=== PATIENT | female | born 1970 | race Native Hawaiian/Other Pacific Islander ===

== ENCOUNTER 2017-05-27 09:51 | Inpatient (IN) | payer OTHER ==
[2017-05-27 10:00] VITALS: BMI 31.2
--- NOTE | 2017-05-27 10:55 | C.PDOC ---
History Of Present Illness 46 y/o female presents to ED sent by [employer] for urgent dialysis secondary to onset Uremia. Patient saw m1 armor crewman yesterday who instructed for patient to come to ED for dialysis. Patient denies sob, chest pain, confusion or any other complaints at this time. PMD: Dr. Carrera Time Seen by Provider: 05/27/17 10:06 Chief Complaint (Nursing): Female Genitourinary History Per: Patient History/Exam Limitations: no limitations Onset/Duration Of Symptoms: Days Current Symptoms Are (Timing): Still Present Past Medical History Reviewed: Historical Data, Nursing Documentation, Vital Signs Vital Signs: Last Vital Signs Temp 97.6 F 05/29/17 12:07 Pulse 88 05/29/17 12:07 Resp 20 05/29/17 12:07 BP 134/74 05/29/17 12:07 Pulse Ox 96 05/29/17 12:07 - Medical History PMH: HTN Surgical History: No Surg Hx Family History: States: No Known Family Hx - Social History Hx Alcohol Use: No Hx Substance Use: No - Immunization History Hx Tetanus Toxoid Vaccination: No Hx Influenza Vaccination: No Hx Pneumococcal Vaccination: No Review Of Systems Except As Marked, All Systems Reviewed And Found Negative. Constitutional: Negative for: Fever, Chills Cardiovascular: Negative for: Chest Pain Respiratory: Negative for: Shortness of Breath Gastrointestinal: Negative for: Nausea, Vomiting Skin: Negative for: Rash Physical Exam - Physical Exam Appears: Non-toxic, No Acute Distress Skin: Warm, Dry, No Rash Head: Atraumatic, Normacephalic Oral Mucosa: Moist Neck: Normal ROM, Supple Cardiovascular: Rhythm Regular Respiratory: Normal Breath Sounds, No Rales, No Rhonchi, No Wheezing Gastrointestinal/Abdominal: Soft, No Tenderness, No Guarding, No Rebound Extremity: Normal ROM, Capillary Refill (<2 seconds) Neurological/Psych: Oriented x3 ED Course And Treatment - Laboratory Results Result Diagrams: 05/29/17 08:06 05/29/17 08:06 O2 Sat by Pulse Oximetry: 100 (RA) Pulse Ox Interpretation: Normal Medical Decision Making Medical Decision Making: Plan: Blood work Progress: 11am- patient seen at ED by Dr. ricardo and Dr. Liriano Disposition - Disposition Disposition: HOSPITALIZED Disposition Time: 11:24 Condition: STABLE - Clinical Impression Clinical Impression: Renal failure - Scribe Statement The provider has reviewed the documentation as recorded by the Muna Wan All medical record entries made by the Muna were at my direction and personally dictated by me. I have reviewed the chart and agree that the record accurately reflects my personal performance of the history, physical exam, medical decision making, and the department course for this patient. I have also personally directed, reviewed, and agree with the discharge instructions and disposition.
[2017-05-27 10:59] LABS: BASO % 0.3 % (0.0-2.0); EOS # 1.2 K/uL (0.0-0.7); EOS % 13.6 % (0.0-4.0); HEMOGLOBIN 8.8 g/dL (11.0-16.0); LYMPH # 1.3 K/uL (1.0-4.3); LYMPH % 14.5 % (20.0-40.0); MEAN CELL VOLUME 93.3 fL (81.0-99.0); MEAN CORPUSCULAR HEMOGLOBIN 31.6 pg (27.0-31.0); MEAN CORPUSCULAR HGB CONC 33.8 g/dL (33.0-37.0); MEAN PLATELET VOLUME 9.5 fL (7.2-11.7); MONO # 0.5 K/uL (0.0-0.8); NEUT # 5.8 K/uL (1.8-7.0); NEUT % 65.6 % (50.0-75.0); NRBC % 0.1 % (0.0-2.0); RBC 2.77 Mil/uL (3.80-5.20); RED CELL DISTRIBUTION WIDTH 15.6 % (11.5-14.5); WHITE BLOOD COUNT 8.9 K/uL (4.8-10.8)
[2017-05-27] MEDS ORDERED: ceFAZolin IV 1 gm in Dextrose 1 GM/50 ML BAG IVPB ONE (11:42)
[2017-05-27] MEDS ORDERED: Lidocaine 1% Inj (20ml) ONE (11:42)
[2017-05-27] MEDS ORDERED: HEPARIN-NS 5,000 UNITS/500 ML 5,000 UNIT/500 ML BAG IV ONE (11:42)
[2017-05-27] MEDS ORDERED: Sodium Chloride 0.9% 500 ML IV ONE (11:45)
[2017-05-27 11:46] LABS: ALB/GLOB RATIO 0.9 (1.0-2.1); ALBUMIN 3.5 g/dL (3.5-5.0); CALCIUM 4.7 mg/dl (8.6-10.4)
[2017-05-27] MEDS ORDERED: Midazolam 2 MG/2 ML VIAL ONE (12:01)
[2017-05-27] MEDS ORDERED: Propofol 10 mg/ml Inj (20 ML) ONE (12:06)
[2017-05-27] MEDS ORDERED: Bacitracin Ointment 30 GM TUBE ONE (12:17)
--- NOTE | 2017-05-27 12:50 | PCM.SURG1 ---
Surgeon's Initial Post Op Note - Surgeon's Notes Surgeon: Jennifer Combine Operator: PGY4 Type of Anesthesia: General Endo, Local Pre-Operative Diagnosis: ESRD Operative Findings: see op note Post-Operative Diagnosis: ESRD Operation Performed: R IJ [email or web address] Specimen/Specimens Removed: n/a Estimated Blood Loss: EBL {In ML}: 20 Blood Products Given: N/A Drains Used: No Drains Post-Op Condition: Good Date of Surgery/Procedure: 05/27/17 Time of Surgery/Procedure: 11:50
[2017-05-27] MEDS ORDERED: Oxycodone/Acetaminophen 5/325 mg Tab PO PRN (12:51)
--- NOTE | 2017-05-27 13:53 | RAD ---
Chest x-ray single frontal view History: PermCath placement. Comparison: None available. Findings: Right central venous catheter tip extending into the right atrium. Mild venous congestion. Patchy increased markings at the left lung base. Tortuous ectatic aorta. Cardiomegaly. Degenerative changes in the spine. Impression: Right central venous catheter tip extending into the right atrium. Mild venous congestion. Patchy increased markings at the left lung base. Tortuous ectatic aorta. Cardiomegaly.
--- NOTE | 2017-05-27 14:22 | RAD ---
PROCEDURE: Intraoperative Fluoroscopy. HISTORY: RENAL FAILURE FINDINGS: Fluoroscopic assistance was provided for right-sided PermCath placement. Please refer to the operative report from
[2017-05-27 16:40] LABS: HEPATITIS B SURFACE AG NEGATIVE (NEGATIVE)
[2017-05-27 16:45] LABS: FERRITIN 28.8 ng/mL; HEPATITIS B CORE AB Negative (NEGATIVE)
[2017-05-27 16:57] LABS: HEPATITIS C ANTIBODY Negative (NEGATIVE)
--- NOTE | 2017-05-27 17:03 | CP.PCM.HP ---
History of Present Illness - History of Present Illness History of Present Illness: CC: for Dialysis HPI: 46 year old female. h/o HTN, Renal Disease, Non-compliant c/o skin rash " all over". Blood test suggestive for renal failure. dialysis and Advised to F /u Dr. Granados. Advised admission for dialysis and renal catheter insertion. Present on Admission - Present on Admission Any Indicators Present on Admission: Yes History of DVT/PE: No History of Uncontrolled Diabetes: No Urinary Catheter: No Decubitus Ulcer Present: No Review of Systems - Review of Systems All systems: reviewed and no additional remarkable complaints except (skin rash , fatigue) Past Patient History - Infectious Disease Hx of Infectious Diseases: None - Tetanus Immunizations Tetanus Immunization: Unknown - Past Medical History & Family History Past Medical History?: Yes - Past Social History Smoking Status: Never Smoked Chewing Tobacco Use: No Cigar Use: No Alcohol: None Home Situation {Lives}: With Family - CARDIAC Hx Hypertension: Yes - PSYCHIATRIC Hx Substance Use: No - SURGICAL HISTORY Hx Surgeries: No - ANESTHESIA Hx Anesthesia: No Meds Allergies/Adverse Reactions: Allergies Allergy/AdvReac Type Severity Reaction Status Date / Time EGG Allergy ITCHING Verified 05/28/17 15:42 Physical Exam - Constitutional Appears: No Acute Distress - Head Exam Head Exam: NORMAL INSPECTION - Eye Exam Eye Exam: Normal appearance - ENT Exam ENT Exam: Normal Exam - Neck Exam Neck exam: Positive for: Normal Inspection - Respiratory Exam Respiratory Exam: NORMAL BREATHING PATTERN - Cardiovascular Exam Cardiovascular Exam: REGULAR RHYTHM - GI/Abdominal Exam GI & Abdominal Exam: Soft - Rectal Exam Rectal Exam: Deferred - Extremities Exam Extremities exam: Negative for: pedal edema - Back Exam Back exam: NORMAL INSPECTION - Neurological Exam Neurological exam: Alert - Psychiatric Exam Psychiatric exam: Anxious - Skin Skin Exam: Dry, Rash Results - Vital Signs Recent Vital Signs: Last Vital Signs Temp 97.4 F L 05/27/17 15:25 Pulse 79 05/27/17 16:08 Resp 18 05/27/17 16:08 BP 148/82 05/27/17 16:25 Pulse Ox 100 05/27/17 15:25 - Labs Result Diagrams: 05/29/17 08:06 05/29/17 08:06 Labs: Laboratory Results - last 24 hr 05/27/17 05/27/17 05/27/17 10:49 11:02 11:25 WBC 8.9 RBC 2.77 L Hgb 8.8 L Hct 25.9 L MCV 93.3 MCH 31.6 H MCHC 33.8 RDW 15.6 H Plt Count 289 MPV 9.5 Neut % (Auto) 65.6 Lymph % (Auto) 14.5 L [place] % (Auto) 6.0 Eos % (Auto) 13.6 H Baso % (Auto) 0.3 Neut # 5.8 Lymph # 1.3 [place] # 0.5 Eos # 1.2 H Baso # 0.0 Sodium 137 Potassium 4.0 Chloride 109 H Carbon Dioxide 12 L Anion Gap 20 BUN 84 H Creatinine 12.4 H* Est GFR ( Amer) 4 Est GFR (Non-Af Amer) 3 Random Glucose 92 Calcium 4.7 L* % Saturation Ferritin Total Bilirubin 0.4 AST 43 H ALT 36 Alkaline Phosphatase 84 Total Protein 7.4 Albumin 3.5 Globulin 3.9 Albumin/Globulin Ratio 0.9 L Urine HCG, Qual Negative Hep Bs Antigen Hep Bs Antibody Hep B Core IgM Ab Hepatitis C Antibody 05/27/17 05/27/17 05/27/17 15:42 15:42 15:42 WBC RBC Hgb Hct MCV MCH MCHC RDW Plt Count MPV Neut % (Auto) Lymph % (Auto) [place] % (Auto) Eos % (Auto) Baso % (Auto) Neut # Lymph # [place] # Eos # Baso # Sodium Potassium Chloride Carbon Dioxide Anion Gap BUN Creatinine Est GFR ( Amer) Est GFR (Non-Af Amer) Random Glucose Calcium % Saturation 15 L Ferritin 28.8 Total Bilirubin AST ALT Alkaline Phosphatase Total Protein Albumin Globulin Albumin/Globulin Ratio Urine HCG, Qual Hep Bs Antigen Negative Hep Bs Antibody Positive Hep B Core IgM Ab Negative Hepatitis C Antibody Negative Assessment & Plan (1) Renal failure Status: Acute (2) Anemia Status: Chronic (3) HTN (hypertension) Status: Chronic - Assessment and Plan (Free Text) Assessment: A/P: Continue medications. Appreciate Renal notes - Date & Time Date: 05/27/17 Time: 17:07
[2017-05-27] MEDS: Sodium Chloride 0.9% 1,000 ML IV SCH (20:06)
--- NOTE | 2017-05-27 23:25 | OP ---
PROCEDURE DATE: 05/27/2017 PREOPERATIVE DIAGNOSIS: Renal failure. POSTOPERATIVE DIAGNOSIS: Renal failure. PROCEDURE CARRIED OUT: Placement of Perm-A-Cath, right jugular vein, with C-arm fluoroscopy, ultrasound-guided puncture, and micropuncture technique. SURGEON: Dr. Rodriguez. ROUTING EQUIPMENT TENDER: Dr. Friedman. ANESTHESIOLOGIST: Dr. Swenson. INDICATIONS: A 46-year-old [place] woman with shortness of breath and other problems associated with her renal failure who was admitted through the emergency room and seen on an emergency basis. OPERATIVE FINDINGS: Catheter was inserted uneventfully via the jugular vein. DESCRIPTION OF PROCEDURE: Patient was given local anesthesia. Using ultrasound guidance and micropuncture technique, the right jugular vein was punctured. Under fluoroscopic control, guidewire was advanced centrally. A sheath dilator was passed over this and the catheter was positioned with the tip in the superior vena cava and right atrial junction and brought out on the right chest wall via the right internal jugular vein. Subsequent to the placement of the catheter, it was secured to the skin with nylon sutures and compressive dressing applied. Blood loss of the procedure was 10 to 20 mL. The operation carried out is Perm-A-Cath on right jugular vein with C-arm fluoroscopy, ultrasound-guided puncture, and micropuncture technique. Ultrasound images of the neck showed the vein was 15 mm in diameter with normal compressibility and no evidence of intraluminal thrombosis. Jesse Rodriguez Jr., MD cc: Dr. Celeste.
--- NOTE | 2017-05-28 08:37 | CP.PCM.PN ---
Subjective - Date & Time of Evaluation Date of Evaluation: 05/28/17 Time of Evaluation: 08:24 - Subjective Subjective: Pt no complain. No CP, no SOB, no cough, no palpitation. no n/v, o diarrhea, Justt sore on R chest c/o procedure. Objective - Vital Signs/Intake and Output Vital Signs (last 24 hours): Temp Pulse Resp BP Pulse Ox 98.2 F 90 18 129/75 99 05/27/17 23:35 05/28/17 00:00 05/27/17 23:35 05/27/17 23:35 05/27/17 23:35 Intake and Output: 05/28/17 05/28/17 06:59 18:59 Intake Total 520 Balance 520 - Medications Medications: Current Medications Sodium Chloride (Sodium Chloride 0.9%) 1,000 mls @ 50 mls/hr IV .Q20H [facility] Last Admin: 05/27/17 20:06 Dose: 50 mls/hr Oxycodone/Acetaminophen (Percocet 5/325 Mg Tab) 1 tab PO Q6H PRN PRN Reason: Pain, moderate (4-7) Stop: 05/30/17 12:52 Pneumococcal Polyvalent Vaccine (Pneumovax 23 Vaccine) 0.5 ml IM .ONCE ONE Stop: 05/29/17 10:01 - Labs Labs: 05/27/17 10:49 05/27/17 11:25 - Constitutional Appears: No Acute Distress - Eye Exam Eye Exam: Normal appearance - ENT Exam ENT Exam: Mucous Membranes Moist - Respiratory Exam Respiratory Exam: Decreased Breath Sounds. absent: Rales, Rhonchi, Wheezes - Cardiovascular Exam Cardiovascular Exam: REGULAR RHYTHM, +S1, +S2. absent: Gallop, JVD, Murmur - GI/Abdominal Exam GI & Abdominal Exam: absent: Tenderness, Mass - Extremities Exam Extremities Exam: Full ROM, Normal Capillary Refill. absent: Calf Tenderness, Joint Swelling Assessment and Plan - Assessment and Plan (Free Text) Assessment: End stage renal disease For dialysis Supportive care
[2017-05-28] MEDS ORDERED: DiphenhydrAMINE 50 mg/ml Inj IVP STA (10:13)
[2017-05-28] MEDS: Sodium Chloride 0.9% 1,000 ML IV SCH ×2 (10:39→18:54)
--- NOTE | 2017-05-28 12:29 | CP.PCM.PN ---
Subjective - Date & Time of Evaluation Date of Evaluation: 05/28/17 Time of Evaluation: 07:05 - Subjective Subjective: Vascular Surgery Note for Dr. Rodriguez Patient seen and examined at bedside. No acute event overnight. She is s/p permacath insertion POD#1. Pain is controlled. Patient has no complaints. Objective - Vital Signs/Intake and Output Vital Signs (last 24 hours): Temp Pulse Resp BP Pulse Ox 98.5 F 65 20 116/59 L 96 05/28/17 08:37 05/28/17 08:37 05/28/17 08:37 05/28/17 08:37 05/28/17 08:37 Intake and Output: 05/28/17 05/28/17 06:59 18:59 Intake Total 520 Balance 520 - Medications Medications: Current Medications Sodium Chloride (Sodium Chloride 0.9%) 1,000 mls @ 50 mls/hr IV .Q20H [facility] Last Admin: 05/28/17 10:39 Dose: Not Given Oxycodone/Acetaminophen (Percocet 5/325 Mg Tab) 1 tab PO Q6H PRN PRN Reason: Pain, moderate (4-7) Stop: 05/30/17 12:52 Pneumococcal Polyvalent Vaccine (Pneumovax 23 Vaccine) 0.5 ml IM .ONCE ONE Stop: 05/29/17 10:01 - Labs Labs: 05/27/17 10:49 05/27/17 11:25 - Constitutional Appears: No Acute Distress - Head Exam Head Exam: ATRAUMATIC, NORMOCEPHALIC - Eye Exam Eye Exam: Normal appearance - ENT Exam ENT Exam: Mucous Membranes Moist - Neck Exam Additional comments: r sided permacath - Respiratory Exam Respiratory Exam: NORMAL BREATHING PATTERN - Cardiovascular Exam Cardiovascular Exam: REGULAR RHYTHM - GI/Abdominal Exam GI & Abdominal Exam: Soft. absent: Tenderness - Extremities Exam Extremities Exam: Normal Capillary Refill - Neurological Exam Neurological Exam: Alert, Awake, Oriented x3 - Psychiatric Exam Psychiatric exam: Anxious, Normal Mood - Skin Skin Exam: Dry, Intact, Normal Color, Warm Assessment and Plan - Assessment and Plan (Free Text) Plan: 46 F with ESRD requiring HD, s/p permacath insertion POD#1 -Plan for AVF creation Wednesday -Arm restriction -f/u vein mapping -NPO past MN Wednesday evening -Discussed with Dr. Jennifer Clifford PGY1
--- NOTE | 2017-05-28 14:50 | CP.PCM.CON ---
History of Present Illness - History of Present Illness History of Present Illness: 46 y/o FF admitted with progressive weakness, nausea, ELENA and pruritis associated with creatinine 12. Told of CKD 5- admitted for initiation of dialysis. Will transition to CAPD HD started 05/28- tolerated well. Presumptive dx IgA nephropathy- no bx done PMH: HTN DM 2 CKD 5 MICROSCOPIC HEMATURIA/ PROTEINURIA PSH- NONE Review of Systems - Constitutional Constitutional: Fatigue, Malaise, Weakness - EENT Eyes: absent: As Per HPI, Blind Spots, Blurred Vision, Change in Vision, Decreased Night Vision, Diplopia, Discharge, Dry Eye, Exophthalmos, Floaters, Irritation, Itchy Eyes, Loss of Peripheral Vision, Pain, Photophobia, Requires Corrective Lenses, Sees Flashes, Spots in Vision, Tunnel Vision, Other Visual Disturbances, Loss of Vision, Other Ears: absent: As Per HPI, Decreased Hearing, Ear Discharge, Ear Pain, Tinnitus, Abnormal Hearing, Disequilibrium, Dizziness, Other Nose/Mouth/Throat: absent: As Per HPI, Epistaxis, Nasal Congestion, Nasal Discharge, Nasal Obstruction, Nasal Trauma, Nose Pain, Post Nasal Drip, Sinus Pain, Sinus Pressure, Bleeding Gums, Change in Voice, Dental Pain, Dry Mouth, Dysphagia, Halitosis, Hoarsness, Lip Swelling, Mouth Lesions, Mouth Pain, Odynophagia, Sore Throat, Throat Swelling, Tongue Swelling, Facial Pain, Neck Pain, Neck Mass, Other - Cardiovascular Cardiovascular: Dyspnea on Exertion, Leg Edema - Respiratory Respiratory: Cough - Gastrointestinal Gastrointestinal: Dysphagia, Nausea - Genitourinary Genitourinary: As Per HPI - Musculoskeletal Musculoskeletal: Muscle Cramps, Muscle Weakness - Integumentary Integumentary: As Per HPI - Neurological Neurological: Weakness Past Patient History - Infectious Disease Hx of Infectious Diseases: None - Tetanus Immunizations Tetanus Immunization: Unknown - Past Medical History & Family History Past Medical History?: Yes Past Family History: Reviewed and not pertinent - Past Social History Smoking Status: Never Smoked Chewing Tobacco Use: No Cigar Use: No Alcohol: None Drugs: Denies Home Situation {Lives}: With Family - CARDIAC Hx Hypertension: Yes - PULMONARY Hx Respiratory Disorders: No - NEUROLOGICAL Hx Neurological Disorder: No - HEENT Hx HEENT Problems: No - RENAL Hx Chronic Kidney Disease: No - ENDOCRINE/METABOLIC Hx Endocrine Disorders: No - HEMATOLOGICAL/ONCOLOGICAL Hx Blood Transfusions: No - INTEGUMENTARY Hx Dermatological Problems: No - MUSCULOSKELETAL/RHEUMATOLOGICAL Hx Falls: No - GASTROINTESTINAL Hx Gastrointestinal Disorders: No - GENITOURINARY/GYNECOLOGICAL Hx Genitourinary Disorders: No - PSYCHIATRIC Hx Substance Use: No - SURGICAL HISTORY Hx Surgeries: No - ANESTHESIA Hx Anesthesia: No Hx Anesthesia Reactions: No Hx Malignant Hyperthermia: No Has any member of the family had a problem w/ anesthesia?: No Meds Allergies/Adverse Reactions: Allergies Allergy/AdvReac Type Severity Reaction Status Date / Time No Known Allergies Allergy Verified 05/27/17 09:59 - Medications Medications: Current Medications Sodium Chloride (Sodium Chloride 0.9%) 1,000 mls @ 50 mls/hr IV .Q20H [facility] Last Admin: 05/28/17 10:39 Dose: Not Given Oxycodone/Acetaminophen (Percocet 5/325 Mg Tab) 1 tab PO Q6H PRN PRN Reason: Pain, moderate (4-7) Stop: 05/30/17 12:52 Pneumococcal Polyvalent Vaccine (Pneumovax 23 Vaccine) 0.5 ml IM .ONCE ONE Stop: 05/29/17 10:01 Physical Exam - Constitutional Appears: No Acute Distress, Chronically Ill - Head Exam Head Exam: ATRAUMATIC, NORMAL INSPECTION - Eye Exam Eye Exam: EOMI, Normal appearance - Neck Exam Neck exam: Positive for: Normal Inspection. Negative for: Tenderness - Respiratory Exam Respiratory Exam: Clear to Auscultation Bilateral, NORMAL BREATHING PATTERN - Cardiovascular Exam Cardiovascular Exam: REGULAR RHYTHM, +S1 - GI/Abdominal Exam GI & Abdominal Exam: Soft. absent: Tenderness - Extremities Exam Extremities exam: Positive for: normal inspection, pedal edema - Neurological Exam Neurological exam: Alert, CN II-XII Intact - Skin Skin Exam: Dry, Warm Results - Vital Signs Recent Vital Signs: Last Vital Signs Temp 98.5 F 05/28/17 08:37 Pulse 65 05/28/17 08:37 Resp 20 05/28/17 08:37 BP 116/59 L 05/28/17 08:37 Pulse Ox 96 05/28/17 08:37 - Labs Result Diagrams: 05/27/17 10:49 05/27/17 11:25 Labs: Laboratory Results - last 24 hr 05/27/17 05/27/17 05/27/17 15:42 15:42 15:42 % Saturation 15 L Ferritin 28.8 Hep Bs Antigen Negative Hep Bs Antibody Positive Hep B Core IgM Ab Negative Hepatitis C Antibody Negative Assessment & Plan (1) IgA nephropathy Status: Acute (2) Hypertensive chronic kidney disease with stage 5 chronic kidney disease or end stage renal disease Status: Acute (3) Type 2 diabetes mellitus with diabetic nephropathy Status: Acute (4) Hypocalcemia Status: Acute - Assessment and Plan (Free Text) Plan: Dialysis in AM then MWF PD cath placement IV Fe
[2017-05-28] MEDS ORDERED: Ferric Sodium Gluconat Complex 62.5 mg/5 ml Vial IVPB SCH (15:00)
[2017-05-28] MEDS: Ferric Sodium Gluconat Complex 125 MG in Sodium Chloride 0.9% 100 ML IVPB SCH (20:38)
[2017-05-29] MEDS: Sodium Chloride 0.9% 1,000 ML IV SCH (05:24)
[2017-05-29 08:23] LABS: HEMOGLOBIN 7.8 g/dL (11.0-16.0); MEAN CELL VOLUME 94.1 fL (81.0-99.0); MEAN PLATELET VOLUME 8.7 fL (7.2-11.7); RBC 2.53 Mil/uL (3.80-5.20); RED CELL DISTRIBUTION WIDTH 15.3 % (11.5-14.5); WHITE BLOOD COUNT 6.1 K/uL (4.8-10.8)
[2017-05-29 08:48] LABS: ALB/GLOB RATIO 0.9 (1.0-2.1); ALBUMIN 3.2 g/dL (3.5-5.0); CALCIUM 5.3 mg/dl (8.6-10.4)
--- NOTE | 2017-05-29 09:47 | CP.PCM.PN ---
Subjective - Date & Time of Evaluation Date of Evaluation: 05/29/17 Time of Evaluation: 09:45 - Subjective Subjective: Surgery Pt s&e. Pt had HD yesterday and today. Denies F/C/N/V/D/CP/SOB Objective - Vital Signs/Intake and Output Vital Signs (last 24 hours): Temp Pulse Resp BP Pulse Ox 98.7 F 91 H 17 149/86 98 05/29/17 09:05 05/29/17 09:05 05/29/17 09:05 05/29/17 09:35 05/29/17 09:05 Intake and Output: 05/29/17 05/29/17 06:59 18:59 Intake Total 400 Balance 400 - Medications Medications: Current Medications Calcium Acetate (Phoslo) 1,334 mg PO TID [facility] Last Admin: 05/28/17 18:55 Dose: 1,334 mg Sodium Chloride (Sodium Chloride 0.9%) 1,000 mls @ 50 mls/hr IV .Q20H [facility] Last Admin: 05/29/17 05:24 Dose: Not Given Ferric Sodium Gluconate Complex 125 mg/ Sodium Chloride 110 mls @ 110 mls/hr IVPB DAILY [facility] Stop: 06/05/17 15:01 Last Admin: 05/28/17 20:38 Dose: 110 mls/hr Oxycodone/Acetaminophen (Percocet 5/325 Mg Tab) 1 tab PO Q6H PRN PRN Reason: Pain, moderate (4-7) Stop: 05/30/17 12:52 Pneumococcal Polyvalent Vaccine (Pneumovax 23 Vaccine) 0.5 ml IM .ONCE ONE Stop: 05/29/17 10:01 - Labs Labs: 05/29/17 08:06 05/29/17 08:06 - Constitutional Appears: No Acute Distress - Head Exam Head Exam: ATRAUMATIC, NORMAL INSPECTION, NORMOCEPHALIC - Eye Exam Eye Exam: EOMI, Normal appearance, PERRL Pupil Exam: NORMAL ACCOMODATION, PERRL - ENT Exam ENT Exam: Mucous Membranes Moist, Normal Exam - Neck Exam Neck Exam: Full ROM, Normal Inspection. absent: Lymphadenopathy - Respiratory Exam Respiratory Exam: Clear to Ausculation Bilateral, NORMAL BREATHING PATTERN - Cardiovascular Exam Cardiovascular Exam: REGULAR RHYTHM, +S1, +S2. absent: Murmur - GI/Abdominal Exam GI & Abdominal Exam: Soft, Normal Bowel Sounds. absent: Distended, Tenderness - Rectal Exam Rectal Exam: NORMAL INSPECTION - Exam Exam: NORMAL INSPECTION External exam: NORMAL EXTERNAL EXAM - Extremities Exam Extremities Exam: Full ROM, Normal Capillary Refill, Normal Inspection. absent : Joint Swelling, Pedal Edema - Back Exam Back Exam: NORMAL INSPECTION - Neurological Exam Neurological Exam: Alert, Awake, CN II-XII Intact, Normal Gait, Oriented x3 - Psychiatric Exam Psychiatric exam: Normal Affect, Normal Mood - Skin Skin Exam: Dry, Intact, Normal Color, Warm Assessment and Plan - Assessment and Plan (Free Text) Assessment: 46 F with ESRD requiring HD, s/p permacath insertion POD#2 -Plan for PD catheter on Mon -NPO past MN Wednesday evening -Discussed with Dr. Rodriguez
[2017-05-29] MEDS ORDERED: Pneumococcal 23-Valent Vaccine IM ONE (10:00)
[2017-05-29] MEDS ORDERED: Epoetin Alfa 10,000 unit/ml Dialysis IV ONE (10:01)
--- NOTE | 2017-05-29 10:03 | CP.PCM.PN ---
Subjective - Date & Time of Evaluation Date of Evaluation: 05/29/17 Time of Evaluation: 10:15 - Subjective Subjective: presently on dialysis afebrile hct around 23 k low awake alert comfortable ROS no headache no chest vpain sob palpitations no abdomenal pain nausea vomting diarrhea no dysuria Objective - Vital Signs/Intake and Output Vital Signs (last 24 hours): Temp Pulse Resp BP Pulse Ox 98.7 F 91 H 17 149/86 98 05/29/17 09:05 05/29/17 09:05 05/29/17 09:05 05/29/17 09:35 05/29/17 09:05 Intake and Output: 05/29/17 05/29/17 06:59 18:59 Intake Total 400 Balance 400 - Medications Medications: Current Medications Calcium Acetate (Phoslo) 1,334 mg PO TID [facility] Last Admin: 05/28/17 18:55 Dose: 1,334 mg Sodium Chloride (Sodium Chloride 0.9%) 1,000 mls @ 50 mls/hr IV .Q20H [facility] Last Admin: 05/29/17 05:24 Dose: Not Given Ferric Sodium Gluconate Complex 125 mg/ Sodium Chloride 110 mls @ 110 mls/hr IVPB DAILY [facility] Stop: 06/05/17 15:01 Last Admin: 05/28/17 20:38 Dose: 110 mls/hr Oxycodone/Acetaminophen (Percocet 5/325 Mg Tab) 1 tab PO Q6H PRN PRN Reason: Pain, moderate (4-7) Stop: 05/30/17 12:52 Pneumococcal Polyvalent Vaccine (Pneumovax 23 Vaccine) 0.5 ml IM .ONCE ONE Stop: 05/29/17 10:01 - Labs Labs: 05/29/17 08:06 05/29/17 08:06 - Constitutional Appears: Well, No Acute Distress - Eye Exam Eye Exam: Normal appearance - ENT Exam ENT Exam: Mucous Membranes Moist - Respiratory Exam Respiratory Exam: Clear to Ausculation Bilateral - Cardiovascular Exam Cardiovascular Exam: REGULAR RHYTHM - GI/Abdominal Exam GI & Abdominal Exam: Soft. absent: Distended, Tenderness - Extremities Exam Extremities Exam: absent: Calf Tenderness - Neurological Exam Neurological Exam: Alert, Awake - Skin Skin Exam: Dry Assessment and Plan (1) IgA nephropathy Status: Acute (2) Type 2 diabetes mellitus with diabetic nephropathy Status: Acute (3) HTN (hypertension) Status: Chronic - Assessment and Plan (Free Text) Plan: epogen ordered iron ordered try to remove 1 kg tenckoff catheter insertion 05/31
[2017-05-29] MEDS: Ferric Sodium Gluconat Complex 125 MG in Sodium Chloride 0.9% 100 ML IVPB SCH (11:29)
[2017-05-30] MEDS: Sodium Chloride 0.9% 1,000 ML IV SCH ×2 (00:22→01:57)
--- NOTE | 2017-05-30 08:41 | CP.PCM.PN ---
Subjective - Date & Time of Evaluation Date of Evaluation: 05/30/17 Time of Evaluation: 08:39 - Subjective Subjective: Surgery Pt s&e. NAEON. Denies F/C/N/V/D/Cp/SOB/dizzienss. Objective - Vital Signs/Intake and Output Vital Signs (last 24 hours): Temp Pulse Resp BP Pulse Ox 97.7 F 81 18 122/72 100 05/30/17 08:25 05/30/17 08:25 05/30/17 08:25 05/30/17 08:25 05/30/17 08:25 Intake and Output: 05/30/17 05/30/17 06:59 18:59 Intake Total 1040 Balance 1040 - Medications Medications: Current Medications Calcium Acetate (Phoslo) 1,334 mg PO TID [facility] Last Admin: 05/29/17 18:37 Dose: 1,334 mg Epoetin Milton (Procrit) 10,000 unit IV MWF [facility] Sodium Chloride (Sodium Chloride 0.9%) 1,000 mls @ 50 mls/hr IV .Q20H [facility] Last Admin: 05/30/17 01:57 Dose: Not Given Ferric Sodium Gluconate Complex 125 mg/ Sodium Chloride 110 mls @ 110 mls/hr IVPB DAILY [facility] Stop: 06/05/17 15:01 Last Admin: 05/29/17 11:29 Dose: 110 mls/hr Oxycodone/Acetaminophen (Percocet 5/325 Mg Tab) 1 tab PO Q6H PRN PRN Reason: Pain, moderate (4-7) Stop: 05/30/17 12:52 - Labs Labs: 05/29/17 08:06 05/29/17 08:06 - Constitutional Appears: No Acute Distress - Head Exam Head Exam: ATRAUMATIC, NORMAL INSPECTION, NORMOCEPHALIC - Eye Exam Eye Exam: EOMI, Normal appearance, PERRL Pupil Exam: NORMAL ACCOMODATION, PERRL - ENT Exam ENT Exam: Mucous Membranes Moist, Normal Exam - Neck Exam Neck Exam: Full ROM, Normal Inspection. absent: Lymphadenopathy - Respiratory Exam Respiratory Exam: Clear to Ausculation Bilateral, NORMAL BREATHING PATTERN - Cardiovascular Exam Cardiovascular Exam: REGULAR RHYTHM, +S1, +S2. absent: Murmur - GI/Abdominal Exam GI & Abdominal Exam: Soft, Normal Bowel Sounds. absent: Tenderness - Extremities Exam Extremities Exam: Full ROM, Normal Capillary Refill, Normal Inspection. absent : Joint Swelling, Pedal Edema - Back Exam Back Exam: NORMAL INSPECTION - Neurological Exam Neurological Exam: Alert, Awake, CN II-XII Intact, Normal Gait, Oriented x3 - Psychiatric Exam Psychiatric exam: Normal Affect, Normal Mood - Skin Skin Exam: Dry, Intact, Normal Color, Warm Additional comments: Permacath in place. Assessment and Plan - Assessment and Plan (Free Text) Assessment: 46 F with ESRD requiring HD, s/p permacath insertion POD#3 -Plan for PD catheter on Mon -NPO past MN Wednesday evening -Discussed with Dr. Rodriguez
[2017-05-30] MEDS: Ferric Sodium Gluconat Complex 125 MG in Sodium Chloride 0.9% 100 ML IVPB SCH (10:18)
--- NOTE | 2017-05-30 12:18 | CP.PCM.PN ---
Subjective - Date & Time of Evaluation Date of Evaluation: 05/30/17 Time of Evaluation: 12:16 - Subjective Subjective: S: feels better. No fever. Objective - Vital Signs/Intake and Output Vital Signs (last 24 hours): Temp Pulse Resp BP Pulse Ox 97.7 F 81 18 122/72 100 05/30/17 08:25 05/30/17 08:25 05/30/17 08:25 05/30/17 08:25 05/30/17 08:25 Intake and Output: 05/30/17 05/30/17 06:59 18:59 Intake Total 1040 Balance 1040 - Medications Medications: Current Medications Calcium Acetate (Phoslo) 1,334 mg PO TID [facility] Last Admin: 05/30/17 10:21 Dose: 1,334 mg Epoetin Milton (Procrit) 10,000 unit IV MWF [facility] Sodium Chloride (Sodium Chloride 0.9%) 1,000 mls @ 50 mls/hr IV .Q20H [facility] Last Admin: 05/30/17 01:57 Dose: Not Given Ferric Sodium Gluconate Complex 125 mg/ Sodium Chloride 110 mls @ 110 mls/hr IVPB DAILY [facility] Stop: 06/05/17 15:01 Last Admin: 05/30/17 10:18 Dose: 110 mls/hr Oxycodone/Acetaminophen (Percocet 5/325 Mg Tab) 1 tab PO Q6H PRN PRN Reason: Pain, moderate (4-7) Stop: 05/30/17 12:52 - Labs Labs: 05/29/17 08:06 05/29/17 08:06 - Constitutional Appears: No Acute Distress - Head Exam Head Exam: NORMAL INSPECTION - Eye Exam Eye Exam: Normal appearance Pupil Exam: NORMAL ACCOMODATION - ENT Exam ENT Exam: Normal Exam - Neck Exam Neck Exam: Normal Inspection - Respiratory Exam Respiratory Exam: NORMAL BREATHING PATTERN - Cardiovascular Exam Cardiovascular Exam: REGULAR RHYTHM - GI/Abdominal Exam GI & Abdominal Exam: Soft - Rectal Exam Rectal Exam: Deferred - Extremities Exam Extremities Exam: Normal Inspection Assessment and Plan (1) Renal failure Status: Acute (2) Anemia Status: Chronic (3) HTN (hypertension) Status: Chronic - Assessment and Plan (Free Text) Assessment: A?P: for Dialysis catherter insertion. Continue medications. Eager to go home
[2017-05-31 07:44] LABS: HEMOGLOBIN 8.4 g/dL (11.0-16.0); MEAN CELL VOLUME 95.1 fL (81.0-99.0); MEAN CORPUSCULAR HEMOGLOBIN 31.6 pg (27.0-31.0); MEAN CORPUSCULAR HGB CONC 33.3 g/dL (33.0-37.0); MEAN PLATELET VOLUME 9.2 fL (7.2-11.7); RBC 2.67 Mil/uL (3.80-5.20); RED CELL DISTRIBUTION WIDTH 15.2 % (11.5-14.5); WHITE BLOOD COUNT 7.8 K/uL (4.8-10.8)
[2017-05-31 07:54] LABS: INR 1.1
[2017-05-31 08:37] LABS: ALB/GLOB RATIO 0.9 (1.0-2.1); ALBUMIN 3.4 g/dL (3.5-5.0); CALCIUM 7.3 mg/dl (8.6-10.4)
--- NOTE | 2017-05-31 09:11 | CP.PCM.PN ---
Subjective - Date & Time of Evaluation Date of Evaluation: 05/31/17 Time of Evaluation: 08:45 - Subjective Subjective: Pt no compalin; For insertion of peritoneal catheter. No CP, no SOB, no cough, no abd pain, no n/v, no dizziness Objective - Vital Signs/Intake and Output Vital Signs (last 24 hours): Temp Pulse Resp BP Pulse Ox 99 F 97 H 20 129/78 95 05/31/17 04:38 05/31/17 07:06 05/31/17 04:38 05/31/17 04:38 05/30/17 23:30 Intake and Output: 05/31/17 05/31/17 06:59 18:59 Intake Total 400 Balance 400 - Medications Medications: Current Medications Calcium Acetate (Phoslo) 1,334 mg PO TID [facility] Last Admin: 05/30/17 17:36 Dose: 1,334 mg Epoetin Milton (Procrit) 10,000 unit IV MWF [facility] Ferric Sodium Gluconate Complex 125 mg/ Sodium Chloride 110 mls @ 110 mls/hr IVPB DAILY [facility] Stop: 06/05/17 15:01 Last Admin: 05/30/17 10:18 Dose: 110 mls/hr - Labs Labs: 05/31/17 07:23 05/31/17 07:23 PT 12.0 SECONDS (9.7-12.2) 05/31/17 07:23 INR 1.1 05/31/17 07:23 APTT 30 SECONDS (21-34) 05/31/17 07:23 - Constitutional Appears: No Acute Distress - Eye Exam Eye Exam: Normal appearance - ENT Exam ENT Exam: Mucous Membranes Moist - Neck Exam Neck Exam: Full ROM. absent: Lymphadenopathy, Normal Inspection - Respiratory Exam Respiratory Exam: Clear to Ausculation Bilateral. absent: Decreased Breath Sounds, Rales, Rhonchi, Wheezes - Cardiovascular Exam Cardiovascular Exam: REGULAR RHYTHM, +S1, +S2. absent: Gallop, JVD, Murmur - GI/Abdominal Exam GI & Abdominal Exam: Soft. absent: Tenderness, Mass - Extremities Exam Extremities Exam: Full ROM, Normal Capillary Refill. absent: Calf Tenderness, Joint Swelling, Pedal Edema Assessment and Plan - Assessment and Plan (Free Text) Assessment: ESRD; HTN Cont meds/ supportive care For CAPD
[2017-05-31] MEDS: Ferric Sodium Gluconat Complex 125 MG in Sodium Chloride 0.9% 100 ML IVPB SCH ×2 (09:28→15:20)
[2017-05-31] MEDS ORDERED: Sodium Chloride 0.9% 1,000 ML IV ONE (10:10)
[2017-05-31] MEDS ORDERED: Propofol 10 mg/ml Inj (20 ML) ONE (10:16)
[2017-05-31] MEDS ORDERED: Succinylcholine Chloride 20 mg/ml Syr (5 ml) IV ONE (10:18)
[2017-05-31] MEDS ORDERED: Rocuronium 10 mg/ml (5 ml) ONE (10:19)
[2017-05-31] MEDS ORDERED: ceFAZolin IV 1 gm in Dextrose 1 GM/50 ML BAG IVPB ONE (10:20)
[2017-05-31] MEDS ORDERED: Lidocaine Hydrochloride 5 ML INJ ONE (10:21)
--- NOTE | 2017-05-31 12:37 | CP.PCM.PN ---
Subjective - Date & Time of Evaluation Date of Evaluation: 05/31/17 Time of Evaluation: 12:34 - Subjective Subjective: Seen post op PD cath inserion Sedated; cannot offer complaints BP stable; no known complications PD cath taped down in place Objective - Vital Signs/Intake and Output Vital Signs (last 24 hours): Temp Pulse Resp BP Pulse Ox 98.1 F 83 26 H 138/81 100 05/31/17 11:29 05/31/17 12:00 05/31/17 12:00 05/31/17 12:00 05/31/17 12:00 Intake and Output: 05/31/17 05/31/17 06:59 18:59 Intake Total 400 Balance 400 - Medications Medications: Current Medications Calcium Acetate (Phoslo) 1,334 mg PO TID [facility] Last Admin: 05/31/17 09:28 Dose: Not Given Epoetin Milton (Procrit) 10,000 unit IV MWF [facility] Hydromorphone HCl (Dilaudid) 1 mg IVP Q4H PRN PRN Reason: Pain, severe (8-10) Ferric Sodium Gluconate Complex 125 mg/ Sodium Chloride 110 mls @ 110 mls/hr IVPB DAILY [facility] Stop: 06/05/17 15:01 Last Admin: 05/31/17 09:28 Dose: Not Given Sodium Chloride (Sodium Chloride 0.9%) 1,000 mls @ 75 mls/hr IV .[id number] [facility] Morphine Sulfate (Morphine) 1 mg IVP Q10M PRN PRN Reason: Pain, moderate (4-7) Stop: 05/31/17 13:30 Ondansetron HCl (Zofran Inj) 4 mg IVP ONCE PRN PRN Reason: Nausea/Vomiting Stop: 05/31/17 13:31 Oxycodone/Acetaminophen (Percocet 5/325 Mg Tab) 2 tab PO Q4H PRN PRN Reason: Pain, moderate (4-7) Stop: 06/03/17 11:31 - Labs Labs: 05/31/17 07:23 05/31/17 07:23 PT 12.0 SECONDS (9.7-12.2) 05/31/17 07:23 INR 1.1 05/31/17 07:23 APTT 30 SECONDS (21-34) 05/31/17 07:23 - Constitutional Appears: No Acute Distress, Chronically Ill - Head Exam Head Exam: ATRAUMATIC, NORMAL INSPECTION - Eye Exam Eye Exam: EOMI, Normal appearance - Neck Exam Neck Exam: Normal Inspection. absent: Tenderness - Respiratory Exam Respiratory Exam: Clear to Ausculation Bilateral, NORMAL BREATHING PATTERN - Cardiovascular Exam Cardiovascular Exam: REGULAR RHYTHM, +S1 - GI/Abdominal Exam GI & Abdominal Exam: Soft. absent: Tenderness - Extremities Exam Extremities Exam: Normal Inspection. absent: Tenderness - Neurological Exam Neurological Exam: Altered, CN II-XII Intact - Skin Skin Exam: Dry, Warm Assessment and Plan (1) IgA nephropathy Status: Acute (2) Hypertensive chronic kidney disease with stage 5 chronic kidney disease or end stage renal disease Status: Acute (3) Type 2 diabetes mellitus with diabetic nephropathy Status: Acute (4) Hypocalcemia Status: Acute - Assessment and Plan (Free Text) Plan: stable post-op Will manage PD cath as outpt Needs dialysis today Maintain on ESAs, IV Fe Monitor BP Follow up adal
[2017-05-31] MEDS: Sodium Chloride 0.9% 1,000 ML IV SCH (13:11)
[2017-05-31] MEDS: Oxycodone/Acetaminophen 5/325 mg Tab PO PRN ×2 (13:14→18:47)
[2017-05-31] MEDS: Epoetin Alfa 10,000 unit/ml Dialysis IV SCH (15:16)
--- NOTE | 2017-05-31 15:26 | PCM.SURG1 ---
Surgeon's Initial Post Op Note - Surgeon's Notes Surgeon: Dr. Rodriguez [employer] Plumber: Lorena Osuna PGY2 Type of Anesthesia: General Endo Pre-Operative Diagnosis: Renal failure Operative Findings: NA Post-Operative Diagnosis: Same Operation Performed: Laparoscopic Peritoneal dialysis catheter insertion Specimen/Specimens Removed: None Estimated Blood Loss: EBL {In ML}: 20 Blood Products Given: N/A Post-Op Condition: Good Date of Surgery/Procedure: 05/31/17 Time of Surgery/Procedure: 15:26
--- NOTE | 2017-05-31 20:19 | OP ---
PROCEDURE DATE: 05/31/2017 PREOPERATIVE DIAGNOSIS: Renal failure. POSTOPERATIVE DIAGNOSIS: Renal failure. PROCEDURE CARRIED OUT: Laparoscopic placement of Tenckhoff peritoneal dialysis catheter. SURGEON: Jesse Rodriguez Jr., MD. AUTOPSY ASSISTANT: Dr. Lorena Osuna. ANESTHESIA ADMINISTERED BY: Petra Swenson MD. INDICATIONS: The patient is a young [place] woman with renal failure, who requests peritoneal dialysis. OPERATIVE FINDINGS: 1. There were no evidence of intraabdominal adhesions. 2. There was excellent return of the dialysate fluid that was placed in during the procedure. DESCRIPTION OF PROCEDURE: The patient was given general anesthesia and intravenous antibiotics. A Veress needle was inserted in the right upper quadrant and pneumoperitoneum was created. We then inserted a 5 mm trocar in the right upper quadrant, checked the abdomen, did not see any adhesions or any other problems of note. We then deployed from a puncture with an 8 mm trocar along the left rectus sheath and tunneled it through the rectus sheath down into the pelvis. Catheter was then positioned appropriately in the pelvis. We checked for flow. The cuffs were secured and the catheter was placed in the proper position. We then checked the flow and it was satisfactory. We then closed the wounds with 5 nylon sutures and terminated the procedure. Blood loss for procedure was less than 20 mL. Operation carried out, laparoscopic placement of Tenckhoff peritoneal dialysis catheter. Jesse Rodriguez Jr., MD cc: Dr. Moraes
--- NOTE | 2017-05-31 23:40 | CARD ---
APPROVED REPORT EKG Measurement Heart [id number] <Conclusion> Suspect arm lead reversal, interpretation assumes no reversal Unusual P axis, possible ectopic atrial rhythm Right superior axis deviation Cannot rule out Anterior infarct, age undetermined Abnormal ECG
[2017-06-01] MEDS: Sodium Chloride 0.9% 1,000 ML IV SCH ×2 (00:50→06:50)
--- NOTE | 2017-06-01 09:31 | CP.PCM.PN ---
Subjective - Date & Time of Evaluation Date of Evaluation: 06/01/17 Time of Evaluation: 09:15 - Subjective Subjective: Pt no complain exc pain on inf sertion site but relieved w/ meds No CP, no SOB, no cough, no diarrhea, no palpitation, no edema Objective - Vital Signs/Intake and Output Vital Signs (last 24 hours): Temp Pulse Resp BP Pulse Ox 98.1 F 94 H 20 137/81 96 06/01/17 08:00 06/01/17 08:00 06/01/17 08:00 06/01/17 08:00 06/01/17 08:00 Intake and Output: 06/01/17 06/01/17 06:59 18:59 Intake Total 700 Balance 700 - Medications Medications: Current Medications Calcium Acetate (Phoslo) 1,334 mg PO TID [facility] Last Admin: 05/31/17 18:22 Dose: 1,334 mg Epoetin Milton (Procrit) 10,000 unit IV MWF [facility] Last Admin: 05/31/17 15:16 Dose: 10,000 unit Hydromorphone HCl (Dilaudid) 1 mg IVP Q4H PRN PRN Reason: Pain, severe (8-10) Ferric Sodium Gluconate Complex 125 mg/ Sodium Chloride 110 mls @ 110 mls/hr IVPB DAILY [facility] Stop: 06/05/17 15:01 Last Admin: 05/31/17 15:20 Dose: 110 mls/hr Sodium Chloride (Sodium Chloride 0.9%) 1,000 mls @ 75 mls/hr IV .[id number] [facility] Last Admin: 06/01/17 06:50 Dose: 75 mls/hr Oxycodone/Acetaminophen (Percocet 5/325 Mg Tab) 2 tab PO Q4H PRN PRN Reason: Pain, moderate (4-7) Stop: 06/03/17 11:31 Last Admin: 05/31/17 18:47 Dose: 2 tab - Labs Labs: 05/31/17 07:23 05/31/17 07:23 PT 12.0 SECONDS (9.7-12.2) 05/31/17 07:23 INR 1.1 05/31/17 07:23 APTT 30 SECONDS (21-34) 05/31/17 07:23 - Constitutional Appears: No Acute Distress - Eye Exam Eye Exam: Normal appearance - ENT Exam ENT Exam: Mucous Membranes Moist - Neck Exam Neck Exam: Full ROM. absent: Lymphadenopathy, Normal Inspection - Respiratory Exam Respiratory Exam: Clear to Ausculation Bilateral. absent: Rales, Rhonchi, Wheezes - Cardiovascular Exam Cardiovascular Exam: +S1, +S2, Murmur. absent: Gallop, REGULAR RHYTHM - GI/Abdominal Exam GI & Abdominal Exam: Soft. absent: Tenderness, Mass - Extremities Exam Extremities Exam: Calf Tenderness. absent: Joint Swelling, Pedal Edema Assessment and Plan - Assessment and Plan (Free Text) Assessment: ESRD; s/p PD cath placement Cont care.
[2017-06-01] MEDS: Ferric Sodium Gluconat Complex 125 MG in Sodium Chloride 0.9% 100 ML IVPB SCH (10:36)
--- NOTE | 2017-06-01 11:25 | CP.PCM.PN ---
Subjective - Date & Time of Evaluation Date of Evaluation: 06/01/17 Time of Evaluation: 11:24 - Subjective Subjective: seen and examined s/p PD cth placement s/p hd yesterday s/o "sore" abdomen. denies any nasuea vomiting fevers chills. bowel movement yesterday has outpt hd spot Objective - Vital Signs/Intake and Output Vital Signs (last 24 hours): Temp Pulse Resp BP Pulse Ox 98.1 F 94 H 20 137/81 96 06/01/17 08:00 06/01/17 08:00 06/01/17 08:00 06/01/17 08:00 06/01/17 08:00 Intake and Output: 06/01/17 06/01/17 06:59 18:59 Intake Total 700 Balance 700 - Medications Medications: Current Medications Calcium Acetate (Phoslo) 1,334 mg PO TID [facility] Last Admin: 06/01/17 10:37 Dose: 1,334 mg Epoetin Milton (Procrit) 10,000 unit IV MWF [facility] Last Admin: 05/31/17 15:16 Dose: 10,000 unit Hydromorphone HCl (Dilaudid) 1 mg IVP Q4H PRN PRN Reason: Pain, severe (8-10) Ferric Sodium Gluconate Complex 125 mg/ Sodium Chloride 110 mls @ 110 mls/hr IVPB DAILY [facility] Stop: 06/05/17 15:01 Last Admin: 06/01/17 10:36 Dose: 110 mls/hr Oxycodone/Acetaminophen (Percocet 5/325 Mg Tab) 2 tab PO Q4H PRN PRN Reason: Pain, moderate (4-7) Stop: 06/03/17 11:31 Last Admin: 05/31/17 18:47 Dose: 2 tab - Labs Labs: 05/31/17 07:23 05/31/17 07:23 PT 12.0 SECONDS (9.7-12.2) 05/31/17 07:23 INR 1.1 05/31/17 07:23 APTT 30 SECONDS (21-34) 05/31/17 07:23 - Constitutional Appears: Non-toxic, No Acute Distress - Head Exam Head Exam: NORMAL INSPECTION - Eye Exam Eye Exam: Normal appearance Pupil Exam: PERRL - ENT Exam ENT Exam: Mucous Membranes Moist, Normal Exam - Neck Exam Neck Exam: Normal Inspection - Respiratory Exam Respiratory Exam: Clear to Ausculation Bilateral, NORMAL BREATHING PATTERN - Cardiovascular Exam Cardiovascular Exam: REGULAR RHYTHM, RRR - GI/Abdominal Exam GI & Abdominal Exam: Distended, Soft, Normal Bowel Sounds - Extremities Exam Extremities Exam: Normal Inspection (rt chest permcath) Assessment and Plan (1) ESRD (end stage renal disease) on dialysis Status: Acute (2) Type 2 diabetes mellitus with diabetic nephropathy Status: Acute (3) Anemia Status: Chronic (4) HTN (hypertension) Status: Chronic - Assessment and Plan (Free Text) Assessment: maintain hd mwf pd cath care per outpt PD nurse at [facility] stable for dc from renl standpoint
--- NOTE | 2017-06-01 12:31 | CP.PCM.PN ---
Subjective - Date & Time of Evaluation Date of Evaluation: 06/01/17 Time of Evaluation: 12:28 - Subjective Subjective: Surgery PT s&e. Pt undwerwent PD catheter placement yesterday and tolerated it well. Dnies F/C?N/V/D/CP/SOB. Tolerating diet. + amb. Objective - Vital Signs/Intake and Output Vital Signs (last 24 hours): Temp Pulse Resp BP Pulse Ox 98.1 F 94 H 20 137/81 96 06/01/17 08:00 06/01/17 08:00 06/01/17 08:00 06/01/17 08:00 06/01/17 08:00 Intake and Output: 06/01/17 06/01/17 06:59 18:59 Intake Total 700 Balance 700 - Medications Medications: Current Medications Calcium Acetate (Phoslo) 1,334 mg PO TID [facility] Last Admin: 06/01/17 10:37 Dose: 1,334 mg Epoetin Milton (Procrit) 10,000 unit IV MWF [facility] Last Admin: 05/31/17 15:16 Dose: 10,000 unit Hydromorphone HCl (Dilaudid) 1 mg IVP Q4H PRN PRN Reason: Pain, severe (8-10) Ferric Sodium Gluconate Complex 125 mg/ Sodium Chloride 110 mls @ 110 mls/hr IVPB DAILY [facility] Stop: 06/05/17 15:01 Last Admin: 06/01/17 10:36 Dose: 110 mls/hr Oxycodone/Acetaminophen (Percocet 5/325 Mg Tab) 2 tab PO Q4H PRN PRN Reason: Pain, moderate (4-7) Stop: 06/03/17 11:31 Last Admin: 05/31/17 18:47 Dose: 2 tab - Labs Labs: 05/31/17 07:23 05/31/17 07:23 PT 12.0 SECONDS (9.7-12.2) 05/31/17 07:23 INR 1.1 05/31/17 07:23 APTT 30 SECONDS (21-34) 05/31/17 07:23 - Constitutional Appears: No Acute Distress - Head Exam Head Exam: ATRAUMATIC, NORMAL INSPECTION, NORMOCEPHALIC - Eye Exam Eye Exam: EOMI, Normal appearance, PERRL Pupil Exam: NORMAL ACCOMODATION, PERRL - ENT Exam ENT Exam: Mucous Membranes Moist, Normal Exam - Neck Exam Neck Exam: Full ROM, Normal Inspection. absent: Lymphadenopathy - Respiratory Exam Respiratory Exam: Clear to Ausculation Bilateral, NORMAL BREATHING PATTERN - Cardiovascular Exam Cardiovascular Exam: REGULAR RHYTHM, +S1, +S2. absent: Murmur - GI/Abdominal Exam GI & Abdominal Exam: Soft, Normal Bowel Sounds. absent: Distended, Firm, Guarding, Rigid, Tenderness Additional comments: catheter dressing C/D/I. - Rectal Exam Rectal Exam: NORMAL INSPECTION - Extremities Exam Extremities Exam: Full ROM, Normal Capillary Refill, Normal Inspection. absent : Joint Swelling, Pedal Edema - Back Exam Back Exam: NORMAL INSPECTION - Neurological Exam Neurological Exam: Alert, Awake, CN II-XII Intact, Normal Gait, Oriented x3 - Psychiatric Exam Psychiatric exam: Normal Affect, Normal Mood - Skin Skin Exam: Dry, Intact, Normal Color, Warm Assessment and Plan - Assessment and Plan (Free Text) Assessment: POD 1 s/p Peritoneal dialysis catheter placement -Ok to use permacath for HD -Ok to use PD catheter in 1 month -Ok to DC for surgical standpoint -F/u w Nephro f/u at Dr. Hall's office in 1 -[address] Hall
--- NOTE | 2017-06-02 08:48 | CP.PCM.PN ---
Subjective - Date & Time of Evaluation Date of Evaluation: 06/02/17 Time of Evaluation: 08:31 - Subjective Subjective: Pt no complain exc pain on site. No CP, no SOB, no edema, no cough, no diarrhea, no n/v Objective - Vital Signs/Intake and Output Vital Signs (last 24 hours): Temp Pulse Resp BP Pulse Ox 98.8 F 84 18 138/83 96 06/02/17 00:25 06/02/17 00:25 06/02/17 00:25 06/02/17 00:25 06/02/17 00:25 Intake and Output: 06/02/17 06/02/17 06:59 18:59 Intake Total 100 Balance 100 - Medications Medications: Current Medications Calcium Acetate (Phoslo) 1,334 mg PO TID [facility] Last Admin: 06/01/17 17:31 Dose: 1,334 mg Epoetin Milton (Procrit) 10,000 unit IV MWF [facility] Last Admin: 05/31/17 15:16 Dose: 10,000 unit Hydromorphone HCl (Dilaudid) 1 mg IVP Q4H PRN PRN Reason: Pain, severe (8-10) Ferric Sodium Gluconate Complex 125 mg/ Sodium Chloride 110 mls @ 110 mls/hr IVPB DAILY [facility] Stop: 06/05/17 15:01 Last Admin: 06/01/17 10:36 Dose: 110 mls/hr Oxycodone/Acetaminophen (Percocet 5/325 Mg Tab) 2 tab PO Q4H PRN PRN Reason: Pain, moderate (4-7) Stop: 06/03/17 11:31 Last Admin: 05/31/17 18:47 Dose: 2 tab - Labs Labs: 05/31/17 07:23 05/31/17 07:23 PT 12.0 SECONDS (9.7-12.2) 05/31/17 07:23 INR 1.1 05/31/17 07:23 APTT 30 SECONDS (21-34) 05/31/17 07:23 - Constitutional Appears: No Acute Distress - ENT Exam ENT Exam: Mucous Membranes Moist - Neck Exam Neck Exam: Full ROM. absent: Lymphadenopathy, Thyromegaly - Respiratory Exam Respiratory Exam: Clear to Ausculation Bilateral. absent: Rales, Rhonchi, Wheezes - Cardiovascular Exam Cardiovascular Exam: +S1, +S2, Murmur. absent: Gallop, REGULAR RHYTHM, JVD - GI/Abdominal Exam GI & Abdominal Exam: Soft. absent: Tenderness, Mass - Extremities Exam Extremities Exam: Full ROM, Normal Capillary Refill. absent: Joint Swelling, Pedal Edema Assessment and Plan - Assessment and Plan (Free Text) Assessment: ESRD; s/p PD cath For discharge Cont meds
[2017-06-02 09:38] VITALS: RESP 18
[2017-06-02] MEDS: Epoetin Alfa 10,000 unit/ml Dialysis IV SCH (11:08)
[2017-06-02] MEDS: Ferric Sodium Gluconat Complex 125 MG in Sodium Chloride 0.9% 100 ML IVPB SCH (11:25)
[2017-06-02 12:44] VITALS: BP 131/86; PULSE 89; TEMP 98.3; O2SAT 100
--- NOTE | 2017-06-02 14:42 | CP.PCM.PN ---
Subjective - Date & Time of Evaluation Date of Evaluation: 06/02/17 Time of Evaluation: 14:39 - Subjective Subjective: s/p dialysis now- tolerated well s/p PD cath insertion Doing well now Objective - Vital Signs/Intake and Output Vital Signs (last 24 hours): Temp Pulse Resp BP Pulse Ox 98.3 F 89 18 131/86 100 06/02/17 12:05 06/02/17 12:05 06/02/17 12:05 06/02/17 12:05 06/02/17 12:05 Intake and Output: 06/02/17 06/02/17 06:59 18:59 Intake Total 100 Balance 100 - Labs Labs: 05/31/17 07:23 05/31/17 07:23 PT 12.0 SECONDS (9.7-12.2) 05/31/17 07:23 INR 1.1 05/31/17 07:23 APTT 30 SECONDS (21-34) 05/31/17 07:23 - Constitutional Appears: No Acute Distress, Chronically Ill - Head Exam Head Exam: ATRAUMATIC, NORMAL INSPECTION - Eye Exam Eye Exam: EOMI, Normal appearance - Neck Exam Neck Exam: Normal Inspection. absent: Tenderness - Respiratory Exam Respiratory Exam: Clear to Ausculation Bilateral, NORMAL BREATHING PATTERN - Cardiovascular Exam Cardiovascular Exam: REGULAR RHYTHM, +S1 - GI/Abdominal Exam GI & Abdominal Exam: Soft, Tenderness - Extremities Exam Extremities Exam: Normal Inspection. absent: Tenderness - Neurological Exam Neurological Exam: Alert, CN II-XII Intact - Skin Skin Exam: Dry, Warm Assessment and Plan (1) IgA nephropathy Status: Acute (2) Hypertensive chronic kidney disease with stage 5 chronic kidney disease or end stage renal disease Status: Acute (3) Type 2 diabetes mellitus with diabetic nephropathy Status: Acute (4) Hypocalcemia Status: Acute - Assessment and Plan (Free Text) Plan: Discharge today Will follow up PD as outpt; will be on hemodialysis initially
== END 2017-06-02 14:35 | disposition home or self-care (01) | DRG 673 ==
LOC: C.ER 09:51 → C.9E 11:23 → C.6T 14:53
PROVIDERS: ADMIT Internal Medicine; ATTEND Internal Medicine
PROC: 02HV33Z Insertion of Infusion Device into Superior Vena Cava, Percutaneous Approach (ICD-10-PCS; principal; 2017-05-27 12:45)
PROC: 5A1D70Z Performance of Urinary Filtration, Intermittent, Less than 6 Hours Per Day (ICD-10-PCS; 2017-05-28)
PROC: 0WHG43Z Insertion of Infusion Device into Peritoneal Cavity, Percutaneous Endoscopic Approach (ICD-10-PCS; 2017-05-31)
DX: I12.0 Hypertensive chronic kidney disease with stage 5 chronic kidney disease or end stage renal disease (principal); N18.6 End stage renal disease; E11.22 Type 2 diabetes mellitus with diabetic chronic kidney disease; Z99.2 Dependence on renal dialysis; D64.9 Anemia, unspecified; E83.51 Hypocalcemia

== ENCOUNTER 2017-07-27 05:38 | Emergency (ER) | payer OTHER ==
[2017-07-27 05:38] VITALS: BMI 31.2
--- NOTE | 2017-07-27 06:12 | C.PDOC ---
Addendum entered and electronically signed by Annelise Dykes PA-C 07/27/17 07 :56: Addendum Addendum: 07/27/17 07:54 Patient received as sign out pending urine results and Flu test. The results showed negative flu and urine had WBCs and LE. On re-eval, patient fever is reduced to 100F and she is feeling well in no distress, abdomen remains soft. will treat for UTI with Cipro. Discussed results with patient and she feels comfortable going home. Rx given. Patient given instructions to follow up with Dr Carrera. Original Note: History Of Present Illness 46 year old female with PMHx of ESRD on daily peritoneal dialysis presents to the ED c/o chills this morning she measured her temperature at home which was 100.5. Patient is concerned PD catheter might be infected, patient did not take any antipyretics MOUNTER CLARINETS. Patient denies cough, SOB, abdominal pain, UTI symptoms, recent travel or sick contact. Time Seen by Provider: 07/27/17 05:52 Chief Complaint (Nursing): Fever History Per: Patient History/Exam Limitations: no limitations Onset/Duration Of Symptoms: Hrs Current Symptoms Are (Timing): Gone Location Of Pain: None Sick Contacts (Context): None Associated Symptoms: Fever Recent travel outside of the [place]: No Additional History Per: Patient Past Medical History Reviewed: Historical Data, Nursing Documentation, Vital Signs Vital Signs: Last Vital Signs Temp 101.5 F H 07/27/17 07:03 Pulse 98 H 07/27/17 06:56 Resp 18 07/27/17 06:56 BP 123/78 07/27/17 06:56 Pulse Ox 99 07/27/17 07:03 - Medical History PMH: HTN, End Stage Renal Disease Denies: Chronic Kidney Disease Surgical History: No Surg Hx - [facility] Procedures (05/27/17) INSERT OF INFUSION DEV INTO PERITON CAV, PERC ENDO APPROACH (05/27/17) INSERTION OF INFUSION DEV INTO SUP VENA CAVA, PERC APPROACH (05/27/17) Family History: States: Unknown Family Hx - Social History Hx Alcohol Use: No Hx Substance Use: No - Immunization History Hx Tetanus Toxoid Vaccination: No Hx Influenza Vaccination: No Hx Pneumococcal Vaccination: No Review Of Systems Constitutional: Positive for: Fever, Chills Cardiovascular: Negative for: Chest Pain, Palpitations Respiratory: Negative for: Cough, Shortness of Breath Gastrointestinal: Negative for: Nausea, Vomiting, Abdominal Pain Skin: Negative for: Rash Neurological: Negative for: Weakness, Numbness Physical Exam - Physical Exam Appears: Non-toxic, No Acute Distress Skin: Normal Color, Warm, Dry Head: Atraumatic, Normacephalic Eye(s): bilateral: Normal Inspection Nose: No Discharge Oral Mucosa: Moist Neck: Normal ROM, Supple Chest: Symmetrical Cardiovascular: Rhythm Regular, No Murmur Respiratory: Normal Breath Sounds, No Rales, No Rhonchi, No Wheezing Gastrointestinal/Abdominal: Soft, No Tenderness, No Guarding, No Rebound, Other (PD catheter in place, no erythema, induration or tenderness to the area) Extremity: Normal ROM, No Tenderness, No Swelling Neurological/Psych: Oriented x3 Gait: Steady ED Course And Treatment - Laboratory Results Result Diagrams: 07/27/17 06:23 07/27/17 06:23 O2 Sat by Pulse Oximetry: 99 (On RA) Pulse Ox Interpretation: Normal Progress Note: Plan: - Labs. - UA. Pt s/o to LEONCIO Dykes pending UA and flu swab. 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 - Scribe Statement The provider has reviewed the documentation as recorded by the Scribe Rashawn Cowan All medical record entries made by the Scribe were at my direction and personally dictated by me. I have reviewed the chart and agree that the record accurately reflects my personal performance of the history, physical exam, medical decision making, and the department course for this patient. I have also personally directed, reviewed, and agree with the discharge instructions and disposition. Physician Patient Turnover Patient Signed Over To: Annelise Dykes Handoff Comments: pending UA and flu swab
[2017-07-27 06:27] LABS: BASO % 0.1 % (0.0-2.0); EOS # 0.2 K/uL (0.0-0.7); HEMOGLOBIN 10.4 g/dL (11.0-16.0); LYMPH % 9.7 % (20.0-40.0); MEAN CELL VOLUME 97.1 fL (81.0-99.0); MEAN CORPUSCULAR HEMOGLOBIN 32.6 pg (27.0-31.0); MEAN CORPUSCULAR HGB CONC 33.5 g/dL (33.0-37.0); MEAN PLATELET VOLUME 7.6 fL (7.2-11.7); MONO # 0.7 K/uL (0.0-0.8); MONO % 6.9 % (0.0-10.0); NEUT # 8.6 K/uL (1.8-7.0); NEUT % 81.3 % (50.0-75.0); PLATELET COUNT 274 K/uL (130-400); RED CELL DISTRIBUTION WIDTH 14.3 % (11.5-14.5); WHITE BLOOD COUNT 10.6 K/uL (4.8-10.8)
[2017-07-27 06:38] LABS: CALCIUM 9.1 mg/dl (8.6-10.4)
[2017-07-27 07:00] VITALS: RESP 18
[2017-07-27 07:18] LABS: URINE COLOR YELLOW (YELLOW)
[2017-07-27 07:19] LABS: URINE BILIRUBIN NEGATIVE (NEGATIVE); URINE BLOOD NEGATIVE (NEGATIVE); URINE CLARITY HAZY (Clear); URINE GLUCOSE (UA) 2+ mg/dL (Normal)
[2017-07-27 07:20] LABS: URINE PROTEIN 2+ mg/dL (NEGATIVE); URINE UROBILINOGEN NORMAL mg/dL (0.2-1.0)
[2017-07-27 07:21] LABS: URINE BACTERIA RARE (<OCC)
[2017-07-27 07:22] LABS: SQUAMOUS EPITHIAL 2 /hpf (0-5); URINE LEUKOCYTE ESTERASE 2+ Leu/uL (Negative)
[2017-07-27 07:34] LABS: EOSINOPHIL 2 % (0-4); LYMPHOCYTE 9 % (20-40); MONOCYTE 6 % (0-10); NEUTROPHIL 83 % (50-75); PLATELET ESTIMATE NORMAL (NORMAL); TOTAL CELLS COUNTED 100
[2017-07-27 07:35] LABS: OVALOCYTES SLIGHT
[2017-07-27 07:56] VITALS: BP 115/75; PULSE 100; TEMP 100.3; O2SAT 96
== END 2017-07-27 08:06 | disposition home or self-care (01) ==
LOC: C.ER 05:38
DX: R50.9 Fever, unspecified (principal); I12.0 Hypertensive chronic kidney disease with stage 5 chronic kidney disease or end stage renal disease; N18.6 End stage renal disease; Z99.2 Dependence on renal dialysis

== ENCOUNTER 2018-04-04 15:36 | Inpatient (IN) | payer OTHER ==
[2018-04-04 15:37] VITALS: BMI 31.2
--- NOTE | 2018-04-04 18:44 | C.PDOC ---
History Of Present Illness 47 years old female sent to ED by Dr. Granados for an Ultrasound for evaluation of PD catheter. Patient reports 2000cc's in today but only 400 out. Patient also reports low drainage for the past 2-3 days but worsened today. Patient reports mild distention as well. Denies fever, chills, nausea, vomiting, diarrhea, pain, or any other complaints. PMD: * Florentino Matt. Coil Winding Supervisor: * Cheikh Arredondo Time Seen by Provider: 04/04/18 17:38 Chief Complaint (Nursing): Medical Clearance History Per: Patient History/Exam Limitations: no limitations Onset/Duration Of Symptoms: Hrs Current Symptoms Are (Timing): Still Present Recent travel outside of the [place]: No Past Medical History Reviewed: Historical Data, Nursing Documentation, Vital Signs Vital Signs: Last Vital Signs Temp 98.7 F 04/04/18 16:22 Pulse 107 H 04/04/18 16:22 Resp 18 04/04/18 16:22 BP 149/94 H 04/04/18 16:22 Pulse Ox 99 04/04/18 16:22 - Medical History PMH: HTN, End Stage Renal Disease Denies: Chronic Kidney Disease - [facility] Procedures (05/27/17) INSERT OF INFUSION DEV INTO PERITON CAV, PERC ENDO APPROACH (05/27/17) INSERTION OF INFUSION DEV INTO SUP VENA CAVA, PERC APPROACH (05/27/17) Family History: States: Unknown Family Hx - Social History Hx Alcohol Use: No Hx Substance Use: No - Immunization History Hx Tetanus Toxoid Vaccination: No Hx Influenza Vaccination: Yes Hx Pneumococcal Vaccination: No Review Of Systems Constitutional: Negative for: Fever, Chills Gastrointestinal: Positive for: Other (Abdominal distention ). Negative for: Nausea, Vomiting, Abdominal Pain, Diarrhea Skin: Negative for: Rash Neurological: Negative for: Weakness, Numbness Physical Exam - Physical Exam Appears: Non-toxic, No Acute Distress Skin: Normal Color, Warm, Dry, No Rash Head: Atraumatic, Normacephalic Eye(s): bilateral: Normal Inspection, PERRL, EOMI Oral Mucosa: Moist Neck: Normal ROM, Supple Chest: Symmetrical, No Tenderness Cardiovascular: Rhythm Regular, No Murmur Respiratory: Normal Breath Sounds, No Decreased Breath Sounds, No Rales, No Rhonchi, No Wheezing Gastrointestinal/Abdominal: Bowel Sounds (Decreased), Soft, No Tenderness, Distention, No Guarding, No Rebound Extremity: Normal ROM Extremity: Bilateral: Atraumatic, Normal Color And Temperature, Normal ROM Pulses: Left Radial: Normal, Right Radial: Normal Neurological/Psych: Oriented x3, Normal Speech Gait: Steady ED Course And Treatment - Laboratory Results Result Diagrams: 04/04/18 23:32 04/04/18 23:32 O2 Sat by Pulse Oximetry: 99 (RA) Pulse Ox Interpretation: Normal - CT Scan/US US abdomen Other Rad Studies (CT/US): Read By Radiologist, Radiology Report Reviewed CT/US Interpretation: Clinical statement: dialysis malfunction. Findings: The liver demonstrates increased echotexture and echogenicity, with no mass lesions. The gallbladder is contracted but otherwise unremarkable. The common bile duct measures 6 mm and is within normal limits. The pancreas demonstrates normal cont our and appearance. The spleen is unremarkable. The right kidney measures 7.1 cm in length and the left kidney measures 7.0 cm in length. There are several simple left renal cysts measuring up to 1.7 cm in diameter. There is no evidence of hydronephrosis or nephrolithiasis. The visualized portions of the aorta and inferior vena cava are within normal limits. There is a small amount of abdominal ascites. Small bilateral pleural effusions are noted. Impression: 1. Fatty infiltration of the liver. 2. No evidence of hydronephrosis or nephrolithiasis. Simple left renal cysts. 3. Small amount of abdominal ascites. 4. Small bilateral pleural effusions. . Electronically signed on Apr 04, 2018 10:30:39 PM EST by: Johnny Brody M.D., Certified by ABR. CT abd/pelvis Other Rad Studies (CT/US): Read By Radiologist, Radiology Report Reviewed CT/US Interpretation: CT SCAN OF THE ABDOMEN AND PELVIS WITHOUT ORAL OR IV CONTRAST. CLINICAL INDICATION: Ascites. Problems with the peritoneal dialysis catheter. TECHNIQUE: Axial and reformatted sagittal and coronal images of the abdomen pelvis obtained without IV contrast administration. COMPARISON: None. FINDINGS: Mild bilateral pleural effusions. Passive atelectatic airspace di sease of the lower lobes. Mild cardiomegaly. Peritoneal dialysis catheter is noted. Moderate amount of peritoneal free fluid is seen. Mild diffuse peritoneal thickening and fat stranding. This can be secondary/reactive to the presence of peritoneal fluid. No loculated fluid collection is noted. Normal unenhanced liver. Normal gallbladder and extrahepatic biliary system. Normal unenhanced spleen. Normal pancreas. . Normal bilateral adrenal glands. Moderate chronic atrophy of the right kidney. There is no right renal mass. There are no right renal calculi. There is no right hydronephrosis. Normal visualized right ureter. Moderate chronic atrophy of the left kidney. There is no left renal mass. There are no left renal calculi. There is no left hydronephrosis. Normal visualized left ureter. Normal visualized stomach. Normal small intestine. Uncomplicated diverticulosis of the colon. The appendix is visualized and appears normal. Normal abdominal aorta. Normal inferior vena cava. Normal retroperitoneum. . Normal urinary bladder. There is no pelvic mass lesion or lymphadenopathy. Normal abdominal wall. Moderate diffuse spondylosis. IMPRESSION: Mild bilateral pleural effusions. Passive atelectatic airspace disease of the lower lobes. Mild cardiomegaly. Peritoneal dialysis catheter is noted. Moderate amount of peritoneal free fluid is seen. Mild diffuse peritoneal thickening and fat stranding. This can be secondary/reactive to the presence of peritoneal fluid. No loculated fluid collection is noted. . Electronically signed on Apr 05, 2018 1:03:46 AM EST by: Theresa Madsen M.D., Certified by ABR, MSK, Neuroradiology. Medical Decision Making Medical Decision Making: Plan: * Labs * CT abd/pelvis * US abdomen 23:00 - discussed patient with Dr. Carrera who will admit the patient under his service. Disposition Counseled Patient/Family Regarding: Studies Performed, Diagnosis - Disposition Disposition: HOSPITALIZED Disposition Time: 23:00 Condition: STABLE - POA Present On Arrival: None - Clinical Impression Clinical Impression: Renal failure, Peritoneal dialysis catheter dysfunction - Scribe Statement The provider has reviewed the documentation as recorded by the Geenaibkory Tan All medical record entries made by the Geenaibkory were at my direction and personally dictated by me. I have reviewed the chart and agree that the record accurately reflects my personal performance of the history, physical exam, medical decision making, and the department course for this patient. I have also personally directed, reviewed, and agree with the discharge instructions and disposition.
[2018-04-04 23:35] LABS: BASO % 0.4 % (0.0-2.0); EOS # 0.4 K/uL (0.0-0.7); EOS % 9.1 % (0.0-4.0); HEMOGLOBIN 8.6 g/dL (11.0-16.0); LYMPH # 0.5 K/uL (1.0-4.3); LYMPH % 11.9 % (20.0-40.0); MEAN CORPUSCULAR HEMOGLOBIN 31.3 pg (27.0-31.0); MEAN CORPUSCULAR HGB CONC 32.9 g/dL (33.0-37.0); MEAN PLATELET VOLUME 7.6 fL (7.2-11.7); MONO # 0.4 K/uL (0.0-0.8); MONO % 9.5 % (0.0-10.0); NEUT # 2.7 K/uL (1.8-7.0); NEUT % 69.1 % (50.0-75.0); RBC 2.74 Mil/uL (3.80-5.20); RED CELL DISTRIBUTION WIDTH 14.5 % (11.5-14.5)
[2018-04-04 23:39] LABS: MEAN CELL VOLUME 95.1 fL (81.0-99.0); WHITE BLOOD COUNT 3.9 K/uL (4.8-10.8)
[2018-04-04 23:47] LABS: ALB/GLOB RATIO 0.8 (1.0-2.1); ALBUMIN 2.5 g/dL (3.5-5.0); CALCIUM 7.4 mg/dl (8.6-10.4)
--- NOTE | 2018-04-05 08:56 | CP.PCM.HP ---
History of Present Illness - History of Present Illness History of Present Illness: CC: Dialysis Cath 47 y/o with HTN & ESRD. Patient had recent change of peritoneal cath. Yesterday she place 2000 ml a but only got 400 ml. She was sent to ER c/o Nephrology service. Present on Admission - Present on Admission Any Indicators Present on Admission: Yes History of DVT/PE: No History of Uncontrolled Diabetes: No Urinary Catheter: No Decubitus Ulcer Present: No Review of Systems - Constitutional Constitutional: Fatigue, Malaise. absent: Fever, Headache, Night Sweats - EENT Eyes: absent: Change in Vision, Diplopia, Irritation, Loss of Peripheral Vision, Pain Nose/Mouth/Throat: absent: Epistaxis, Nasal Congestion, Bleeding Gums, Change in Voice, Dysphagia - Cardiovascular Cardiovascular: absent: Chest Pain, Diaphoresis, Edema, Irregular Heart Rhythm, Leg Edema, Orthopnea, Rapid Heart Rate, Slow Heart Rate - Respiratory Respiratory: absent: Cough, Dyspnea on Exertion, Pain on Inspiration, Chest Congestion, Excessive Mucous Production - Gastrointestinal Gastrointestinal: Bloating. absent: Abdominal Pain, Cramping, Diarrhea, Dyspepsia - Genitourinary Genitourinary: absent: Change in Urinary Stream - Musculoskeletal Musculoskeletal: absent: Abnormal Gait, Atrophy, Back Pain, Loss of Height, Muscle Weakness, Numbness - Integumentary Integumentary: absent: Bleeding Lesions, Dry Skin, Erythema, Pruritus, Rash, Skin Ulcer - Neurological Neurological: absent: Abnormal Gait, Burning Sensations, Disequilibrium, Dizziness, Focal Weakness, Lack of Coordination Past Patient History - Infectious Disease Hx of Infectious Diseases: None - Tetanus Immunizations Tetanus Immunization: Unknown - Past Medical History & Family History Past Medical History?: Yes - Past Social History Smoking Status: Never Smoked - CARDIAC Hx Hypertension: Yes - PULMONARY Hx Respiratory Disorders: No - NEUROLOGICAL Hx Neurological Disorder: No - HEENT Hx HEENT Problems: No - RENAL Hx Chronic Kidney Disease: No - ENDOCRINE/METABOLIC Hx Endocrine Disorders: No - HEMATOLOGICAL/ONCOLOGICAL Hx Blood Transfusions: No - INTEGUMENTARY Hx Dermatological Problems: No - MUSCULOSKELETAL/RHEUMATOLOGICAL Hx Falls: No - GASTROINTESTINAL Hx Gastrointestinal Disorders: No - GENITOURINARY/GYNECOLOGICAL Hx Genitourinary Disorders: No - PSYCHIATRIC Hx Substance Use: No - SURGICAL HISTORY Hx Surgeries: No - ANESTHESIA Hx Anesthesia: No Meds Allergies/Adverse Reactions: Allergies Allergy/AdvReac Type Severity Reaction Status Date / Time No Known Allergies Allergy Verified 04/04/18 18:33 Physical Exam - Constitutional Appears: Well - Eye Exam Eye Exam: Normal appearance - ENT Exam ENT Exam: Mucous Membranes Moist - Neck Exam Neck exam: Positive for: Full Rom. Negative for: Lymphadenopathy, Normal Inspection - Respiratory Exam Respiratory Exam: Clear to Auscultation Bilateral. absent: Rales, Rhonchi, Wheezes - Cardiovascular Exam Cardiovascular Exam: REGULAR RHYTHM, +S1, +S2. absent: Gallop, JVD, Systolic Murmur - GI/Abdominal Exam GI & Abdominal Exam: Soft. absent: Guarding, Rebound ((+) no redness on peritoneal catheter site), Tenderness - Extremities Exam Extremities exam: Positive for: full ROM, normal capillary refill. Negative for: calf tenderness, joint swelling Results - Vital Signs Recent Vital Signs: Last Vital Signs Temp 99.9 F H 04/05/18 07:22 Pulse 86 04/05/18 07:22 Resp 18 04/05/18 07:22 BP 144/79 04/05/18 07:22 Pulse Ox 93 L 04/05/18 07:22 - Labs Result Diagrams: 04/04/18 23:32 04/04/18 23:32 Labs: Laboratory Results - last 24 hr 04/04/18 04/04/18 23:32 23:32 WBC 3.9 L D RBC 2.74 L Hgb 8.6 L Hct 26.0 L MCV 95.1 D MCH 31.3 H MCHC 32.9 L RDW 14.5 Plt Count 249 MPV 7.6 Neut % (Auto) 69.1 Lymph % (Auto) 11.9 L [place] % (Auto) 9.5 Eos % (Auto) 9.1 H Baso % (Auto) 0.4 Neut # (Auto) 2.7 Lymph # (Auto) 0.5 L [place] # (Auto) 0.4 Eos # (Auto) 0.4 Baso # (Auto) 0.0 Sodium 135 Potassium 4.5 Chloride 102 Carbon Dioxide 21 L Anion Gap 18 BUN 70 H Creatinine 11.6 H* D Est GFR ( Amer) 4 Est GFR (Non-Af Amer) 3 Random Glucose 86 Calcium 7.4 L Total Bilirubin 0.4 AST 17 ALT 17 Alkaline Phosphatase 51 Total Protein 5.6 L Albumin 2.5 L D Globulin 3.1 Albumin/Globulin Ratio 0.8 L Lipase 266 Assessment & Plan - Assessment and Plan (Free Text) Assessment: Dysfunction PD catheter; ESRD HTN; Fever Surgical re-eval for reinsertion Cont supportive care For culture of peritoneal fluid
--- NOTE | 2018-04-05 09:57 | CP.PCM.CON ---
History of Present Illness - History of Present Illness History of Present Illness: 47 yo lady w/ hx of htn esrd on pd presents for poor drainage from pd catheter during regular pd at home x 1 week. denies any fevers chills abd pain, n/v at home. c/o loose stool this am clear pd fluid per pt, yellowish in color. 2L instilled, only 400 cc came out. hasnt noticed any fibrin strands in fluid also c/o leg swelling and bloating around stomach PMHx: htn esrd anemia PSx: PD cath placement 05/27 family hx: non contributary soc hx: no toxic habits ROS : 10 point ros was obtained and pertinent positives and negatives are as per hpi. rest neg all: nkda Past Patient History - Infectious Disease Hx of Infectious Diseases: None - Tetanus Immunizations Tetanus Immunization: Unknown - Past Medical History & Family History Past Medical History?: Yes - Past Social History Smoking Status: Never Smoked - CARDIAC Hx Hypertension: Yes - PULMONARY Hx Respiratory Disorders: No - NEUROLOGICAL Hx Neurological Disorder: No - HEENT Hx HEENT Problems: No - RENAL Hx Chronic Kidney Disease: No - ENDOCRINE/METABOLIC Hx Endocrine Disorders: No - HEMATOLOGICAL/ONCOLOGICAL Hx Blood Transfusions: No - INTEGUMENTARY Hx Dermatological Problems: No - MUSCULOSKELETAL/RHEUMATOLOGICAL Hx Falls: No - GASTROINTESTINAL Hx Gastrointestinal Disorders: No - GENITOURINARY/GYNECOLOGICAL Hx Genitourinary Disorders: No - PSYCHIATRIC Hx Substance Use: No - SURGICAL HISTORY Hx Surgeries: No - ANESTHESIA Hx Anesthesia: No Meds Allergies/Adverse Reactions: Allergies Allergy/AdvReac Type Severity Reaction Status Date / Time No Known Allergies Allergy Verified 04/04/18 18:33 - Medications Medications: Current Medications Amlodipine Besylate (Norvasc) 5 mg PO DAILY CHARITY Physical Exam - Constitutional Appears: Non-toxic, No Acute Distress - Head Exam Head Exam: NORMAL INSPECTION, NORMOCEPHALIC - Eye Exam Eye Exam: Normal appearance, PERRL - ENT Exam ENT Exam: Mucous Membranes Moist, Normal Exam - Neck Exam Neck exam: Positive for: Full Rom, Normal Inspection - Respiratory Exam Respiratory Exam: Clear to Auscultation Bilateral, NORMAL BREATHING PATTERN - Cardiovascular Exam Cardiovascular Exam: REGULAR RHYTHM, RRR - GI/Abdominal Exam GI & Abdominal Exam: Distended, Soft - Extremities Exam Extremities exam: Positive for: full ROM, normal inspection - Neurological Exam Neurological exam: Alert, Oriented x3 - Psychiatric Exam Psychiatric exam: Normal Affect, Normal Mood - Skin Skin Exam: Dry, Intact, Normal Color, Warm Results - Vital Signs Recent Vital Signs: Last Vital Signs Temp 99.9 F H 04/05/18 07:22 Pulse 86 04/05/18 07:22 Resp 18 04/05/18 07:22 BP 144/79 04/05/18 07:22 Pulse Ox 93 L 04/05/18 07:22 - Labs Result Diagrams: 04/04/18 23:32 04/04/18 23:32 Labs: Laboratory Results - last 24 hr 04/04/18 04/04/18 23:32 23:32 WBC 3.9 L D RBC 2.74 L Hgb 8.6 L Hct 26.0 L MCV 95.1 D MCH 31.3 H MCHC 32.9 L RDW 14.5 Plt Count 249 MPV 7.6 Neut % (Auto) 69.1 Lymph % (Auto) 11.9 L [place] % (Auto) 9.5 Eos % (Auto) 9.1 H Baso % (Auto) 0.4 Neut # (Auto) 2.7 Lymph # (Auto) 0.5 L [place] # (Auto) 0.4 Eos # (Auto) 0.4 Baso # (Auto) 0.0 Sodium 135 Potassium 4.5 Chloride 102 Carbon Dioxide 21 L Anion Gap 18 BUN 70 H Creatinine 11.6 H* D Est GFR ( Amer) 4 Est GFR (Non-Af Amer) 3 Random Glucose 86 Calcium 7.4 L Total Bilirubin 0.4 AST 17 ALT 17 Alkaline Phosphatase 51 Total Protein 5.6 L Albumin 2.5 L D Globulin 3.1 Albumin/Globulin Ratio 0.8 L Lipase 266 Assessment & Plan (1) Peritoneal dialysis catheter dysfunction Status: Acute (2) ESRD (end stage renal disease) on dialysis Status: Acute (3) Fever Status: Acute (4) Hypertensive chronic kidney disease with stage 5 chronic kidney disease or end stage renal disease Status: Acute - Assessment and Plan (Free Text) Assessment: pd fluid cultures and cell count to be sent blood cultures urine cultures resume pd inpatient f/u ct scan abd : may need pd cath replaced, surgical team made aware permcath and HD interim jamaal ordered, check iron stores
[2018-04-05] MEDS ORDERED: EPOETIN ALFA 10,000 UNIT/ML ML SC ONE (10:01)
--- NOTE | 2018-04-05 10:45 | CT ---
Date of service: 04/05/2018 PROCEDURE: CT Abdomen and Pelvis without intravenous contrast HISTORY: ascites, problem w/PD catheter COMPARISON: Comparison is made with the previous ultrasound of the abdomen dated 04/04/2018 TECHNIQUE: Axial and reformatted coronal and sagittal CT images of the abdomen and pelvis were obtained without IV or oral contrast administration.. Contrast dose: 0 Radiation dose: Total exam DLP = 398.81 mGy-cm. This CT exam was performed using one or more of the following dose reduction techniques: Automated exposure control, adjustment of the mA and/or kV according to patient size, and/or use of iterative reconstruction technique. FINDINGS: LOWER THORAX: There are small bilateral pleural effusions associated with bilateral lower lobe partial atelectasis. The heart is enlarged. No evidence of significant pericardial effusion. LIVER: Heterogeneous attenuation of the liver is noted. Mild irregularity noted at the right liver lobe border. No evidence of discrete mass lesion in this noncontrast study. GALLBLADDER AND BILE DUCTS: No CT evidence of acute cholecystitis or biliary obstruction. PANCREAS: Unremarkable. No gross lesion or ductal dilatation. SPLEEN: Unremarkable. ADRENALS: Unremarkable. No mass. KIDNEYS AND URETERS: The kidneys are small in size suggestive of chronic kidney disease. There are small bilateral low-attenuation cystic lesions in both kidneys. No evidence of hydronephrosis. VASCULATURE: Diffuse vascular calcification noted in the abdomen and pelvis. No evidence of aortic aneurysm. There are foci of calcification noted in the abdominal aorta and iliac arteries. BOWEL: Unremarkable. No obstruction. No gross mural thickening. No CT evidence of the obstructive mass lesion or significant bowel wall thickening. APPENDIX: No CT evidence of appendicitis P PERITONEUM: There is a small to moderate amount of ascites in the abdomen and pelvis. Diffuse soft tissue edema and mesenteric stranding noted in the abdomen and pelvis. There is peritoneal dialysis catheter extending from the left mid abdomen to the pelvis. LYMPH NODES: Mildly enlarged periaortic and mesenteric lymph nodes are noted. BLADDER: Unremarkable. REPRODUCTIVE: The uterus is slightly prominent in size heterogeneous contains punctate calcification. BONES: No acute fracture. OTHER FINDINGS: None. IMPRESSION: Small to moderate amount of ascites associated with diffuse soft tissues edema and mesenteric stranding. Small size kidneys suggestive of chronic kidney disease. Peritoneal dialysis catheter is noted extending to the pelvis. Small bilateral pleural effusions associated with partial atelectasis of the lower lobes. Preliminary report was submitted by [facility] Radiology contains concordant findings.
--- NOTE | 2018-04-05 11:10 | US ---
HISTORY: peritoneal dialysis malfunctioning COMPARISON: CT abdomen and pelvis without contrast performed 04/05/18 TECHNIQUE: Sonographic evaluation of the abdomen. FINDINGS: LIVER: Measures 15.8 cm in sagittal dimension. Echogenic liver may be seen in setting of hepatic parenchymal disease or fatty infiltration. No focal hepatic mass identified. The main portal vein appears patent with normal directional flow. No intrahepatic bile duct dilatation. Abdominal ascites. GALLBLADDER: Contracted gallbladder. No appreciable gallstones given severe limitation. Gallbladder pericholecystic edema/wall thickening measures approximately 5 mm. Negative sonographic Malone's sign as assessed by the research manufacturing operator. COMMON BILE DUCT: Measures 6 mm. PANCREAS: Not well visualized. RIGHT KIDNEY: Measures 7.1 x 2.9 x 3.0 cm. No obstructing calculus or hydronephrosis identified. LEFT KIDNEY: Measures 7.0 x 3.2 x 3.3cm. 1.8 x 1.6 x 1.7 cm and 0.7 x 0.8 x 0.9 cm upper pole cysts. SPLEEN: Measures approximately 9.6 cm. 5 x 5 mm splenic calcification. AORTA: Limited views appear unremarkable. IVC: Limited views appear unremarkable. OTHER FINDINGS: Incidental note is made of small bilateral pleural effusions. IMPRESSION: Echogenic liver may be seen in setting of hepatic parenchymal disease or fatty infiltration. Perihepatic ascites. Left renal cysts. Contracted gallbladder state precludes adequate evaluation. The gallbladder appears thickened. Negative sonographic Malone's sign. Incidental note is made of small bilateral pleural effusions. Preliminary impression was provided by [facility].
--- NOTE | 2018-04-05 12:25 | CP.PCM.CON ---
History of Present Illness - History of Present Illness History of Present Illness: surgery progress note for Dr. Rodriguez Pt is a 47F with PMH of HTN and ESRD on daily peritoneal dialysis catheter. She has had the peritoneal dialysis catheter since May and has been functioning since she started using it in July. Patient came to the ER because the peritoneal dialysis catheter has not been draining appropriately. She is able to flush the catheter but it only drains a portion of the fluid she injects. this has been going on for about a week. Patient denies any nausea, vomiting, abdominal pain, fevers, chills, bleeding, edema, or any other symptoms. PMH: HTN, ESRD PSH: PD catheter, permacath ALL: NKDA Social: denies smoking, ETOH, and no substances Review of Systems - Review of Systems All systems: reviewed and no additional remarkable complaints except (as per HPI) Past Patient History - Infectious Disease Hx of Infectious Diseases: None - Tetanus Immunizations Tetanus Immunization: Unknown - Past Medical History & Family History Past Medical History?: Yes Past Family History: Reviewed and not pertinent - Past Social History Smoking Status: Never Smoked Alcohol: None Drugs: Denies Home Situation {Lives}: With Family - CARDIAC Hx Hypertension: Yes - PULMONARY Hx Respiratory Disorders: No - NEUROLOGICAL Hx Neurological Disorder: No - HEENT Hx HEENT Problems: No - RENAL Hx Chronic Kidney Disease: No - ENDOCRINE/METABOLIC Hx Endocrine Disorders: No - HEMATOLOGICAL/ONCOLOGICAL Hx Blood Transfusions: No - INTEGUMENTARY Hx Dermatological Problems: No - MUSCULOSKELETAL/RHEUMATOLOGICAL Hx Falls: No - GASTROINTESTINAL Hx Gastrointestinal Disorders: No - GENITOURINARY/GYNECOLOGICAL Hx Genitourinary Disorders: No - PSYCHIATRIC Hx Substance Use: No - SURGICAL HISTORY Hx Surgeries: No - ANESTHESIA Hx Anesthesia: No Meds Allergies/Adverse Reactions: Allergies Allergy/AdvReac Type Severity Reaction Status Date / Time No Known Allergies Allergy Verified 04/04/18 18:33 - Medications Medications: Current Medications Amlodipine Besylate (Norvasc) 5 mg PO DAILY [facility] Last Admin: 04/05/18 10:12 Dose: 5 mg Heparin Sodium (Porcine) (Heparin) 5,000 units SC Q12 [facility] Loperamide HCl (Imodium) 2 mg PO PRN PRN PRN Reason: Diarrhea Physical Exam - Constitutional Appears: Well, Non-toxic, No Acute Distress - Head Exam Head Exam: ATRAUMATIC, NORMOCEPHALIC - Eye Exam Eye Exam: Normal appearance. absent: Conjunctival injection, Scleral icterus - ENT Exam ENT Exam: Mucous Membranes Moist, Normal Oropharynx - Respiratory Exam Respiratory Exam: NORMAL BREATHING PATTERN. absent: Accessory Muscle Use, Respiratory Distress - Cardiovascular Exam Cardiovascular Exam: RRR - GI/Abdominal Exam GI & Abdominal Exam: Distended, Soft. absent: Tenderness - Extremities Exam Extremities exam: Positive for: pedal pulses present. Negative for: calf tenderness, pedal edema - Neurological Exam Neurological exam: Alert, Oriented x3 - Psychiatric Exam Psychiatric exam: Normal Affect, Normal Mood - Skin Skin Exam: Dry, Normal Color, Warm Results - Vital Signs Recent Vital Signs: Last Vital Signs Temp 99.9 F H 04/05/18 07:22 Pulse 86 04/05/18 07:22 Resp 18 04/05/18 07:22 BP 144/79 04/05/18 07:22 Pulse Ox 93 L 04/05/18 07:22 - Labs Result Diagrams: 04/04/18 23:32 04/04/18 23:32 Labs: Laboratory Results - last 24 hr 04/04/18 04/04/18 23:32 23:32 WBC 3.9 L D RBC 2.74 L Hgb 8.6 L Hct 26.0 L MCV 95.1 D MCH 31.3 H MCHC 32.9 L RDW 14.5 Plt Count 249 MPV 7.6 Neut % (Auto) 69.1 Lymph % (Auto) 11.9 L Gilchrist % (Auto) 9.5 Eos % (Auto) 9.1 H Baso % (Auto) 0.4 Neut # (Auto) 2.7 Lymph # (Auto) 0.5 L Gilchrist # (Auto) 0.4 Eos # (Auto) 0.4 Baso # (Auto) 0.0 Sodium 135 Potassium 4.5 Chloride 102 Carbon Dioxide 21 L Anion Gap 18 BUN 70 H Creatinine 11.6 H* D Est GFR ( Amer) 4 Est GFR (Non-Af Amer) 3 Random Glucose 86 Calcium 7.4 L Total Bilirubin 0.4 AST 17 ALT 17 Alkaline Phosphatase 51 Total Protein 5.6 L Albumin 2.5 L D Globulin 3.1 Albumin/Globulin Ratio 0.8 L Lipase 266 - Imaging and Cardiology CT scan - abdomen Status: Image reviewed by me, Report reviewed by me Assessment & Plan - Assessment and Plan (Free Text) Assessment: 47F with ESRD on peritoneal dialysis catheter Plan: Plan for OR tomorrow for permacath and possible replacement of the peritoneal dialysis catheter NPO after midnight PRN pain and nausea medication Medical management per primary Discussed with Dr. Jennifer Ramirez, PGY2
--- NOTE | 2018-04-05 13:04 | RAD ---
HISTORY: pre-op evaluation for permacath COMPARISON: Chest x-ray performed 05/27/17 TECHNIQUE: Chest, one view. FINDINGS: Interval removal of right IJ approach central venous catheter. LUNGS: Bibasilar atelectasis/infiltrates. Please note that chest x-ray has limited sensitivity for the detection of pulmonary masses. PLEURA: Small bilateral pleural effusions. No definite pneumothorax . CARDIOVASCULAR: Cardiomegaly. Atherosclerotic calcifications of the aorta. OSSEOUS STRUCTURES: Degenerative changes. VISUALIZED UPPER ABDOMEN: Unremarkable. OTHER FINDINGS: None. IMPRESSION: Small bilateral pleural effusions and associated consolidations/infiltrates. Cardiomegaly. Dense atherosclerotic calcifications of the aorta.
[2018-04-05 13:34] LABS: INR 1.2
[2018-04-06 07:42] LABS: ALB/GLOB RATIO 0.9 (1.0-2.1); ALBUMIN 2.6 g/dL (3.5-5.0); CALCIUM 7.7 mg/dl (8.6-10.4)
[2018-04-06 07:43] LABS: BASO % 0.6 % (0.0-2.0); EOS # 0.2 K/uL (0.0-0.7); EOS % 6.7 % (0.0-4.0); HEMOGLOBIN 7.8 g/dL (11.0-16.0); LYMPH # 0.6 K/uL (1.0-4.3); LYMPH % 18.3 % (20.0-40.0); MEAN CELL VOLUME 96.9 fL (81.0-99.0); MEAN CORPUSCULAR HEMOGLOBIN 31.6 pg (27.0-31.0); MEAN CORPUSCULAR HGB CONC 32.6 g/dL (33.0-37.0); MEAN PLATELET VOLUME 7.8 fL (7.2-11.7); MONO # 0.4 K/uL (0.0-0.8); MONO % 11.4 % (0.0-10.0); NEUT # 2.2 K/uL (1.8-7.0); NRBC % 0.1 % (0.0-2.0); RBC 2.47 Mil/uL (3.80-5.20); RED CELL DISTRIBUTION WIDTH 14.7 % (11.5-14.5)
[2018-04-06 07:49] LABS: WHITE BLOOD COUNT 3.5 K/uL (4.8-10.8)
--- NOTE | 2018-04-06 09:06 | CP.PCM.PN ---
Subjective - Date & Time of Evaluation Date of Evaluation: 04/05/18 Time of Evaluation: 08:40 - Subjective Subjective: Pt o complain; no CP, no SOB, no abd pain. Feels a little feverish Objective - Vital Signs/Intake and Output Vital Signs (last 24 hours): Temp Pulse Resp BP Pulse Ox 98.7 F 82 20 143/79 96 04/06/18 07:48 04/06/18 07:48 04/06/18 07:48 04/06/18 07:48 04/06/18 07:48 - Medications Medications: Current Medications Amlodipine Besylate (Norvasc) 5 mg PO DAILY [facility] Last Admin: 04/05/18 10:12 Dose: 5 mg Heparin Sodium (Porcine) (Heparin) 5,000 units SC Q12 [facility] Last Admin: 04/05/18 22:12 Dose: 5,000 units Loperamide HCl (Imodium) 2 mg PO PRN PRN PRN Reason: Diarrhea - Labs Labs: 04/06/18 07:08 04/06/18 07:20 PT 13.0 SECONDS (9.7-12.2) H 04/05/18 12:30 INR 1.2 04/05/18 12:30 APTT 29 SECONDS (21-34) 04/05/18 12:30 - Constitutional Appears: Well, No Acute Distress - Eye Exam Eye Exam: Normal appearance - ENT Exam ENT Exam: Mucous Membranes Moist - Neck Exam Neck Exam: Full ROM. absent: Lymphadenopathy, Normal Inspection, Tenderness - Respiratory Exam Respiratory Exam: Decreased Breath Sounds. absent: Rales, Rhonchi, Wheezes - Cardiovascular Exam Cardiovascular Exam: REGULAR RHYTHM, +S1, +S2. absent: Gallop, JVD - GI/Abdominal Exam GI & Abdominal Exam: Soft. absent: Guarding, Tenderness, Rebound - Extremities Exam Extremities Exam: Full ROM, Normal Capillary Refill. absent: Calf Tenderness, Joint Swelling Assessment and Plan - Assessment and Plan (Free Text) Assessment: Non Functioning PD cath; ESRD, HTN non sp Diarrhea for cath repalcement today Cont supportive care
[2018-04-06] MEDS ORDERED: ceFAZolin IV 1 gm in Dextrose 1 GM/50 ML BAG IVPB ONE (11:05)
[2018-04-06] MEDS ORDERED: HEPARIN-NS 5,000 UNITS/500 ML 5,000 UNIT/500 ML BAG IV ONE (11:05)
[2018-04-06] MEDS ORDERED: Midazolam 2 MG/2 ML VIAL ONE (11:11)
[2018-04-06] MEDS ORDERED: Propofol 10 mg/ml Inj (20 ML) ONE (11:11)
[2018-04-06] MEDS ORDERED: Phenylephrine 10 mg/ml Inj ONE (11:41)
[2018-04-06] MEDS ORDERED: Succinylcholine Chloride 20 mg/ml Syr (5 ml) IV ONE (11:41)
[2018-04-06] MEDS ORDERED: Lidocaine/Epinephrine 1% 1:100000 10 ML IJ ONE (11:59)
[2018-04-06] MEDS ORDERED: HYDROmorphone 0.5 mg/0.5 ml ISec IVP PRN (12:48)
[2018-04-06] MEDS ORDERED: Oxycodone/Acetaminophen 5/325 mg Tab PO PRN (12:49)
--- NOTE | 2018-04-06 12:52 | PCM.SURG1 ---
Surgeon's Initial Post Op Note - Surgeon's Notes Surgeon: Dr. Rodriguez Dairy Worker: Dr. Hall Type of Anesthesia: General Endo Pre-Operative Diagnosis: ESRD, Failed Permacath Operative Findings: See operative dictation Post-Operative Diagnosis: Same Operation Performed: Right IJ permacath placement, Removal of peritoneal dialysis catheter, Exploratory laparoscopy Specimen/Specimens Removed: Peritoneal dialysis catheter Estimated Blood Loss: EBL {In ML}: 20 Drains Used: No Drains Post-Op Condition: Good Date of Surgery/Procedure: 04/06/18 Time of Surgery/Procedure: 12:53
--- NOTE | 2018-04-06 14:16 | CP.PCM.PN ---
Subjective - Date & Time of Evaluation Date of Evaluation: 04/06/18 Time of Evaluation: 14:13 - Subjective Subjective: Seen in recovery Events noted s/p tenckoff removal due to adhesions- PD failure New permcath placed Awake , weak post surgery Objective - Vital Signs/Intake and Output Vital Signs (last 24 hours): Temp Pulse Resp BP Pulse Ox 98.1 F 85 20 11/63 L 100 04/06/18 12:46 04/06/18 13:45 04/06/18 13:45 04/06/18 13:45 04/06/18 13:45 Intake and Output: 04/06/18 04/06/18 06:59 18:59 Intake Total 450 Balance 450 - Medications Medications: Current Medications Amlodipine Besylate (Norvasc) 5 mg PO DAILY [facility] Last Admin: 04/06/18 09:59 Dose: 5 mg Heparin Sodium (Porcine) (Heparin) 5,000 units SC Q12 [facility] Last Admin: 04/06/18 09:58 Dose: Not Given Hydromorphone HCl (Dilaudid) 0.5 mg IVP Q10M PRN PRN Reason: Pain, moderate (4-7) Stop: 04/06/18 14:48 Last Admin: 04/06/18 13:40 Dose: 0.5 mg Loperamide HCl (Imodium) 2 mg PO PRN PRN PRN Reason: Diarrhea Ondansetron HCl (Zofran Inj) 4 mg IVP ONCE PRN PRN Reason: Nausea/Vomiting Stop: 04/06/18 14:48 Oxycodone/Acetaminophen (Percocet 5/325 Mg Tab) 1 tab PO Q6H PRN PRN Reason: Pain, moderate (4-7) Stop: 04/09/18 12:50 - Labs Labs: 04/06/18 07:08 04/06/18 07:20 PT 13.0 SECONDS (9.7-12.2) H 04/05/18 12:30 INR 1.2 04/05/18 12:30 APTT 29 SECONDS (21-34) 04/05/18 12:30 - Constitutional Appears: No Acute Distress, Chronically Ill - Head Exam Head Exam: ATRAUMATIC, NORMAL INSPECTION - Eye Exam Eye Exam: EOMI, Normal appearance - Neck Exam Neck Exam: Normal Inspection. absent: Tenderness - Respiratory Exam Respiratory Exam: Clear to Ausculation Bilateral, NORMAL BREATHING PATTERN - Cardiovascular Exam Cardiovascular Exam: REGULAR RHYTHM, +S1 - GI/Abdominal Exam GI & Abdominal Exam: Soft. absent: Tenderness - Extremities Exam Extremities Exam: Normal Inspection. absent: Tenderness - Neurological Exam Neurological Exam: Awake, CN II-XII Intact - Skin Skin Exam: Dry, Warm Assessment and Plan (1) Peritoneal dialysis catheter dysfunction Status: Acute (2) ESRD (end stage renal disease) on dialysis Status: Acute (3) IgA nephropathy Status: Acute (4) Type 2 diabetes mellitus with diabetic nephropathy Status: Acute - Assessment and Plan (Free Text) Plan: Dialysis now and MWF EPO Surgical follow up
--- NOTE | 2018-04-06 14:38 | RAD ---
Date of service: 04/06/2018 HISTORY: PermCath placement. COMPARISON: April 05, 2018. FINDINGS: LUNGS: Stable bilateral lower lobe infiltrates. PLEURA: Stable small bilateral pleural effusions. CARDIOVASCULAR: No atherosclerotic calcification present Venous access catheter in satisfactory position. Catheter inserted via right IJ approach. OSSEOUS STRUCTURES: No significant abnormalities. VISUALIZED UPPER ABDOMEN: Normal. OTHER FINDINGS: None. IMPRESSION: Satisfactory position of recently placed PermCath. No pneumothorax identified. Stable basilar infiltrates/atelectasis and associated small pleural effusions.
[2018-04-06] MEDS ORDERED: Epoetin Alfa 10,000 unit/ml Dialysis IV SCH (19:30)
[2018-04-06 20:17] LABS: HEPATITIS B SURFACE AG Negative (NEGATIVE)
[2018-04-06 20:22] LABS: HEPATITIS B CORE AB NEGATIVE (NEGATIVE)
--- NOTE | 2018-04-06 23:36 | CARD ---
APPROVED REPORT Date of service: 04/05/2018 EKG Measurement Heart [id number] <Conclusion> Normal sinus rhythm Low voltage QRS Cannot rule out Anterior infarct, age undetermined Abnormal ECG
--- NOTE | 2018-04-06 23:48 | OP ---
PROCEDURE DATE: 04/06/2018 PREOPERATIVE DIAGNOSES: Renal failure, malfunctioning peritoneal dialysis catheter. PROCEDURE CARRIED OUT: 1. Placement of right jugular Perm-A-Cath. 2. Laparoscopy, lysis of adhesions, removal of old peritoneal dialysis catheter. SURGEON: Jesse Rodriguez Jr., MD CLIENT RELATIONSHIP MANAGER: Mook Hall DO ANESTHESIA: General anesthesia. ANESTHESIA ADMINISTERED BY: Jose Antonio Marie MD INDICATIONS: The patient is a young woman with renal failure, presently on peritoneal dialysis less than a year. OPERATIVE FINDINGS: Initially, we placed a catheter via the jugular vein uneventfully. This was secured into position with good flow and return. After we prepped, draped and finished this part of the procedure, we then went and insufflated air through the existing peritoneal dialysis catheter. This resulted in creation of pneumoperitoneum. We then inserted a 5 trocar in the left upper quadrant. We then saw dense intraabdominal adhesions. We attempted to lyse these adhesions, but these were firmly adherent to the anterior abdominal wall. We were able to successfully remove the old catheter which came out relatively uneventfully in two pieces and was completely removed, but any attempt trying to place a new catheter in the location there simply was not any space in the peritoneal cavity for placement of this at this time. We abandoned the procedural attempts of this, but we had done fairly extensive lysis of adhesions on the right side. DESCRIPTION OF PROCEDURE: The patient was given general anesthesia and intravenous antibiotics. Using ultrasound guidance, the right jugular vein was cannulated. Under fluoroscopic control, the guidewire was advanced centrally. This was exchanged subsequently for an 0.035 wire and a catheter originating on the right chest wall going through the jugular vein and terminating in the superior vena cava was placed. Ultrasound image of the neck showed that the vein was approximately 16 mm in diameter with normal compressibility and no intraluminal thrombosis. We then prepped and draped this area. We then went down to the umbilicus. We insufflated the air to the existing peritoneal dialysis catheter. After this had been done, we then punctured, looked, could not find a suitable area to place a new catheter and eventually we were able to remove the old catheter in two segments. After this had been done, we then closed the wound. Blood loss during the procedure was less than 30 mL. Operation carried out was, 1. Perm-A-Cath to right jugular vein under C-arm fluoroscopy using ultrasound-guided puncture. 2. Removal of old Tenckhoff catheter, laparoscopy and lysis of adhesions. No new catheter was placed. Jesse Rodriguez Jr., MD cc: Cheikh Granados MD; . ASHVIN
[2018-04-07 07:50] LABS: HEMOGLOBIN 8.5 g/dL (11.0-16.0); MEAN CORPUSCULAR HEMOGLOBIN 31.4 pg (27.0-31.0); MEAN CORPUSCULAR HGB CONC 33.2 g/dL (33.0-37.0); MEAN PLATELET VOLUME 7.7 fL (7.2-11.7); RBC 2.71 Mil/uL (3.80-5.20); RED CELL DISTRIBUTION WIDTH 14.2 % (11.5-14.5); WHITE BLOOD COUNT 5.2 K/uL (4.8-10.8)
[2018-04-07 07:57] LABS: MEAN CELL VOLUME 94.6 fL (81.0-99.0)
--- NOTE | 2018-04-07 09:56 | CP.PCM.PN ---
Subjective - Date & Time of Evaluation Date of Evaluation: 04/07/18 Time of Evaluation: 09:50 - Subjective Subjective: Vascular Surgery Progress Notes for Dr. Rodriguez This 47F was seen and examined this Am at bedside. Pt was dialyzed yesterday s/p permacath insertion. She complains of abdominal pain. However denies nausea and vomiting. Denies any chest pain or SOB. Objective - Vital Signs/Intake and Output Vital Signs (last 24 hours): Temp Pulse Resp BP Pulse Ox 99.1 F 110 H 20 121/76 96 04/07/18 08:41 04/07/18 08:41 04/07/18 08:41 04/07/18 08:41 04/07/18 08:41 Intake and Output: 04/07/18 04/07/18 06:59 18:59 Intake Total 100 Balance 100 - Medications Medications: Current Medications Amlodipine Besylate (Norvasc) 5 mg PO DAILY [facility] Last Admin: 04/06/18 09:59 Dose: 5 mg Epoetin Milton (Procrit) 10,000 unit IV MWF [facility] Last Admin: 04/06/18 21:24 Dose: 10,000 unit Heparin Sodium (Porcine) (Heparin) 5,000 units SC Q12 [facility] Last Admin: 04/06/18 22:03 Dose: Not Given Loperamide HCl (Imodium) 2 mg PO PRN PRN PRN Reason: Diarrhea Oxycodone/Acetaminophen (Percocet 5/325 Mg Tab) 1 tab PO Q6H PRN PRN Reason: Pain, moderate (4-7) Stop: 04/09/18 12:50 Last Admin: 04/07/18 05:31 Dose: 1 tab - Labs Labs: 04/07/18 07:42 04/06/18 07:20 PT 13.0 SECONDS (9.7-12.2) H 04/05/18 12:30 INR 1.2 04/05/18 12:30 APTT 29 SECONDS (21-34) 04/05/18 12:30 - Constitutional Appears: Non-toxic, No Acute Distress - Head Exam Head Exam: ATRAUMATIC, NORMOCEPHALIC - ENT Exam Additional comments: Permactah site without hematoma or bleeding - Respiratory Exam Respiratory Exam: NORMAL BREATHING PATTERN - Cardiovascular Exam Cardiovascular Exam: +S1, +S2 - GI/Abdominal Exam GI & Abdominal Exam: Soft. absent: Guarding, Rigid, Tenderness - Neurological Exam Neurological Exam: Alert, Awake - Psychiatric Exam Psychiatric exam: Normal Affect, Normal Mood - Skin Skin Exam: Dry, Intact Assessment and Plan - Assessment and Plan (Free Text) Assessment: 47F POD#1 s/p permacath placement, PD catheter removal, exploratory laparoscopy with lysis of adhesions. F/u vein mapping will plan for av fistula left arm precautions further recs per Dr. Jennifer Hall PGY3
--- NOTE | 2018-04-07 10:51 | CP.PCM.PN ---
Subjective - Date & Time of Evaluation Date of Evaluation: 04/07/18 Time of Evaluation: 10:49 - Subjective Subjective: Feels better now PD cath removed BP controlled For vein mapping today Will need permcath tneh HD today EPO started Objective - Vital Signs/Intake and Output Vital Signs (last 24 hours): Temp Pulse Resp BP Pulse Ox 99.1 F 110 H 20 121/76 96 04/07/18 08:41 04/07/18 08:41 04/07/18 08:41 04/07/18 08:41 04/07/18 08:41 Intake and Output: 04/07/18 04/07/18 06:59 18:59 Intake Total 100 Balance 100 - Medications Medications: Current Medications Amlodipine Besylate (Norvasc) 5 mg PO DAILY [facility] Last Admin: 04/07/18 10:36 Dose: 5 mg Epoetin Milton (Procrit) 10,000 unit IV MWF [facility] Last Admin: 04/06/18 21:24 Dose: 10,000 unit Heparin Sodium (Porcine) (Heparin) 5,000 units SC Q12 [facility] Last Admin: 04/07/18 10:36 Dose: 5,000 units Loperamide HCl (Imodium) 2 mg PO PRN PRN PRN Reason: Diarrhea Oxycodone/Acetaminophen (Percocet 5/325 Mg Tab) 1 tab PO Q6H PRN PRN Reason: Pain, moderate (4-7) Stop: 04/09/18 12:50 Last Admin: 04/07/18 05:31 Dose: 1 tab - Labs Labs: 04/07/18 07:42 04/06/18 07:20 PT 13.0 SECONDS (9.7-12.2) H 04/05/18 12:30 INR 1.2 04/05/18 12:30 APTT 29 SECONDS (21-34) 04/05/18 12:30 - Constitutional Appears: No Acute Distress, Chronically Ill - Head Exam Head Exam: ATRAUMATIC, NORMAL INSPECTION - Eye Exam Eye Exam: EOMI, Normal appearance - Neck Exam Neck Exam: Normal Inspection. absent: Tenderness - Respiratory Exam Respiratory Exam: Clear to Ausculation Bilateral, NORMAL BREATHING PATTERN - Cardiovascular Exam Cardiovascular Exam: REGULAR RHYTHM, +S1 - GI/Abdominal Exam GI & Abdominal Exam: Soft. absent: Tenderness - Extremities Exam Extremities Exam: Normal Inspection, Tenderness - Neurological Exam Neurological Exam: Awake, CN II-XII Intact - Skin Skin Exam: Dry, Warm Assessment and Plan (1) Peritoneal dialysis catheter dysfunction Status: Acute (2) ESRD (end stage renal disease) on dialysis Status: Acute (3) IgA nephropathy Status: Acute (4) Type 2 diabetes mellitus with diabetic nephropathy Status: Acute - Assessment and Plan (Free Text) Plan: permcath HD today EPO Eventual AV access
--- NOTE | 2018-04-07 10:54 | RAD ---
Date of service: 04/06/2018 PROCEDURE: Intraoperative Fluoroscopy. HISTORY: RENAL FAILURE FINDINGS: Fluoroscopic assistance was provided for right-sided PermCath placement.. Please refer to the operative report from MAKEDA Cummings.
[2018-04-07] MEDS: Epoetin Alfa 10,000 unit/ml Dialysis IV SCH (15:39)
--- NOTE | 2018-04-07 19:07 | CP.PCM.PN ---
Subjective - Date & Time of Evaluation Date of Evaluation: 04/07/18 Time of Evaluation: 19:04 - Subjective Subjective: S: feels better. s/p dialysis. Peritoneal catheter removed. Central line inserted Objective - Vital Signs/Intake and Output Vital Signs (last 24 hours): Temp Pulse Resp BP Pulse Ox 100.7 F H 106 H 18 136/82 95 04/07/18 18:16 04/07/18 18:00 04/07/18 17:05 04/07/18 17:05 04/07/18 17:05 - Medications Medications: Current Medications Acetaminophen (Tylenol 325mg Tab) 650 mg PO Q6 PRN PRN Reason: Fever >100.4 F Last Admin: 04/07/18 18:16 Dose: 650 mg Amlodipine Besylate (Norvasc) 5 mg PO DAILY [facility] Last Admin: 04/07/18 10:36 Dose: 5 mg Epoetin Milton (Procrit) 10,000 unit IV TTS [facility] Last Admin: 04/07/18 15:39 Dose: 10,000 unit Heparin Sodium (Porcine) (Heparin) 5,000 units SC Q12 [facility] Last Admin: 04/07/18 10:36 Dose: 5,000 units Loperamide HCl (Imodium) 2 mg PO PRN PRN PRN Reason: Diarrhea Oxycodone/Acetaminophen (Percocet 5/325 Mg Tab) 1 tab PO Q6H PRN PRN Reason: Pain, moderate (4-7) Stop: 04/09/18 12:50 Last Admin: 04/07/18 05:31 Dose: 1 tab - Labs Labs: 04/07/18 07:42 04/06/18 07:20 PT 13.0 SECONDS (9.7-12.2) H 04/05/18 12:30 INR 1.2 04/05/18 12:30 APTT 29 SECONDS (21-34) 04/05/18 12:30 - Constitutional Appears: No Acute Distress - Head Exam Head Exam: NORMAL INSPECTION - ENT Exam ENT Exam: Normal Exam - Neck Exam Neck Exam: Normal Inspection - Respiratory Exam Respiratory Exam: NORMAL BREATHING PATTERN - Cardiovascular Exam Cardiovascular Exam: REGULAR RHYTHM - GI/Abdominal Exam GI & Abdominal Exam: Soft - Rectal Exam Rectal Exam: Deferred - Back Exam Back Exam: NORMAL INSPECTION - Neurological Exam Neurological Exam: Alert Assessment and Plan (1) Renal failure Status: Chronic (2) HTN (hypertension) Status: Chronic (3) Diabetes Status: Chronic - Assessment and Plan (Free Text) Assessment: A/p: Foe AV shunt insertion. Continue medications
[2018-04-08 07:56] LABS: HEMOGLOBIN 8.1 g/dL (11.0-16.0); MEAN CELL VOLUME 95.9 fL (81.0-99.0); MEAN CORPUSCULAR HEMOGLOBIN 31.9 pg (27.0-31.0); MEAN CORPUSCULAR HGB CONC 33.2 g/dL (33.0-37.0); MEAN PLATELET VOLUME 7.8 fL (7.2-11.7); RBC 2.54 Mil/uL (3.80-5.20); RED CELL DISTRIBUTION WIDTH 14.2 % (11.5-14.5); WHITE BLOOD COUNT 3.1 K/uL (4.8-10.8)
--- NOTE | 2018-04-08 08:12 | CP.PCM.PN ---
Subjective - Date & Time of Evaluation Date of Evaluation: 04/08/18 Time of Evaluation: 07:50 - Subjective Subjective: Patient no CP, no SOB, no cough, no palpitation; NO more diarrhea, no n/v Objective - Vital Signs/Intake and Output Vital Signs (last 24 hours): Temp Pulse Resp BP Pulse Ox 99 F 96 H 20 120/74 97 04/07/18 23:35 04/07/18 23:35 04/07/18 23:35 04/07/18 23:35 04/07/18 23:35 - Medications Medications: Current Medications Acetaminophen (Tylenol 325mg Tab) 650 mg PO Q6 PRN PRN Reason: Fever >100.4 F Last Admin: 04/07/18 18:16 Dose: 650 mg Amlodipine Besylate (Norvasc) 5 mg PO DAILY [facility] Last Admin: 04/07/18 10:36 Dose: 5 mg Epoetin Milton (Procrit) 10,000 unit IV TTS [facility] Last Admin: 04/07/18 15:39 Dose: 10,000 unit Heparin Sodium (Porcine) (Heparin) 5,000 units SC Q12 [facility] Last Admin: 04/07/18 22:28 Dose: 5,000 units Loperamide HCl (Imodium) 2 mg PO PRN PRN PRN Reason: Diarrhea Oxycodone/Acetaminophen (Percocet 5/325 Mg Tab) 1 tab PO Q6H PRN PRN Reason: Pain, moderate (4-7) Stop: 04/09/18 12:50 Last Admin: 04/07/18 05:31 Dose: 1 tab - Labs Labs: 04/08/18 07:45 04/06/18 07:20 PT 13.0 SECONDS (9.7-12.2) H 04/05/18 12:30 INR 1.2 04/05/18 12:30 APTT 29 SECONDS (21-34) 04/05/18 12:30 - Constitutional Appears: No Acute Distress - Eye Exam Eye Exam: Normal appearance - ENT Exam ENT Exam: Mucous Membranes Moist - Neck Exam Neck Exam: Full ROM. absent: Tenderness, Thyromegaly - Respiratory Exam Respiratory Exam: Clear to Ausculation Bilateral. absent: Rales, Rhonchi, Wheezes - Cardiovascular Exam Cardiovascular Exam: +S1, +S2, Murmur. absent: Gallop, REGULAR RHYTHM, JVD - GI/Abdominal Exam GI & Abdominal Exam: Soft. absent: Tenderness, Mass - Extremities Exam Extremities Exam: Full ROM. absent: Calf Tenderness, Joint Swelling, Pedal Edema Assessment and Plan - Assessment and Plan (Free Text) Assessment: HTN, ESRD; Non Functioning Cath For vein mapping Cont meds/ supportive care
[2018-04-08 08:29] LABS: CALCIUM 7.8 mg/dl (8.6-10.4)
[2018-04-08] MEDS ORDERED: guaiFENesin DM 200 mg-20 mg/10 ml UD PO PRN (08:31)
[2018-04-08] MEDS ORDERED: Epoetin Alfa 10,000 unit/ml Dialysis IV SCH (09:00)
--- NOTE | 2018-04-08 12:45 | VASCLAB ---
Date of service: 04/07/2018 PROCEDURE: Upper Extremity Venous Duplex Exam HISTORY: Renal failure, vein mapping, pre-op av fistula. PRIORS: None. TECHNIQUE: Bilateral upper extremity, internal jugular, subclavian, axillary, brachial, ulnar, radial, basilic and upper cephalic veins were evaluated. Flow was assessed with color Doppler, compressibility, assessment of phasic flow and augmentation response. Report prepared by Vignesh Castaneda, BS, RVT FINDINGS: RIGHT: 1. Internal Jugular Vein: Compressibility - Fully compressible: Thrombus - None : Flow - Phasic 2. Subclavian Vein:Compressibility - Fully compressible: Thrombus - None : Flow - Phasic 3. Axillary Vein: Compressibility - Fully compressible: Thrombus - None 4. Brachial Vein: Compressibility - Fully compressible: Thrombus - None 5. Ulnar Vein:Compressibility - Fully compressible: Thrombus - None 6. Radial Vein:Compressibility - Fully compressible: Thrombus - None 7. Cephalic Vein: Compressibility - Fully compressible: thrombus - None 7.1. Upper Arm: Proximal Diameter: 0.46cm. Mid Diameter: 0.44cm. Distal Diameter: 0.49cm. Antecubital Fossa Diameter: 0.65cm 7.2. Forearm: Proximal Diameter: 0.35cm. Mid Diameter:0.34cm. Distal Diameter: 0.36cm 8. Basilic Vein:Compressibility - Fully compressible: thrombus - None 8.1. Upper Arm:Proximal Diameter: 0.46cm. Mid Diameter: 0.34cm. Distal Diameter: 0.31cm. Antecubital Fossa Diameter: 0.43cm 8.2. Forearm: Proximal Diameter: 0.32cm. Mid Diameter:0.29cm. Distal Diameter: 0.25cm. LEFT: 1. Internal Jugular Vein: Compressibility - Fully compressible: Thrombus - None : Flow - Phasic 2. Subclavian Vein:Compressibility - Fully compressible: Thrombus - None : Flow - Phasic 3. Axillary Vein: Compressibility - Fully compressible: Thrombus - None 4. Brachial Vein: Compressibility - Fully compressible: Thrombus - None 5. Ulnar Vein:Compressibility - Fully compressible: Thrombus - None 6. Radial Vein:Compressibility - Fully compressible: Thrombus - None 7. Cephalic Vein: Compressibility - Fully compressible: thrombus - None 7.1. Upper Arm: Proximal Diameter: 0.43cm. Mid Diameter: 0.43cm. Distal Diameter: 0.47cm. Antecubital Fossa Diameter: 0.72cm 7.2. Forearm: Proximal Diameter: 0.42cm. Mid Diameter:0.36cm. Distal Diameter: 0.33cm 8. Basilic Vein:Compressibility - Fully compressible: thrombus - None 8.1. Upper Arm:Proximal Diameter: 0.42cm. Mid Diameter: 0.33cm. Distal Diameter: 0.29cm. Antecubital Fossa Diameter: 0.36cm 8.2. Forearm: Proximal Diameter: 0.20cm. Mid Diameter:0.24cm. Distal Diameter: 0.22cm. OTHER FINDINGS: Right: None. Left: None. IMPRESSION: Right: Diameter measurements of the right cephalic vein is measured between 0.34 cm and 0.65 cm and basilic vein is measured between 0.25 cm and 0.46 cm. Left: Diameter measurements of the left cephalic vein is measured between 0.33 cm and 0.72 cm and basilic vein is measured between 0.20cm and 0.42cm.
[2018-04-08] MEDS ORDERED: HEPARIN-NS 5,000 UNITS/500 ML 5,000 UNIT/500 ML BAG IV ONE (12:52)
[2018-04-08] MEDS ORDERED: ceFAZolin IV 1 gm in Dextrose 1 GM/50 ML BAG IVPB ONE (12:52)
[2018-04-08] MEDS ORDERED: Dextrose 50% SYRINGE Inj (50 ml) IV ONE (13:15)
[2018-04-08] MEDS ORDERED: Propofol 10 mg/ml Inj (20 ML) ONE (13:18)
[2018-04-08] MEDS ORDERED: Dextrose 50% VIAL Inj (50 ml) IV ONE (13:19)
--- NOTE | 2018-04-08 15:00 | CP.PCM.PN ---
Subjective - Date & Time of Evaluation Date of Evaluation: 04/08/18 Time of Evaluation: 14:58 - Subjective Subjective: For AV access surgery now Stable dialysis 04/07 HTN controlled Still weak, no other new complaint Objective - Vital Signs/Intake and Output Vital Signs (last 24 hours): Temp Pulse Resp BP Pulse Ox 98.7 F 99 H 20 122/80 96 04/08/18 08:00 04/08/18 12:00 04/08/18 08:00 04/08/18 08:00 04/08/18 08:00 Intake and Output: 04/08/18 04/08/18 06:59 18:59 Intake Total 50 Balance 50 - Medications Medications: Current Medications Acetaminophen (Tylenol 325mg Tab) 650 mg PO Q6 PRN PRN Reason: Fever >100.4 F Last Admin: 04/07/18 18:16 Dose: 650 mg Amlodipine Besylate (Norvasc) 5 mg PO DAILY [facility] Last Admin: 04/08/18 11:00 Dose: Not Given Epoetin Milton (Procrit) 10,000 unit IV TTS [facility] Last Admin: 04/07/18 15:39 Dose: 10,000 unit Loperamide HCl (Imodium) 2 mg PO PRN PRN PRN Reason: Diarrhea Oxycodone/Acetaminophen (Percocet 5/325 Mg Tab) 1 tab PO Q6H PRN PRN Reason: Pain, moderate (4-7) Stop: 04/09/18 12:50 Last Admin: 04/07/18 05:31 Dose: 1 tab - Labs Labs: 04/08/18 07:45 04/08/18 07:45 PT 13.0 SECONDS (9.7-12.2) H 04/05/18 12:30 INR 1.2 04/05/18 12:30 APTT 29 SECONDS (21-34) 04/05/18 12:30 - Constitutional Appears: No Acute Distress, Chronically Ill - Head Exam Head Exam: NORMAL INSPECTION, NORMOCEPHALIC - Eye Exam Eye Exam: EOMI, Normal appearance - Neck Exam Neck Exam: Normal Inspection. absent: Tenderness - Respiratory Exam Respiratory Exam: Clear to Ausculation Bilateral, NORMAL BREATHING PATTERN - Cardiovascular Exam Cardiovascular Exam: REGULAR RHYTHM, +S1 - GI/Abdominal Exam GI & Abdominal Exam: Soft. absent: Tenderness - Extremities Exam Extremities Exam: Normal Inspection. absent: Tenderness - Neurological Exam Neurological Exam: Awake, CN II-XII Intact - Skin Skin Exam: Dry, Warm Assessment and Plan (1) Peritoneal dialysis catheter dysfunction Status: Acute (2) ESRD (end stage renal disease) on dialysis Status: Acute (3) IgA nephropathy Status: Acute (4) Type 2 diabetes mellitus with diabetic nephropathy Status: Acute - Assessment and Plan (Free Text) Plan: AV fistula placement Dialysis TTS On EPO Monitor BP
--- NOTE | 2018-04-08 16:35 | PCM.SURG1 ---
Surgeon's Initial Post Op Note - Surgeon's Notes Surgeon: Dr. Rodriguez Gang Miner: Dr. Recinos PGY-4 Type of Anesthesia: General LMA Pre-Operative Diagnosis: Renal failure requiring dialysis Operative Findings: Radial and Ulnar pulse checked with doppler Post-Operative Diagnosis: Renal failure requiring dialysis Operation Performed: Left brachiocephalic fistula Specimen/Specimens Removed: none Estimated Blood Loss: EBL {In ML}: 20 Blood Products Given: N/A Drains Used: No Drains Post-Op Condition: Fair Date of Surgery/Procedure: 04/08/18 Time of Surgery/Procedure: 16:35
[2018-04-08] MEDS ORDERED: HYDROmorphone 0.5 mg/0.5 ml ISec IVP PRN (16:43)
[2018-04-09 06:14] LABS: BASO # 0.1 K/uL (0.0-0.2); BASO % 0.9 % (0.0-2.0); EOS % 0.5 % (0.0-4.0); HEMOGLOBIN 8.6 g/dL (11.0-16.0); LYMPH # 0.5 K/uL (1.0-4.3); LYMPH % 7.5 % (20.0-40.0); MEAN CELL VOLUME 96.5 fL (81.0-99.0); MEAN CORPUSCULAR HEMOGLOBIN 31.9 pg (27.0-31.0); MEAN CORPUSCULAR HGB CONC 33.1 g/dL (33.0-37.0); MEAN PLATELET VOLUME 7.6 fL (7.2-11.7); MONO # 0.5 K/uL (0.0-0.8); MONO % 6.5 % (0.0-10.0); NEUT # 5.9 K/uL (1.8-7.0); NEUT % 84.6 % (50.0-75.0); PLATELET COUNT 264 K/uL (130-400); RBC 2.69 Mil/uL (3.80-5.20); RED CELL DISTRIBUTION WIDTH 13.9 % (11.5-14.5); WHITE BLOOD COUNT 6.9 K/uL (4.8-10.8)
[2018-04-09 06:35] LABS: ALB/GLOB RATIO 0.8 (1.0-2.1); ALBUMIN 2.7 g/dL (3.5-5.0); CALCIUM 7.8 mg/dl (8.6-10.4)
--- NOTE | 2018-04-09 07:24 | OP ---
PROCEDURE DATE: 04/08/2018 PREOPERATIVE DIAGNOSIS: Renal failure. POSTOPERATIVE DIAGNOSIS: Renal failure. PROCEDURE CARRIED OUT: Brachiocephalic fistula, left elbow. SURGEON: Jesse Rodriguez Jr., MD COIN BOX COLLECTOR: Malika Recinos DO ANESTHESIOLOGIST: Mr. Ellison. INDICATIONS: The patient is a middle-aged woman with renal insufficiency, previously on peritoneal dialysis, came with malfunctioning of the catheter. Dense intraabdominal adhesions prevented placement of the PD catheter. We then placed a Perma-Cath, now requiring permanent access. OPERATIVE FINDINGS: The patient has a small arm, small veins; however, fistula was created between the brachial artery at the elbow and the cephalic vein. At the end of the procedure, there was diminution of the pulse at the wrist, but very good Doppler signals in both vessels. There was excellent flow to the fistula. DESCRIPTION OF PROCEDURE: The patient was given general anesthesia and intravenous antibiotics. The veins were mapped on the arm, dissected, and carefully identified. Although, there was a fairly good cephalic vein at the wrist, it was not of suitable caliber with the adjacent artery to consider a fistula. Because of this, we went to the elbow. We were unable to carry out a [id number] fistula with bidirectional flow because of the distance between the two vessels. Nonetheless, we then mobilized the vein and created a spatulated end of vein to side of artery anastomosis to the brachial artery above the bifurcation. At the completion of the procedure, there was good flow to the wrist, but a diminution of the pulse. The anastomosis was carried out using loupe magnification and heparin anticoagulation. Blood loss was 20 mL. Jesse Rodriguez Jr., MDDD: 04/08/2018 15:56:53
--- NOTE | 2018-04-09 08:20 | CP.PCM.PN ---
Subjective - Date & Time of Evaluation Date of Evaluation: 04/09/18 Time of Evaluation: 08:05 - Subjective Subjective: Pt has fever up to 102 kast night. Pt also has lower abdominal pain just below where cath was removed. No diarrhea, no CP, no cough, no SOB, no n/v Objective - Vital Signs/Intake and Output Vital Signs (last 24 hours): Temp Pulse Resp BP Pulse Ox 99.7 F H 111 H 20 121/74 96 04/09/18 08:12 04/09/18 08:12 04/09/18 08:12 04/09/18 08:12 04/09/18 08:12 Intake and Output: 04/09/18 04/09/18 06:59 18:59 Intake Total 350 Balance 350 - Medications Medications: Current Medications Acetaminophen (Tylenol 325mg Tab) 650 mg PO Q6 PRN PRN Reason: Fever >100.4 F Last Admin: 04/09/18 05:53 Dose: 650 mg Amlodipine Besylate (Norvasc) 5 mg PO DAILY [facility] Last Admin: 04/08/18 11:00 Dose: Not Given Epoetin Milton (Procrit) 10,000 unit IV TTS [facility] Last Admin: 04/07/18 15:39 Dose: 10,000 unit Hydromorphone HCl (Dilaudid) 0.5 mg IVP Q15M PRN PRN Reason: Pain, severe (8-10) Loperamide HCl (Imodium) 2 mg PO PRN PRN PRN Reason: Diarrhea Oxycodone/Acetaminophen (Percocet 5/325 Mg Tab) 1 tab PO Q6H PRN PRN Reason: Pain, moderate (4-7) Stop: 04/09/18 12:50 Last Admin: 04/07/18 05:31 Dose: 1 tab - Labs Labs: 04/09/18 06:11 04/09/18 06:11 PT 13.0 SECONDS (9.7-12.2) H 04/05/18 12:30 INR 1.2 04/05/18 12:30 APTT 29 SECONDS (21-34) 04/05/18 12:30 - Constitutional Appears: No Acute Distress - Eye Exam Eye Exam: Normal appearance - ENT Exam ENT Exam: Mucous Membranes Moist - Neck Exam Neck Exam: Full ROM - Respiratory Exam Respiratory Exam: Decreased Breath Sounds. absent: Rales, Rhonchi, Wheezes - Cardiovascular Exam Cardiovascular Exam: REGULAR RHYTHM, +S1, +S2, Murmur. absent: Gallop, JVD - GI/Abdominal Exam GI & Abdominal Exam: Soft, Tenderness ((+) lower abdomen with mild rebound). absent: Mass - Extremities Exam Extremities Exam: Full ROM, Normal Capillary Refill. absent: Calf Tenderness, Pedal Edema Assessment and Plan - Assessment and Plan (Free Text) Assessment: Fever/ Abd pain ESRD s/p AV shunt placement and reinsertion & removal of PD cath Will get CT of abdomen w/ contrast Vanco + Rocephin Cont supportive
[2018-04-09 09:08] LABS: BANDS 3 % (0-2); LYMPHOCYTE 5 % (20-40); MONOCYTE 5 % (0-10); NEUTROPHIL 87 % (50-75); PLATELET ESTIMATE NORMAL (NORMAL); TOTAL CELLS COUNTED 100
[2018-04-09 09:09] LABS: ANISOCYTOSIS SLIGHT
[2018-04-09 09:10] LABS: TOXIC GRANULATION PRESENT
[2018-04-09 09:11] LABS: HYPOCHROMIC SLIGHT; POLYCHROMIC SLIGHT
--- NOTE | 2018-04-09 09:11 | CP.PCM.PN ---
Subjective - Date & Time of Evaluation Date of Evaluation: 04/09/18 Time of Evaluation: 09:10 - Subjective Subjective: temp up to 102 lst PM bp stable bllod cultures obtained and vanco given up in bed awake alert comfortable ate entire breakfast ROS no chills fever no cough or chest pain abd pain over wound no n/v/d no dysuria no headache Objective - Vital Signs/Intake and Output Vital Signs (last 24 hours): Temp Pulse Resp BP Pulse Ox 99.7 F H 111 H 20 121/74 96 04/09/18 08:12 04/09/18 08:12 04/09/18 08:12 04/09/18 08:12 04/09/18 08:12 Intake and Output: 04/09/18 04/09/18 06:59 18:59 Intake Total 350 Balance 350 - Medications Medications: Current Medications Acetaminophen (Tylenol 325mg Tab) 650 mg PO Q6 PRN PRN Reason: Fever >100.4 F Last Admin: 04/09/18 05:53 Dose: 650 mg Amlodipine Besylate (Norvasc) 5 mg PO DAILY [facility] Last Admin: 04/08/18 11:00 Dose: Not Given Epoetin Milton (Procrit) 10,000 unit IV TTS [facility] Last Admin: 04/07/18 15:39 Dose: 10,000 unit Hydromorphone HCl (Dilaudid) 0.5 mg IVP Q15M PRN PRN Reason: Pain, severe (8-10) Loperamide HCl (Imodium) 2 mg PO PRN PRN PRN Reason: Diarrhea Oxycodone/Acetaminophen (Percocet 5/325 Mg Tab) 1 tab PO Q6H PRN PRN Reason: Pain, moderate (4-7) Stop: 04/09/18 12:50 Last Admin: 04/07/18 05:31 Dose: 1 tab - Labs Labs: 04/09/18 06:11 04/09/18 06:11 PT 13.0 SECONDS (9.7-12.2) H 04/05/18 12:30 INR 1.2 04/05/18 12:30 APTT 29 SECONDS (21-34) 04/05/18 12:30 - Constitutional Appears: Well, No Acute Distress - Eye Exam Eye Exam: absent: Conjunctival injection - ENT Exam ENT Exam: Mucous Membranes Moist - Respiratory Exam Respiratory Exam: NORMAL BREATHING PATTERN Additional comments: dimineshed sounds left base - Cardiovascular Exam Cardiovascular Exam: REGULAR RHYTHM. absent: JVD - GI/Abdominal Exam GI & Abdominal Exam: Soft, Hypoactive Bowel Sounds. absent: Distended Additional comments: tender over wound left side - Extremities Exam Extremities Exam: absent: Calf Tenderness Additional comments: banage left forearm,bruit heard good left radial pulse,good hand strength - Back Exam Back Exam: absent: CVA tenderness (L), CVA tenderness (R) - Psychiatric Exam Psychiatric exam: Normal Mood - Skin Skin Exam: Dry Assessment and Plan (1) Diabetes Status: Chronic (2) HTN (hypertension) Status: Chronic (3) ESRD (end stage renal disease) on dialysis Status: Acute - Assessment and Plan (Free Text) Plan: ct abd today dialyss to follow await blood cultures
[2018-04-09] MEDS ORDERED: Iohexol 240 (50 ml) PO ONE (09:30)
[2018-04-09] MEDS ORDERED: Cefepime IV 1 gm in Dextrose 1 GM/50 ML BAG IVPB SCH (10:30)
--- NOTE | 2018-04-09 11:40 | CP.PCM.PN ---
Subjective - Date & Time of Evaluation Date of Evaluation: 04/09/18 Time of Evaluation: 09:15 - Subjective Subjective: Vascular surgery Pt seen and examined. Febrile overnight. C/O pain in suprapubic area. Will go for CT abd pelvis. No N/V, diarrhea, or cough. Objective - Vital Signs/Intake and Output Vital Signs (last 24 hours): Temp Pulse Resp BP Pulse Ox 99.5 F 100 H 20 121/76 100 04/09/18 11:21 04/09/18 11:21 04/09/18 11:21 04/09/18 11:21 04/09/18 11:21 Intake and Output: 04/09/18 04/09/18 06:59 18:59 Intake Total 350 Balance 350 - Medications Medications: Current Medications Acetaminophen (Tylenol 325mg Tab) 650 mg PO Q6 PRN PRN Reason: Fever >100.4 F Last Admin: 04/09/18 05:53 Dose: 650 mg Amlodipine Besylate (Norvasc) 5 mg PO DAILY [facility] Last Admin: 04/08/18 11:00 Dose: Not Given Epoetin M[place]on (Procrit) 10,000 unit IV TTS [facility] Last Admin: 04/07/18 15:39 Dose: 10,000 unit Hydromorphone HCl (Dilaudid) 0.5 mg IVP Q15M PRN PRN Reason: Pain, severe (8-10) Cefepime HCl (Maxipime Iv 1 Gm Premix) 1 gm in 50 mls @ 100 mls/hr IVPB Q24H [facility]; Protocol Loperamide HCl (Imodium) 2 mg PO PRN PRN PRN Reason: Diarrhea Oxycodone/Acetaminophen (Percocet 5/325 Mg Tab) 1 tab PO Q6H PRN PRN Reason: Pain, moderate (4-7) Stop: 04/09/18 12:50 Last Admin: 04/07/18 05:31 Dose: 1 tab - Labs Labs: 04/09/18 06:11 04/09/18 06:11 PT 13.0 SECONDS (9.7-12.2) H 04/05/18 12:30 INR 1.2 04/05/18 12:30 APTT 29 SECONDS (21-34) 04/05/18 12:30 - Constitutional Appears: Non-toxic, No Acute Distress - Head Exam Head Exam: ATRAUMATIC, NORMOCEPHALIC - Eye Exam Eye Exam: EOMI - Respiratory Exam Respiratory Exam: NORMAL BREATHING PATTERN. absent: Respiratory Distress - Cardiovascular Exam Cardiovascular Exam: RRR, +S1, +S2 - GI/Abdominal Exam GI & Abdominal Exam: Guarding, Soft, Tenderness (in suprapubic region). absent: Distended, Firm, Rigid, Rebound Additional comments: dressings D/I - Extremities Exam Extremities Exam: absent: Calf Tenderness, Joint Swelling - Neurological Exam Neurological Exam: Alert, Awake, Oriented x3 - Skin Skin Exam: Dry, Warm Assessment and Plan - Assessment and Plan (Free Text) Assessment: 47F POD#2 s/p permacath placement, PD catheter removal, exploratory laparoscopy with lysis of adhesions. POD #1 S/P Left brachiocephalic fistula Plan: Examined and discussed with Dr. Rodriguez Follow up CT and culture results Continue Abx per ID Follow abdominal exam PGY4
--- NOTE | 2018-04-09 13:24 | CT ---
CT abdomen and pelvis HISTORY: Fever. Abdominal pain. Comparison: 04/05/2018 Technique: Multiple contiguous axial images were performed through the abdomen and pelvis with the use of intravenous contrast. Subsequently, sagittal and coronal reformatted images were obtained. This CT exam was performed using one or more of the following dose reduction techniques: Automated exposure control, adjustment of the mA and/or kV according to patient size, and/or use of iterative reconstruction technique. Findings: Worsening now moderate bilateral pleural effusions. Bibasilar consolidative changes at the lung bases. Scattered atelectasis and consolidation within the visualized lung reed. No pericardial effusion. Liver is preserved. Mild gallbladder wall thickening and edema, possibly reactive. Few splenic hypodensities with a heterogeneous attenuation of the spleen. Adrenal glands are preserved. Pancreas is preserved. Distended stomach with food substance. Thickening of the distal portion of the stomach as well as the proximal duodenum which may represent a gastroduodenitis. Clinical correlation. Thickening of small bowel loops seen within the upper and mid abdomen suggestive for an enteritis. Atrophic right kidney with multiple low-attenuation foci seen throughout the right kidney with associated perinephric fat stranding. Atrophic left kidney with multiple low-attenuation foci seen throughout the left kidney for example in the upper pole measuring 1.6 centimeters demonstrating a Hounsfield unit attenuation of 26, indeterminate. T Thick-walled urinary bladder. Heterogeneous uterus and bilateral adnexa. Enhancing loculated fluid collection seen within posterior pelvis/pelvic cul-de-sac best seen on series 3, image 140 measuring 5.8 x 3.5 centimeters. This may represent loculated ascites however developing phlegmon and/or abscess collection cannot be excluded. Clinical correlation. Fecal retention in the colon. Scattered areas of thickening throughout the colon including the sigmoid colon, transverse colon, and portions of the ascending colon which may be related to acute infectious and or inflammatory changes. Appendix is visualized measuring up to 7 millimeters in width, upper limits of normal. Reticulation, edema, and fluid seen throughout the abdomen and pelvis. Atherosclerotic calcification and plaque within the visualized aorta and iliac vessels. Reticulation and edema seen within the anterior midline abdominal subcutaneous soft tissues. Degenerative changes in the spine and hips. Posterior disc osteophyte complex at the L5-S1 level. Anterior osteophytosis at the L3-4 level. Impression: 1. Enhancing loculated fluid collection seen within posterior pelvis/pelvic cul-de-sac best seen on series 3, image 140 measuring 5.8 x 3.5 centimeters. This may represent loculated ascites however developing phlegmon and/or abscess collection cannot be excluded. Clinical correlation. 2. Scattered areas of thickening throughout the colon including the sigmoid colon, transverse colon, and portions of the ascending colon which may be related to acute infectious and or inflammatory changes. 3. Thickening of the distal portion of the stomach as well as the proximal duodenum which may represent a gastroduodenitis. Clinical correlation. 4. Thickening of small bowel loops seen within the upper and mid abdomen suggestive for an enteritis. 5. Worsening now moderate bilateral pleural effusions. Bibasilar consolidative changes at the lung bases. Scattered atelectasis and consolidation within the visualized lung reed. 6. Mild gallbladder wall thickening and edema, possibly reactive. 7. Atrophic right kidney with multiple low-attenuation foci seen throughout the right kidney with associated perinephric fat stranding. Atrophic left kidney with multiple low-attenuation foci seen throughout the left kidney for example in the upper pole measuring 1.6 centimeters demonstrating a Hounsfield unit attenuation of 26, indeterminate. 8. Thick-walled urinary bladder. 9. Reticulation, edema, and fluid seen throughout the abdomen and pelvis. Reticulation and edema seen within the anterior midline abdominal subcutaneous soft tissues.
--- NOTE | 2018-04-09 15:31 | CP.PCM.CON ---
History of Present Illness - History of Present Illness History of Present Illness: reason for consultation: bilateral pleural effusion 47-year-old female with history of hypertension, end-stage renal disease was on peritoneal dialysis and now hemodialysis was admitted for poor drainage from peritoneal dialysis catheter. CAT scan of the chest consistent with small bilateral pleural effusion. Patient denies shortness of breath, , denies cough.. Patient has been spiking fevers and on antibiotics Review of Systems - Review of Systems All systems: reviewed and no additional remarkable complaints except Past Patient History - Infectious Disease Hx of Infectious Diseases: None - Tetanus Immunizations Tetanus Immunization: Unknown - Past Medical History & Family History Past Medical History?: Yes - Past Social History Smoking Status: Never Smoked Alcohol: None Drugs: Denies Home Situation {Lives}: With Family - CARDIAC Hx Cardiac Disorders: Yes Hx Hypertension: Yes - PULMONARY Hx Respiratory Disorders: No - NEUROLOGICAL Hx Neurological Disorder: No - HEENT Hx HEENT Problems: No - RENAL Hx Chronic Kidney Disease: No - ENDOCRINE/METABOLIC Hx Endocrine Disorders: No - HEMATOLOGICAL/ONCOLOGICAL Hx Blood Disorders: No Hx Blood Transfusions: No - INTEGUMENTARY Hx Dermatological Problems: No - MUSCULOSKELETAL/RHEUMATOLOGICAL Hx Falls: No - GASTROINTESTINAL Hx Gastrointestinal Disorders: No - GENITOURINARY/GYNECOLOGICAL Hx Genitourinary Disorders: No - PSYCHIATRIC Hx Psychophysiologic Disorder: No Hx Substance Use: No - SURGICAL HISTORY Hx Surgeries: No - ANESTHESIA Hx Anesthesia: No Meds Allergies/Adverse Reactions: Allergies Allergy/AdvReac Type Severity Reaction Status Date / Time No Known Allergies Allergy Verified 04/04/18 18:33 - Medications Medications: Current Medications Acetaminophen (Tylenol 325mg Tab) 650 mg PO Q6 PRN PRN Reason: Fever >100.4 F Last Admin: 04/09/18 05:53 Dose: 650 mg Amlodipine Besylate (Norvasc) 5 mg PO DAILY [facility] Last Admin: 04/09/18 12:29 Dose: Not Given Epoetin Milton (Procrit) 10,000 unit IV TTS [facility] Last Admin: 04/07/18 15:39 Dose: 10,000 unit Hydromorphone HCl (Dilaudid) 0.5 mg IVP Q15M PRN PRN Reason: Pain, severe (8-10) Cefepime HCl (Maxipime Iv 1 Gm Premix) 1 gm in 50 mls @ 100 mls/hr IVPB Q24H [facility]; Protocol Loperamide HCl (Imodium) 2 mg PO PRN PRN PRN Reason: Diarrhea Results - Vital Signs Recent Vital Signs: Last Vital Signs Temp 98.2 F 04/09/18 12:30 Pulse 97 H 04/09/18 12:30 Resp 18 04/09/18 12:30 BP 126/76 04/09/18 13:30 Pulse Ox 96 04/09/18 12:30 - Labs Result Diagrams: 04/09/18 06:11 04/09/18 06:11 Labs: Laboratory Results - last 24 hr 04/08/18 04/09/18 04/09/18 17:45 06:11 06:11 WBC 6.9 D RBC 2.69 L Hgb 8.6 L Hct 26.0 L MCV 96.5 MCH 31.9 H MCHC 33.1 RDW 13.9 Plt Count 264 MPV 7.6 Neut % (Auto) 84.6 H Lymph % (Auto) 7.5 L [place] % (Auto) 6.5 Eos % (Auto) 0.5 Baso % (Auto) 0.9 Neut # (Auto) 5.9 Lymph # (Auto) 0.5 L [place] # (Auto) 0.5 Eos # (Auto) 0.0 Baso # (Auto) 0.1 Neutrophils % (Manual) 87 H Band Neutrophils % 3 H Lymphocytes % (Manual) 5 L Monocytes % (Manual) 5 Toxic Granulation Present Platelet Estimate Normal Polychromasia Slight Hypochromasia (manual) Slight Anisocytosis (manual) Slight Macrocytosis (manual) Slight Sodium 135 Potassium 5.2 Chloride 101 Carbon Dioxide 26 Anion Gap 13 BUN 26 H Creatinine 7.5 H* D Est GFR ( Amer) 7 Est GFR (Non-Af Amer) 6 POC Glucose (mg/dL) 76 Random Glucose 104 Lactic Acid Calcium 7.8 L Total Bilirubin 0.4 AST 19 ALT 13 Alkaline Phosphatase 77 Total Protein 6.1 L Albumin 2.7 L Globulin 3.4 Albumin/Globulin Ratio 0.8 L 04/09/18 04/09/18 04/09/18 06:43 07:41 12:02 WBC RBC Hgb Hct MCV MCH MCHC RDW Plt Count MPV Neut % (Auto) Lymph % (Auto) [place] % (Auto) Eos % (Auto) Baso % (Auto) Neut # (Auto) Lymph # (Auto) M[place] # (Auto) Eos # (Auto) Baso # (Auto) Neutrophils % (Manual) Band Neutrophils % Lymphocytes % (Manual) Monocytes % (Manual) Toxic Granulation Platelet Estimate Polychromasia Hypochromasia (manual) Anisocytosis (manual) Macrocytosis (manual) Sodium Potassium Chloride Carbon Dioxide Anion Gap BUN Creatinine Est GFR ( Amer) Est GFR (Non-Af Amer) POC Glucose (mg/dL) 101 141 H Random Glucose Lactic Acid 0.8 Calcium Total Bilirubin AST ALT Alkaline Phosphatase Total Protein Albumin Globulin Albumin/Globulin Ratio Assessment & Plan (1) Pleural effusion Status: Acute Comment: secondary to renal failure//peritoneal dialysis. Patient asymptomatic. Continue antibiotics. Followup culture and sensitivity. Followup chest x-ray
[2018-04-09] MEDS: Epoetin Alfa 10,000 unit/ml Dialysis IV SCH (16:08)
[2018-04-09] MEDS: Cefepime IV 1 gm in Dextrose 1 GM/50 ML BAG IVPB SCH (16:47)
[2018-04-10 08:42] LABS: BASO % 0.4 % (0.0-2.0); EOS # 0.2 K/uL (0.0-0.7); EOS % 3.7 % (0.0-4.0); HEMOGLOBIN 7.2 g/dL (11.0-16.0); LYMPH # 0.6 K/uL (1.0-4.3); LYMPH % 11.4 % (20.0-40.0); MEAN CELL VOLUME 96.9 fL (81.0-99.0); MEAN CORPUSCULAR HEMOGLOBIN 31.6 pg (27.0-31.0); MEAN CORPUSCULAR HGB CONC 32.7 g/dL (33.0-37.0); MEAN PLATELET VOLUME 7.7 fL (7.2-11.7); MONO # 0.5 K/uL (0.0-0.8); MONO % 9.9 % (0.0-10.0); NEUT # 3.6 K/uL (1.8-7.0); NEUT % 74.6 % (50.0-75.0); NRBC % 0.1 % (0.0-2.0); RBC 2.28 Mil/uL (3.80-5.20); RED CELL DISTRIBUTION WIDTH 14.2 % (11.5-14.5); WHITE BLOOD COUNT 4.9 K/uL (4.8-10.8)
--- NOTE | 2018-04-10 08:47 | CP.PCM.PN ---
Subjective - Date & Time of Evaluation Date of Evaluation: 04/10/18 Time of Evaluation: 07:30 - Subjective Subjective: Vascular Surgery Pt seen and examined. Afebrile overnight. No further pain in suprapubic area. No N/V, SOB, diarrhea, or cough. Objective - Vital Signs/Intake and Output Vital Signs (last 24 hours): Temp Pulse Resp BP Pulse Ox 98.5 F 90 18 120/72 98 04/10/18 07:33 04/10/18 07:33 04/10/18 07:33 04/10/18 07:33 04/10/18 07:33 Intake and Output: 04/10/18 04/10/18 06:59 18:59 Intake Total 300 Balance 300 - Medications Medications: Current Medications Acetaminophen (Tylenol 325mg Tab) 650 mg PO Q6 PRN PRN Reason: Fever >100.4 F Last Admin: 04/09/18 05:53 Dose: 650 mg Amlodipine Besylate (Norvasc) 5 mg PO DAILY [facility] Last Admin: 04/09/18 12:29 Dose: Not Given Epoetin Milton (Procrit) 10,000 unit IV TTS [facility] Last Admin: 04/09/18 16:08 Dose: 10,000 unit Hydromorphone HCl (Dilaudid) 0.5 mg IVP Q15M PRN PRN Reason: Pain, severe (8-10) Cefepime HCl (Maxipime Iv 1 Gm Premix) 1 gm in 50 mls @ 100 mls/hr IVPB Q24H [facility]; Protocol Last Admin: 04/09/18 16:47 Dose: 100 mls/hr Loperamide HCl (Imodium) 2 mg PO PRN PRN PRN Reason: Diarrhea - Labs Labs: 04/09/18 06:11 04/09/18 06:11 PT 13.0 SECONDS (9.7-12.2) H 04/05/18 12:30 INR 1.2 04/05/18 12:30 APTT 29 SECONDS (21-34) 04/05/18 12:30 - Constitutional Appears: Non-toxic, No Acute Distress - Head Exam Head Exam: ATRAUMATIC, NORMOCEPHALIC - Eye Exam Eye Exam: EOMI. absent: Scleral icterus - Respiratory Exam Respiratory Exam: NORMAL BREATHING PATTERN. absent: Respiratory Distress - Cardiovascular Exam Cardiovascular Exam: RRR, +S1, +S2 - GI/Abdominal Exam GI & Abdominal Exam: Soft. absent: Distended, Firm, Guarding, Rigid, Tenderness, Rebound Additional comments: dressings D/I - Neurological Exam Neurological Exam: Alert, Awake, Oriented x3 - Skin Skin Exam: Dry, Warm Assessment and Plan - Assessment and Plan (Free Text) Assessment: 47F POD#3 s/p permacath placement, PD catheter removal, exploratory laparoscopy with lysis of adhesions. POD #2 S/P Left brachiocephalic fistula Plan: CT shows Worsening bilateral pleural effusions and fluid in the pelvis (expected after having PD cath removed) Abd exam improved Monitor for fevers Encourage ambulation, incentive spirometry Continue Abx per Jarrod Friedman PGY4
[2018-04-10 09:02] LABS: CALCIUM 7.7 mg/dl (8.6-10.4)
[2018-04-10] MEDS: Cefepime IV 1 gm in Dextrose 1 GM/50 ML BAG IVPB SCH (15:32)
--- NOTE | 2018-04-10 16:59 | CP.PCM.PN ---
Subjective - Date & Time of Evaluation Date of Evaluation: 04/10/18 Time of Evaluation: 16:57 - Subjective Subjective: S: Feels richard. No fever. No SOB Objective - Vital Signs/Intake and Output Vital Signs (last 24 hours): Temp Pulse Resp BP Pulse Ox 98.7 F 100 H 18 123/72 96 04/10/18 16:36 04/10/18 16:00 04/10/18 16:00 04/10/18 16:00 04/10/18 16:00 Intake and Output: 04/10/18 04/10/18 06:59 18:59 Intake Total 300 Balance 300 - Medications Medications: Current Medications Acetaminophen (Tylenol 325mg Tab) 650 mg PO Q6 PRN PRN Reason: Fever >100.4 F Last Admin: 04/09/18 05:53 Dose: 650 mg Amlodipine Besylate (Norvasc) 5 mg PO DAILY [facility] Last Admin: 04/10/18 10:10 Dose: 5 mg Epoetin Milton (Procrit) 10,000 unit IV TTS [facility] Last Admin: 04/09/18 16:08 Dose: 10,000 unit Hydromorphone HCl (Dilaudid) 0.5 mg IVP Q15M PRN PRN Reason: Pain, severe (8-10) Cefepime HCl (Maxipime Iv 1 Gm Premix) 1 gm in 50 mls @ 100 mls/hr IVPB Q24H [facility]; Protocol Last Admin: 04/10/18 15:32 Dose: 100 mls/hr Loperamide HCl (Imodium) 2 mg PO PRN PRN PRN Reason: Diarrhea - Labs Labs: 04/10/18 08:31 04/10/18 08:31 PT 13.0 SECONDS (9.7-12.2) H 04/05/18 12:30 INR 1.2 04/05/18 12:30 APTT 29 SECONDS (21-34) 04/05/18 12:30 - Constitutional Appears: Non-toxic - Head Exam Head Exam: NORMAL INSPECTION - ENT Exam ENT Exam: Normal Exam - Respiratory Exam Respiratory Exam: NORMAL BREATHING PATTERN - Cardiovascular Exam Cardiovascular Exam: REGULAR RHYTHM - GI/Abdominal Exam GI & Abdominal Exam: Soft - Rectal Exam Rectal Exam: Deferred - Neurological Exam Neurological Exam: Alert Assessment and Plan (1) Renal failure Status: Chronic (2) HTN (hypertension) Status: Chronic (3) Diabetes Status: Chronic (4) Pleural effusion Status: Acute - Assessment and Plan (Free Text) Assessment: A/p: Continue medications. For placement
--- NOTE | 2018-04-10 18:01 | CP.PCM.CON ---
History of Present Illness - History of Present Illness History of Present Illness: seen on rounds cultures pending iv rx ordered 47F with PMH of HTN and ESRD on daily peritoneal dialysis came to the ER because the peritoneal dialysis catheter has not been draining appropriately. Catheter was removed and AV fistula placed then started spiking fevers Sa\tarted on IV antibiotics for this PMH: HTN, ESRD PSH: PD catheter, permacath ALL: NKDA Social: denies smoking, ETOH, and no substances Review of Systems - Review of Systems All systems: reviewed and no additional remarkable complaints except - Constitutional Constitutional: As Per HPI, Anorexia. absent: Fever - EENT Eyes: absent: As Per HPI, Blind Spots, Blurred Vision, Change in Vision, Decreased Night Vision, Diplopia, Discharge, Dry Eye, Exophthalmos, Floaters, Irritation, Itchy Eyes, Loss of Peripheral Vision, Pain, Photophobia, Requires Corrective Lenses, Sees Flashes, Spots in Vision, Tunnel Vision, Other Visual Disturbances, Loss of Vision, Other Ears: absent: As Per HPI, Decreased Hearing, Ear Discharge, Ear Pain, Tinnitus, Abnormal Hearing, Disequilibrium, Dizziness, Other Nose/Mouth/Throat: absent: As Per HPI, Epistaxis, Nasal Congestion, Nasal Discharge, Nasal Obstruction, Nasal Trauma, Nose Pain, Post Nasal Drip, Sinus Pain, Sinus Pressure, Bleeding Gums, Change in Voice, Dental Pain, Dry Mouth, Dysphagia, Halitosis, Hoarsness, Lip Swelling, Mouth Lesions, Mouth Pain, Odynophagia, Sore Throat, Throat Swelling, Tongue Swelling, Facial Pain, Neck Pain, Neck Mass, Other - Breasts Breasts: absent: As Per HPI, Change in Shape, Mass, Pain, Nipple Discharge, Nipple Inversion, Skin Changes, Swelling, Other - Cardiovascular Cardiovascular: absent: As Per HPI, Acrocyanosis, Chest Pain, Chest Pain at Rest, Chest Pain with Activity, Claudication, Diaphoresis, Dyspnea, Dyspnea on Exertion, Edema, Irregular Heart Rhythm, Pain Radiating to Arm/Neck/Jaw, Leg Abilio ma, Leg Ulcers, Lightheadedness, Orthopnea, Palpitations, Paroxysmal Nocturnal Dyspnea, Pedal Edema, Radiating Pain, Rapid Heart Rate, Slow Heart Rate, Syncope, Other - Respiratory Respiratory: absent: As Per HPI, Cough, Dyspnea, Hemoptysis, Dyspnea on Exertion , Wheezing, Snoring, Stridor, Pain on Inspiration, Chest Congestion, Excessive Mucous Production, Change in Mucous Color, Pain with Coughing, Other - Gastrointestinal Gastrointestinal: absent: As Per HPI - Genitourinary Genitourinary: As Per HPI - Reproductive: Female Reproductive:Female: absent: As Per HPI, Amenorrhea, Amenorrhea/ Control, Currently Menstual, Cycle <21 Days, Cycle >35 Days, Cycle Variable, Menses 1-7 Days, Menses >/= 8 Days, Menses Variable, Cycle > 4 Weeks Between, No Menses for 6 Months, Heavy Menses, Light Menses, Normal Menses, Spotting Between Cycles, S/P Hysterectomy, Menopausal, Post Menopausal, Premenarche, Abnormal Vaginal Bleeding, Dysmenorrhea, Dyspareunia, Genital Lesions, Genital Pruritis, Pelvic Pain, Prolapse Symptoms, Sexual Dysfunction, Vaginal Discharge, Vaginal Dryness, Vaginal Odor, Vaginal Pruritis, Other - Menstruation Menstruation: absent: As Per HPI, Amenorrhea, Amenorrhea/ Control, Currently Menstual, Cycle <21 Days, Cycle >35 Days, Cycle Variable, Menses 1-7 Days, Menses >/= 8 Days, Menses Variable, Cycle > 4 Weeks Between, No Menses for 6 Months, Heavy Menses, Light Menses, Normal Menses, Spotting Between Cycles, S/P Hysterectomy, Menopausal, Post Menopausal, Premenarche, Abnormal Vaginal Bleeding, Dysmenorrhea, Other - Musculoskeletal Musculoskeletal: absent: As Per HPI, Abnormal Gait, Arthralgias, Atrophy, Back Pain, Deformity, Joint Swelling, Limited Range of Motion, Loss of Height, Muscle Cramps, Muscle Weakness, Myalgias, Neck Pain, Numbness, Radiating Pain into Limb, Stiffness, Tingling, Other - Integumentary Integumentary: absent: As Per HPI, Acne, Alopecia, Bleeding Lesions, Change in Hair, Change in Nails, Change in Pigmentation, Changing Lesions, Dry Skin, Erythema, Furuncle, Hirsutism, Lesions, New Lesions, Non-Healing Lesions, Photosensitivity, Pruritus, Rash, Skin Pain, Skin Ulcer, Sores, Striae, Swelling, Unusual Bruising, Wounds, Jaundice, Other - Neurological Neurological: absent: As Per HPI, Abnormal Gait, Abnormal Hearing, Abnormal Movements, Abnormal Speech, Behavioral Changes, Burning Sensations, Confusion, Convulsions, Disequilibrium, Dizziness, Numbness, Focal Weakness, Frequent Falls, Headaches, Lack of Coordination, Loss of Vision, Memory Loss, Paresthesias, Radicular Pain, Restless Legs, Sensory Deficit, Syncope, Tingling, Tremor, Vertigo, Weakness, Other Visual Disturbances, Other - Psychiatric Psychiatric: absent: As Per HPI, Abnormal Sleep Pattern, Anhedonia, Anxiety, Auditory Hallucinations, Behavioral Changes, Change in Appetite, Change in Libido, Confusion, Depression, Difficulty Concentrating, Hallucinations, Homicidal Ideation, Hopelessness, Irritability, Memory Loss, Mood Swings, Panic Attacks, Paranoia, Suicidal Ideation, Visual Hallucinations, Tactile Hallucinations, Other - Endocrine Endocrine: As Per HPI Past Patient History - Infectious Disease Hx of Infectious Diseases: None - Tetanus Immunizations Tetanus Immunization: Unknown - Past Medical History & Family History Past Medical History?: Yes - Past Social History Smoking Status: Never Smoked Alcohol: None Drugs: Denies Home Situation {Lives}: With Family - CARDIAC Hx Cardiac Disorders: Yes Hx Hypertension: Yes - PULMONARY Hx Respiratory Disorders: No - NEUROLOGICAL Hx Neurological Disorder: No - HEENT Hx HEENT Problems: No - RENAL Hx Chronic Kidney Disease: No - ENDOCRINE/METABOLIC Hx Endocrine Disorders: No - HEMATOLOGICAL/ONCOLOGICAL Hx Blood Disorders: No Hx Blood Transfusions: No - INTEGUMENTARY Hx Dermatological Problems: No - MUSCULOSKELETAL/RHEUMATOLOGICAL Hx Falls: No - GASTROINTESTINAL Hx Gastrointestinal Disorders: No - GENITOURINARY/GYNECOLOGICAL Hx Genitourinary Disorders: No - PSYCHIATRIC Hx Psychophysiologic Disorder: No Hx Substance Use: No - SURGICAL HISTORY Hx Surgeries: No - ANESTHESIA Hx Anesthesia: No Meds Allergies/Adverse Reactions: Allergies Allergy/AdvReac Type Severity Reaction Status Date / Time No Known Allergies Allergy Verified 04/04/18 18:33 - Medications Medications: Current Medications Acetaminophen (Tylenol 325mg Tab) 650 mg PO Q6 PRN PRN Reason: Fever >100.4 F Last Admin: 04/09/18 05:53 Dose: 650 mg Amlodipine Besylate (Norvasc) 5 mg PO DAILY [facility] Last Admin: 04/10/18 10:10 Dose: 5 mg Epoetin Milton (Procrit) 10,000 unit IV TTS [facility] Last Admin: 04/09/18 16:08 Dose: 10,000 unit Hydromorphone HCl (Dilaudid) 0.5 mg IVP Q15M PRN PRN Reason: Pain, severe (8-10) Cefepime HCl (Maxipime Iv 1 Gm Premix) 1 gm in 50 mls @ 100 mls/hr IVPB Q24H [facility]; Protocol Last Admin: 04/10/18 15:32 Dose: 100 mls/hr Loperamide HCl (Imodium) 2 mg PO PRN PRN PRN Reason: Diarrhea Physical Exam - Constitutional Appears: Non-toxic, No Acute Distress, Chronically Ill - Head Exam Head Exam: NORMOCEPHALIC - Eye Exam Eye Exam: absent: Scleral icterus Pupil Exam: NORMAL ACCOMODATION - ENT Exam ENT Exam: Mucous Membranes Dry, Normal External Ear Exam, Normal Oropharynx - Neck Exam Neck exam: Negative for: Lymphadenopathy - Respiratory Exam Respiratory Exam: Decreased Breath Sounds, Prolonged Expiratory Phase, Rhonchi - Cardiovascular Exam Cardiovascular Exam: REGULAR RHYTHM, +S1, +S2 - GI/Abdominal Exam GI & Abdominal Exam: Diminished Bowel Sounds, Distended, Guarding, Soft, Tenderness. absent: Rebound, Rigid - Rectal Exam Rectal Exam: Deferred - Exam Exam: NORMAL INSPECTION - Extremities Exam Extremities exam: Negative for: calf tenderness, pedal edema - Back Exam Back exam: absent: CVA tenderness (L), CVA tenderness (R) - Neurological Exam Neurological exam: Alert, CN II-XII Intact, Oriented x3, Reflexes Normal - Psychiatric Exam Psychiatric exam: Depressed - Skin Skin Exam: Dry, Intact Results - Vital Signs Recent Vital Signs: Last Vital Signs Temp 98.7 F 04/10/18 16:36 Pulse 100 H 04/10/18 16:00 Resp 18 04/10/18 16:00 BP 123/72 04/10/18 16:00 Pulse Ox 96 04/10/18 16:00 - Labs Result Diagrams: 04/10/18 08:31 04/10/18 08:31 Labs: Laboratory Results - last 24 hr 04/09/18 04/09/18 04/10/18 16:45 21:17 08:31 WBC 4.9 RBC 2.28 L Hgb 7.2 L Hct 22.0 L MCV 96.9 MCH 31.6 H MCHC 32.7 L RDW 14.2 Plt Count 214 MPV 7.7 Neut % (Auto) 74.6 Lymph % (Auto) 11.4 L [place] % (Auto) 9.9 Eos % (Auto) 3.7 Baso % (Auto) 0.4 Neut # (Auto) 3.6 Lymph # (Auto) 0.6 L [place] # (Auto) 0.5 Eos # (Auto) 0.2 Baso # (Auto) 0.0 Sodium Potassium Chloride Carbon Dioxide Anion Gap BUN Creatinine Est GFR ( Amer) Est GFR (Non-Af Amer) POC Glucose (mg/dL) 120 H 107 Random Glucose Calcium 04/10/18 08:31 WBC RBC Hgb Hct MCV MCH MCHC RDW Plt Count MPV Neut % (Auto) Lymph % (Auto) [place] % (Auto) Eos % (Auto) Baso % (Auto) Neut # (Auto) Lymph # (Auto) [place] # (Auto) Eos # (Auto) Baso # (Auto) Sodium 134 Potassium 4.9 Chloride 100 Carbon Dioxide 31 H Anion Gap 9 L BUN 18 H Creatinine 5.4 H Est GFR ( Amer) 10 Est GFR (Non-Af Amer) 8 POC Glucose (mg/dL) Random Glucose 86 Calcium 7.7 L Assessment & Plan (1) Peritoneal dialysis catheter dysfunction Status: Acute (2) Pleural effusion Status: Acute (3) Diabetes Status: Chronic (4) HTN (hypertension) Status: Chronic (5) Renal failure Status: Chronic (6) ESRD (end stage renal disease) on dialysis Status: Acute (7) Fever Status: Acute - Assessment and Plan (Free Text) Plan: fever post op s/p PD catheter removal r/o early pneumonia r/o sepsis await cultures of blood cont IV antibiotics
--- NOTE | 2018-04-11 07:04 | CP.PCM.PN ---
Subjective - Date & Time of Evaluation Date of Evaluation: 04/11/18 Time of Evaluation: 07:00 - Subjective Subjective: Surgery Progress note. Dr. Rodriguez Pt seen and examined at bedside. No acute events overnight. No N/V/D. no furter abdominal pain. No new complaints. Denies CP/SOB. Wants to be discharged home. Objective - Vital Signs/Intake and Output Vital Signs (last 24 hours): Temp Pulse Resp BP Pulse Ox 99.0 F 100 H 20 133/81 98 04/11/18 02:36 04/10/18 23:00 04/10/18 23:00 04/10/18 23:00 04/10/18 23:00 - Medications Medications: Current Medications Acetaminophen (Tylenol 325mg Tab) 650 mg PO Q6 PRN PRN Reason: Fever >100.4 F Last Admin: 04/09/18 05:53 Dose: 650 mg Amlodipine Besylate (Norvasc) 5 mg PO DAILY [facility] Last Admin: 04/10/18 10:10 Dose: 5 mg Epoetin Milton (Procrit) 10,000 unit IV TTS [facility] Last Admin: 04/09/18 16:08 Dose: 10,000 unit Hydromorphone HCl (Dilaudid) 0.5 mg IVP Q15M PRN PRN Reason: Pain, severe (8-10) Cefepime HCl (Maxipime Iv 1 Gm Premix) 1 gm in 50 mls @ 100 mls/hr IVPB Q24H [facility]; Protocol Last Admin: 04/10/18 15:32 Dose: 100 mls/hr Loperamide HCl (Imodium) 2 mg PO PRN PRN PRN Reason: Diarrhea - Labs Labs: 04/10/18 08:31 04/10/18 08:31 PT 13.0 SECONDS (9.7-12.2) H 04/05/18 12:30 INR 1.2 04/05/18 12:30 APTT 29 SECONDS (21-34) 04/05/18 12:30 - Constitutional Appears: Well, Non-toxic, No Acute Distress - Head Exam Head Exam: ATRAUMATIC, NORMAL INSPECTION, NORMOCEPHALIC - Eye Exam Eye Exam: EOMI - Respiratory Exam Respiratory Exam: NORMAL BREATHING PATTERN. absent: Accessory Muscle Use, Respiratory Distress - Cardiovascular Exam Cardiovascular Exam: absent: JVD - GI/Abdominal Exam GI & Abdominal Exam: Soft. absent: Distended, Guarding, Rigid, Rebound - Extremities Exam Extremities Exam: Normal Inspection. absent: Calf Tenderness - Neurological Exam Neurological Exam: Alert, Awake, Oriented x3 - Psychiatric Exam Psychiatric exam: Normal Affect, Normal Mood Assessment and Plan - Assessment and Plan (Free Text) Assessment: 47yo F s/p permacath placement, PD catheter removal, exploratory laparoscopy with lysis of adhesions POD 3. Left brachiocephalic fistula POD 2. Plan: - Abd exam benign - No further acute surgical intervention warranted at this time - Encourage ambulation and incentive spirometry - continue Abx as per ID team Further recs as per Dr. Jennifer Coats PGY2 Surgery
--- NOTE | 2018-04-11 08:43 | CP.PCM.PN ---
Subjective - Date & Time of Evaluation Date of Evaluation: 04/11/18 Time of Evaluation: 08:15 - Subjective Subjective: Pt feels well, no more fever/ abd pain; good appetite No CP, no SOB, no edema, no cough Objective - Vital Signs/Intake and Output Vital Signs (last 24 hours): Temp Pulse Resp BP Pulse Ox 98.5 F 93 H 20 115/73 99 04/11/18 08:00 04/11/18 08:00 04/11/18 08:00 04/11/18 08:00 04/11/18 08:00 - Medications Medications: Current Medications Acetaminophen (Tylenol 325mg Tab) 650 mg PO Q6 PRN PRN Reason: Fever >100.4 F Last Admin: 04/09/18 05:53 Dose: 650 mg Amlodipine Besylate (Norvasc) 5 mg PO DAILY [facility] Last Admin: 04/10/18 10:10 Dose: 5 mg Epoetin Milton (Procrit) 10,000 unit IV TTS [facility] Last Admin: 04/09/18 16:08 Dose: 10,000 unit Hydromorphone HCl (Dilaudid) 0.5 mg IVP Q15M PRN PRN Reason: Pain, severe (8-10) Cefepime HCl (Maxipime Iv 1 Gm Premix) 1 gm in 50 mls @ 100 mls/hr IVPB Q24H [facility]; Protocol Last Admin: 04/10/18 15:32 Dose: 100 mls/hr Loperamide HCl (Imodium) 2 mg PO PRN PRN PRN Reason: Diarrhea - Labs Labs: 04/10/18 08:31 04/10/18 08:31 PT 13.0 SECONDS (9.7-12.2) H 04/05/18 12:30 INR 1.2 04/05/18 12:30 APTT 29 SECONDS (21-34) 04/05/18 12:30 - Constitutional Appears: No Acute Distress - Eye Exam Eye Exam: Normal appearance - ENT Exam ENT Exam: Mucous Membranes Moist, Normal Oropharynx - Neck Exam Neck Exam: Full ROM. absent: Lymphadenopathy - Respiratory Exam Respiratory Exam: Clear to Ausculation Bilateral. absent: Rales, Rhonchi, Wheezes - Cardiovascular Exam Cardiovascular Exam: REGULAR RHYTHM, +S1, +S2. absent: Gallop, JVD - GI/Abdominal Exam GI & Abdominal Exam: Soft. absent: Tenderness, Mass - Extremities Exam Extremities Exam: Full ROM, Normal Capillary Refill. absent: Calf Tenderness, Joint Swelling, Pedal Edema Assessment and Plan - Assessment and Plan (Free Text) Assessment: HTN, ESRD w/ pleural effusion Cont meds/ awit HD placement
--- NOTE | 2018-04-11 12:03 | CP.PCM.PN ---
Subjective - Date & Time of Evaluation Date of Evaluation: 04/11/18 Time of Evaluation: 09:00 - Subjective Subjective: afeb on IV antibiotics Objective - Vital Signs/Intake and Output Vital Signs (last 24 hours): Temp Pulse Resp BP Pulse Ox 98.5 F 93 H 20 115/73 99 04/11/18 08:00 04/11/18 08:00 04/11/18 08:00 04/11/18 08:00 04/11/18 08:00 - Medications Medications: Current Medications Acetaminophen (Tylenol 325mg Tab) 650 mg PO Q6 PRN PRN Reason: Fever >100.4 F Last Admin: 04/09/18 05:53 Dose: 650 mg Amlodipine Besylate (Norvasc) 5 mg PO DAILY [facility] Last Admin: 04/11/18 09:48 Dose: 5 mg Epoetin Milton (Procrit) 10,000 unit IV TTS [facility] Last Admin: 04/09/18 16:08 Dose: 10,000 unit Hydromorphone HCl (Dilaudid) 0.5 mg IVP Q15M PRN PRN Reason: Pain, severe (8-10) Cefepime HCl (Maxipime Iv 1 Gm Premix) 1 gm in 50 mls @ 100 mls/hr IVPB Q24H [facility]; Protocol Last Admin: 04/10/18 15:32 Dose: 100 mls/hr Loperamide HCl (Imodium) 2 mg PO PRN PRN PRN Reason: Diarrhea - Labs Labs: 04/10/18 08:31 04/10/18 08:31 PT 13.0 SECONDS (9.7-12.2) H 04/05/18 12:30 INR 1.2 04/05/18 12:30 APTT 29 SECONDS (21-34) 04/05/18 12:30 - Constitutional Appears: Non-toxic, Chronically Ill - Head Exam Head Exam: NORMOCEPHALIC - Eye Exam Eye Exam: absent: Scleral icterus - ENT Exam ENT Exam: Mucous Membranes Dry - Neck Exam Neck Exam: absent: Lymphadenopathy - Respiratory Exam Respiratory Exam: Decreased Breath Sounds - Cardiovascular Exam Cardiovascular Exam: REGULAR RHYTHM, +S1, +S2 - GI/Abdominal Exam GI & Abdominal Exam: Distended - Rectal Exam Rectal Exam: Deferred Assessment and Plan (1) Peritoneal dialysis catheter dysfunction Status: Acute (2) Pleural effusion Status: Acute (3) Diabetes Status: Chronic (4) HTN (hypertension) Status: Chronic (5) Renal failure Status: Chronic (6) ESRD (end stage renal disease) on dialysis Status: Acute (7) Fever Status: Acute
--- NOTE | 2018-04-11 12:20 | CP.PCM.PN ---
Subjective - Date & Time of Evaluation Date of Evaluation: 04/11/18 Time of Evaluation: 12:18 - Subjective Subjective: Feels better s/p AV fistula placement- has good bruit Hg decreased to 7.2, can arrange for blood transfusion next HD Outpt HD spot arranged - TTS Possible discharge post HD - if ok with others Objective - Vital Signs/Intake and Output Vital Signs (last 24 hours): Temp Pulse Resp BP Pulse Ox 98.5 F 93 H 20 115/73 99 04/11/18 08:00 04/11/18 08:00 04/11/18 08:00 04/11/18 08:00 04/11/18 08:00 - Medications Medications: Current Medications Acetaminophen (Tylenol 325mg Tab) 650 mg PO Q6 PRN PRN Reason: Fever >100.4 F Last Admin: 04/09/18 05:53 Dose: 650 mg Amlodipine Besylate (Norvasc) 5 mg PO DAILY [facility] Last Admin: 04/11/18 09:48 Dose: 5 mg Epoetin Milton (Procrit) 10,000 unit IV TTS [facility] Last Admin: 04/09/18 16:08 Dose: 10,000 unit Hydromorphone HCl (Dilaudid) 0.5 mg IVP Q15M PRN PRN Reason: Pain, severe (8-10) Cefepime HCl (Maxipime Iv 1 Gm Premix) 1 gm in 50 mls @ 100 mls/hr IVPB Q24H [facility]; Protocol Last Admin: 04/10/18 15:32 Dose: 100 mls/hr Loperamide HCl (Imodium) 2 mg PO PRN PRN PRN Reason: Diarrhea - Labs Labs: 04/10/18 08:31 04/10/18 08:31 PT 13.0 SECONDS (9.7-12.2) H 04/05/18 12:30 INR 1.2 04/05/18 12:30 APTT 29 SECONDS (21-34) 04/05/18 12:30 - Constitutional Appears: No Acute Distress, Chronically Ill - Head Exam Head Exam: ATRAUMATIC, NORMAL INSPECTION - Eye Exam Eye Exam: EOMI, Normal appearance - Neck Exam Neck Exam: Normal Inspection. absent: Tenderness - Respiratory Exam Respiratory Exam: Clear to Ausculation Bilateral, NORMAL BREATHING PATTERN - Cardiovascular Exam Cardiovascular Exam: REGULAR RHYTHM, +S1 - GI/Abdominal Exam GI & Abdominal Exam: Soft. absent: Tenderness - Extremities Exam Extremities Exam: Normal Inspection. absent: Tenderness - Neurological Exam Neurological Exam: Awake, CN II-XII Intact - Skin Skin Exam: Dry, Warm Assessment and Plan (1) Peritoneal dialysis catheter dysfunction Status: Acute (2) ESRD (end stage renal disease) on dialysis Status: Acute (3) IgA nephropathy Status: Acute (4) Type 2 diabetes mellitus with diabetic nephropathy Status: Acute - Assessment and Plan (Free Text) Plan: Dialysis TTS Transfuse at HD 12/ ferrlecit IV X 1 continue EPO Outpt HD arranged
[2018-04-11] MEDS: Cefepime IV 1 gm in Dextrose 1 GM/50 ML BAG IVPB SCH (17:34)
--- NOTE | 2018-04-11 18:01 | CP.PCM.PN ---
Subjective - Date & Time of Evaluation Date of Evaluation: 04/11/18 Time of Evaluation: 12:00 - Subjective Subjective: Patient seen and examined at bedside, lying down comfortably. Afebrile and in no acute distress. Denies SOB, cough, chest pain. No more fever/abd pain. Negative HIV 1&2 serology. Culture negative after 48 hours on 04/09. Follow up chest x-ray. Objective - Vital Signs/Intake and Output Vital Signs (last 24 hours): Temp Pulse Resp BP Pulse Ox 99.5 F 97 H 20 128/76 96 04/11/18 15:00 04/11/18 16:09 04/11/18 15:00 04/11/18 15:00 04/11/18 15:00 - Medications Medications: Current Medications Acetaminophen (Tylenol 325mg Tab) 650 mg PO Q6 PRN PRN Reason: Fever >100.4 F Last Admin: 04/09/18 05:53 Dose: 650 mg Amlodipine Besylate (Norvasc) 5 mg PO DAILY [facility] Last Admin: 04/11/18 09:48 Dose: 5 mg Epoetin Milton (Procrit) 10,000 unit IV TTS [facility] Last Admin: 04/09/18 16:08 Dose: 10,000 unit Hydromorphone HCl (Dilaudid) 0.5 mg IVP Q15M PRN PRN Reason: Pain, severe (8-10) Cefepime HCl (Maxipime Iv 1 Gm Premix) 1 gm in 50 mls @ 100 mls/hr IVPB Q24H [facility]; Protocol Last Admin: 04/11/18 17:34 Dose: 100 mls/hr Ferric Sodium Gluconate Complex 125 mg/ Sodium Chloride 110 mls @ 110 mls/hr IVPB DAILY [facility] Stop: 04/20/18 10:01 Loperamide HCl (Imodium) 2 mg PO PRN PRN PRN Reason: Diarrhea - Labs Labs: 04/10/18 08:31 04/10/18 08:31 PT 13.0 SECONDS (9.7-12.2) H 04/05/18 12:30 INR 1.2 04/05/18 12:30 APTT 29 SECONDS (21-34) 04/05/18 12:30 Assessment and Plan (1) Pleural effusion Status: Acute
--- NOTE | 2018-04-12 08:43 | CP.PCM.PN ---
Subjective - Date & Time of Evaluation Date of Evaluation: 04/12/18 Time of Evaluation: 08:25 - Subjective Subjective: Pt no complain; no motre fever nor abd pain No CP, no SOB, no edema, no cough Objective - Vital Signs/Intake and Output Vital Signs (last 24 hours): Temp Pulse Resp BP Pulse Ox 97.6 F 90 18 123/77 100 04/12/18 07:00 04/12/18 07:00 04/12/18 07:00 04/12/18 07:00 04/12/18 07:00 - Medications Medications: Current Medications Acetaminophen (Tylenol 325mg Tab) 650 mg PO Q6 PRN PRN Reason: Fever >100.4 F Last Admin: 04/09/18 05:53 Dose: 650 mg Amlodipine Besylate (Norvasc) 5 mg PO DAILY [facility] Last Admin: 04/11/18 09:48 Dose: 5 mg Epoetin Milton (Procrit) 10,000 unit IV TTS [facility] Last Admin: 04/09/18 16:08 Dose: 10,000 unit Hydromorphone HCl (Dilaudid) 0.5 mg IVP Q15M PRN PRN Reason: Pain, severe (8-10) Cefepime HCl (Maxipime Iv 1 Gm Premix) 1 gm in 50 mls @ 100 mls/hr IVPB Q24H [facility]; Protocol Last Admin: 04/11/18 17:34 Dose: 100 mls/hr Ferric Sodium Gluconate Complex 125 mg/ Sodium Chloride 110 mls @ 110 mls/hr IVPB DAILY [facility] Stop: 04/20/18 10:01 Loperamide HCl (Imodium) 2 mg PO PRN PRN PRN Reason: Diarrhea - Labs Labs: 04/10/18 08:31 04/10/18 08:31 PT 13.0 SECONDS (9.7-12.2) H 04/05/18 12:30 INR 1.2 04/05/18 12:30 APTT 29 SECONDS (21-34) 04/05/18 12:30 - Constitutional Appears: No Acute Distress - Eye Exam Eye Exam: Normal appearance - ENT Exam ENT Exam: Mucous Membranes Moist - Neck Exam Neck Exam: Full ROM. absent: Lymphadenopathy, Normal Inspection - Respiratory Exam Respiratory Exam: Clear to Ausculation Bilateral. absent: Rales, Rhonchi, Wheezes - Cardiovascular Exam Cardiovascular Exam: REGULAR RHYTHM, +S1, +S2. absent: Gallop, Murmur - GI/Abdominal Exam GI & Abdominal Exam: Soft. absent: Rigid, Tenderness, Rebound - Extremities Exam Extremities Exam: Full ROM, Normal Capillary Refill. absent: Calf Tenderness, Joint Swelling, Pedal Edema Assessment and Plan - Assessment and Plan (Free Text) Assessment: ESRD; HTN w/ pleural effusion Fever likely abd Abscess - conrolled Cont meds/ discharge if [place] as per ID Renal note appreciated
[2018-04-12] MEDS ORDERED: Ferric Sodium Gluconat Complex 125 MG in Sodium Chloride 0.9% 100 ML IVPB SCH (10:00)
[2018-04-12] MEDS ORDERED: Ferric Sodium Gluconat Complex 62.5 mg/5 ml Vial IVPB SCH (10:00)
[2018-04-12] MEDS: Epoetin Alfa 10,000 unit/ml Dialysis IV SCH (11:31)
--- NOTE | 2018-04-12 12:10 | CP.PCM.PN ---
Subjective - Date & Time of Evaluation Date of Evaluation: 04/12/18 Time of Evaluation: 08:00 - Subjective Subjective: improving afebrile nad Objective - Vital Signs/Intake and Output Vital Signs (last 24 hours): Temp Pulse Resp BP Pulse Ox 97.6 F 86 18 135/82 97 04/12/18 11:15 04/12/18 11:15 04/12/18 11:15 04/12/18 11:45 04/12/18 09:45 Intake and Output: 04/12/18 04/12/18 06:59 18:59 Intake Total 276 Balance 276 - Medications Medications: Current Medications Acetaminophen (Tylenol 325mg Tab) 650 mg PO Q6 PRN PRN Reason: Fever >100.4 F Last Admin: 04/09/18 05:53 Dose: 650 mg Amlodipine Besylate (Norvasc) 5 mg PO DAILY [facility] Last Admin: 04/12/18 10:00 Dose: Not Given Epoetin Milton (Procrit) 10,000 unit IV TTS [facility] Last Admin: 04/12/18 11:31 Dose: 10,000 unit Cefepime HCl (Maxipime Iv 1 Gm Premix) 1 gm in 50 mls @ 100 mls/hr IVPB Q24H [facility]; Protocol Last Admin: 04/11/18 17:34 Dose: 100 mls/hr Ferric Sodium Gluconate Complex 125 mg/ Sodium Chloride 110 mls @ 110 mls/hr IVPB DAILY [facility] Stop: 04/20/18 10:01 Last Admin: 04/12/18 11:31 Dose: 110 mls/hr Loperamide HCl (Imodium) 2 mg PO PRN PRN PRN Reason: Diarrhea - Labs Labs: 04/10/18 08:31 04/10/18 08:31 PT 13.0 SECONDS (9.7-12.2) H 04/05/18 12:30 INR 1.2 04/05/18 12:30 APTT 29 SECONDS (21-34) 04/05/18 12:30 - Constitutional Appears: Non-toxic, Chronically Ill - Head Exam Head Exam: NORMOCEPHALIC - Eye Exam Eye Exam: absent: Scleral icterus - ENT Exam ENT Exam: Mucous Membranes Dry - Neck Exam Neck Exam: absent: Lymphadenopathy - Respiratory Exam Respiratory Exam: Decreased Breath Sounds - Cardiovascular Exam Cardiovascular Exam: REGULAR RHYTHM - GI/Abdominal Exam GI & Abdominal Exam: Distended, Soft - Rectal Exam Rectal Exam: Deferred Assessment and Plan (1) Peritoneal dialysis catheter dysfunction Status: Acute (2) Pleural effusion Status: Acute (3) Diabetes Status: Chronic (4) HTN (hypertension) Status: Chronic (5) Renal failure Status: Chronic (6) ESRD (end stage renal disease) on dialysis Status: Acute (7) Fever Status: Acute
--- NOTE | 2018-04-12 12:26 | CP.PCM.PN ---
Subjective - Date & Time of Evaluation Date of Evaluation: 04/12/18 Time of Evaluation: 12:24 - Subjective Subjective: stable on hd no f/c/pain/dizziness/headache/sob/cough/cp/n/v/d/rash Objective - Vital Signs/Intake and Output Vital Signs (last 24 hours): Temp Pulse Resp BP Pulse Ox 97.6 F 86 18 135/82 97 04/12/18 11:15 04/12/18 11:15 04/12/18 11:15 04/12/18 11:45 04/12/18 09:45 Intake and Output: 04/12/18 04/12/18 06:59 18:59 Intake Total 276 Balance 276 - Medications Medications: Current Medications Acetaminophen (Tylenol 325mg Tab) 650 mg PO Q6 PRN PRN Reason: Fever >100.4 F Last Admin: 04/09/18 05:53 Dose: 650 mg Amlodipine Besylate (Norvasc) 5 mg PO DAILY [facility] Last Admin: 04/12/18 10:00 Dose: Not Given Epoetin Milton (Procrit) 10,000 unit IV TTS [facility] Last Admin: 04/12/18 11:31 Dose: 10,000 unit Cefepime HCl (Maxipime Iv 1 Gm Premix) 1 gm in 50 mls @ 100 mls/hr IVPB Q24H [facility]; Protocol Last Admin: 04/11/18 17:34 Dose: 100 mls/hr Ferric Sodium Gluconate Complex 125 mg/ Sodium Chloride 110 mls @ 110 mls/hr IVPB DAILY [facility] Stop: 04/20/18 10:01 Last Admin: 04/12/18 11:31 Dose: 110 mls/hr Loperamide HCl (Imodium) 2 mg PO PRN PRN PRN Reason: Diarrhea - Labs Labs: 04/10/18 08:31 04/10/18 08:31 PT 13.0 SECONDS (9.7-12.2) H 04/05/18 12:30 INR 1.2 04/05/18 12:30 APTT 29 SECONDS (21-34) 04/05/18 12:30 - Constitutional Appears: No Acute Distress, Chronically Ill - Head Exam Head Exam: NORMAL INSPECTION, NORMOCEPHALIC - Eye Exam Eye Exam: Normal appearance, PERRL - ENT Exam ENT Exam: Mucous Membranes Moist, Normal Exam - Neck Exam Neck Exam: Full ROM, Normal Inspection - Respiratory Exam Respiratory Exam: Clear to Ausculation Bilateral, NORMAL BREATHING PATTERN - Cardiovascular Exam Cardiovascular Exam: REGULAR RHYTHM, RRR - GI/Abdominal Exam GI & Abdominal Exam: Distended, Soft - Extremities Exam Extremities Exam: Full ROM, Normal Inspection - Neurological Exam Neurological Exam: Alert, Awake, Oriented x3 - Psychiatric Exam Psychiatric exam: Normal Affect, Normal Mood - Skin Skin Exam: Normal Color, Warm Assessment and Plan (1) Peritoneal dialysis catheter dysfunction Status: Acute (2) ESRD (end stage renal disease) on dialysis Status: Acute (3) Fever Status: Acute (4) Hypertensive chronic kidney disease with stage 5 chronic kidney disease or end stage renal disease Status: Acute - Assessment and Plan (Free Text) Assessment: maintain hd tts blood transfusion w/ hd stable for dc from renal standpoint
[2018-04-12 13:02] VITALS: BP 136/85; PULSE 85; RESP 16; TEMP 97.4; O2SAT 98
[2018-04-12 13:46] LABS: BASO % 0.7 % (0.0-2.0); EOS # 0.2 K/uL (0.0-0.7); EOS % 5.3 % (0.0-4.0); HEMOGLOBIN 8.5 g/dL (11.0-16.0); LYMPH # 0.6 K/uL (1.0-4.3); LYMPH % 12.4 % (20.0-40.0); MEAN CORPUSCULAR HEMOGLOBIN 31.2 pg (27.0-31.0); MEAN CORPUSCULAR HGB CONC 33.5 g/dL (33.0-37.0); MEAN PLATELET VOLUME 8.5 fL (7.2-11.7); MONO # 0.5 K/uL (0.0-0.8); MONO % 11.1 % (0.0-10.0); NEUT # 3.3 K/uL (1.8-7.0); NEUT % 70.5 % (50.0-75.0); RBC 2.72 Mil/uL (3.80-5.20); RED CELL DISTRIBUTION WIDTH 15.9 % (11.5-14.5); WHITE BLOOD COUNT 4.6 K/uL (4.8-10.8)
[2018-04-12 13:54] LABS: MEAN CELL VOLUME 93.2 fL (81.0-99.0)
== END 2018-04-12 14:43 | disposition home or self-care (01) | DRG 907 ==
LOC: C.ER 15:36 → INTOOBSV 23:20 → UNDOADMOB 23:20 → C.9E 23:20 → OBSVTOIN 23:20 → C.9E 04-05 14:28 → C.3T 04-05 14:28 → C.5S 04-06 21:50 → C.3T 04-07 12:01 → OBSVTOIN 04-07 12:01 → C.5S 04-07 12:01
PROVIDERS: ADMIT Internal Medicine; ATTEND Internal Medicine
PROC: 0DNW4ZZ Release Peritoneum, Percutaneous Endoscopic Approach (ICD-10-PCS; principal; 2018-04-07)
PROC: 06PY33Z Removal of Infusion Device from Lower Vein, Percutaneous Approach (ICD-10-PCS; 2018-04-07)
PROC: 02HV33Z Insertion of Infusion Device into Superior Vena Cava, Percutaneous Approach (ICD-10-PCS; 2018-04-07)
PROC: 5A1D70Z Performance of Urinary Filtration, Intermittent, Less than 6 Hours Per Day (ICD-10-PCS; 2018-04-07)
PROC: 03180AD Bypass Left Brachial Artery to Upper Arm Vein with Autologous Arterial Tissue, Open Approach (ICD-10-PCS; 2018-04-08)
DX: T85.611A Breakdown (mechanical) of intraperitoneal dialysis catheter, initial encounter (principal); N18.6 End stage renal disease; I12.0 Hypertensive chronic kidney disease with stage 5 chronic kidney disease or end stage renal disease; R18.8 Other ascites; J90 Pleural effusion, not elsewhere classified; Y84.1 Kidney dialysis as the cause of abnormal reaction of the patient, or of later complication, without mention of misadventure at the time of the procedure; E11.21 Type 2 diabetes mellitus with diabetic nephropathy; E11.22 Type 2 diabetes mellitus with diabetic chronic kidney disease; Z99.2 Dependence on renal dialysis; K66.0 Peritoneal adhesions (postprocedural) (postinfection); R50.82 Postprocedural fever

== ENCOUNTER 2018-06-09 11:18 | Inpatient (IN) | payer OTHER ==
[2018-06-09 11:18] VITALS: BMI 31.2
--- NOTE | 2018-06-09 12:16 | C.PDOC ---
History Of Present Illness 47 y/o female comes in to ED for cough for the past month, with SOB for 2 days. Patient states her cough has worsened since. Patient is on dialysis, didnt go today. She reports of normal urine output and denies fever, vomiting, diarrhea, throat pain, dysuria, back pain, abdominal pain, leg swelling, or other symptoms. Time Seen by Provider: 06/09/18 11:49 Chief Complaint (Nursing): Shortness Of Breath History Per: Patient History/Exam Limitations: no limitations Onset/Duration Of Symptoms: Days Current Symptoms Are (Timing): Still Present Past Medical History Reviewed: Historical Data, Nursing Documentation, Vital Signs Vital Signs: Last Vital Signs Temp 97.6 F 06/09/18 11:24 Pulse 88 06/09/18 11:24 Resp 18 06/09/18 11:37 BP 159/87 H 06/09/18 11:24 Pulse Ox 88 L 06/09/18 11:24 - Medical History PMH: HTN, End Stage Renal Disease Denies: Chronic Kidney Disease - [facility] Procedures (04/07/18) BYPASS L BRACH ART TO UP ARM VEIN W AUTOL ART, OPEN (04/07/18) INSERT OF INFUSION DEV INTO PERITON CAV, PERC ENDO APPROACH (05/27/17) INSERTION OF INFUSION DEV INTO SUP VENA CAVA, PERC APPROACH (04/07/18) RELEASE PERITONEUM, PERCUTANEOUS ENDOSCOPIC APPROACH (04/07/18) REMOVAL OF INFUSION DEVICE FROM LOWER VEIN, PERC APPROACH (04/07/18) Family History: States: No Known Family Hx - Social History Hx Alcohol Use: No Hx Substance Use: No - Immunization History Hx Tetanus Toxoid Vaccination: No Hx Influenza Vaccination: Yes Hx Pneumococcal Vaccination: No Review Of Systems Except As Marked, All Systems Reviewed And Found Negative. Constitutional: Negative for: Fever, Chills Cardiovascular: Negative for: Chest Pain Respiratory: Positive for: Cough, Shortness of Breath Gastrointestinal: Negative for: Nausea, Vomiting, Abdominal Pain, Diarrhea Genitourinary: Negative for: Dysuria, Hematuria Skin: Negative for: Rash Physical Exam - Physical Exam Appears: Non-toxic, Chronically Ill, Other (thin) Skin: Warm, Dry Head: Atraumatic, Normacephalic Eye(s): bilateral: Normal Inspection Oral Mucosa: Moist Neck: Supple Cardiovascular: Rhythm Regular, No Murmur Respiratory: Decreased Breath Sounds, No Rales, No Rhonchi, No Wheezing Gastrointestinal/Abdominal: Soft, No Tenderness Back: Normal Inspection, No CVA Tenderness Extremity: Bilateral: Atraumatic, Normal Color And Temperature, Normal ROM Neurological/Psych: Oriented x3, Normal Speech ED Course And Treatment - Laboratory Results Result Diagrams: 06/09/18 12:33 06/09/18 12:33 O2 Sat by Pulse Oximetry: 88 (RA) Pulse Ox Interpretation: Abnormal Interpretation Of Abnormal: Patient is 93% on 3L NC Medical Decision Making Medical Decision Making: Plan: --EKG --Labs --Chest XR --Flu swab CXR is found to have large pleural effusion. Case was discussed with Dr. Carrera. Pulm consult placed with Dr. 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 - Scribe Statement The provider has reviewed the documentation as recorded by the Scribkory Arzola All medical record entries made by the Geenaibkory were at my direction and personally dictated by me. I have reviewed the chart and agree that the record accurately reflects my personal performance of the history, physical exam, medical decision making, and the department course for this patient. I have also personally directed, reviewed, and agree with the discharge instructions and disposition.
[2018-06-09 12:45] LABS: BASO % 0.5 % (0.0-2.0); EOS # 0.2 K/uL (0.0-0.7); EOS % 3.4 % (0.0-4.0); HEMOGLOBIN 9.8 g/dL (11.0-16.0); LYMPH # 1.2 K/uL (1.0-4.3); LYMPH % 21.6 % (20.0-40.0); MEAN CELL VOLUME 98.6 fL (81.0-99.0); MEAN CORPUSCULAR HEMOGLOBIN 31.9 pg (27.0-31.0); MEAN CORPUSCULAR HGB CONC 32.3 g/dL (33.0-37.0); MONO # 0.5 K/uL (0.0-0.8); MONO % 8.6 % (0.0-10.0); NEUT # 3.7 K/uL (1.8-7.0); NEUT % 65.9 % (50.0-75.0); RBC 3.07 Mil/uL (3.80-5.20); RED CELL DISTRIBUTION WIDTH 16.1 % (11.5-14.5); WHITE BLOOD COUNT 5.7 K/uL (4.8-10.8)
[2018-06-09 13:09] LABS: ALB/GLOB RATIO 0.9 (1.0-2.1); ALBUMIN 4.2 g/dL (3.5-5.0); ALT/SGPT < 6 U/L (9-52); AST/SGOT 14 U/L (14-36); B-TYPE NATRIURETIC PEPTIDE 19400 pg/mL (0-450); BLOOD UREA NITROGEN 37 mg/dL (7-17); GFR NON-AFRICAN AMERICAN 5
[2018-06-09] MEDS ORDERED: Vancomycin 1 GM 1 GM/250 ML BAG IV STA (13:22)
[2018-06-09] MEDS ORDERED: Piperacillin/Tazobact 3.375 gm 100 ML IV STA (13:22)
[2018-06-09] MEDS ORDERED: Piperacillin/Tazobact 3.375 gm 100 ML IVPB ONE (13:36)
--- NOTE | 2018-06-09 14:20 | RAD ---
Date of service: 06/09/2018 PROCEDURE: CHEST RADIOGRAPH, 1 VIEW HISTORY: SOB, cough COMPARISON: 04/06/2018 FINDINGS: LUNGS: Interval increased bilateral pleural effusions left slightly greater than 1/2 the height of the left hemithorax now. Right slightly less than left. Bibasilar compressive atelectasis inferred. Concomitant underlying infiltrates not excluded. PLEURA: No pneumothorax seen. Bilateral pleural effusions as above CARDIOVASCULAR: There is presence of aortic atherosclerotic calcification on x-ray. Inferred cardiomegaly Mild concomitant pulmonary venous congestion suspect right PermCath inserted internal jugular vein approach tip right atrium-position unchanged. OSSEOUS STRUCTURES: Thoraco lumbar spondylosis. VISUALIZED UPPER ABDOMEN: Normal. OTHER FINDINGS: None. IMPRESSION: Interval increased bilateral pleural effusions that on the left is large that on the right is moderate. Bibasilar compressive atelectasis. Right PermCath tip right atrium as before. Other findings as above.
--- NOTE | 2018-06-09 17:53 | CP.PCM.CON ---
History of Present Illness - History of Present Illness History of Present Illness: reason for consultation: shortness of breath 47-year-old female with history of hypertension and end-stage renal disease on hemodialysis presented to emergency room with cough and shortness of breath. Chest x-ray done in the emergency room showed large left pleural effusion. Patient denies fever chills, denies chest pain. Patient seen during hemodialysis and in no respiratory distress . Review of Systems - Review of Systems All systems: reviewed and no additional remarkable complaints except (cough and shortness of breath) Past Patient History - Infectious Disease Hx of Infectious Diseases: None - Tetanus Immunizations Tetanus Immunization: Unknown - Past Medical History & Family History Past Medical History?: Yes - Past Social History Smoking Status: Never Smoked - CARDIAC Hx Hypertension: Yes - PULMONARY Hx Respiratory Disorders: No - NEUROLOGICAL Hx Neurological Disorder: No - HEENT Hx HEENT Problems: No - RENAL Hx Chronic Kidney Disease: No - ENDOCRINE/METABOLIC Hx Endocrine Disorders: No - HEMATOLOGICAL/ONCOLOGICAL Hx Blood Disorders: No Hx Blood Transfusions: No - INTEGUMENTARY Hx Dermatological Problems: No - MUSCULOSKELETAL/RHEUMATOLOGICAL Hx Falls: No - GASTROINTESTINAL Hx Gastrointestinal Disorders: No - GENITOURINARY/GYNECOLOGICAL Hx Genitourinary Disorders: No - PSYCHIATRIC Hx Substance Use: No - SURGICAL HISTORY Hx Surgeries: No - ANESTHESIA Hx Anesthesia: No Meds Allergies/Adverse Reactions: Allergies Allergy/AdvReac Type Severity Reaction Status Date / Time No Known Allergies Allergy Verified 06/09/18 11:27 - Medications Medications: Current Medications Amlodipine Besylate (Norvasc) 5 mg PO DAILY [facility] Heparin Sodium (Porcine) (Heparin) 3,700 units IVP TTS [facility] Physical Exam - Head Exam Head Exam: ATRAUMATIC, NORMOCEPHALIC - ENT Exam ENT Exam: Mucous Membranes Moist - Neck Exam Neck exam: Positive for: Normal Inspection - Respiratory Exam Respiratory Exam: Decreased Breath Sounds - Cardiovascular Exam Cardiovascular Exam: REGULAR RHYTHM Results - Vital Signs Recent Vital Signs: Last Vital Signs Temp 97.6 F 06/09/18 15:18 Pulse 88 06/09/18 16:13 Resp 16 06/09/18 16:13 BP 173/90 H 06/09/18 16:13 Pulse Ox 98 06/09/18 14:21 - Labs Result Diagrams: 06/09/18 12:33 06/09/18 12:33 Labs: Laboratory Results - last 24 hr 06/09/18 06/09/18 06/09/18 12:33 12:33 12:33 WBC 5.7 RBC 3.07 L Hgb 9.8 L Hct 30.3 L MCV 98.6 D MCH 31.9 H MCHC 32.3 L RDW 16.1 H Plt Count 288 MPV 8.0 Neut % (Auto) 65.9 Lymph % (Auto) 21.6 Mccone % (Auto) 8.6 Eos % (Auto) 3.4 Baso % (Auto) 0.5 Neut # (Auto) 3.7 Lymph # (Auto) 1.2 Mccone # (Auto) 0.5 Eos # (Auto) 0.2 Baso # (Auto) 0.0 Sodium 139 Potassium 4.7 Chloride 98 Carbon Dioxide 31 H Anion Gap 15 BUN 37 H Creatinine 9.0 H* D Est GFR ( Amer) 6 Est GFR (Non-Af Amer) 5 Random Glucose 97 Calcium 12.0 H Total Bilirubin 0.7 AST 14 D ALT < 6 L D Alkaline Phosphatase 57 Troponin I 0.0140 NT-Pro-B Natriuret Pep 85706 H Total Protein 9.1 H Albumin 4.2 Globulin 4.9 H Albumin/Globulin Ratio 0.9 L Influenza Typ A,B (EIA) Negative for flu a/b Assessment & Plan (1) Pleural effusion Status: Acute Comment: large left pleural effusion. Thoracentesis and fluid analysis. Continue hemodialysis (2) ESRD (end stage renal disease) on dialysis Status: Acute
--- NOTE | 2018-06-10 08:07 | CP.PCM.HP ---
History of Present Illness - History of Present Illness History of Present Illness: CC: Short of breath 47 y/o female with HTN and ESRD. Patient admitted 1-2 moths ago for non functioning PD. Patient seen in clinic g for ? bronchitis and place on inhaler. Patient had increasing shortness of breath * & dry cough x 1 wk. She miss her HD and got more SOB. Pt went to ER and was admitted for pleural effusion. Present on Admission - Present on Admission Any Indicators Present on Admission: Yes History of DVT/PE: No History of Uncontrolled Diabetes: No Urinary Catheter: No Decubitus Ulcer Present: No Review of Systems - Review of Systems Systems not reviewed;Unavailable: Acuity of Condition - Constitutional Constitutional: absent: Daytime Sleepiness, Headache, Night Sweats, Sleep Apnea - EENT Eyes: absent: Exophthalmos, Pain, Spots in Vision Ears: absent: Ear Discharge, Disequilibrium, Dizziness Nose/Mouth/Throat: absent: Nasal Discharge, Post Nasal Drip, Change in Voice - Breasts Breasts: absent: Mass - Cardiovascular Cardiovascular: Dyspnea. absent: Chest Pain, Diaphoresis, Edema, Irregular Heart Rhythm, Leg Edema, Leg Ulcers, Orthopnea, Palpitations - Gastrointestinal Gastrointestinal: absent: Abdominal Pain, Bloating, Dysphagia, Heartburn, Loose Stools, Nausea - Musculoskeletal Musculoskeletal: absent: Abnormal Gait, Arthralgias, Atrophy, Back Pain, Muscle Weakness, Numbness - Integumentary Integumentary: absent: Changing Lesions, Skin Pain, Swelling - Neurological Neurological: absent: Abnormal Gait, Burning Sensations, Focal Weakness, Radicular Pain, Weakness Past Patient History - Infectious Disease Hx of Infectious Diseases: None - Tetanus Immunizations Tetanus Immunization: Unknown - Past Medical History & Family History Past Medical History?: Yes - Past Social History Smoking Status: Never Smoked - CARDIAC Hx Hypertension: Yes - PULMONARY Hx Respiratory Disorders: No - NEUROLOGICAL Hx Neurological Disorder: No - HEENT Hx HEENT Problems: No - RENAL Hx Chronic Kidney Disease: Yes Hx Dialysis: Yes Type of Dialysis Access: right perma cath Hx Kidney Stones: No Hx Neurogenic Bladder: No Hx Renal Failure: Yes Other/Comment: HD --[facility] [place] - ENDOCRINE/METABOLIC Hx Endocrine Disorders: No - HEMATOLOGICAL/ONCOLOGICAL Hx Blood Disorders: No Hx Blood Transfusions: Yes (Apr 2018) - INTEGUMENTARY Hx Dermatological Problems: No - MUSCULOSKELETAL/RHEUMATOLOGICAL Hx Musculoskeletal Disorders: No Hx Falls: No - GASTROINTESTINAL Hx Gastrointestinal Disorders: No - GENITOURINARY/GYNECOLOGICAL Hx Genitourinary Disorders: No - PSYCHIATRIC Hx Substance Use: No - SURGICAL HISTORY Hx Surgeries: No - ANESTHESIA Hx Anesthesia: No Hx Anesthesia Reactions: No Hx Malignant Hyperthermia: No Has any member of the family had a problem w/ anesthesia?: No Meds Allergies/Adverse Reactions: Allergies Allergy/AdvReac Type Severity Reaction Status Date / Time No Known Allergies Allergy Verified 06/09/18 11:27 Physical Exam - Constitutional Appears: Well - Eye Exam Eye Exam: Normal appearance - ENT Exam ENT Exam: Mucous Membranes Moist - Neck Exam Neck exam: Positive for: Full Rom. Negative for: Lymphadenopathy, Normal Inspection - Respiratory Exam Respiratory Exam: Decreased Breath Sounds. absent: Rales, Rhonchi, Wheezes - Cardiovascular Exam Cardiovascular Exam: +S1, +S2. absent: Gallop, REGULAR RHYTHM, JVD - GI/Abdominal Exam GI & Abdominal Exam: Soft. absent: Tenderness - Extremities Exam Extremities exam: Positive for: full ROM, normal capillary refill. Negative for: calf tenderness, joint swelling Results - Vital Signs Recent Vital Signs: Last Vital Signs Temp 98.3 F 06/09/18 23:25 Pulse 101 H 06/09/18 23:25 Resp 20 06/09/18 23:25 BP 131/88 06/09/18 23:25 Pulse Ox 99 06/09/18 23:25 - Labs Result Diagrams: 06/09/18 12:33 06/09/18 12:33 Labs: Laboratory Results - last 24 hr 06/09/18 06/09/18 06/09/18 12:33 12:33 12:33 WBC 5.7 RBC 3.07 L Hgb 9.8 L Hct 30.3 L MCV 98.6 D MCH 31.9 H MCHC 32.3 L RDW 16.1 H Plt Count 288 MPV 8.0 Neut % (Auto) 65.9 Lymph % (Auto) 21.6 [place] % (Auto) 8.6 Eos % (Auto) 3.4 Baso % (Auto) 0.5 Neut # (Auto) 3.7 Lymph # (Auto) 1.2 [place] # (Auto) 0.5 Eos # (Auto) 0.2 Baso # (Auto) 0.0 Sodium 139 Potassium 4.7 Chloride 98 Carbon Dioxide 31 H Anion Gap 15 BUN 37 H Creatinine 9.0 H* D Est GFR ( Amer) 6 Est GFR (Non-Af Amer) 5 Random Glucose 97 Calcium 12.0 H Total Bilirubin 0.7 AST 14 D ALT < 6 L D Alkaline Phosphatase 57 Troponin I 0.0140 NT-Pro-B Natriuret Pep 02421 H Total Protein 9.1 H Albumin 4.2 Globulin 4.9 H Albumin/Globulin Ratio 0.9 L Influenza Typ A,B (EIA) Negative for flu a/b Assessment & Plan - Assessment and Plan (Free Text) Assessment: Pleural effusion ? Etio HTN, ESRD Fot thoracentesis; Cont meds/ supportive care
--- NOTE | 2018-06-10 11:10 | RAD ---
Date of service: 06/10/2018 PROCEDURE: CHEST RADIOGRAPH, 1 VIEW HISTORY: post thoracentesis COMPARISON: 06/09/2018 FINDINGS: LUNGS: Clear. PLEURA: Bilateral small pleural effusion. No pneumothorax. CARDIOVASCULAR: No aortic atherosclerotic calcification present. Normal heart size. Right tunneled central venous dialysis catheter. OSSEOUS STRUCTURES: No significant abnormalities. VISUALIZED UPPER ABDOMEN: Normal. OTHER FINDINGS: None. IMPRESSION: Small bilateral pleural effusion.
[2018-06-10 11:18] LABS: INR 1.1; PROTHROMBIN TIME 12.1 SECONDS (9.7-12.2)
--- NOTE | 2018-06-10 13:58 | CP.PCM.CON ---
History of Present Illness - History of Present Illness History of Present Illness: 47 y/o female with HTN and ESRD. Patient admitted 1-2 moths ago for non functioning PD. Patient had been seen in clinic for bronchitis and place on inhaler. then patient had increasing shortness of breath & dry cough x 1 wk.; came to ED and new large right pleural effusion seen. Had immediate dialysis - 2600ml fluid removed. She missed her HD earlier that day and got more SOB. H/o nephrosclerosis. now with fevers, chills FH- no CKD PSH- PD cath and removal, AV fistula, permcath Social- no ETOH, smoking, illicits Review of Systems - Constitutional Constitutional: As Per HPI, Chills, Fatigue, Weakness - EENT Eyes: absent: As Per HPI, Blind Spots, Blurred Vision, Change in Vision, Decreased Night Vision, Diplopia, Discharge, Dry Eye, Exophthalmos, Floaters, Irritation, Itchy Eyes, Loss of Peripheral Vision, Pain, Photophobia, Requires Corrective Lenses, Sees Flashes, Spots in Vision, Tunnel Vision, Other Visual Disturbances, Loss of Vision, Other Ears: absent: As Per HPI, Decreased Hearing, Ear Discharge, Ear Pain, Tinnitus, Abnormal Hearing, Disequilibrium, Dizziness, Other Nose/Mouth/Throat: absent: As Per HPI, Epistaxis, Nasal Congestion, Nasal Discharge, Nasal Obstruction, Nasal Trauma, Nose Pain, Post Nasal Drip, Sinus Pain, Sinus Pressure, Bleeding Gums, Change in Voice, Dental Pain, Dry Mouth, Dysphagia, Halitosis, Hoarsness, Lip Swelling, Mouth Lesions, Mouth Pain, Odynophagia, Sore Throat, Throat Swelling, Tongue Swelling, Facial Pain, Neck P ain, Neck Mass, Other - Cardiovascular Cardiovascular: Dyspnea on Exertion - Respiratory Respiratory: Cough, Pain with Coughing - Gastrointestinal Gastrointestinal: absent: As Per HPI, Abdominal Pain, Belching, Bloating, Change in Bowel Habits, Change in Stool Character, Coffee Ground Emesis, Constipation, Cramping, Diarrhea, Dyspepsia, Dysphagia, Early Satiety, Excessive Flatus, Fecal Incontinence, Heartburn, Hematemesis, Hematochezia, Loose Stools, Melena, Nausea, Odynophagia, Temesmus, Vomiting, Other - Genitourinary Genitourinary: As Per HPI - Musculoskeletal Musculoskeletal: Muscle Weakness, Myalgias - Neurological Neurological: Weakness Past Patient History - Infectious Disease Hx of Infectious Diseases: None - Tetanus Immunizations Tetanus Immunization: Unknown - Past Medical History & Family History Past Medical History?: Yes Past Family History: Reviewed and not pertinent - Past Social History Smoking Status: Never Smoked Chewing Tobacco Use: No Cigar Use: No Alcohol: None Drugs: Denies Home Situation {Lives}: With Family - CARDIAC Hx Hypertension: Yes - PULMONARY Hx Respiratory Disorders: No - NEUROLOGICAL Hx Neurological Disorder: No - HEENT Hx HEENT Problems: No - RENAL Hx Chronic Kidney Disease: Yes Hx Dialysis: Yes Type of Dialysis Access: right perma cath Hx Kidney Stones: No Hx Neurogenic Bladder: No Hx Renal Failure: Yes Other/Comment: HD T--[facility] [place] - ENDOCRINE/METABOLIC Hx Endocrine Disorders: No - HEMATOLOGICAL/ONCOLOGICAL Hx Blood Disorders: No Hx Blood Transfusions: Yes (Apr 2018) - INTEGUMENTARY Hx Dermatological Problems: No - MUSCULOSKELETAL/RHEUMATOLOGICAL Hx Musculoskeletal Disorders: No Hx Falls: No - GASTROINTESTINAL Hx Gastrointestinal Disorders: No - GENITOURINARY/GYNECOLOGICAL Hx Genitourinary Disorders: No - PSYCHIATRIC Hx Substance Use: No - SURGICAL HISTORY Hx Surgeries: No - ANESTHESIA Hx Anesthesia: No Hx Anesthesia Reactions: No Hx Malignant Hyperthermia: No Has any member of the family had a problem w/ anesthesia?: No Meds Allergies/Adverse Reactions: Allergies Allergy/AdvReac Type Severity Reaction Status Date / Time No Known Allergies Allergy Verified 06/09/18 11:27 - Medications Medications: Current Medications Amlodipine Besylate (Norvasc) 5 mg PO DAILY [facility] Last Admin: 06/10/18 10:50 Dose: 5 mg Heparin Sodium (Porcine) (Heparin) 3,700 units IVP TTS [facility] Last Admin: 06/09/18 18:45 Dose: 3,700 units Physical Exam - Constitutional Appears: No Acute Distress, Chronically Ill - Head Exam Head Exam: ATRAUMATIC, NORMAL INSPECTION - Eye Exam Eye Exam: EOMI, Normal appearance - Neck Exam Neck exam: Positive for: Normal Inspection. Negative for: Tenderness - Respiratory Exam Respiratory Exam: Decreased Breath Sounds, Rhonchi, NORMAL BREATHING PATTERN - Cardiovascular Exam Cardiovascular Exam: REGULAR RHYTHM, +S1 - GI/Abdominal Exam GI & Abdominal Exam: Soft. absent: Tenderness - Extremities Exam Extremities exam: Positive for: normal inspection. Negative for: tenderness - Neurological Exam Neurological exam: Alert, CN II-XII Intact - Skin Skin Exam: Dry, Warm Results - Vital Signs Recent Vital Signs: Last Vital Signs Temp 100.1 F H 06/10/18 07:00 Pulse 122 H 06/10/18 08:11 Resp 18 06/10/18 07:00 BP 128/83 06/10/18 07:00 Pulse Ox 95 06/10/18 07:00 - Labs Result Diagrams: 06/09/18 12:33 06/09/18 12:33 Labs: Laboratory Results - last 24 hr 06/10/18 11:06 PT 12.1 INR 1.1 APTT 28 Assessment & Plan (1) Pneumonia Status: Acute (2) Pleural effusion Status: Acute (3) ESRD (end stage renal disease) on dialysis Status: Acute (4) Hypertensive chronic kidney disease with stage 5 chronic kidney disease or end stage renal disease Status: Acute - Assessment and Plan (Free Text) Plan: evaluate pleural effusion- consider tap IV ABs pulm eval dialysis TTS
--- NOTE | 2018-06-10 13:59 | CP.PCM.PN ---
Subjective - Date & Time of Evaluation Date of Evaluation: 06/10/18 Time of Evaluation: 10:20 - Subjective Subjective: Patient seen and examined Thoracentesis procedure done under aseptic conditions, local anesthesia left seventh intercostal space which was marked by sonogram 1100 cc of straw-colored fluid removed Afebrile Status post hemodialysis yesterday Denies chest pain, denies cough Objective - Vital Signs/Intake and Output Vital Signs (last 24 hours): Temp Pulse Resp BP Pulse Ox 100.1 F H 122 H 18 128/83 95 06/10/18 07:00 06/10/18 08:11 06/10/18 07:00 06/10/18 07:00 06/10/18 07:00 Intake and Output: 06/10/18 06/10/18 06:59 18:59 Intake Total 100 Balance 100 - Medications Medications: Current Medications Amlodipine Besylate (Norvasc) 5 mg PO DAILY [facility] Last Admin: 06/10/18 10:50 Dose: 5 mg Heparin Sodium (Porcine) (Heparin) 3,700 units IVP TTS [facility] Last Admin: 06/09/18 18:45 Dose: 3,700 units - Labs Labs: 06/09/18 12:33 06/09/18 12:33 PT 12.1 SECONDS (9.7-12.2) 06/10/18 11:06 INR 1.1 06/10/18 11:06 APTT 28 SECONDS (21-34) 06/10/18 11:06 - Head Exam Head Exam: ATRAUMATIC, NORMOCEPHALIC - ENT Exam ENT Exam: Mucous Membranes Moist - Neck Exam Neck Exam: Normal Inspection - Respiratory Exam Respiratory Exam: Decreased Breath Sounds - Cardiovascular Exam Cardiovascular Exam: REGULAR RHYTHM - GI/Abdominal Exam GI & Abdominal Exam: Soft Assessment and Plan (1) Pleural effusion Assessment & Plan: Bilateral pleural effusion secondary to end-stage renal disease Status post thoracentesis and 1100 cc of fluid removed from left pleural space Fluid analysis Continue hemodialysis Status: Acute (2) ESRD (end stage renal disease) on dialysis Status: Acute
[2018-06-10 15:04] LABS: BODY FLUID TYPE PLEURAL/THORACENTESI
[2018-06-10 15:36] LABS: BF GROSS APPEARANCE SL CLOUDY (CLEAR)
[2018-06-10 15:37] LABS: BODY FLUID MONO/MACROPHAGE 5 % (0-0); BODY FLUID TOTAL COUNT 100 (0-0)
--- NOTE | 2018-06-10 16:59 | US ---
Date of service: 06/10/2018 PROCEDURE: Ultrasound left mauro thorax, limited HISTORY: PL EFF. THORA DONE BY DR MARTI COMPARISON: Not available TECHNIQUE: Limited ultrasound examination of the left hemithorax was performed for identification of pleural fluid for thoracentesis. FINDINGS: There is a left pleural effusion demonstrated. The area examination was marked for indication of possible entry site for thoracentesis. IMPRESSION: Left pleural effusion demonstrated.
[2018-06-11 08:37] LABS: ALB/GLOB RATIO 0.9 (1.0-2.1); ALT/SGPT < 6 U/L (9-52); AST/SGOT 17 U/L (14-36); BLOOD UREA NITROGEN 44 mg/dL (7-17); CALCIUM 11.6 mg/dl (8.6-10.4); GFR NON-AFRICAN AMERICAN 5
[2018-06-11] MEDS ORDERED: Piperacillin/Tazobact 3.375 GM in Sodium Chloride 100 ML IVPB SCH (10:00)
[2018-06-11] MEDS ORDERED: Piperacillin/Tazobact 2.25 GM in Sodium Chloride 100 ML IVPB SCH (10:55)
--- NOTE | 2018-06-11 11:36 | CP.PCM.PN ---
Subjective - Date & Time of Evaluation Date of Evaluation: 06/11/18 Time of Evaluation: 11:34 - Subjective Subjective: on HD UF limited by drop in BP feels chills says breathing is better post thoracentesis no pain appetite fair decreased urine no rash no abdominal pain no palpitations no fever no headache +cough Objective - Vital Signs/Intake and Output Vital Signs (last 24 hours): Temp Pulse Resp BP Pulse Ox 97.3 F L 103 H 16 85/66 L 100 06/11/18 09:55 06/11/18 10:00 06/11/18 09:55 06/11/18 10:50 06/11/18 07:00 Intake and Output: 06/11/18 06/11/18 06:59 18:59 Intake Total 300 Balance 300 - Medications Medications: Current Medications Albumin Human (Albumin Human 25% (12.5 Gm/50 Ml)) 12.5 gm IV ONCE ONE Stop: 06/11/18 12:01 Amlodipine Besylate (Norvasc) 5 mg PO DAILY [facility] Heparin Sodium (Porcine) (Heparin) 3,700 units IVP TTS [facility] Last Admin: 06/11/18 10:11 Dose: 3,700 units Piperacillin Sod/Tazobactam (Sod 2.25 gm/ Sodium Chloride) 100 mls @ 200 mls/hr IVPB Q8H [facility]; Protocol - Labs Labs: 06/09/18 12:33 06/11/18 07:02 PT 12.1 SECONDS (9.7-12.2) 06/10/18 11:06 INR 1.1 06/10/18 11:06 APTT 28 SECONDS (21-34) 06/10/18 11:06 - Constitutional Appears: No Acute Distress, Chronically Ill - Head Exam Head Exam: ATRAUMATIC, NORMAL INSPECTION - Eye Exam Eye Exam: EOMI - ENT Exam ENT Exam: Mucous Membranes Moist - Neck Exam Neck Exam: Full ROM. absent: Lymphadenopathy - Respiratory Exam Respiratory Exam: NORMAL BREATHING PATTERN Additional comments: decreased breath sounds at bases - Cardiovascular Exam Cardiovascular Exam: REGULAR RHYTHM. absent: Rubs - GI/Abdominal Exam GI & Abdominal Exam: Soft. absent: Tenderness - Extremities Exam Extremities Exam: absent: Pedal Edema - Neurological Exam Neurological Exam: Alert, Oriented x3 Assessment and Plan - Assessment and Plan (Free Text) Assessment: esrd bilateral pleural effusions, f/u culture post thoracentesis\ hold bp medicines for BP <110 hypercalcemia w/u pending
[2018-06-11] MEDS ORDERED: Albumin Human 25% (12.5 gm/50 ml) IV ONE (12:00)
--- NOTE | 2018-06-11 12:48 | CP.PCM.PN ---
Subjective - Date & Time of Evaluation Date of Evaluation: 06/11/18 Time of Evaluation: 12:40 - Subjective Subjective: Patient seen and examined during hemodialysis Complaining of chills Status post thoracentesis Blood cultures drawn Objective - Vital Signs/Intake and Output Vital Signs (last 24 hours): Temp Pulse Resp BP Pulse Ox 97.3 F L 103 H 16 86/62 L 100 06/11/18 09:55 06/11/18 10:00 06/11/18 09:55 06/11/18 11:50 06/11/18 07:00 Intake and Output: 06/11/18 06/11/18 06:59 18:59 Intake Total 300 Balance 300 - Medications Medications: Current Medications Amlodipine Besylate (Norvasc) 5 mg PO DAILY [facility] Heparin Sodium (Porcine) (Heparin) 3,700 units IVP TTS [facility] Last Admin: 06/11/18 10:11 Dose: 3,700 units Piperacillin Sod/Tazobactam (Sod 2.25 gm/ Sodium Chloride) 100 mls @ 200 mls/hr IVPB Q8H [facility]; Protocol - Labs Labs: 06/09/18 12:33 06/11/18 07:02 PT 12.1 SECONDS (9.7-12.2) 06/10/18 11:06 INR 1.1 06/10/18 11:06 APTT 28 SECONDS (21-34) 06/10/18 11:06 - Head Exam Head Exam: ATRAUMATIC, NORMOCEPHALIC - ENT Exam ENT Exam: Mucous Membranes Moist - Neck Exam Neck Exam: Normal Inspection - Respiratory Exam Respiratory Exam: Decreased Breath Sounds - Cardiovascular Exam Cardiovascular Exam: REGULAR RHYTHM Assessment and Plan (1) Pleural effusion Assessment & Plan: Follow-up cultures and fluid analysis Continue antibiotics Complaining of chills during hemodialysis Status: Acute (2) ESRD (end stage renal disease) on dialysis Status: Acute
[2018-06-11] MEDS: Piperacillin/Tazobact 2.25 GM in Sodium Chloride 100 ML IVPB SCH ×2 (13:10→21:01)
--- NOTE | 2018-06-11 15:32 | CP.PCM.PN ---
Subjective - Date & Time of Evaluation Date of Evaluation: 06/11/18 Time of Evaluation: 15:30 - Subjective Subjective: S: Feels better. No fever. On IV abtibiotic Objective - Vital Signs/Intake and Output Vital Signs (last 24 hours): Temp Pulse Resp BP Pulse Ox 97.8 F 104 H 16 104/63 99 06/11/18 12:40 06/11/18 12:40 06/11/18 12:40 06/11/18 12:40 06/11/18 12:40 Intake and Output: 06/11/18 06/11/18 06:59 18:59 Intake Total 300 Balance 300 - Medications Medications: Current Medications Amlodipine Besylate (Norvasc) 5 mg PO DAILY [facility] Heparin Sodium (Porcine) (Heparin) 3,700 units IVP TTS [facility] Last Admin: 06/11/18 10:11 Dose: 3,700 units Piperacillin Sod/Tazobactam (Sod 2.25 gm/ Sodium Chloride) 100 mls @ 200 mls/hr IVPB Q8H [facility]; Protocol Last Admin: 06/11/18 13:10 Dose: 200 mls/hr - Labs Labs: 06/09/18 12:33 06/11/18 07:02 PT 12.1 SECONDS (9.7-12.2) 06/10/18 11:06 INR 1.1 06/10/18 11:06 APTT 28 SECONDS (21-34) 06/10/18 11:06 - Constitutional Appears: Chronically Ill - Head Exam Head Exam: NORMAL INSPECTION - Eye Exam Eye Exam: Normal appearance - ENT Exam ENT Exam: Normal Exam - Neck Exam Neck Exam: Normal Inspection - Respiratory Exam Respiratory Exam: Decreased Breath Sounds - Cardiovascular Exam Cardiovascular Exam: REGULAR RHYTHM - GI/Abdominal Exam GI & Abdominal Exam: Soft - Rectal Exam Rectal Exam: Deferred - Neurological Exam Neurological Exam: Alert Assessment and Plan (1) Pleural effusion Status: Acute (2) ESRD (end stage renal disease) on dialysis Status: Acute - Assessment and Plan (Free Text) Assessment: A/P: s/p thoracenesis. Contine medications, dialysis and IV antibiotic
[2018-06-12] MEDS: Piperacillin/Tazobact 2.25 GM in Sodium Chloride 100 ML IVPB SCH ×2 (04:20→13:30)
--- NOTE | 2018-06-12 15:30 | CP.PCM.PN ---
Subjective - Date & Time of Evaluation Date of Evaluation: 06/12/18 Time of Evaluation: 14:45 - Subjective Subjective: Patient seen and examined Breathing better Patient placed in respiratory isolation Denies cough, denies fever chills status post hemodialysis yesterday Follow-up fluid culture and sensitivity Objective - Vital Signs/Intake and Output Vital Signs (last 24 hours): Temp Pulse Resp BP Pulse Ox 99.0 F 96 H 20 124/79 97 06/12/18 07:00 06/12/18 08:00 06/12/18 07:00 06/12/18 07:00 06/12/18 07:00 - Medications Medications: Current Medications Acetaminophen (Tylenol 325mg Tab) 650 mg PO Q4 PRN PRN Reason: Fever >100.4 F Last Admin: 06/11/18 23:48 Dose: 650 mg Amlodipine Besylate (Norvasc) 5 mg PO DAILY [facility] Last Admin: 06/12/18 10:06 Dose: 5 mg Piperacillin Sod/Tazobactam (Sod 2.25 gm/ Sodium Chloride) 100 mls @ 200 mls/hr IVPB Q8H [facility]; Protocol Last Admin: 06/12/18 13:30 Dose: 200 mls/hr - Labs Labs: 06/09/18 12:33 06/11/18 07:02 PT 12.1 SECONDS (9.7-12.2) 06/10/18 11:06 INR 1.1 06/10/18 11:06 APTT 28 SECONDS (21-34) 06/10/18 11:06 Assessment and Plan (1) Pleural effusion Status: Acute (2) ESRD (end stage renal disease) on dialysis Status: Acute
--- NOTE | 2018-06-12 16:47 | CP.PCM.CON ---
History of Present Illness - History of Present Illness History of Present Illness: 47 y/o female with HTN and ESRD. Was admitted 1-2 moths ago for non functioning PD and started HD The patient had increasing shortness of breath & dry cough x 1 wk.; came to ED and new large right pleural effusion seen. Placed on Isolation for possible TB AFB smears pending PMH- nephrosclerosis FH- no CKD PSH- PD cath and removal, AV fistula, permcath Social- no ETOH, smoking, illicits Review of Systems - Constitutional Constitutional: As Per HPI, Chills, Fatigue, Weakness - EENT Eyes: absent: As Per HPI, Blind Spots, Blurred Vision, Change in Vision, Decreased Night Vision, Diplopia, Discharge, Dry Eye, Exophthalmos, Floaters, Irritation, Itchy Eyes, Loss of Peripheral Vision, Pain, Photophobia, Requires Corrective Lenses, Sees Flashes, Spots in Vision, Tunnel Vision, Other Visual Disturbances, Loss of Vision, Other Ears: absent: As Per HPI, Decreased Hearing, Ear Discharge, Ear Pain, Tinnitus, Abnormal Hearing, Disequilibrium, Dizziness, Other Nose/Mouth/Throat: absent: As Per HPI, Epistaxis, Nasal Congestion, Nasal Discharge, Nasal Obstruction, Nasal Trauma, Nose Pain, Post Nasal Drip, Sinus Pain, Sinus Pressure, Bleeding Gums, Change in Voice, Dental Pain, Dry Mouth, Dysphagia, Halitosis, Hoarsness, Lip Swelling, Mouth Lesions, Mouth Pain, Odynop hagia, Sore Throat, Throat Swelling, Tongue Swelling, Facial Pain, Neck Pain, Neck Mass, Other - Cardiovascular Cardiovascular: Dyspnea on Exertion - Respiratory Respiratory: Cough, Pain with Coughing - Gastrointestinal Gastrointestinal: absent: As Per HPI, Abdominal Pain, Belching, Bloating, Change in Bowel Habits, Change in Stool Character, Coffee Ground Emesis, Constipation, Cramping, Diarrhea, Dyspepsia, Dysphagia, Early Satiety, Excessive Flatus, Fecal Incontinence, Heartburn, Hematemesis, Hematochezia, Loose Stools, Melena, Nausea, Odynophagia, Temesmus, Vomiting, Other - Genitourinary Genitourinary: As Per HPI - Musculoskeletal Musculoskeletal: Muscle Weakness, Myalgias - Neurological Neurological: Weakness Past Patient History - Infectious Disease Hx of Infectious Diseases: None - Tetanus Immunizations Tetanus Immunization: Unknown - Past Medical History & Family History Past Medical History?: Yes - Past Social History Smoking Status: Never Smoked - CARDIAC Hx Hypertension: Yes - PULMONARY Hx Respiratory Disorders: No - NEUROLOGICAL Hx Neurological Disorder: No - HEENT Hx HEENT Problems: No - RENAL Hx Chronic Kidney Disease: No - ENDOCRINE/METABOLIC Hx Endocrine Disorders: No - HEMATOLOGICAL/ONCOLOGICAL Hx Blood Disorders: No Hx Blood Transfusions: No - INTEGUMENTARY Hx Dermatological Problems: No - MUSCULOSKELETAL/RHEUMATOLOGICAL Hx Falls: No - GASTROINTESTINAL Hx Gastrointestinal Disorders: No - GENITOURINARY/GYNECOLOGICAL Hx Genitourinary Disorders: No - PSYCHIATRIC Hx Substance Use: No - SURGICAL HISTORY Hx Surgeries: No - ANESTHESIA Hx Anesthesia: No Meds Allergies/Adverse Reactions: Allergies Allergy/AdvReac Type Severity Reaction Status Date / Time No Known Allergies Allergy Verified 06/09/18 11:27 - Medications Medications: Current Medications Acetaminophen (Tylenol 325mg Tab) 650 mg PO Q4 PRN PRN Reason: Fever >100.4 F Last Admin: 06/11/18 23:48 Dose: 650 mg Amlodipine Besylate (Norvasc) 5 mg PO DAILY [facility] Last Admin: 06/12/18 10:06 Dose: 5 mg Piperacillin Sod/Tazobactam (Sod 2.25 gm/ Sodium Chloride) 100 mls @ 200 mls/hr IVPB Q8H [facility]; Protocol Last Admin: 06/12/18 13:30 Dose: 200 mls/hr Physical Exam - Constitutional Appears: No Acute Distress, Chronically Ill - Head Exam Head Exam: ATRAUMATIC, NORMOCEPHALIC - Eye Exam Eye Exam: EOMI, PERRL. absent: Scleral icterus - ENT Exam ENT Exam: Mucous Membranes Dry, Normal External Ear Exam - Neck Exam Neck exam: Negative for: Lymphadenopathy, Thyromegaly - Respiratory Exam Respiratory Exam: Decreased Breath Sounds, Prolonged Expiratory Phase, Rhonchi - Cardiovascular Exam Cardiovascular Exam: REGULAR RHYTHM, +S1, +S2 - GI/Abdominal Exam GI & Abdominal Exam: Diminished Bowel Sounds, Soft. absent: Rebound, Rigid, Tenderness - Rectal Exam Rectal Exam: Deferred - Exam Exam: NORMAL INSPECTION - Extremities Exam Extremities exam: Positive for: pedal pulses present. Negative for: calf tenderness, pedal edema, tenderness - Back Exam Back exam: absent: CVA tenderness (L), CVA tenderness (R), paraspinal tenderness - Neurological Exam Neurological exam: Alert, CN II-XII Intact, Oriented x3, Reflexes Normal - Psychiatric Exam Psychiatric exam: Normal Mood - Skin Skin Exam: Dry Results - Vital Signs Recent Vital Signs: Last Vital Signs Temp 99.0 F 06/12/18 07:00 Pulse 96 H 06/12/18 08:00 Resp 20 06/12/18 07:00 BP 124/79 06/12/18 07:00 Pulse Ox 97 06/12/18 07:00 - Labs Result Diagrams: 06/09/18 12:33 06/11/18 07:02 Assessment & Plan (1) Pleural effusion Status: Acute (2) Pneumonia Status: Acute (3) ESRD (end stage renal disease) on dialysis Status: Acute (4) Fever Status: Acute (5) Hypertensive chronic kidney disease with stage 5 chronic kidney disease or end stage renal disease Status: Acute - Assessment and Plan (Free Text) Assessment: pneumonia woith pleurisy r/o occult TB IV antibiotics ordered cultures pending
[2018-06-12 21:36] LABS: TOTAL PROTEIN PLEURAL FLUID 6.7 g/dL
[2018-06-13] MEDS: Piperacillin/Tazobact 2.25 GM in Sodium Chloride 100 ML IVPB SCH ×3 (04:15→21:00)
--- NOTE | 2018-06-13 08:41 | CP.PCM.PN ---
Subjective - Date & Time of Evaluation Date of Evaluation: 06/13/18 Time of Evaluation: 08:30 - Subjective Subjective: Pt no complain; [place] dec cough, no CP, no SOB since thoracentesis. No n/v, no diarrhea, (+) fever 102 yesterday afternoon. Culture still negative Objective - Vital Signs/Intake and Output Vital Signs (last 24 hours): Temp Pulse Resp BP Pulse Ox 99.7 F H 98 H 20 129/79 95 06/13/18 04:00 06/13/18 07:05 06/13/18 04:00 06/13/18 04:00 06/13/18 04:00 - Medications Medications: Current Medications Acetaminophen (Tylenol 325mg Tab) 650 mg PO Q4 PRN PRN Reason: Fever >100.4 F Last Admin: 06/12/18 16:49 Dose: 650 mg Amlodipine Besylate (Norvasc) 5 mg PO DAILY [facility] Last Admin: 06/12/18 10:06 Dose: 5 mg Piperacillin Sod/Tazobactam (Sod 2.25 gm/ Sodium Chloride) 100 mls @ 200 mls/hr IVPB Q8H [facility]; Protocol Last Admin: 06/13/18 04:15 Dose: 200 mls/hr - Labs Labs: 06/09/18 12:33 06/11/18 07:02 PT 12.1 SECONDS (9.7-12.2) 06/10/18 11:06 INR 1.1 06/10/18 11:06 APTT 28 SECONDS (21-34) 06/10/18 11:06 - Constitutional Appears: No Acute Distress Assessment and Plan (1) Pleural effusion Status: Acute (2) ESRD (end stage renal disease) on dialysis Status: Acute
--- NOTE | 2018-06-13 08:49 | CP.PCM.PN ---
Subjective - Date & Time of Evaluation Date of Evaluation: 06/13/18 Time of Evaluation: 08:34 - Subjective Subjective: Pt no complain; Want to go home but had fever 102 at 4 PM. No more cough, no CP, no SOB, no diarrhea; good appetite Objective - Vital Signs/Intake and Output Vital Signs (last 24 hours): Temp Pulse Resp BP Pulse Ox 99.7 F H 98 H 20 129/79 95 06/13/18 04:00 06/13/18 07:05 06/13/18 04:00 06/13/18 04:00 06/13/18 04:00 - Medications Medications: Current Medications Acetaminophen (Tylenol 325mg Tab) 650 mg PO Q4 PRN PRN Reason: Fever >100.4 F Last Admin: 06/12/18 16:49 Dose: 650 mg Amlodipine Besylate (Norvasc) 5 mg PO DAILY [facility] Last Admin: 06/12/18 10:06 Dose: 5 mg Piperacillin Sod/Tazobactam (Sod 2.25 gm/ Sodium Chloride) 100 mls @ 200 mls/hr IVPB Q8H [facility]; Protocol Last Admin: 06/13/18 04:15 Dose: 200 mls/hr - Labs Labs: 06/09/18 12:33 06/11/18 07:02 PT 12.1 SECONDS (9.7-12.2) 06/10/18 11:06 INR 1.1 06/10/18 11:06 APTT 28 SECONDS (21-34) 06/10/18 11:06 - Constitutional Appears: No Acute Distress - Eye Exam Eye Exam: Normal appearance - ENT Exam ENT Exam: Mucous Membranes Moist - Neck Exam Neck Exam: Full ROM. absent: Lymphadenopathy - Respiratory Exam Respiratory Exam: Decreased Breath Sounds. absent: Rales, Rhonchi, Wheezes - Cardiovascular Exam Cardiovascular Exam: REGULAR RHYTHM, +S1, +S2. absent: Gallop, JVD - GI/Abdominal Exam GI & Abdominal Exam: Soft. absent: Guarding, Rigid, Tenderness - Extremities Exam Extremities Exam: Full ROM, Normal Capillary Refill. absent: Calf Tenderness, Joint Swelling, Pedal Edema Assessment and Plan - Assessment and Plan (Free Text) Assessment: Fever/ pleural effusion ? TB HRN, ESRD Cont meds/ recheck CBC All culture is still negative; Quantiferon - pending
[2018-06-13 11:30] LABS: BASO % 0.5 % (0.0-2.0); EOS # 0.5 K/uL (0.0-0.7); EOS % 9.1 % (0.0-4.0); HEMOGLOBIN 8.5 g/dL (11.0-16.0); LYMPH # 0.9 K/uL (1.0-4.3); LYMPH % 18.7 % (20.0-40.0); MEAN CELL VOLUME 97.8 fL (81.0-99.0); MEAN CORPUSCULAR HEMOGLOBIN 32.4 pg (27.0-31.0); MEAN CORPUSCULAR HGB CONC 33.1 g/dL (33.0-37.0); MEAN PLATELET VOLUME 8.5 fL (7.2-11.7); MONO # 0.6 K/uL (0.0-0.8); NEUT % 60.7 % (50.0-75.0); RBC 2.63 Mil/uL (3.80-5.20); RED CELL DISTRIBUTION WIDTH 15.9 % (11.5-14.5)
--- NOTE | 2018-06-13 11:52 | CP.PCM.PN ---
Subjective - Date & Time of Evaluation Date of Evaluation: 06/13/18 Time of Evaluation: 08:00 - Subjective Subjective: afebrile less cough appears ill nad await AFB smears may need pleural bx Objective - Vital Signs/Intake and Output Vital Signs (last 24 hours): Temp Pulse Resp BP Pulse Ox 98.5 F 99 H 18 144/79 100 06/13/18 08:00 06/13/18 08:00 06/13/18 08:00 06/13/18 08:00 06/13/18 08:00 - Medications Medications: Current Medications Acetaminophen (Tylenol 325mg Tab) 650 mg PO Q4 PRN PRN Reason: Fever >100.4 F Last Admin: 06/12/18 16:49 Dose: 650 mg Amlodipine Besylate (Norvasc) 5 mg PO DAILY [facility] Last Admin: 06/13/18 10:39 Dose: 5 mg Piperacillin Sod/Tazobactam (Sod 2.25 gm/ Sodium Chloride) 100 mls @ 200 mls/hr IVPB Q8H [facility]; Protocol Last Admin: 06/13/18 04:15 Dose: 200 mls/hr - Labs Labs: 06/13/18 11:20 06/11/18 07:02 PT 12.1 SECONDS (9.7-12.2) 06/10/18 11:06 INR 1.1 06/10/18 11:06 APTT 28 SECONDS (21-34) 06/10/18 11:06 - Constitutional Appears: Well - Head Exam Head Exam: ATRAUMATIC, NORMAL INSPECTION, NORMOCEPHALIC - Eye Exam Eye Exam: EOMI, Normal appearance, PERRL Pupil Exam: NORMAL ACCOMODATION, PERRL - ENT Exam ENT Exam: Mucous Membranes Moist, Normal Exam - Neck Exam Neck Exam: Full ROM, Normal Inspection. absent: Lymphadenopathy - Respiratory Exam Respiratory Exam: Clear to Ausculation Bilateral, NORMAL BREATHING PATTERN - Cardiovascular Exam Cardiovascular Exam: REGULAR RHYTHM, +S1, +S2. absent: Murmur - GI/Abdominal Exam GI & Abdominal Exam: Soft, Normal Bowel Sounds. absent: Tenderness - Rectal Exam Rectal Exam: NORMAL INSPECTION - Exam Exam: Circumcision, NORMAL INSPECTION External exam: NORMAL EXTERNAL EXAM Speculum exam: NORMAL SPECULUM EXAM Bimanual exam: NORMAL BIMANUAL EXAM - Extremities Exam Extremities Exam: Full ROM, Normal Capillary Refill, Normal Inspection. absent: Joint Swelling, Pedal Edema - Back Exam Back Exam: NORMAL INSPECTION - Neurological Exam Neurological Exam: Alert, Awake, CN II-XII Intact, Normal Gait, Oriented x3 - Psychiatric Exam Psychiatric exam: Normal Affect, Normal Mood - Skin Skin Exam: Dry, Intact, Normal Color, Warm Assessment and Plan (1) Pleural effusion Status: Acute (2) Pneumonia Status: Acute (3) ESRD (end stage renal disease) on dialysis Status: Acute (4) Fever Status: Acute (5) Hypertensive chronic kidney disease with stage 5 chronic kidney disease or end stage renal disease Status: Acute
--- NOTE | 2018-06-13 12:14 | CP.PCM.PN ---
Subjective - Date & Time of Evaluation Date of Evaluation: 06/13/18 Time of Evaluation: 12:10 - Subjective Subjective: more alert still with intermittent fevers dialysis complicated by hypotension cultures and afb smears neg so far post thoracentesis better appetite Objective - Vital Signs/Intake and Output Vital Signs (last 24 hours): Temp Pulse Resp BP Pulse Ox 98.5 F 99 H 18 144/79 100 06/13/18 08:00 06/13/18 08:00 06/13/18 08:00 06/13/18 08:00 06/13/18 08:00 - Medications Medications: Current Medications Acetaminophen (Tylenol 325mg Tab) 650 mg PO Q4 PRN PRN Reason: Fever >100.4 F Last Admin: 06/12/18 16:49 Dose: 650 mg Amlodipine Besylate (Norvasc) 5 mg PO DAILY [facility] Last Admin: 06/13/18 10:39 Dose: 5 mg Piperacillin Sod/Tazobactam (Sod 2.25 gm/ Sodium Chloride) 100 mls @ 200 mls/hr IVPB Q8H [facility]; Protocol Last Admin: 06/13/18 04:15 Dose: 200 mls/hr - Labs Labs: 06/13/18 11:20 06/11/18 07:02 PT 12.1 SECONDS (9.7-12.2) 06/10/18 11:06 INR 1.1 06/10/18 11:06 APTT 28 SECONDS (21-34) 06/10/18 11:06 - Constitutional Appears: No Acute Distress, Chronically Ill - Head Exam Head Exam: ATRAUMATIC, NORMAL INSPECTION - Eye Exam Eye Exam: EOMI, Normal appearance - Neck Exam Neck Exam: Normal Inspection. absent: Tenderness - Respiratory Exam Respiratory Exam: Decreased Breath Sounds, NORMAL BREATHING PATTERN - Cardiovascular Exam Cardiovascular Exam: REGULAR RHYTHM, +S1 - GI/Abdominal Exam GI & Abdominal Exam: Soft. absent: Tenderness - Extremities Exam Extremities Exam: Normal Inspection. absent: Tenderness - Neurological Exam Neurological Exam: Awake, CN II-XII Intact - Skin Skin Exam: Dry, Warm Assessment and Plan (1) Pneumonia Status: Acute (2) Pleural effusion Status: Acute (3) ESRD (end stage renal disease) on dialysis Status: Acute (4) Hypertensive chronic kidney disease with stage 5 chronic kidney disease or end stage renal disease Status: Acute - Assessment and Plan (Free Text) Plan: await all cultures antimicrobials as per ID dialysis in AM, decrease UF goal
--- NOTE | 2018-06-13 16:24 | CP.PCM.PN ---
Subjective - Date & Time of Evaluation Date of Evaluation: 06/13/18 Time of Evaluation: 10:55 - Subjective Subjective: Patient seen and examined Spiking fever Denies cough, denies fever chills In respiratory isolation Objective - Vital Signs/Intake and Output Vital Signs (last 24 hours): Temp Pulse Resp BP Pulse Ox 98.5 F 95 H 18 144/79 100 06/13/18 08:00 06/13/18 15:15 06/13/18 08:00 06/13/18 08:00 06/13/18 08:00 Intake and Output: 06/13/18 06/13/18 06:59 18:59 Intake Total 500 Balance 500 - Medications Medications: Current Medications Acetaminophen (Tylenol 325mg Tab) 650 mg PO Q4 PRN PRN Reason: Fever >100.4 F Last Admin: 06/12/18 16:49 Dose: 650 mg Amlodipine Besylate (Norvasc) 5 mg PO DAILY [facility] Last Admin: 06/13/18 10:39 Dose: 5 mg Piperacillin Sod/Tazobactam (Sod 2.25 gm/ Sodium Chloride) 100 mls @ 200 mls/hr IVPB Q8H [facility]; Protocol Last Admin: 06/13/18 12:22 Dose: 200 mls/hr - Labs Labs: 06/13/18 11:20 06/11/18 07:02 PT 12.1 SECONDS (9.7-12.2) 06/10/18 11:06 INR 1.1 06/10/18 11:06 APTT 28 SECONDS (21-34) 06/10/18 11:06 - Head Exam Head Exam: ATRAUMATIC, NORMOCEPHALIC - ENT Exam ENT Exam: Mucous Membranes Moist - Neck Exam Neck Exam: Normal Inspection - Respiratory Exam Respiratory Exam: Decreased Breath Sounds - Cardiovascular Exam Cardiovascular Exam: REGULAR RHYTHM - GI/Abdominal Exam GI & Abdominal Exam: Soft, Normal Bowel Sounds Assessment and Plan (1) Pleural effusion Assessment & Plan: Status post thoracentesis Pleural fluid consistent with exudate Rule out tuberculosis versus parapneumonic effusion Continue antibiotics CAT scan of chest Agree with the lung biopsy Status: Acute (2) ESRD (end stage renal disease) on dialysis Status: Acute
--- NOTE | 2018-06-13 17:51 | CT ---
Date of service: 06/13/2018 CT chest without IV contrast Indication: fever Technique: Contiguous axial images were obtained through the chest without intravenous contrast enhancement. Sagittal and coronal reconstructions were generated and reviewed. This CT exam was performed using 1 or more of the following dose reduction techniques: Automated exposure control, adjustment of the MAA and/or kV according to patient size, and/or use of iterative reconstruction technique. Radiation dose (DLP): 476.79 MGy-cm. Comparison: Chest x-ray performed 06/10/18 Findings: Right IJ approach dialysis catheter extends to the right atrium. Visualized portions of the inferior thyroid gland appear unremarkable. The unenhanced mediastinal and hilar vascular structures appear grossly unremarkable. Mild cardiomegaly. Dense coronary artery calcifications. Prevascular/mediastinal adenopathy measuring up to 1.2 cm in short axis (precarinal), nonspecific. Large bilateral pleural effusions and associated consolidations. No pneumothorax. Limited visualization of the noncontrast upper abdomen: Question gastric wall thickening. Osseous demineralization. Degenerative changes. Impression: Right IJ approach dialysis catheter extends the right atrium. Prevascular/mediastinal adenopathy measuring up to 1.2 cm in short axis (precarinal), nonspecific. Large bilateral pleural effusions and associated consolidations. Question gastric wall thickening. Correlate clinically for possibility of gastritis.
--- NOTE | 2018-06-13 20:56 | CP.PCM.CON ---
History of Present Illness - History of Present Illness History of Present Illness: Cardiothoracic surgery consult for Dr. Hurley Consulted for evaluation for lung biopsy Patient is a 47 F with PMH HTn and ESRD on dialysis who was admitted to [facility] d/t cough and SOB who is currently on droplet precautions pending TB rule out. 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 Patient is currently resting comfortably in bed saturating well on room air. She endorse a nonproductive cough for several weeks but denies any bloody sputum, night sweats, weight loss, recent travel or exposure to sick persons. She currently denies SANTO, CP< abdominal pain, f/c, n/v, and extremity pain/weakness. PMH: HTN, ESRD on dialysis PSH: denies All: nkda Social: denies smoking, ETOH and illicit drugs, no recent travel or sick contacts Review of Systems - Review of Systems All systems: reviewed and no additional remarkable complaints except (as per HPI) Past Patient History - Infectious Disease Hx of Infectious Diseases: None - Tetanus Immunizations Tetanus Immunization: Unknown - Past Medical History & Family History Past Medical History?: Yes - Past Social History Smoking Status: Never Smoked - CARDIAC Hx Hypertension: Yes - PULMONARY Hx Respiratory Disorders: No - NEUROLOGICAL Hx Neurological Disorder: No - HEENT Hx HEENT Problems: No - RENAL Hx Chronic Kidney Disease: No - ENDOCRINE/METABOLIC Hx Endocrine Disorders: No - HEMATOLOGICAL/ONCOLOGICAL Hx Blood Disorders: No Hx Blood Transfusions: No - INTEGUMENTARY Hx Dermatological Problems: No - MUSCULOSKELETAL/RHEUMATOLOGICAL Hx Falls: No - GASTROINTESTINAL Hx Gastrointestinal Disorders: No - GENITOURINARY/GYNECOLOGICAL Hx Genitourinary Disorders: No - PSYCHIATRIC Hx Substance Use: No - SURGICAL HISTORY Hx Surgeries: No - ANESTHESIA Hx Anesthesia: No Meds Allergies/Adverse Reactions: Allergies Allergy/AdvReac Type Severity Reaction Status Date / Time No Known Allergies Allergy Verified 06/09/18 11:27 - Medications Medications: Current Medications Acetaminophen (Tylenol 325mg Tab) 650 mg PO Q4 PRN PRN Reason: Fever >100.4 F Last Admin: 06/12/18 16:49 Dose: 650 mg Amlodipine Besylate (Norvasc) 5 mg PO DAILY [facility] Last Admin: 06/13/18 10:39 Dose: 5 mg Piperacillin Sod/Tazobactam (Sod 2.25 gm/ Sodium Chloride) 100 mls @ 200 mls/hr IVPB Q8H [facility]; Protocol Last Admin: 06/13/18 12:22 Dose: 200 mls/hr Physical Exam - Constitutional Appears: Well, Non-toxic, No Acute Distress - Head Exam Head Exam: ATRAUMATIC, NORMOCEPHALIC - Eye Exam Eye Exam: EOMI - ENT Exam ENT Exam: Mucous Membranes Moist - Respiratory Exam Respiratory Exam: Clear to Auscultation Bilateral, NORMAL BREATHING PATTERN. absent: Rhonchi, Wheezes, Respiratory Distress - Cardiovascular Exam Cardiovascular Exam: REGULAR RHYTHM. absent: Bradycardia, Tachycardia - GI/Abdominal Exam GI & Abdominal Exam: Soft. absent: Tenderness - Extremities Exam Extremities exam: Negative for: calf tenderness, pedal edema - Neurological Exam Neurological exam: Alert, Oriented x3 - Psychiatric Exam Psychiatric exam: Normal Affect, Normal Mood - Skin Skin Exam: Dry, Intact, Normal Color, Warm Results - Vital Signs Recent Vital Signs: Last Vital Signs Temp 98.2 F 06/13/18 16:00 Pulse 86 06/13/18 16:00 Resp 20 06/13/18 16:00 BP 109/65 06/13/18 16:00 Pulse Ox 97 06/13/18 16:00 - Labs Result Diagrams: 06/17/18 07:02 06/16/18 06:17 Labs: Laboratory Results - last 24 hr 06/10/18 06/10/18 06/13/18 15:02 17:05 11:20 WBC 5.0 RBC 2.63 L Hgb 8.5 L Hct 25.7 L MCV 97.8 MCH 32.4 H MCHC 33.1 RDW 15.9 H Plt Count 217 MPV 8.5 Neut % (Auto) 60.7 Lymph % (Auto) 18.7 L [place] % (Auto) 11.0 H Eos % (Auto) 9.1 H Baso % (Auto) 0.5 Neut # (Auto) 3.0 Lymph # (Auto) 0.9 L [place] # (Auto) 0.6 Eos # (Auto) 0.5 Baso # (Auto) 0.0 PTH Intact Whole Molec 29 Pleural Total Protein 6.7 Pleural LDH 255 Assessment & Plan - Assessment and Plan (Free Text) Assessment: 47 yr old female with persistent cough and positive Quantiferon gold test Plan: Plan: will schedule for VATS pleural biopsy continue droplet precautions and isolation antibiotic regimen as per pulmonary and primary recommendations Discussed with Dr. Vesta Beal, PGY 1 - Date & Time Date: 06/13/18 Time: 20:12
[2018-06-14] MEDS: Piperacillin/Tazobact 2.25 GM in Sodium Chloride 100 ML IVPB SCH ×3 (05:31→21:47)
[2018-06-14 06:33] LABS: BASO % 0.8 % (0.0-2.0); EOS # 0.5 K/uL (0.0-0.7); EOS % 10.6 % (0.0-4.0); HEMOGLOBIN 8.6 g/dL (11.0-16.0); LYMPH % 20.1 % (20.0-40.0); MEAN CELL VOLUME 97.2 fL (81.0-99.0); MEAN CORPUSCULAR HEMOGLOBIN 31.3 pg (27.0-31.0); MEAN CORPUSCULAR HGB CONC 32.3 g/dL (33.0-37.0); MEAN PLATELET VOLUME 8.1 fL (7.2-11.7); MONO # 0.5 K/uL (0.0-0.8); MONO % 10.2 % (0.0-10.0); NEUT % 58.3 % (50.0-75.0); RBC 2.75 Mil/uL (3.80-5.20); RED CELL DISTRIBUTION WIDTH 16.1 % (11.5-14.5); WHITE BLOOD COUNT 5.2 K/uL (4.8-10.8)
[2018-06-14 06:44] LABS: INR 1.1; PROTHROMBIN TIME 11.7 SECONDS (9.7-12.2)
[2018-06-14 06:57] LABS: ALB/GLOB RATIO 0.9 (1.0-2.1); ALBUMIN 3.7 g/dL (3.5-5.0); ALT/SGPT < 6 U/L (9-52); AST/SGOT 13 U/L (14-36); BLOOD UREA NITROGEN 54 mg/dL (7-17); CALCIUM 10.7 mg/dl (8.6-10.4); GFR NON-AFRICAN AMERICAN 4
--- NOTE | 2018-06-14 08:23 | CP.PCM.PN ---
Subjective - Date & Time of Evaluation Date of Evaluation: 06/14/18 Time of Evaluation: 08:05 - Subjective Subjective: Pt no complain; no more fever since yesterday but (+0 dry cough No CP, no SOB, no edema, no n/v, no diarrhea Objective - Vital Signs/Intake and Output Vital Signs (last 24 hours): Temp Pulse Resp BP Pulse Ox 99 F 100 H 20 119/61 97 06/13/18 23:25 06/14/18 00:00 06/13/18 23:25 06/13/18 23:25 06/13/18 23:25 Intake and Output: 06/14/18 06/14/18 06:59 18:59 Intake Total 560 Balance 560 - Medications Medications: Current Medications Acetaminophen (Tylenol 325mg Tab) 650 mg PO Q4 PRN PRN Reason: Fever >100.4 F Last Admin: 06/12/18 16:49 Dose: 650 mg Amlodipine Besylate (Norvasc) 5 mg PO DAILY [facility] Last Admin: 06/13/18 10:39 Dose: 5 mg Piperacillin Sod/Tazobactam (Sod 2.25 gm/ Sodium Chloride) 100 mls @ 200 mls/hr IVPB Q8H [facility]; Protocol Last Admin: 06/14/18 05:31 Dose: 200 mls/hr - Labs Labs: 06/14/18 06:24 06/14/18 06:24 PT 11.7 SECONDS (9.7-12.2) 06/14/18 06:24 INR 1.1 06/14/18 06:24 APTT 30 SECONDS (21-34) 06/14/18 06:24 - Constitutional Appears: No Acute Distress - Eye Exam Eye Exam: Normal appearance - ENT Exam ENT Exam: Mucous Membranes Dry - Neck Exam Neck Exam: Full ROM. absent: Lymphadenopathy, Thyromegaly - Respiratory Exam Respiratory Exam: Decreased Breath Sounds. absent: Rales, Rhonchi, Wheezes - Cardiovascular Exam Cardiovascular Exam: REGULAR RHYTHM, +S1, +S2. absent: Gallop, JVD - GI/Abdominal Exam GI & Abdominal Exam: Soft. absent: Guarding, Tenderness - Extremities Exam Extremities Exam: Full ROM, Normal Capillary Refill. absent: Calf Tenderness, Joint Swelling, Pedal Edema Assessment and Plan - Assessment and Plan (Free Text) Assessment: Pleural effusion/ fever HTN, ESRD Quantiferon (+); Cultures still negative Discuss w/ pt - agree on Bx Cont meds/ supportive care
[2018-06-14] MEDS ORDERED: Loperamide Hydrochloride 1 mg/5 ml Cup PO PRN (08:27)
--- NOTE | 2018-06-14 09:00 | CP.PCM.PN ---
Subjective - Date & Time of Evaluation Date of Evaluation: 06/14/18 Time of Evaluation: 08:59 - Subjective Subjective: seen and examined notes reviewed afebrile c/o dry cough Objective - Vital Signs/Intake and Output Vital Signs (last 24 hours): Temp Pulse Resp BP Pulse Ox 98.1 F 95 H 18 134/81 100 06/14/18 07:00 06/14/18 07:00 06/14/18 07:00 06/14/18 07:00 06/14/18 07:00 Intake and Output: 06/14/18 06/14/18 06:59 18:59 Intake Total 560 Balance 560 - Medications Medications: Current Medications Acetaminophen (Tylenol 325mg Tab) 650 mg PO Q4 PRN PRN Reason: Fever >100.4 F Last Admin: 06/12/18 16:49 Dose: 650 mg Amlodipine Besylate (Norvasc) 5 mg PO DAILY [facility] Last Admin: 06/13/18 10:39 Dose: 5 mg Piperacillin Sod/Tazobactam (Sod 2.25 gm/ Sodium Chloride) 100 mls @ 200 mls/hr IVPB Q8H [facility]; Protocol Last Admin: 06/14/18 05:31 Dose: 200 mls/hr Loperamide HCl (Imodium) 2 mg PO Q6 PRN PRN Reason: Diarrhea - Labs Labs: 06/14/18 06:24 06/14/18 06:24 PT 11.7 SECONDS (9.7-12.2) 06/14/18 06:24 INR 1.1 06/14/18 06:24 APTT 30 SECONDS (21-34) 06/14/18 06:24 - Constitutional Appears: No Acute Distress, Chronically Ill - Head Exam Head Exam: NORMAL INSPECTION, NORMOCEPHALIC - Eye Exam Eye Exam: Normal appearance, PERRL - ENT Exam ENT Exam: Mucous Membranes Moist, Normal Exam - Neck Exam Neck Exam: Full ROM, Normal Inspection - Respiratory Exam Respiratory Exam: Decreased Breath Sounds, NORMAL BREATHING PATTERN - Cardiovascular Exam Cardiovascular Exam: REGULAR RHYTHM, RRR - GI/Abdominal Exam GI & Abdominal Exam: Distended, Soft - Extremities Exam Extremities Exam: Full ROM, Normal Inspection - Neurological Exam Neurological Exam: Alert, Awake, Oriented x3 - Psychiatric Exam Psychiatric exam: Normal Affect, Normal Mood - Skin Skin Exam: Dry, Intact Assessment and Plan (1) Dyspnea Status: Acute (2) Pleural effusion Status: Acute (3) ESRD (end stage renal disease) on dialysis Status: Acute (4) Fever Status: Acute - Assessment and Plan (Free Text) Assessment: plan for VATS / pleural biopsy noted hd today, uf as tolerated jamaal
[2018-06-14] MEDS: Epoetin Alfa 10,000 unit/ml Dialysis IV SCH (11:03)
--- NOTE | 2018-06-14 11:55 | CP.PCM.PN ---
Subjective - Date & Time of Evaluation Date of Evaluation: 06/14/18 Time of Evaluation: 09:00 - Subjective Subjective: no fever afb pending Objective - Vital Signs/Intake and Output Vital Signs (last 24 hours): Temp Pulse Resp BP Pulse Ox 98.1 F 100 H 18 134/81 100 06/14/18 07:00 06/14/18 07:10 06/14/18 07:00 06/14/18 07:00 06/14/18 07:00 Intake and Output: 06/14/18 06/14/18 06:59 18:59 Intake Total 560 Balance 560 - Medications Medications: Current Medications Acetaminophen (Tylenol 325mg Tab) 650 mg PO Q4 PRN PRN Reason: Fever >100.4 F Last Admin: 06/12/18 16:49 Dose: 650 mg Amlodipine Besylate (Norvasc) 5 mg PO DAILY [facility] Last Admin: 06/13/18 10:39 Dose: 5 mg Epoetin Milton (Procrit) 10,000 unit IV TTS [facility] Stop: 06/28/18 23:59 Last Admin: 06/14/18 11:03 Dose: 10,000 unit Heparin Sodium (Porcine) (Heparin) 3,700 units IVP TTS [facility] Stop: 06/28/18 23:00 Piperacillin Sod/Tazobactam (Sod 2.25 gm/ Sodium Chloride) 100 mls @ 200 mls/hr IVPB Q8H [facility]; Protocol Last Admin: 06/14/18 05:31 Dose: 200 mls/hr Loperamide HCl (Imodium) 2 mg PO Q6 PRN PRN Reason: Diarrhea - Labs Labs: 06/14/18 06:24 06/14/18 06:24 PT 11.7 SECONDS (9.7-12.2) 06/14/18 06:24 INR 1.1 06/14/18 06:24 APTT 30 SECONDS (21-34) 06/14/18 06:24 - Constitutional Appears: Non-toxic, Cachectic, Chronically Ill - Head Exam Head Exam: NORMOCEPHALIC - Eye Exam Eye Exam: absent: Scleral icterus - ENT Exam ENT Exam: Mucous Membranes Dry - Neck Exam Neck Exam: absent: Lymphadenopathy - Respiratory Exam Respiratory Exam: Decreased Breath Sounds - Cardiovascular Exam Cardiovascular Exam: REGULAR RHYTHM - GI/Abdominal Exam GI & Abdominal Exam: Distended, Soft - Rectal Exam Rectal Exam: Deferred - Exam Exam: NORMAL INSPECTION - Extremities Exam Extremities Exam: absent: Pedal Edema - Back Exam Back Exam: absent: CVA tenderness (L), CVA tenderness (R) - Neurological Exam Neurological Exam: Alert, Awake, CN II-XII Intact Assessment and Plan (1) Pleural effusion Status: Acute (2) Pneumonia Status: Acute (3) ESRD (end stage renal disease) on dialysis Status: Acute (4) Fever Status: Acute (5) Hypertensive chronic kidney disease with stage 5 chronic kidney disease or end stage renal disease Status: Acute - Assessment and Plan (Free Text) Assessment: cont iv rx and await afb
--- NOTE | 2018-06-14 17:19 | CP.PCM.PN ---
Subjective - Date & Time of Evaluation Date of Evaluation: 06/14/18 Time of Evaluation: 11:40 - Subjective Subjective: Patient seen and examined Sitting comfortably in no distress Denies cough For pleural biopsy/VATS tomorrow Continue antibiotics Continue hemodialysis Objective - Vital Signs/Intake and Output Vital Signs (last 24 hours): Temp Pulse Resp BP Pulse Ox 98.5 F 105 H 20 129/81 92 L 06/14/18 15:15 06/14/18 15:15 06/14/18 15:15 06/14/18 15:15 06/14/18 15:15 Intake and Output: 06/14/18 06/14/18 06:59 18:59 Intake Total 560 450 Balance 560 450 - Medications Medications: Current Medications Acetaminophen (Tylenol 325mg Tab) 650 mg PO Q4 PRN PRN Reason: Fever >100.4 F Last Admin: 06/12/18 16:49 Dose: 650 mg Amlodipine Besylate (Norvasc) 5 mg PO DAILY [facility] Last Admin: 06/14/18 10:00 Dose: Not Given Epoetin Milton (Procrit) 10,000 unit IV TTS [facility] Stop: 06/28/18 23:59 Last Admin: 06/14/18 11:03 Dose: 10,000 unit Heparin Sodium (Porcine) (Heparin) 3,700 units IVP TTS [facility] Stop: 06/28/18 23:00 Piperacillin Sod/Tazobactam (Sod 2.25 gm/ Sodium Chloride) 100 mls @ 200 mls/hr IVPB Q8H [facility]; Protocol Last Admin: 06/14/18 13:22 Dose: 200 mls/hr Loperamide HCl (Imodium) 2 mg PO Q6 PRN PRN Reason: Diarrhea - Labs Labs: 06/14/18 06:24 06/14/18 06:24 PT 11.7 SECONDS (9.7-12.2) 06/14/18 06:24 INR 1.1 06/14/18 06:24 APTT 30 SECONDS (21-34) 06/14/18 06:24 - Head Exam Head Exam: ATRAUMATIC, NORMOCEPHALIC - ENT Exam ENT Exam: Mucous Membranes Moist - Neck Exam Neck Exam: Normal Inspection - Respiratory Exam Respiratory Exam: Decreased Breath Sounds - Cardiovascular Exam Cardiovascular Exam: REGULAR RHYTHM - GI/Abdominal Exam GI & Abdominal Exam: Soft, Normal Bowel Sounds Assessment and Plan (1) Pleural effusion Assessment & Plan: Status post thoracentesis in the pleural fluid consistent with exudate Possible pleural biopsy tomorrow to rule out TB Continue antibiotics Status: Acute (2) ESRD (end stage renal disease) on dialysis Status: Acute
--- NOTE | 2018-06-14 21:38 | CP.PCM.PN ---
Subjective - Date & Time of Evaluation Date of Evaluation: 06/14/18 Time of Evaluation: 07:00 - Subjective Subjective: THORACIC SURGERY PROGRESS NOTE FOR DR. WHITAKER Patient seen and examined at bedside. Reports dry cough. Aware of plan for OR tomorrow. Objective - Vital Signs/Intake and Output Vital Signs (last 24 hours): Temp Pulse Resp BP Pulse Ox 98.5 F 105 H 20 129/81 92 L 06/14/18 15:15 06/14/18 15:15 06/14/18 15:15 06/14/18 15:15 06/14/18 15:15 Intake and Output: 06/14/18 06/15/18 18:59 06:59 Intake Total 450 Balance 450 - Medications Medications: Current Medications Acetaminophen (Tylenol 325mg Tab) 650 mg PO Q4 PRN PRN Reason: Fever >100.4 F Last Admin: 06/12/18 16:49 Dose: 650 mg Amlodipine Besylate (Norvasc) 5 mg PO DAILY [facility] Last Admin: 06/14/18 10:00 Dose: Not Given Epoetin Milton (Procrit) 10,000 unit IV TTS [facility] Stop: 06/28/18 23:59 Last Admin: 06/14/18 11:03 Dose: 10,000 unit Heparin Sodium (Porcine) (Heparin) 3,700 units IVP TTS [facility] Stop: 06/28/18 23:00 Piperacillin Sod/Tazobactam (Sod 2.25 gm/ Sodium Chloride) 100 mls @ 200 mls/hr IVPB Q8H [facility]; Protocol Last Admin: 06/14/18 13:22 Dose: 200 mls/hr Loperamide HCl (Imodium) 2 mg PO Q6 PRN PRN Reason: Diarrhea - Labs Labs: 06/14/18 06:24 06/14/18 06:24 PT 11.7 SECONDS (9.7-12.2) 06/14/18 06:24 INR 1.1 06/14/18 06:24 APTT 30 SECONDS (21-34) 06/14/18 06:24 - Constitutional Appears: Non-toxic, No Acute Distress - Respiratory Exam Respiratory Exam: NORMAL BREATHING PATTERN. absent: Respiratory Distress - Cardiovascular Exam Cardiovascular Exam: +S1, +S2 - GI/Abdominal Exam GI & Abdominal Exam: Soft. absent: Tenderness Assessment and Plan - Assessment and Plan (Free Text) Assessment: 47yo F with pleural effusions, r/o TB, malignancy - Plan for OR tomorrow for VATS, biopsy - NPO past midnight - Hold Heparin in AM - Discussed Plan with Dr. Xavi Recinos PGY-4
[2018-06-15] MEDS: Piperacillin/Tazobact 2.25 GM in Sodium Chloride 100 ML IVPB SCH ×3 (05:26→21:02)
[2018-06-15 07:39] LABS: BASO % 0.7 % (0.0-2.0); EOS # 0.3 K/uL (0.0-0.7); EOS % 10.1 % (0.0-4.0); HEMOGLOBIN 8.3 g/dL (11.0-16.0); LYMPH # 0.7 K/uL (1.0-4.3); LYMPH % 21.6 % (20.0-40.0); MEAN CELL VOLUME 98.1 fL (81.0-99.0); MEAN CORPUSCULAR HEMOGLOBIN 32.3 pg (27.0-31.0); MEAN CORPUSCULAR HGB CONC 32.9 g/dL (33.0-37.0); MEAN PLATELET VOLUME 8.5 fL (7.2-11.7); MONO # 0.5 K/uL (0.0-0.8); MONO % 15.1 % (0.0-10.0); NEUT # 1.8 K/uL (1.8-7.0); NEUT % 52.5 % (50.0-75.0); NRBC % 0.1 % (0.0-2.0); RBC 2.56 Mil/uL (3.80-5.20); RED CELL DISTRIBUTION WIDTH 16.1 % (11.5-14.5); WHITE BLOOD COUNT 3.4 K/uL (4.8-10.8)
[2018-06-15 07:42] LABS: ALB/GLOB RATIO 0.9 (1.0-2.1); ALBUMIN 3.4 g/dL (3.5-5.0); CALCIUM 10.2 mg/dl (8.6-10.4)
[2018-06-15 07:43] LABS: INR 1.1; PROTHROMBIN TIME 11.8 SECONDS (9.7-12.2)
--- NOTE | 2018-06-15 08:24 | CP.PCM.PN ---
Subjective - Date & Time of Evaluation Date of Evaluation: 06/15/18 Time of Evaluation: 08:15 - Subjective Subjective: Pt dry cough. Start to get SOB, no CP, no n/v Objective - Vital Signs/Intake and Output Vital Signs (last 24 hours): Temp Pulse Resp BP Pulse Ox 97.4 F L 111 H 18 112/74 95 06/15/18 07:00 06/15/18 07:00 06/15/18 07:00 06/15/18 07:00 06/15/18 07:00 Intake and Output: 06/15/18 06/15/18 06:59 18:59 Intake Total 210 Balance 210 - Medications Medications: Current Medications Acetaminophen (Tylenol 325mg Tab) 650 mg PO Q4 PRN PRN Reason: Fever >100.4 F Last Admin: 06/15/18 00:17 Dose: 650 mg Amlodipine Besylate (Norvasc) 5 mg PO DAILY [facility] Last Admin: 06/14/18 10:00 Dose: Not Given Epoetin Milton (Procrit) 10,000 unit IV TTS [facility] Stop: 06/28/18 23:59 Last Admin: 06/14/18 11:03 Dose: 10,000 unit Heparin Sodium (Porcine) (Heparin) 3,700 units IVP TTS [facility] Stop: 06/28/18 23:00 Piperacillin Sod/Tazobactam (Sod 2.25 gm/ Sodium Chloride) 100 mls @ 200 mls/hr IVPB Q8H [facility]; Protocol Last Admin: 06/15/18 05:26 Dose: 200 mls/hr Loperamide HCl (Imodium) 2 mg PO Q6 PRN PRN Reason: Diarrhea - Labs Labs: 06/15/18 07:17 06/15/18 07:17 PT 11.8 SECONDS (9.7-12.2) 06/15/18 07:17 INR 1.1 06/15/18 07:17 APTT 33 SECONDS (21-34) 06/15/18 07:17 - Constitutional Appears: No Acute Distress - Eye Exam Eye Exam: Normal appearance - ENT Exam ENT Exam: Mucous Membranes Moist - Neck Exam Neck Exam: Full ROM. absent: Normal Inspection - Respiratory Exam Respiratory Exam: Decreased Breath Sounds. absent: Accessory Muscle Use, Rales, Rhonchi, Wheezes - Cardiovascular Exam Cardiovascular Exam: REGULAR RHYTHM, +S1, +S2. absent: Gallop, JVD - GI/Abdominal Exam GI & Abdominal Exam: Soft. absent: Guarding, Tenderness - Extremities Exam Extremities Exam: Full ROM, Normal Capillary Refill. absent: Calf Tenderness, Joint Swelling Assessment and Plan - Assessment and Plan (Free Text) Assessment: HTN, ESRD Pleural effusion s/p thoracentesis for OR today Cont supportive care
[2018-06-15] MEDS ORDERED: Bupivacaine Liposomal Inj 20 ml INJ ONE (12:57)
[2018-06-15] MEDS ORDERED: TALC PL SCH (13:00)
[2018-06-15] MEDS ORDERED: SODIUM CHLORIDE 0.9% PL SCH (13:00)
[2018-06-15] MEDS ORDERED: Midazolam 2 MG/2 ML VIAL ONE (13:05)
[2018-06-15] MEDS ORDERED: Propofol 10 mg/ml Inj (20 ML) ONE (13:05)
[2018-06-15] MEDS ORDERED: Bupivacaine HCl 0.5% PF (10 ml) Inj ONE ×2 (13:25→13:26)
[2018-06-15] MEDS ORDERED: Sodium Chloride 0.9% 20 ML IV ONE (13:25)
[2018-06-15] MEDS ORDERED: Lidocaine Hydrochloride 20 ML INJ ONE (13:26)
[2018-06-15] MEDS ORDERED: Talc 5 gm Sterile Powder PL ONE (13:26)
[2018-06-15] MEDS ORDERED: Sodium Chloride 0.9% 0 ML IV ONE (14:06)
--- NOTE | 2018-06-15 15:05 | PCM.SURG1 ---
Surgeon's Initial Post Op Note - Surgeon's Notes Surgeon: MD Vesta Model Maker Apprentice: Feng PGY3 Pre-Operative Diagnosis: Complicated left pleural effusion Operative Findings: left pleural effussions, inflammed pleura Post-Operative Diagnosis: Complicated left pleural effusion Operation Performed: Left video assisted thoracoscopy, pleural fluid drainage, pleural biopsy Specimen/Specimens Removed: left pleura, left pleural fluid Estimated Blood Loss: EBL {In ML}: 20 Date of Surgery/Procedure: 06/15/18 Time of Surgery/Procedure: 13:00
--- NOTE | 2018-06-15 15:21 | CP.PCM.PN ---
Subjective - Date & Time of Evaluation Date of Evaluation: 06/15/18 Time of Evaluation: 15:19 - Subjective Subjective: s/p VATS now Report QFT positve x 2 s/p dialysis 2/5 has been febrile Objective - Vital Signs/Intake and Output Vital Signs (last 24 hours): Temp Pulse Resp BP Pulse Ox 97.4 F L 111 H 18 112/74 95 06/15/18 07:00 06/15/18 07:00 06/15/18 07:00 06/15/18 07:00 06/15/18 07:00 Intake and Output: 06/15/18 06/15/18 06:59 18:59 Intake Total 210 304 Balance 210 304 - Medications Medications: Current Medications Acetaminophen (Tylenol 325mg Tab) 650 mg PO Q4 PRN PRN Reason: Fever >100.4 F Last Admin: 06/15/18 00:17 Dose: 650 mg Amlodipine Besylate (Norvasc) 5 mg PO DAILY [facility] Last Admin: 06/15/18 11:00 Dose: Not Given Epoetin [place] (Procrit) 10,000 unit IV TTS [facility] Stop: 06/28/18 23:59 Last Admin: 06/14/18 11:03 Dose: 10,000 unit Heparin Sodium (Porcine) (Heparin) 3,700 units IVP TTS [facility] Stop: 06/28/18 23:00 Piperacillin Sod/Tazobactam (Sod 2.25 gm/ Sodium Chloride) 100 mls @ 200 mls/hr IVPB Q8H [facility]; Protocol Last Admin: 06/15/18 12:45 Dose: 200 mls/hr Talc 2.5 gm/ Sodium Chloride 60 mls @ 0 mls/hr PL ONCE [facility] Stop: 06/16/18 13:01 Loperamide HCl (Imodium) 2 mg PO Q6 PRN PRN Reason: Diarrhea Morphine Sulfate (Morphine) 1 mg IVP Q10M PRN PRN Reason: Pain, moderate (4-7) Stop: 06/15/18 17:05 Ondansetron HCl (Zofran Inj) 4 mg IVP ONCE PRN PRN Reason: Nausea/Vomiting Stop: 06/15/18 17:06 Oxycodone/Acetaminophen (Percocet 5/325 Mg Tab) 1 tab PO Q6H PRN PRN Reason: Pain, severe (8-10) Stop: 02/09/19 15:08 - Labs Labs: 06/15/18 07:17 06/15/18 07:17 PT 11.8 SECONDS (9.7-12.2) 06/15/18 07:17 INR 1.1 06/15/18 07:17 APTT 33 SECONDS (21-34) 06/15/18 07:17 - Constitutional Appears: No Acute Distress, Chronically Ill - Head Exam Head Exam: ATRAUMATIC, NORMAL INSPECTION - Eye Exam Eye Exam: EOMI, Normal appearance - Neck Exam Neck Exam: Normal Inspection. absent: Tenderness - Respiratory Exam Respiratory Exam: Decreased Breath Sounds, NORMAL BREATHING PATTERN - Cardiovascular Exam Cardiovascular Exam: REGULAR RHYTHM, +S1 - GI/Abdominal Exam GI & Abdominal Exam: Soft. absent: Tenderness - Extremities Exam Extremities Exam: Normal Inspection. absent: Tenderness - Neurological Exam Neurological Exam: Awake, CN II-XII Intact - Skin Skin Exam: Dry, Warm Assessment and Plan (1) Pneumonia Status: Acute (2) Pleural effusion Status: Acute (3) ESRD (end stage renal disease) on dialysis Status: Acute (4) Hypertensive chronic kidney disease with stage 5 chronic kidney disease or end stage renal disease Status: Acute - Assessment and Plan (Free Text) Plan: Dialysis in AM Rx for TB as per ID
--- NOTE | 2018-06-15 16:46 | RAD ---
Date of service: 06/15/2018 HISTORY: s/p VATS/chest tube (L) COMPARISON: Portable chest 06/10/2018. FINDINGS: LUNGS: Left chest tube identified inserted in the interval terminating at the left apex. Patient's left hand obscures left base. No pleural effusion suspected. No pneumothorax bilaterally. Right pleural effusion has increased and appears moderate to severe. Underlying infiltrate is difficult to exclude at the right lung base. PLEURA: As above. CARDIOVASCULAR: No aortic atherosclerotic calcification present. Stable cardiomediastinal silhouette. Right central venous dialysis catheter unchanged in position. No pulmonary vascular congestion. OSSEOUS STRUCTURES: No significant abnormalities. VISUALIZED UPPER ABDOMEN: Normal. OTHER FINDINGS: None. IMPRESSION: Interval left chest tube deployment with no pneumothorax bilaterally. No left pleural effusion evident at this time. Increased right pleural effusion now moderate to severe volume. Underlying airspace disease not excluded. No pulmonary vascular congestion.
--- NOTE | 2018-06-15 18:07 | CP.PCM.PN ---
Subjective - Date & Time of Evaluation Date of Evaluation: 06/15/18 Time of Evaluation: 17:40 - Subjective Subjective: Patient seen and examined Sitting comfortably in no distress Status post pleural biopsy, drainage of fluid and VATS Objective - Vital Signs/Intake and Output Vital Signs (last 24 hours): Temp Pulse Resp BP Pulse Ox 97.9 F 94 H 18 140/73 96 06/15/18 16:45 06/15/18 16:45 06/15/18 17:16 06/15/18 16:45 06/15/18 16:45 Intake and Output: 06/15/18 06/15/18 06:59 18:59 Intake Total 210 404 Output Total 80 Balance 210 324 - Medications Medications: Current Medications Acetaminophen (Tylenol 325mg Tab) 650 mg PO Q4 PRN PRN Reason: Fever >100.4 F Last Admin: 06/15/18 00:17 Dose: 650 mg Amlodipine Besylate (Norvasc) 5 mg PO DAILY [facility] Last Admin: 06/15/18 11:00 Dose: Not Given Epoetin Milton (Procrit) 10,000 unit IV TTS [facility] Stop: 06/28/18 23:59 Last Admin: 06/14/18 11:03 Dose: 10,000 unit Heparin Sodium (Porcine) (Heparin) 3,700 units IVP TTS [facility] Stop: 06/28/18 23:00 Piperacillin Sod/Tazobactam (Sod 2.25 gm/ Sodium Chloride) 100 mls @ 200 mls/hr IVPB Q8H [facility]; Protocol Last Admin: 06/15/18 12:45 Dose: 200 mls/hr Talc 2.5 gm/ Sodium Chloride 60 mls @ 0 mls/hr PL ONCE [facility] Stop: 06/16/18 13:01 Loperamide HCl (Imodium) 2 mg PO Q6 PRN PRN Reason: Diarrhea Oxycodone/Acetaminophen (Percocet 5/325 Mg Tab) 1 tab PO Q6H PRN PRN Reason: Pain, severe (8-10) Stop: 06/18/18 15:08 - Labs Labs: 06/15/18 07:17 06/15/18 07:17 PT 11.8 SECONDS (9.7-12.2) 06/15/18 07:17 INR 1.1 06/15/18 07:17 APTT 33 SECONDS (21-34) 06/15/18 07:17 - Head Exam Head Exam: ATRAUMATIC, NORMOCEPHALIC - ENT Exam ENT Exam: Mucous Membranes Moist - Neck Exam Neck Exam: Normal Inspection - Respiratory Exam Respiratory Exam: Clear to Ausculation Bilateral - Cardiovascular Exam Cardiovascular Exam: REGULAR RHYTHM - GI/Abdominal Exam GI & Abdominal Exam: Soft, Normal Bowel Sounds Assessment and Plan (1) Pleural effusion Assessment & Plan: Status post pleural biopsy and drainage of fluid Follow-up pathology report and AFB Continue antibiotics Status: Acute (2) ESRD (end stage renal disease) on dialysis Status: Acute
--- NOTE | 2018-06-15 19:29 | CP.PCM.PN ---
Subjective - Date & Time of Evaluation Date of Evaluation: 06/15/18 Time of Evaluation: 07:00 - Subjective Subjective: afeb AFB pending s/p VATS Objective - Vital Signs/Intake and Output Vital Signs (last 24 hours): Temp Pulse Resp BP Pulse Ox 97.2 F L 95 H 18 133/67 97 06/15/18 17:15 06/15/18 19:20 06/15/18 17:16 06/15/18 17:15 06/15/18 17:15 Intake and Output: 06/15/18 06/16/18 18:59 06:59 Intake Total 404 Output Total 80 Balance 324 - Medications Medications: Current Medications Acetaminophen (Tylenol 325mg Tab) 650 mg PO Q4 PRN PRN Reason: Fever >100.4 F Last Admin: 06/15/18 00:17 Dose: 650 mg Amlodipine Besylate (Norvasc) 5 mg PO DAILY [facility] Last Admin: 06/15/18 11:00 Dose: Not Given Epoetin Milton (Procrit) 10,000 unit IV TTS [facility] Stop: 06/28/18 23:59 Last Admin: 06/14/18 11:03 Dose: 10,000 unit Heparin Sodium (Porcine) (Heparin) 3,700 units IVP TTS [facility] Stop: 06/28/18 23:00 Piperacillin Sod/Tazobactam (Sod 2.25 gm/ Sodium Chloride) 100 mls @ 200 mls/hr IVPB Q8H [facility]; Protocol Last Admin: 06/15/18 12:45 Dose: 200 mls/hr Talc 2.5 gm/ Sodium Chloride 60 mls @ 0 mls/hr PL ONCE [facility] Stop: 06/16/18 13:01 Loperamide HCl (Imodium) 2 mg PO Q6 PRN PRN Reason: Diarrhea Oxycodone/Acetaminophen (Percocet 5/325 Mg Tab) 1 tab PO Q6H PRN PRN Reason: Pain, severe (8-10) Stop: 06/18/18 15:08 - Labs Labs: 06/15/18 07:17 06/15/18 07:17 PT 11.8 SECONDS (9.7-12.2) 06/15/18 07:17 INR 1.1 06/15/18 07:17 APTT 33 SECONDS (21-34) 06/15/18 07:17 - Constitutional Appears: Well - Head Exam Head Exam: ATRAUMATIC, NORMAL INSPECTION, NORMOCEPHALIC - Eye Exam Eye Exam: EOMI, Normal appearance, PERRL Pupil Exam: NORMAL ACCOMODATION, PERRL - ENT Exam ENT Exam: Mucous Membranes Moist, Normal Exam - Neck Exam Neck Exam: Full ROM, Normal Inspection. absent: Lymphadenopathy - Respiratory Exam Respiratory Exam: Clear to Ausculation Bilateral, NORMAL BREATHING PATTERN - Cardiovascular Exam Cardiovascular Exam: REGULAR RHYTHM, +S1, +S2. absent: Murmur - GI/Abdominal Exam GI & Abdominal Exam: Soft, Normal Bowel Sounds. absent: Tenderness - Rectal Exam Rectal Exam: NORMAL INSPECTION - Exam Exam: Circumcision, NORMAL INSPECTION. absent: Scrotal Swelling, Testicular Tenderness, Uretheral Discharge, Testicular Vertical Lie, Bladder Distension External exam: NORMAL EXTERNAL EXAM. absent: Ecchymosis, Erythema, Lacerations, Lesions, Swelling Speculum exam: NORMAL SPECULUM EXAM. absent: Cervical Discharge, Erythema, Foreign Body, Laceration, Tissue, Vaginal Bleeding, Vaginal Discharge Bimanual exam: NORMAL BIMANUAL EXAM. absent: Adenexal Mass, Adnexal, Cervical Motion Tendernes, Uterine Enlargement, Uterine Tenderness - Extremities Exam Extremities Exam: Full ROM, Normal Capillary Refill, Normal Inspection. absent: Joint Swelling, Pedal Edema - Back Exam Back Exam: NORMAL INSPECTION - Neurological Exam Neurological Exam: Alert, Awake, CN II-XII Intact, Normal Gait, Oriented x3 - Psychiatric Exam Psychiatric exam: Normal Affect, Normal Mood - Skin Skin Exam: Dry, Intact, Normal Color, Warm Assessment and Plan (1) Pleural effusion Status: Acute (2) Pneumonia Status: Acute (3) ESRD (end stage renal disease) on dialysis Status: Acute (4) Fever Status: Acute (5) Hypertensive chronic kidney disease with stage 5 chronic kidney disease or end stage renal disease Status: Acute - Assessment and Plan (Free Text) Assessment: cont HD await pleural BX reporty consider [facility] rx on discharge
[2018-06-15] MEDS: Oxycodone/Acetaminophen 5/325 mg Tab PO PRN (23:52)
[2018-06-16] MEDS: Piperacillin/Tazobact 2.25 GM in Sodium Chloride 100 ML IVPB SCH ×2 (05:22→12:44)
[2018-06-16 06:25] LABS: BASO % 0.7 % (0.0-2.0); EOS # 0.3 K/uL (0.0-0.7); EOS % 6.8 % (0.0-4.0); LYMPH # 0.7 K/uL (1.0-4.3); LYMPH % 17.5 % (20.0-40.0); MEAN CELL VOLUME 97.9 fL (81.0-99.0); MEAN CORPUSCULAR HEMOGLOBIN 31.7 pg (27.0-31.0); MEAN CORPUSCULAR HGB CONC 32.4 g/dL (33.0-37.0); MEAN PLATELET VOLUME 7.9 fL (7.2-11.7); MONO # 0.5 K/uL (0.0-0.8); NEUT # 2.4 K/uL (1.8-7.0); RBC 2.51 Mil/uL (3.80-5.20); RED CELL DISTRIBUTION WIDTH 15.8 % (11.5-14.5); WHITE BLOOD COUNT 3.8 K/uL (4.8-10.8)
[2018-06-16 06:45] LABS: ALB/GLOB RATIO 0.9 (1.0-2.1); ALBUMIN 3.2 g/dL (3.5-5.0); CALCIUM 10.2 mg/dl (8.6-10.4)
[2018-06-16] MEDS: Epoetin Alfa 10,000 unit/ml Dialysis IV SCH (09:15)
--- NOTE | 2018-06-16 10:51 | CP.PCM.PN ---
Subjective - Date & Time of Evaluation Date of Evaluation: 06/16/18 Time of Evaluation: 10:48 - Subjective Subjective: s/p VATS, pleural bx seen at dialysis now; UF 1500ml afebrile now, BP stable afb results pending Hg low- on EPO Objective - Vital Signs/Intake and Output Vital Signs (last 24 hours): Temp Pulse Resp BP Pulse Ox 98.6 F 98 H 18 153/78 H 95 06/16/18 07:35 06/16/18 07:35 06/16/18 07:35 06/16/18 07:35 06/16/18 07:35 Intake and Output: 06/16/18 06/16/18 06:59 18:59 Intake Total 320 Output Total 70 Balance 250 - Medications Medications: Current Medications Acetaminophen (Tylenol 325mg Tab) 650 mg PO Q4 PRN PRN Reason: Fever >100.4 F Last Admin: 06/15/18 00:17 Dose: 650 mg Amlodipine Besylate (Norvasc) 5 mg PO DAILY [facility] Last Admin: 06/15/18 11:00 Dose: Not Given Epoetin [place] (Procrit) 10,000 unit IV TTS [facility] Stop: 06/28/18 23:59 Last Admin: 06/16/18 09:15 Dose: 10,000 unit Heparin Sodium (Porcine) (Heparin) 3,700 units IVP TTS [facility] Stop: 06/28/18 23:00 Piperacillin Sod/Tazobactam (Sod 2.25 gm/ Sodium Chloride) 100 mls @ 200 mls/hr IVPB Q8H [facility]; Protocol Last Admin: 06/16/18 05:22 Dose: 200 mls/hr Talc 2.5 gm/ Sodium Chloride 60 mls @ 0 mls/hr PL ONCE [facility] Stop: 06/16/18 13:01 Loperamide HCl (Imodium) 2 mg PO Q6 PRN PRN Reason: Diarrhea Oxycodone/Acetaminophen (Percocet 5/325 Mg Tab) 1 tab PO Q6H PRN PRN Reason: Pain, severe (8-10) Stop: 06/18/18 15:08 Last Admin: 06/15/18 23:52 Dose: 1 tab - Labs Labs: 06/16/18 06:17 06/16/18 06:17 PT 11.8 SECONDS (9.7-12.2) 06/15/18 07:17 INR 1.1 06/15/18 07:17 APTT 33 SECONDS (21-34) 06/15/18 07:17 - Constitutional Appears: No Acute Distress, Chronically Ill - Head Exam Head Exam: ATRAUMATIC, NORMAL INSPECTION - Eye Exam Eye Exam: EOMI, Normal appearance - Neck Exam Neck Exam: Normal Inspection. absent: Tenderness - Respiratory Exam Respiratory Exam: Decreased Breath Sounds, Respiratory Distress - Cardiovascular Exam Cardiovascular Exam: REGULAR RHYTHM, +S1 - GI/Abdominal Exam GI & Abdominal Exam: Soft. absent: Tenderness - Extremities Exam Extremities Exam: Normal Inspection. absent: Tenderness - Neurological Exam Neurological Exam: Awake, CN II-XII Intact - Skin Skin Exam: Dry, Warm Assessment and Plan (1) Pneumonia Status: Acute (2) Pleural effusion Status: Acute (3) ESRD (end stage renal disease) on dialysis Status: Acute (4) Hypertensive chronic kidney disease with stage 5 chronic kidney disease or end stage renal disease Status: Acute - Assessment and Plan (Free Text) Plan: dialysis now and TTS chest tube management await pleural bx results await afbs check iron stores transfuse prbcs if needed
--- NOTE | 2018-06-16 12:16 | CP.PCM.PN ---
Subjective - Date & Time of Evaluation Date of Evaluation: 06/16/18 Time of Evaluation: 07:30 - Subjective Subjective: CT Surgery: Dr. Lemons Pt seen and examined. No acute overnight events. s/p L VATS with lung/pleural biopsy; POD#1. States she feels well and denies any complaints at this time. States pain is well controlled. Denies fevers/chills. Objective - Vital Signs/Intake and Output Vital Signs (last 24 hours): Temp Pulse Resp BP Pulse Ox 98.6 F 110 H 24 124/82 98 06/16/18 09:10 06/16/18 09:10 06/16/18 09:05 06/16/18 11:40 06/16/18 09:10 Intake and Output: 06/16/18 06/16/18 06:59 18:59 Intake Total 320 Output Total 70 Balance 250 - Medications Medications: Current Medications Acetaminophen (Tylenol 325mg Tab) 650 mg PO Q4 PRN PRN Reason: Fever >100.4 F Last Admin: 06/15/18 00:17 Dose: 650 mg Amlodipine Besylate (Norvasc) 5 mg PO DAILY [facility] Last Admin: 06/15/18 11:00 Dose: Not Given Epoetin Milton (Procrit) 10,000 unit IV TTS [facility] Stop: 06/28/18 23:59 Last Admin: 06/16/18 09:15 Dose: 10,000 unit Heparin Sodium (Porcine) (Heparin) 3,700 units IVP TTS [facility] Stop: 06/28/18 23:00 Piperacillin Sod/Tazobactam (Sod 2.25 gm/ Sodium Chloride) 100 mls @ 200 mls/hr IVPB Q8H [facility]; Protocol Last Admin: 06/16/18 05:22 Dose: 200 mls/hr Talc 2.5 gm/ Sodium Chloride 60 mls @ 0 mls/hr PL ONCE [facility] Stop: 06/16/18 13:01 Loperamide HCl (Imodium) 2 mg PO Q6 PRN PRN Reason: Diarrhea Oxycodone/Acetaminophen (Percocet 5/325 Mg Tab) 1 tab PO Q6H PRN PRN Reason: Pain, severe (8-10) Stop: 06/18/18 15:08 Last Admin: 06/15/18 23:52 Dose: 1 tab - Labs Labs: 06/16/18 06:17 06/16/18 06:17 PT 11.8 SECONDS (9.7-12.2) 06/15/18 07:17 INR 1.1 06/15/18 07:17 APTT 33 SECONDS (21-34) 06/15/18 07:17 - Constitutional Appears: Well, No Acute Distress - Head Exam Head Exam: ATRAUMATIC, NORMOCEPHALIC - Eye Exam Eye Exam: Normal appearance - ENT Exam ENT Exam: Mucous Membranes Moist - Respiratory Exam Respiratory Exam: NORMAL BREATHING PATTERN Additional comments: L CT in place on suction; no air leak. 150cc serosang output since surgery. Dressing C/D/I - Cardiovascular Exam Cardiovascular Exam: Tachycardia - GI/Abdominal Exam GI & Abdominal Exam: Soft. absent: Tenderness - Neurological Exam Neurological Exam: Alert, Awake, Oriented x3 - Skin Skin Exam: Dry, Intact, Warm Assessment and Plan - Assessment and Plan (Free Text) Assessment: 47F s/p L VATS with lung & pleural biopsy with CT placement; POD#1 Plan: - cont chest tube on suction - monitor output - daily CXR - d/w Dr. Vesta Boogie
[2018-06-16] MEDS: Oxycodone/Acetaminophen 5/325 mg Tab PO PRN (12:43)
--- NOTE | 2018-06-16 14:24 | RAD ---
Date of service: 06/16/2018 HISTORY: f/u chest tube COMPARISON: Portable chest 06/15/2018. FINDINGS: LUNGS: Right center venous dialysis catheter unchanged in position as well as left chest tube. Right pleural effusion not significantly changed. None is seen at the left. No pneumothorax bilaterally. Underlying mid to inferior right sided pulmonary consolidation question, borderline at the left. Pulmonary vascular congestion appears to be developing to. Reticular markings are somewhat increased at the left greater than right chest supporting congestion diagnosis. PLEURA: As above. CARDIOVASCULAR: No aortic atherosclerotic calcification present. There is size obscured by opacity described above. OSSEOUS STRUCTURES: No significant abnormalities. VISUALIZED UPPER ABDOMEN: Normal. OTHER FINDINGS: None. IMPRESSION: Moderate right pleural effusion persistent without interval improvement with underlying atelectasis or infiltrate remaining at the mid to inferior right lung zone. Developing left basilar airspace disease is in question. Pulmonary vascular congestion appears to developing as well
--- NOTE | 2018-06-16 18:17 | CP.PCM.PN ---
Subjective - Date & Time of Evaluation Date of Evaluation: 06/16/18 Time of Evaluation: 18:14 - Subjective Subjective: S: Feels better. No SOB. No fever. Objective - Vital Signs/Intake and Output Vital Signs (last 24 hours): Temp Pulse Resp BP Pulse Ox 99.4 F 120 H 20 126/77 97 06/16/18 15:27 06/16/18 15:27 06/16/18 15:27 06/16/18 15:27 06/16/18 15:27 Intake and Output: 06/16/18 06/16/18 06:59 18:59 Intake Total 320 Output Total 70 Balance 250 - Medications Medications: Current Medications Acetaminophen (Tylenol 325mg Tab) 650 mg PO Q4 PRN PRN Reason: Fever >100.4 F Last Admin: 06/15/18 00:17 Dose: 650 mg Amlodipine Besylate (Norvasc) 5 mg PO DAILY [facility] Last Admin: 06/16/18 10:00 Dose: Not Given Epoetin Milton (Procrit) 10,000 unit IV TTS [facility] Stop: 06/28/18 23:59 Last Admin: 06/16/18 09:15 Dose: 10,000 unit Heparin Sodium (Porcine) (Heparin) 3,700 units IVP TTS [facility] Stop: 06/28/18 23:00 Loperamide HCl (Imodium) 2 mg PO Q6 PRN PRN Reason: Diarrhea Oxycodone/Acetaminophen (Percocet 5/325 Mg Tab) 1 tab PO Q6H PRN PRN Reason: Pain, severe (8-10) Stop: 06/18/18 15:08 Last Admin: 06/16/18 12:43 Dose: 1 tab - Labs Labs: 06/16/18 06:17 06/16/18 06:17 PT 11.8 SECONDS (9.7-12.2) 06/15/18 07:17 INR 1.1 06/15/18 07:17 APTT 33 SECONDS (21-34) 06/15/18 07:17 - Constitutional Appears: Chronically Ill - Head Exam Head Exam: NORMAL INSPECTION - Neck Exam Neck Exam: Normal Inspection - Respiratory Exam Respiratory Exam: Decreased Breath Sounds (left chest tube noted) - Cardiovascular Exam Cardiovascular Exam: Tachycardia, REGULAR RHYTHM - GI/Abdominal Exam GI & Abdominal Exam: Soft - Rectal Exam Rectal Exam: Deferred - Extremities Exam Extremities Exam: absent: Pedal Edema - Neurological Exam Neurological Exam: Alert Assessment and Plan (1) Pleural effusion Status: Acute (2) ESRD (end stage renal disease) on dialysis Status: Acute - Assessment and Plan (Free Text) Assessment: A/P: s/p pleural biopsy. Continue medications and dialysis
--- NOTE | 2018-06-16 18:23 | CP.PCM.PN ---
Subjective - Date & Time of Evaluation Date of Evaluation: 06/16/18 Time of Evaluation: 10:45 - Subjective Subjective: Patient seen and examined Status post pleural biopsy and drainage of fluid Complaining of slight cough Afebrile Seen during hemodialysis Objective - Vital Signs/Intake and Output Vital Signs (last 24 hours): Temp Pulse Resp BP Pulse Ox 99.4 F 120 H 20 126/77 97 06/16/18 15:27 06/16/18 15:27 06/16/18 15:27 06/16/18 15:27 06/16/18 15:27 Intake and Output: 06/16/18 06/16/18 06:59 18:59 Intake Total 320 Output Total 70 Balance 250 - Medications Medications: Current Medications Acetaminophen (Tylenol 325mg Tab) 650 mg PO Q4 PRN PRN Reason: Fever >100.4 F Last Admin: 06/15/18 00:17 Dose: 650 mg Amlodipine Besylate (Norvasc) 5 mg PO DAILY [facility] Last Admin: 06/16/18 10:00 Dose: Not Given Epoetin [place] (Procrit) 10,000 unit IV TTS [facility] Stop: 06/28/18 23:59 Last Admin: 06/16/18 09:15 Dose: 10,000 unit Heparin Sodium (Porcine) (Heparin) 3,700 units IVP TTS [facility] Stop: 06/28/18 23:00 Loperamide HCl (Imodium) 2 mg PO Q6 PRN PRN Reason: Diarrhea Oxycodone/Acetaminophen (Percocet 5/325 Mg Tab) 1 tab PO Q6H PRN PRN Reason: Pain, severe (8-10) Stop: 06/18/18 15:08 Last Admin: 06/16/18 12:43 Dose: 1 tab - Labs Labs: 06/16/18 06:17 06/16/18 06:17 PT 11.8 SECONDS (9.7-12.2) 06/15/18 07:17 INR 1.1 06/15/18 07:17 APTT 33 SECONDS (21-34) 06/15/18 07:17 - Head Exam Head Exam: ATRAUMATIC, NORMOCEPHALIC - ENT Exam ENT Exam: Mucous Membranes Moist - Neck Exam Neck Exam: Normal Inspection - Respiratory Exam Respiratory Exam: Decreased Breath Sounds - Cardiovascular Exam Cardiovascular Exam: REGULAR RHYTHM - GI/Abdominal Exam GI & Abdominal Exam: Normal Bowel Sounds Assessment and Plan (1) Pleural effusion Assessment & Plan: Follow-up pathology report Continue antibiotics Continue hemodialysis 2 AFB smear negative Status: Acute (2) ESRD (end stage renal disease) on dialysis Status: Acute
--- NOTE | 2018-06-16 18:58 | CP.PCM.PN ---
Subjective - Date & Time of Evaluation Date of Evaluation: 06/16/18 Time of Evaluation: 09:00 - Subjective Subjective: afeb s/p VATS/ pleural Bx path pending Objective - Vital Signs/Intake and Output Vital Signs (last 24 hours): Temp Pulse Resp BP Pulse Ox 99.4 F 120 H 20 126/77 97 06/16/18 15:27 06/16/18 15:27 06/16/18 15:27 06/16/18 15:27 06/16/18 15:27 Intake and Output: 06/16/18 06/16/18 06:59 18:59 Intake Total 320 Output Total 70 Balance 250 - Medications Medications: Current Medications Acetaminophen (Tylenol 325mg Tab) 650 mg PO Q4 PRN PRN Reason: Fever >100.4 F Last Admin: 06/15/18 00:17 Dose: 650 mg Amlodipine Besylate (Norvasc) 5 mg PO DAILY [facility] Last Admin: 06/16/18 10:00 Dose: Not Given Epoetin Milton (Procrit) 10,000 unit IV TTS [facility] Stop: 06/28/18 23:59 Last Admin: 06/16/18 09:15 Dose: 10,000 unit Heparin Sodium (Porcine) (Heparin) 3,700 units IVP TTS [facility] Stop: 06/28/18 23:00 Loperamide HCl (Imodium) 2 mg PO Q6 PRN PRN Reason: Diarrhea Oxycodone/Acetaminophen (Percocet 5/325 Mg Tab) 1 tab PO Q6H PRN PRN Reason: Pain, severe (8-10) Stop: 06/18/18 15:08 Last Admin: 06/16/18 12:43 Dose: 1 tab - Labs Labs: 06/16/18 06:17 06/16/18 06:17 PT 11.8 SECONDS (9.7-12.2) 06/15/18 07:17 INR 1.1 06/15/18 07:17 APTT 33 SECONDS (21-34) 06/15/18 07:17 - Constitutional Appears: Non-toxic, Cachectic, Chronically Ill - Head Exam Head Exam: NORMOCEPHALIC - Eye Exam Eye Exam: absent: Scleral icterus - ENT Exam ENT Exam: Mucous Membranes Dry - Neck Exam Neck Exam: absent: Lymphadenopathy - Respiratory Exam Respiratory Exam: Decreased Breath Sounds, Prolonged Expiratory Phase, Rhonchi - Cardiovascular Exam Cardiovascular Exam: REGULAR RHYTHM, +S1, +S2 - GI/Abdominal Exam GI & Abdominal Exam: Distended, Soft - Rectal Exam Rectal Exam: Deferred - Exam Exam: NORMAL INSPECTION - Extremities Exam Extremities Exam: absent: Pedal Edema - Back Exam Back Exam: absent: CVA tenderness (L), CVA tenderness (R) - Neurological Exam Neurological Exam: Alert, Awake, Oriented x3 - Psychiatric Exam Psychiatric exam: Depressed Assessment and Plan (1) Pleural effusion Status: Acute (2) Pneumonia Status: Acute (3) ESRD (end stage renal disease) on dialysis Status: Acute (4) Fever Status: Acute (5) Hypertensive chronic kidney disease with stage 5 chronic kidney disease or end stage renal disease Status: Acute - Assessment and Plan (Free Text) Assessment: cont rx as ordered await bx
[2018-06-17 07:20] LABS: HEMOGLOBIN 7.9 g/dL (11.0-16.0); MEAN CELL VOLUME 98.7 fL (81.0-99.0); MEAN CORPUSCULAR HEMOGLOBIN 32.8 pg (27.0-31.0); MEAN CORPUSCULAR HGB CONC 33.2 g/dL (33.0-37.0); MEAN PLATELET VOLUME 8.5 fL (7.2-11.7); RBC 2.41 Mil/uL (3.80-5.20); RED CELL DISTRIBUTION WIDTH 16.1 % (11.5-14.5); WHITE BLOOD COUNT 4.6 K/uL (4.8-10.8)
--- NOTE | 2018-06-17 08:22 | CP.PCM.PN ---
Subjective - Date & Time of Evaluation Date of Evaluation: 06/17/18 Time of Evaluation: 08:16 - Subjective Subjective: SURGERY NOTE FOR DR. MAO 47F seen and examined at bedside. Patient denies chest pain, denies shortness of breath, fevers overnight. Objective - Vital Signs/Intake and Output Vital Signs (last 24 hours): Temp Pulse Resp BP Pulse Ox 98.3 F 100 H 18 144/78 94 L 06/17/18 07:00 06/17/18 07:00 06/17/18 07:00 06/17/18 07:00 06/17/18 07:00 Intake and Output: 06/17/18 06/17/18 06:59 18:59 Intake Total 350 Output Total 32 Balance 318 - Medications Medications: Current Medications Acetaminophen (Tylenol 325mg Tab) 650 mg PO Q4 PRN PRN Reason: Fever >100.4 F Last Admin: 06/17/18 00:33 Dose: 650 mg Amlodipine Besylate (Norvasc) 5 mg PO DAILY [facility] Last Admin: 06/16/18 10:00 Dose: Not Given Epoetin [place] (Procrit) 10,000 unit IV TTS [facility] Stop: 06/28/18 23:59 Last Admin: 06/16/18 09:15 Dose: 10,000 unit Heparin Sodium (Porcine) (Heparin) 3,700 units IVP TTS [facility] Stop: 06/28/18 23:00 Loperamide HCl (Imodium) 2 mg PO Q6 PRN PRN Reason: Diarrhea Oxycodone/Acetaminophen (Percocet 5/325 Mg Tab) 1 tab PO Q6H PRN PRN Reason: Pain, severe (8-10) Stop: 06/18/18 15:08 Last Admin: 06/16/18 12:43 Dose: 1 tab - Labs Labs: 06/17/18 07:02 06/16/18 06:17 PT 11.8 SECONDS (9.7-12.2) 06/15/18 07:17 INR 1.1 06/15/18 07:17 APTT 33 SECONDS (21-34) 06/15/18 07:17 - Constitutional Appears: Non-toxic, No Acute Distress - Respiratory Exam Respiratory Exam: NORMAL BREATHING PATTERN Additional comments: chest tube in place left chest tube - 30cc/24hrs serosang, no air leak Dressing CDI - Cardiovascular Exam Cardiovascular Exam: REGULAR RHYTHM, +S1, +S2 - GI/Abdominal Exam GI & Abdominal Exam: Soft. absent: Distended, Firm, Guarding, Rigid, Rebound - Neurological Exam Neurological Exam: Alert, Awake Assessment and Plan - Assessment and Plan (Free Text) Assessment: 47F left VATs and pleural biopsy POD#2 Plan: - currently on waterseal - f/u pathology - F/u CT output Further recs per Dr. Dayanara Toney, PGY3
--- NOTE | 2018-06-17 08:29 | CP.PCM.PN ---
Subjective - Date & Time of Evaluation Date of Evaluation: 06/17/18 Time of Evaluation: 08:10 - Subjective Subjective: Pt feels better; [place] dec SOB,no unusual CP, no n/v, no diarrhea Also dec in dry cough, Objective - Vital Signs/Intake and Output Vital Signs (last 24 hours): Temp Pulse Resp BP Pulse Ox 98.3 F 100 H 18 144/78 94 L 06/17/18 07:00 06/17/18 07:00 06/17/18 07:00 06/17/18 07:00 06/17/18 07:00 Intake and Output: 06/17/18 06/17/18 06:59 18:59 Intake Total 350 Output Total 32 Balance 318 - Medications Medications: Current Medications Acetaminophen (Tylenol 325mg Tab) 650 mg PO Q4 PRN PRN Reason: Fever >100.4 F Last Admin: 06/17/18 00:33 Dose: 650 mg Amlodipine Besylate (Norvasc) 5 mg PO DAILY [facility] Last Admin: 06/16/18 10:00 Dose: Not Given Epoetin [place] (Procrit) 10,000 unit IV TTS [facility] Stop: 06/28/18 23:59 Last Admin: 06/16/18 09:15 Dose: 10,000 unit Heparin Sodium (Porcine) (Heparin) 3,700 units IVP TTS [facility] Stop: 06/28/18 23:00 Loperamide HCl (Imodium) 2 mg PO Q6 PRN PRN Reason: Diarrhea Oxycodone/Acetaminophen (Percocet 5/325 Mg Tab) 1 tab PO Q6H PRN PRN Reason: Pain, severe (8-10) Stop: 06/18/18 15:08 Last Admin: 06/16/18 12:43 Dose: 1 tab - Labs Labs: 06/17/18 07:02 06/16/18 06:17 PT 11.8 SECONDS (9.7-12.2) 06/15/18 07:17 INR 1.1 06/15/18 07:17 APTT 33 SECONDS (21-34) 06/15/18 07:17 - Constitutional Appears: No Acute Distress - Eye Exam Eye Exam: Normal appearance - ENT Exam ENT Exam: Mucous Membranes Moist - Neck Exam Neck Exam: Full ROM. absent: Lymphadenopathy - Respiratory Exam Respiratory Exam: Decreased Breath Sounds ((+) cj hest tube on left). absent: Rales, Rhonchi, Wheezes - Cardiovascular Exam Cardiovascular Exam: REGULAR RHYTHM, +S1, +S2, Murmur. absent: Gallop, JVD - GI/Abdominal Exam GI & Abdominal Exam: Soft. absent: Tenderness - Extremities Exam Extremities Exam: Full ROM, Normal Capillary Refill. absent: Calf Tenderness, Joint Swelling Assessment and Plan - Assessment and Plan (Free Text) Assessment: [place] large effusion s/p VAT w/ pleural Bx HTN, ESRD Cont meds/ await path supportive care
--- NOTE | 2018-06-17 09:19 | RAD ---
Date of service: 06/17/2018 HISTORY: L Chest Tube COMPARISON: 06/16/2018. FINDINGS: Right-sided dialysis catheter terminates in the right atrium. The left chest tube is stable in position terminating in the left apex. LUNGS: There is redemonstration of dense consolidation in the right lower lobe. The left lung is clear. PLEURA: Little interval change in large right pleural effusion. Residual small left pleural effusion. No pneumothorax. CARDIOVASCULAR: The heart is normal in size. No aortic atherosclerotic calcifications present. OSSEOUS STRUCTURES: Within normal limits for the patient's age. VISUALIZED UPPER ABDOMEN: Normal. OTHER FINDINGS: None. IMPRESSION: Little interval change in large right pleural effusion and residual small left pleural effusion. Stable position of left chest tube terminating in the left apex.
--- NOTE | 2018-06-17 11:00 | CP.PCM.PN ---
Subjective - Date & Time of Evaluation Date of Evaluation: 06/17/18 Time of Evaluation: 09:20 - Subjective Subjective: Patient seen and examined Denies cough, denies shortness of breath Febrile overnight Chest tube in place Status post hemodialysis yesterday Objective - Vital Signs/Intake and Output Vital Signs (last 24 hours): Temp Pulse Resp BP Pulse Ox 98.3 F 100 H 18 144/78 94 L 06/17/18 07:00 06/17/18 07:00 06/17/18 07:00 06/17/18 07:00 06/17/18 07:00 Intake and Output: 06/17/18 06/17/18 06:59 18:59 Intake Total 350 Output Total 32 Balance 318 - Medications Medications: Current Medications Acetaminophen (Tylenol 325mg Tab) 650 mg PO Q4 PRN PRN Reason: Fever >100.4 F Last Admin: 06/17/18 00:33 Dose: 650 mg Amlodipine Besylate (Norvasc) 5 mg PO DAILY [facility] Last Admin: 06/17/18 10:17 Dose: 5 mg Epoetin [place] (Procrit) 10,000 unit IV TTS [facility] Stop: 06/28/18 23:59 Last Admin: 06/16/18 09:15 Dose: 10,000 unit Heparin Sodium (Porcine) (Heparin) 3,700 units IVP TTS [facility] Stop: 06/28/18 23:00 Loperamide HCl (Imodium) 2 mg PO Q6 PRN PRN Reason: Diarrhea Oxycodone/Acetaminophen (Percocet 5/325 Mg Tab) 1 tab PO Q6H PRN PRN Reason: Pain, severe (8-10) Stop: 06/18/18 15:08 Last Admin: 06/16/18 12:43 Dose: 1 tab - Labs Labs: 06/17/18 07:02 06/16/18 06:17 PT 11.8 SECONDS (9.7-12.2) 06/15/18 07:17 INR 1.1 06/15/18 07:17 APTT 33 SECONDS (21-34) 06/15/18 07:17 - Head Exam Head Exam: ATRAUMATIC, NORMOCEPHALIC - ENT Exam ENT Exam: Mucous Membranes Moist - Neck Exam Neck Exam: Normal Inspection - Respiratory Exam Respiratory Exam: Decreased Breath Sounds - Cardiovascular Exam Cardiovascular Exam: REGULAR RHYTHM - GI/Abdominal Exam GI & Abdominal Exam: Soft Assessment and Plan (1) Pleural effusion Assessment & Plan: Chest x-ray showed enlarged right and small pleural effusion Status post pleural biopsy and drainage of fluid Culture so far negative Follow-up pleural biopsy report and third AFB Status: Acute (2) ESRD (end stage renal disease) on dialysis Status: Acute
--- NOTE | 2018-06-17 13:01 | CP.PCM.PN ---
Subjective - Date & Time of Evaluation Date of Evaluation: 06/17/18 Time of Evaluation: 12:58 - Subjective Subjective: feels better still febrile 1st afb negative POD#2 VATS, pleural bx stable dialysis 2/7 still anemic- on EPO; ferritin elevated Objective - Vital Signs/Intake and Output Vital Signs (last 24 hours): Temp Pulse Resp BP Pulse Ox 98.3 F 100 H 18 144/78 94 L 06/17/18 07:00 06/17/18 07:00 06/17/18 07:00 06/17/18 07:00 06/17/18 07:00 Intake and Output: 06/17/18 06/17/18 06:59 18:59 Intake Total 350 Output Total 32 Balance 318 - Medications Medications: Current Medications Acetaminophen (Tylenol 325mg Tab) 650 mg PO Q4 PRN PRN Reason: Fever >100.4 F Last Admin: 06/17/18 00:33 Dose: 650 mg Amlodipine Besylate (Norvasc) 5 mg PO DAILY [facility] Last Admin: 06/17/18 10:17 Dose: 5 mg Epoetin Milton (Procrit) 10,000 unit IV TTS [facility] Stop: 06/28/18 23:59 Last Admin: 06/16/18 09:15 Dose: 10,000 unit Heparin Sodium (Porcine) (Heparin) 3,700 units IVP TTS [facility] Stop: 06/28/18 23:00 Loperamide HCl (Imodium) 2 mg PO Q6 PRN PRN Reason: Diarrhea Oxycodone/Acetaminophen (Percocet 5/325 Mg Tab) 1 tab PO Q6H PRN PRN Reason: Pain, severe (8-10) Stop: 06/18/18 15:08 Last Admin: 06/16/18 12:43 Dose: 1 tab - Labs Labs: 06/17/18 07:02 06/16/18 06:17 PT 11.8 SECONDS (9.7-12.2) 06/15/18 07:17 INR 1.1 06/15/18 07:17 APTT 33 SECONDS (21-34) 06/15/18 07:17 - Constitutional Appears: No Acute Distress, Chronically Ill - Head Exam Head Exam: ATRAUMATIC, NORMAL INSPECTION - Eye Exam Eye Exam: EOMI, Normal appearance - Neck Exam Neck Exam: Normal Inspection. absent: Tenderness - Respiratory Exam Respiratory Exam: Clear to Ausculation Bilateral, NORMAL BREATHING PATTERN - Cardiovascular Exam Cardiovascular Exam: REGULAR RHYTHM, +S1 - GI/Abdominal Exam GI & Abdominal Exam: Soft. absent: Tenderness - Extremities Exam Extremities Exam: Normal Inspection. absent: Tenderness - Neurological Exam Neurological Exam: Awake, CN II-XII Intact - Skin Skin Exam: Dry, Warm Assessment and Plan (1) Pneumonia Status: Acute (2) Pleural effusion Status: Acute (3) ESRD (end stage renal disease) on dialysis Status: Acute (4) Hypertensive chronic kidney disease with stage 5 chronic kidney disease or end stage renal disease Status: Acute - Assessment and Plan (Free Text) Plan: Repeat dialysis in AM; TTS; UF goa; 1500ml await further culture results, afbs
[2018-06-17] MEDS: Oxycodone/Acetaminophen 5/325 mg Tab PO PRN (16:11)
--- NOTE | 2018-06-17 19:34 | CP.PCM.PN ---
Subjective - Date & Time of Evaluation Date of Evaluation: 06/17/18 Time of Evaluation: 09:00 - Subjective Subjective: fever on and off chest tube in place weak but NAD no resp distress at bedside Objective - Vital Signs/Intake and Output Vital Signs (last 24 hours): Temp Pulse Resp BP Pulse Ox 99.7 F H 109 H 20 135/78 97 06/17/18 15:00 06/17/18 15:00 06/17/18 15:00 06/17/18 15:00 06/17/18 15:00 Intake and Output: 06/17/18 06/18/18 18:59 06:59 Intake Total 300 Output Total 0 Balance 300 - Medications Medications: Current Medications Acetaminophen (Tylenol 325mg Tab) 650 mg PO Q4 PRN PRN Reason: Fever >100.4 F Last Admin: 06/17/18 00:33 Dose: 650 mg Amlodipine Besylate (Norvasc) 5 mg PO DAILY [facility] Last Admin: 06/17/18 10:17 Dose: 5 mg Calcium Acetate (Phoslo) 667 mg PO TIDCC [facility] Last Admin: 06/17/18 17:17 Dose: 667 mg Epoetin Milton (Procrit) 10,000 unit IV TTS [facility] Stop: 06/28/18 23:59 Last Admin: 06/16/18 09:15 Dose: 10,000 unit Heparin Sodium (Porcine) (Heparin) 3,700 units IVP TTS [facility] Stop: 06/28/18 23:00 Loperamide HCl (Imodium) 2 mg PO Q6 PRN PRN Reason: Diarrhea Oxycodone/Acetaminophen (Percocet 5/325 Mg Tab) 1 tab PO Q6H PRN PRN Reason: Pain, severe (8-10) Stop: 06/18/18 15:08 Last Admin: 06/17/18 16:11 Dose: 1 tab - Labs Labs: 06/17/18 07:02 06/16/18 06:17 PT 11.8 SECONDS (9.7-12.2) 06/15/18 07:17 INR 1.1 06/15/18 07:17 APTT 33 SECONDS (21-34) 06/15/18 07:17 - Constitutional Appears: Non-toxic, Cachectic, Chronically Ill - Head Exam Head Exam: ATRAUMATIC, NORMAL INSPECTION, NORMOCEPHALIC - Eye Exam Eye Exam: absent: Scleral icterus - ENT Exam ENT Exam: Mucous Membranes Dry - Neck Exam Neck Exam: absent: Lymphadenopathy - Respiratory Exam Respiratory Exam: Decreased Breath Sounds - Cardiovascular Exam Cardiovascular Exam: REGULAR RHYTHM - GI/Abdominal Exam GI & Abdominal Exam: Distended - Rectal Exam Rectal Exam: Deferred - Exam Exam: NORMAL INSPECTION - Extremities Exam Extremities Exam: absent: Pedal Edema - Back Exam Back Exam: absent: CVA tenderness (L), CVA tenderness (R) - Neurological Exam Neurological Exam: Alert, Awake, Oriented x3 Assessment and Plan (1) Pleural effusion Status: Acute (2) Pneumonia Status: Acute (3) ESRD (end stage renal disease) on dialysis Status: Acute (4) Fever Status: Acute (5) Hypertensive chronic kidney disease with stage 5 chronic kidney disease or end stage renal disease Status: Acute - Assessment and Plan (Free Text) Assessment: cont iv rx await pleural BX
--- NOTE | 2018-06-18 08:15 | CP.PCM.PN ---
Subjective - Date & Time of Evaluation Date of Evaluation: 06/18/18 Time of Evaluation: 08:00 - Subjective Subjective: p[t no complain; no fever, no CP exc chest tube side; no SOB, no edema (+) dry cough, good appetite, no n/v, no diarrhea Objective - Vital Signs/Intake and Output Vital Signs (last 24 hours): Temp Pulse Resp BP Pulse Ox 98.4 F 108 H 20 144/80 95 06/17/18 23:25 06/17/18 23:25 06/17/18 23:25 06/17/18 23:25 06/17/18 23:25 Intake and Output: 06/18/18 06/18/18 06:59 18:59 Intake Total 400 Output Total 3 Balance 397 - Medications Medications: Current Medications Acetaminophen (Tylenol 325mg Tab) 650 mg PO Q4 PRN PRN Reason: Fever >100.4 F Last Admin: 06/17/18 00:33 Dose: 650 mg Amlodipine Besylate (Norvasc) 5 mg PO DAILY [facility] Last Admin: 06/17/18 10:17 Dose: 5 mg Calcium Acetate (Phoslo) 667 mg PO TIDCC [facility] Last Admin: 06/18/18 08:09 Dose: 667 mg Epoetin Milton (Procrit) 10,000 unit IV TTS [facility] Stop: 06/28/18 23:59 Last Admin: 06/16/18 09:15 Dose: 10,000 unit Heparin Sodium (Porcine) (Heparin) 3,700 units IVP TTS [facility] Stop: 06/28/18 23:00 Loperamide HCl (Imodium) 2 mg PO Q6 PRN PRN Reason: Diarrhea Oxycodone/Acetaminophen (Percocet 5/325 Mg Tab) 1 tab PO Q6H PRN PRN Reason: Pain, severe (8-10) Stop: 06/18/18 15:08 Last Admin: 06/17/18 16:11 Dose: 1 tab - Labs Labs: 06/17/18 07:02 06/16/18 06:17 PT 11.8 SECONDS (9.7-12.2) 06/15/18 07:17 INR 1.1 06/15/18 07:17 APTT 33 SECONDS (21-34) 06/15/18 07:17 - Constitutional Appears: No Acute Distress - Eye Exam Eye Exam: Normal appearance - ENT Exam ENT Exam: Mucous Membranes Moist - Neck Exam Neck Exam: Full ROM. absent: Lymphadenopathy, Normal Inspection, Thyromegaly - Respiratory Exam Respiratory Exam: Decreased Breath Sounds. absent: Rales, Rhonchi, Wheezes - Cardiovascular Exam Cardiovascular Exam: REGULAR RHYTHM, +S1, +S2. absent: Gallop, JVD - GI/Abdominal Exam GI & Abdominal Exam: Soft. absent: Guarding, Tenderness - Extremities Exam Extremities Exam: Full ROM, Normal Capillary Refill. absent: Calf Tenderness, Joint Swelling, Pedal Edema Assessment and Plan - Assessment and Plan (Free Text) Assessment: [place] Pleural effusion x/p VAT w/ drainage HTN, ESRD Culture/ smear - all still negative Cont supportive care/ await Bx report
--- NOTE | 2018-06-18 10:58 | CP.PCM.PN ---
Subjective - Date & Time of Evaluation Date of Evaluation: 06/18/18 Time of Evaluation: 10:55 - Subjective Subjective: Notes reviewed Remains in isolation room Seen on dialysis bedside ID management noted Patient comfortable, cough as previous NO pain currently Appetite stable, tolerating diet 10 point ros negative other than stated above Objective - Vital Signs/Intake and Output Vital Signs (last 24 hours): Temp Pulse Resp BP Pulse Ox 98.8 F 105 H 18 136/87 95 06/18/18 09:50 06/18/18 09:50 06/18/18 09:50 06/18/18 10:42 06/18/18 09:50 Intake and Output: 06/18/18 06/18/18 06:59 18:59 Intake Total 400 Output Total 3 Balance 397 - Medications Medications: Current Medications Acetaminophen (Tylenol 325mg Tab) 650 mg PO Q4 PRN PRN Reason: Fever >100.4 F Last Admin: 06/17/18 00:33 Dose: 650 mg Amlodipine Besylate (Norvasc) 5 mg PO DAILY [facility] Last Admin: 06/17/18 10:17 Dose: 5 mg Calcium Acetate (Phoslo) 667 mg PO TIDCC [facility] Last Admin: 06/18/18 08:09 Dose: 667 mg Epoetin Milton (Procrit) 10,000 unit IV TTS [facility] Stop: 06/28/18 23:59 Last Admin: 06/16/18 09:15 Dose: 10,000 unit Heparin Sodium (Porcine) (Heparin) 3,700 units IVP TTS [facility] Stop: 06/28/18 23:00 Loperamide HCl (Imodium) 2 mg PO Q6 PRN PRN Reason: Diarrhea Oxycodone/Acetaminophen (Percocet 5/325 Mg Tab) 1 tab PO Q6H PRN PRN Reason: Pain, severe (8-10) Stop: 06/18/18 15:08 Last Admin: 06/17/18 16:11 Dose: 1 tab - Labs Labs: 06/17/18 07:02 06/16/18 06:17 PT 11.8 SECONDS (9.7-12.2) 06/15/18 07:17 INR 1.1 06/15/18 07:17 APTT 33 SECONDS (21-34) 06/15/18 07:17 - Constitutional Appears: Well, Non-toxic - Head Exam Head Exam: ATRAUMATIC, NORMAL INSPECTION - Eye Exam Eye Exam: EOMI, Normal appearance - ENT Exam ENT Exam: Mucous Membranes Moist, Normal Oropharynx - Neck Exam Neck Exam: absent: Lymphadenopathy, Thyromegaly - Respiratory Exam Respiratory Exam: Rhonchi. absent: Rales - Cardiovascular Exam Cardiovascular Exam: +S1, +S2. absent: Rubs - GI/Abdominal Exam GI & Abdominal Exam: Soft, Normal Bowel Sounds - Extremities Exam Extremities Exam: absent: Joint Swelling, Pedal Edema - Neurological Exam Neurological Exam: Alert, Awake, Oriented x3 - Skin Skin Exam: Dry, Intact Assessment and Plan (1) Pneumonia Status: Acute (2) ESRD (end stage renal disease) on dialysis Status: Acute (3) Anemia Status: Chronic (4) Diabetes Status: Chronic (5) HTN (hypertension) Status: Chronic - Assessment and Plan (Free Text) Assessment: Tolerating dialysis well, uf goal 2000ml today Labs with dialysis CECY on dialysis Abx as ordered Await evaluation for TB Continue current care
--- NOTE | 2018-06-18 12:03 | CP.PCM.PN ---
Subjective - Date & Time of Evaluation Date of Evaluation: 06/18/18 Time of Evaluation: 11:30 - Subjective Subjective: Patient seen and examined Seen during hemodialysis Denies any complaints No cough Pleural fluid negative for malignancy Consider to discontinue isolation Follow-up pleural biopsy pathology report Objective - Vital Signs/Intake and Output Vital Signs (last 24 hours): Temp Pulse Resp BP Pulse Ox 98.8 F 105 H 18 124/78 95 06/18/18 09:50 06/18/18 09:50 06/18/18 09:50 06/18/18 11:56 06/18/18 09:50 Intake and Output: 06/18/18 06/18/18 06:59 18:59 Intake Total 400 Output Total 3 Balance 397 - Medications Medications: Current Medications Acetaminophen (Tylenol 325mg Tab) 650 mg PO Q4 PRN PRN Reason: Fever >100.4 F Last Admin: 06/17/18 00:33 Dose: 650 mg Amlodipine Besylate (Norvasc) 5 mg PO DAILY [facility] Last Admin: 06/17/18 10:17 Dose: 5 mg Calcium Acetate (Phoslo) 667 mg PO TIDCC [facility] Last Admin: 06/18/18 08:09 Dose: 667 mg Epoetin [place] (Procrit) 10,000 unit IV TTS [facility] Stop: 06/28/18 23:59 Last Admin: 06/16/18 09:15 Dose: 10,000 unit Heparin Sodium (Porcine) (Heparin) 3,700 units IVP TTS [facility] Stop: 06/28/18 23:00 Loperamide HCl (Imodium) 2 mg PO Q6 PRN PRN Reason: Diarrhea Oxycodone/Acetaminophen (Percocet 5/325 Mg Tab) 1 tab PO Q6H PRN PRN Reason: Pain, severe (8-10) Stop: 06/18/18 15:08 Last Admin: 06/17/18 16:11 Dose: 1 tab - Labs Labs: 06/17/18 07:02 06/16/18 06:17 PT 11.8 SECONDS (9.7-12.2) 06/15/18 07:17 INR 1.1 06/15/18 07:17 APTT 33 SECONDS (21-34) 06/15/18 07:17 Assessment and Plan (1) Pleural effusion Status: Acute (2) ESRD (end stage renal disease) on dialysis Status: Acute
[2018-06-18] MEDS: Epoetin Alfa 10,000 unit/ml Dialysis IV SCH (12:05)
[2018-06-18 16:15] VITALS: RESP 20
[2018-06-18] MEDS ORDERED: Oxycodone/Acetaminophen 5/325 mg Tab PO PRN (20:46)
--- NOTE | 2018-06-18 20:52 | CP.PCM.PN ---
Subjective - Date & Time of Evaluation Date of Evaluation: 06/18/18 Time of Evaluation: 17:30 - Subjective Subjective: Ct surgery progress note for Dr. Lemons Patient seen and examined at bedside. tolerating room air well no complaints denies SOB and chest pain. continues to have mild nonproductive cough. CT with approximately 10 cc out in last [address] removed at bedside today, patient tolerated well, occlusive dressing in place. Objective - Vital Signs/Intake and Output Vital Signs (last 24 hours): Temp Pulse Resp BP Pulse Ox 97.7 F 121 H 20 119/71 95 06/18/18 16:14 06/18/18 16:14 06/18/18 16:14 06/18/18 16:14 06/18/18 16:14 - Medications Medications: Current Medications Acetaminophen (Tylenol 325mg Tab) 650 mg PO Q4 PRN PRN Reason: Fever >100.4 F Last Admin: 06/17/18 00:33 Dose: 650 mg Amlodipine Besylate (Norvasc) 5 mg PO DAILY [facility] Last Admin: 06/18/18 10:00 Dose: Not Given Calcium Acetate (Phoslo) 667 mg PO TIDCC [facility] Last Admin: 06/18/18 17:50 Dose: 667 mg Epoetin [place] (Procrit) 10,000 unit IV TTS [facility] Stop: 06/28/18 23:59 Last Admin: 06/18/18 12:05 Dose: 10,000 unit Heparin Sodium (Porcine) (Heparin) 3,700 units IVP TTS [facility] Stop: 06/28/18 23:00 Loperamide HCl (Imodium) 2 mg PO Q6 PRN PRN Reason: Diarrhea Oxycodone/Acetaminophen (Percocet 5/325 Mg Tab) 1 tab PO Q6 PRN PRN Reason: Pain, moderate (4-7) Stop: 06/22/18 00:01 - Labs Labs: 06/17/18 07:02 06/16/18 06:17 PT 11.8 SECONDS (9.7-12.2) 06/15/18 07:17 INR 1.1 06/15/18 07:17 APTT 33 SECONDS (21-34) 06/15/18 07:17 - Constitutional Appears: Well, Non-toxic, No Acute Distress - Head Exam Head Exam: ATRAUMATIC, NORMOCEPHALIC - Eye Exam Eye Exam: EOMI - ENT Exam ENT Exam: Mucous Membranes Moist - Respiratory Exam Respiratory Exam: NORMAL BREATHING PATTERN - Cardiovascular Exam Cardiovascular Exam: REGULAR RHYTHM Additional comments: Chest tube removed at bedside - GI/Abdominal Exam GI & Abdominal Exam: Soft. absent: Tenderness - Extremities Exam Extremities Exam: absent: Calf Tenderness, Pedal Edema - Neurological Exam Neurological Exam: Alert, Awake, Oriented x3 - Psychiatric Exam Psychiatric exam: Normal Affect, Normal Mood - Skin Skin Exam: Dry, Normal Color, Warm Additional comments: chest tube site non erythematous without induration, occlusive dressing applied after removal Assessment and Plan - Assessment and Plan (Free Text) Assessment: 47F left VATs and pleural biopsy POD#3 Plan: -will f/u post CT removal CXR - continue to f/u cultures - f/u pathology results of biopsy - nurse and patient instructed not to remove or tamper with dressing, dressing may be reinforced as needed. - discussed with Dr. Xavi Beal, PGY 1
--- NOTE | 2018-06-19 08:14 | CP.PCM.PN ---
Subjective - Date & Time of Evaluation Date of Evaluation: 06/19/18 Time of Evaluation: 08:10 - Subjective Subjective: SURGERY NOTE FOR DR. MOA 47F seen and examined at bedside. Patient denies any chest pain, denies shortness of breath. Objective - Vital Signs/Intake and Output Vital Signs (last 24 hours): Temp Pulse Resp BP Pulse Ox 98.5 F 113 H 20 141/85 99 06/19/18 04:23 06/19/18 04:23 06/19/18 04:23 06/19/18 04:23 06/19/18 04:23 Intake and Output: 06/19/18 06/19/18 06:59 18:59 Intake Total 400 Balance 400 - Medications Medications: Current Medications Acetaminophen (Tylenol 325mg Tab) 650 mg PO Q4 PRN PRN Reason: Fever >100.4 F Last Admin: 06/17/18 00:33 Dose: 650 mg Amlodipine Besylate (Norvasc) 5 mg PO DAILY [facility] Last Admin: 06/18/18 10:00 Dose: Not Given Calcium Acetate (Phoslo) 667 mg PO TIDCC [facility] Last Admin: 06/18/18 17:50 Dose: 667 mg Epoetin [place] (Procrit) 10,000 unit IV TTS [facility] Stop: 06/28/18 23:59 Last Admin: 06/18/18 12:05 Dose: 10,000 unit Heparin Sodium (Porcine) (Heparin) 3,700 units IVP TTS [facility] Stop: 06/28/18 23:00 Loperamide HCl (Imodium) 2 mg PO Q6 PRN PRN Reason: Diarrhea Oxycodone/Acetaminophen (Percocet 5/325 Mg Tab) 1 tab PO Q6 PRN PRN Reason: Pain, moderate (4-7) Stop: 06/22/18 00:01 - Labs Labs: 06/17/18 07:02 06/16/18 06:17 PT 11.8 SECONDS (9.7-12.2) 06/15/18 07:17 INR 1.1 06/15/18 07:17 APTT 33 SECONDS (21-34) 06/15/18 07:17 - Constitutional Appears: Non-toxic, No Acute Distress - Respiratory Exam Respiratory Exam: NORMAL BREATHING PATTERN - Cardiovascular Exam Cardiovascular Exam: REGULAR RHYTHM, +S1, +S2 Additional comments: left surgical dressing clean dry intact - GI/Abdominal Exam GI & Abdominal Exam: Soft. absent: Distended, Firm, Guarding, Rigid, Tenderness , Rebound - Extremities Exam Extremities Exam: absent: Pedal Edema, Tenderness - Neurological Exam Neurological Exam: Alert, Awake Assessment and Plan - Assessment and Plan (Free Text) Assessment: 47F s/p left VATs for pleural biopsy, chest tube which was removed 06/18/28 Plan: - monitor respiratory status - await OR cultures and pathology - Further recs discuss with Dr. Dayanara Toney, PGY3
--- NOTE | 2018-06-19 10:05 | CP.PCM.PN ---
Subjective - Date & Time of Evaluation Date of Evaluation: 06/19/18 Time of Evaluation: 10:05 - Subjective Subjective: Pulmonary follow up, Covering Dr Allen The Patient was seen and examined at the bedside, Medical records reviewed, and management issues were discussed and formulated with the house staff. Events reviewed Patient is comfortable in no apparent distress No chest pain, shortness of shortness of breath or cough status post thoracentesis with pleural fluid negative for malignancy Objective - Vital Signs/Intake and Output Vital Signs (last 24 hours): Temp Pulse Resp BP Pulse Ox 98.0 F 127 H 20 130/85 99 06/19/18 08:00 06/19/18 08:00 06/19/18 08:00 06/19/18 08:00 06/19/18 08:00 Intake and Output: 06/19/18 06/19/18 06:59 18:59 Intake Total 400 Balance 400 - Medications Medications: Current Medications Acetaminophen (Tylenol 325mg Tab) 650 mg PO Q4 PRN PRN Reason: Fever >100.4 F Last Admin: 06/17/18 00:33 Dose: 650 mg Amlodipine Besylate (Norvasc) 5 mg PO DAILY [facility] Last Admin: 06/18/18 10:00 Dose: Not Given Calcium Acetate (Phoslo) 667 mg PO TIDCC [facility] Last Admin: 06/18/18 17:50 Dose: 667 mg Epoetin [place] (Procrit) 10,000 unit IV TTS [facility] Stop: 06/28/18 23:59 Last Admin: 06/18/18 12:05 Dose: 10,000 unit Heparin Sodium (Porcine) (Heparin) 3,700 units IVP TTS [facility] Stop: 06/28/18 23:00 Loperamide HCl (Imodium) 2 mg PO Q6 PRN PRN Reason: Diarrhea Oxycodone/Acetaminophen (Percocet 5/325 Mg Tab) 1 tab PO Q6 PRN PRN Reason: Pain, moderate (4-7) Stop: 06/22/18 00:01 - Labs Labs: 06/17/18 07:02 06/16/18 06:17 PT 11.8 SECONDS (9.7-12.2) 06/15/18 07:17 INR 1.1 06/15/18 07:17 APTT 33 SECONDS (21-34) 06/15/18 07:17
--- NOTE | 2018-06-19 10:42 | RAD ---
Date of service: 06/18/2018 HISTORY: s/p chest tube removal COMPARISON: Portable chest 06/17/2018 8:41 a.m.. FINDINGS: LUNGS: Right central venous dialysis catheter unchanged in position. Prior left chest tube now removed. Pleura prominent right pleural effusion unchanged. Underlying airspace disease not excluded. Borderline left pleural effusion. Linear atelectasis left base again evident. No pneumothorax bilaterally. CARDIOVASCULAR: No aortic atherosclerotic calcification present. Prominent cardiac silhouette reiterated. No pulmonary vascular congestion. OSSEOUS STRUCTURES: No significant abnormalities. VISUALIZED UPPER ABDOMEN: Normal. OTHER FINDINGS: None. IMPRESSION: Left chest tube removed. Linear atelectasis again noted left base with trace of pleural effusion question. Prominent right pleural effusion unchanged. Underlying airspace disease not excluded. No pulmonary vascular congestion.
--- NOTE | 2018-06-19 15:35 | CP.PCM.PN ---
Subjective - Date & Time of Evaluation Date of Evaluation: 06/19/18 Time of Evaluation: 08:00 - Subjective Subjective: pleural bx negative AFB neg x 3 will need INH rx Objective - Vital Signs/Intake and Output Vital Signs (last 24 hours): Temp Pulse Resp BP Pulse Ox 98.0 F 127 H 20 130/85 99 06/19/18 08:00 06/19/18 08:00 06/19/18 08:00 06/19/18 08:00 06/19/18 08:00 Intake and Output: 06/19/18 06/19/18 06:59 18:59 Intake Total 400 360 Balance 400 360 - Medications Medications: Current Medications Acetaminophen (Tylenol 325mg Tab) 650 mg PO Q4 PRN PRN Reason: Fever >100.4 F Last Admin: 06/17/18 00:33 Dose: 650 mg Amlodipine Besylate (Norvasc) 5 mg PO DAILY [facility] Last Admin: 06/19/18 11:06 Dose: 5 mg Calcium Acetate (Phoslo) 667 mg PO TIDCC [facility] Last Admin: 06/19/18 13:00 Dose: 667 mg Epoetin [place] (Procrit) 10,000 unit IV TTS [facility] Stop: 06/28/18 23:59 Last Admin: 06/18/18 12:05 Dose: 10,000 unit Heparin Sodium (Porcine) (Heparin) 3,700 units IVP TTS [facility] Stop: 06/28/18 23:00 Loperamide HCl (Imodium) 2 mg PO Q6 PRN PRN Reason: Diarrhea Oxycodone/Acetaminophen (Percocet 5/325 Mg Tab) 1 tab PO Q6 PRN PRN Reason: Pain, moderate (4-7) Stop: 06/22/18 00:01 - Labs Labs: 06/17/18 07:02 06/16/18 06:17 PT 11.8 SECONDS (9.7-12.2) 06/15/18 07:17 INR 1.1 06/15/18 07:17 APTT 33 SECONDS (21-34) 06/15/18 07:17 - Constitutional Appears: Non-toxic, Chronically Ill - Head Exam Head Exam: NORMOCEPHALIC - Eye Exam Eye Exam: absent: Scleral icterus - ENT Exam ENT Exam: Mucous Membranes Dry - Neck Exam Neck Exam: absent: Lymphadenopathy - Respiratory Exam Respiratory Exam: Decreased Breath Sounds - Cardiovascular Exam Cardiovascular Exam: REGULAR RHYTHM - GI/Abdominal Exam GI & Abdominal Exam: Distended - Rectal Exam Rectal Exam: Deferred - Exam Exam: NORMAL INSPECTION - Extremities Exam Extremities Exam: absent: Pedal Edema - Back Exam Back Exam: absent: CVA tenderness (L), CVA tenderness (R) - Neurological Exam Neurological Exam: Alert, Awake, Oriented x3 - Psychiatric Exam Psychiatric exam: Depressed - Skin Skin Exam: Dry, Intact Assessment and Plan (1) Pleural effusion Status: Acute (2) Pneumonia Status: Acute (3) ESRD (end stage renal disease) on dialysis Status: Acute (4) Fever Status: Acute (5) Hypertensive chronic kidney disease with stage 5 chronic kidney disease or end stage renal disease Status: Acute
--- NOTE | 2018-06-19 15:38 | CP.PCM.PCO ---
Physician Communication Note - Physician Communication Note Physician Communication Note: consider [facility] Rx until pleural fluid AFB smears/ cultures available
--- NOTE | 2018-06-19 16:11 | CP.PCM.PN ---
Subjective - Date & Time of Evaluation Date of Evaluation: 06/19/18 Time of Evaluation: 16:09 - Subjective Subjective: S: Feels richard. No fever. Eager to go home. Cultures non-conclusive . Objective - Vital Signs/Intake and Output Vital Signs (last 24 hours): Temp Pulse Resp BP Pulse Ox 98.0 F 127 H 20 130/85 99 06/19/18 08:00 06/19/18 08:00 06/19/18 08:00 06/19/18 08:00 06/19/18 08:00 Intake and Output: 06/19/18 06/19/18 06:59 18:59 Intake Total 400 360 Balance 400 360 - Medications Medications: Current Medications Acetaminophen (Tylenol 325mg Tab) 650 mg PO Q4 PRN PRN Reason: Fever >100.4 F Last Admin: 06/17/18 00:33 Dose: 650 mg Amlodipine Besylate (Norvasc) 5 mg PO [facility]ILY [facility] Last Admin: 06/19/18 11:06 Dose: 5 mg Calcium Acetate (Phoslo) 667 mg PO [facility] Last Admin: 06/19/18 13:00 Dose: 667 mg Epoetin [place] (Procrit) 10,000 unit IV TTS [facility] Stop: 06/28/18 23:59 Last Admin: 06/18/18 12:05 Dose: 10,000 unit Heparin Sodium (Porcine) (Heparin) 3,700 units IVP [facility]TS [facility] Stop: 06/28/18 23:00 Loperamide HCl (Imodium) 2 mg PO Q6 PRN PRN Reason: Diarrhea Oxycodone/Acetaminophen (Percocet 5/325 Mg Tab) 1 tab PO Q6 PRN PRN Reason: Pain, moderate (4-7) Stop: 06/22/18 00:01 - Labs Labs: 06/17/18 07:02 06/16/18 06:17 PT 11.8 SECONDS (9.7-12.2) 06/15/18 07:17 INR 1.1 06/15/18 07:17 APTT 33 SECONDS (21-34) 06/15/18 07:17 - Constitutional Appears: Chronically Ill - Head Exam Head Exam: NORMAL INSPECTION - Eye Exam Eye Exam: Normal appearance - ENT Exam ENT Exam: Normal Exam - Neck Exam Neck Exam: Normal Inspection - Respiratory Exam Respiratory Exam: NORMAL BREATHING PATTERN - Cardiovascular Exam Cardiovascular Exam: REGULAR RHYTHM - GI/Abdominal Exam GI & Abdominal Exam: Soft - Rectal Exam Rectal Exam: Deferred - Extremities Exam Extremities Exam: absent: Pedal Edema - Neurological Exam Neurological Exam: Alert Assessment and Plan (1) Pleural effusion Status: Acute (2) ESRD (end stage renal disease) on dialysis Status: Acute - Assessment and Plan (Free Text) Assessment: A/P: Continue medications.
[2018-06-20 01:00] VITALS: PULSE 116
[2018-06-20 08:15] VITALS: BP 129/84; TEMP 98; O2SAT 98
--- NOTE | 2018-06-20 08:56 | CP.PCM.PN ---
Subjective - Date & Time of Evaluation Date of Evaluation: 06/20/18 Time of Evaluation: 08:30 - Subjective Subjective: Pt no CP, no SOB, no cough, no n/v, no diarrhea; (+) [place] dec dry cough Objective - Vital Signs/Intake and Output Vital Signs (last 24 hours): Temp Pulse Resp BP Pulse Ox 98.0 F 116 H 20 129/84 98 06/20/18 07:00 06/19/18 23:20 06/20/18 07:00 06/20/18 07:00 06/20/18 07:00 Intake and Output: 06/20/18 06/20/18 06:59 18:59 Intake Total 500 Balance 500 - Medications Medications: Current Medications Acetaminophen (Tylenol 325mg Tab) 650 mg PO Q4 PRN PRN Reason: Fever >100.4 F Last Admin: 06/17/18 00:33 Dose: 650 mg Amlodipine Besylate (Norvasc) 5 mg PO DAILY [facility] Last Admin: 06/19/18 11:06 Dose: 5 mg Calcium Acetate (Phoslo) 667 mg PO TIDCC [facility] Last Admin: 06/20/18 08:36 Dose: 667 mg Epoetin [place] (Procrit) 10,000 unit IV TTS [facility] Stop: 06/28/18 23:59 Last Admin: 06/18/18 12:05 Dose: 10,000 unit Heparin Sodium (Porcine) (Heparin) 3,700 units IVP TTS [facility] Stop: 06/28/18 23:00 Loperamide HCl (Imodium) 2 mg PO Q6 PRN PRN Reason: Diarrhea Oxycodone/Acetaminophen (Percocet 5/325 Mg Tab) 1 tab PO Q6 PRN PRN Reason: Pain, moderate (4-7) Stop: 06/22/18 00:01 - Labs Labs: 06/17/18 07:02 06/16/18 06:17 PT 11.8 SECONDS (9.7-12.2) 06/15/18 07:17 INR 1.1 06/15/18 07:17 APTT 33 SECONDS (21-34) 06/15/18 07:17 - Constitutional Appears: No Acute Distress - Eye Exam Eye Exam: Normal appearance - ENT Exam ENT Exam: Mucous Membranes Moist - Neck Exam Neck Exam: Full ROM. absent: Lymphadenopathy, Normal Inspection - Respiratory Exam Respiratory Exam: Decreased Breath Sounds. absent: Rales, Rhonchi, Wheezes - Cardiovascular Exam Cardiovascular Exam: REGULAR RHYTHM, +S1, +S2, Murmur. absent: Gallop, JVD - GI/Abdominal Exam GI & Abdominal Exam: Soft. absent: Guarding, Tenderness - Extremities Exam Extremities Exam: Full ROM, Normal Capillary Refill. absent: Calf Tenderness, Joint Swelling, Pedal Edema Assessment and Plan - Assessment and Plan (Free Text) Plan: [place]; large pleural effusion; Latent TB HTN, ESRD Will discharge; Cont home meds stress close f/up c/o Path still pending Discharge on antibx?
--- NOTE | 2018-06-20 11:43 | CP.PCM.PN ---
Subjective - Date & Time of Evaluation Date of Evaluation: 06/20/18 Time of Evaluation: 09:00 - Subjective Subjective: afebrile TB Quant + smears / cultures so far neg started on RIPE pending cultures follow up Dr Carrera Objective - Vital Signs/Intake and Output Vital Signs (last 24 hours): Temp Pulse Resp BP Pulse Ox 98.0 F 116 H 20 129/84 98 06/20/18 07:00 06/19/18 23:20 06/20/18 07:00 06/20/18 07:00 06/20/18 07:00 Intake and Output: 06/20/18 06/20/18 06:59 18:59 Intake Total 500 Balance 500 - Medications Medications: Current Medications Acetaminophen (Tylenol 325mg Tab) 650 mg PO Q4 PRN PRN Reason: Fever >100.4 F Last Admin: 06/17/18 00:33 Dose: 650 mg Amlodipine Besylate (Norvasc) 5 mg PO DAILY [facility] Last Admin: 06/19/18 11:06 Dose: 5 mg Calcium Acetate (Phoslo) 667 mg PO TIDCC [facility] Last Admin: 06/20/18 08:36 Dose: 667 mg Epoetin Milton (Procrit) 10,000 unit IV TTS [facility] Stop: 06/28/18 23:59 Last Admin: 06/18/18 12:05 Dose: 10,000 unit Heparin Sodium (Porcine) (Heparin) 3,700 units IVP TTS [facility] Stop: 06/28/18 23:00 Loperamide HCl (Imodium) 2 mg PO Q6 PRN PRN Reason: Diarrhea Oxycodone/Acetaminophen (Percocet 5/325 Mg Tab) 1 tab PO Q6 PRN PRN Reason: Pain, moderate (4-7) Stop: 06/22/18 00:01 - Labs Labs: 06/17/18 07:02 06/16/18 06:17 PT 11.8 SECONDS (9.7-12.2) 06/15/18 07:17 INR 1.1 06/15/18 07:17 APTT 33 SECONDS (21-34) 06/15/18 07:17 - Constitutional Appears: Non-toxic, Chronically Ill - Head Exam Head Exam: NORMOCEPHALIC - Eye Exam Eye Exam: absent: Scleral icterus - ENT Exam ENT Exam: Mucous Membranes Dry - Neck Exam Neck Exam: absent: Lymphadenopathy - Respiratory Exam Respiratory Exam: Decreased Breath Sounds - Cardiovascular Exam Cardiovascular Exam: REGULAR RHYTHM - GI/Abdominal Exam GI & Abdominal Exam: Distended, Soft - Rectal Exam Rectal Exam: Deferred - Exam Exam: NORMAL INSPECTION - Extremities Exam Extremities Exam: absent: Pedal Edema - Back Exam Back Exam: absent: CVA tenderness (L), CVA tenderness (R) - Neurological Exam Neurological Exam: Alert, Awake, CN II-XII Intact - Psychiatric Exam Psychiatric exam: Depressed - Skin Skin Exam: Dry Assessment and Plan (1) Pleural effusion Status: Acute (2) Pneumonia Status: Acute (3) ESRD (end stage renal disease) on dialysis Status: Acute (4) Fever Status: Acute (5) Hypertensive chronic kidney disease with stage 5 chronic kidney disease or end stage renal disease Status: Acute - Assessment and Plan (Free Text) Assessment: await final TB Cultures ok to d/c isolation follow up with Dr Carrera
--- NOTE | 2018-06-20 13:54 | CP.PCM.PN ---
Subjective - Date & Time of Evaluation Date of Evaluation: 06/20/18 Time of Evaluation: 06:45 - Subjective Subjective: Thoracic Surgery Dr. Lemons Pt seen and examined @bedside. No acute events overnight. no complaints this AM. denies F/C, CP, SOB, N/V. tolerating diet. Objective - Vital Signs/Intake and Output Vital Signs (last 24 hours): Temp Pulse Resp BP Pulse Ox 98.0 F 116 H 20 129/84 98 06/20/18 07:00 06/19/18 23:20 06/20/18 07:00 06/20/18 07:00 06/20/18 07:00 Intake and Output: 06/20/18 06/20/18 06:59 18:59 Intake Total 500 300 Balance 500 300 - Labs Labs: 06/17/18 07:02 06/16/18 06:17 PT 11.8 SECONDS (9.7-12.2) 06/15/18 07:17 INR 1.1 06/15/18 07:17 APTT 33 SECONDS (21-34) 06/15/18 07:17 - Constitutional Appears: Non-toxic, No Acute Distress - Head Exam Head Exam: NORMAL INSPECTION - Eye Exam Eye Exam: Normal appearance - ENT Exam ENT Exam: Mucous Membranes Moist - Neck Exam Neck Exam: Normal Inspection - Respiratory Exam Respiratory Exam: NORMAL BREATHING PATTERN. absent: Accessory Muscle Use, Respiratory Distress Additional comments: dressing c/d/i - Cardiovascular Exam Cardiovascular Exam: REGULAR RHYTHM. absent: Bradycardia, Tachycardia - GI/Abdominal Exam GI & Abdominal Exam: Soft. absent: Distended, Tenderness - Extremities Exam Extremities Exam: Normal Inspection - Neurological Exam Neurological Exam: Alert, Awake, Oriented x3 - Psychiatric Exam Psychiatric exam: Normal Affect, Normal Mood - Skin Skin Exam: Dry, Intact, Normal Color, Warm Assessment and Plan - Assessment and Plan (Free Text) Assessment: 47F s/p left VATs for pleural biopsy, chest tube which was removed 06/18/28 Plan: - monitor respiratory status - AFB and GMS negative; mycoplasm species pending - Cytology negative for malignancy - encourage OOB to chair/Amb/IS use Further recs per Dr. Vesta Hylton DO PGY3
--- NOTE | 2018-06-28 06:07 | OP ---
PROCEDURE DATE: 06/15/2018 LOCATION: [facility]. PREOPERATIVE DIAGNOSIS: Recurrent symptomatic complicated left pleural effusion, questionable etiology. POSTOPERATIVE DIAGNOSIS: Recurrent symptomatic complicated left pleural effusion, questionable etiology. PROCEDURES: 1. Flexible bronchoscopy. 2. Regional intercostal nerve block (multiple). 3. Left video-assisted thoracoscopic surgery. 4. Pleural biopsy. 5. Mediastinal biopsy. 6. Intrapleural pneumolysis. 7. Removal of fibrinous debris. SURGEON: Von Lemons MD FOOD PROCESSING CHEMIST: As per record. ANESTHESIA: Anesthesia. ANESTHESIOLOGIST: As per record. INDICATIONS: As above. COMPLICATIONS: None. SPECIMENS: Pleural liquid for culture and cytology, pleural and mediastinal biopsies for cultures and histopathology. ESTIMATED BLOOD LOSS: Minimal. PROCEDURE IN DETAIL: The patient was identified by the operating room staff and placed supine on the operating room table. Bilateral Venodynes were placed. Adequate IV access and monitoring lines were inserted by the anesthesiologist utilizing sterile technique. General endotracheal anesthesia was induced uneventfully. A full bronchoscopic examination was performed. There were no endobronchial lesions noted. There were minimal secretions evacuated. The position of the double-lumen endotracheal tube was confirmed to be in place with the use of the bronchoscope. The patient was then turned to the right lateral decubitus position and maintained there with a beanbag. All pressure points were appropriately padded. The position of the double-lumen endotracheal tube was once again confirmed to be in proper place with the use of a bronchoscope. With maximal hip flexion, the patient was securely positioned, prepped and draped in the usual sterile fashion. Regional intercostal nerve blocks were performed to the entire left lateral chest wall by infiltrating 0.25% Marcaine in all the intercostal spaces just medial to the vertebral takeoffs. On the single-lung ventilation, a left thoracoscopy was performed via two port sites. Upon entering the hemithorax, a significant amount of thick viscous fluid was evacuated. Specimens were sent as described above. There was a concern for potential occult mycobacterial disease. There was no obvious pleural studding; however, there was grossly inflamed pleura throughout. Random biopsies were taken and sent as a specimen described above. In a similar fashion, pathologic areas in the anterior and posterior mediastinum were also excised and were also biopsied in a similar fashion. There was no gross adenopathy noted. The parenchyma appeared grossly abnormal; however, there was no evidence of any obvious mass and/or nodule that was easily accessible. There was moderate amount of diffuse fibrinous adhesions. These were taken down with gentle blunt manipulation and cautery as deemed necessary. Once pneumolysis was completed, additional fibrinous debris was removed with instrumentation. Both of these maneuvers allowed for the lung to fully expand. There was no evidence of any formal rind on the parenchymal pleura. Two-lung ventilation resumed and good pleural apposition was noted. In fear of potential infection, a pleurodesis was avoided at this time. The hemithorax was drained with a single 28-Bel[place]ian chest tube placed through a separate inferior stab wound and guided in a posterior apical fashion. The port sites were closed in layers with absorbable suture. Additional regional intercostal nerve block was performed by infiltrating the long-acting Marcaine with Exparel. The chest tube was anchored with a heavy monofilament suture and then attached to sterile Pleur-evac tubing and placed on suction. Sterile dressings were applied. The patient was laid supine and allowed to awaken and was extubated uneventfully. She was sent back to the postanesthesia care unit with stable hemodynamics and stable respiratory status. All counts were correct x2. Von Lemons M.D.
== END 2018-06-20 12:17 | disposition home or self-care (01) | DRG 166 ==
LOC: C.ER 11:18 → C.9E 13:41 → C.6T 16:49
PROVIDERS: ADMIT Internal Medicine; ATTEND Internal Medicine
PROC: 5A1D70Z Performance of Urinary Filtration, Intermittent, Less than 6 Hours Per Day (ICD-10-PCS; principal; 2018-06-09)
PROC: 0BBP4ZX Excision of Left Pleura, Percutaneous Endoscopic Approach, Diagnostic (ICD-10-PCS; 2018-06-15)
PROC: 0BNP4ZZ Release Left Pleura, Percutaneous Endoscopic Approach (ICD-10-PCS; 2018-06-15)
PROC: 0W9B40Z Drainage of Left Pleural Cavity with Drainage Device, Percutaneous Endoscopic Approach (ICD-10-PCS; 2018-06-15)
PROC: 0WBC4ZX Excision of Mediastinum, Percutaneous Endoscopic Approach, Diagnostic (ICD-10-PCS; 2018-06-15)
PROC: 3E0T3BZ Introduction of Anesthetic Agent into Peripheral Nerves and Plexi, Percutaneous Approach (ICD-10-PCS; 2018-06-15)
DX: J90 Pleural effusion, not elsewhere classified (principal); J18.9 Pneumonia, unspecified organism; N18.6 End stage renal disease; I12.0 Hypertensive chronic kidney disease with stage 5 chronic kidney disease or end stage renal disease; E11.22 Type 2 diabetes mellitus with diabetic chronic kidney disease; J40 Bronchitis, not specified as acute or chronic; D63.1 Anemia in chronic kidney disease; Z99.2 Dependence on renal dialysis

== ENCOUNTER 2018-06-25 11:10 | Inpatient (IN) | payer OTHER ==
[2018-06-25 11:24] VITALS: BMI 23.0
[2018-06-25 12:18] LABS: BASO % 0.9 % (0.0-2.0); EOS # 0.1 K/uL (0.0-0.7); EOS % 1.6 % (0.0-4.0); HEMOGLOBIN 8.6 g/dL (11.0-16.0); LYMPH # 0.7 K/uL (1.0-4.3); MEAN CORPUSCULAR HEMOGLOBIN 31.3 pg (27.0-31.0); MEAN CORPUSCULAR HGB CONC 31.6 g/dL (33.0-37.0); MEAN PLATELET VOLUME 8.5 fL (7.2-11.7); MONO # 0.5 K/uL (0.0-0.8); MONO % 11.1 % (0.0-10.0); NEUT # 3.5 K/uL (1.8-7.0); NEUT % 72.4 % (50.0-75.0); RBC 2.73 Mil/uL (3.80-5.20); RED CELL DISTRIBUTION WIDTH 16.4 % (11.5-14.5); WHITE BLOOD COUNT 4.8 K/uL (4.8-10.8)
[2018-06-25 12:29] LABS: INR 1.1; PROTHROMBIN TIME 11.8 SECONDS (9.7-12.2)
--- NOTE | 2018-06-25 12:51 | C.PDOC ---
History Of Present Illness 47 y/o female pt with hx of ESRD, dialysis wednesday, and wednesday presents to the ER c/o worsening SOB. Pt was recently admitted for pleural effusion and was discharged from a 3-day hospital stay x6 days ago. Pt now has worsening SOB and denies chest pain. Time Seen by Provider: 06/25/18 12:00 Chief Complaint (Nursing): Shortness Of Breath Past Medical History Vital Signs: Last Vital Signs Temp 98.1 F 06/25/18 11:26 Pulse 116 H 06/25/18 11:26 Resp 48 H 06/25/18 11:26 BP 157/83 H 06/25/18 11:26 Pulse Ox 96 06/25/18 11:26 - Medical History PMH: HTN, End Stage Renal Disease Denies: Kidney Stones, Chronic Kidney Disease - [facility] Procedures (06/09/18) BYPASS L BRACH ART TO UP ARM VEIN W AUTOL ART, OPEN (04/07/18) INSERT OF INFUSION DEV INTO PERITON CAV, PERC ENDO APPROACH (05/27/17) INSERTION OF INFUSION DEV INTO SUP VENA CAVA, PERC APPROACH (04/07/18) RELEASE PERITONEUM, PERCUTANEOUS ENDOSCOPIC APPROACH (04/07/18) REMOVAL OF INFUSION DEVICE FROM LOWER VEIN, PERC APPROACH (04/07/18) Family History: States: Unknown Family Hx - Social History Hx Alcohol Use: No Hx Substance Use: No - Immunization History Hx Tetanus Toxoid Vaccination: Yes Hx Influenza Vaccination: Yes Hx Pneumococcal Vaccination: Yes Review Of Systems Except As Marked, All Systems Reviewed And Found Negative. Respiratory: Positive for: Shortness of Breath Physical Exam - Physical Exam Appears: Non-toxic, No Acute Distress Skin: Warm, Dry Head: Normacephalic Eye(s): bilateral: Normal Inspection Chest: Symmetrical, No Deformity, No Tenderness, Other (Dialysis catheter on right anterior chest wall ) Cardiovascular: Rhythm Regular, No Murmur Respiratory: Decreased Breath Sounds (b/l ), No Rales, No Rhonchi, No Stridor, No Wheezing Gastrointestinal/Abdominal: Soft, No Tenderness Extremity: Normal ROM (x4 ), Capillary Refill (<2 sec ), No Deformity, No Swelling, Other (maturing graft on left arm, AV fistula) Neurological/Psych: Oriented x3, Normal Speech ED Course And Treatment - Laboratory Results Result Diagrams: 06/26/18 08:05 06/26/18 08:05 Lab Results: PT 11.8 SECONDS (9.7-12.2) 06/25/18 12:13 INR 1.1 06/25/18 12:13 APTT 88 SECONDS (21-34) H 06/25/18 12:13 ECG: Interpreted By Me, Viewed By Me ECG Rhythm: Sinus Tachycardia Interpretation Of ECG: nml interval. nml axis. poor R wave progression. no ST or T wave abnormalities Rate From EC O2 Sat by Pulse Oximetry: 96 (RA) Pulse Ox Interpretation: Normal Medical Decision Making Medical Decision Making: Assessment: SOB and pleural effusion and ESRD Plans: -- chem labs -- blood work -- CXR -- EKG Disposition Discussed With Dr.: Aston Carrera Doctor Will See Patient In The: Hospital Counseled Patient/Family Regarding: Studies Performed, Diagnosis - Disposition Disposition: HOSPITALIZED Disposition Time: 13:13 Condition: FAIR - Clinical Impression Clinical Impression: ESRD (end stage renal disease), Pleural effusion, SOB (shortness of breath) - Scribe Statement The provider has reviewed the documentation as recorded by the Muna Salinas Do Provider Attestation: All medical record entries made by the Scribe were at my direction and personally dictated by me. I have reviewed the chart and agree that the record accurately reflects my personal performance of the history, physical exam, medical decision making, and the department course for this patient. I have also personally directed, reviewed, and agree with the discharge instructions and disposition.
[2018-06-25 12:53] LABS: ALB/GLOB RATIO 0.7 (1.0-2.1); ALBUMIN 4.2 g/dL (3.5-5.0); ALT/SGPT < 6 U/L (9-52); AST/SGOT 33 U/L (14-36); B-TYPE NATRIURETIC PEPTIDE 17300 pg/mL (0-450); BLOOD UREA NITROGEN 39 mg/dL (7-17); CALCIUM 11.4 mg/dl (8.6-10.4); GFR NON-AFRICAN AMERICAN 6
--- NOTE | 2018-06-25 17:18 | RAD ---
Date of service: 06/25/2018 PROCEDURE: CHEST RADIOGRAPH, 1 VIEW HISTORY: SOB COMPARISON: Comparison is made with 06/18/2018 FINDINGS: LUNGS: Partial collapse of the right lower lung is again noted due to right pleural effusion. Hazy opacity at the left lower lung is again noted. PLEURA: Bilateral pleural effusions larger on the right are again noted. The left pleural effusion appears slightly larger compared to the prior study. CARDIOVASCULAR: No aortic atherosclerotic calcification present. Cannot evaluate the cardiac size in this study due to right pleural effusion. OSSEOUS STRUCTURES: No significant abnormalities. VISUALIZED UPPER ABDOMEN: Normal. OTHER FINDINGS: Right-sided hemodialysis catheter is again seen in place. IMPRESSION: Possible slight increase in the size of the left pleural effusion compared to the prior study. Otherwise no significant interval changes.
[2018-06-25] MEDS: Epoetin Alfa 10,000 unit/ml Dialysis IV SCH (19:19)
--- NOTE | 2018-06-25 19:59 | PCM.RRT ---
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 - Situation Date: 06/25/18 Time [employer]PER[employer] was called: 19:45 [employer] OPERATOR [employer] Responder Arrival Time:: 19:57 [employer] Location:: 3D Dialysis [employer] Reason for Call: Tachycardia, Hypotension - IV IV Inserted during [employer]?: No - Respiratory [employer] Delivery Method: Nasal Cannula @L/min (2) - Diagnostic Test Ordered EKG: Yes - Stat Labs Ordered [employer] Stat Labs Ordered: CBC, BMP - Constitutional Appears: Non-toxic, No Acute Distress - Respiratory Exam Respiratory Exam: NORMAL BREATHING PATTERN. absent: Wheezes - Cardiovascular Exam Cardiovascular Exam: Tachycardia, +S1, +S2 - Neurological Exam Neurological Exam: Alert, Awake, CN II-XII Intact, Oriented x3 Plan - Assessment of Findings&Treatment Plan [employer] called for SBP 70s and Pulse 130s SBP came up to 108 and HR came down to 116 ordered repeat CBC CMP EKG Pt comfortable
[2018-06-25 20:52] LABS: HEMOGLOBIN 9.6 g/dL (11.0-16.0); MEAN CELL VOLUME 97.9 fL (81.0-99.0); MEAN CORPUSCULAR HEMOGLOBIN 30.5 pg (27.0-31.0); MEAN CORPUSCULAR HGB CONC 31.2 g/dL (33.0-37.0); MEAN PLATELET VOLUME 8.4 fL (7.2-11.7); RBC 3.13 Mil/uL (3.80-5.20); RED CELL DISTRIBUTION WIDTH 15.9 % (11.5-14.5); WHITE BLOOD COUNT 6.3 K/uL (4.8-10.8)
[2018-06-25 21:10] LABS: ALB/GLOB RATIO 0.7 (1.0-2.1); ALBUMIN 4.2 g/dL (3.5-5.0); CALCIUM 9.5 mg/dl (8.6-10.4)
[2018-06-25] MEDS ORDERED: Albumin Human 25% (12.5 gm/50 ml) IV ONE (21:30)
[2018-06-25 23:13] LABS: ABG ALLEN TEST POS; ARTERIAL BLOOD GAS HCO3 32.3 mmol/L (21-28); ARTERIAL BLOOD GAS HEMOGLOBIN 8.9 g/dL (11.7-17.4); ARTERIAL BLOOD GAS O2 SAT 62.2 % (95-98); ARTERIAL BLOOD GAS PCO2 68 mm/Hg (35-45); ARTERIAL BLOOD GAS PH 7.35 (7.35-7.45); ARTERIAL BLOOD GAS PO2 34 mm/Hg (80-100); ARTERIAL BLOOD GAS TCO2 39.6 mmol/L (22-28)
[2018-06-26] MEDS ORDERED: Verapamil 180 mg ER Tab PO ONE (01:36)
[2018-06-26] MEDS ORDERED: Albumin Human 25% (12.5 gm/50 ml) IV ONE (01:44)
[2018-06-26] MEDS ORDERED: Amikacin 1000 mg/4 ml Inj IVPB ONE (01:50)
--- NOTE | 2018-06-26 01:57 | CP.PCM.CON ---
History of Present Illness - History of Present Illness History of Present Illness: 47 y/o female pt with pmx of ESRD, dialysis wednesday, and wednesday presents to the ER c/o worsening SOB. Pt was recently admitted for pleural effusion and was discharged from a 3-day hospital stay x6 days ago. Pt now has worsening SOB and denies chest pain. 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 Review of Systems - Review of Systems Systems not reviewed;Unavailable: Unstable Vital Signs - Constitutional Constitutional: As Per HPI, Chills, Fever Past Patient History - Infectious Disease Hx of Infectious Diseases: None - Tetanus Immunizations Tetanus Immunization: Unknown - Past Medical History & Family History Past Medical History?: Yes - Past Social History Smoking Status: Never Smoked - CARDIAC Hx Cardiac Disorders: Yes Hx Hypertension: Yes - PULMONARY Hx Respiratory Disorders: Yes Hx Asthma: Yes - NEUROLOGICAL Hx Neurological Disorder: No - HEENT Hx HEENT Problems: No - RENAL Hx Chronic Kidney Disease: Yes Hx Dialysis: Yes Type of Dialysis Access: rt. permacath Date of Last Dialysis Treatment: 06/23/18 Hx Kidney Stones: No Other/Comment: HD [facility] - ENDOCRINE/METABOLIC Hx Endocrine Disorders: No - HEMATOLOGICAL/ONCOLOGICAL Hx Blood Disorders: Yes Hx Blood Transfusions: Yes () - INTEGUMENTARY Hx Dermatological Problems: No - MUSCULOSKELETAL/RHEUMATOLOGICAL Hx Musculoskeletal Disorders: No Hx Falls: No - GASTROINTESTINAL Hx Gastrointestinal Disorders: No - GENITOURINARY/GYNECOLOGICAL Hx Genitourinary Disorders: No - PSYCHIATRIC Hx Psychophysiologic Disorder: No Hx Substance Use: No - SURGICAL HISTORY Hx Surgeries: Yes Other/Comment: left lung drain - ANESTHESIA Hx Anesthesia: No Hx Anesthesia Reactions: No Meds Allergies/Adverse Reactions: Allergies Allergy/AdvReac Type Severity Reaction Status Date / Time No Known Allergies Allergy Verified 06/25/18 11:22 - Medications Medications: Current Medications Epoetin Milton (Procrit) 10,000 unit IV TTS [facility] Last Admin: 06/25/18 19:19 Dose: 10,000 unit Vancomycin HCl 1 gm/ Sodium (Chloride) 250 mls @ 166.7 mls/hr IVPB STAT [facility]; Protocol Stop: 06/26/18 03:19 Isoniazid (Niazid) 300 mg PO DAILY [facility]; Protocol Rifampin (Rifampin Cap) 600 mg PO DAILY [facility]; Protocol Physical Exam - Head Exam Head Exam: ATRAUMATIC, NORMAL INSPECTION - Eye Exam Eye Exam: EOMI - ENT Exam ENT Exam: Mucous Membranes Moist - Respiratory Exam Respiratory Exam: Decreased Breath Sounds, Rales, Rhonchi. absent: Chest Wall T enderness, Respiratory Distress, Stridor - Cardiovascular Exam Cardiovascular Exam: Tachycardia, +S1, +S2, Systolic Murmur - GI/Abdominal Exam GI & Abdominal Exam: Normal Bowel Sounds, Soft - Extremities Exam Extremities exam: Positive for: normal inspection - Neurological Exam Neurological exam: Oriented x3 - Skin Skin Exam: Normal Color Results - Vital Signs Recent Vital Signs: Last Vital Signs Temp 98.2 F 06/25/18 20:25 Pulse 132 H 06/25/18 20:25 Resp 20 06/25/18 20:25 BP 114/72 06/25/18 20:25 Pulse Ox 95 06/25/18 20:25 - Labs Result Diagrams: 06/25/18 20:49 06/25/18 20:49 Labs: Laboratory Results - last 24 hr 06/25/18 06/25/18 06/25/18 12:13 12:13 12:13 WBC 4.8 RBC 2.73 L Hgb 8.6 L Hct 27.1 L MCV 99.0 MCH 31.3 H MCHC 31.6 L RDW 16.4 H Plt Count 307 MPV 8.5 Neut % (Auto) 72.4 Lymph % (Auto) 14.0 L Villalba % (Auto) 11.1 H Eos % (Auto) 1.6 Baso % (Auto) 0.9 Neut # (Auto) 3.5 Lymph # (Auto) 0.7 L Villalba # (Auto) 0.5 Eos # (Auto) 0.1 Baso # (Auto) 0.0 PT 11.8 INR 1.1 APTT 88 H Puncture Site pCO2 pO2 HCO3 ABG pH ABG Total CO2 ABG O2 Saturation ABG Base Excess ABG Hemoglobin ABG Carboxyhemoglobin POC ABG HHb (Measured) ABG Methemoglobin Yang Test A-a O2 Difference Respiratory Index Hgb O2 Saturation FiO2 Crit Value Called To Crit Value Called By Crit Value Read Back Blood Gas Notified Time Sodium 136 Potassium 5.7 H Chloride 95 L Carbon Dioxide 31 H Anion Gap 17 BUN 39 H Creatinine 7.2 H Est GFR ( Amer) 7 Est GFR (Non-Af Amer) 6 Random Glucose 91 D Calcium 11.4 H Phosphorus Magnesium Total Bilirubin 1.5 H AST 33 ALT < 6 L D Alkaline Phosphatase 67 Troponin I 0.0580 NT-Pro-B Natriuret Pep 90337 H Total Protein 10.0 H Albumin 4.2 Globulin 5.8 H Albumin/Globulin Ratio 0.7 L 06/25/18 06/25/18 06/25/18 20:49 20:49 23:00 WBC 6.3 RBC 3.13 L Hgb 9.6 L Hct 30.7 L MCV 97.9 MCH 30.5 MCHC 31.2 L RDW 15.9 H Plt Count 324 MPV 8.4 Neut % (Auto) Lymph % (Auto) Villalba % (Auto) Eos % (Auto) Baso % (Auto) Neut # (Auto) Lymph # (Auto) Villalba # (Auto) Eos # (Auto) Baso # (Auto) PT INR APTT Puncture Site Rba pCO2 68 H pO2 34 L* HCO3 32.3 H ABG pH 7.35 ABG Total CO2 39.6 H ABG O2 Saturation 62.2 L ABG Base Excess 10.2 H ABG Hemoglobin 8.9 L ABG Carboxyhemoglobin 1.9 H POC ABG HHb (Measured) 36.8 H ABG Methemoglobin 0.8 Yang Test Pos A-a O2 Difference 138.0 Respiratory Index 4.1 Hgb O2 Saturation 60.5 L FiO2 36.0 Crit Value Called To Dr briones Crit Value Called By [facility] Crit Value Read Back Y Blood Gas Notified Time 2312 Sodium 139 Potassium 3.1 L Chloride 96 L Carbon Dioxide 32 H Anion Gap 15 BUN 14 Creatinine 2.7 H Est GFR ( Amer) 23 Est GFR (Non-Af Amer) 19 Random Glucose 98 Calcium 9.5 Phosphorus 3.3 Magnesium 1.9 Total Bilirubin 0.8 AST 17 ALT 7 L Alkaline Phosphatase 84 Troponin I NT-Pro-B Natriuret Pep Total Protein 9.9 H Albumin 4.2 Globulin 5.8 H Albumin/Globulin Ratio 0.7 L Assessment & Plan - Assessment and Plan (Free Text) Assessment: SVT: sinus in origin, underlying etiology, possible volume loss /fever, start oral verapamil, obtain echo r/o pericarditis -Sepsis: continue avila cultuer, start vanco + amikacin, suspect sepsis 2nd GPC bacteremia, check echo r/o IE, will not benefit from 30 ml/kg of IVF 2nd leurle effusion, continue serial lactic and abx -dyspnea: c/w chronic CO2 retention, contineu bi-pap, plan for thoracentesis in AM -NPO for thoracentesis -possibel voluem loss: albumin 25 mg now -pleural effusoiin: will benefit from thoracentesis -contine dvt/pud ppx Patient remains critical and will benefit from ICU level care cc time 36 minutes - Date & Time Date: 06/26/18 Time: 01:57
[2018-06-26 08:20] LABS: BASO % 0.7 % (0.0-2.0); EOS # 0.1 K/uL (0.0-0.7); EOS % 2.1 % (0.0-4.0); HEMOGLOBIN 10.2 g/dL (11.0-16.0); LYMPH # 0.8 K/uL (1.0-4.3); LYMPH % 12.5 % (20.0-40.0); MEAN CORPUSCULAR HEMOGLOBIN 31.7 pg (27.0-31.0); MEAN CORPUSCULAR HGB CONC 31.1 g/dL (33.0-37.0); MEAN PLATELET VOLUME 9.4 fL (7.2-11.7); MONO # 0.7 K/uL (0.0-0.8); MONO % 10.6 % (0.0-10.0); NEUT # 4.7 K/uL (1.8-7.0); NEUT % 74.1 % (50.0-75.0); NRBC % 0.1 % (0.0-2.0); RBC 3.22 Mil/uL (3.80-5.20); RED CELL DISTRIBUTION WIDTH 16.4 % (11.5-14.5); WHITE BLOOD COUNT 6.4 K/uL (4.8-10.8)
[2018-06-26 08:38] LABS: MEAN CELL VOLUME 101.9 fL (81.0-99.0)
[2018-06-26 08:55] LABS: ALB/GLOB RATIO 0.8 (1.0-2.1); ALBUMIN 4.2 g/dL (3.5-5.0); ALT/SGPT < 6 U/L (9-52); AST/SGOT 30 U/L (14-36); CALCIUM 10.4 mg/dl (8.6-10.4); GFR NON-AFRICAN AMERICAN 9
[2018-06-26 09:20] LABS: BLOOD UREA NITROGEN 27 mg/dL (7-17)
[2018-06-26] MEDS: Pantoprazole 40 mg EC Tab PO SCH (09:43)
--- NOTE | 2018-06-26 10:27 | CP.PCM.CON ---
History of Present Illness - History of Present Illness History of Present Illness: I was asked to see patient by Dr Briones. Patient was seen 06/26/18 1024 Patient is a 47 year old female with HTN, ESRD on HD pleural effusion who presents with dyspnea. The patient had a recent hospital stay for dsypnea and pleural effusion. Chest tube was placed. The patient was discharged but returns with recurrent dyspnea and effusion. She was tachycardic and by report was in SVT, but I do not see rhythm strips documenting this. Review of Systems - Constitutional Constitutional: absent: As Per HPI, Anorexia, Chills, Daytime Sleepiness, Excessive Sweating, Fatigue, Fever, Frequent Falls, Headache, Increased Appetite, Lethargy, Malaise, Night Sweats, Snoring, Sleep Apnea, Weight Gain, Weight Loss, Weakness, Other - EENT Eyes: absent: As Per HPI, Blind Spots, Blurred Vision, Change in Vision, Decreased Night Vision, Diplopia, Discharge, Dry Eye, Exophthalmos, Floaters, Irritation, Itchy Eyes, Loss of Peripheral Vision, Pain, Photophobia, Requires Corrective Lenses, Sees Flashes, Spots in Vision, Tunnel Vision, Other Visual Disturbances, Loss of Vision, Other Ears: absent: As Per HPI, Decreased Hearing, Ear Discharge, Ear Pain, Tinnitus, Abnormal Hearing, Disequilibrium, Dizziness, Other Nose/Mouth/Throat: absent: As Per HPI, Epistaxis, Nasal Congestion, Nasal Discharge, Nasal Obstruction, Nasal Trauma, Nose Pain, Post Nasal Drip, Sinus Pain, Sinus Pressure, Bleeding Gums, Change in Voice, Dental Pain, Dry Mouth, Dysphagia, Halitosis, Hoarsness, Lip Swelling, Mouth Lesions, Mouth Pain, Odynophagia, Sore Throat, Throat Swelling, Tongue Swelling, Facial Pain, Neck Pain, Neck Mass, Other - Breasts Breasts: absent: As Per HPI, Change in Shape, Mass, Pain, Nipple Discharge, Nipple Inversion, Skin Changes, Swelling, Other - Cardiovascular Cardiovascular: Dyspnea, Rapid Heart Rate - Respiratory Respiratory: Dyspnea - Gastrointestinal Gastrointestinal: absent: As Per HPI, Abdominal Pain, Belching, Bloating, Change in Bowel Habits, Change in Stool Character, Coffee Ground Emesis, Constipation, Cramping, Diarrhea, Dyspepsia, Dysphagia, Early Satiety, Excessive Flatus, Fecal Incontinence, Heartburn, Hematemesis, Hematochezia, Loose Stools, Melena, Nausea, Odynophagia, Temesmus, Vomiting, Other - Musculoskeletal Musculoskeletal: absent: As Per HPI, Abnormal Gait, Arthralgias, Atrophy, Back Pain, Deformity, Joint Swelling, Limited Range of Motion, Loss of Height, Muscle Cramps, Muscle Weakness, Myalgias, Neck Pain, Numbness, Radiating Pain into Limb , Stiffness, Tingling, Other - Integumentary Integumentary: absent: As Per HPI, Acne, Alopecia, Bleeding Lesions, Change in Hair, Change in Nails, Change in Pigmentation, Changing Lesions, Dry Skin, Erythema, Furuncle, Hirsutism, Lesions, New Lesions, Non-Healing Lesions, Photosensitivity, Pruritus, Rash, Skin Pain, Skin Ulcer, Sores, Striae, Swelling, Unusual Bruising, Wounds, Jaundice, Other - Neurological Neurological: absent: As Per HPI, Abnormal Gait, Abnormal Hearing, Abnormal Movements, Abnormal Speech, Behavioral Changes, Burning Sensations, Confusion, Convulsions, Disequilibrium, Dizziness, Numbness, Focal Weakness, Frequent Falls, Headaches, Lack of Coordination, Loss of Vision, Memory Loss, Paresthesia s, Radicular Pain, Restless Legs, Sensory Deficit, Syncope, Tingling, Tremor, Vertigo, Weakness, Other Visual Disturbances, Other - Psychiatric Psychiatric: absent: As Per HPI, Abnormal Sleep Pattern, Anhedonia, Anxiety, Auditory Hallucinations, Behavioral Changes, Change in Appetite, Change in Libido, Confusion, Depression, Difficulty Concentrating, Hallucinations, Homicidal Ideation, Hopelessness, Irritability, Memory Loss, Mood Swings, Panic Attacks, Paranoia, Suicidal Ideation, Visual Hallucinations, Tactile Hallucinations, Other - Endocrine Endocrine: absent: As Per HPI, Change in Body Appearance, Change in Libido, Cold Intolorance, Deepening of Voice, Excessive Sweating, Fatigue, Flushing, Heat Intolorance, Increase in Ring/Shoe/Hat Size, Palpitations, Polydipsia, Polyphagia, Polyuria, Other - Hematologic/Lymphatic Hematologic: absent: As Per HPI, Easy Bleeding, Easy Bruising, Lymphadenopathy, Other Past Patient History - Infectious Disease Hx of Infectious Diseases: None - Tetanus Immunizations Tetanus Immunization: Unknown - Past Medical History & Family History Past Medical History?: Yes - Past Social History Smoking Status: Never Smoked - CARDIAC Hx Cardiac Disorders: Yes Hx Hypertension: Yes - PULMONARY Hx Respiratory Disorders: Yes Hx Asthma: Yes - NEUROLOGICAL Hx Neurological Disorder: No - HEENT Hx HEENT Problems: No - RENAL Hx Chronic Kidney Disease: Yes Hx Dialysis: Yes Type of Dialysis Access: rt. permacath Date of Last Dialysis Treatment: 06/23/18 Hx Kidney Stones: No Other/Comment: HD [facility] - ENDOCRINE/METABOLIC Hx Endocrine Disorders: No - HEMATOLOGICAL/ONCOLOGICAL Hx Blood Disorders: Yes Hx Blood Transfusions: Yes () - INTEGUMENTARY Hx Dermatological Problems: No - MUSCULOSKELETAL/RHEUMATOLOGICAL Hx Musculoskeletal Disorders: No Hx Falls: No - GASTROINTESTINAL Hx Gastrointestinal Disorders: No - GENITOURINARY/GYNECOLOGICAL Hx Genitourinary Disorders: No - PSYCHIATRIC Hx Psychophysiologic Disorder: No Hx Substance Use: No - SURGICAL HISTORY Hx Surgeries: Yes Other/Comment: left lung drain - ANESTHESIA Hx Anesthesia: No Hx Anesthesia Reactions: No Meds Allergies/Adverse Reactions: Allergies Allergy/AdvReac Type Severity Reaction Status Date / Time No Known Allergies Allergy Verified 06/25/18 11:22 - Medications Medications: Current Medications Epoetin Milton (Procrit) 10,000 unit IV TTS [facility] Last Admin: 06/25/18 19:19 Dose: 10,000 unit Heparin Sodium (Porcine) (Heparin) 5,000 units SC Q12 [facility] Last Admin: 06/26/18 09:44 Dose: 5,000 units Isoniazid (Niazid) 300 mg PO 0200 [facility]; Protocol Pantoprazole Sodium (Protonix Ec Tab) 40 mg PO DAILY [facility] Last Admin: 06/26/18 09:43 Dose: 40 mg Rifampin (Rifampin Cap) 600 mg PO DAILY [facility]; Protocol Last Admin: 06/26/18 05:17 Dose: 600 mg Physical Exam - Constitutional Appears: Toxic - Head Exam Head Exam: NORMAL INSPECTION - Eye Exam Eye Exam: Normal appearance - ENT Exam ENT Exam: Mucous Membranes Moist - Neck Exam Neck exam: Positive for: Full Rom - Respiratory Exam Respiratory Exam: Decreased Breath Sounds - Cardiovascular Exam Cardiovascular Exam: Tachycardia, REGULAR RHYTHM - GI/Abdominal Exam GI & Abdominal Exam: Normal Bowel Sounds - Rectal Exam Rectal Exam: Deferred - Extremities Exam Extremities exam: Negative for: pedal edema - Back Exam Back exam: NORMAL INSPECTION - Neurological Exam Neurological exam: Alert, Oriented x3 - Psychiatric Exam Psychiatric exam: Normal Affect - Skin Skin Exam: Normal Color Results - Vital Signs Recent Vital Signs: Last Vital Signs Temp 99.1 F 06/26/18 06:00 Pulse 116 H 06/26/18 08:19 Resp 20 06/26/18 08:19 BP 138/90 06/26/18 08:19 Pulse Ox 100 06/26/18 08:19 - Labs Result Diagrams: 06/26/18 08:05 06/26/18 08:05 Labs: Laboratory Results - last 24 hr 06/25/18 06/25/18 06/25/18 12:13 12:13 12:13 WBC 4.8 RBC 2.73 L Hgb 8.6 L Hct 27.1 L MCV 99.0 MCH 31.3 H MCHC 31.6 L RDW 16.4 H Plt Count 307 MPV 8.5 Neut % (Auto) 72.4 Lymph % (Auto) 14.0 L [place] % (Auto) 11.1 H Eos % (Auto) 1.6 Baso % (Auto) 0.9 Neut # (Auto) 3.5 Lymph # (Auto) 0.7 L [place] # (Auto) 0.5 Eos # (Auto) 0.1 Baso # (Auto) 0.0 PT 11.8 INR 1.1 APTT 88 H Puncture Site pCO2 pO2 HCO3 ABG pH ABG Total CO2 ABG O2 Saturation ABG Base Excess ABG Hemoglobin ABG Carboxyhemoglobin POC ABG HHb (Measured) ABG Methemoglobin Yang Test A-a O2 Difference Respiratory Index Hgb O2 Saturation FiO2 Crit Value Called To Crit Value Called By Crit Value Read Back Blood Gas Notified Time Sodium 136 Potassium 5.7 H Chloride 95 L Carbon Dioxide 31 H Anion Gap 17 BUN 39 H Creatinine 7.2 H Est GFR ( Amer) 7 Est GFR (Non-Af Amer) 6 Random Glucose 91 D Lactic Acid Calcium 11.4 H Phosphorus Magnesium Total Bilirubin 1.5 H AST 33 ALT < 6 L D Alkaline Phosphatase 67 Troponin I 0.0580 NT-Pro-B Natriuret Pep 52424 H Total Protein 10.0 H Albumin 4.2 Globulin 5.8 H Albumin/Globulin Ratio 0.7 L 06/25/18 06/25/18 06/25/18 20:49 20:49 23:00 WBC 6.3 RBC 3.13 L Hgb 9.6 L Hct 30.7 L MCV 97.9 MCH 30.5 MCHC 31.2 L RDW 15.9 H Plt Count 324 MPV 8.4 Neut % (Auto) Lymph % (Auto) [place] % (Auto) Eos % (Auto) Baso % (Auto) Neut # (Auto) Lymph # (Auto) [place] # (Auto) Eos # (Auto) Baso # (Auto) PT INR APTT Puncture Site Rba pCO2 68 H pO2 34 L* HCO3 32.3 H ABG pH 7.35 ABG Total CO2 39.6 H ABG O2 Saturation 62.2 L ABG Base Excess 10.2 H ABG Hemoglobin 8.9 L ABG Carboxyhemoglobin 1.9 H POC ABG HHb (Measured) 36.8 H ABG Methemoglobin 0.8 Yang Test Pos A-a O2 Difference 138.0 Respiratory Index 4.1 Hgb O2 Saturation 60.5 L FiO2 36.0 Crit Value Called To Dr briones Crit Value Called By [facility] Crit Value Read Back Y Blood Gas Notified Time 2312 Sodium 139 Potassium 3.1 L Chloride 96 L Carbon Dioxide 32 H Anion Gap 15 BUN 14 Creatinine 2.7 H Est GFR ( Amer) 23 Est GFR (Non-Af Amer) 19 Random Glucose 98 Lactic Acid Calcium 9.5 Phosphorus 3.3 Magnesium 1.9 Total Bilirubin 0.8 AST 17 ALT 7 L Alkaline Phosphatase 84 Troponin I NT-Pro-B Natriuret Pep Total Protein 9.9 H Albumin 4.2 Globulin 5.8 H Albumin/Globulin Ratio 0.7 L 06/26/18 06/26/18 06/26/18 03:51 08:05 08:05 WBC 6.4 RBC 3.22 L Hgb 10.2 L Hct 32.8 L MCV 101.9 H D MCH 31.7 H MCHC 31.1 L RDW 16.4 H Plt Count 234 MPV 9.4 Neut % (Auto) 74.1 Lymph % (Auto) 12.5 L [place] % (Auto) 10.6 H Eos % (Auto) 2.1 Baso % (Auto) 0.7 Neut # (Auto) 4.7 Lymph # (Auto) 0.8 L [place] # (Auto) 0.7 Eos # (Auto) 0.1 Baso # (Auto) 0.0 PT INR APTT Puncture Site pCO2 pO2 HCO3 ABG pH ABG Total CO2 ABG O2 Saturation ABG Base Excess ABG Hemoglobin ABG Carboxyhemoglobin POC ABG HHb (Measured) ABG Methemoglobin Yang Test A-a O2 Difference Respiratory Index Hgb O2 Saturation FiO2 Crit Value Called To Crit Value Called By Crit Value Read Back Blood Gas Notified Time Sodium 138 Potassium 4.5 Chloride 98 Carbon Dioxide 28 Anion Gap 17 BUN 27 H Creatinine 5.3 H Est GFR ( Amer) 10 Est GFR (Non-Af Amer) 9 Random Glucose 86 Lactic Acid 0.9 Calcium 10.4 Phosphorus 6.0 H Magnesium 2.0 Total Bilirubin 1.3 AST 30 ALT < 6 L Alkaline Phosphatase 70 Troponin I NT-Pro-B Natriuret Pep Total Protein 9.7 H Albumin 4.2 Globulin 5.5 H Albumin/Globulin Ratio 0.8 L - EKG Data EKG Interpreted by: Myself Rate: Tachycardia Assessment & Plan (1) Tachycardia Assessment and Plan: likely due to recurrent pleural effusion. remains asymptomatic and hemodynamically stable. check echocardiogram Status: Acute (2) SOB (shortness of breath) Assessment and Plan: due to pleural effusion. check echo Status: Acute (3) HTN (hypertension) Assessment and Plan: will monitor Status: Chronic
--- NOTE | 2018-06-26 12:43 | RAD ---
Date of service: 06/26/2018 HISTORY: effusion COMPARISON: Comparison is made with the previous study dated 06/25/2018 FINDINGS: LUNGS: No evidence of significant interval changes in the lungs noted since the prior study PLEURA: Bilateral pleural effusions larger on the right. CARDIOVASCULAR: No aortic atherosclerotic calcification present. Normal cardiac size. No pulmonary vascular congestion. OSSEOUS STRUCTURES: No significant abnormalities. VISUALIZED UPPER ABDOMEN: Normal. OTHER FINDINGS: Right-sided hemodialysis catheter is seen in place. IMPRESSION: Overall no significant interval changes noted since the prior study.
--- NOTE | 2018-06-26 14:05 | CP.PCM.CON ---
History of Present Illness - History of Present Illness History of Present Illness: CARDIOTHORACIC CONSULT NOTE FOR DR. MAO 47F presents with shortness of breath which began 3 day after leaving the hospital on last admission. Patient came to hospital yesterday and states the SOB has improved. She denies chest pain, denies abdominal pain, nausea, vomiting. PMH: ESRD PSH: peritoneal dialysis catheter insertion and removal, AV fistula, left VATs pleural biopsy Past Patient History - Infectious Disease Hx of Infectious Diseases: None - Tetanus Immunizations Tetanus Immunization: Unknown - Past Medical History & Family History Past Medical History?: Yes - Past Social History Smoking Status: Never Smoked - CARDIAC Hx Cardiac Disorders: Yes Hx Hypertension: Yes - PULMONARY Hx Respiratory Disorders: Yes Hx Asthma: Yes - NEUROLOGICAL Hx Neurological Disorder: No - HEENT Hx HEENT Problems: No - RENAL Hx Chronic Kidney Disease: Yes Hx Dialysis: Yes Type of Dialysis Access: rt. permacath Date of Last Dialysis Treatment: 06/23/18 Hx Kidney Stones: No Other/Comment: [facility] - ENDOCRINE/METABOLIC Hx Endocrine Disorders: No - HEMATOLOGICAL/ONCOLOGICAL Hx Blood Disorders: Yes Hx Blood Transfusions: Yes () - INTEGUMENTARY Hx Dermatological Problems: No - MUSCULOSKELETAL/RHEUMATOLOGICAL Hx Musculoskeletal Disorders: No Hx Falls: No - GASTROINTESTINAL Hx Gastrointestinal Disorders: No - GENITOURINARY/GYNECOLOGICAL Hx Genitourinary Disorders: No - PSYCHIATRIC Hx Psychophysiologic Disorder: No Hx Substance Use: No - SURGICAL HISTORY Hx Surgeries: Yes Other/Comment: left lung drain - ANESTHESIA Hx Anesthesia: No Hx Anesthesia Reactions: No Meds Allergies/Adverse Reactions: Allergies Allergy/AdvReac Type Severity Reaction Status Date / Time No Known Allergies Allergy Verified 06/25/18 11:22 - Medications Medications: Current Medications Epoetin Milton (Procrit) 10,000 unit IV TTS [facility] Last Admin: 06/25/18 19:19 Dose: 10,000 unit Heparin Sodium (Porcine) (Heparin) 5,000 units SC Q12 [facility] Last Admin: 06/26/18 09:44 Dose: 5,000 units Isoniazid (Niazid) 300 mg PO 0200 [facility]; Protocol Pantoprazole Sodium (Protonix Ec Tab) 40 mg PO DAILY [facility] Last Admin: 06/26/18 09:43 Dose: 40 mg Rifampin (Rifampin Cap) 600 mg PO 0200 [facility]; Protocol Physical Exam - Constitutional Appears: Non-toxic, No Acute Distress - Respiratory Exam Additional comments: tachypnic Previous left chest tube site CDI - Cardiovascular Exam Cardiovascular Exam: REGULAR RHYTHM, +S1, +S2 - GI/Abdominal Exam GI & Abdominal Exam: Soft. absent: Distended, Firm, Guarding, Rebound, Rigid, Tenderness - Extremities Exam Extremities exam: Negative for: pedal edema, tenderness - Neurological Exam Neurological exam: Alert, Oriented x3 - Psychiatric Exam Psychiatric exam: Normal Affect, Normal Mood - Skin Skin Exam: Dry, Intact, Normal Color, Warm Results - Vital Signs Recent Vital Signs: Last Vital Signs Temp 98.7 F 06/26/18 12:00 Pulse 135 H 06/26/18 13:19 Resp 41 H 06/26/18 13:19 BP 129/79 06/26/18 13:19 Pulse Ox 97 06/26/18 13:19 - Labs Result Diagrams: 06/26/18 08:05 06/26/18 08:05 Labs: Laboratory Results - last 24 hr 06/25/18 06/25/18 06/25/18 20:49 20:49 23:00 WBC 6.3 RBC 3.13 L Hgb 9.6 L Hct 30.7 L MCV 97.9 MCH 30.5 MCHC 31.2 L RDW 15.9 H Plt Count 324 MPV 8.4 Neut % (Auto) Lymph % (Auto) Coffee % (Auto) Eos % (Auto) Baso % (Auto) Neut # (Auto) Lymph # (Auto) Coffee # (Auto) Eos # (Auto) Baso # (Auto) Puncture Site Rba pCO2 68 H pO2 34 L* HCO3 32.3 H ABG pH 7.35 ABG Total CO2 39.6 H ABG O2 Saturation 62.2 L ABG Base Excess 10.2 H ABG Hemoglobin 8.9 L ABG Carboxyhemoglobin 1.9 H POC ABG HHb (Measured) 36.8 H ABG Methemoglobin 0.8 Yang Test Pos A-a O2 Difference 138.0 Respiratory Index 4.1 Hgb O2 Saturation 60.5 L FiO2 36.0 Crit Value Called To Dr briones Crit Value Called By [facility] Crit Value Read Back Y Blood Gas Notified Time 2312 Sodium 139 Potassium 3.1 L Chloride 96 L Carbon Dioxide 32 H Anion Gap 15 BUN 14 Creatinine 2.7 H Est GFR ( Amer) 23 Est GFR (Non-Af Amer) 19 Random Glucose 98 Lactic Acid Calcium 9.5 Phosphorus 3.3 Magnesium 1.9 Total Bilirubin 0.8 AST 17 ALT 7 L Alkaline Phosphatase 84 Total Protein 9.9 H Albumin 4.2 Globulin 5.8 H Albumin/Globulin Ratio 0.7 L 06/26/18 06/26/18 06/26/18 03:51 08:05 08:05 WBC 6.4 RBC 3.22 L Hgb 10.2 L Hct 32.8 L MCV 101.9 H D MCH 31.7 H MCHC 31.1 L RDW 16.4 H Plt Count 234 MPV 9.4 Neut % (Auto) 74.1 Lymph % (Auto) 12.5 L [place] % (Auto) 10.6 H Eos % (Auto) 2.1 Baso % (Auto) 0.7 Neut # (Auto) 4.7 Lymph # (Auto) 0.8 L [place] # (Auto) 0.7 Eos # (Auto) 0.1 Baso # (Auto) 0.0 Puncture Site pCO2 pO2 HCO3 ABG pH ABG Total CO2 ABG O2 Saturation ABG Base Excess ABG Hemoglobin ABG Carboxyhemoglobin POC ABG HHb (Measured) ABG Methemoglobin Yang Test A-a O2 Difference Respiratory Index Hgb O2 Saturation FiO2 Crit Value Called To Crit Value Called By Crit Value Read Back Blood Gas Notified Time Sodium 138 Potassium 4.5 Chloride 98 Carbon Dioxide 28 Anion Gap 17 BUN 27 H Creatinine 5.3 H Est GFR ( Amer) 10 Est GFR (Non-Af Amer) 9 Random Glucose 86 Lactic Acid 0.9 Calcium 10.4 Phosphorus 6.0 H Magnesium 2.0 Total Bilirubin 1.3 AST 30 ALT < 6 L Alkaline Phosphatase 70 Total Protein 9.7 H Albumin 4.2 Globulin 5.5 H Albumin/Globulin Ratio 0.8 L Assessment & Plan - Assessment and Plan (Free Text) Assessment: 47F with left sided pleural effusions Plan: - CT chest with IV contrast - Dialysis tomorrow if needed - Recommend drainage by Interventional Radiologist for eval Discussed with Dr. Dayanara Toney, PGY3
[2018-06-26] MEDS ORDERED: Iodixanol 320 MG/ML 100 ML BOTTLE IV ONE (15:53)
--- NOTE | 2018-06-26 16:03 | CP.PCM.CON ---
History of Present Illness - History of Present Illness History of Present Illness: renal consult for esrd management 47 yo [place] female with ESRD, HTN, chronic GN, failed PD, presents for sob. Recent admit for bilateral pleural effusions. Pt had thoracentesis and VAT biopsy. Biopsy reportedly revealed granulomas, but negative for AFB. 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 Received HD yesterday, but treatment was terminated 30 minutes early for tachycardia and drop in BP, necessitating an [employer]. Appears to have been sinus tachycardia. Of note, pt seems to have hypercalcemia on this admit and last. Not taking calcium containing medicines. No fever. + cough No one sick at home Travel to [facility] Review of Systems - Constitutional Constitutional: Fatigue, Weakness. absent: Fever - EENT Nose/Mouth/Throat: absent: Nasal Congestion, Nasal Discharge - Cardiovascular Cardiovascular: Lightheadedness, Rapid Heart Rate - Respiratory Respiratory: Cough, Dyspnea - Musculoskeletal Musculoskeletal: absent: Abnormal Gait, Arthralgias - Neurological Neurological: absent: Abnormal Movements, Abnormal Speech - Psychiatric Psychiatric: absent: Memory Loss, Mood Swings Past Patient History - Infectious Disease Hx of Infectious Diseases: None - Tetanus Immunizations Tetanus Immunization: Unknown - Past Medical History & Family History Past Medical History?: Yes - Past Social History Smoking Status: Never Smoked - CARDIAC Hx Cardiac Disorders: Yes Hx Hypertension: Yes - PULMONARY Hx Respiratory Disorders: Yes Hx Asthma: Yes - NEUROLOGICAL Hx Neurological Disorder: No - HEENT Hx HEENT Problems: No - RENAL Hx Chronic Kidney Disease: Yes Hx Dialysis: Yes Type of Dialysis Access: rt. permacath Date of Last Dialysis Treatment: 06/23/18 Hx Kidney Stones: No Other/Comment: HD [facility] - ENDOCRINE/METABOLIC Hx Endocrine Disorders: No - HEMATOLOGICAL/ONCOLOGICAL Hx Blood Disorders: Yes Hx Blood Transfusions: Yes () - INTEGUMENTARY Hx Dermatological Problems: No - MUSCULOSKELETAL/RHEUMATOLOGICAL Hx Musculoskeletal Disorders: No Hx Falls: No - GASTROINTESTINAL Hx Gastrointestinal Disorders: No - GENITOURINARY/GYNECOLOGICAL Hx Genitourinary Disorders: No - PSYCHIATRIC Hx Psychophysiologic Disorder: No Hx Substance Use: No - SURGICAL HISTORY Hx Surgeries: Yes Other/Comment: left lung drain - ANESTHESIA Hx Anesthesia: No Hx Anesthesia Reactions: No Meds Allergies/Adverse Reactions: Allergies Allergy/AdvReac Type Severity Reaction Status Date / Time No Known Allergies Allergy Verified 06/25/18 11:22 - Medications Medications: Current Medications Epoetin [place] (Procrit) 10,000 unit IV TTS [facility] Last Admin: 06/25/18 19:19 Dose: 10,000 unit Heparin Sodium (Porcine) (Heparin) 5,000 units SC Q12 [facility] Last Admin: 06/26/18 09:44 Dose: 5,000 units Isoniazid (Niazid) 300 mg PO 0200 [facility]; Protocol Pantoprazole Sodium (Protonix Ec Tab) 40 mg PO DAILY [facility] Last Admin: 06/26/18 09:43 Dose: 40 mg Rifampin (Rifampin Cap) 600 mg PO 0200 [facility]; Protocol Sevelamer Carbonate (Renvela) 800 mg PO TIDCC [facility] Physical Exam - Constitutional Appears: Non-toxic, Chronically Ill - Head Exam Head Exam: ATRAUMATIC, NORMAL INSPECTION - Eye Exam Eye Exam: EOMI, Normal appearance - ENT Exam ENT Exam: Mucous Membranes Moist - Neck Exam Neck exam: Positive for: Full Rom. Negative for: Lymphadenopathy - Respiratory Exam Respiratory Exam: Decreased Breath Sounds. absent: Wheezes - Cardiovascular Exam Cardiovascular Exam: Tachycardia, REGULAR RHYTHM. absent: Rubs - GI/Abdominal Exam GI & Abdominal Exam: absent: Distended, Guarding - Back Exam Back exam: NORMAL INSPECTION - Neurological Exam Neurological exam: Alert - Psychiatric Exam Psychiatric exam: Normal Affect, Normal Mood Results - Vital Signs Recent Vital Signs: Last Vital Signs Temp 98.7 F 06/26/18 12:00 Pulse 122 H 06/26/18 15:19 Resp 30 H 06/26/18 15:19 BP 116/78 06/26/18 15:19 Pulse Ox 100 06/26/18 15:19 - Labs Result Diagrams: 06/26/18 08:05 06/26/18 08:05 Labs: Laboratory Results - last 24 hr 06/25/18 06/25/18 06/25/18 20:49 20:49 23:00 WBC 6.3 RBC 3.13 L Hgb 9.6 L Hct 30.7 L MCV 97.9 MCH 30.5 MCHC 31.2 L RDW 15.9 H Plt Count 324 MPV 8.4 Neut % (Auto) Lymph % (Auto) [place] % (Auto) Eos % (Auto) Baso % (Auto) Neut # (Auto) Lymph # (Auto) [place] # (Auto) Eos # (Auto) Baso # (Auto) Puncture Site Rba pCO2 68 H pO2 34 L* HCO3 32.3 H ABG pH 7.35 ABG Total CO2 39.6 H ABG O2 Saturation 62.2 L ABG Base Excess 10.2 H ABG Hemoglobin 8.9 L ABG Carboxyhemoglobin 1.9 H POC ABG HHb (Measured) 36.8 H ABG Methemoglobin 0.8 Yang Test Pos A-a O2 Difference 138.0 Respiratory Index 4.1 Hgb O2 Saturation 60.5 L FiO2 36.0 Crit Value Called To Dr briones Crit Value Called By [facility] Crit Value Read Back Y Blood Gas Notified Time 2312 Sodium 139 Potassium 3.1 L Chloride 96 L Carbon Dioxide 32 H Anion Gap 15 BUN 14 Creatinine 2.7 H Est GFR ( Amer) 23 Est GFR (Non-Af Amer) 19 Random Glucose 98 Lactic Acid Calcium 9.5 Phosphorus 3.3 Magnesium 1.9 Total Bilirubin 0.8 AST 17 ALT 7 L Alkaline Phosphatase 84 Total Protein 9.9 H Albumin 4.2 Globulin 5.8 H Albumin/Globulin Ratio 0.7 L 06/26/18 06/26/18 06/26/18 03:51 08:05 08:05 WBC 6.4 RBC 3.22 L Hgb 10.2 L Hct 32.8 L MCV 101.9 H D MCH 31.7 H MCHC 31.1 L RDW 16.4 H Plt Count 234 MPV 9.4 Neut % (Auto) 74.1 Lymph % (Auto) 12.5 L [place] % (Auto) 10.6 H Eos % (Auto) 2.1 Baso % (Auto) 0.7 Neut # (Auto) 4.7 Lymph # (Auto) 0.8 L [place] # (Auto) 0.7 Eos # (Auto) 0.1 Baso # (Auto) 0.0 Puncture Site pCO2 pO2 HCO3 ABG pH ABG Total CO2 ABG O2 Saturation ABG Base Excess ABG Hemoglobin ABG Carboxyhemoglobin POC ABG HHb (Measured) ABG Methemoglobin Yang Test A-a O2 Difference Respiratory Index Hgb O2 Saturation FiO2 Crit Value Called To Crit Value Called By Crit Value Read Back Blood Gas Notified Time Sodium 138 Potassium 4.5 Chloride 98 Carbon Dioxide 28 Anion Gap 17 BUN 27 H Creatinine 5.3 H Est GFR ( Amer) 10 Est GFR (Non-Af Amer) 9 Random Glucose 86 Lactic Acid 0.9 Calcium 10.4 Phosphorus 6.0 H Magnesium 2.0 Total Bilirubin 1.3 AST 30 ALT < 6 L Alkaline Phosphatase 70 Total Protein 9.7 H Albumin 4.2 Globulin 5.5 H Albumin/Globulin Ratio 0.8 L Assessment & Plan - Assessment and Plan (Free Text) Assessment: recurrent bilateral pleural effusions recent VAT biopsy dyspnea tachycardia HTN hypercalcemia f/u VAT biopsy for possible thoracentesis or chest tube tomorrow repeat hypercalcmia w/o HD tomorrow due to need for CT
--- NOTE | 2018-06-26 17:11 | CP.PCM.CON ---
History of Present Illness - History of Present Illness History of Present Illness: readmitted for recurrent pleural effusion was here last week with pleural effusion r/o TB has + Quanteferon gold had neg AFB smears x 3 Underwent VATS with pleural Bx which showed non-caseating granulomas, exudative pleural fluid Was placed on RIPE rx for TB and discharged home pending special stains for TB - special stains were neg for TB and Fungus would therefor cont HAART rx for 6 weeks until cultures are finalized YELITZA levels have been sent for possible sarcoid empiric IV antibiotics have been started 47 y/o female with HTN and ESRD. PMH- nephrosclerosis FH- no CKD PSH- PD cath and removal, AV fistula, permcath Social- no ETOH, smoking, illicits Review of Systems - Constitutional Constitutional: As Per HPI, Chills, Fatigue, Weakness - EENT Eyes: absent: As Per HPI, Blind Spots, Blurred Vision, Change in Vision, Decreased Night Vision, Diplopia, Discharge, Dry Eye, Exophthalmos, Floaters, Irritation, Itchy Eyes, Loss of Peripheral Vision, Pain, Photophobia, Requires Corrective Lenses, Sees Flashes, Spots in Vision, Tunnel Vision, Other Visual Disturbances, Loss of Vision, Other Ears: absent: As Per HPI, Decreased Hearing, Ear Discharge, Ear Pain, Tinnitus, Abnormal Hearing, Disequilibrium, Dizziness, Other Nose/Mouth/Throat: absent: As Per HPI, Epistaxis, Nasal Congestion, Nasal Discharge, Nasal Obstruction, Nasal Trauma, Nose Pain, Post Nasal Drip, Sinus Pain, Sinus Pressure, Bleeding Gums, Change in Voice, Dental Pain, Dry Mouth, Dysphagia, Halitosis, Hoarsness, Lip Swelling, Mouth Lesions, Mouth Pain, Odynophagia, Sore Throat, Throat Swelling, Tongue Swelling, Facial Pain, Neck Pain, Neck Mass, Other - Cardiovascular Cardiovascular: Dyspnea on Exertion - Respiratory Respiratory: Cough, Pain with Coughing - Gastrointestinal Gastrointestinal: absent: As Per HPI, Abdominal Pain, Belching, Bloating, Change in Bowel Habits, Change in Stool Character, Coffee Ground Emesis, Constipation, Cramping, Diarrhea, Dyspepsia, Dysphagia, Early Satiety, Excessive Flatus, Fecal Incontinence, Heartburn, Hematemesis, Hematochezia, Loose Stools, Melena, Nausea, Odynophagia, Temesmus, Vomiting, Other Past Patient History - Infectious Disease Hx of Infectious Diseases: None - Tetanus Immunizations Tetanus Immunization: Unknown - Past Medical History & Family History Past Medical History?: Yes - Past Social History Smoking Status: Never Smoked - CARDIAC Hx Cardiac Disorders: Yes Hx Hypertension: Yes - PULMONARY Hx Respiratory Disorders: Yes Hx Asthma: Yes - NEUROLOGICAL Hx Neurological Disorder: No - HEENT Hx HEENT Problems: No - RENAL Hx Chronic Kidney Disease: Yes Hx Dialysis: Yes Type of Dialysis Access: rt. permacath Date of Last Dialysis Treatment: 06/23/18 Hx Kidney Stones: No Other/Comment: HD [facility] - ENDOCRINE/METABOLIC Hx Endocrine Disorders: No - HEMATOLOGICAL/ONCOLOGICAL Hx Blood Disorders: Yes Hx Blood Transfusions: Yes () - INTEGUMENTARY Hx Dermatological Problems: No - MUSCULOSKELETAL/RHEUMATOLOGICAL Hx Musculoskeletal Disorders: No Hx Falls: No - GASTROINTESTINAL Hx Gastrointestinal Disorders: No - GENITOURINARY/GYNECOLOGICAL Hx Genitourinary Disorders: No - PSYCHIATRIC Hx Psychophysiologic Disorder: No Hx Substance Use: No - SURGICAL HISTORY Hx Surgeries: Yes Other/Comment: left lung drain - ANESTHESIA Hx Anesthesia: No Hx Anesthesia Reactions: No Meds Allergies/Adverse Reactions: Allergies Allergy/AdvReac Type Severity Reaction Status Date / Time No Known Allergies Allergy Verified 06/25/18 11:22 - Medications Medications: Current Medications Epoetin Milton (Procrit) 10,000 unit IV TTS [facility] Last Admin: 06/25/18 19:19 Dose: 10,000 unit Heparin Sodium (Porcine) (Heparin) 5,000 units SC Q12 [facility] Last Admin: 06/26/18 09:44 Dose: 5,000 units Isoniazid (Niazid) 300 mg PO 0200 [facility]; Protocol Pantoprazole Sodium (Protonix Ec Tab) 40 mg PO DAILY [facility] Last Admin: 06/26/18 09:43 Dose: 40 mg Rifampin (Rifampin Cap) 600 mg PO 0200 [facility]; Protocol Sevelamer Carbonate (Renvela) 800 mg PO TIDCC [facility] Last Admin: 06/26/18 16:29 Dose: 800 mg Physical Exam - Constitutional Appears: No Acute Distress, Cachectic, Chronically Ill - Head Exam Head Exam: ATRAUMATIC, NORMAL INSPECTION, NORMOCEPHALIC - Eye Exam Eye Exam: EOMI, Normal appearance, PERRL Pupil Exam: NORMAL ACCOMODATION, PERRL - ENT Exam ENT Exam: Mucous Membranes Moist, Normal Exam - Neck Exam Neck exam: Positive for: Normal Inspection. Negative for: Lymphadenopathy - Respiratory Exam Respiratory Exam: Decreased Breath Sounds, Prolonged Expiratory Phase, Rales - Cardiovascular Exam Cardiovascular Exam: REGULAR RHYTHM - GI/Abdominal Exam GI & Abdominal Exam: Normal Bowel Sounds, Soft. absent: Tenderness - Rectal Exam Rectal Exam: Deferred - Exam Exam: NORMAL INSPECTION - Extremities Exam Extremities exam: Positive for: normal inspection - Back Exam Back exam: NORMAL INSPECTION - Neurological Exam Neurological exam: Alert, CN II-XII Intact, Normal Gait, Oriented x3, Reflexes Normal - Psychiatric Exam Psychiatric exam: Normal Affect, Normal Mood - Skin Skin Exam: Dry, Intact, Normal Color, Warm Results - Vital Signs Recent Vital Signs: Last Vital Signs Temp 99.3 F 06/26/18 16:00 Pulse 121 H 06/26/18 16:19 Resp 42 H 06/26/18 16:19 BP 124/79 06/26/18 16:19 Pulse Ox 100 06/26/18 16:19 - Labs Result Diagrams: 06/27/18 12:00 06/27/18 06:28 Labs: Laboratory Results - last 24 hr 06/25/18 06/25/18 06/25/18 20:49 20:49 23:00 WBC 6.3 RBC 3.13 L Hgb 9.6 L Hct 30.7 L MCV 97.9 MCH 30.5 MCHC 31.2 L RDW 15.9 H Plt Count 324 MPV 8.4 Neut % (Auto) Lymph % (Auto) Branch % (Auto) Eos % (Auto) Baso % (Auto) Neut # (Auto) Lymph # (Auto) Branch # (Auto) Eos # (Auto) Baso # (Auto) Puncture Site Rba pCO2 68 H pO2 34 L* HCO3 32.3 H ABG pH 7.35 ABG Total CO2 39.6 H ABG O2 Saturation 62.2 L ABG Base Excess 10.2 H ABG Hemoglobin 8.9 L ABG Carboxyhemoglobin 1.9 H POC ABG HHb (Measured) 36.8 H ABG Methemoglobin 0.8 Yang Test Pos A-a O2 Difference 138.0 Respiratory Index 4.1 Hgb O2 Saturation 60.5 L FiO2 36.0 Crit Value Called To Dr briones Crit Value Called By [facility] Crit Value Read Back Y Blood Gas Notified Time 2312 Sodium 139 Potassium 3.1 L Chloride 96 L Carbon Dioxide 32 H Anion Gap 15 BUN 14 Creatinine 2.7 H Est GFR ( Amer) 23 Est GFR (Non-Af Amer) 19 Random Glucose 98 Lactic Acid Calcium 9.5 Phosphorus 3.3 Magnesium 1.9 Total Bilirubin 0.8 AST 17 ALT 7 L Alkaline Phosphatase 84 Total Protein 9.9 H Albumin 4.2 Globulin 5.8 H Albumin/Globulin Ratio 0.7 L 06/26/18 06/26/18 06/26/18 03:51 08:05 08:05 WBC 6.4 RBC 3.22 L Hgb 10.2 L Hct 32.8 L MCV 101.9 H D MCH 31.7 H MCHC 31.1 L RDW 16.4 H Plt Count 234 MPV 9.4 Neut % (Auto) 74.1 Lymph % (Auto) 12.5 L Branch % (Auto) 10.6 H Eos % (Auto) 2.1 Baso % (Auto) 0.7 Neut # (Auto) 4.7 Lymph # (Auto) 0.8 L Branch # (Auto) 0.7 Eos # (Auto) 0.1 Baso # (Auto) 0.0 Puncture Site pCO2 pO2 HCO3 ABG pH ABG Total CO2 ABG O2 Saturation ABG Base Excess ABG Hemoglobin ABG Carboxyhemoglobin POC ABG HHb (Measured) ABG Methemoglobin Yang Test A-a O2 Difference Respiratory Index Hgb O2 Saturation FiO2 Crit Value Called To Crit Value Called By Crit Value Read Back Blood Gas Notified Time Sodium 138 Potassium 4.5 Chloride 98 Carbon Dioxide 28 Anion Gap 17 BUN 27 H Creatinine 5.3 H Est GFR ( Amer) 10 Est GFR (Non-Af Amer) 9 Random Glucose 86 Lactic Acid 0.9 Calcium 10.4 Phosphorus 6.0 H Magnesium 2.0 Total Bilirubin 1.3 AST 30 ALT < 6 L Alkaline Phosphatase 70 Total Protein 9.7 H Albumin 4.2 Globulin 5.5 H Albumin/Globulin Ratio 0.8 L Assessment & Plan (1) ESRD (end stage renal disease) Status: Acute (2) Pleural effusion Status: Acute (3) SOB (shortness of breath) Status: Acute - Assessment and Plan (Free Text) Assessment: readmitted for recurrent pleural effusion was here last week with pleural effusion r/o TB has + Quanteferon gold had neg AFB smears x 3 Underwent VATS with pleural Bx which showed non-caseating granulomas, exudative pleural fluid Was placed on RIPE rx for TB and discharged home pending special stains for TB - special stains were neg for TB and Fungus would therefor cont HAART rx for 6 weeks until cultures are finalized YELITZA levels have been sent for possible sarcoid empiric IV antibiotics have been started
--- NOTE | 2018-06-26 18:10 | CP.PCM.CON ---
History of Present Illness - History of Present Illness History of Present Illness: Reason for consultation: Pleural effusion 47-year-old female with end-stage renal disease on hemodialysis, pleural effusion status post right thoracentesis and left pleural biopsy and chest tube drainage during recent admission and discharged 6 days ago. During last admission 3 AFB were negative in the sputum and also pleural fluid and pleural biopsy negative for AFB but pathology is positive for noncaseating granuloma. Patient admitted with worsening shortness of breath and fever. Chest x-ray consistent with large right pleural effusion. Review of Systems - Review of Systems All systems: reviewed and no additional remarkable complaints except (Shortness of breath and fever) Past Patient History - Infectious Disease Hx of Infectious Diseases: None - Tetanus Immunizations Tetanus Immunization: Unknown - Past Medical History & Family History Past Medical History?: Yes - Past Social History Smoking Status: Never Smoked - CARDIAC Hx Hypertension: Yes - PULMONARY Hx Respiratory Disorders: Yes Hx Asthma: Yes - NEUROLOGICAL Hx Neurological Disorder: No - HEENT Hx HEENT Problems: No - RENAL Hx Chronic Kidney Disease: No Hx Kidney Stones: No - ENDOCRINE/METABOLIC Hx Endocrine Disorders: No - HEMATOLOGICAL/ONCOLOGICAL Hx Blood Disorders: Yes Hx Blood Transfusions: Yes () - INTEGUMENTARY Hx Dermatological Problems: No - MUSCULOSKELETAL/RHEUMATOLOGICAL Hx Musculoskeletal Disorders: No Hx Falls: No - GASTROINTESTINAL Hx Gastrointestinal Disorders: No - GENITOURINARY/GYNECOLOGICAL Hx Genitourinary Disorders: No - PSYCHIATRIC Hx Substance Use: No - SURGICAL HISTORY Hx Surgeries: Yes Other/Comment: left lung drain - ANESTHESIA Hx Anesthesia: No Hx Anesthesia Reactions: No Meds Allergies/Adverse Reactions: Allergies Allergy/AdvReac Type Severity Reaction Status Date / Time No Known Allergies Allergy Verified 06/25/18 11:22 - Medications Medications: Current Medications Epoetin Milton (Procrit) 10,000 unit IV TTS [facility] Last Admin: 06/25/18 19:19 Dose: 10,000 unit Heparin Sodium (Porcine) (Heparin) 5,000 units SC Q12 [facility] Last Admin: 06/26/18 09:44 Dose: 5,000 units Isoniazid (Niazid) 300 mg PO 0200 [facility]; Protocol Pantoprazole Sodium (Protonix Ec Tab) 40 mg PO DAILY [facility] Last Admin: 06/26/18 09:43 Dose: 40 mg Rifampin (Rifampin Cap) 600 mg PO 0200 [facility]; Protocol Sevelamer Carbonate (Renvela) 800 mg PO TIDCC [facility] Last Admin: 06/26/18 16:29 Dose: 800 mg Physical Exam - Head Exam Head Exam: ATRAUMATIC, NORMOCEPHALIC - ENT Exam ENT Exam: Mucous Membranes Moist - Neck Exam Neck exam: Positive for: Normal Inspection - Respiratory Exam Respiratory Exam: Decreased Breath Sounds - Cardiovascular Exam Cardiovascular Exam: REGULAR RHYTHM - GI/Abdominal Exam GI & Abdominal Exam: Normal Bowel Sounds, Soft Results - Vital Signs Recent Vital Signs: Last Vital Signs Temp 99.3 F 06/26/18 16:00 Pulse 121 H 06/26/18 17:29 Resp 19 06/26/18 17:29 BP 130/79 06/26/18 17:29 Pulse Ox 96 06/26/18 17:58 - Labs Result Diagrams: 06/26/18 08:05 06/26/18 08:05 Labs: Laboratory Results - last 24 hr 06/25/18 06/25/18 06/25/18 20:49 20:49 23:00 WBC 6.3 RBC 3.13 L Hgb 9.6 L Hct 30.7 L MCV 97.9 MCH 30.5 MCHC 31.2 L RDW 15.9 H Plt Count 324 MPV 8.4 Neut % (Auto) Lymph % (Auto) Craven % (Auto) Eos % (Auto) Baso % (Auto) Neut # (Auto) Lymph # (Auto) [place]ven # (Auto) Eos # (Auto) Baso # (Auto) Puncture Site Rba pCO2 68 H pO2 34 L* HCO3 32.3 H ABG pH 7.35 ABG Total CO2 39.6 H ABG O2 Saturation 62.2 L ABG Base Excess 10.2 H ABG Hemoglobin 8.9 L ABG Carboxyhemoglobin 1.9 H POC ABG HHb (Measured) 36.8 H ABG Methemoglobin 0.8 Yang Test Pos A-a O2 Difference 138.0 Respiratory Index 4.1 Hgb O2 Saturation 60.5 L FiO2 36.0 Crit Value Called To Dr briones Crit Value Called By Lavelle cuong Crit Value Read Back Y Blood Gas Notified Time 2316 Sodium 139 Potassium 3.1 L Chloride 96 L Carbon Dioxide 32 H Anion Gap 15 BUN 14 Creatinine 2.7 H Est GFR ( Amer) 23 Est GFR (Non-Af Amer) 19 Random Glucose 98 Lactic Acid Calcium 9.5 Phosphorus 3.3 Magnesium 1.9 Total Bilirubin 0.8 AST 17 ALT 7 L Alkaline Phosphatase 84 Total Protein 9.9 H Albumin 4.2 Globulin 5.8 H Albumin/Globulin Ratio 0.7 L 06/26/18 06/26/18 06/26/18 03:51 08:05 08:05 WBC 6.4 RBC 3.22 L Hgb 10.2 L Hct 32.8 L MCV 101.9 H D MCH 31.7 H MCHC 31.1 L RDW 16.4 H Plt Count 234 MPV 9.4 Neut % (Auto) 74.1 Lymph % (Auto) 12.5 L Craven % (Auto) 10.6 H Eos % (Auto) 2.1 Baso % (Auto) 0.7 Neut # (Auto) 4.7 Lymph # (Auto) 0.8 L Craven # (Auto) 0.7 Eos # (Auto) 0.1 Baso # (Auto) 0.0 Puncture Site pCO2 pO2 HCO3 ABG pH ABG Total CO2 ABG O2 Saturation ABG Base Excess ABG Hemoglobin ABG Carboxyhemoglobin POC ABG HHb (Measured) ABG Methemoglobin Yang Test A-a O2 Difference Respiratory Index Hgb O2 Saturation FiO2 Crit Value Called To Crit Value Called By Crit Value Read Back Blood Gas Notified Time Sodium 138 Potassium 4.5 Chloride 98 Carbon Dioxide 28 Anion Gap 17 BUN 27 H Creatinine 5.3 H Est GFR ( Amer) 10 Est GFR (Non-Af Amer) 9 Random Glucose 86 Lactic Acid 0.9 Calcium 10.4 Phosphorus 6.0 H Magnesium 2.0 Total Bilirubin 1.3 AST 30 ALT < 6 L Alkaline Phosphatase 70 Total Protein 9.7 H Albumin 4.2 Globulin 5.5 H Albumin/Globulin Ratio 0.8 L Assessment & Plan (1) Pleural effusion Assessment and Plan: Thoracentesis or chest tube drainage of right pleural effusion Will check adenosine deaminase level in the pleural fluid Patient on 2 anti-TB medication? Continue ICU observation Continue hemodialysis Status: Acute (2) ESRD (end stage renal disease) Status: Acute
--- NOTE | 2018-06-26 18:27 | CT ---
Date of service: 06/26/2018 PROCEDURE: CT Chest with contrast HISTORY: pleural effusion eval COMPARISON: Comparison is made to the previous study dated 06/13/2018 TECHNIQUE: Contiguous axial images were obtained through the chest with intravenous contrast enhancement. Sagittal and coronal reconstructions were performed. IV contrast: 100 mL of Visipaque 320 intravenously. Radiation dose: Total exam DLP = 319.94 mGy-cm. This CT exam was performed using one or more of the following dose reduction techniques: Automated exposure control, adjustment of the mA and/or kV according to patient size, and/or use of iterative reconstruction technique. FINDINGS: LUNGS: There is complete collapse of the right lower lobe and partial to complete collapse of the right middle lobe. There is also partial collapse of the right upper lobe due to large pleural effusion. Linear opacities noted at the left lung likely is scar tissue or atelectasis. MEDIASTINUM: Unremarkable thoracic aorta. No aneurysm or dissection. The heart is mildly enlarged. Main pulmonary artery is mildly enlarged. Again noted are mildly enlarged mediastinal lymph nodes. Small foci of atherosclerotic calcification are again noted. PLEURA: There is large size right pleural effusion. There is small left pleural effusion. BONES: No fracture. No destructive lesion. UPPER ABDOMEN: Grossly unremarkable. OTHER FINDINGS: None. IMPRESSION: Large right-sided pleural effusion again noted. Small left pleural effusion. Almost complete collapse of the right lung lower lobe and middle lobe. Partial collapse of the right lung upper lobe. Mild cardiomegaly.
--- NOTE | 2018-06-26 18:56 | CP.PCM.HP ---
History of Present Illness - History of Present Illness History of Present Illness: CC: SOB few days HPI: 47 y/o female seen in ER c/o SOB few days. Chest X-ray showed large right pleural effusion. Discharge last week s/p chest tube insertion and pleural biopsy. Findings inconclusive Present on Admission - Present on Admission Any Indicators Present on Admission: Yes History of DVT/PE: No History of Uncontrolled Diabetes: No Urinary Catheter: No Decubitus Ulcer Present: No Review of Systems - Review of Systems All systems: reviewed and no additional remarkable complaints except (SOB, weakness, no fever, no loss of weight) Past Patient History - Infectious Disease Hx of Infectious Diseases: None - Tetanus Immunizations Tetanus Immunization: Unknown - Past Medical History & Family History Past Medical History?: Yes - Past Social History Smoking Status: Never Smoked - CARDIAC Hx Hypertension: Yes - PULMONARY Hx Respiratory Disorders: Yes Hx Asthma: Yes - NEUROLOGICAL Hx Neurological Disorder: No - HEENT Hx HEENT Problems: No - RENAL Hx Chronic Kidney Disease: No Hx Kidney Stones: No - ENDOCRINE/METABOLIC Hx Endocrine Disorders: No - HEMATOLOGICAL/ONCOLOGICAL Hx Blood Disorders: Yes Hx Blood Transfusions: Yes () - INTEGUMENTARY Hx Dermatological Problems: No - MUSCULOSKELETAL/RHEUMATOLOGICAL Hx Musculoskeletal Disorders: No Hx Falls: No - GASTROINTESTINAL Hx Gastrointestinal Disorders: No - GENITOURINARY/GYNECOLOGICAL Hx Genitourinary Disorders: No - PSYCHIATRIC Hx Substance Use: No - SURGICAL HISTORY Hx Surgeries: Yes Other/Comment: left lung drain - ANESTHESIA Hx Anesthesia: No Hx Anesthesia Reactions: No Meds Allergies/Adverse Reactions: Allergies Allergy/AdvReac Type Severity Reaction Status Date / Time No Known Allergies Allergy Verified 06/25/18 11:22 Physical Exam - Constitutional Appears: Chronically Ill - Head Exam Head Exam: NORMAL INSPECTION - Eye Exam Eye Exam: Normal appearance - ENT Exam ENT Exam: Normal Exam - Neck Exam Neck exam: Positive for: Normal Inspection - Respiratory Exam Respiratory Exam: Decreased Breath Sounds - Cardiovascular Exam Cardiovascular Exam: Tachycardia - GI/Abdominal Exam GI & Abdominal Exam: Soft - Rectal Exam Rectal Exam: Deferred - Extremities Exam Extremities exam: Negative for: pedal edema Results - Vital Signs Recent Vital Signs: Last Vital Signs Temp 99.3 F 06/26/18 16:00 Pulse 124 H 06/26/18 18:19 Resp 20 06/26/18 18:19 BP 124/76 06/26/18 18:19 Pulse Ox 96 02/17/19 18:24 - Labs Result Diagrams: 06/27/18 06:28 06/27/18 06:28 Labs: Laboratory Results - last 24 hr 06/25/18 06/25/18 06/25/18 20:49 20:49 23:00 WBC 6.3 RBC 3.13 L Hgb 9.6 L Hct 30.7 L MCV 97.9 MCH 30.5 MCHC 31.2 L RDW 15.9 H Plt Count 324 MPV 8.4 Neut % (Auto) Lymph % (Auto) King % (Auto) Eos % (Auto) Baso % (Auto) Neut # (Auto) Lymph # (Auto) King # (Auto) Eos # (Auto) Baso # (Auto) Puncture Site Rba pCO2 68 H pO2 34 L* HCO3 32.3 H ABG pH 7.35 ABG Total CO2 39.6 H ABG O2 Saturation 62.2 L ABG Base Excess 10.2 H ABG Hemoglobin 8.9 L ABG Carboxyhemoglobin 1.9 H POC ABG HHb (Measured) 36.8 H ABG Methemoglobin 0.8 Yang Test Pos A-a O2 Difference 138.0 Respiratory Index 4.1 Hgb O2 Saturation 60.5 L FiO2 36.0 Crit Value Called To Dr briones Crit Value Called By [facility] Crit Value Read Back Y Blood Gas Notified Time 2312 Sodium 139 Potassium 3.1 L Chloride 96 L Carbon Dioxide 32 H Anion Gap 15 BUN 14 Creatinine 2.7 H Est GFR ( Amer) 23 Est GFR (Non-Af Amer) 19 Random Glucose 98 Lactic Acid Calcium 9.5 Phosphorus 3.3 Magnesium 1.9 Total Bilirubin 0.8 AST 17 ALT 7 L Alkaline Phosphatase 84 Total Protein 9.9 H Albumin 4.2 Globulin 5.8 H Albumin/Globulin Ratio 0.7 L 06/26/18 06/26/18 06/26/18 03:51 08:05 08:05 WBC 6.4 RBC 3.22 L Hgb 10.2 L Hct 32.8 L MCV 101.9 H D MCH 31.7 H MCHC 31.1 L RDW 16.4 H Plt Count 234 MPV 9.4 Neut % (Auto) 74.1 Lymph % (Auto) 12.5 L King % (Auto) 10.6 H Eos % (Auto) 2.1 Baso % (Auto) 0.7 Neut # (Auto) 4.7 Lymph # (Auto) 0.8 L King # (Auto) 0.7 Eos # (Auto) 0.1 Baso # (Auto) 0.0 Puncture Site pCO2 pO2 HCO3 ABG pH ABG Total CO2 ABG O2 Saturation ABG Base Excess ABG Hemoglobin ABG Carboxyhemoglobin POC ABG HHb (Measured) ABG Methemoglobin Yang Test A-a O2 Difference Respiratory Index Hgb O2 Saturation FiO2 Crit Value Called To Crit Value Called By Crit Value Read Back Blood Gas Notified Time Sodium 138 Potassium 4.5 Chloride 98 Carbon Dioxide 28 Anion Gap 17 BUN 27 H Creatinine 5.3 H Est GFR ( Amer) 10 Est GFR (Non-Af Amer) 9 Random Glucose 86 Lactic Acid 0.9 Calcium 10.4 Phosphorus 6.0 H Magnesium 2.0 Total Bilirubin 1.3 AST 30 ALT < 6 L Alkaline Phosphatase 70 Total Protein 9.7 H Albumin 4.2 Globulin 5.5 H Albumin/Globulin Ratio 0.8 L Assessment & Plan (1) Pleural effusion Status: Acute (2) Tachycardia Status: Acute (3) ESRD (end stage renal disease) on dialysis Status: Chronic (4) HTN (hypertension) Status: Chronic - Assessment and Plan (Free Text) Assessment: A/p: Seen in ICU. Continue medications - Date & Time Date: 06/26/18 Time: 18:59
--- NOTE | 2018-06-26 19:31 | CP.PCM.PN ---
Subjective - Date & Time of Evaluation Date of Evaluation: 06/26/18 Time of Evaluation: 19:21 - Subjective Subjective: Patient remains SOB and tachycardic, but maintained BP, not febrile since this am. Discussed with CT surgery, recommenced CT chest with iv contrast which showed, large right and small left effusion with complete atelectesis of the right lower lobe. IR consult requested, patient seen by pulmonary, ID and nephrology, will discuss with ID with rationale for INH and rifampin. Case d/w Dr. Allen as well agrees with IR drainage. Objective - Vital Signs/Intake and Output Vital Signs (last 24 hours): Temp Pulse Resp BP Pulse Ox 99.3 F 124 H 20 124/76 96 06/26/18 16:00 06/26/18 18:19 06/26/18 18:19 06/26/18 18:19 06/26/18 18:24 Intake and Output: 06/26/18 06/27/18 18:59 06:59 Intake Total 250 50 Balance 250 50 - Medications Medications: Current Medications Epoetin Milton (Procrit) 10,000 unit IV TTS [facility] Last Admin: 06/25/18 19:19 Dose: 10,000 unit Heparin Sodium (Porcine) (Heparin) 5,000 units SC Q12 [facility] Last Admin: 06/26/18 09:44 Dose: 5,000 units Isoniazid (Niazid) 300 mg PO 0200 [facility]; Protocol Pantoprazole Sodium (Protonix Ec Tab) 40 mg PO DAILY [facility] Last Admin: 06/26/18 09:43 Dose: 40 mg Rifampin (Rifampin Cap) 600 mg PO 0200 [facility]; Protocol Sevelamer Carbonate (Renvela) 800 mg PO TIDCC [facility] Last Admin: 06/26/18 16:29 Dose: 800 mg - Labs Labs: 06/26/18 08:05 06/26/18 08:05 PT 11.8 SECONDS (9.7-12.2) 06/25/18 12:13 INR 1.1 06/25/18 12:13 APTT 88 SECONDS (21-34) H 06/25/18 12:13 - Additional Findings Additional findings: * HEENT GOMEZ * Neck Supple * Chest poor to no sound on right side in lower chest, HD cath on right side * CVS regular tahycardia * PA soft * Ext no edema * Skin normal turgor * [employer] awake oriented x3 no fnd. Assessment and Plan - Assessment and Plan (Free Text) Assessment: * Right large effusion with atelectesis of rll, small left effusion, would request IR drainage, npo past midnight * Secondary tachpnea, increased HR, sob, co2 retention, o2 requirement about 4lit * ESRD on HD * Currently on INH, refampin * Fever spike last night hence on vanco and amikacin * HD as scheduled * See orders for detail.
[2018-06-27 06:41] LABS: BASO % 0.8 % (0.0-2.0); EOS # 0.1 K/uL (0.0-0.7); EOS % 2.5 % (0.0-4.0); LYMPH # 0.8 K/uL (1.0-4.3); LYMPH % 13.7 % (20.0-40.0); MEAN CELL VOLUME 99.8 fL (81.0-99.0); MEAN CORPUSCULAR HGB CONC 31.1 g/dL (33.0-37.0); MEAN PLATELET VOLUME 8.7 fL (7.2-11.7); MONO # 0.7 K/uL (0.0-0.8); MONO % 11.1 % (0.0-10.0); NEUT # 4.3 K/uL (1.8-7.0); NEUT % 71.9 % (50.0-75.0); NRBC % 0.1 % (0.0-2.0); RBC 2.5 Mil/uL (3.80-5.20); RED CELL DISTRIBUTION WIDTH 16.1 % (11.5-14.5); WHITE BLOOD COUNT 5.9 K/uL (4.8-10.8)
[2018-06-27 06:53] LABS: ALB/GLOB RATIO 0.8 (1.0-2.1); ALBUMIN 3.5 g/dL (3.5-5.0); ALT/SGPT < 6 U/L (9-52); AST/SGOT 17 U/L (14-36); BLOOD UREA NITROGEN 43 mg/dL (7-17); CALCIUM 10.2 mg/dl (8.6-10.4); GFR NON-AFRICAN AMERICAN 6
[2018-06-27 07:22] LABS: HEMOGLOBIN 7.7 g/dL (11.0-16.0)
--- NOTE | 2018-06-27 08:14 | CP.PCM.PN ---
Subjective - Date & Time of Evaluation Date of Evaluation: 06/27/18 Time of Evaluation: 07:00 - Subjective Subjective: CARDIOTHORACIC PROGRESS NOTE FOR DR. MAO. Patient was seen and examined at bedside. Patient has been febrile overnight, Tmax 101.6. States shortness of breath has improved. Objective - Vital Signs/Intake and Output Vital Signs (last 24 hours): Temp Pulse Resp BP Pulse Ox 102.5 F H 125 H 24 146/81 99 06/27/18 07:42 06/27/18 07:19 06/27/18 07:19 06/27/18 07:19 06/27/18 07:19 Intake and Output: 06/27/18 06/27/18 06:59 18:59 Intake Total 150 0 Balance 150 0 - Medications Medications: Current Medications Acetaminophen (Tylenol 325mg Tab) 650 mg PO Q6 PRN PRN Reason: for fever Last Admin: 06/27/18 07:42 Dose: 650 mg Epoetin Milton (Procrit) 10,000 unit IV TTS [facility] Last Admin: 06/25/18 19:19 Dose: 10,000 unit Heparin Sodium (Porcine) (Heparin) 5,000 units SC Q12 [facility] Last Admin: 06/26/18 22:25 Dose: 5,000 units Isoniazid (Niazid) 300 mg PO 0200 [facility]; Protocol Last Admin: 06/27/18 02:14 Dose: 300 mg Pantoprazole Sodium (Protonix Ec Tab) 40 mg PO DAILY [facility] Last Admin: 06/26/18 09:43 Dose: 40 mg Rifampin (Rifampin Cap) 600 mg PO 0200 [facility]; Protocol Last Admin: 06/27/18 02:15 Dose: 600 mg Sevelamer Carbonate (Renvela) 800 mg PO TIDCC [facility] Last Admin: 06/27/18 07:57 Dose: 800 mg - Labs Labs: 06/27/18 06:28 06/27/18 06:28 PT 11.8 SECONDS (9.7-12.2) 06/25/18 12:13 INR 1.1 06/25/18 12:13 APTT 88 SECONDS (21-34) H 06/25/18 12:13 - Constitutional Appears: Non-toxic, No Acute Distress - Head Exam Head Exam: ATRAUMATIC, NORMOCEPHALIC - Eye Exam Eye Exam: Normal appearance - ENT Exam ENT Exam: Mucous Membranes Moist - Neck Exam Neck Exam: Full ROM - Respiratory Exam Respiratory Exam: NORMAL BREATHING PATTERN. absent: Respiratory Distress - Cardiovascular Exam Cardiovascular Exam: Tachycardia (130s) - Extremities Exam Extremities Exam: Normal Inspection - Neurological Exam Neurological Exam: Alert, Awake, Oriented x3 - Psychiatric Exam Psychiatric exam: Normal Affect - Skin Skin Exam: Dry, Normal Color, Warm Assessment and Plan - Assessment and Plan (Free Text) Assessment: 47F with left sided pleural effusions Plan: - CT chest with IV contrast: Large R sided pleural effusion. Small left pleural effusion. Almost complete collapse of the R lung lower lobe and middle lobe. Partial collapse of the right lung upper lobe. - Dialysis if needed - Drainage by Interventional Radiologist - F/u pleural fluid studies Further recs as per Dr. Dayanara Doyle, PGY1
--- NOTE | 2018-06-27 08:20 | CP.PCM.PN ---
Subjective - Date & Time of Evaluation Date of Evaluation: 06/27/18 Time of Evaluation: 08:10 - Subjective Subjective: Pt feels weak; Cough with clear mucus. No CP, still SOB, no appetite and fatigue. No N/V,no diarrhea; events noted c/o recurrent L plerual effusion (exudative ) Chest CT : lung collapse on left lower lobes (+) Quantiferon and Bx - more Sarcoidosis than TB Objective - Vital Signs/Intake and Output Vital Signs (last 24 hours): Temp Pulse Resp BP Pulse Ox 102.5 F H 125 H 24 146/81 99 06/27/18 07:42 06/27/18 07:19 06/27/18 07:19 06/27/18 07:19 06/27/18 07:19 Intake and Output: 06/27/18 06/27/18 06:59 18:59 Intake Total 150 0 Balance 150 0 - Medications Medications: Current Medications Acetaminophen (Tylenol 325mg Tab) 650 mg PO Q6 PRN PRN Reason: for fever Last Admin: 06/27/18 07:42 Dose: 650 mg Epoetin [place] (Procrit) 10,000 unit IV TTS [facility] Last Admin: 06/25/18 19:19 Dose: 10,000 unit Heparin Sodium (Porcine) (Heparin) 5,000 units SC Q12 [facility] Last Admin: 06/26/18 22:25 Dose: 5,000 units Isoniazid (Niazid) 300 mg PO 0200 [facility]; Protocol Last Admin: 06/27/18 02:14 Dose: 300 mg Pantoprazole Sodium (Protonix Ec Tab) 40 mg PO DAILY [facility] Last Admin: 06/26/18 09:43 Dose: 40 mg Pyridoxine HCl (Vitamin B6 50 Mg Tab) 50 mg PO DAILY [facility] Rifampin (Rifampin Cap) 600 mg PO 0200 [facility]; Protocol Last Admin: 06/27/18 02:15 Dose: 600 mg Sevelamer Carbonate (Renvela) 800 mg PO TIDCC [facility] Last Admin: 06/27/18 07:57 Dose: 800 mg - Labs Labs: 06/27/18 06:28 06/27/18 06:28 PT 11.8 SECONDS (9.7-12.2) 06/25/18 12:13 INR 1.1 06/25/18 12:13 APTT 88 SECONDS (21-34) H 06/25/18 12:13 - Constitutional Appears: No Acute Distress - Eye Exam Eye Exam: Normal appearance - ENT Exam ENT Exam: Mucous Membranes Moist - Neck Exam Neck Exam: Full ROM. absent: Lymphadenopathy - Respiratory Exam Respiratory Exam: Decreased Breath Sounds. absent: Rales, Rhonchi, Wheezes - Cardiovascular Exam Cardiovascular Exam: REGULAR RHYTHM, JVD, +S1, +S2, Murmur. absent: Gallop - GI/Abdominal Exam GI & Abdominal Exam: Soft. absent: Tenderness, Normal Bowel Sounds - Extremities Exam Extremities Exam: Calf Tenderness, Full ROM, Normal Capillary Refill. absent: Joint Swelling, Pedal Edema Assessment and Plan - Assessment and Plan (Free Text) Assessment: Left pleural effusion w/ lung collapse latent TB vs active ??HTN, ESRD For Pleural tap cont meds for now Considering steroid
[2018-06-27] MEDS: Pantoprazole 40 mg EC Tab PO SCH (09:03)
--- NOTE | 2018-06-27 10:41 | CP.PCM.PN ---
Subjective - Date & Time of Evaluation Date of Evaluation: 06/27/18 Time of Evaluation: 10:39 - Subjective Subjective: pt seen and examined remains SOB afebrile Had CT chest with contrast yesterday- results noted tachycardia on monitor dry cough afebrile ROS- as per HPI, other than that 10- point ROS negative Objective - Vital Signs/Intake and Output Vital Signs (last 24 hours): Temp Pulse Resp BP Pulse Ox 100.2 F H 117 H 22 103/66 99 06/27/18 08:42 06/27/18 10:19 06/27/18 10:19 06/27/18 10:19 06/27/18 10:19 Intake and Output: 06/27/18 06/27/18 06:59 18:59 Intake Total 150 0 Balance 150 0 - Medications Medications: Current Medications Acetaminophen (Tylenol 325mg Tab) 650 mg PO Q6 PRN PRN Reason: for fever Last Admin: 06/27/18 07:42 Dose: 650 mg Epoetin [place] (Procrit) 10,000 unit IV TTS [facility] Last Admin: 06/25/18 19:19 Dose: 10,000 unit Heparin Sodium (Porcine) (Heparin) 5,000 units SC Q12 [facility] Last Admin: 06/26/18 22:25 Dose: 5,000 units Isoniazid (Niazid) 300 mg PO 0200 [facility]; Protocol Last Admin: 06/27/18 02:14 Dose: 300 mg Pantoprazole Sodium (Protonix Ec Tab) 40 mg PO DAILY [facility] Last Admin: 06/27/18 09:03 Dose: 40 mg Pyridoxine HCl (Vitamin B6 50 Mg Tab) 50 mg PO DAILY [facility] Last Admin: 06/27/18 09:14 Dose: 50 mg Rifampin (Rifampin Cap) 600 mg PO 0200 [facility]; Protocol Last Admin: 06/27/18 02:15 Dose: 600 mg Sevelamer Carbonate (Renvela) 800 mg PO TIDCC [facility] Last Admin: 06/27/18 07:57 Dose: 800 mg - Labs Labs: 06/27/18 06:28 06/27/18 06:28 PT 11.8 SECONDS (9.7-12.2) 06/25/18 12:13 INR 1.1 06/25/18 12:13 APTT 88 SECONDS (21-34) H 06/25/18 12:13 - Constitutional Appears: Well, Non-toxic, Chronically Ill - Head Exam Head Exam: ATRAUMATIC, NORMOCEPHALIC - Eye Exam Eye Exam: EOMI, PERRL - ENT Exam ENT Exam: Mucous Membranes Moist - Neck Exam Neck Exam: Full ROM - Respiratory Exam Additional comments: clear left side, markedly reduced BS on right - Cardiovascular Exam Cardiovascular Exam: Tachycardia, +S1, +S2 - GI/Abdominal Exam GI & Abdominal Exam: Soft. absent: Distended, Tenderness - Extremities Exam Extremities Exam: Full ROM. absent: Pedal Edema - Neurological Exam Neurological Exam: Alert, Awake, Oriented x3 - Psychiatric Exam Psychiatric exam: Normal Affect, Normal Mood - Skin Skin Exam: Normal Color, Warm Assessment and Plan (1) ESRD (end stage renal disease) Status: Acute (2) Pleural effusion Status: Acute (3) SOB (shortness of breath) Status: Acute (4) Tachycardia Status: Acute (5) HTN (hypertension) Status: Chronic (6) Anemia Status: Chronic (7) Diabetes Status: Chronic - Assessment and Plan (Free Text) Plan: HD today post contrast exposure no UF as having thoracentesis today pt with good UOP transfuse one unit pRBC with HD drop in hb- ? no active bleeding noted on anti tb meds cultures negative for TB in past ID follow up
[2018-06-27 12:06] LABS: BASO # 0.1 K/uL (0.0-0.2); BASO % 1.1 % (0.0-2.0); EOS # 0.1 K/uL (0.0-0.7); EOS % 1.5 % (0.0-4.0); LYMPH # 0.8 K/uL (1.0-4.3); LYMPH % 14.8 % (20.0-40.0); MEAN CELL VOLUME 98.4 fL (81.0-99.0); MEAN CORPUSCULAR HEMOGLOBIN 31.6 pg (27.0-31.0); MEAN CORPUSCULAR HGB CONC 32.1 g/dL (33.0-37.0); MEAN PLATELET VOLUME 7.8 fL (7.2-11.7); MONO # 0.6 K/uL (0.0-0.8); MONO % 10.5 % (0.0-10.0); NEUT # 4.1 K/uL (1.8-7.0); NEUT % 72.1 % (50.0-75.0); RBC 2.52 Mil/uL (3.80-5.20); RED CELL DISTRIBUTION WIDTH 15.8 % (11.5-14.5); WHITE BLOOD COUNT 5.7 K/uL (4.8-10.8)
--- NOTE | 2018-06-27 12:20 | PCM.SURG1 ---
Surgeon's Initial Post Op Note - Surgeon's Notes Surgeon: Hiram Calderon MD Assistant Counsel: NONE Type of Anesthesia: Local Pre-Operative Diagnosis: Right pleural effusion, shortness of breath Operative Findings: US showed a large right pleural effusion Post-Operative Diagnosis: Right pleural effusion, shortness of breath Operation Performed: Placement of an 8.5 Fr right pleural drainage catheter. Specimen/Specimens Removed: none Estimated Blood Loss: EBL {In ML}: 0 Blood Products Given: N/A Drains Used: Chest Tubes Post-Op Condition: Fair Date of Surgery/Procedure: 06/27/18 Time of Surgery/Procedure: 12:10
--- NOTE | 2018-06-27 12:41 | CP.CCUPN ---
CCU Subjective - Physician Review Subjective (Free Text): Peggy Gipson DO, PGY-2: ICU Progress Note for Dr. Moore Patient was seen and examined at bedside. She reports that her dyspnea has diminished since placement of the chest tube. She reports that her sputum is clear. She denies any hemoptysis. She has also noted to have a fever. She will be getting dialysis today. Consent was obtained for 1 unit of PRBCs. 06/27/18 13:51 CCU Objective - Vital Signs / Intake & Output Vital Signs (Last 4 hours): Vital Signs Temp Pulse Resp BP Pulse Ox 06/27/18 11:19 109 H 19 104/62 100 06/27/18 10:19 117 H 22 103/66 99 06/27/18 09:19 121 H 15 115/67 97 06/27/18 08:42 100.2 F H Intake and Output (Last 8hrs): Intake & Output 06/26/18 06/27/18 06/27/18 22:59 06:59 14:59 Intake Total 200 0 0 Balance 200 0 0 Weight 95 lb Intake: Intake, IV Amount 0 0 0 Right Hand 0 0 0 Oral 200 0 Other: # Voids Urine, Voided 0 0 0 # Bowel Movements 0 0 0 - Physical Exam Head: Positive for: Atraumatic, Normocephalic Pupils: Positive for: PERRL Extroacular Muscles: Positive for: EOMI Conjunctiva: Positive for: Normal Mouth: Positive for: Moist Mucous Membranes. Negative for: Dry Neck: Positive for: Normal Range of Motion. Negative for: JVD Respiratory/Chest: Positive for: Other (right lung sounds diminshed) Cardiovascular: Positive for: Regular Rate and Rhythm, Normal S1, S2 Abdomen: Positive for: Normal Bowel Sounds. Negative for: Tenderness Upper Extremity: Positive for: Normal Inspection Lower Extremity: Positive for: Normal Inspection Neurological: Positive for: CN II-XII Intact, Speech Normal Skin: Positive for: Warm, Dry, Normal Color Psychiatric: Positive for: Alert, Oriented x 3, Normal Insight - Medications Active Medications: Active Medications Generic Name Dose Route Start Last Admin Trade Name Freq PRN Reason Stop Dose Admin Acetaminophen 650 mg 06/26/18 21:40 06/27/18 07:42 Tylenol 325mg Tab PO 650 mg Q6 PRN Administration for fever Epoetin Milton 10,000 unit 06/25/18 10:00 06/25/18 19:19 Procrit IV 10,000 unit TTS [facility] Administration Heparin Sodium (Porcine) 5,000 units 06/26/18 10:00 06/27/18 11:10 Heparin SC Not Given Q12 [facility] Isoniazid 300 mg 06/27/18 02:00 06/27/18 02:14 Niazid PO 300 mg 0200 [facility] Administration Protocol Pantoprazole Sodium 40 mg 06/26/18 10:00 06/27/18 09:03 Protonix Ec Tab PO 40 mg DAILY [facility] Administration Pyridoxine HCl 50 mg 06/27/18 10:00 06/27/18 09:14 Vitamin B6 50 Mg Tab PO 50 mg DAILY [facility] Administration Rifampin 600 mg 06/27/18 02:00 06/27/18 02:15 Rifampin Cap PO 600 mg 0200 [facility] Administration Protocol Sevelamer Carbonate 800 mg 06/26/18 17:00 06/27/18 11:23 Renvela PO 800 mg TIDCC [facility] Administration - Patient Studies Lab Studies: Microbiology Studies 06/25/18 12:13 Blood Culture - Preliminary Blood NO GROWTH AFTER 48 HOURS 06/26/18 03:51 MRSA Culture (Admit) - Final Naris MRSA NOT DETECTED 06/26/18 03:51 Blood Culture - Preliminary Blood NO GROWTH AFTER 24 HOURS 06/26/18 03:51 Blood Culture - Preliminary Blood NO GROWTH AFTER 24 HOURS 06/25/18 12:30 Blood Culture - Preliminary Blood NO GROWTH AFTER 24 HOURS Lab Studies 06/27/18 06/27/18 06/27/18 Range/Units 12:00 09:22 06:28 WBC 5.7 (4.8-10.8) K/uL RBC 2.52 L (3.80-5.20) Mil/uL Hgb 8.0 L (11.0-16.0) g/dL Hct 24.8 L (34.0-47.0) % MCV 98.4 (81.0-99.0) fL MCH 31.6 H (27.0-31.0) pg MCHC 32.1 L (33.0-37.0) g/dL RDW 15.8 H (11.5-14.5) % Plt Count 273 (130-400) K/uL MPV 7.8 (7.2-11.7) fL Neut % (Auto) 72.1 (50.0-75.0) % Lymph % (Auto) 14.8 L (20.0-40.0) % [place] % (Auto) 10.5 H (0.0-10.0) % Eos % (Auto) 1.5 (0.0-4.0) % Baso % (Auto) 1.1 (0.0-2.0) % Neut # (Auto) 4.1 (1.8-7.0) K/uL Lymph # (Auto) 0.8 L (1.0-4.3) K/uL [place] # (Auto) 0.6 (0.0-0.8) K/uL Eos # (Auto) 0.1 (0.0-0.7) K/uL Baso # (Auto) 0.1 (0.0-0.2) K/uL Sodium 132 (132-148) mmol/L Potassium 4.6 (3.6-5.2) mmol/L Chloride 91 L (98-107) mmol/L Carbon Dioxide 29 (22-30) mmol/L Anion Gap 16 (10-20) BUN 43 H (7-17) mg/dL Creatinine 7.3 H (0.7-1.2) mg/dL Est GFR ( Amer) 7 Est GFR (Non-Af Amer) 6 Random Glucose 95 (65-105) mg/dL Calcium 10.2 (8.6-10.4) mg/dl Phosphorus 5.7 H (2.5-4.5) mg/dL Magnesium 2.0 (1.6-2.3) mg/dL Total Bilirubin 1.0 (0.2-1.3) mg/dL AST 17 (14-36) U/L ALT < 6 L (9-52) U/L Alkaline Phosphatase 72 (38-126) U/L Total Protein 8.0 (6.3-8.3) g/dL Albumin 3.5 (3.5-5.0) g/dL Globulin 4.5 H (2.2-3.9) gm/dL Albumin/Globulin Ratio 0.8 L (1.0-2.1) 25-OH Vitamin D Total (30.0-100.0) NG/ML Blood Type O POSITIVE Antibody Screen Negative 06/27/18 06/27/18 Range/Units 06:28 06:28 WBC 5.9 (4.8-10.8) K/uL RBC 2.50 L (3.80-5.20) Mil/uL Hgb 7.7 L D (11.0-16.0) g/dL Hct 24.9 L (34.0-47.0) % MCV 99.8 H D (81.0-99.0) fL MCH 31.0 (27.0-31.0) pg MCHC 31.1 L (33.0-37.0) g/dL RDW 16.1 H (11.5-14.5) % Plt Count 279 (130-400) K/uL MPV 8.7 (7.2-11.7) fL Neut % (Auto) 71.9 (50.0-75.0) % Lymph % (Auto) 13.7 L (20.0-40.0) % [place] % (Auto) 11.1 H (0.0-10.0) % Eos % (Auto) 2.5 (0.0-4.0) % Baso % (Auto) 0.8 (0.0-2.0) % Neut # (Auto) 4.3 (1.8-7.0) K/uL Lymph # (Auto) 0.8 L (1.0-4.3) K/uL [place] # (Auto) 0.7 (0.0-0.8) K/uL Eos # (Auto) 0.1 (0.0-0.7) K/uL Baso # (Auto) 0.0 (0.0-0.2) K/uL Sodium (132-148) mmol/L Potassium (3.6-5.2) mmol/L Chloride (98-107) mmol/L Carbon Dioxide (22-30) mmol/L Anion Gap (10-20) BUN (7-17) mg/dL Creatinine (0.7-1.2) mg/dL Est GFR ( Amer) Est GFR (Non-Af Amer) Random Glucose (65-105) mg/dL Calcium (8.6-10.4) mg/dl Phosphorus (2.5-4.5) mg/dL Magnesium (1.6-2.3) mg/dL Total Bilirubin (0.2-1.3) mg/dL AST (14-36) U/L ALT (9-52) U/L Alkaline Phosphatase (38-126) U/L Total Protein (6.3-8.3) g/dL Albumin (3.5-5.0) g/dL Globulin (2.2-3.9) gm/dL Albumin/Globulin Ratio (1.0-2.1) 25-OH Vitamin D Total 14.1 L (30.0-100.0) NG/ML Blood Type Antibody Screen Laboratory Results - last 24 hr 06/27/18 06/27/18 06/27/18 06:28 06:28 06:28 WBC 5.9 RBC 2.50 L Hgb 7.7 L D Hct 24.9 L MCV 99.8 H D MCH 31.0 MCHC 31.1 L RDW 16.1 H Plt Count 279 MPV 8.7 Neut % (Auto) 71.9 Lymph % (Auto) 13.7 L [place] % (Auto) 11.1 H Eos % (Auto) 2.5 Baso % (Auto) 0.8 Neut # (Auto) 4.3 Lymph # (Auto) 0.8 L [place] # (Auto) 0.7 Eos # (Auto) 0.1 Baso # (Auto) 0.0 Sodium 132 Potassium 4.6 Chloride 91 L Carbon Dioxide 29 Anion Gap 16 BUN 43 H Creatinine 7.3 H Est GFR ( Amer) 7 Est GFR (Non-Af Amer) 6 Random Glucose 95 Calcium 10.2 Phosphorus 5.7 H Magnesium 2.0 Total Bilirubin 1.0 AST 17 ALT < 6 L Alkaline Phosphatase 72 Total Protein 8.0 Albumin 3.5 Globulin 4.5 H Albumin/Globulin Ratio 0.8 L 25-OH Vitamin D Total 14.1 L Blood Type Antibody Screen 06/27/18 06/27/18 09:22 12:00 WBC 5.7 RBC 2.52 L Hgb 8.0 L Hct 24.8 L MCV 98.4 MCH 31.6 H MCHC 32.1 L RDW 15.8 H Plt Count 273 MPV 7.8 Neut % (Auto) 72.1 Lymph % (Auto) 14.8 L [place] % (Auto) 10.5 H Eos % (Auto) 1.5 Baso % (Auto) 1.1 Neut # (Auto) 4.1 Lymph # (Auto) 0.8 L [place] # (Auto) 0.6 Eos # (Auto) 0.1 Baso # (Auto) 0.1 Sodium Potassium Chloride Carbon Dioxide Anion Gap BUN Creatinine Est GFR ( Amer) Est GFR (Non-Af Amer) Random Glucose Calcium Phosphorus Magnesium Total Bilirubin AST ALT Alkaline Phosphatase Total Protein Albumin Globulin Albumin/Globulin Ratio 25-OH Vitamin D Total Blood Type O POSITIVE Antibody Screen Negative Radiology Impressions: Radiology Impressions Chest X-Ray 06/26/18 01:31 IMPRESSION: Overall no significant interval changes noted since the prior study. Chest CT 06/26/18 14:01 IMPRESSION: Large right-sided pleural effusion again noted. Small left pleural effusion. Almost complete collapse of the right lung lower lobe and middle lobe. Partial collapse of the right lung upper lobe. Mild cardiomegaly. Fingerstick Blood Sugar Results: 96 Review of Systems - Review of Systems All systems: reviewed and no additional remarkable complaints except Critical Care Progress Note - Ventilator Checklist Head of Bed 30 Degrees: Yes PUD Prophalyxis: Yes DVT Prophylaxis: Yes - Prophylaxis GI Prophylaxis GI: PPI - Prophylaxis DVT Prophylaxis DVT: Heparin SQ - Nutrition Nutrition: Nutrition Category Date Time Status NPO Diet [DIET] Diets 06/26/18 Breakfast Active Assessment/Plan - Assessment and Plan (Free Text) Assessment: 47 year old female with a past medical history of ESRD on HD, history of TB (per ID note should be on rifampin, isoniazid, pyrazanadmie, and ethambutol) hypertension, persistent right sided pleural effusion who presented to [facility] for worsening shortness of breath and was found total collapse of right lung w. She was admitted to the floors however a rapid response was called given the patient went into a narrow complex tachycardia with the HR reported to be in the 180s. She was treated medically and was maintained on BIPAP intermittently. She underwent chest tube placement in the right hemithorax, received one unit of PRBCs, and underwent dialysis today. She feels much better. 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 We will continue vancomycin and amikacin. Blood cultures are negative thus far. Patient has been febrile. Neuro - HOB 30 degree - Neurochecks qshift Cardiology - Echocardiogram performed, interpretation pending - Dr. Ascencio consulted for episode of SVT; patient has not had anymore episodes Pulmonology - pig tail catheter inserted in placed in right lung - Pleural fluid sent for cell count, differential, culture, gram stain, acid fast staining, protein, LDH, ADA, amylase, lipase - 4% oxygen per NC with 100% SpO2 ID - Dr. Awan consulted - Recommends patient to continue RIPE for at least 6 weeks given the final cultures are not back - Continue broad spectrum antibiotics- Vancomycin 250 gram MWF and Amikacin - if patient's fever persist we will re-order sepsis work-up - Tylenol 650 q6h PRN for fever greater than 100.4 F Nephrology - Continue HD MWF, or as per Nephrology - Dose antibiotics renally and avoid nephrotoxins - Dr. Granados's group consulted - Sevelmer 800 mg TIDAC - Procrit 10,000 units TTS GI - Renal diet - protonix 40 mg DVT prophylaxis - Heparin 5000 units q12h Case reviewed and discussed with attending physician, Dr. Moore
[2018-06-27 13:26] LABS: BODY FLUID TYPE PLEURAL
[2018-06-27 13:53] LABS: BF GROSS APPEARANCE SL CLOUDY (CLEAR)
[2018-06-27 13:54] LABS: BODY FLUID MONO/MACROPHAGE 7 % (0-0); BODY FLUID TOTAL COUNT 100 (0-0)
--- NOTE | 2018-06-27 14:07 | CP.PCM.PN ---
Subjective - Date & Time of Evaluation Date of Evaluation: 06/27/18 Time of Evaluation: 08:00 - Subjective Subjective: afebrile awake alert chest tube in place pleural fluid again showing lymphocytic predominance readmitted for recurrent pleural effusion was here last week with pleural effusion r/o TB has + Quanteferon gold had neg AFB smears x 3 Underwent VATS with pleural Bx which showed non-caseating granulomas, exudative pleural fluid Was placed on RIPE rx for TB and discharged home pending special stains for TB - special stains were neg for TB and Fungus would therefore cont RIPE rx for 6 weeks until cultures are finalized YELITZA levels have been sent for possible sarcoid Lymphoma less likely empiric IV antibiotics have been started Objective - Vital Signs/Intake and Output Vital Signs (last 24 hours): Temp Pulse Resp BP Pulse Ox 98 F 118 H 20 152/81 H 98 06/27/18 12:00 06/27/18 14:02 06/27/18 13:19 06/27/18 13:19 06/27/18 12:00 Intake and Output: 06/27/18 06/27/18 06:59 18:59 Intake Total 150 0 Balance 150 0 - Medications Medications: Current Medications Acetaminophen (Tylenol 325mg Tab) 650 mg PO Q6 PRN PRN Reason: for fever Last Admin: 06/27/18 07:42 Dose: 650 mg Epoetin [place] (Procrit) 10,000 unit IV TTS [facility] Last Admin: 06/25/18 19:19 Dose: 10,000 unit Heparin Sodium (Porcine) (Heparin) 5,000 units SC Q12 [facility] Last Admin: 06/27/18 11:10 Dose: Not Given Isoniazid (Niazid) 300 mg PO 0200 [facility]; Protocol Last Admin: 06/27/18 02:14 Dose: 300 mg Pantoprazole Sodium (Protonix Ec Tab) 40 mg PO DAILY [facility] Last Admin: 06/27/18 09:03 Dose: 40 mg Pyridoxine HCl (Vitamin B6 50 Mg Tab) 50 mg PO DAILY [facility] Last Admin: 06/27/18 09:14 Dose: 50 mg Rifampin (Rifampin Cap) 600 mg PO 0200 [facility]; Protocol Last Admin: 06/27/18 02:15 Dose: 600 mg Sevelamer Carbonate (Renvela) 800 mg PO TIDCC [facility] Last Admin: 06/27/18 11:23 Dose: 800 mg - Labs Labs: 06/27/18 12:00 06/27/18 06:28 PT 11.8 SECONDS (9.7-12.2) 06/25/18 12:13 INR 1.1 06/25/18 12:13 APTT 88 SECONDS (21-34) H 06/25/18 12:13 - Constitutional Appears: Non-toxic, Cachectic, Chronically Ill - Head Exam Head Exam: NORMOCEPHALIC - Eye Exam Eye Exam: absent: Scleral icterus - ENT Exam ENT Exam: Mucous Membranes Dry - Neck Exam Neck Exam: absent: Lymphadenopathy - Respiratory Exam Respiratory Exam: Decreased Breath Sounds, Prolonged Expiratory Phase, Rhonchi - Cardiovascular Exam Cardiovascular Exam: REGULAR RHYTHM, +S1, +S2 - GI/Abdominal Exam GI & Abdominal Exam: Distended, Soft. absent: Tenderness - Rectal Exam Rectal Exam: Deferred - Exam Exam: NORMAL INSPECTION - Extremities Exam Extremities Exam: absent: Pedal Edema - Back Exam Back Exam: absent: CVA tenderness (L), CVA tenderness (R) - Neurological Exam Neurological Exam: Alert, Awake, CN II-XII Intact, Oriented x3 Neuro motor strength exam: Left Upper Extremity: 4, Right Upper Extremity: 4, Left Lower Extremity: 4, Right Lower Extremity: 4 - Psychiatric Exam Psychiatric exam: Normal Mood Assessment and Plan (1) ESRD (end stage renal disease) Status: Acute (2) Pleural effusion Status: Acute - Assessment and Plan (Free Text) Assessment: readmitted for recurrent pleural effusion was here last week with pleural effusion r/o TB has + Quanteferon gold had neg AFB smears x 3 Underwent VATS with pleural Bx which showed non-caseating granulomas, exudative pleural fluid Was placed on RIPE rx for TB and discharged home pending special stains for TB - special stains were neg for TB and Fungus would therefor cont RIPE rx for 6 weeks until cultures are finalized YELITZA levels have been sent for possible sarcoid , [place] ? Lymphoma less likely empiric IV antibiotics have been started
--- NOTE | 2018-06-27 15:01 | RAD ---
HISTORY: Status post right chest tube placement. COMPARISON: Chest x-ray performed 06/26/18, CT chest with contrast performed 06/26/18 TECHNIQUE: Chest, one view. FINDINGS: Right-sided chest tube. Right IJ approach dialysis catheter extends expected location of the right atrium. LUNGS: Large right-sided hydropneumothorax. Small left pleural effusion and consolidation. CARDIOVASCULAR: Cardiac silhouette partially obscured. OSSEOUS STRUCTURES: No acute osseous abnormality identified. VISUALIZED UPPER ABDOMEN: Unremarkable. OTHER FINDINGS: None. IMPRESSION: Large right-sided hydropneumothorax. Chest tube present. Small left pleural effusion and consolidation. Right IJ approach dialysis catheter.
--- NOTE | 2018-06-27 17:25 | CP.PCM.PN ---
Subjective - Date & Time of Evaluation Date of Evaluation: 06/27/18 Time of Evaluation: 11:00 - Subjective Subjective: Patient seen and examined Status post pigtail catheter insertion for recurrent pleural effusion Denies shortness of breath Objective - Vital Signs/Intake and Output Vital Signs (last 24 hours): Temp Pulse Resp BP Pulse Ox 98.5 F 115 H 19 116/72 96 06/27/18 16:10 06/27/18 17:03 06/27/18 17:03 06/27/18 17:03 06/27/18 17:03 Intake and Output: 06/27/18 06/27/18 06:59 18:59 Intake Total 150 275 Balance 150 275 - Medications Medications: Current Medications Acetaminophen (Tylenol 325mg Tab) 650 mg PO Q6 PRN PRN Reason: for fever Last Admin: 06/27/18 07:42 Dose: 650 mg Epoetin Milton (Procrit) 10,000 unit IV TTS [facility] Last Admin: 06/25/18 19:19 Dose: 10,000 unit Heparin Sodium (Porcine) (Heparin) 5,000 units SC Q12 [facility] Last Admin: 06/27/18 11:10 Dose: Not Given Vancomycin HCl 1 gm/ Sodium (Chloride) 250 mls @ 166.7 mls/hr IVPB MWF [facility]; Protocol Isoniazid (Niazid) 300 mg PO 0200 [facility]; Protocol Last Admin: 06/27/18 02:14 Dose: 300 mg Pantoprazole Sodium (Protonix Ec Tab) 40 mg PO DAILY [facility] Last Admin: 06/27/18 09:03 Dose: 40 mg Pyridoxine HCl (Vitamin B6 50 Mg Tab) 50 mg PO DAILY [facility] Last Admin: 06/27/18 09:14 Dose: 50 mg Rifampin (Rifampin Cap) 600 mg PO 0200 [facility]; Protocol Last Admin: 06/27/18 02:15 Dose: 600 mg Sevelamer Carbonate (Renvela) 800 mg PO TIDCC [facility] Last Admin: 06/27/18 17:12 Dose: 800 mg - Labs Labs: 06/27/18 12:00 06/27/18 06:28 PT 11.8 SECONDS (9.7-12.2) 06/25/18 12:13 INR 1.1 06/25/18 12:13 APTT 88 SECONDS (21-34) H 06/25/18 12:13 - Head Exam Head Exam: ATRAUMATIC, NORMOCEPHALIC - ENT Exam ENT Exam: Mucous Membranes Moist - Neck Exam Neck Exam: Normal Inspection - Respiratory Exam Respiratory Exam: Decreased Breath Sounds Assessment and Plan (1) Pleural effusion Assessment & Plan: Status post pigtail catheter insertion Follow-up fluid analysis Adenosine deaminase Hemodialysis Status: Acute (2) ESRD (end stage renal disease) Status: Acute
--- NOTE | 2018-06-27 18:31 | CP.PCM.PN ---
Subjective - Date & Time of Evaluation Date of Evaluation: 06/27/18 Time of Evaluation: 18:00 - Subjective Subjective: no new complaints. s/p thoracentesis. feels better Objective - Vital Signs/Intake and Output Vital Signs (last 24 hours): Temp Pulse Resp BP Pulse Ox 98.5 F 117 H 24 126/78 100 06/27/18 16:10 06/27/18 17:18 06/27/18 17:18 06/27/18 17:18 06/27/18 17:18 Intake and Output: 06/27/18 06/27/18 06:59 18:59 Intake Total 150 325 Balance 150 325 - Medications Medications: Current Medications Acetaminophen (Tylenol 325mg Tab) 650 mg PO Q6 PRN PRN Reason: for fever Last Admin: 06/27/18 07:42 Dose: 650 mg Epoetin Milton (Procrit) 10,000 unit IV TTS [facility] Last Admin: 06/25/18 19:19 Dose: 10,000 unit Heparin Sodium (Porcine) (Heparin) 5,000 units SC Q12 [facility] Last Admin: 06/27/18 11:10 Dose: Not Given Vancomycin HCl 1 gm/ Sodium (Chloride) 250 mls @ 166.7 mls/hr IVPB MWF [facility]; Protocol Isoniazid (Niazid) 300 mg PO 0200 [facility]; Protocol Last Admin: 06/27/18 02:14 Dose: 300 mg Pantoprazole Sodium (Protonix Ec Tab) 40 mg PO DAILY [facility] Last Admin: 06/27/18 09:03 Dose: 40 mg Pyridoxine HCl (Vitamin B6 50 Mg Tab) 50 mg PO DAILY [facility] Last Admin: 06/27/18 09:14 Dose: 50 mg Rifampin (Rifampin Cap) 600 mg PO 0200 [facility]; Protocol Last Admin: 06/27/18 02:15 Dose: 600 mg Sevelamer Carbonate (Renvela) 800 mg PO TIDCC [facility] Last Admin: 06/27/18 17:12 Dose: 800 mg - Labs Labs: 06/27/18 12:00 06/27/18 06:28 PT 11.8 SECONDS (9.7-12.2) 06/25/18 12:13 INR 1.1 06/25/18 12:13 APTT 88 SECONDS (21-34) H 06/25/18 12:13 - Constitutional Appears: Non-toxic - Head Exam Head Exam: NORMAL INSPECTION - Eye Exam Eye Exam: Normal appearance - ENT Exam ENT Exam: Mucous Membranes Moist - Neck Exam Neck Exam: Full ROM - Respiratory Exam Respiratory Exam: NORMAL BREATHING PATTERN - Cardiovascular Exam Cardiovascular Exam: REGULAR RHYTHM - GI/Abdominal Exam GI & Abdominal Exam: Normal Bowel Sounds - Rectal Exam Rectal Exam: Deferred - Extremities Exam Extremities Exam: absent: Pedal Edema - Back Exam Back Exam: NORMAL INSPECTION - Neurological Exam Neurological Exam: Alert - Psychiatric Exam Psychiatric exam: Normal Affect - Skin Skin Exam: Normal Color Assessment and Plan (1) Tachycardia Assessment & Plan: due to pleural effusions. hemodynamically stable. check echo Status: Acute (2) SOB (shortness of breath) Status: Acute (3) HTN (hypertension) Assessment & Plan: blood pressure controlled Status: Chronic
[2018-06-28 07:04] LABS: BASO % 0.5 % (0.0-2.0); EOS # 0.2 K/uL (0.0-0.7); LYMPH # 1.6 K/uL (1.0-4.3); MEAN CELL VOLUME 97.2 fL (81.0-99.0); MEAN CORPUSCULAR HEMOGLOBIN 31.1 pg (27.0-31.0); MEAN PLATELET VOLUME 8.1 fL (7.2-11.7); MONO # 0.7 K/uL (0.0-0.8); MONO % 10.7 % (0.0-10.0); NEUT # 4.2 K/uL (1.8-7.0); NEUT % 62.8 % (50.0-75.0); RBC 3.24 Mil/uL (3.80-5.20); RED CELL DISTRIBUTION WIDTH 16.5 % (11.5-14.5); WHITE BLOOD COUNT 6.8 K/uL (4.8-10.8)
[2018-06-28 07:09] LABS: HEMOGLOBIN 10.1 g/dL (11.0-16.0)
[2018-06-28 07:37] LABS: ALB/GLOB RATIO 0.7 (1.0-2.1); ALBUMIN 3.7 g/dL (3.5-5.0); ALT/SGPT < 6 U/L (9-52); AST/SGOT 36 U/L (14-36); BLOOD UREA NITROGEN 36 mg/dL (7-17); GFR NON-AFRICAN AMERICAN 9
--- NOTE | 2018-06-28 08:06 | RAD ---
HISTORY: re-assess for re-expansion COMPARISON: Chest x-ray performed 06/27/18 at 1237 hr TECHNIQUE: Chest, one view. FINDINGS: Right IJ approach central venous catheter extends the right atrium. LUNGS: Persistent right hydropneumothorax moderate in size, improved since prior study. Right pigtail catheter. Small left pleural effusion. Bibasilar consolidations. CARDIOVASCULAR: Partially obscured cardiac silhouette/cardiomegaly. Dense atherosclerotic calcifications of the aorta. OSSEOUS STRUCTURES: Degenerative changes. VISUALIZED UPPER ABDOMEN: Unremarkable. OTHER FINDINGS: None. IMPRESSION: Right IJ approach central venous catheter. Persistent right hydropneumothorax moderate in size, improved since prior study. Right pigtail catheter. Small left pleural effusion. Bibasilar consolidations.
--- NOTE | 2018-06-28 08:18 | CP.PCM.PN ---
Subjective - Date & Time of Evaluation Date of Evaluation: 06/28/18 Time of Evaluation: 08:15 - Subjective Subjective: Notes reviewed Remains in bed Chest tube in place and draining No overnight events reported Tolerated change in dialysis - completed 06/27 No pain currently Weak as previous Does not wantto speak much ROS: 10 point ros negative other than reported above Objective - Vital Signs/Intake and Output Vital Signs (last 24 hours): Temp Pulse Resp BP Pulse Ox 98.5 F 122 H 25 H 136/74 100 06/28/18 04:00 06/28/18 08:00 06/28/18 08:00 06/28/18 00:40 06/28/18 08:00 Intake and Output: 06/28/18 06/28/18 06:59 18:59 Intake Total 100 Output Total 970 Balance -870 - Medications Medications: Current Medications Acetaminophen (Tylenol 325mg Tab) 650 mg PO Q6 PRN PRN Reason: for fever Last Admin: 06/28/18 00:29 Dose: 650 mg Epoetin Milton (Procrit) 10,000 unit IV TTS [facility] Last Admin: 06/25/18 19:19 Dose: 10,000 unit Heparin Sodium (Porcine) (Heparin) 5,000 units SC Q12 [facility] Last Admin: 06/27/18 21:45 Dose: 5,000 units Vancomycin HCl 1 gm/ Sodium (Chloride) 250 mls @ 166.7 mls/hr IVPB MWF [facility]; Protocol Pantoprazole Sodium (Protonix Ec Tab) 40 mg PO DAILY [facility] Last Admin: 06/27/18 09:03 Dose: 40 mg Pyridoxine HCl (Vitamin B6 50 Mg Tab) 50 mg PO DAILY [facility] Last Admin: 06/27/18 09:14 Dose: 50 mg Sevelamer Carbonate (Renvela) 800 mg PO TIDCC [facility] Last Admin: 06/27/18 17:12 Dose: 800 mg - Labs Labs: 06/28/18 07:01 06/28/18 07:01 PT 11.8 SECONDS (9.7-12.2) 06/25/18 12:13 INR 1.1 06/25/18 12:13 APTT 88 SECONDS (21-34) H 06/25/18 12:13 - Constitutional Appears: Non-toxic, Chronically Ill - Head Exam Head Exam: ATRAUMATIC, NORMAL INSPECTION - Eye Exam Eye Exam: EOMI, Normal appearance - ENT Exam ENT Exam: Mucous Membranes Moist, Normal Oropharynx - Neck Exam Neck Exam: absent: Lymphadenopathy, Thyromegaly - Respiratory Exam Respiratory Exam: Rhonchi. absent: Rales - Cardiovascular Exam Cardiovascular Exam: +S1, +S2. absent: Rubs - GI/Abdominal Exam GI & Abdominal Exam: Soft, Normal Bowel Sounds - Extremities Exam Extremities Exam: absent: Pedal Edema, Tenderness - Neurological Exam Neurological Exam: Alert, Awake - Skin Skin Exam: Dry, Intact Assessment and Plan (1) ESRD (end stage renal disease) Status: Acute (2) Pleural effusion Status: Acute (3) SOB (shortness of breath) Status: Acute (4) HTN (hypertension) Status: Chronic (5) Type 2 diabetes mellitus with diabetic nephropathy Status: Acute (6) Anemia Status: Chronic - Assessment and Plan (Free Text) Assessment: HGb improved Management of chest tube per icu team HD 06/29 next Can give kayexalate although k elevation minimal on anti tb meds cultures negative for TB in past ID follow up
--- NOTE | 2018-06-28 08:27 | CP.PCM.PN ---
Subjective - Date & Time of Evaluation Date of Evaluation: 06/28/18 Time of Evaluation: 08:10 - Subjective Subjective: Pt feels much better; improve ppetite afterCT placement No unusual CP, [place] dec SOB, no n/v, no diarrhea RIPE meds drop c/o place a prophy order; T inc to 102 Objective - Vital Signs/Intake and Output Vital Signs (last 24 hours): Temp Pulse Resp BP Pulse Ox 102.5 F H 122 H 25 H 136/74 100 06/28/18 08:17 06/28/18 08:00 06/28/18 08:00 06/28/18 00:40 06/28/18 08:00 Intake and Output: 06/28/18 06/28/18 06:59 18:59 Intake Total 220 Output Total 970 100 Balance -750 -100 - Medications Medications: Current Medications Acetaminophen (Tylenol 325mg Tab) 650 mg PO Q6 PRN PRN Reason: for fever Last Admin: 06/28/18 08:17 Dose: 650 mg Epoetin Milton (Procrit) 10,000 unit IV TTS [facility] Last Admin: 06/25/18 19:19 Dose: 10,000 unit Heparin Sodium (Porcine) (Heparin) 5,000 units SC Q12 [facility] Last Admin: 06/27/18 21:45 Dose: 5,000 units Vancomycin HCl 1 gm/ Sodium (Chloride) 250 mls @ 166.7 mls/hr IVPB [facility]; Protocol Pantoprazole Sodium (Protonix Ec Tab) 40 mg PO DAILY [facility] Last Admin: 06/27/18 09:03 Dose: 40 mg Pyridoxine HCl (Vitamin B6 50 Mg Tab) 50 mg PO DAILY [facility] Last Admin: 06/27/18 09:14 Dose: 50 mg Sevelamer Carbonate (Renvela) 800 mg PO TIDCC [facility] Last Admin: 06/28/18 08:19 Dose: 800 mg Sodium Polystyrene Sulfonate (Kayexalate) 30 gm PO ONCE ONE Stop: 06/28/18 08:31 - Labs Labs: 06/28/18 07:01 06/28/18 07:01 PT 11.8 SECONDS (9.7-12.2) 06/25/18 12:13 INR 1.1 06/25/18 12:13 APTT 88 SECONDS (21-34) H 06/25/18 12:13 - Constitutional Appears: No Acute Distress - Eye Exam Eye Exam: Normal appearance - ENT Exam ENT Exam: Mucous Membranes Moist - Neck Exam Neck Exam: Full ROM. absent: Lymphadenopathy, Normal Inspection - Respiratory Exam Respiratory Exam: Decreased Breath Sounds. absent: Rales, Rhonchi, Wheezes - Cardiovascular Exam Cardiovascular Exam: REGULAR RHYTHM, +S1, +S2. absent: Gallop, JVD - GI/Abdominal Exam GI & Abdominal Exam: Soft. absent: Tenderness - Extremities Exam Extremities Exam: Full ROM, Normal Capillary Refill. absent: Calf Tenderness, Joint Swelling, Pedal Edema Assessment and Plan - Assessment and Plan (Free Text) Assessment: Large Pleural effusion w/ lung collapse s/p reinsertion of CT HTN, ESRD w/ anemia Discuss c/o RN; Restart RIPE Cont meds/ supportive care
[2018-06-28] MEDS: Pantoprazole 40 mg EC Tab PO SCH (09:07)
--- NOTE | 2018-06-28 10:47 | CP.PCM.PN ---
Subjective - Date & Time of Evaluation Date of Evaluation: 06/28/18 Time of Evaluation: 10:45 - Subjective Subjective: SURGERY NOTE DR. MAO 47F seen and examined at bedside. Patient tolerating nasal cannula. States her shortness of breath is improving. Denies pain. Objective - Vital Signs/Intake and Output Vital Signs (last 24 hours): Temp Pulse Resp BP Pulse Ox 102.5 F H 120 H 22 129/68 100 06/28/18 08:17 06/28/18 10:00 06/28/18 10:00 06/28/18 09:40 06/28/18 10:00 Intake and Output: 06/28/18 06/28/18 06:59 18:59 Intake Total 220 Output Total 970 100 Balance -750 -100 - Medications Medications: Current Medications Acetaminophen (Tylenol 325mg Tab) 650 mg PO Q6 PRN PRN Reason: for fever Last Admin: 06/28/18 08:17 Dose: 650 mg Epoetin Milton (Procrit) 10,000 unit IV TTS [facility] Last Admin: 06/25/18 19:19 Dose: 10,000 unit Ethambutol HCl (Myambutol) 400 mg PO TID [facility]; Protocol Heparin Sodium (Porcine) (Heparin) 5,000 units SC Q12 [facility] Last Admin: 06/28/18 09:07 Dose: 5,000 units Vancomycin HCl 1 gm/ Sodium (Chloride) 250 mls @ 166.7 mls/hr IVPB MWF [facility]; Protocol Pantoprazole Sodium (Protonix Ec Tab) 40 mg PO DAILY [facility] Last Admin: 06/28/18 09:07 Dose: 40 mg Pyrazinamide (Pyrazinamide) 1,000 mg PO DAILY [facility]; Protocol Pyridoxine HCl (Vitamin B6 50 Mg Tab) 50 mg PO DAILY [facility] Last Admin: 06/28/18 09:07 Dose: 50 mg Sevelamer Carbonate (Renvela) 800 mg PO TIDCC [facility] Last Admin: 06/28/18 08:19 Dose: 800 mg - Labs Labs: 06/28/18 07:01 06/28/18 07:01 PT 11.8 SECONDS (9.7-12.2) 06/25/18 12:13 INR 1.1 06/25/18 12:13 APTT 88 SECONDS (21-34) H 06/25/18 12:13 - Constitutional Appears: Non-toxic, No Acute Distress - Respiratory Exam Respiratory Exam: NORMAL BREATHING PATTERN Additional comments: right pleural tube - 1100cc/24hrs serous fluid since insertion - Cardiovascular Exam Cardiovascular Exam: REGULAR RHYTHM, +S1, +S2 - GI/Abdominal Exam GI & Abdominal Exam: Soft. absent: Distended, Firm, Guarding, Rigid, T enderness, Rebound - Extremities Exam Extremities Exam: absent: Pedal Edema, Tenderness - Neurological Exam Neurological Exam: Alert, Awake - Skin Skin Exam: Dry, Intact, Normal Color, Warm Assessment and Plan - Assessment and Plan (Free Text) Assessment: 47F s/p R pleural drainage catheter insertion POD#1 for pleural fluid Plan: - await fluid labs - f/u cultures - monitor drainage Further recs discuss with Dr. Vesta Toney, PGY3
[2018-06-28] MEDS: Epoetin Alfa 10,000 unit/ml Dialysis IV SCH (11:00)
--- NOTE | 2018-06-28 11:03 | US ---
PROCEDURE: Date of procedure: 06/27/2018 Procedure: 1. Placement of a right chest tube with ultrasound guidance, CPT 96749 Medications: 6cc 1 percent lidocaine, HISTORY: Large right pleural effusion TECHNIQUE: Following informed consent and procedure time-out, the patient's right chest was marked, prepped and draped in the usual sterile fashion. Ultrasound showed a large loculated right pleural effusion. After the skin was anesthetized with 1% lidocaine and the pt was sedated by the anesthesiologist, a Tacho catheter was advanced under ultrasound guidance into the pleural space. The catheter was exchanged over an 035 guidewire and tract was dilated to accommodate a 8.5 [place] pigtail catheter formed within the pleural space. There is return of slight serosanguinous fluid. The catheter was secured to patient's skin. A xeroform dressing was applied. The catheter was then attached to a pleurovac. Postprocedure x-ray showed a right chest tube. IMPRESSION: Placement of an 8.5 [place] right chest tube. There were no immediate complications.
--- NOTE | 2018-06-28 12:48 | CP.PCM.PN ---
Subjective - Date & Time of Evaluation Date of Evaluation: 06/28/18 Time of Evaluation: 08:00 - Subjective Subjective: afeb no fever no pain Objective - Vital Signs/Intake and Output Vital Signs (last 24 hours): Temp Pulse Resp BP Pulse Ox 100.3 F H 104 H 20 119/65 98 06/28/18 12:00 06/28/18 12:00 06/28/18 12:00 06/28/18 11:40 06/28/18 12:00 Intake and Output: 06/28/18 06/28/18 06:59 18:59 Intake Total 220 Output Total 970 100 Balance -750 -100 - Medications Medications: Current Medications Acetaminophen (Tylenol 325mg Tab) 650 mg PO Q6 PRN PRN Reason: for fever Last Admin: 06/28/18 08:17 Dose: 650 mg Epoetin Milton (Procrit) 10,000 unit IV TTS [facility] Last Admin: 06/25/18 19:19 Dose: 10,000 unit Ethambutol HCl (Myambutol) 800 mg PO TTS [facility]; Protocol Last Admin: 06/28/18 12:20 Dose: 800 mg Heparin Sodium (Porcine) (Heparin) 5,000 units SC Q12 [facility] Last Admin: 06/28/18 09:07 Dose: 5,000 units Vancomycin HCl 1 gm/ Sodium (Chloride) 250 mls @ 166.7 mls/hr IVPB MWF [facility]; Protocol Pantoprazole Sodium (Protonix Ec Tab) 40 mg PO DAILY [facility] Last Admin: 06/28/18 09:07 Dose: 40 mg Pyrazinamide (Pyrazinamide) 1,000 mg PO TTS [facility]; Protocol Last Admin: 06/28/18 12:20 Dose: 1,000 mg Pyridoxine HCl (Vitamin B6 50 Mg Tab) 50 mg PO DAILY [facility] Last Admin: 06/28/18 09:07 Dose: 50 mg Sevelamer Carbonate (Renvela) 800 mg PO TIDCC [facility] Last Admin: 06/28/18 12:20 Dose: 800 mg - Labs Labs: 06/28/18 07:01 06/28/18 07:01 PT 11.8 SECONDS (9.7-12.2) 06/25/18 12:13 INR 1.1 06/25/18 12:13 APTT 88 SECONDS (21-34) H 06/25/18 12:13 - Constitutional Appears: Non-toxic, Cachectic, Chronically Ill - Head Exam Head Exam: NORMOCEPHALIC - Eye Exam Eye Exam: absent: Scleral icterus - ENT Exam ENT Exam: Mucous Membranes Dry - Neck Exam Neck Exam: absent: Lymphadenopathy - Respiratory Exam Respiratory Exam: Decreased Breath Sounds - Cardiovascular Exam Cardiovascular Exam: REGULAR RHYTHM - GI/Abdominal Exam GI & Abdominal Exam: Distended, Soft - Rectal Exam Rectal Exam: Deferred - Exam Exam: NORMAL INSPECTION - Extremities Exam Extremities Exam: absent: Pedal Edema - Back Exam Back Exam: absent: CVA tenderness (L), CVA tenderness (R) - Neurological Exam Neurological Exam: Alert, Awake, Oriented x3 Assessment and Plan (1) ESRD (end stage renal disease) Status: Acute (2) Pleural effusion Status: Acute - Assessment and Plan (Free Text) Assessment: cont IV antibiotics chest tube in place
--- NOTE | 2018-06-28 14:02 | RAD ---
Date of service: 06/28/2018 HISTORY: re-expansion of lung COMPARISON: Portable chest 06/27/2018, 6:32 p.m.. FINDINGS: LUNGS: Right central venous dialysis catheter is unchanged in position. Right pleural drainage catheter is unchanged in position as well right pneumothorax resolved. Significant right pleural effusion remains, which may have increased in the interval. Trace left pleural effusion suspected. Limited linear atelectasis is noted at the left base. None is appreciated within aerated lung at the right side. PLEURA: As above. CARDIOVASCULAR: No aortic atherosclerotic calcification present. Normal cardiac size. No pulmonary vascular congestion. OSSEOUS STRUCTURES: No significant abnormalities. VISUALIZED UPPER ABDOMEN: Normal. OTHER FINDINGS: None. IMPRESSION: Right pneumothorax appears resolved with right pleural drainage catheter unchanged in position. Right pleural effusion is reiterated and may have slightly increased in the interval. Trace of pleural effusion evident. Continued clinical and radiographic monitoring recommended.
--- NOTE | 2018-06-28 14:58 | CP.CCUPN ---
CCU Subjective - Physician Review Subjective (Free Text): Peggy Gipson DO, PGY-2: ICU Progress Note for Dr. Moore Patient was seen and examined at bedside. She reports having fever overnight. She reports decreased sputum production. We started patient on RIPE therapy for tuberculosis. 06/27/18 13:51 06/28/18 14:55 06/28/18 14:56 CCU Objective - Vital Signs / Intake & Output Vital Signs (Last 4 hours): Vital Signs Temp Pulse Resp BP Pulse Ox 06/28/18 12:00 100.3 F H 104 H 20 98 06/28/18 11:40 104 H 19 119/65 95 06/28/18 11:00 105 H 19 92 L Intake and Output (Last 8hrs): Intake & Output 06/27/18 06/28/18 06/28/18 22:59 06:59 14:59 Intake Total 200 220 Output Total 970 100 Balance -770 220 -100 Weight 104 lb 0.113 oz Intake: Oral 200 220 Blood Product 0 Apheresis Rbc Cp2d As3 Lr 0 1st Unit [id number] Output: Chest Tube Drainage 970 100 Right 970 100 Other: # Voids Urine, Voided 0 0 0 # Bowel Movements 0 0 0 - Physical Exam Head: Positive for: Atraumatic, Normocephalic Pupils: Positive for: PERRL Extroacular Muscles: Positive for: EOMI Conjunctiva: Positive for: Normal Mouth: Positive for: Moist Mucous Membranes. Negative for: Dry Neck: Positive for: Normal Range of Motion. Negative for: JVD Respiratory/Chest: Positive for: Other (right lung sounds diminshed) Cardiovascular: Positive for: Regular Rate and Rhythm, Normal S1, S2 Abdomen: Positive for: Normal Bowel Sounds. Negative for: Tenderness Upper Extremity: Positive for: Normal Inspection Lower Extremity: Positive for: Normal Inspection Neurological: Positive for: CN II-XII Intact, Speech Normal Skin: Positive for: Warm, Dry, Normal Color Psychiatric: Positive for: Alert, Oriented x 3, Normal Insight - Medications Active Medications: Active Medications Generic Name Dose Route Start Last Admin Trade Name Freq PRN Reason Stop Dose Admin Acetaminophen 650 mg 06/26/18 21:40 06/28/18 08:17 Tylenol 325mg Tab PO 650 mg Q6 PRN Administration for fever Epoetin Milton 10,000 unit 06/25/18 10:00 06/25/18 19:19 Procrit IV 10,000 unit TTS [facility] Administration Ethambutol HCl 800 mg 06/28/18 12:00 06/28/18 12:20 Myambutol PO 800 mg TTS [facility] Administration Protocol Heparin Sodium (Porcine) 5,000 units 06/26/18 10:00 06/28/18 09:07 Heparin SC 5,000 units Q12 [facility] Administration Vancomycin HCl 1 gm/ Sodium 250 mls @ 166.7 mls/hr 06/29/18 09:00 Chloride IVPB MWF [facility] Protocol Pantoprazole Sodium 40 mg 06/26/18 10:00 06/28/18 09:07 Protonix Ec Tab PO 40 mg DAILY [facility] Administration Pyrazinamide 1,000 mg 06/28/18 12:00 06/28/18 12:20 Pyrazinamide PO 1,000 mg TTS [facility] Administration Protocol Pyridoxine HCl 50 mg 06/27/18 10:00 06/28/18 09:07 Vitamin B6 50 Mg Tab PO 50 mg DAILY [facility] Administration Sevelamer Carbonate 800 mg 06/26/18 17:00 06/28/18 12:20 Renvela PO 800 mg TIDCC [facility] Administration - Patient Studies Lab Studies: Microbiology Studies 06/25/18 12:30 Blood Culture - Preliminary Blood NO GROWTH AFTER 3 DAYS 06/25/18 12:13 Blood Culture - Preliminary Blood NO GROWTH AFTER 3 DAYS 06/27/18 13:24 Gram Stain - Final Pleural Fluid Body Fluid Culture - Preliminary NO GROWTH AFTER 24 HOURS 06/26/18 03:51 Blood Culture - Preliminary Blood NO GROWTH AFTER 48 HOURS 06/26/18 03:51 Blood Culture - Preliminary Blood NO GROWTH AFTER 48 HOURS Lab Studies 06/28/18 06/28/18 06/27/18 Range/Units 07:01 07:01 11:41 WBC 6.8 (4.8-10.8) K/uL RBC 3.24 L (3.80-5.20) Mil/uL Hgb 10.1 L D (11.0-16.0) g/dL Hct 31.5 L (34.0-47.0) % MCV 97.2 (81.0-99.0) fL MCH 31.1 H (27.0-31.0) pg MCHC 32.0 L (33.0-37.0) g/dL RDW 16.5 H (11.5-14.5) % Plt Count 278 (130-400) K/uL MPV 8.1 (7.2-11.7) fL Neut % (Auto) 62.8 (50.0-75.0) % Lymph % (Auto) 23.0 (20.0-40.0) % Newberry % (Auto) 10.7 H (0.0-10.0) % Eos % (Auto) 3.0 (0.0-4.0) % Baso % (Auto) 0.5 (0.0-2.0) % Neut # (Auto) 4.2 (1.8-7.0) K/uL Lymph # (Auto) 1.6 (1.0-4.3) K/uL Newberry # (Auto) 0.7 (0.0-0.8) K/uL Eos # (Auto) 0.2 (0.0-0.7) K/uL Baso # (Auto) 0.0 (0.0-0.2) K/uL Sodium 135 (132-148) mmol/L Potassium 5.7 H (3.6-5.2) mmol/L Chloride 97 L (98-107) mmol/L Carbon Dioxide 28 (22-30) mmol/L Anion Gap 16 (10-20) BUN 36 H (7-17) mg/dL Creatinine 4.9 H (0.7-1.2) mg/dL Est GFR ( Amer) 11 Est GFR (Non-Af Amer) 9 POC Glucose (mg/dL) 96 (65-110) mg/dL Random Glucose 84 (65-105) mg/dL Calcium 10.0 (8.6-10.4) mg/dl Total Bilirubin 0.8 (0.2-1.3) mg/dL AST 36 D (14-36) U/L ALT < 6 L (9-52) U/L Alkaline Phosphatase 74 (38-126) U/L Total Protein 8.7 H (6.3-8.3) g/dL Albumin 3.7 (3.5-5.0) g/dL Globulin 5.0 H (2.2-3.9) gm/dL Albumin/Globulin Ratio 0.7 L (1.0-2.1) Angiotensin Convert Enz (9-67) U/L PTH w/Ion &Tot Calcium (14-64) pg/mL Blood Type Antibody Screen 06/27/18 06/27/18 06/27/18 Range/Units 09:22 06:28 06:28 WBC (4.8-10.8) K/uL RBC (3.80-5.20) Mil/uL Hgb (11.0-16.0) g/dL Hct (34.0-47.0) % MCV (81.0-99.0) fL MCH (27.0-31.0) pg MCHC (33.0-37.0) g/dL RDW (11.5-14.5) % Plt Count (130-400) K/uL MPV (7.2-11.7) fL Neut % (Auto) (50.0-75.0) % Lymph % (Auto) (20.0-40.0) % Newberry % (Auto) (0.0-10.0) % Eos % (Auto) (0.0-4.0) % Baso % (Auto) (0.0-2.0) % Neut # (Auto) (1.8-7.0) K/uL Lymph # (Auto) (1.0-4.3) K/uL Newberry # (Auto) (0.0-0.8) K/uL Eos # (Auto) (0.0-0.7) K/uL Baso # (Auto) (0.0-0.2) K/uL Sodium (132-148) mmol/L Potassium (3.6-5.2) mmol/L Chloride (98-107) mmol/L Carbon Dioxide (22-30) mmol/L Anion Gap (10-20) BUN (7-17) mg/dL Creatinine (0.7-1.2) mg/dL Est GFR ( Amer) Est GFR (Non-Af Amer) POC Glucose (mg/dL) (65-110) mg/dL Random Glucose (65-105) mg/dL Calcium (8.6-10.4) mg/dl Total Bilirubin (0.2-1.3) mg/dL AST (14-36) U/L ALT (9-52) U/L Alkaline Phosphatase (38-126) U/L Total Protein (6.3-8.3) g/dL Albumin (3.5-5.0) g/dL Globulin (2.2-3.9) gm/dL Albumin/Globulin Ratio (1.0-2.1) Angiotensin Convert Enz 55 (9-67) U/L PTH w/Ion &Tot Calcium 35 (14-64) pg/mL Blood Type O POSITIVE Antibody Screen Negative Laboratory Results - last 24 hr 06/27/18 06/27/18 06/27/18 06:28 06:28 09:22 WBC RBC Hgb Hct MCV MCH MCHC RDW Plt Count MPV Neut % (Auto) Lymph % (Auto) Newberry % (Auto) Eos % (Auto) Baso % (Auto) Neut # (Auto) Lymph # (Auto) Newberry # (Auto) Eos # (Auto) Baso # (Auto) Sodium Potassium Chloride Carbon Dioxide Anion Gap BUN Creatinine Est GFR ( Amer) Est GFR (Non-Af Amer) POC Glucose (mg/dL) Random Glucose Calcium Total Bilirubin AST ALT Alkaline Phosphatase Total Protein Albumin Globulin Albumin/Globulin Ratio Angiotensin Convert Enz 55 PTH w/Ion &Tot Calcium 35 Blood Type O POSITIVE Antibody Screen Negative 06/27/18 06/28/18 06/28/18 11:41 07:01 07:01 WBC 6.8 RBC 3.24 L Hgb 10.1 L D Hct 31.5 L MCV 97.2 MCH 31.1 H MCHC 32.0 L RDW 16.5 H Plt Count 278 MPV 8.1 Neut % (Auto) 62.8 Lymph % (Auto) 23.0 Newberry % (Auto) 10.7 H Eos % (Auto) 3.0 Baso % (Auto) 0.5 Neut # (Auto) 4.2 Lymph # (Auto) 1.6 Newberry # (Auto) 0.7 Eos # (Auto) 0.2 Baso # (Auto) 0.0 Sodium 135 Potassium 5.7 H Chloride 97 L Carbon Dioxide 28 Anion Gap 16 BUN 36 H Creatinine 4.9 H Est GFR ( Amer) 11 Est GFR (Non-Af Amer) 9 POC Glucose (mg/dL) 96 Random Glucose 84 Calcium 10.0 Total Bilirubin 0.8 AST 36 D ALT < 6 L Alkaline Phosphatase 74 Total Protein 8.7 H Albumin 3.7 Globulin 5.0 H Albumin/Globulin Ratio 0.7 L Angiotensin Convert Enz PTH w/Ion &Tot Calcium Blood Type Antibody Screen Radiology Impressions: Radiology Impressions Interventional Procedure 06/27/18 11:29 IMPRESSION: Placement of an 8.5 Polish right chest tube. There were no immediate complications. Chest X-Ray 06/27/18 12:21 IMPRESSION: Large right-sided hydropneumothorax. Chest tube present. Small left pleural effusion and consolidation. Right IJ approach dialysis catheter. Chest X-Ray 06/27/18 18:16 IMPRESSION: Right IJ approach central venous catheter. Persistent right hydropneumothorax moderate in size, improved since prior study. Right pigtail catheter. Small left pleural effusion. Bibasilar consolidations. Chest X-Ray 06/28/18 06:00 IMPRESSION: Right pneumothorax appears resolved with right pleural drainage catheter unchanged in position. Right pleural effusion is reiterated and may have slightly increased in the interval. Trace of pleural effusion evident. Continued clinical and radiographic monitoring recommended. EKG/Cardiology Studies: Cardiology / EKG Studies 06/28/18 08:41 EKG [ELECTROCARDIOGRAM] Routine Comment: Mode Of Transportation: Reason For Exam: peaked t waves on tele monitor Fingerstick Blood Sugar Results: 96 Critical Care Progress Note - Ventilator Checklist Head of Bed 30 Degrees: Yes - Nutrition Nutrition: Nutrition Category Date Time Status Renal Diet [DIET] Diets 06/27/18 Lunch Active Assessment/Plan - Assessment and Plan (Free Text) Assessment: 47 year old female with a past medical history of ESRD on HD, history of TB (per ID note should be on rifampin, isoniazid, pyrazanadmie, and ethambutol) hypertension, persistent right sided pleural effusion who presented to [facility] for worsening shortness of breath and was found total collapse of right lung w. She was admitted to the floors however a rapid response was called given the patient went into a narrow complex tachycardia with the HR reported to be in the 180s. She was treated medically and was maintained on BIPAP intermittently. She underwent chest tube placement in the right hemithorax, received one unit of PRBCs, and underwent dialysis today. She feels much better. We will continue her RIPE for six weeks. ID is following, periodic assessment of color vision and other measures will need to be re-adressed. We will discontinue Vancomycin as blood culture, urine cultures, and sputum cultures are negative. Patient has been febrile. Review of pleural biopsy showed non- caseating granuloma. Pleural studies show a lymphocyte predominant of 87%. Without even considering the plerual fluid analysis, we will continue RIPE for 2 months. Adenosine deaminase level is pending. ID is also following. Neuro - HOB 30 degree - Neurochecks qshift Cardiology - Echocardiogram performed, interpretation pending - Dr. Ascencio consulted for episode of SVT; patient has not had anymore episodes Pulmonology - pig tail catheter inserted in placed in right lung - Drained 1,070 ml of fluid thus far - chest X-ray shows right central venous dialysis catheter is unchanged in position. Right pleural drainage catheter is unchanged in position as well right pneumothorax resolved. Significant right pleural effusion remains, which may have increased in the interval. Trace left pleural effusion suspected. Limited linear atelectasis is noted at the left base. None is appreciated within aerated lung at the right side. Continued clinical and radiographic monitoring recommended. - Pleural fluid sent for cell count, differential, culture, gram stain, acid fast staining, protein, LDH, ADA, amylase, lipase - 4% oxygen per NC with 100% SpO2 ID - Rifampin - Isoniazid - Pyridoxine - Ethambutol - Dr. Awan consulted and recommends patient to continue RIPE for at least 6 weeks given the final cultures are not back - Discontinue broad spectrum antibiotics- Vancomycin 250 gram MWF - Blood cultures are negative to date - if patient's fever persist we will re-order sepsis work-up - Tylenol 650 q6h PRN for fever greater than 100.4 F Nephrology - Continue HD MWF, or as per Nephrology - Dose antibiotics renally and avoid nephrotoxins - Dr. Granados's group consulted - Sevelmer 800 mg TIDAC - Procrit 10,000 units TTS GI - Renal diet - protonix 40 mg DVT prophylaxis - Heparin 5000 units q12h Case reviewed and discussed with attending physician, Dr. Allen - Date & Time Date: 06/28/18 Time: 15:43
--- NOTE | 2018-06-28 16:10 | CP.PCM.PN ---
Subjective - Date & Time of Evaluation Date of Evaluation: 06/28/18 Time of Evaluation: 13:00 - Subjective Subjective: Patient seen and examined at bedside, resting comfortably. Patient denied chest pain, dyspnea, nausea, vomiting. Patient is being transferred to floors today. Physical Exam Gen: alert and awake and oriented x3, no acute distress Cardio: RRR, no murmur Pulm: decreased breath sounds, crackles, no accessory muscle use GI: soft, nontender Extremities: no edema A&P 1. Pleural effusion -Chest x-ray 06/28/18: report pending -Continue to monitor labs -Blood culture 06/26/18: no growth to date -Pleural fluid 06/27/18: no growth after 24 hours; gram stain no organisms seen -Adenosine deaminase -Transfer to floors from ICU 2. ESRD -Hemodialysis Objective - Vital Signs/Intake and Output Vital Signs (last 24 hours): Temp Pulse Resp BP Pulse Ox 100.3 F H 104 H 20 119/65 98 06/28/18 12:00 06/28/18 12:00 06/28/18 12:00 06/28/18 11:40 06/28/18 12:00 Intake and Output: 06/28/18 06/28/18 06:59 18:59 Intake Total 220 Output Total 970 100 Balance -750 -100 - Medications Medications: Current Medications Acetaminophen (Tylenol 325mg Tab) 650 mg PO Q6 PRN PRN Reason: for fever Last Admin: 06/28/18 08:17 Dose: 650 mg Epoetin Milton (Procrit) 10,000 unit IV TTS [facility] Last Admin: 06/25/18 19:19 Dose: 10,000 unit Ethambutol HCl (Myambutol) 800 mg PO TTS [facility]; Protocol Last Admin: 06/28/18 12:20 Dose: 800 mg Heparin Sodium (Porcine) (Heparin) 5,000 units SC Q12 [facility] Last Admin: 06/28/18 09:07 Dose: 5,000 units Vancomycin HCl 1 gm/ Sodium (Chloride) 250 mls @ 166.7 mls/hr IVPB MWF [facility]; Protocol Isoniazid (Niazid) 300 mg PO DAILY [facility]; Protocol Stop: 08/08/18 10:01 Pantoprazole Sodium (Protonix Ec Tab) 40 mg PO DAILY [facility] Last Admin: 06/28/18 09:07 Dose: 40 mg Pyrazinamide (Pyrazinamide) 1,000 mg PO TTS [facility]; Protocol Last Admin: 06/28/18 12:20 Dose: 1,000 mg Pyridoxine HCl (Vitamin B6 50 Mg Tab) 50 mg PO DAILY [facility] Last Admin: 06/28/18 09:07 Dose: 50 mg Rifampin (Rifampin) 450 mg PO DAILY [facility]; Protocol Stop: 08/08/18 10:01 Sevelamer Carbonate (Renvela) 800 mg PO TIDCC [facility] Last Admin: 06/28/18 12:20 Dose: 800 mg - Labs Labs: 06/28/18 07:01 06/28/18 07:01 PT 11.8 SECONDS (9.7-12.2) 06/25/18 12:13 INR 1.1 06/25/18 12:13 APTT 88 SECONDS (21-34) H 06/25/18 12:13 Assessment and Plan (1) Pleural effusion Status: Acute (2) ESRD (end stage renal disease) Status: Acute
--- NOTE | 2018-06-28 23:32 | CARD ---
APPROVED REPORT Date of service: 06/27/2018 EXAM: Two-dimensional and M-mode echocardiogram with Doppler and color Doppler. Other Information Quality : GoodRhythm : INDICATION Dyspnea Pleural Effusion RISK FACTORS Hypertension 2D DIMENSIONS IVSd1.0 (0.7-1.1cm)LVDd4.9 (3.9-5.9cm) PWd1.0 (0.7-1.1cm)LA Mbnaym25 (18-58mL) LVDs3.6 (2.5-4.0cm)FS (%) 26.3 % LVEF (%)51.4 (>50%)LVEF (Wilson's)49.77 % M-Mode DIMENSIONS RVDd1.80 (2.1-3.2cm)Left Atrium (MM)2.90 (2.5-4.0cm) IVSd0.96 (0.7-1.1cm)Aortic Root3.03 (2.2-3.7cm) LVDd5.01 (4.0-5.6cm)Aortic Cusp Exc.1.64 (1.5-2.0cm) PWd0.93 (0.7-1.1cm)FS (%) 28 % LVDs3.63 (2.0-3.8cm)LVEF (%)53 (>50%) Mitral Valve MV E Shpmioal390.3cm/sMV A Bwpszhcc94.1cm/sE/A ratio1.1 TDI Lateral E' Peak V8.55cm/sMedial E' Peak V10.80cm/sE/Lateral E'12.4 E/Medial E'9.8 Tricuspid Valve TR Peak Umvppyci086cy/sTR Peak Gr.[id number] LEFT VENTRICLE The left ventricle is normal size. There is normal left ventricular wall thickness. Left ventricle systolic function is normal. The Ejection Fraction is 50-55%. There is normal LV segmental wall motion. The left ventricular diastolic function is normal. RIGHT VENTRICLE The right ventricle is normal size. There is normal right ventricular wall thickness. The right ventricular systolic function is normal. ATRIA The left atrium size is normal. The right atrium size is normal. The discontinuity of the interatrial septum is suggestive of an atrial septal defect. AORTIC VALVE The aortic valve is normal in structure. There is trace aortic regurgitation. There is no aortic valvular stenosis. MITRAL VALVE The mitral valve is normal in structure. There is no evidence of mitral valve prolapse. There is no mitral valve stenosis. Mitral regurgitation is mild. TRICUSPID VALVE The tricuspid valve is normal in structure. There is mild to moderate tricuspid regurgitation. Right ventricular systolic pressure is estimated at 40-50 mmHg. There is mild-moderate pulmonary hypertension. PULMONIC VALVE The pulmonic valve is not well visualized. There is mild pulmonic valvular regurgitation. GREAT VESSELS The aortic root is normal in size. PERICARDIAL EFFUSION There is no significant pericardial effusion. <Conclusion> The LV systolic function is normal. The Ejection Fraction is 50-55%. The discontinuity of the interatrial septum is suggestive of an atrial septal defect. Suggest MAK. There is trace aortic regurgitation. Mitral regurgitation is mild. There is mild to moderate tricuspid regurgitation. There is mild-moderate pulmonary hypertension. There is mild pulmonic valvular regurgitation.
[2018-06-29 06:19] LABS: BASO % 0.7 % (0.0-2.0); EOS # 0.2 K/uL (0.0-0.7); MEAN CORPUSCULAR HGB CONC 32.1 g/dL (33.0-37.0); NEUT # 3.2 K/uL (1.8-7.0); WHITE BLOOD COUNT 4.7 K/uL (4.8-10.8)
[2018-06-29 06:21] LABS: EOS % 3.5 % (0.0-4.0); HEMOGLOBIN 9.9 g/dL (11.0-16.0); LYMPH # 0.8 K/uL (1.0-4.3); LYMPH % 17.6 % (20.0-40.0); MEAN CELL VOLUME 96.5 fL (81.0-99.0); MEAN PLATELET VOLUME 8.1 fL (7.2-11.7); MONO # 0.5 K/uL (0.0-0.8); MONO % 10.5 % (0.0-10.0); NEUT % 67.7 % (50.0-75.0); NRBC % 0.1 % (0.0-2.0); RBC 3.2 Mil/uL (3.80-5.20); RED CELL DISTRIBUTION WIDTH 16.3 % (11.5-14.5)
[2018-06-29 06:36] LABS: GFR NON-AFRICAN AMERICAN 6
[2018-06-29 06:40] LABS: ALB/GLOB RATIO 0.8 (1.0-2.1); ALBUMIN 3.3 g/dL (3.5-5.0); ALT/SGPT < 6 U/L (9-52); AST/SGOT 24 U/L (14-36); BLOOD UREA NITROGEN 54 mg/dL (7-17); CALCIUM 9.5 mg/dl (8.6-10.4)
--- NOTE | 2018-06-29 07:09 | CP.PCM.PN ---
Subjective - Date & Time of Evaluation Date of Evaluation: 06/29/18 Time of Evaluation: 07:07 - Subjective Subjective: no distress right chest tube in denies dyspnea tolerated HD yesterday no pain +cough no n/v/diarrhea decreased u/o no rash no headache no joint pain no change in vision no sore throat Objective - Vital Signs/Intake and Output Vital Signs (last 24 hours): Temp Pulse Resp BP Pulse Ox 100.1 F H 109 H 24 131/75 96 06/29/18 02:00 06/29/18 06:40 06/29/18 06:40 06/29/18 06:40 06/29/18 06:40 Intake and Output: 06/29/18 06/29/18 06:59 18:59 Intake Total 320 Output Total 60 Balance 260 - Medications Medications: Current Medications Acetaminophen (Tylenol 325mg Tab) 650 mg PO Q6 PRN PRN Reason: for fever Last Admin: 06/29/18 00:14 Dose: 650 mg Epoetin Milton (Procrit) 10,000 unit IV MWF [facility] Ethambutol HCl (Myambutol) 800 mg PO TTS [facility]; Protocol Last Admin: 06/28/18 12:20 Dose: 800 mg Heparin Sodium (Porcine) (Heparin) 5,000 units SC Q12 [facility] Last Admin: 06/28/18 22:20 Dose: 5,000 units Isoniazid (Niazid) 300 mg PO DAILY [facility]; Protocol Stop: 08/08/18 10:01 Last Admin: 06/28/18 16:38 Dose: 300 mg Pantoprazole Sodium (Protonix Ec Tab) 40 mg PO DAILY [facility] Last Admin: 06/28/18 09:07 Dose: 40 mg Pyrazinamide (Pyrazinamide) 1,000 mg PO TTS [facility]; Protocol Last Admin: 06/28/18 12:20 Dose: 1,000 mg Pyridoxine HCl (Vitamin B6 50 Mg Tab) 50 mg PO DAILY [facility] Last Admin: 06/28/18 09:07 Dose: 50 mg Rifampin (Rifampin) 450 mg PO DAILY [facility]; Protocol Stop: 08/08/18 10:01 Last Admin: 06/28/18 16:30 Dose: 450 mg Sevelamer Carbonate (Renvela) 800 mg PO TIDCC [facility] Last Admin: 06/28/18 17:56 Dose: 800 mg - Labs Labs: 06/29/18 06:07 06/29/18 06:04 PT 11.8 SECONDS (9.7-12.2) 06/25/18 12:13 INR 1.1 06/25/18 12:13 APTT 88 SECONDS (21-34) H 06/25/18 12:13 - Constitutional Appears: Non-toxic, No Acute Distress - Head Exam Head Exam: ATRAUMATIC, NORMAL INSPECTION - Eye Exam Eye Exam: EOMI - ENT Exam ENT Exam: Mucous Membranes Moist - Neck Exam Neck Exam: Full ROM. absent: Lymphadenopathy - Respiratory Exam Respiratory Exam: Decreased Breath Sounds. absent: Respiratory Distress - Cardiovascular Exam Cardiovascular Exam: Tachycardia. absent: Rubs - Extremities Exam Extremities Exam: Full ROM. absent: Pedal Edema Assessment and Plan - Assessment and Plan (Free Text) Assessment: HD in am await diagnostic studies chest tube management noted hypercalcemia improved
--- NOTE | 2018-06-29 08:24 | CP.PCM.PN ---
Subjective - Date & Time of Evaluation Date of Evaluation: 06/29/18 Time of Evaluation: 07:50 - Subjective Subjective: Pt unable to sleep wel c/o " too much activity in ICU". Request to br transfer back to floor. No CP, no more SOB, (+) dry cough, no n/v, no diarrhea Objective - Vital Signs/Intake and Output Vital Signs (last 24 hours): Temp Pulse Resp BP Pulse Ox 100.1 F H 117 H 12 148/72 99 06/29/18 02:00 06/29/18 07:41 06/29/18 07:40 06/29/18 07:40 06/29/18 07:40 Intake and Output: 06/29/18 06/29/18 06:59 18:59 Intake Total 320 Output Total 60 Balance 260 - Medications Medications: Current Medications Acetaminophen (Tylenol 325mg Tab) 650 mg PO Q6 PRN PRN Reason: for fever Last Admin: 06/29/18 00:14 Dose: 650 mg Epoetin Milton (Procrit) 10,000 unit IV MWF [facility] Ethambutol HCl (Myambutol) 800 mg PO TTS [facility]; Protocol Last Admin: 06/28/18 12:20 Dose: 800 mg Heparin Sodium (Porcine) (Heparin) 5,000 units SC Q12 [facility] Last Admin: 06/28/18 22:20 Dose: 5,000 units Isoniazid (Niazid) 300 mg PO DAILY [facility]; Protocol Stop: 08/08/18 10:01 Last Admin: 06/28/18 16:38 Dose: 300 mg Pantoprazole Sodium (Protonix Ec Tab) 40 mg PO DAILY [facility] Last Admin: 06/28/18 09:07 Dose: 40 mg Pyrazinamide (Pyrazinamide) 1,000 mg PO TTS [facility]; Protocol Last Admin: 06/28/18 12:20 Dose: 1,000 mg Pyridoxine HCl (Vitamin B6 50 Mg Tab) 50 mg PO DAILY [facility] Last Admin: 06/28/18 09:07 Dose: 50 mg Rifampin (Rifampin) 450 mg PO DAILY [facility]; Protocol Stop: 08/08/18 10:01 Last Admin: 06/28/18 16:30 Dose: 450 mg Sevelamer Carbonate (Renvela) 800 mg PO TIDCC [facility] Last Admin: 06/28/18 17:56 Dose: 800 mg - Labs Labs: 06/29/18 06:07 06/29/18 06:04 PT 11.8 SECONDS (9.7-12.2) 06/25/18 12:13 INR 1.1 06/25/18 12:13 APTT 88 SECONDS (21-34) H 06/25/18 12:13 - Constitutional Appears: No Acute Distress - Eye Exam Eye Exam: Normal appearance - ENT Exam ENT Exam: Mucous Membranes Moist - Neck Exam Neck Exam: Full ROM. absent: Lymphadenopathy - Respiratory Exam Respiratory Exam: Decreased Breath Sounds. absent: Rales, Rhonchi, Wheezes - Cardiovascular Exam Cardiovascular Exam: REGULAR RHYTHM, +S1, +S2, Murmur. absent: Gallop, JVD - GI/Abdominal Exam GI & Abdominal Exam: Soft. absent: Tenderness, Mass - Extremities Exam Extremities Exam: Full ROM, Normal Capillary Refill. absent: Calf Tenderness, Joint Swelling, Pedal Edema Assessment and Plan - Assessment and Plan (Free Text) Assessment: Large Pleural effusion s/p CT placement HTN, ESRD Cont RIPE / chest tube management Await diagnostic outcome
[2018-06-29] MEDS ORDERED: Vancomycin 1 gm/NS 200 ml 1 GM/200 ML BAG IVPB SCH (09:00)
[2018-06-29] MEDS ORDERED: Epoetin Alfa 10,000 unit/ml Dialysis IV SCH (09:00)
[2018-06-29] MEDS: Pantoprazole 40 mg EC Tab PO SCH (09:13)
--- NOTE | 2018-06-29 10:55 | RAD ---
Date of service: 06/29/2018 HISTORY: evaluation of lung reed COMPARISON: 06/28/2018. FINDINGS: The right-sided dialysis catheter terminates in the right atrium. LUNGS: Again seen is airspace disease in the right lower lobe. The left lung is clear. PLEURA: There is interval decrease in size of right pleural effusion with residual small effusion. Stable small left pleural effusion. Stable position of right pigtail chest tube overlying the right costophrenic angle. No pneumothorax. CARDIOVASCULAR: Stable cardiomegaly. No aortic atherosclerotic calcifications present. OSSEOUS STRUCTURES: Within normal limits for the patient's age. VISUALIZED UPPER ABDOMEN: Normal. OTHER FINDINGS: None. IMPRESSION: Stable position of right chest tube and right dialysis catheter. Interval decrease in size of right pleural effusion with residual small effusion. Patchy airspace disease in the right lower lobe may represent atelectasis/pneumonia. Persistent small left pleural effusion.
--- NOTE | 2018-06-29 14:06 | CP.PCM.PN ---
Subjective - Date & Time of Evaluation Date of Evaluation: 06/29/18 Time of Evaluation: 08:00 - Subjective Subjective: recurrent fevers/ infiltrates/ effusions AFB neg thus far ? Charlotte"s ? Vasculitis recultured echo to be done IV antibiotic added consider Rheum eval - sent IBAN, ANCA Objective - Vital Signs/Intake and Output Vital Signs (last 24 hours): Temp Pulse Resp BP Pulse Ox 100.9 F H 117 H 12 100/60 100 06/29/18 09:13 06/29/18 11:34 06/29/18 11:00 06/29/18 10:40 06/29/18 11:00 Intake and Output: 06/29/18 06/29/18 06:59 18:59 Intake Total 320 Output Total 60 Balance 260 - Medications Medications: Current Medications Acetaminophen (Tylenol 325mg Tab) 650 mg PO Q6 PRN PRN Reason: for fever Last Admin: 06/29/18 09:13 Dose: 650 mg Epoetin Milton (Procrit) 10,000 unit IV MWF [facility] Ethambutol HCl (Myambutol) 800 mg PO TTS [facility]; Protocol Last Admin: 06/28/18 12:20 Dose: 800 mg Vancomycin/Sodium Chloride (Vancomycin 1 Gm/Ns 200 Ml) 1 gm in 200 mls @ 133 ml s/hr IVPB MWF [facility]; Protocol Stop: 07/04/18 15:31 Isoniazid (Niazid) 300 mg PO DAILY [facility]; Protocol Stop: 08/08/18 10:01 Last Admin: 06/29/18 09:13 Dose: 300 mg Pantoprazole Sodium (Protonix Ec Tab) 40 mg PO DAILY [facility] Last Admin: 06/29/18 09:13 Dose: 40 mg Pyrazinamide (Pyrazinamide) 1,000 mg PO TTS [facility]; Protocol Last Admin: 06/28/18 12:20 Dose: 1,000 mg Pyridoxine HCl (Vitamin B6 50 Mg Tab) 50 mg PO DAILY [facility] Last Admin: 06/29/18 09:13 Dose: 50 mg Rifampin (Rifampin) 450 mg PO DAILY [facility]; Protocol Stop: 08/08/18 10:01 Last Admin: 06/29/18 09:13 Dose: 450 mg Sevelamer Carbonate (Renvela) 800 mg PO TIDCC [facility] Last Admin: 06/29/18 09:00 Dose: 800 mg - Labs Labs: 06/29/18 06:07 06/29/18 06:04 PT 11.8 SECONDS (9.7-12.2) 06/25/18 12:13 INR 1.1 06/25/18 12:13 APTT 88 SECONDS (21-34) H 06/25/18 12:13 - Constitutional Appears: Non-toxic, Cachectic, Chronically Ill - Head Exam Head Exam: NORMOCEPHALIC - Eye Exam Eye Exam: absent: Scleral icterus - ENT Exam ENT Exam: Mucous Membranes Dry - Neck Exam Neck Exam: absent: Lymphadenopathy - Respiratory Exam Respiratory Exam: Decreased Breath Sounds, Prolonged Expiratory Phase, Rhonchi - Cardiovascular Exam Cardiovascular Exam: REGULAR RHYTHM - GI/Abdominal Exam GI & Abdominal Exam: Distended, Soft - Rectal Exam Rectal Exam: Deferred - Exam Exam: NORMAL INSPECTION - Extremities Exam Extremities Exam: absent: Pedal Edema - Back Exam Back Exam: absent: CVA tenderness (L), CVA tenderness (R) - Neurological Exam Neurological Exam: Alert, Awake, CN II-XII Intact - Psychiatric Exam Psychiatric exam: Depressed - Skin Skin Exam: Dry Assessment and Plan (1) ESRD (end stage renal disease) Status: Acute (2) Pleural effusion Status: Acute - Assessment and Plan (Free Text) Assessment: recurrent fevers/ infiltrates/ effusions AFB neg thus far ? Charlotte"s ? Vasculitis recultured echo to be done IV antibiotic added consider Rheum eval - sent IBAN, ANCA discussed with Dr Mckee and Dr Allen on rounds
--- NOTE | 2018-06-29 15:23 | CP.PCM.PN ---
Subjective - Date & Time of Evaluation Date of Evaluation: 06/29/18 Time of Evaluation: 10:00 - Subjective Subjective: Patient seen and examined Still spiking fever Status post thoracentesis/pigtail catheter insertion Culture so far negative On anti-TB meds Objective - Vital Signs/Intake and Output Vital Signs (last 24 hours): Temp Pulse Resp BP Pulse Ox 97.8 F 110 H 11 L 97/60 L 100 06/29/18 13:55 06/29/18 14:23 06/29/18 14:23 06/29/18 14:55 06/29/18 14:23 Intake and Output: 06/29/18 06/29/18 06:59 18:59 Intake Total 320 Output Total 60 Balance 260 - Medications Medications: Current Medications Acetaminophen (Tylenol 325mg Tab) 650 mg PO Q6 PRN PRN Reason: for fever Last Admin: 06/29/18 09:13 Dose: 650 mg Epoetin Milton (Procrit) 10,000 unit IV MWF [facility] Last Admin: 06/29/18 14:23 Dose: 10,000 unit Ethambutol HCl (Myambutol) 800 mg PO TTS [facility]; Protocol Last Admin: 06/28/18 12:20 Dose: 800 mg Vancomycin/Sodium Chloride (Vancomycin 1 Gm/Ns 200 Ml) 1 gm in 200 mls @ 133 mls/hr IVPB MWF [facility]; Protocol Stop: 07/04/18 15:31 Isoniazid (Niazid) 300 mg PO DAILY [facility]; Protocol Stop: 08/08/18 10:01 Last Admin: 06/29/18 09:13 Dose: 300 mg Pantoprazole Sodium (Protonix Ec Tab) 40 mg PO DAILY [facility] Last Admin: 06/29/18 09:13 Dose: 40 mg Pyrazinamide (Pyrazinamide) 1,000 mg PO TTS [facility]; Protocol Last Admin: 06/28/18 12:20 Dose: 1,000 mg Pyridoxine HCl (Vitamin B6 50 Mg Tab) 50 mg PO DAILY [facility] Last Admin: 06/29/18 09:13 Dose: 50 mg Rifampin (Rifampin) 450 mg PO DAILY [facility]; Protocol Stop: 08/08/18 10:01 Last Admin: 06/29/18 09:13 Dose: 450 mg Sevelamer Carbonate (Renvela) 800 mg PO TIDCC [facility] Last Admin: 06/29/18 09:00 Dose: 800 mg - Labs Labs: 06/29/18 06:07 06/29/18 06:04 PT 11.8 SECONDS (9.7-12.2) 06/25/18 12:13 INR 1.1 06/25/18 12:13 APTT 88 SECONDS (21-34) H 06/25/18 12:13 - Head Exam Head Exam: ATRAUMATIC, NORMOCEPHALIC - ENT Exam ENT Exam: Mucous Membranes Moist - Neck Exam Neck Exam: Normal Inspection - Respiratory Exam Respiratory Exam: Decreased Breath Sounds - Cardiovascular Exam Cardiovascular Exam: REGULAR RHYTHM - GI/Abdominal Exam GI & Abdominal Exam: Soft Assessment and Plan (1) Pleural effusion Assessment & Plan: Status post pigtail catheter insertion Status post pleural biopsy with noncaseating granulomas On anti-TB meds Right lower lung infiltrate Started on vancomycin Follow-up culture and sensitivity Status: Acute (2) ESRD (end stage renal disease) Status: Acute
[2018-06-29] MEDS: Vancomycin 1 gm/NS 200 ml 1 GM/200 ML BAG IVPB SCH (17:30)
--- NOTE | 2018-06-29 21:59 | CARD ---
APPROVED REPORT Date of service: 06/28/2018 EKG Measurement Heart [id number] <Conclusion> Sinus tachycardia Otherwise normal ECG
[2018-06-29] MEDS: Meropenem 500 MG in Sodium Chloride 0.9% 100 ML IVPB SCH (22:23)
--- NOTE | 2018-06-29 23:25 | CP.PCM.PN ---
Subjective - Date & Time of Evaluation Date of Evaluation: 06/29/18 Time of Evaluation: 23:23 - Subjective Subjective: THORACIC SURGERY PROGRESS NOTE FOR DR. MAO Patient seen and examined at bedside in the ICU. Pt reports that she is breathing much better. Denies CP or SOB. Objective - Vital Signs/Intake and Output Vital Signs (last 24 hours): Temp Pulse Resp BP Pulse Ox 102.5 F H 135 H 16 116/64 100 06/29/18 20:41 06/29/18 20:00 06/29/18 19:00 06/29/18 18:53 06/29/18 19:00 Intake and Output: 06/29/18 06/30/18 18:59 06:59 Intake Total 680 Output Total 10 Balance 670 - Medications Medications: Current Medications Acetaminophen (Tylenol 325mg Tab) 650 mg PO Q6 PRN PRN Reason: for fever Last Admin: 06/29/18 19:41 Dose: 650 mg Epoetin Milton (Procrit) 10,000 unit IV MWF [facility] Last Admin: 06/29/18 14:23 Dose: 10,000 unit Ethambutol HCl (Myambutol) 800 mg PO TTS [facility]; Protocol Last Admin: 06/28/18 12:20 Dose: 800 mg Heparin Sodium (Porcine) (Heparin) 5,000 units SC Q12 [facility] Last Admin: 06/29/18 21:25 Dose: 5,000 units Vancomycin/Sodium Chloride (Vancomycin 1 Gm/Ns 200 Ml) 1 gm in 200 mls @ 133 mls/hr IVPB MWF [facility]; Protocol Stop: 07/04/18 15:31 Last Admin: 06/29/18 17:30 Dose: 133 mls/hr Meropenem 500 mg/ Sodium (Chloride) 100 mls @ 100 mls/hr IVPB Q12H [facility]; Protocol Last Admin: 06/29/18 22:23 Dose: 100 mls/hr Isoniazid (Niazid) 300 mg PO DAILY [facility]; Protocol Stop: 08/08/18 10:01 Last Admin: 06/29/18 09:13 Dose: 300 mg Pantoprazole Sodium (Protonix Ec Tab) 40 mg PO DAILY [facility] Last Admin: 06/29/18 09:13 Dose: 40 mg Pyrazinamide (Pyrazinamide) 1,000 mg PO TTS [facility]; Protocol Last Admin: 06/28/18 12:20 Dose: 1,000 mg Pyridoxine HCl (Vitamin B6 50 Mg Tab) 50 mg PO DAILY [facility] Last Admin: 06/29/18 09:13 Dose: 50 mg Rifampin (Rifampin) 450 mg PO DAILY [facility]; Protocol Stop: 08/08/18 10:01 Last Admin: 06/29/18 09:13 Dose: 450 mg Sevelamer Carbonate (Renvela) 800 mg PO TIDCC [facility] Last Admin: 06/29/18 17:21 Dose: 800 mg - Labs Labs: 06/29/18 06:07 06/29/18 06:04 PT 11.8 SECONDS (9.7-12.2) 06/25/18 12:13 INR 1.1 06/25/18 12:13 APTT 88 SECONDS (21-34) H 06/25/18 12:13 - Constitutional Appears: Non-toxic, No Acute Distress - Head Exam Head Exam: ATRAUMATIC, NORMAL INSPECTION - Respiratory Exam Respiratory Exam: NORMAL BREATHING PATTERN. absent: Respiratory Distress - Cardiovascular Exam Cardiovascular Exam: +S1, +S2 - GI/Abdominal Exam GI & Abdominal Exam: Soft. absent: Tenderness - Neurological Exam Neurological Exam: Alert, Awake, Oriented x3 - Psychiatric Exam Psychiatric exam: Normal Affect, Normal Mood Assessment and Plan - Assessment and Plan (Free Text) Assessment: 47F s/p R pleural drainage catheter insertion POD#2 for pleural fluid Plan: - Cytology negative for malignant cells - Pigtail w/ 560cc serous output over past 24 hours - Will continue to monitor drainage - FU AM CXR - Discussed plan with Dr. Vesta Recinos PGY-4
[2018-06-30 05:59] LABS: TOTAL PROTEIN PLEURAL FLUID 6.4 g/dL
[2018-06-30 06:18] LABS: BASO % 0.6 % (0.0-2.0); EOS # 0.2 K/uL (0.0-0.7); EOS % 5.4 % (0.0-4.0); HEMOGLOBIN 10.2 g/dL (11.0-16.0); LYMPH # 0.7 K/uL (1.0-4.3); LYMPH % 16.2 % (20.0-40.0); MEAN CELL VOLUME 98.2 fL (81.0-99.0); MEAN CORPUSCULAR HEMOGLOBIN 31.5 pg (27.0-31.0); MEAN CORPUSCULAR HGB CONC 32.1 g/dL (33.0-37.0); MEAN PLATELET VOLUME 8.3 fL (7.2-11.7); MONO # 0.4 K/uL (0.0-0.8); MONO % 9.9 % (0.0-10.0); NEUT # 2.7 K/uL (1.8-7.0); NEUT % 67.9 % (50.0-75.0); NRBC % 0.2 % (0.0-2.0); RBC 3.23 Mil/uL (3.80-5.20); RED CELL DISTRIBUTION WIDTH 16.6 % (11.5-14.5)
[2018-06-30 06:26] LABS: CEA PLEURAL FLUID 2.5 ng/mL (<10.0)
[2018-06-30 06:31] LABS: ALB/GLOB RATIO 0.8 (1.0-2.1); ALBUMIN 3.4 g/dL (3.5-5.0); ALT/SGPT < 6 U/L (9-52); AST/SGOT 50 U/L (14-36); BLOOD UREA NITROGEN 23 mg/dL (7-17); CALCIUM 9.3 mg/dl (8.6-10.4); GFR NON-AFRICAN AMERICAN 10
--- NOTE | 2018-06-30 08:36 | RAD ---
Date of service: 06/30/2018 HISTORY: check chest tube COMPARISON: No prior. FINDINGS: There is stable position of right pigtail chest tube terminating in the region of the costophrenic angle. Right-sided dialysis catheter terminates in the right atrium LUNGS: There is moderate pulmonary venous congestion. There is airspace disease in the right lower lobe subsegmental atelectasis in the left lower lobe. PLEURA: No change in small effusions, larger on the right. No pneumothorax CARDIOVASCULAR: Persistent mild cardiomegaly. No aortic atherosclerotic calcifications present. OSSEOUS STRUCTURES: Within normal limits for the patient's age. VISUALIZED UPPER ABDOMEN: Normal. OTHER FINDINGS: None. IMPRESSION: Stable position of right pigtail chest tube terminating in the region of the costophrenic angle. No change in mild cardiomegaly, pulmonary venous congestion and small effusions, larger on the right.
[2018-06-30] MEDS: Meropenem 500 MG in Sodium Chloride 0.9% 100 ML IVPB SCH ×2 (09:21→21:59)
[2018-06-30] MEDS: Pantoprazole 40 mg EC Tab PO SCH (09:46)
--- NOTE | 2018-06-30 10:28 | CP.PCM.PN ---
Subjective - Date & Time of Evaluation Date of Evaluation: 06/30/18 Time of Evaluation: 10:25 - Subjective Subjective: SURGERY NOTE FOR DR. REYES 47F seen and examined at bedside. Patient is comfortable, denies shortness of breath. Objective - Vital Signs/Intake and Output Vital Signs (last 24 hours): Temp Pulse Resp BP Pulse Ox 102.0 F H 118 H 16 167/87 H 98 06/30/18 10:06 06/30/18 08:00 06/29/18 19:00 06/30/18 08:00 06/30/18 08:00 Intake and Output: 06/30/18 06/30/18 06:59 18:59 Intake Total 400 Output Total 10 Balance 390 - Medications Medications: Current Medications Acetaminophen (Tylenol 325mg Tab) 650 mg PO Q6 PRN PRN Reason: for fever Last Admin: 06/30/18 10:06 Dose: 650 mg Epoetin Milton (Procrit) 10,000 unit IV MWF [facility] Last Admin: 06/29/18 14:23 Dose: 10,000 unit Ethambutol HCl (Myambutol) 800 mg PO TTS [facility]; Protocol Last Admin: 06/30/18 09:45 Dose: 800 mg Heparin Sodium (Porcine) (Heparin) 5,000 units SC Q12 [facility] Last Admin: 06/30/18 09:46 Dose: 5,000 units Vancomycin/Sodium Chloride (Vancomycin 1 Gm/Ns 200 Ml) 1 gm in 200 mls @ 133 mls/hr IVPB MWF [facility]; Protocol Stop: 07/04/18 15:31 Last Admin: 06/29/18 17:30 Dose: 133 mls/hr Meropenem 500 mg/ Sodium (Chloride) 100 mls @ 100 mls/hr IVPB Q12H [facility]; Protocol Last Admin: 06/29/18 22:23 Dose: 100 mls/hr Isoniazid (Niazid) 300 mg PO DAILY [facility]; Protocol Stop: 08/08/18 10:01 Last Admin: 06/30/18 10:24 Dose: 300 mg Pantoprazole Sodium (Protonix Ec Tab) 40 mg PO DAILY [facility] Last Admin: 06/30/18 09:46 Dose: 40 mg Pyrazinamide (Pyrazinamide) 1,000 mg PO TTS [facility]; Protocol Last Admin: 06/30/18 09:46 Dose: 1,000 mg Pyridoxine HCl (Vitamin B6 50 Mg Tab) 50 mg PO DAILY [facility] Last Admin: 06/30/18 09:45 Dose: 50 mg Rifampin (Rifampin) 450 mg PO DAILY [facility]; Protocol Stop: 08/08/18 10:01 Last Admin: 06/30/18 09:45 Dose: 450 mg Sevelamer Carbonate (Renvela) 800 mg PO TIDCC [facility] Last Admin: 06/30/18 08:20 Dose: 800 mg - Labs Labs: 06/30/18 06:09 06/30/18 06:09 PT 11.8 SECONDS (9.7-12.2) 06/25/18 12:13 INR 1.1 06/25/18 12:13 APTT 88 SECONDS (21-34) H 06/25/18 12:13 - Constitutional Appears: Non-toxic, No Acute Distress - Respiratory Exam Respiratory Exam: NORMAL BREATHING PATTERN Additional comments: Right tube in place 50cc/24hrs. no air leak - Cardiovascular Exam Cardiovascular Exam: REGULAR RHYTHM, +S1, +S2 - GI/Abdominal Exam GI & Abdominal Exam: Soft. absent: Distended, Firm, Guarding, Rigid, Tenderness, Rebound - Neurological Exam Neurological Exam: Alert, Awake Assessment and Plan - Assessment and Plan (Free Text) Assessment: 47F with Right pleural effusion with right pigtail in place POD#2 Plan: Monitor drain output Discussed with Dr. Vesta Toney, PGY3
--- NOTE | 2018-06-30 12:28 | CP.PCM.PN ---
Subjective - Date & Time of Evaluation Date of Evaluation: 06/30/18 Time of Evaluation: 12:25 - Subjective Subjective: pt seen and examined complaints of chills febrile no SOB chest tube output reduced no chest pain , no cough ROS- as per HPI, other than that 10 point RO S negative Objective - Vital Signs/Intake and Output Vital Signs (last 24 hours): Temp Pulse Resp BP Pulse Ox 102.0 F H 118 H 16 167/87 H 98 06/30/18 10:06 06/30/18 08:00 06/29/18 19:00 06/30/18 08:00 06/30/18 08:00 Intake and Output: 06/30/18 06/30/18 06:59 18:59 Intake Total 400 Output Total 10 Balance 390 - Medications Medications: Current Medications Acetaminophen (Tylenol 325mg Tab) 650 mg PO Q6 PRN PRN Reason: for fever Last Admin: 06/30/18 10:06 Dose: 650 mg Epoetin Milton (Procrit) 10,000 unit IV MWF [facility] Last Admin: 06/29/18 14:23 Dose: 10,000 unit Ethambutol HCl (Myambutol) 800 mg PO TTS [facility]; Protocol Heparin Sodium (Porcine) (Heparin) 5,000 units SC Q12 [facility] Last Admin: 06/30/18 09:46 Dose: 5,000 units Vancomycin/Sodium Chloride (Vancomycin 1 Gm/Ns 200 Ml) 1 gm in 200 mls @ 133 mls/hr IVPB MWF [facility]; Protocol Stop: 07/04/18 15:31 Last Admin: 06/29/18 17:30 Dose: 133 mls/hr Meropenem 500 mg/ Sodium (Chloride) 100 mls @ 100 mls/hr IVPB Q12H [facility]; Protocol Last Admin: 06/30/18 09:21 Dose: 100 mls/hr Isoniazid (Niazid) 300 mg PO DAILY [facility]; Protocol Stop: 08/05/18 10:01 Pantoprazole Sodium (Protonix Ec Tab) 40 mg PO DAILY [facility] Last Admin: 06/30/18 09:46 Dose: 40 mg Pyrazinamide (Pyrazinamide) 1,000 mg PO TTS [facility]; Protocol Pyridoxine HCl (Vitamin B6 50 Mg Tab) 50 mg PO DAILY [facility] Rifampin (Rifampin) 450 mg PO DAILY [facility]; Protocol Stop: 08/05/18 10:01 Sevelamer Carbonate (Renvela) 800 mg PO TIDCC [facility] Last Admin: 06/30/18 08:20 Dose: 800 mg - Labs Labs: 06/30/18 06:09 06/30/18 06:09 PT 11.8 SECONDS (9.7-12.2) 06/25/18 12:13 INR 1.1 06/25/18 12:13 APTT 88 SECONDS (21-34) H 06/25/18 12:13 - Constitutional Appears: Non-toxic, Chronically Ill - Head Exam Head Exam: ATRAUMATIC, NORMOCEPHALIC - Eye Exam Eye Exam: EOMI, PERRL - ENT Exam ENT Exam: Mucous Membranes Moist - Neck Exam Neck Exam: Full ROM - Respiratory Exam Respiratory Exam: Clear to Ausculation Bilateral. absent: Rhonchi, Wheezes Additional comments: decreased BS at bases - Cardiovascular Exam Cardiovascular Exam: REGULAR RHYTHM, +S1, +S2 Additional comments: tachycardic - GI/Abdominal Exam GI & Abdominal Exam: Soft. absent: Distended, Tenderness - Extremities Exam Extremities Exam: Full ROM. absent: Pedal Edema - Neurological Exam Neurological Exam: Alert, Awake, Oriented x3 - Psychiatric Exam Psychiatric exam: Depressed, Normal Affect - Skin Skin Exam: Normal Color, Warm Assessment and Plan (1) ESRD (end stage renal disease) Status: Acute (2) Pleural effusion Status: Acute (3) SOB (shortness of breath) Status: Acute (4) Tachycardia Status: Acute (5) HTN (hypertension) Status: Chronic (6) Anemia Status: Chronic (7) Diabetes Status: Chronic - Assessment and Plan (Free Text) Plan: HD TTS, HD today all cultures negative so far chest tube output minimal- management as per pulmonary reculture for fever Abx as per ID
--- NOTE | 2018-06-30 17:16 | CP.PCM.PN ---
Subjective - Date & Time of Evaluation Date of Evaluation: 06/30/18 Time of Evaluation: 11:00 - Subjective Subjective: Patient seen and examined at bedside, febrile at 102 degrees. Patient is being treated with anti-TB medications, steroids, yet is still spiking fevers. Physical Exam Gen: alert and awake, no acute distress Cardio: RRR, no murmur Pulm: decreased breath sounds, no accessory muscle use GI: soft, nontender A&P 1. Pleural effusion -Status post pigtail catheter insertion -Status post pleural biopsy with noncaseating granulomas -Chest x-ray 06/30/18: stable position of right pigtail chest tube; pulmonary venous congestion and small effusions larger on right Mycobacteria culture 06/28/18: no acid fast bacilli seen -Blood culture 06/26/18: no growth to date -Pleural fluid 06/27/18: no growth after 24 hours; gram stain no organisms seen -Adenosine Deaminase: results pending -Recommend Meropenem for gram negative coverage -Continue vancomycin -Continue anti-TB medications -Consider open lung biopsy 2. ESRD -Hemodialysis Objective - Vital Signs/Intake and Output Vital Signs (last 24 hours): Temp Pulse Resp BP Pulse Ox 98 F 119 H 25 H 128/86 100 06/30/18 16:45 06/30/18 16:45 06/30/18 16:45 06/30/18 16:45 06/30/18 16:45 Intake and Output: 06/30/18 06/30/18 06:59 18:59 Intake Total 400 Output Total 10 Balance 390 - Medications Medications: Current Medications Acetaminophen (Tylenol 325mg Tab) 650 mg PO Q6 PRN PRN Reason: for fever Last Admin: 06/30/18 10:06 Dose: 650 mg Epoetin Milton (Procrit) 10,000 unit IV TTS [facility] Ethambutol HCl (Myambutol) 800 mg PO TTS [facility]; Protocol Heparin Sodium (Porcine) (Heparin) 5,000 units SC Q12 [facility] Last Admin: 06/30/18 09:46 Dose: 5,000 units Vancomycin/Sodium Chloride (Vancomycin 1 Gm/Ns 200 Ml) 1 gm in 200 mls @ 133 mls/hr IVPB MWF [facility]; Protocol Stop: 07/04/18 15:31 Last Admin: 06/29/18 17:30 Dose: 133 mls/hr Meropenem 500 mg/ Sodium (Chloride) 100 mls @ 100 mls/hr IVPB Q12H [facility]; Protocol Last Admin: 06/30/18 09:21 Dose: 100 mls/hr Isoniazid (Niazid) 300 mg PO DAILY [facility]; Protocol Stop: 08/05/18 10:01 Pantoprazole Sodium (Protonix Ec Tab) 40 mg PO DAILY [facility] Last Admin: 06/30/18 09:46 Dose: 40 mg Pyrazinamide (Pyrazinamide) 1,000 mg PO TTS [facility]; Protocol Pyridoxine HCl (Vitamin B6 50 Mg Tab) 50 mg PO DAILY [facility] Rifampin (Rifampin) 450 mg PO DAILY [facility]; Protocol Stop: 08/05/18 10:01 Sevelamer Carbonate (Renvela) 800 mg PO TIDCC [facility] Last Admin: 06/30/18 17:10 Dose: 800 mg - Labs Labs: 06/30/18 06:09 06/30/18 06:09 PT 11.8 SECONDS (9.7-12.2) 06/25/18 12:13 INR 1.1 06/25/18 12:13 APTT 88 SECONDS (21-34) H 06/25/18 12:13 Assessment and Plan (1) Pleural effusion Status: Acute (2) ESRD (end stage renal disease) Status: Acute
--- NOTE | 2018-06-30 18:19 | CP.PCM.PN ---
Subjective - Date & Time of Evaluation Date of Evaluation: 06/30/18 Time of Evaluation: 09:00 - Subjective Subjective: persistent fevers despite IV antibotics Procalcitonin Hi Adenosin Deaminase 36 (H) Cultures so far neg YELITZA levels wnl ANCA levels neg Objective - Vital Signs/Intake and Output Vital Signs (last 24 hours): Temp Pulse Resp BP Pulse Ox 98 F 119 H 25 H 128/86 100 06/30/18 16:45 06/30/18 16:45 06/30/18 16:45 06/30/18 16:45 06/30/18 16:45 Intake and Output: 06/30/18 06/30/18 06:59 18:59 Intake Total 400 Output Total 10 Balance 390 - Medications Medications: Current Medications Acetaminophen (Tylenol 325mg Tab) 650 mg PO Q6 PRN PRN Reason: for fever Last Admin: 06/30/18 10:06 Dose: 650 mg Epoetin Milton (Procrit) 10,000 unit IV TTS [facility] Ethambutol HCl (Myambutol) 800 mg PO TTS [facility]; Protocol Heparin Sodium (Porcine) (Heparin) 5,000 units SC Q12 [facility] Last Admin: 06/30/18 09:46 Dose: 5,000 units Vancomycin/Sodium Chloride (Vancomycin 1 Gm/Ns 200 Ml) 1 gm in 200 mls @ 133 mls/hr IVPB MWF [facility]; Protocol Stop: 07/04/18 15:31 Last Admin: 06/29/18 17:30 Dose: 133 mls/hr Meropenem 500 mg/ Sodium (Chloride) 100 mls @ 100 mls/hr IVPB Q12H [facility]; Pro tocol Last Admin: 06/30/18 09:21 Dose: 100 mls/hr Isoniazid (Niazid) 300 mg PO DAILY [facility]; Protocol Stop: 08/05/18 10:01 Pantoprazole Sodium (Protonix Ec Tab) 40 mg PO DAILY [facility] Last Admin: 06/30/18 09:46 Dose: 40 mg Pyrazinamide (Pyrazinamide) 1,000 mg PO TTS [facility]; Protocol Pyridoxine HCl (Vitamin B6 50 Mg Tab) 50 mg PO DAILY [facility] Rifampin (Rifampin) 450 mg PO DAILY [facility]; Protocol Stop: 08/05/18 10:01 Sevelamer Carbonate (Renvela) 800 mg PO TIDCC [facility] Last Admin: 06/30/18 17:10 Dose: 800 mg - Labs Labs: 06/30/18 06:09 06/30/18 06:09 PT 11.8 SECONDS (9.7-12.2) 06/25/18 12:13 INR 1.1 06/25/18 12:13 APTT 88 SECONDS (21-34) H 06/25/18 12:13 - Constitutional Appears: Non-toxic, Cachectic, Chronically Ill - Head Exam Head Exam: ATRAUMATIC, NORMOCEPHALIC - Eye Exam Eye Exam: PERRL. absent: Scleral icterus - ENT Exam ENT Exam: Mucous Membranes Dry - Neck Exam Neck Exam: absent: Lymphadenopathy - Respiratory Exam Respiratory Exam: Decreased Breath Sounds - Cardiovascular Exam Cardiovascular Exam: REGULAR RHYTHM - GI/Abdominal Exam GI & Abdominal Exam: Distended, Soft. absent: Mass - Rectal Exam Rectal Exam: Deferred - Exam Exam: NORMAL INSPECTION - Back Exam Back Exam: absent: CVA tenderness (L), CVA tenderness (R) - Neurological Exam Neurological Exam: Alert, Awake, CN II-XII Intact, Oriented x3 Neuro motor strength exam: Left Upper Extremity: 4, Right Upper Extremity: 4, Left Lower Extremity: 4, Right Lower Extremity: 4 - Psychiatric Exam Psychiatric exam: Depressed - Skin Skin Exam: Dry Assessment and Plan (1) ESRD (end stage renal disease) Status: Acute (2) Pleural effusion Status: Acute (3) Fever Status: Acute (4) Hypertensive chronic kidney disease with stage 5 chronic kidney disease or e nd stage renal disease Status: Acute (5) Pneumonia Status: Acute (6) ESRD (end stage renal disease) on dialysis Status: Chronic - Assessment and Plan (Free Text) Assessment: On Vanco / Merrem for HCAP as well as TB meds If fever persists and no response to empiric rx may need Lung Bx Discussed on rounds with Dr Allen
--- NOTE | 2018-06-30 18:54 | CP.PCM.PN ---
Subjective - Date & Time of Evaluation Date of Evaluation: 06/30/18 Time of Evaluation: 18:52 - Subjective Subjective: C: c/o weaknes and fever. Right Chest tube noted Objective - Vital Signs/Intake and Output Vital Signs (last 24 hours): Temp Pulse Resp BP Pulse Ox 98 F 119 H 25 H 128/86 100 06/30/18 16:45 06/30/18 16:45 06/30/18 16:45 06/30/18 16:45 06/30/18 16:45 Intake and Output: 06/30/18 06/30/18 06:59 18:59 Intake Total 400 400 Output Total 10 10 Balance 390 390 - Medications Medications: Current Medications Acetaminophen (Tylenol 325mg Tab) 650 mg PO Q6 PRN PRN Reason: for fever Last Admin: 06/30/18 10:06 Dose: 650 mg Epoetin Milton (Procrit) 10,000 unit IV TTS [facility] Ethambutol HCl (Myambutol) 800 mg PO TTS [facility]; Protocol Heparin Sodium (Porcine) (Heparin) 5,000 units SC Q12 [facility] Last Admin: 06/30/18 09:46 Dose: 5,000 units Vancomycin/Sodium Chloride (Vancomycin 1 Gm/Ns 200 Ml) 1 gm in 200 mls @ 133 mls/hr IVPB MWF [facility]; Protocol Stop: 07/04/18 15:31 Last Admin: 06/29/18 17:30 Dose: 133 mls/hr Meropenem 500 mg/ Sodium (Chloride) 100 mls @ 100 mls/hr IVPB Q12H [facility]; Protocol Last Admin: 06/30/18 09:21 Dose: 100 mls/hr Isoniazid (Niazid) 300 mg PO DAILY [facility]; Protocol Stop: 08/05/18 10:01 Pantoprazole Sodium (Protonix Ec Tab) 40 mg PO DAILY [facility] Last Admin: 06/30/18 09:46 Dose: 40 mg Pyrazinamide (Pyrazinamide) 1,000 mg PO TTS [facility]; Protocol Pyridoxine HCl (Vitamin B6 50 Mg Tab) 50 mg PO DAILY [facility] Rifampin (Rifampin) 450 mg PO DAILY [facility]; Protocol Stop: 08/05/18 10:01 Sevelamer Carbonate (Renvela) 800 mg PO TIDCC [facility] Last Admin: 06/30/18 17:10 Dose: 800 mg - Labs Labs: 06/30/18 06:09 06/30/18 06:09 PT 11.8 SECONDS (9.7-12.2) 06/25/18 12:13 INR 1.1 06/25/18 12:13 APTT 88 SECONDS (21-34) H 06/25/18 12:13 - Constitutional Appears: Chronically Ill - Head Exam Head Exam: NORMAL INSPECTION - Eye Exam Eye Exam: Normal appearance - Neck Exam Neck Exam: Normal Inspection - Respiratory Exam Respiratory Exam: Decreased Breath Sounds (right chest tube) - Cardiovascular Exam Cardiovascular Exam: Tachycardia - GI/Abdominal Exam GI & Abdominal Exam: Soft - Rectal Exam Rectal Exam: Deferred - Extremities Exam Extremities Exam: absent: Pedal Edema - Neurological Exam Neurological Exam: Alert Assessment and Plan (1) Pleural effusion Status: Acute (2) Tachycardia Status: Acute (3) ESRD (end stage renal disease) on dialysis Status: Chronic (4) HTN (hypertension) Status: Chronic (5) Fever Status: Acute - Assessment and Plan (Free Text) Assessment: A?P: Continue medications. Continue Dialysis
[2018-07-01 06:05] LABS: BASO % 0.6 % (0.0-2.0); EOS # 0.2 K/uL (0.0-0.7); EOS % 4.7 % (0.0-4.0); HEMOGLOBIN 9.6 g/dL (11.0-16.0); LYMPH # 0.6 K/uL (1.0-4.3); LYMPH % 14.6 % (20.0-40.0); MEAN CELL VOLUME 97.3 fL (81.0-99.0); MEAN CORPUSCULAR HEMOGLOBIN 30.8 pg (27.0-31.0); MEAN CORPUSCULAR HGB CONC 31.7 g/dL (33.0-37.0); MEAN PLATELET VOLUME 8.3 fL (7.2-11.7); MONO # 0.4 K/uL (0.0-0.8); MONO % 10.2 % (0.0-10.0); NEUT # 2.7 K/uL (1.8-7.0); NEUT % 69.9 % (50.0-75.0); NRBC % 0.1 % (0.0-2.0); RBC 3.12 Mil/uL (3.80-5.20); RED CELL DISTRIBUTION WIDTH 16.4 % (11.5-14.5); WHITE BLOOD COUNT 3.9 K/uL (4.8-10.8)
[2018-07-01 06:18] LABS: ALB/GLOB RATIO 0.8 (1.0-2.1); ALBUMIN 3.2 g/dL (3.5-5.0); ALT/SGPT < 6 U/L (9-52); AST/SGOT 42 U/L (14-36); BLOOD UREA NITROGEN 16 mg/dL (7-17); CALCIUM 9.3 mg/dl (8.6-10.4); GFR NON-AFRICAN AMERICAN 12
--- NOTE | 2018-07-01 07:22 | CP.PCM.PN ---
Subjective - Date & Time of Evaluation Date of Evaluation: 07/01/18 Time of Evaluation: 07:19 - Subjective Subjective: SURGERY NOTE FOR DR. MAO 47F seen and examined at bedside. Patient denies any shortness of breath. Explained to patient that she will be getting an operation next week for lung biopsy. Objective - Vital Signs/Intake and Output Vital Signs (last 24 hours): Temp Pulse Resp BP Pulse Ox 98.8 F 107 H 19 120/64 97 07/01/18 04:00 07/01/18 04:00 07/01/18 04:00 07/01/18 04:00 07/01/18 04:00 Intake and Output: 07/01/18 07/01/18 06:59 18:59 Intake Total 350 Output Total 40 Balance 310 - Medications Medications: Current Medications Acetaminophen (Tylenol 325mg Tab) 650 mg PO Q6 PRN PRN Reason: for fever Last Admin: 07/01/18 05:45 Dose: 650 mg Epoetin Milton (Procrit) 10,000 unit IV TTS [facility] Ethambutol HCl (Myambutol) 800 mg PO TTS [facility]; Protocol Heparin Sodium (Porcine) (Heparin) 5,000 units SC Q12 [facility] Last Admin: 06/30/18 21:59 Dose: 5,000 units Vancomycin/Sodium Chloride (Vancomycin 1 Gm/Ns 200 Ml) 1 gm in 200 mls @ 133 mls/hr IVPB MWF [facility]; Protocol Stop: 07/04/18 15:31 Last Admin: 06/29/18 17:30 Dose: 133 mls/hr Meropenem 500 mg/ Sodium (Chloride) 100 mls @ 100 mls/hr IVPB Q12H [facility]; Protocol Last Admin: 06/30/18 21:59 Dose: 100 mls/hr Isoniazid (Niazid) 300 mg PO DAILY [facility]; Protocol Stop: 08/05/18 10:01 Pantoprazole Sodium (Protonix Ec Tab) 40 mg PO DAILY [facility] Last Admin: 06/30/18 09:46 Dose: 40 mg Pyrazinamide (Pyrazinamide) 1,000 mg PO TTS [facility]; Protocol Pyridoxine HCl (Vitamin B6 50 Mg Tab) 50 mg PO DAILY [facility] Rifampin (Rifampin) 450 mg PO DAILY [facility]; Protocol Stop: 08/05/18 10:01 Sevelamer Carbonate (Renvela) 800 mg PO TIDCC [facility] Last Admin: 06/30/18 17:10 Dose: 800 mg - Labs Labs: 07/01/18 05:59 07/01/18 05:55 PT 11.8 SECONDS (9.7-12.2) 06/25/18 12:13 INR 1.1 06/25/18 12:13 APTT 88 SECONDS (21-34) H 06/25/18 12:13 - Constitutional Appears: Non-toxic, No Acute Distress - Respiratory Exam Respiratory Exam: NORMAL BREATHING PATTERN Additional comments: right pigtail catheter in place 140cc/24hrs serous fluid, no air leak - Cardiovascular Exam Cardiovascular Exam: REGULAR RHYTHM, +S1, +S2 - GI/Abdominal Exam GI & Abdominal Exam: Rigid, Soft. absent: Distended, Firm, Guarding, Tenderness, Rebound - Extremities Exam Extremities Exam: absent: Pedal Edema, Tenderness - Neurological Exam Neurological Exam: Alert, Awake Assessment and Plan - Assessment and Plan (Free Text) Assessment: 47F with right sided pleural effusion s/p pigtail catheter insertion Plan: - monitor catheter output - plan for right VATs, biopsy of right lung Further recs discuss with Dr. Vesta Toney, PGY3
--- NOTE | 2018-07-01 08:15 | CP.PCM.PN ---
Subjective - Date & Time of Evaluation Date of Evaluation: 07/01/18 Time of Evaluation: 08:10 - Subjective Subjective: Pt want to go to the floor. No CP, no SOB, no edema, (+) min cough no n/v, no diarrhea. Objective - Vital Signs/Intake and Output Vital Signs (last 24 hours): Temp Pulse Resp BP Pulse Ox 98.8 F 107 H 19 120/64 97 07/01/18 04:00 07/01/18 04:00 07/01/18 04:00 07/01/18 04:00 07/01/18 04:00 Intake and Output: 07/01/18 07/01/18 06:59 18:59 Intake Total 350 Output Total 40 Balance 310 - Medications Medications: Current Medications Acetaminophen (Tylenol 325mg Tab) 650 mg PO Q6 PRN PRN Reason: for fever Last Admin: 07/01/18 05:45 Dose: 650 mg Epoetin Milton (Procrit) 10,000 unit IV TTS [facility] Ethambutol HCl (Myambutol) 800 mg PO TTS [facility]; Protocol Heparin Sodium (Porcine) (Heparin) 5,000 units SC Q12 [facility] Last Admin: 06/30/18 21:59 Dose: 5,000 units Vancomycin/Sodium Chloride (Vancomycin 1 Gm/Ns 200 Ml) 1 gm in 200 mls @ 133 mls/hr IVPB MWF [facility]; Protocol Stop: 07/04/18 15:31 Last Admin: 06/29/18 17:30 Dose: 133 mls/hr Meropenem 500 mg/ Sodium (Chloride) 100 mls @ 100 mls/hr IVPB Q12H [facility]; Protocol Last Admin: 06/30/18 21:59 Dose: 100 mls/hr Isoniazid (Niazid) 300 mg PO DAILY [facility]; Protocol Stop: 08/05/18 10:01 Pantoprazole Sodium (Protonix Ec Tab) 40 mg PO DAILY [facility] Last Admin: 06/30/18 09:46 Dose: 40 mg Pyrazinamide (Pyrazinamide) 1,000 mg PO TTS [facility]; Protocol Pyridoxine HCl (Vitamin B6 50 Mg Tab) 50 mg PO DAILY [facility] Rifampin (Rifampin) 450 mg PO DAILY [facility]; Protocol Stop: 08/05/18 10:01 Sevelamer Carbonate (Renvela) 800 mg PO TIDCC [facility] Last Admin: 07/01/18 07:35 Dose: 800 mg - Labs Labs: 07/01/18 05:59 07/01/18 05:55 PT 11.8 SECONDS (9.7-12.2) 06/25/18 12:13 INR 1.1 06/25/18 12:13 APTT 88 SECONDS (21-34) H 06/25/18 12:13 - Constitutional Appears: No Acute Distress - Eye Exam Eye Exam: Normal appearance - ENT Exam ENT Exam: Mucous Membranes Moist - Neck Exam Neck Exam: Full ROM. absent: Lymphadenopathy, Normal Inspection - Respiratory Exam Respiratory Exam: Decreased Breath Sounds. absent: Rales, Rhonchi, Wheezes - Cardiovascular Exam Cardiovascular Exam: REGULAR RHYTHM, +S1, +S2. absent: Gallop, JVD - GI/Abdominal Exam GI & Abdominal Exam: Soft. absent: Tenderness, Mass - Extremities Exam Extremities Exam: Full ROM, Normal Capillary Refill. absent: Calf Tenderness, Joint Swelling, Pedal Edema Assessment and Plan - Assessment and Plan (Free Text) Assessment: Large Effusion s/p CT; HRN, ESRD Cont RIPE/ Supportive care Agree w/ Lung Bx
--- NOTE | 2018-07-01 08:30 | RAD ---
Date of service: 07/01/2018 HISTORY: pigtail, pleural effusion COMPARISON: 06/30/2018. FINDINGS: Stable position of the right dialysis catheter terminating in the right atrium. The right pigtail chest tube is also stable in position overlying the right costophrenic angle. LUNGS: Interval mild improved aeration in the lungs with residual discoid atelectasis in the right lower lobe. PLEURA: No change in small effusions. No pneumothorax. CARDIOVASCULAR: The heart is normal in size. No aortic atherosclerotic calcifications present. OSSEOUS STRUCTURES: Within normal limits for the patient's age. VISUALIZED UPPER ABDOMEN: Normal. OTHER FINDINGS: None. IMPRESSION: Interval mild improved aeration in the lungs with residual discoid atelectasis in the right lower lobe. No change in small effusions. Stable position of right chest tube.
[2018-07-01] MEDS: Meropenem 500 MG in Sodium Chloride 0.9% 100 ML IVPB SCH ×2 (10:00→22:01)
[2018-07-01] MEDS: Pantoprazole 40 mg EC Tab PO SCH (10:00)
[2018-07-01] MEDS: Vancomycin 1 gm/NS 200 ml 1 GM/200 ML BAG IVPB SCH (10:01)
--- NOTE | 2018-07-01 11:19 | CP.PCM.PN ---
Subjective - Date & Time of Evaluation Date of Evaluation: 07/01/18 Time of Evaluation: 08:20 - Subjective Subjective: Patient seen and examined Spiked temperature last night Denies shortness of breath Slight cough Objective - Vital Signs/Intake and Output Vital Signs (last 24 hours): Temp Pulse Resp BP Pulse Ox 97.9 F 94 H 17 97/59 L 100 07/01/18 08:00 07/01/18 08:00 07/01/18 08:00 07/01/18 08:00 07/01/18 08:00 Intake and Output: 07/01/18 07/01/18 06:59 18:59 Intake Total 350 Output Total 40 Balance 310 - Medications Medications: Current Medications Acetaminophen (Tylenol 325mg Tab) 650 mg PO Q6 PRN PRN Reason: for fever Last Admin: 07/01/18 05:45 Dose: 650 mg Epoetin Milton (Procrit) 10,000 unit IV TTS [facility] Ethambutol HCl (Myambutol) 800 mg PO TTS [facility]; Protocol Heparin Sodium (Porcine) (Heparin) 5,000 units SC Q12 [facility] Last Admin: 07/01/18 09:59 Dose: 5,000 units Vancomycin/Sodium Chloride (Vancomycin 1 Gm/Ns 200 Ml) 1 gm in 200 mls @ 133 mls/hr IVPB MWF [facility]; Protocol Stop: 07/04/18 15:31 Last Admin: 07/01/18 10:01 Dose: 133 mls/hr Meropenem 500 mg/ Sodium (Chloride) 100 mls @ 100 mls/hr IVPB Q12H [facility]; Protocol Last Admin: 07/01/18 10:00 Dose: 100 mls/hr Isoniazid (Niazid) 300 mg PO DAILY [facility]; Protocol Stop: 08/05/18 10:01 Pantoprazole Sodium (Protonix Ec Tab) 40 mg PO DAILY [facility] Last Admin: 07/01/18 10:00 Dose: 40 mg Pyrazinamide (Pyrazinamide) 1,000 mg PO TTS [facility]; Protocol Pyridoxine HCl (Vitamin B6 50 Mg Tab) 50 mg PO DAILY [facility] Last Admin: 07/01/18 10:02 Dose: 50 mg Rifampin (Rifampin) 450 mg PO DAILY [facility]; Protocol Stop: 08/05/18 10:01 Last Admin: 07/01/18 10:01 Dose: 450 mg Sevelamer Carbonate (Renvela) 800 mg PO TIDCC [facility] Last Admin: 07/01/18 07:35 Dose: 800 mg - Labs Labs: 07/01/18 05:59 07/01/18 05:55 PT 11.8 SECONDS (9.7-12.2) 06/25/18 12:13 INR 1.1 06/25/18 12:13 APTT 88 SECONDS (21-34) H 06/25/18 12:13 - Head Exam Head Exam: ATRAUMATIC, NORMOCEPHALIC - ENT Exam ENT Exam: Mucous Membranes Moist - Neck Exam Neck Exam: Normal Inspection - Respiratory Exam Respiratory Exam: Rales - Cardiovascular Exam Cardiovascular Exam: REGULAR RHYTHM - GI/Abdominal Exam GI & Abdominal Exam: Soft, Normal Bowel Sounds Assessment and Plan (1) Pleural effusion Assessment & Plan: Status post pigtail catheter insertion Remains febrile Will need lung biopsy Continue antibiotics Continue anti-TB medication Status: Acute (2) ESRD (end stage renal disease) Status: Acute
--- NOTE | 2018-07-01 13:32 | CP.PCM.PN ---
Subjective - Date & Time of Evaluation Date of Evaluation: 07/01/18 Time of Evaluation: 13:29 - Subjective Subjective: in chair comfortable no distress no SOB fever yesterday all cultures negative so far on Abx and anti TB meds had HD yesterday Rest 10 point ROS negative Objective - Vital Signs/Intake and Output Vital Signs (last 24 hours): Temp Pulse Resp BP Pulse Ox 98.1 F 114 H 21 101/63 98 07/01/18 12:00 07/01/18 12:00 07/01/18 12:00 07/01/18 12:00 07/01/18 12:00 Intake and Output: 07/01/18 07/01/18 06:59 18:59 Intake Total 350 Output Total 40 Balance 310 - Medications Medications: Current Medications Acetaminophen (Tylenol 325mg Tab) 650 mg PO Q6 PRN PRN Reason: for fever Last Admin: 07/01/18 05:45 Dose: 650 mg Epoetin Milton (Procrit) 10,000 unit IV TTS [facility] Ethambutol HCl (Myambutol) 800 mg PO TTS [facility]; Protocol Heparin Sodium (Porcine) (Heparin) 5,000 units SC Q12 [facility] Last Admin: 07/01/18 09:59 Dose: 5,000 units Vancomycin/Sodium Chloride (Vancomycin 1 Gm/Ns 200 Ml) 1 gm in 200 mls @ 133 mls/hr IVPB MWF [facility]; Protocol Stop: 07/04/18 15:31 Last Admin: 07/01/18 10:01 Dose: 133 mls/hr Meropenem 500 mg/ Sodium (Chloride) 100 mls @ 100 mls/hr IVPB Q12H [facility]; Protocol Last Admin: 07/01/18 10:00 Dose: 100 mls/hr Isoniazid (Niazid) 300 mg PO DAILY [facility]; Protocol Stop: 08/05/18 10:01 Last Admin: 07/01/18 13:22 Dose: 300 mg Pantoprazole Sodium (Protonix Ec Tab) 40 mg PO DAILY [facility] Last Admin: 07/01/18 10:00 Dose: 40 mg Pyrazinamide (Pyrazinamide) 1,000 mg PO TTS [facility]; Protocol Pyridoxine HCl (Vitamin B6 50 Mg Tab) 50 mg PO DAILY [facility] Last Admin: 07/01/18 10:02 Dose: 50 mg Rifampin (Rifampin) 450 mg PO DAILY [facility]; Protocol Stop: 08/05/18 10:01 Last Admin: 07/01/18 10:01 Dose: 450 mg Sevelamer Carbonate (Renvela) 800 mg PO TIDCC [facility] Last Admin: 07/01/18 12:29 Dose: 800 mg - Labs Labs: 07/01/18 05:59 07/01/18 05:55 PT 11.8 SECONDS (9.7-12.2) 06/25/18 12:13 INR 1.1 06/25/18 12:13 APTT 88 SECONDS (21-34) H 06/25/18 12:13 - Constitutional Appears: Non-toxic, Chronically Ill - Head Exam Head Exam: ATRAUMATIC, NORMOCEPHALIC - Eye Exam Eye Exam: EOMI, PERRL - ENT Exam ENT Exam: Mucous Membranes Moist - Neck Exam Neck Exam: Full ROM - Respiratory Exam Respiratory Exam: Clear to Ausculation Bilateral. absent: Rhonchi, Wheezes Additional comments: pig tail catheter right side - Cardiovascular Exam Cardiovascular Exam: REGULAR RHYTHM, +S1, +S2 - GI/Abdominal Exam GI & Abdominal Exam: Soft. absent: Tenderness - Extremities Exam Extremities Exam: Full ROM. absent: Pedal Edema - Neurological Exam Neurological Exam: Alert, Awake, Oriented x3 - Psychiatric Exam Psychiatric exam: Depressed, Normal Affect - Skin Skin Exam: Normal Color, Warm Assessment and Plan (1) ESRD (end stage renal disease) Status: Acute (2) Pleural effusion Status: Acute (3) SOB (shortness of breath) Status: Acute (4) Tachycardia Status: Acute (5) HTN (hypertension) Status: Chronic (6) Anemia Status: Chronic (7) Diabetes Status: Chronic - Assessment and Plan (Free Text) Plan: HD in AM, TTS schedule continue ABx fevers- ? etiology hemodynamically stable potassium level improved
[2018-07-01 15:47] LABS: ANCA SCREEN NEGATIVE (NEGATIVE)
--- NOTE | 2018-07-01 17:20 | CP.PCM.PN ---
Subjective - Date & Time of Evaluation Date of Evaluation: 07/01/18 Time of Evaluation: 07:00 - Subjective Subjective: t max lower chest tube in place nad Objective - Vital Signs/Intake and Output Vital Signs (last 24 hours): Temp Pulse Resp BP Pulse Ox 98.1 F 114 H 21 101/63 98 07/01/18 12:00 07/01/18 12:00 07/01/18 12:00 07/01/18 12:00 07/01/18 12:00 Intake and Output: 07/01/18 07/01/18 06:59 18:59 Intake Total 350 Output Total 40 Balance 310 - Medications Medications: Current Medications Acetaminophen (Tylenol 325mg Tab) 650 mg PO Q6 PRN PRN Reason: for fever Last Admin: 07/01/18 05:45 Dose: 650 mg Epoetin Milton (Procrit) 10,000 unit IV TTS [facility] Ethambutol HCl (Myambutol) 800 mg PO TTS [facility]; Protocol Heparin Sodium (Porcine) (Heparin) 5,000 units SC Q12 [facility] Last Admin: 07/01/18 09:59 Dose: 5,000 units Vancomycin/Sodium Chloride (Vancomycin 1 Gm/Ns 200 Ml) 1 gm in 200 mls @ 133 mls/hr IVPB MWF [facility]; Protocol Stop: 07/04/18 15:31 Last Admin: 07/01/18 10:01 Dose: 133 mls/hr Meropenem 500 mg/ Sodium (Chloride) 100 mls @ 100 mls/hr IVPB Q12H [facility]; Prot ocol Last Admin: 07/01/18 10:00 Dose: 100 mls/hr Isoniazid (Niazid) 300 mg PO DAILY [facility]; Protocol Stop: 08/05/18 10:01 Last Admin: 07/01/18 13:22 Dose: 300 mg Pantoprazole Sodium (Protonix Ec Tab) 40 mg PO DAILY [facility] Last Admin: 07/01/18 10:00 Dose: 40 mg Pyrazinamide (Pyrazinamide) 1,000 mg PO TTS [facility]; Protocol Pyridoxine HCl (Vitamin B6 50 Mg Tab) 50 mg PO DAILY [facility] Last Admin: 07/01/18 10:02 Dose: 50 mg Rifampin (Rifampin) 450 mg PO DAILY [facility]; Protocol Stop: 08/05/18 10:01 Last Admin: 07/01/18 10:01 Dose: 450 mg Sevelamer Carbonate (Renvela) 800 mg PO TIDCC [facility] Last Admin: 07/01/18 12:29 Dose: 800 mg - Labs Labs: 07/01/18 05:59 07/01/18 05:55 PT 11.8 SECONDS (9.7-12.2) 06/25/18 12:13 INR 1.1 06/25/18 12:13 APTT 88 SECONDS (21-34) H 06/25/18 12:13 - Constitutional Appears: Non-toxic, Chronically Ill - Head Exam Head Exam: NORMOCEPHALIC - Eye Exam Eye Exam: absent: Scleral icterus - ENT Exam ENT Exam: Mucous Membranes Dry - Neck Exam Neck Exam: absent: Lymphadenopathy - Respiratory Exam Respiratory Exam: Decreased Breath Sounds - Cardiovascular Exam Cardiovascular Exam: REGULAR RHYTHM - GI/Abdominal Exam GI & Abdominal Exam: Distended - Rectal Exam Rectal Exam: Deferred - Exam Exam: NORMAL INSPECTION Assessment and Plan (1) ESRD (end stage renal disease) Status: Acute (2) Pleural effusion Status: Acute (3) Fever Status: Acute (4) Hypertensive chronic kidney disease with stage 5 chronic kidney disease or end stage renal disease Status: Acute (5) Pneumonia Status: Acute (6) ESRD (end stage renal disease) on dialysis Status: Chronic
--- NOTE | 2018-07-02 07:41 | CP.PCM.PN ---
Subjective - Date & Time of Evaluation Date of Evaluation: 07/02/18 Time of Evaluation: 07:39 - Subjective Subjective: Thoracic Surgery Dr. Lemons Pt seen and examined @bedside. Pt discharged from ICU yesterday. No acute events overnight. pt has no complaints this AM. denies CP, SOB, F/C, N/V. tolerating diet. Objective - Vital Signs/Intake and Output Vital Signs (last 24 hours): Temp Pulse Resp BP Pulse Ox 100.0 F H 93 H 20 120/72 98 07/02/18 04:00 07/02/18 04:20 07/02/18 04:00 07/02/18 04:00 07/02/18 04:00 Intake and Output: 07/02/18 07/02/18 06:59 18:59 Output Total 65 Balance -65 - Medications Medications: Current Medications Acetaminophen (Tylenol 325mg Tab) 650 mg PO Q6 PRN PRN Reason: for fever Last Admin: 07/01/18 05:45 Dose: 650 mg Epoetin Milton (Procrit) 10,000 unit IV TTS [facility] Ethambutol HCl (Myambutol) 800 mg PO TTS [facility]; Protocol Heparin Sodium (Porcine) (Heparin) 5,000 units SC Q12 [facility] Last Admin: 07/01/18 22:01 Dose: 5,000 units Vancomycin/Sodium Chloride (Vancomycin 1 Gm/Ns 200 Ml) 1 gm in 200 mls @ 133 mls/hr IVPB MWF [facility]; Protocol Stop: 07/04/18 15:31 Last Admin: 07/01/18 10:01 Dose: 133 mls/hr Meropenem 500 mg/ Sodium (Chloride) 100 mls @ 100 mls/hr IVPB Q12H [facility]; Protocol Last Admin: 07/01/18 22:01 Dose: 100 mls/hr Isoniazid (Niazid) 300 mg PO DAILY [facility]; Protocol Stop: 08/05/18 10:01 Last Admin: 07/01/18 13:22 Dose: 300 mg Pantoprazole Sodium (Protonix Ec Tab) 40 mg PO DAILY [facility] Last Admin: 07/01/18 10:00 Dose: 40 mg Pyrazinamide (Pyrazinamide) 1,000 mg PO TTS [facility]; Protocol Pyridoxine HCl (Vitamin B6 50 Mg Tab) 50 mg PO DAILY [facility] Last Admin: 07/01/18 10:02 Dose: 50 mg Rifampin (Rifampin) 450 mg PO DAILY [facility]; Protocol Stop: 08/05/18 10:01 Last Admin: 07/01/18 10:01 Dose: 450 mg Sevelamer Carbonate (Renvela) 800 mg PO TIDCC [facility] Last Admin: 07/01/18 18:17 Dose: 800 mg - Labs Labs: 07/01/18 05:59 07/01/18 05:55 PT 11.8 SECONDS (9.7-12.2) 06/25/18 12:13 INR 1.1 06/25/18 12:13 APTT 88 SECONDS (21-34) H 06/25/18 12:13 - Constitutional Appears: Non-toxic, No Acute Distress - Head Exam Head Exam: NORMAL INSPECTION - Eye Exam Eye Exam: Normal appearance - ENT Exam ENT Exam: Mucous Membranes Moist - Respiratory Exam Respiratory Exam: NORMAL BREATHING PATTERN. absent: Accessory Muscle Use, Respiratory Distress Additional comments: pigtail in place, serous drainage dressing c/d/i - Cardiovascular Exam Cardiovascular Exam: REGULAR RHYTHM. absent: Bradycardia, Tachycardia - Extremities Exam Extremities Exam: Normal Inspection - Neurological Exam Neurological Exam: Alert, Awake, Oriented x3 - Psychiatric Exam Psychiatric exam: Normal Affect, Normal Mood - Skin Skin Exam: Dry, Intact, Normal Color, Warm Assessment and Plan - Assessment and Plan (Free Text) Assessment: 47 y/o F w/ right-sided pleural effusion s/p IR pigtail catheter insertion Plan: - monitor pigtail output - Abx per ID - f/u Cx and cytology - cont medical management - plan for R VATs w/ Bx of lung on Wednesday 07/05 Further recs as per Dr. Vesta Hylton PGY3
[2018-07-02 08:00] LABS: BASO % 0.6 % (0.0-2.0); EOS # 0.2 K/uL (0.0-0.7); EOS % 5.9 % (0.0-4.0); HEMOGLOBIN 9.1 g/dL (11.0-16.0); LYMPH # 0.5 K/uL (1.0-4.3); LYMPH % 16.9 % (20.0-40.0); MEAN CELL VOLUME 96.5 fL (81.0-99.0); MEAN CORPUSCULAR HEMOGLOBIN 31.5 pg (27.0-31.0); MEAN CORPUSCULAR HGB CONC 32.7 g/dL (33.0-37.0); MEAN PLATELET VOLUME 8.2 fL (7.2-11.7); MONO # 0.3 K/uL (0.0-0.8); MONO % 9.4 % (0.0-10.0); NEUT # 2.1 K/uL (1.8-7.0); NEUT % 67.2 % (50.0-75.0); RBC 2.89 Mil/uL (3.80-5.20); RED CELL DISTRIBUTION WIDTH 16.3 % (11.5-14.5); WHITE BLOOD COUNT 3.2 K/uL (4.8-10.8)
--- NOTE | 2018-07-02 08:08 | CP.PCM.PN ---
Subjective - Date & Time of Evaluation Date of Evaluation: 07/02/18 Time of Evaluation: 07:35 - Subjective Subjective: Pt no complain; Stop O2 NO CP, no SOB, no edema, (+) dry cough, no N/v, no diarrhea, no rash, no vision complain; Appetite is well CT still in place Objective - Vital Signs/Intake and Output Vital Signs (last 24 hours): Temp Pulse Resp BP Pulse Ox 100.0 F H 93 H 20 120/72 98 07/02/18 04:00 07/02/18 04:20 07/02/18 04:00 07/02/18 04:00 07/02/18 04:00 Intake and Output: 07/02/18 07/02/18 06:59 18:59 Output Total 65 Balance -65 - Medications Medications: Current Medications Acetaminophen (Tylenol 325mg Tab) 650 mg PO Q6 PRN PRN Reason: for fever Last Admin: 07/01/18 05:45 Dose: 650 mg Epoetin Milton (Procrit) 10,000 unit IV TTS [facility] Ethambutol HCl (Myambutol) 800 mg PO TTS [facility]; Protocol Heparin Sodium (Porcine) (Heparin) 5,000 units SC Q12 [facility] Last Admin: 07/01/18 22:01 Dose: 5,000 units Vancomycin/Sodium Chloride (Vancomycin 1 Gm/Ns 200 Ml) 1 gm in 200 mls @ 133 mls/hr IVPB MWF [facility]; Protocol Stop: 07/04/18 15:31 Last Admin: 07/01/18 10:01 Dose: 133 mls/hr Meropenem 500 mg/ Sodium (Chloride) 100 mls @ 100 mls/hr IVPB Q12H [facility]; Protocol Last Admin: 07/01/18 22:01 Dose: 100 mls/hr Isoniazid (Niazid) 300 mg PO DAILY [facility]; Protocol Stop: 08/05/18 10:01 Last Admin: 07/01/18 13:22 Dose: 300 mg Pantoprazole Sodium (Protonix Ec Tab) 40 mg PO DAILY [facility] Last Admin: 07/01/18 10:00 Dose: 40 mg Pyrazinamide (Pyrazinamide) 1,000 mg PO TTS [facility]; Protocol Pyridoxine HCl (Vitamin B6 50 Mg Tab) 50 mg PO DAILY [facility] Last Admin: 07/01/18 10:02 Dose: 50 mg Rifampin (Rifampin) 450 mg PO DAILY [facility]; Protocol Stop: 08/05/18 10:01 Last Admin: 07/01/18 10:01 Dose: 450 mg Sevelamer Carbonate (Renvela) 800 mg PO TIDCC [facility] Last Admin: 07/01/18 18:17 Dose: 800 mg - Labs Labs: 07/02/18 07:43 07/01/18 05:55 PT 11.8 SECONDS (9.7-12.2) 06/25/18 12:13 INR 1.1 06/25/18 12:13 APTT 88 SECONDS (21-34) H 06/25/18 12:13 - Constitutional Appears: No Acute Distress - Eye Exam Eye Exam: Normal appearance - ENT Exam ENT Exam: Mucous Membranes Moist - Neck Exam Neck Exam: Full ROM. absent: Lymphadenopathy, Normal Inspection - Respiratory Exam Respiratory Exam: Decreased Breath Sounds. absent: Rales, Rhonchi, Wheezes - Cardiovascular Exam Cardiovascular Exam: REGULAR RHYTHM, +S1, +S2. absent: Gallop, JVD - GI/Abdominal Exam GI & Abdominal Exam: Soft. absent: Tenderness - Extremities Exam Extremities Exam: Full ROM, Normal Capillary Refill. absent: Calf Tenderness, Joint Swelling, Pedal Edema Assessment and Plan - Assessment and Plan (Free Text) Assessment: Large pleural effusion s/o CT HTN, ESRD Cont meds; (on RIPE + Antibx) Await Biopsy
[2018-07-02 08:11] LABS: ALB/GLOB RATIO 0.8 (1.0-2.1); ALBUMIN 2.9 g/dL (3.5-5.0); CALCIUM 9.6 mg/dl (8.6-10.4)
--- NOTE | 2018-07-02 08:54 | CP.PCM.PN ---
Subjective - Date & Time of Evaluation Date of Evaluation: 07/02/18 Time of Evaluation: 08:51 - Subjective Subjective: Now on floors, out of ICU feels better today chest tube still in no SOB at rest no cough aferile blood cultures from 20th- no growth rest 10 point ROS negative Objective - Vital Signs/Intake and Output Vital Signs (last 24 hours): Temp Pulse Resp BP Pulse Ox 97.9 F 97 H 20 114/68 97 07/02/18 07:00 07/02/18 07:51 07/02/18 07:00 07/02/18 07:00 07/02/18 07:00 Intake and Output: 07/02/18 07/02/18 06:59 18:59 Output Total 65 Balance -65 - Medications Medications: Current Medications Acetaminophen (Tylenol 325mg Tab) 650 mg PO Q6 PRN PRN Reason: for fever Last Admin: 07/01/18 05:45 Dose: 650 mg Epoetin Milton (Procrit) 10,000 unit IV TTS [facility] Ethambutol HCl (Myambutol) 800 mg PO TTS [facility]; Protocol Heparin Sodium (Porcine) (Heparin) 5,000 units SC Q12 [facility] Last Admin: 07/01/18 22:01 Dose: 5,000 units Vancomycin/Sodium Chloride (Vancomycin 1 Gm/Ns 200 Ml) 1 gm in 200 mls @ 133 mls/hr IVPB MWF [facility]; Protocol Stop: 07/04/18 15:31 Last Admin: 07/01/18 10:01 Dose: 133 mls/hr Meropenem 500 mg/ Sodium (Chloride) 100 mls @ 100 mls/hr IVPB Q12H [facility]; Protocol Last Admin: 07/01/18 22:01 Dose: 100 mls/hr Isoniazid (Niazid) 300 mg PO DAILY [facility]; Protocol Stop: 08/05/18 10:01 Last Admin: 07/01/18 13:22 Dose: 300 mg Pantoprazole Sodium (Protonix Ec Tab) 40 mg PO DAILY [facility] Last Admin: 07/01/18 10:00 Dose: 40 mg Pyrazinamide (Pyrazinamide) 1,000 mg PO TTS [facility]; Protocol Pyridoxine HCl (Vitamin B6 50 Mg Tab) 50 mg PO DAILY [facility] Last Admin: 07/01/18 10:02 Dose: 50 mg Rifampin (Rifampin) 450 mg PO DAILY [facility]; Protocol Stop: 08/05/18 10:01 Last Admin: 07/01/18 10:01 Dose: 450 mg Sevelamer Carbonate (Renvela) 800 mg PO TIDCC [facility] Last Admin: 07/02/18 08:44 Dose: Not Given - Labs Labs: 07/02/18 07:43 07/02/18 07:43 PT 11.8 SECONDS (9.7-12.2) 06/25/18 12:13 INR 1.1 06/25/18 12:13 APTT 88 SECONDS (21-34) H 06/25/18 12:13 - Constitutional Appears: Non-toxic, Chronically Ill - Head Exam Head Exam: ATRAUMATIC, NORMOCEPHALIC - Eye Exam Eye Exam: EOMI, PERRL - ENT Exam ENT Exam: Mucous Membranes Moist - Neck Exam Neck Exam: Full ROM - Respiratory Exam Respiratory Exam: Clear to Ausculation Bilateral. absent: Rhonchi, Wheezes Additional comments: decreased BS on left side - Cardiovascular Exam Cardiovascular Exam: REGULAR RHYTHM, +S1, +S2 - GI/Abdominal Exam GI & Abdominal Exam: Soft. absent: Distended, Tenderness - Extremities Exam Extremities Exam: Full ROM. absent: Pedal Edema - Neurological Exam Neurological Exam: Alert, Awake, Oriented x3 - Psychiatric Exam Psychiatric exam: Normal Affect, Normal Mood - Skin Skin Exam: Normal Color, Warm Assessment and Plan (1) ESRD (end stage renal disease) Status: Acute (2) Pleural effusion Status: Acute (3) SOB (shortness of breath) Status: Acute (4) Tachycardia Status: Acute (5) HTN (hypertension) Status: Chronic (6) Anemia Status: Chronic (7) Diabetes Status: Chronic - Assessment and Plan (Free Text) Plan: HD today BP stable aranesp for anemia BP stable for possible lung biopsy next week pulmonary follow up- ? need for thoracentesis on left side
[2018-07-02] MEDS: Meropenem 500 MG in Sodium Chloride 0.9% 100 ML IVPB SCH ×2 (11:08→21:23)
[2018-07-02] MEDS: Pantoprazole 40 mg EC Tab PO SCH (11:09)
[2018-07-02] MEDS: Epoetin Alfa 10,000 unit/ml Dialysis IV SCH (13:41)
--- NOTE | 2018-07-02 15:04 | RAD ---
Date of service: 07/02/2018 HISTORY: pigtail catheter COMPARISON: 07/01/2018 FINDINGS: LUNGS: No active pulmonary disease. PLEURA: Small right pleural effusion, unchanged. Minimal left pleural effusion. No pneumothorax. CARDIOVASCULAR: No aortic atherosclerotic calcification present. Normal cardiac size. Right tunneled central venous dialysis catheter. No congestive change. OSSEOUS STRUCTURES: No significant abnormalities. VISUALIZED UPPER ABDOMEN: Normal. OTHER FINDINGS: None. IMPRESSION: Small bilateral pleural effusion, unchanged. No infiltrate.
--- NOTE | 2018-07-02 19:41 | CP.PCM.PN ---
Subjective - Date & Time of Evaluation Date of Evaluation: 07/02/18 Time of Evaluation: 18:40 - Subjective Subjective: Patient seen and examined Has been afebrile for more than 24 hours Still complaining of slight cough No shortness of breath Status post hemodialysis On anti-tuberculous medicine Elevated adenosine deaminase level in the pleural fluid Objective - Vital Signs/Intake and Output Vital Signs (last 24 hours): Temp Pulse Resp BP Pulse Ox 98.1 F 108 H 16 120/75 97 07/02/18 16:00 07/02/18 16:00 07/02/18 16:00 07/02/18 16:00 07/02/18 16:00 Intake and Output: 07/02/18 07/03/18 18:59 06:59 Intake Total 200 Output Total 0 Balance 200 - Medications Medications: Current Medications Acetaminophen (Tylenol 325mg Tab) 650 mg PO Q6 PRN PRN Reason: for fever Last Admin: 07/01/18 05:45 Dose: 650 mg Epoetin Milton (Procrit) 10,000 unit IV TTS [facility] Last Admin: 07/02/18 13:41 Dose: 10,000 unit Ethambutol HCl (Myambutol) 800 mg PO TTS [facility]; Protocol Heparin Sodium (Porcine) (Heparin) 5,000 units SC Q12 [facility] Last Admin: 07/02/18 11:08 Dose: Not Given Meropenem 500 mg/ Sodium (Chloride) 100 mls @ 100 mls/hr IVPB Q12H [facility]; Protocol Last Admin: 07/02/18 11:08 Dose: Not Given Isoniazid (Niazid) 300 mg PO DAILY [facility]; Protocol Stop: 08/05/18 10:01 Last Admin: 07/02/18 11:09 Dose: Not Given Pantoprazole Sodium (Protonix Ec Tab) 40 mg PO DAILY [facility] Last Admin: 07/02/18 11:09 Dose: Not Given Pyrazinamide (Pyrazinamide) 1,000 mg PO TTS [facility]; Protocol Pyridoxine HCl (Vitamin B6 50 Mg Tab) 50 mg PO DAILY [facility] Last Admin: 07/02/18 11:11 Dose: Not Given Rifampin (Rifampin) 450 mg PO DAILY [facility]; Protocol Stop: 08/05/18 10:01 Last Admin: 07/02/18 11:11 Dose: Not Given Sevelamer Carbonate (Renvela) 800 mg PO TIDCC [facility] Last Admin: 07/02/18 17:45 Dose: 800 mg - Labs Labs: 07/02/18 07:43 07/02/18 07:43 PT 11.8 SECONDS (9.7-12.2) 06/25/18 12:13 INR 1.1 06/25/18 12:13 APTT 88 SECONDS (21-34) H 06/25/18 12:13 Assessment and Plan (1) Pleural effusion Status: Acute (2) ESRD (end stage renal disease) Status: Acute
--- NOTE | 2018-07-03 07:55 | CP.PCM.PN ---
Subjective - Date & Time of Evaluation Date of Evaluation: 07/03/18 Time of Evaluation: 07:52 - Subjective Subjective: Thoracic Surgery Dr. Lemons Pt seen and examined @bedside. Pt febrile overnight, Tmax 101.9; otherwise no acute events. Pt has no complaints this AM. denies CP, SOB, N/V. tolerating diet. R pigtail catheter 5cc x24hrs, serous Objective - Vital Signs/Intake and Output Vital Signs (last 24 hours): Temp Pulse Resp BP Pulse Ox 98.4 F 99 H 20 114/62 96 07/02/18 23:25 07/03/18 01:00 07/02/18 23:25 07/02/18 23:25 07/02/18 23:25 - Medications Medications: Current Medications Acetaminophen (Tylenol 325mg Tab) 650 mg PO Q6 PRN PRN Reason: for fever Last Admin: 07/02/18 21:15 Dose: 650 mg Epoetin Milton (Procrit) 10,000 unit IV TTS [facility] Last Admin: 07/02/18 13:41 Dose: 10,000 unit Ethambutol HCl (Myambutol) 800 mg PO TTS [facility]; Protocol Meropenem 500 mg/ Sodium (Chloride) 100 mls @ 100 mls/hr IVPB Q12H [facility]; Protocol Last Admin: 07/02/18 21:23 Dose: 100 mls/hr Isoniazid (Niazid) 300 mg PO DAILY [facility]; Protocol Stop: 08/05/18 10:01 Last Admin: 07/02/18 11:09 Dose: Not Given Pantoprazole Sodium (Protonix Ec Tab) 40 mg PO DAILY [facility] Last Admin: 07/02/18 11:09 Dose: Not Given Pyrazinamide (Pyrazinamide) 1,000 mg PO TTS [facility]; Protocol Pyridoxine HCl (Vitamin B6 50 Mg Tab) 50 mg PO DAILY [facility] Last Admin: 07/02/18 11:11 Dose: Not Given Rifampin (Rifampin) 450 mg PO DAILY [facility]; Protocol Stop: 08/05/18 10:01 Last Admin: 07/02/18 11:11 Dose: Not Given Sevelamer Carbonate (Renvela) 800 mg PO TIDCC [facility] Last Admin: 07/02/18 17:45 Dose: 800 mg - Labs Labs: 07/02/18 07:43 07/02/18 07:43 PT 11.8 SECONDS (9.7-12.2) 06/25/18 12:13 INR 1.1 06/25/18 12:13 APTT 88 SECONDS (21-34) H 06/25/18 12:13 - Constitutional Appears: Non-toxic, No Acute Distress - Head Exam Head Exam: NORMAL INSPECTION - Eye Exam Eye Exam: Normal appearance - ENT Exam ENT Exam: Mucous Membranes Moist - Respiratory Exam Respiratory Exam: NORMAL BREATHING PATTERN. absent: Accessory Muscle Use, Respiratory Distress Additional comments: R pigtail in place dressing c/d/i - Cardiovascular Exam Cardiovascular Exam: REGULAR RHYTHM. absent: Bradycardia, Tachycardia - GI/Abdominal Exam GI & Abdominal Exam: Soft. absent: Distended, Tenderness - Extremities Exam Extremities Exam: Normal Inspection - Neurological Exam Neurological Exam: Alert, Awake, Oriented x3 - Psychiatric Exam Psychiatric exam: Normal Affect, Normal Mood - Skin Skin Exam: Dry, Intact, Normal Color, Warm Assessment and Plan - Assessment and Plan (Free Text) Assessment: 47 y/o F w/ right-sided pleural effusion s/p IR pigtail catheter insertion Plan: - AM CXR stable w/ tube in place - cont to monitor pigtail output - Abx per ID - f/u Cx and cytology - cont medical management - plan for R VATs w/ Bx of lung on Wednesday 07/05 @1pm Further recs as per Dr. Vesta Hylton PGY3
[2018-07-03 08:01] LABS: BASO % 0.3 % (0.0-2.0); EOS # 0.3 K/uL (0.0-0.7); EOS % 7.9 % (0.0-4.0); HEMOGLOBIN 9.4 g/dL (11.0-16.0); LYMPH # 0.6 K/uL (1.0-4.3); MEAN CELL VOLUME 96.8 fL (81.0-99.0); MEAN CORPUSCULAR HEMOGLOBIN 31.8 pg (27.0-31.0); MEAN CORPUSCULAR HGB CONC 32.9 g/dL (33.0-37.0); MEAN PLATELET VOLUME 8.1 fL (7.2-11.7); MONO # 0.5 K/uL (0.0-0.8); MONO % 12.2 % (0.0-10.0); NEUT # 2.9 K/uL (1.8-7.0); NEUT % 66.6 % (50.0-75.0); RBC 2.95 Mil/uL (3.80-5.20); RED CELL DISTRIBUTION WIDTH 16.5 % (11.5-14.5); WHITE BLOOD COUNT 4.3 K/uL (4.8-10.8)
[2018-07-03 08:11] LABS: ALB/GLOB RATIO 0.8 (1.0-2.1); ALBUMIN 3.2 g/dL (3.5-5.0); CALCIUM 9.3 mg/dl (8.6-10.4)
[2018-07-03] MEDS: Pantoprazole 40 mg EC Tab PO SCH (09:34)
[2018-07-03] MEDS: Meropenem 500 MG in Sodium Chloride 0.9% 100 ML IVPB SCH ×2 (09:35→21:30)
--- NOTE | 2018-07-03 11:27 | RAD ---
Date of service: 07/03/2018 HISTORY: pleural effusion, pigtail cath COMPARISON: 07/02/2018 FINDINGS: LUNGS: No active pulmonary disease. PLEURA: Bilateral small pleural effusion. Pigtail pleural drainage catheter seen at right base. No pneumothorax. CARDIOVASCULAR: No aortic atherosclerotic calcification present. Normal cardiac size. Right tunneled central venous dialysis catheter. OSSEOUS STRUCTURES: No significant abnormalities. VISUALIZED UPPER ABDOMEN: Normal. OTHER FINDINGS: None. IMPRESSION: Small bilateral pleural effusion and right pigtail pleural drainage catheter.
--- NOTE | 2018-07-03 11:39 | CARD ---
APPROVED REPORT Date of service: 06/25/2018 EKG Measurement Heart [id number] <Conclusion> Sinus tachycardia Anterolateral infarct, age undetermined Abnormal ECG
--- NOTE | 2018-07-03 17:42 | CP.PCM.PN ---
Subjective - Date & Time of Evaluation Date of Evaluation: 07/03/18 Time of Evaluation: 10:00 - Subjective Subjective: appears comfortable afebrile NAD Objective - Vital Signs/Intake and Output Vital Signs (last 24 hours): Temp Pulse Resp BP Pulse Ox 98.1 F 108 H 20 116/71 99 07/03/18 15:30 07/03/18 16:34 07/03/18 15:30 07/03/18 15:30 07/03/18 15:30 Intake and Output: 07/03/18 07/03/18 06:59 18:59 Intake Total 400 Output Total 0 Balance 400 - Medications Medications: Current Medications Acetaminophen (Tylenol 325mg Tab) 650 mg PO Q6 PRN PRN Reason: for fever Last Admin: 07/02/18 21:15 Dose: 650 mg Epoetin Milton (Procrit) 10,000 unit IV TTS [facility] Last Admin: 07/02/18 13:41 Dose: 10,000 unit Ethambutol HCl (Myambutol) 800 mg PO TTS [facility]; Protocol Meropenem 500 mg/ Sodium (Chloride) 100 mls @ 100 mls/hr IVPB Q12H [facility]; Protocol Last Admin: 07/03/18 09:35 Dose: 100 mls/hr Isoniazid (Niazid) 300 mg PO DAILY [facility]; Protocol Stop: 08/05/18 10:01 Last Admin: 07/03/18 09:34 Dose: 300 mg Pantoprazole Sodium (Protonix Ec Tab) 40 mg PO DAILY [facility] Last Admin: 07/03/18 09:34 Dose: 40 mg Pyrazinamide (Pyrazinamide) 1,000 mg PO TTS [facility]; Protocol Pyridoxine HCl (Vitamin B6 50 Mg Tab) 50 mg PO DAILY [facility] Last Admin: 07/03/18 09:34 Dose: 50 mg Rifampin (Rifampin) 450 mg PO DAILY [facility]; Protocol Stop: 08/05/18 10:01 Last Admin: 07/03/18 09:34 Dose: 450 mg Sevelamer Carbonate (Renvela) 800 mg PO TIDCC [facility] Last Admin: 07/03/18 17:39 Dose: 800 mg - Labs Labs: 07/03/18 07:39 07/03/18 07:39 PT 11.8 SECONDS (9.7-12.2) 06/25/18 12:13 INR 1.1 06/25/18 12:13 APTT 88 SECONDS (21-34) H 06/25/18 12:13 - Constitutional Appears: Non-toxic, Chronically Ill - Head Exam Head Exam: NORMOCEPHALIC - Eye Exam Eye Exam: absent: Scleral icterus - ENT Exam ENT Exam: Mucous Membranes Dry - Neck Exam Neck Exam: absent: Lymphadenopathy - Respiratory Exam Respiratory Exam: Decreased Breath Sounds - Cardiovascular Exam Cardiovascular Exam: REGULAR RHYTHM - GI/Abdominal Exam GI & Abdominal Exam: Distended - Rectal Exam Rectal Exam: Deferred - Exam Exam: NORMAL INSPECTION - Extremities Exam Extremities Exam: absent: Pedal Edema - Back Exam Back Exam: absent: CVA tenderness (L), CVA tenderness (R) Assessment and Plan (1) ESRD (end stage renal disease) Status: Acute (2) Pleural effusion Status: Acute (3) Fever Status: Acute (4) Hypertensive chronic kidney disease with stage 5 chronic kidney disease or end stage renal disease Status: Acute (5) Pneumonia Status: Acute (6) ESRD (end stage renal disease) on dialysis Status: Chronic - Assessment and Plan (Free Text) Assessment: Has been afebrile for more than 24 hours On anti-tuberculous medicine Elevated adenosine deaminase level in the pleural fluid cultures for AFB take 6 weeks
--- NOTE | 2018-07-04 08:10 | CP.PCM.PN ---
Subjective - Date & Time of Evaluation Date of Evaluation: 07/04/18 Time of Evaluation: 06:45 - Subjective Subjective: Progress note for Dr. Lemons. Pt seen and examined at bedside. Pt afebrile overnight, no acute events. Pt has no complaints today. denies CP, SOB, N/V. tolerating diet. Objective - Vital Signs/Intake and Output Vital Signs (last 24 hours): Temp Pulse Resp BP Pulse Ox 98.4 F 103 H 20 121/74 95 07/04/18 04:32 07/04/18 04:32 07/04/18 04:32 07/04/18 04:32 07/04/18 04:32 Intake and Output: 07/04/18 07/04/18 06:59 18:59 Intake Total 300 Output Total 40 Balance 260 - Medications Medications: Current Medications Acetaminophen (Tylenol 325mg Tab) 650 mg PO Q6 PRN PRN Reason: for fever Last Admin: 07/02/18 21:15 Dose: 650 mg Epoetin Milton (Procrit) 10,000 unit IV TTS [facility] Last Admin: 07/02/18 13:41 Dose: 10,000 unit Ethambutol HCl (Myambutol) 800 mg PO TTS [facility]; Protocol Meropenem 500 mg/ Sodium (Chloride) 100 mls @ 100 mls/hr IVPB Q12H [facility]; Protocol Last Admin: 07/03/18 21:30 Dose: 100 mls/hr Isoniazid (Niazid) 300 mg PO DAILY [facility]; Protocol Stop: 08/05/18 10:01 Last Admin: 07/03/18 09:34 Dose: 300 mg Pantoprazole Sodium (Protonix Ec Tab) 40 mg PO DAILY [facility] Last Admin: 07/03/18 09:34 Dose: 40 mg Pyrazinamide (Pyrazinamide) 1,000 mg PO TTS [facility]; Protocol Pyridoxine HCl (Vitamin B6 50 Mg Tab) 50 mg PO DAILY [facility] Last Admin: 07/03/18 09:34 Dose: 50 mg Rifampin (Rifampin) 450 mg PO DAILY [facility]; Protocol Stop: 08/05/18 10:01 Last Admin: 07/03/18 09:34 Dose: 450 mg Sevelamer Carbonate (Renvela) 800 mg PO TIDCC [facility] Last Admin: 07/04/18 07:55 Dose: 800 mg - Labs Labs: 07/03/18 07:39 07/03/18 07:39 PT 11.8 SECONDS (9.7-12.2) 06/25/18 12:13 INR 1.1 06/25/18 12:13 APTT 88 SECONDS (21-34) H 06/25/18 12:13 - Constitutional Appears: Non-toxic, No Acute Distress - Head Exam Head Exam: ATRAUMATIC, NORMOCEPHALIC - Eye Exam Eye Exam: Normal appearance - ENT Exam ENT Exam: Mucous Membranes Moist - Neck Exam Neck Exam: Normal Inspection - Respiratory Exam Respiratory Exam: NORMAL BREATHING PATTERN. absent: Accessory Muscle Use Additional comments: R pigtail in place dressing c/d/i - Neurological Exam Neurological Exam: Alert, Awake, Oriented x3 - Psychiatric Exam Psychiatric exam: Normal Affect, Normal Mood - Skin Skin Exam: Dry, Normal Color, Warm Assessment and Plan - Assessment and Plan (Free Text) Assessment: 47 y/o F w/ right-sided pleural effusion s/p IR pigtail catheter insertion Plan: - cont to monitor pigtail output - Abx per ID - cont medical management - plan for R VATs w/ Bx of lung on Wednesday 07/05 @1pm Further recs as per Dr. Vesta Doyle, PGY-1
--- NOTE | 2018-07-04 09:04 | CP.PCM.PN ---
Subjective - Date & Time of Evaluation Date of Evaluation: 07/04/18 Time of Evaluation: 08:35 - Subjective Subjective: Pt feels well; CT w/ almost no drainage No unusual CP, no SOB, almost no cough, good appetite Refuse MAK but not ordered c/o Dr Ascencio Objective - Vital Signs/Intake and Output Vital Signs (last 24 hours): Temp Pulse Resp BP Pulse Ox 97.9 F 98 H 20 129/75 98 07/04/18 07:27 07/04/18 07:27 07/04/18 07:27 07/04/18 07:27 07/04/18 07:27 Intake and Output: 07/04/18 07/04/18 06:59 18:59 Intake Total 300 Output Total 40 Balance 260 - Medications Medications: Current Medications Acetaminophen (Tylenol 325mg Tab) 650 mg PO Q6 PRN PRN Reason: for fever Last Admin: 07/02/18 21:15 Dose: 650 mg Epoetin Milton (Procrit) 10,000 unit IV TTS [facility] Last Admin: 07/02/18 13:41 Dose: 10,000 unit Ethambutol HCl (Myambutol) 800 mg PO TTS [facility]; Protocol Meropenem 500 mg/ Sodium (Chloride) 100 mls @ 100 mls/hr IVPB Q12H [facility]; Protocol Last Admin: 07/03/18 21:30 Dose: 100 mls/hr Isoniazid (Niazid) 300 mg PO DAILY [facility]; Protocol Stop: 08/05/18 10:01 Last Admin: 07/03/18 09:34 Dose: 300 mg Pantoprazole Sodium (Protonix Ec Tab) 40 mg PO DAILY [facility] Last Admin: 07/03/18 09:34 Dose: 40 mg Pyrazinamide (Pyrazinamide) 1,000 mg PO TTS [facility]; Protocol Pyridoxine HCl (Vitamin B6 50 Mg Tab) 50 mg PO DAILY [facility] Last Admin: 07/03/18 09:34 Dose: 50 mg Rifampin (Rifampin) 450 mg PO DAILY [facility]; Protocol Stop: 08/05/18 10:01 Last Admin: 07/03/18 09:34 Dose: 450 mg Sevelamer Carbonate (Renvela) 800 mg PO TIDCC [facility] Last Admin: 07/04/18 07:55 Dose: 800 mg - Labs Labs: 07/03/18 07:39 07/03/18 07:39 PT 11.8 SECONDS (9.7-12.2) 06/25/18 12:13 INR 1.1 06/25/18 12:13 APTT 88 SECONDS (21-34) H 06/25/18 12:13 - Constitutional Appears: No Acute Distress - Eye Exam Eye Exam: Normal appearance - ENT Exam ENT Exam: Mucous Membranes Moist - Neck Exam Neck Exam: Full ROM. absent: Lymphadenopathy, Thyromegaly - Respiratory Exam Respiratory Exam: Clear to Ausculation Bilateral. absent: Rales, Rhonchi, Wheezes - Cardiovascular Exam Cardiovascular Exam: REGULAR RHYTHM, +S1, +S2. absent: Gallop, JVD - GI/Abdominal Exam GI & Abdominal Exam: Soft. absent: Tenderness - Extremities Exam Extremities Exam: Full ROM, Normal Capillary Refill. absent: Joint Swelling, Pedal Edema Assessment and Plan - Assessment and Plan (Free Text) Assessment: Large Effusion s/p CT placement x 2 HTN, ESRD For lung biopsy Cont meds/ supportive care
[2018-07-04] MEDS: Meropenem 500 MG in Sodium Chloride 0.9% 100 ML IVPB SCH ×2 (10:17→22:00)
[2018-07-04] MEDS: Pantoprazole 40 mg EC Tab PO SCH (10:17)
--- NOTE | 2018-07-04 11:43 | CP.PCM.PN ---
Subjective - Date & Time of Evaluation Date of Evaluation: 07/04/18 Time of Evaluation: 11:40 - Subjective Subjective: no acute complaints denies sob chest tube with minimal drainage scheduled for lung biopsy in am no fevers appetite poor no rash no headache no abominal pain no anxiety decreased urine production no pain no arthralgias Objective - Vital Signs/Intake and Output Vital Signs (last 24 hours): Temp Pulse Resp BP Pulse Ox 97.9 F 98 H 20 129/75 98 07/04/18 07:27 07/04/18 07:27 07/04/18 07:27 07/04/18 07:27 07/04/18 07:27 Intake and Output: 07/04/18 07/04/18 06:59 18:59 Intake Total 300 Output Total 40 Balance 260 - Medications Medications: Current Medications Acetaminophen (Tylenol 325mg Tab) 650 mg PO Q6 PRN PRN Reason: for fever Last Admin: 07/02/18 21:15 Dose: 650 mg Epoetin Milton (Procrit) 10,000 unit IV TTS [facility] Last Admin: 07/02/18 13:41 Dose: 10,000 unit Ethambutol HCl (Myambutol) 800 mg PO TTS [facility]; Protocol Meropenem 500 mg/ Sodium (Chloride) 100 mls @ 100 mls/hr IVPB Q12H [facility]; Protocol Last Admin: 07/04/18 10:17 Dose: 100 mls/hr Isoniazid (Niazid) 300 mg PO DAILY [facility]; Protocol Stop: 08/05/18 10:01 Last Admin: 07/04/18 10:18 Dose: 300 mg Pantoprazole Sodium (Protonix Ec Tab) 40 mg PO DAILY [facility] Last Admin: 07/04/18 10:17 Dose: 40 mg Pyrazinamide (Pyrazinamide) 1,000 mg PO TTS [facility]; Protocol Pyridoxine HCl (Vitamin B6 50 Mg Tab) 50 mg PO DAILY [facility] Last Admin: 07/04/18 10:17 Dose: 50 mg Rifampin (Rifampin) 450 mg PO DAILY [facility]; Protocol Stop: 08/05/18 10:01 Last Admin: 07/04/18 10:18 Dose: 450 mg Sevelamer Carbonate (Renvela) 800 mg PO TIDCC [facility] Last Admin: 07/04/18 07:55 Dose: 800 mg - Labs Labs: 07/03/18 07:39 07/03/18 07:39 PT 11.8 SECONDS (9.7-12.2) 06/25/18 12:13 INR 1.1 06/25/18 12:13 APTT 88 SECONDS (21-34) H 06/25/18 12:13 - Head Exam Head Exam: ATRAUMATIC, NORMAL INSPECTION - Eye Exam Eye Exam: EOMI - Neck Exam Neck Exam: Full ROM. absent: Lymphadenopathy - Respiratory Exam Respiratory Exam: Decreased Breath Sounds. absent: Accessory Muscle Use, Wheezes - Cardiovascular Exam Cardiovascular Exam: REGULAR RHYTHM. absent: Rubs - GI/Abdominal Exam GI & Abdominal Exam: Soft. absent: Tenderness - Extremities Exam Extremities Exam: absent: Pedal Edema Assessment and Plan - Assessment and Plan (Free Text) Assessment: recurrent bilateral pleural effusions dialysis patient lung biopsy in am HD today in preparation for procedure
--- NOTE | 2018-07-04 17:43 | CP.PCM.PN ---
Subjective - Date & Time of Evaluation Date of Evaluation: 07/04/18 Time of Evaluation: 10:00 - Subjective Subjective: Patient seen and examined Afebrile Denies shortness of breath Minimal fluid drainage Objective - Vital Signs/Intake and Output Vital Signs (last 24 hours): Temp Pulse Resp BP Pulse Ox 98.3 F 121 H 20 112/61 99 07/04/18 17:15 07/04/18 17:15 07/04/18 17:15 07/04/18 17:15 07/04/18 17:15 Intake and Output: 07/04/18 07/04/18 06:59 18:59 Intake Total 300 350 Output Total 40 0 Balance 260 350 - Medications Medications: Current Medications Acetaminophen (Tylenol 325mg Tab) 650 mg PO Q6 PRN PRN Reason: for fever Last Admin: 07/02/18 21:15 Dose: 650 mg Epoetin Milton (Procrit) 10,000 unit IV TTS [facility] Last Admin: 07/02/18 13:41 Dose: 10,000 unit Ethambutol HCl (Myambutol) 800 mg PO TTS [facility]; Protocol Meropenem 500 mg/ Sodium (Chloride) 100 mls @ 100 mls/hr IVPB Q12H [facility]; Protocol Last Admin: 07/04/18 10:17 Dose: 100 mls/hr Isoniazid (Niazid) 300 mg PO DAILY [facility]; Protocol Stop: 08/05/18 10:01 Last Admin: 07/04/18 10:18 Dose: 300 mg Pantoprazole Sodium (Protonix Ec Tab) 40 mg PO DAILY [facility] Last Admin: 07/04/18 10:17 Dose: 40 mg Pyrazinamide (Pyrazinamide) 1,000 mg PO TTS [facility]; Protocol Pyridoxine HCl (Vitamin B6 50 Mg Tab) 50 mg PO DAILY [facility] Last Admin: 07/04/18 10:17 Dose: 50 mg Rifampin (Rifampin) 450 mg PO DAILY [facility]; Protocol Stop: 08/05/18 10:01 Last Admin: 07/04/18 10:18 Dose: 450 mg Sevelamer Carbonate (Renvela) 800 mg PO TIDCC [facility] Last Admin: 07/04/18 13:00 Dose: Not Given - Labs Labs: 07/03/18 07:39 07/03/18 07:39 PT 11.8 SECONDS (9.7-12.2) 06/25/18 12:13 INR 1.1 06/25/18 12:13 APTT 88 SECONDS (21-34) H 06/25/18 12:13 - Head Exam Head Exam: ATRAUMATIC, NORMOCEPHALIC - Eye Exam Eye Exam: Normal appearance - ENT Exam ENT Exam: Mucous Membranes Moist - Neck Exam Neck Exam: Normal Inspection - Respiratory Exam Respiratory Exam: Decreased Breath Sounds - Cardiovascular Exam Cardiovascular Exam: REGULAR RHYTHM Assessment and Plan (1) Pleural effusion Assessment & Plan: Continue with the pigtail and possible lung biopsy on Wednesday Continue antibiotics Status: Acute (2) ESRD (end stage renal disease) Status: Acute
--- NOTE | 2018-07-04 17:47 | CP.PCM.PN ---
Subjective - Date & Time of Evaluation Date of Evaluation: 07/04/18 Time of Evaluation: 17:42 - Subjective Subjective: Patient has no chest pain or dyspnea. She feels more comfortable. She is scheduled for VATS, pleural biopsy Objective - Vital Signs/Intake and Output Vital Signs (last 24 hours): Temp Pulse Resp BP Pulse Ox 98.3 F 121 H 20 112/61 99 07/04/18 17:15 07/04/18 17:15 07/04/18 17:15 07/04/18 17:15 07/04/18 17:15 Intake and Output: 07/04/18 07/04/18 06:59 18:59 Intake Total 300 350 Output Total 40 0 Balance 260 350 - Medications Medications: Current Medications Acetaminophen (Tylenol 325mg Tab) 650 mg PO Q6 PRN PRN Reason: for fever Last Admin: 07/02/18 21:15 Dose: 650 mg Epoetin Milton (Procrit) 10,000 unit IV TTS [facility] Last Admin: 07/02/18 13:41 Dose: 10,000 unit Ethambutol HCl (Myambutol) 800 mg PO TTS [facility]; Protocol Meropenem 500 mg/ Sodium (Chloride) 100 mls @ 100 mls/hr IVPB Q12H [facility]; Protocol Last Admin: 07/04/18 10:17 Dose: 100 mls/hr Isoniazid (Niazid) 300 mg PO DAILY [facility]; Protocol Stop: 08/05/18 10:01 Last Admin: 07/04/18 10:18 Dose: 300 mg Pantoprazole Sodium (Protonix Ec Tab) 40 mg PO DAILY [facility] Last Admin: 07/04/18 10:17 Dose: 40 mg Pyrazinamide (Pyrazinamide) 1,000 mg PO TTS [facility]; Protocol Pyridoxine HCl (Vitamin B6 50 Mg Tab) 50 mg PO DAILY [facility] Last Admin: 07/04/18 10:17 Dose: 50 mg Rifampin (Rifampin) 450 mg PO DAILY [facility]; Protocol Stop: 08/05/18 10:01 Last Admin: 07/04/18 10:18 Dose: 450 mg Sevelamer Carbonate (Renvela) 800 mg PO TIDCC [facility] Last Admin: 07/04/18 13:00 Dose: Not Given - Labs Labs: 07/03/18 07:39 07/03/18 07:39 PT 11.8 SECONDS (9.7-12.2) 06/25/18 12:13 INR 1.1 06/25/18 12:13 APTT 88 SECONDS (21-34) H 06/25/18 12:13 - Constitutional Appears: Non-toxic - Head Exam Head Exam: NORMAL INSPECTION - Eye Exam Eye Exam: Normal appearance - ENT Exam ENT Exam: Mucous Membranes Moist - Neck Exam Neck Exam: Full ROM - Respiratory Exam Respiratory Exam: Decreased Breath Sounds - Cardiovascular Exam Cardiovascular Exam: Tachycardia, REGULAR RHYTHM - GI/Abdominal Exam GI & Abdominal Exam: Normal Bowel Sounds - Rectal Exam Rectal Exam: Deferred - Extremities Exam Extremities Exam: absent: Pedal Edema - Back Exam Back Exam: NORMAL INSPECTION - Neurological Exam Neurological Exam: Alert - Psychiatric Exam Psychiatric exam: Normal Affect - Skin Skin Exam: Normal Color Assessment and Plan (1) Tachycardia Assessment & Plan: improved, but can add low dose betablocker to assist with reduction of preoperative risk Status: Acute (2) SOB (shortness of breath) Assessment & Plan: patient had previous pleural effusion. She is scheduled for VATS/pleural biopsy. Echocardiogram reviewed personally by me. The LV function is normal, and there are no regional wall motion abnormalities. The patient is at intermediate cardiovascular risk for the planned surgery. will add preoperative betablocker to attenuate the patient's risk. Patient is otherwise stable from a cardiac standpoint for the planned surgery. Of note I do not see an indication for MAK (I did not order MAK). Status: Acute (3) HTN (hypertension) Status: Chronic
[2018-07-04] MEDS: Metoprolol Succinate 25 mg XL Tab PO SCH (18:00)
[2018-07-05 06:48] LABS: HEMOGLOBIN 9.5 g/dL (11.0-16.0); MEAN CELL VOLUME 98.1 fL (81.0-99.0); MEAN CORPUSCULAR HEMOGLOBIN 32.5 pg (27.0-31.0); MEAN CORPUSCULAR HGB CONC 33.1 g/dL (33.0-37.0); MEAN PLATELET VOLUME 7.4 fL (7.2-11.7); RBC 2.94 Mil/uL (3.80-5.20); RED CELL DISTRIBUTION WIDTH 17.1 % (11.5-14.5); WHITE BLOOD COUNT 3.5 K/uL (4.8-10.8)
[2018-07-05 06:54] LABS: INR 1.1; PROTHROMBIN TIME 11.5 SECONDS (9.7-12.2)
[2018-07-05 07:02] LABS: CALCIUM 9.2 mg/dl (8.6-10.4)
--- NOTE | 2018-07-05 08:37 | CP.PCM.PN ---
Subjective - Date & Time of Evaluation Date of Evaluation: 07/05/18 Time of Evaluation: 08:15 - Subjective Subjective: Pt no complain; Await lung Bx No CP, no SOB, no edema, no cough, no n/v, no diarrhea Chest tube in place w/ very minimal drainage Cardio note reviewed/ appreciated - no absolute contra-indication for procedure with intermediate risk Objective - Vital Signs/Intake and Output Vital Signs (last 24 hours): Temp Pulse Resp BP Pulse Ox 97.7 F 81 20 105/62 97 07/05/18 07:00 07/05/18 08:00 07/05/18 07:00 07/05/18 07:00 07/05/18 07:00 Intake and Output: 07/05/18 07/05/18 06:59 18:59 Intake Total 100 Output Total 8 Balance 92 - Medications Medications: Current Medications Acetaminophen (Tylenol 325mg Tab) 650 mg PO Q6 PRN PRN Reason: for fever Last Admin: 07/05/18 00:23 Dose: 650 mg Epoetin Milton (Procrit) 10,000 unit IV TTS [facility] Last Admin: 07/02/18 13:41 Dose: 10,000 unit Ethambutol HCl (Myambutol) 800 mg PO TTS [facility]; Protocol Meropenem 500 mg/ Sodium (Chloride) 100 mls @ 100 mls/hr IVPB Q12H [facility]; Protocol Last Admin: 07/04/18 22:00 Dose: 100 mls/hr Isoniazid (Niazid) 300 mg PO DAILY [facility]; Protocol Stop: 08/05/18 10:01 Last Admin: 07/04/18 10:18 Dose: 300 mg Metoprolol Succinate (Toprol Xl) 25 mg PO DAILY [facility] Last Admin: 07/04/18 18:00 Dose: 25 mg Pantoprazole Sodium (Protonix Ec Tab) 40 mg PO DAILY [facility] Last Admin: 07/04/18 10:17 Dose: 40 mg Pyrazinamide (Pyrazinamide) 1,000 mg PO TTS [facility]; Protocol Pyridoxine HCl (Vitamin B6 50 Mg Tab) 50 mg PO DAILY [facility] Last Admin: 07/04/18 10:17 Dose: 50 mg Rifampin (Rifampin) 450 mg PO DAILY [facility]; Protocol Stop: 08/05/18 10:01 Last Admin: 07/04/18 10:18 Dose: 450 mg Sevelamer Carbonate (Renvela) 800 mg PO TIDCC [facility] Last Admin: 07/04/18 18:02 Dose: 800 mg - Labs Labs: 07/05/18 06:40 07/05/18 06:40 PT 11.5 SECONDS (9.7-12.2) 07/05/18 06:40 INR 1.1 07/05/18 06:40 APTT 35 SECONDS (21-34) H 07/05/18 06:40 - Constitutional Appears: No Acute Distress - Eye Exam Eye Exam: Normal appearance - ENT Exam ENT Exam: Mucous Membranes Moist - Neck Exam Neck Exam: Full ROM. absent: Lymphadenopathy, Normal Inspection - Respiratory Exam Respiratory Exam: Decreased Breath Sounds. absent: Rales, Rhonchi, Wheezes - Cardiovascular Exam Cardiovascular Exam: REGULAR RHYTHM, +S1, +S2. absent: Gallop - GI/Abdominal Exam GI & Abdominal Exam: Soft. absent: Guarding, Tenderness - Extremities Exam Extremities Exam: Full ROM, Normal Capillary Refill. absent: Calf Tenderness, Joint Swelling, Pedal Edema Assessment and Plan - Assessment and Plan (Free Text) Assessment: Recurrent pleural effusion s/p CT x 2 HTN, ESRD For Bx; Patient agrees with plan Cont meds (on RIPE + Toprol 25 mg) Renal note appreciated c/o was dialyzed yesterday
[2018-07-05] MEDS: Metoprolol Succinate 25 mg XL Tab PO SCH (09:49)
[2018-07-05] MEDS: Pantoprazole 40 mg EC Tab PO SCH (09:52)
[2018-07-05] MEDS: Meropenem 500 MG in Sodium Chloride 0.9% 100 ML IVPB SCH ×2 (09:54→21:29)
[2018-07-05] MEDS: Epoetin Alfa 10,000 unit/ml Dialysis IV SCH (09:55)
--- NOTE | 2018-07-05 10:45 | CP.PCM.PN ---
Subjective - Date & Time of Evaluation Date of Evaluation: 07/05/18 Time of Evaluation: 10:45 - Subjective Subjective: comfortable in bed afebrile dialysis last PM ROS no chills fever no chest pain sob cough no abd pain N,V,D anuric Objective - Vital Signs/Intake and Output Vital Signs (last 24 hours): Temp Pulse Resp BP Pulse Ox 97.7 F 81 20 105/62 97 07/05/18 07:00 07/05/18 08:00 07/05/18 07:00 07/05/18 07:00 07/05/18 07:00 Intake and Output: 07/05/18 07/05/18 06:59 18:59 Intake Total 100 Output Total 8 Balance 92 - Medications Medications: Current Medications Acetaminophen (Tylenol 325mg Tab) 650 mg PO Q6 PRN PRN Reason: for fever Last Admin: 07/05/18 00:23 Dose: 650 mg Epoetin Milton (Procrit) 10,000 unit IV TTS [facility] Last Admin: 07/05/18 09:55 Dose: Not Given Ethambutol HCl (Myambutol) 800 mg PO TTS [facility]; Protocol Last Admin: 07/05/18 09:53 Dose: 800 mg Meropenem 500 mg/ Sodium (Chloride) 100 mls @ 100 mls/hr IVPB Q12H [facility]; Protocol Last Admin: 07/05/18 09:54 Dose: 100 mls/hr Isoniazid (Niazid) 300 mg PO DAILY [facility]; Protocol Stop: 08/05/18 10:01 Last Admin: 07/05/18 09:47 Dose: 300 mg Metoprolol Succinate (Toprol Xl) 25 mg PO DAILY [facility] Last Admin: 07/05/18 09:49 Dose: 25 mg Pantoprazole Sodium (Protonix Ec Tab) 40 mg PO DAILY [facility] Last Admin: 07/05/18 09:52 Dose: 40 mg Pyrazinamide (Pyrazinamide) 1,000 mg PO TTS [facility]; Protocol Last Admin: 07/05/18 09:51 Dose: 1,000 mg Pyridoxine HCl (Vitamin B6 50 Mg Tab) 50 mg PO DAILY [facility] Last Admin: 07/05/18 09:52 Dose: 50 mg Rifampin (Rifampin) 450 mg PO DAILY [facility]; Protocol Stop: 08/05/18 10:01 Last Admin: 07/05/18 09:47 Dose: 450 mg Sevelamer Carbonate (Renvela) 800 mg PO TIDCC [facility] Last Admin: 07/05/18 09:00 Dose: 800 mg - Labs Labs: 07/05/18 06:40 07/05/18 06:40 PT 11.5 SECONDS (9.7-12.2) 07/05/18 06:40 INR 1.1 07/05/18 06:40 APTT 35 SECONDS (21-34) H 07/05/18 06:40 - Constitutional Appears: No Acute Distress - ENT Exam ENT Exam: Mucous Membranes Moist - Respiratory Exam Additional comments: diminehed sounds rt lung base otherwise clear - Cardiovascular Exam Cardiovascular Exam: REGULAR RHYTHM. absent: JVD - GI/Abdominal Exam GI & Abdominal Exam: Soft. absent: Distended, Tenderness - Extremities Exam Extremities Exam: absent: Calf Tenderness - Back Exam Back Exam: absent: CVA tenderness (L), CVA tenderness (R) - Neurological Exam Neurological Exam: Alert, Awake - Psychiatric Exam Psychiatric exam: Normal Mood - Skin Skin Exam: Dry Assessment and Plan (1) ESRD (end stage renal disease) Assessment & Plan: scheduledialysisfor 07/06 orders written mild ultrafiltration Status: Acute (2) Pleural effusion Status: Acute (3) HTN (hypertension) Status: Chronic
[2018-07-05] MEDS: Bupivacaine HCl 0.5% PF (10 ml) Inj ONE ×2 (12:40→14:04)
--- NOTE | 2018-07-05 13:13 | CP.PCM.PN ---
Subjective - Date & Time of Evaluation Date of Evaluation: 07/05/18 Time of Evaluation: 13:00 - Subjective Subjective: Patient transfered to OR table and placed on monitors. Heart rate uncontrolled in 120s and St depression noted in lead V. blood pressure stable. Advised Dr. Rosas to postpone case and obtain a 12 lead ekg, agreeable. Patient transfer red to PACU, Dr. carranza made aware of happenings. Cardizem 5mg and lopressor 2.5mg given as per dr. Carranza. Will transfer patient to telemtery once stable. Objective - Vital Signs/Intake and Output Vital Signs (last 24 hours): Temp Pulse Resp BP Pulse Ox 97.7 F 81 20 105/62 97 07/05/18 07:00 07/05/18 08:00 07/05/18 07:00 07/05/18 07:00 07/05/18 07:00 Intake and Output: 07/05/18 07/05/18 06:59 18:59 Intake Total 100 Output Total 8 Balance 92 - Medications Medications: Current Medications Acetaminophen (Tylenol 325mg Tab) 650 mg PO Q6 PRN PRN Reason: for fever Last Admin: 07/05/18 00:23 Dose: 650 mg Epoetin Milton (Procrit) 10,000 unit IV TTS [facility] Last Admin: 07/05/18 09:55 Dose: Not Given Meropenem 500 mg/ Sodium (Chloride) 100 mls @ 100 mls/hr IVPB Q12H [facility]; Protocol Last Admin: 07/05/18 09:54 Dose: 100 mls/hr Metoprolol Succinate (Toprol Xl) 25 mg PO DAILY [facility] Last Admin: 07/05/18 09:49 Dose: 25 mg Pantoprazole Sodium (Protonix Ec Tab) 40 mg PO DAILY [facility] Last Admin: 07/05/18 09:52 Dose: 40 mg Pyridoxine HCl (Vitamin B6 50 Mg Tab) 50 mg PO DAILY [facility] Last Admin: 07/05/18 09:52 Dose: 50 mg Sevelamer Carbonate (Renvela) 800 mg PO TIDCC [facility] Last Admin: 07/05/18 09:00 Dose: 800 mg - Labs Labs: 07/05/18 06:40 07/05/18 06:40 PT 11.5 SECONDS (9.7-12.2) 07/05/18 06:40 INR 1.1 07/05/18 06:40 APTT 35 SECONDS (21-34) H 07/05/18 06:40
[2018-07-05] MEDS ORDERED: Bupivacaine 0.25% 20 ML INJ IJ ONE (13:34)
[2018-07-05] MEDS ORDERED: Midazolam 2 MG/2 ML VIAL ONE ×2 (13:40→15:45)
[2018-07-05] MEDS ORDERED: Propofol 10 mg/ml Inj (20 ML) ONE (13:40)
[2018-07-05] MEDS ORDERED: Bupivacaine Liposomal Inj 20 ml INJ ONE (13:42)
[2018-07-05] MEDS ORDERED: Bupivacaine HCl 0.5% PF (10 ml) Inj ONE (13:45)
[2018-07-05] MEDS: Lidocaine Hydrochloride 10 ML INJ ONE ×2 (14:04→14:45)
[2018-07-05] MEDS ORDERED: Neostigmine 1:1000 (1 mg/ml) Inj ONE (14:25)
[2018-07-05] MEDS ORDERED: HYDROmorphone 0.5 mg/0.5 ml ISec IVP PRN (15:06)
--- NOTE | 2018-07-05 15:22 | PCM.SURG1 ---
Surgeon's Initial Post Op Note - Surgeon's Notes Surgeon: Dr. Lemons Patient Access Associate: Dr. Recinos PGY-4 Type of Anesthesia: General Endo, Local Pre-Operative Diagnosis: Right loculated pleural effusion Operative Findings: see operative report Post-Operative Diagnosis: Right loculated pleural effusion Operation Performed: Right VATS with right lower lobe lung biopsy and pleural biopsy, Exparel block Specimen/Specimens Removed: right lower lobe biopsy, pleural biopsy Estimated Blood Loss: EBL {In ML}: 15 Blood Products Given: N/A Drains Used: Chest Tubes (28Fr) Post-Op Condition: Fair Date of Surgery/Procedure: 07/05/18 Time of Surgery/Procedure: 15:21
--- NOTE | 2018-07-05 16:16 | CP.PCM.CON ---
<Zbigniew Allen - Last Filed: 07/05/18 18:19> Meds Allergies/Adverse Reactions: Allergies Allergy/AdvReac Type Severity Reaction Status Date / Time No Known Allergies Allergy Verified 06/25/18 11:22 - Medications Medications: Current Medications Acetaminophen (Tylenol 325mg Tab) 650 mg PO Q6 PRN PRN Reason: for fever Last Admin: 07/05/18 00:23 Dose: 650 mg Epoetin Milton (Procrit) 10,000 unit IV TTS [facility] Last Admin: 07/05/18 09:55 Dose: Not Given Ethambutol HCl (Myambutol) 800 mg PO TTS [facility]; Protocol Hydromorphone HCl (Dilaudid) 0.5 mg IVP Q4H PRN PRN Reason: Pain, moderate (4-7) Meropenem 500 mg/ Sodium (Chloride) 100 mls @ 100 mls/hr IVPB Q12H [facility]; Protocol Last Admin: 07/05/18 09:54 Dose: 100 mls/hr Propofol (Diprivan) 1,000 mg in 100 mls @ 1.309 mls/hr IV .Q24H [facility]; Protocol PRN Reason: TITRATE PER MD ORDER Last Admin: 07/05/18 16:23 Dose: 20 mcg/kg/min, 5.236 mls/hr Isoniazid (Niazid) 300 mg PO DAILY [facility]; Protocol Metoprolol Succinate (Toprol Xl) 25 mg PO DAILY [facility] Last Admin: 07/05/18 09:49 Dose: 25 mg Ondansetron HCl (Zofran Inj) 4 mg IVP Q4 PRN PRN Reason: Nausea/Vomiting Pantoprazole Sodium (Protonix Ec Tab) 40 mg PO DAILY [facility] Last Admin: 07/05/18 09:52 Dose: 40 mg Pyrazinamide (Pyrazinamide) 1,000 mg PO TTS [facility]; Protocol Pyridoxine HCl (Vitamin B6 50 Mg Tab) 50 mg PO DAILY [facility] Last Admin: 07/05/18 09:52 Dose: 50 mg Rifampin (Rifampin) 450 mg PO DAILY [facility]; Protocol Sevelamer Carbonate (Renvela) 800 mg PO TIDCC [facility] Last Admin: 07/05/18 13:21 Dose: Not Given Results - Vital Signs Recent Vital Signs: Last Vital Signs Temp 97.9 F 07/05/18 16:00 Pulse 81 02/26/19 17:48 Resp 12 07/05/18 17:48 BP 85/55 L 07/05/18 17:48 Pulse Ox 100 07/05/18 17:48 - Labs Result Diagrams: 07/05/18 06:40 07/05/18 06:40 Labs: Laboratory Results - last 24 hr 06/27/18 07/05/18 07/05/18 06:28 06:40 06:40 WBC 3.5 L RBC 2.94 L Hgb 9.5 L Hct 28.8 L MCV 98.1 MCH 32.5 H MCHC 33.1 RDW 17.1 H Plt Count 237 MPV 7.4 PT INR APTT Puncture Site pCO2 pO2 HCO3 ABG pH ABG Total CO2 ABG O2 Saturation ABG Base Excess Yang Test ABG Potassium A-a O2 Difference Respiratory Index Glucose Lactate Vent Mode Mechanical Rate FiO2 Tidal Volume PEEP Sodium 133 Potassium 3.7 Chloride 96 L Carbon Dioxide 32 H Anion Gap 9 L BUN 16 Creatinine 4.4 H Est GFR ( Amer) 13 Est GFR (Non-Af Amer) 11 Random Glucose 90 Calcium 9.2 Phosphorus 4.2 Magnesium 2.0 PTH Related Protein 80 H Arterial Blood Potassium 07/05/18 07/05/18 06:40 16:54 WBC RBC Hgb Hct MCV MCH MCHC RDW Plt Count MPV PT 11.5 INR 1.1 APTT 35 H Puncture Site Rb pCO2 32 L pO2 426 H HCO3 29.6 H ABG pH 7.55 H ABG Total CO2 29.0 H ABG O2 Saturation 99.9 H ABG Base Excess 5.9 H Yang Test Na ABG Potassium 4.2 A-a O2 Difference 247.0 Respiratory Index 0.6 Glucose 92 Lactate 1.0 Vent Mode A/c Mechanical Rate 14 FiO2 100.0 Tidal Volume 450 PEEP 5 Sodium 135.0 Potassium Chloride 107.0 Carbon Dioxide Anion Gap BUN Creatinine Est GFR ( Amer) Est GFR (Non-Af Amer) Random Glucose Calcium Phosphorus Magnesium PTH Related Protein Arterial Blood Potassium 4.2 Assessment & Plan (1) Pleural effusion Status: Acute (2) ESRD (end stage renal disease) Status: Acute Attending/Attestation - Attestation I have personally seen and examined this patient.: Yes I have fully participated in the care of the patient.: Yes I have reviewed all pertinent clinical information: Yes Notes (Text): 07/05/18 18:19 Patient seen and examined 47-year-old female transferred to intensive care unit after she got reintubated in the PACU for respiratory distress Patient status post VATS and lung biopsy IV sedation Continue antibiotics Ventilatory support Follow-up lung biopsy pathology <Rafi Ellison - Last Filed: 07/05/18 19:58> History of Present Illness - History of Present Illness History of Present Illness: Critical care consult note for Dr. Allen Consult for respiratory distress s/p VATs procedure, POD #0 47 year old female with PMHx of ESRD, recurrent pleural effusions, and HTN, who was admitted to the hospital on 06/25/2018 for shortness of breath, persistent flevers and pleural effusions. After a prolonged hospitalization, including ICU admission, chest tube placement by IR, and subsequent downgrade to telemetry, patient is s/p right lung VATS, lung biopsy, and chest tube insertion today. Following extubation and transfer to PACU after procedure, patient became tachypneic, began utilizing accessory muscles, and shallow breathing. Anesthesia placed patient on BiPAP with no improvement. Patient was subsequently intubated in PACU by anesthesia and transferred to ICU. PMHx: ESRD on hemodialysis TTHS, HTN Allergies: NKDA PSHx: PD cath insertion & removal, AV fistula, permacath placement, VATS (06/15/18) Social Hx: . Denies alcohol, tobacco, or illicit drug use Review of Systems - Review of Systems Systems not reviewed;Unavailable: Intubated Past Patient History - Infectious Disease Hx of Infectious Diseases: None - Tetanus Immunizations Tetanus Immunization: Unknown - Past Medical History & Family History Past Medical History?: Yes - Past Social History Smoking Status: Never Smoked - CARDIAC Hx Cardiac Disorders: Yes Hx Hypertension: Yes - PULMONARY Hx Respiratory Disorders: Yes Hx Asthma: Yes - NEUROLOGICAL Hx Neurological Disorder: No - HEENT Hx HEENT Problems: No - RENAL Hx Chronic Kidney Disease: Yes Hx Dialysis: Yes Type of Dialysis Access: rt. permacath Date of Last Dialysis Treatment: 06/23/18 Hx Kidney Stones: No Other/Comment: HD [facility] - ENDOCRINE/METABOLIC Hx Endocrine Disorders: No - HEMATOLOGICAL/ONCOLOGICAL Hx Blood Disorders: Yes Hx Blood Transfusions: Yes () - INTEGUMENTARY Hx Dermatological Problems: No - MUSCULOSKELETAL/RHEUMATOLOGICAL Hx Musculoskeletal Disorders: No Hx Falls: No - GASTROINTESTINAL Hx Gastrointestinal Disorders: No - GENITOURINARY/GYNECOLOGICAL Hx Genitourinary Disorders: No - PSYCHIATRIC Hx Psychophysiologic Disorder: No Hx Substance Use: No - SURGICAL HISTORY Hx Surgeries: Yes Other/Comment: left lung drain - ANESTHESIA Hx Anesthesia: No Hx Anesthesia Reactions: No Meds - Medications Medications: Current Medications Acetaminophen (Tylenol 325mg Tab) 650 mg PO Q6 PRN PRN Reason: for fever Last Admin: 07/05/18 00:23 Dose: 650 mg Epoetin Milton (Procrit) 10,000 unit IV TTS [facility] Last Admin: 07/05/18 09:55 Dose: Not Given Hydromorphone HCl (Dilaudid) 0.5 mg IVP Q5M PRN PRN Reason: Pain, severe (8-10) Stop: 07/05/18 17:06 Hydromorphone HCl (Dilaudid) 0.5 mg IVP Q4H PRN PRN Reason: Pain, moderate (4-7) Meropenem 500 mg/ Sodium (Chloride) 100 mls @ 100 mls/hr IVPB Q12H [facility]; Protocol Last Admin: 07/05/18 09:54 Dose: 100 mls/hr Propofol (Diprivan) 1,000 mg in 100 mls @ 1.309 mls/hr IV .Q24H [facility]; Protocol PRN Reason: TITRATE PER MD ORDER Metoprolol Succinate (Toprol Xl) 25 mg PO DAILY [facility] Last Admin: 07/05/18 09:49 Dose: 25 mg Ondansetron HCl (Zofran Inj) 4 mg IVP Q4 PRN PRN Reason: Nausea/Vomiting Pantoprazole Sodium (Protonix Ec Tab) 40 mg PO DAILY [facility] Last Admin: 07/05/18 09:52 Dose: 40 mg Pyridoxine HCl (Vitamin B6 50 Mg Tab) 50 mg PO DAILY [facility] Last Admin: 07/05/18 09:52 Dose: 50 mg Sevelamer Carbonate (Renvela) 800 mg PO TIDCC [facility] Last Admin: 07/05/18 13:21 Dose: Not Given Physical Exam - Constitutional Appears: Other (intubated) - Head Exam Head Exam: ATRAUMATIC, NORMAL INSPECTION, NORMOCEPHALIC - Eye Exam Eye Exam: Normal appearance - ENT Exam ENT Exam: Mucous Membranes Moist - Respiratory Exam Additional comments: on ventilator 12/400/5/40 chest tube on R side, 100 cc blood drained - Cardiovascular Exam Cardiovascular Exam: +S1, +S2. absent: Systolic Murmur - GI/Abdominal Exam GI & Abdominal Exam: Normal Bowel Sounds, Soft. absent: Distended, Firm - Neurological Exam Additional comments: intubated - Skin Skin Exam: Dry, Intact, Normal Color, Warm Results - Vital Signs Recent Vital Signs: Last Vital Signs Temp 97.5 F L 07/05/18 15:03 Pulse 89 07/05/18 15:03 Resp 38 H 07/05/18 15:03 BP 146/81 07/05/18 15:03 Pulse Ox 100 07/05/18 15:03 - Labs Result Diagrams: 07/05/18 06:40 07/05/18 06:40 Labs: Laboratory Results - last 24 hr 06/27/18 07/05/18 07/05/18 06:28 06:40 06:40 WBC 3.5 L RBC 2.94 L Hgb 9.5 L Hct 28.8 L MCV 98.1 MCH 32.5 H MCHC 33.1 RDW 17.1 H Plt Count 237 MPV 7.4 PT INR APTT Sodium 133 Potassium 3.7 Chloride 96 L Carbon Dioxide 32 H Anion Gap 9 L BUN 16 Creatinine 4.4 H Est GFR ( Amer) 13 Est GFR (Non-Af Amer) 11 Random Glucose 90 Calcium 9.2 Phosphorus 4.2 Magnesium 2.0 PTH Related Protein 80 H 07/05/18 06:40 WBC RBC Hgb Hct MCV MCH MCHC RDW Plt Count MPV PT 11.5 INR 1.1 APTT 35 H Sodium Potassium Chloride Carbon Dioxide Anion Gap BUN Creatinine Est GFR ( Amer) Est GFR (Non-Af Amer) Random Glucose Calcium Phosphorus Magnesium PTH Related Protein Assessment & Plan - Assessment and Plan (Free Text) Assessment: Patient is a 47 year old female with PMHx of ESRD, recurrent pleural effusions, and HTN, s/p right VATS, lung biopsy, and chest tube placement, POD #0 was reintubated following episode of tachypnea & shallow breathing Plan: Neuro - Sedated, intubated - Diprivan - no acute issues - will attempt to wean Cardiac - Hx of HTN - continue metoprolol 25mg daily - Echo 06/26: EF 50-55%, discontinuity of interatrial septum is suggestive of ASD, trace aortic regurgitation, mild mitral regurg, mild to moderate tricuspid regurg, mild-moderate pHTN Pulm - Intubated - ABG 7.55/32/426/29.6 - Adjusted vent settings: PRVC 14/450/5/100 - CXR 07/05: ET tube in place, rexpansion of R lung - F/u CXR in AM - F/u ABG in AM - Right Chest tube (28Fr) in place - to wall suction - continue to monitor output - management per surgery - f/u lung biopsy - f/u AFB cultures GI - NPO - NGT for PO meds - Zofran 4mg PRN for nausea - Protonix 40mg for GI ppx Heme - H/H 9.5/28.8 - continue to monitor Renal - ESRD, hemodialysis MWF - continue Procrit ID - Febrile, Tmax 101.6F - concern for TB - Positive Quanteferon gold x2 - negative AFB smears x3 - previous VATS (06/15/18) with pleural bx demonstrating non-caseating granulomas - continue Rifampin, Isoniazid, Pyridoxine, Ethambutoal - CRP (06/30): + 69.5 - ESR ( 06/30): +103 - continue Meropenem - Tylenol PRN for fever - f/u ID recs-- Dr. Awan PPx - GI ppx-- Protonix 40mg - DVT ppx-- SCDs - Pain ppx: Dilaudid IVP
[2018-07-05] MEDS: Propofol 10 mg/ml 1,000 MG/100 ML VIAL IV PRN (16:23)
[2018-07-05 16:57] LABS: ARTERIAL BLOOD GAS HCO3 29.6 mmol/L (21-28); ARTERIAL BLOOD GAS O2 SAT 99.9 % (95-98); ARTERIAL BLOOD GAS PCO2 32 mm/Hg (35-45); ARTERIAL BLOOD GAS PH 7.55 (7.35-7.45); ARTERIAL BLOOD GAS PO2 426 mm/Hg (80-100)
[2018-07-05] MEDS ORDERED: Sodium Chloride 0.9% 250 ML IV ONE (17:35)
--- NOTE | 2018-07-05 17:35 | CP.PCM.CON ---
History of Present Illness - History of Present Illness History of Present Illness: 47 yof s/p right VATS, right lower lobe biopsy, right pleural biopsy. Preop patient was noticed to have fevers, including last night. It was discussed with thoracic surgeon whether to proceed with surgery in light of fever and possible sepsis, surgeon stated that benefit is greater then risk, and patient needed this surgery to diagnose possible TB, fungal infection cause despite multiple antibiotics she continued to have fevers. Intraop course was stable, at the end patient had 4/4 twitches was reversed and extubated. Patient was conversational after extubation, in PACU she started having rapid shallow breathing, CXR was done and trial of BIPAP was given. Dr Allen was consulted with whom we discussed the need for pt to be intubated due to tiring out. Patient was taken back to OR for reintubation. Patient was explained that intubation was neccessary due to her splinting and she agreed to it. 2 mg versed was given, cisatracurium, sevo and patient was succesfully intubated on the first try with MAC 3 tube 7.0 , ETCO2 plus, BS BL and equal, tube taped at 21 cm at lip, atraumatic. Patient was brought to ICU bed 3 with stable vss, BP 127/65, HR 102, sat 100%. Propofol drip was oredred immediately by the resident. I spoke to the of the need for pt to be intubated postop, he understands. Continue care as per ICU. Past Patient History - Infectious Disease Hx of Infectious Diseases: None - Tetanus Immunizations Tetanus Immunization: Unknown - Past Medical History & Family History Past Medical History?: Yes - Past Social History Smoking Status: Never Smoked - CARDIAC Hx Cardiac Disorders: Yes Hx Hypertension: Yes - PULMONARY Hx Respiratory Disorders: Yes Hx Asthma: Yes - NEUROLOGICAL Hx Neurological Disorder: No - HEENT Hx HEENT Problems: No - RENAL Hx Chronic Kidney Disease: Yes Hx Dialysis: Yes Type of Dialysis Access: rt. permacath Date of Last Dialysis Treatment: 06/23/18 Hx Kidney Stones: No Other/Comment: HD [facility] - ENDOCRINE/METABOLIC Hx Endocrine Disorders: No - HEMATOLOGICAL/ONCOLOGICAL Hx Blood Disorders: Yes Hx Blood Transfusions: Yes () - INTEGUMENTARY Hx Dermatological Problems: No - MUSCULOSKELETAL/RHEUMATOLOGICAL Hx Musculoskeletal Disorders: No Hx Falls: No - GASTROINTESTINAL Hx Gastrointestinal Disorders: No - GENITOURINARY/GYNECOLOGICAL Hx Genitourinary Disorders: No - PSYCHIATRIC Hx Psychophysiologic Disorder: No Hx Substance Use: No - SURGICAL HISTORY Hx Surgeries: Yes Other/Comment: left lung drain - ANESTHESIA Hx Anesthesia: No Hx Anesthesia Reactions: No Meds Allergies/Adverse Reactions: Allergies Allergy/AdvReac Type Severity Reaction Status Date / Time No Known Allergies Allergy Verified 06/25/18 11:22 - Medications Medications: Current Medications Acetaminophen (Tylenol 325mg Tab) 650 mg PO Q6 PRN PRN Reason: for fever Last Admin: 07/05/18 00:23 Dose: 650 mg Epoetin Milton (Procrit) 10,000 unit IV TTS [facility] Last Admin: 07/05/18 09:55 Dose: Not Given Ethambutol HCl (Myambutol) 800 mg PO TTS [facility]; Protocol Hydromorphone HCl (Dilaudid) 0.5 mg IVP Q4H PRN PRN Reason: Pain, moderate (4-7) Meropenem 500 mg/ Sodium (Chloride) 100 mls @ 100 mls/hr IVPB Q12H [facility]; Protocol Last Admin: 07/05/18 09:54 Dose: 100 mls/hr Propofol (Diprivan) 1,000 mg in 100 mls @ 1.309 mls/hr IV .Q24H PRN; Protocol PRN Reason: TITRATE PER MD ORDER Last Admin: 07/05/18 16:23 Dose: 20 mcg/kg/min, 5.236 mls/hr Isoniazid (Niazid) 300 mg PO DAILY [facility]; Protocol Metoprolol Succinate (Toprol Xl) 25 mg PO DAILY [facility] Last Admin: 07/05/18 09:49 Dose: 25 mg Ondansetron HCl (Zofran Inj) 4 mg IVP Q4 PRN PRN Reason: Nausea/Vomiting Pantoprazole Sodium (Protonix Ec Tab) 40 mg PO DAILY [facility] Last Admin: 07/05/18 09:52 Dose: 40 mg Pyrazinamide (Pyrazinamide) 1,000 mg PO TTS [facility]; Protocol Pyridoxine HCl (Vitamin B6 50 Mg Tab) 50 mg PO DAILY [facility] Last Admin: 07/05/18 09:52 Dose: 50 mg Rifampin (Rifampin) 450 mg PO DAILY [facility]; Protocol Sevelamer Carbonate (Renvela) 800 mg PO TIDCC [facility] Last Admin: 07/05/18 13:21 Dose: Not Given Results - Vital Signs Recent Vital Signs: Last Vital Signs Temp 97.7 F 07/05/18 07:00 Pulse 75 07/05/18 17:05 Resp 12 07/05/18 17:05 BP 84/57 L 07/05/18 17:05 Pulse Ox 100 07/05/18 17:05 - Labs Result Diagrams: 07/05/18 06:40 07/05/18 06:40 Labs: Laboratory Results - last 24 hr 06/27/18 07/05/18 07/05/18 06:28 06:40 06:40 WBC 3.5 L RBC 2.94 L Hgb 9.5 L Hct 28.8 L MCV 98.1 MCH 32.5 H MCHC 33.1 RDW 17.1 H Plt Count 237 MPV 7.4 PT INR APTT Puncture Site pCO2 pO2 HCO3 ABG pH ABG Total CO2 ABG O2 Saturation ABG Base Excess Yang Test ABG Potassium A-a O2 Difference Respiratory Index Glucose Lactate Vent Mode Mechanical Rate FiO2 Tidal Volume PEEP Sodium 133 Potassium 3.7 Chloride 96 L Carbon Dioxide 32 H Anion Gap 9 L BUN 16 Creatinine 4.4 H Est GFR ( Amer) 13 Est GFR (Non-Af Amer) 11 Random Glucose 90 Calcium 9.2 Phosphorus 4.2 Magnesium 2.0 PTH Related Protein 80 H Arterial Blood Potassium 07/05/18 07/05/18 06:40 16:54 WBC RBC Hgb Hct MCV MCH MCHC RDW Plt Count MPV PT 11.5 INR 1.1 APTT 35 H Puncture Site Rb pCO2 32 L pO2 426 H HCO3 29.6 H ABG pH 7.55 H ABG Total CO2 29.0 H ABG O2 Saturation 99.9 H ABG Base Excess 5.9 H Yang Test Na ABG Potassium 4.2 A-a O2 Difference 247.0 Respiratory Index 0.6 Glucose 92 Lactate 1.0 Vent Mode A/c Mechanical Rate 14 FiO2 100.0 Tidal Volume 450 PEEP 5 Sodium 135.0 Potassium Chloride 107.0 Carbon Dioxide Anion Gap BUN Creatinine Est GFR ( Amer) Est GFR (Non-Af Amer) Random Glucose Calcium Phosphorus Magnesium PTH Related Protein Arterial Blood Potassium 4.2
--- NOTE | 2018-07-05 18:46 | RAD ---
Date of service: 07/05/2018 HISTORY: postop COMPARISON: 07/03/2018. FINDINGS: LUNGS: Consolidative changes have improved right lower lobe. PLEURA: Decrease in right pleural effusion following chest tube placement. The tip is in the apex. No visible pneumothorax. CARDIOVASCULAR: No atherosclerotic calcification present No radiographic findings to suggest acute or significant cardiovascular disease. Venous access catheter in stable, satisfactory position. OSSEOUS STRUCTURES: No significant abnormalities. VISUALIZED UPPER ABDOMEN: Normal. OTHER FINDINGS: None. IMPRESSION: Decrease in right pleural effusion, commensurate re-expansion of right lung. No pneumothorax following chest tube placement.
--- NOTE | 2018-07-05 18:53 | RAD ---
Date of service: 07/05/2018 HISTORY: post intubation COMPARISON: July 05, 2018 Time of the most recent examination: 15:19. FINDINGS: LUNGS: Stable findings right lung. PLEURA: Stable position of chest tube in the right pleural space. No pneumothorax. CARDIOVASCULAR: No atherosclerotic calcification present Venous access catheter in stable, satisfactory position. OSSEOUS STRUCTURES: No significant abnormalities. VISUALIZED UPPER ABDOMEN: Normal. OTHER FINDINGS: Satisfactory position of recently placed endotracheal tube. IMPRESSION: Satisfactory position of recently placed endotracheal tube. Otherwise no interval change.
[2018-07-05] MEDS ORDERED: Sodium Chloride 0.9% 500 ML IV ONE ×2 (19:56→21:50)
[2018-07-06] MEDS: Propofol 10 mg/ml 1,000 MG/100 ML VIAL IV PRN (04:22)
[2018-07-06 05:46] LABS: ARTERIAL BLOOD GAS HCO3 21.9 mmol/L (21-28); ARTERIAL BLOOD GAS HEMOGLOBIN 12.4 g/dL (11.7-17.4); ARTERIAL BLOOD GAS O2 SAT 99.2 % (95-98); ARTERIAL BLOOD GAS PCO2 36 mm/Hg (35-45); ARTERIAL BLOOD GAS PH 7.37 (7.35-7.45); ARTERIAL BLOOD GAS PO2 196 mm/Hg (80-100); ARTERIAL BLOOD GAS TCO2 21.9 mmol/L (22-28)
[2018-07-06 06:19] LABS: BASO % 0.5 % (0.0-2.0); EOS # 0.2 K/uL (0.0-0.7); HEMOGLOBIN 8.7 g/dL (11.0-16.0); LYMPH # 0.6 K/uL (1.0-4.3); LYMPH % 13.7 % (20.0-40.0); MEAN CELL VOLUME 99.4 fL (81.0-99.0); MEAN CORPUSCULAR HGB CONC 32.2 g/dL (33.0-37.0); MEAN PLATELET VOLUME 8.2 fL (7.2-11.7); MONO # 0.4 K/uL (0.0-0.8); MONO % 8.4 % (0.0-10.0); NEUT # 3.4 K/uL (1.8-7.0); NEUT % 73.4 % (50.0-75.0); RBC 2.71 Mil/uL (3.80-5.20); RED CELL DISTRIBUTION WIDTH 17.4 % (11.5-14.5); WHITE BLOOD COUNT 4.6 K/uL (4.8-10.8)
[2018-07-06 06:41] LABS: ALB/GLOB RATIO 0.8 (1.0-2.1); ALBUMIN 2.8 g/dL (3.5-5.0); CALCIUM 8.3 mg/dl (8.6-10.4)
[2018-07-06] MEDS ORDERED: Sodium Chloride 0.9% 500 ML IV ONE (06:43)
[2018-07-06] MEDS ORDERED: Dextrose 50% SYRINGE Inj (50 ml) ONE (07:09)
[2018-07-06] MEDS ORDERED: Dextrose 50% SYRINGE Inj (50 ml) IV STA (07:10)
--- NOTE | 2018-07-06 07:21 | CP.CCUPN ---
CCU Objective - Vital Signs / Intake & Output Vital Signs (Last 4 hours): Vital Signs Temp Pulse Resp BP Pulse Ox 07/06/18 06:37 79 12 88/50 L 07/06/18 06:30 81 12 100 07/06/18 06:26 79 12 80/46 L 100 07/06/18 06:00 79 12 100 07/06/18 05:56 80 12 95/51 L 100 07/06/18 05:30 77 19 100 07/06/18 05:29 77 12 87/42 L 100 07/06/18 05:26 78 14 83/46 L 100 07/06/18 05:18 75 16 93/49 L 100 07/06/18 05:00 81 17 100 07/06/18 04:56 76 12 84/51 L 100 07/06/18 04:30 76 12 100 07/06/18 04:26 76 12 85/47 L 100 07/06/18 04:00 98.1 F 76 12 100 07/06/18 03:56 75 12 90/49 L 100 07/06/18 03:30 76 12 100 07/06/18 03:26 75 12 85/52 L 100 Intake and Output (Last 8hrs): Intake & Output 07/05/18 07/06/18 07/06/18 22:59 06:59 14:59 Intake Total 629.5 1134.1 Output Total 130 70 Balance 499.5 1064.1 Weight 105 lb Intake: IV 0 100 Intake, IV Amount 629.5 1034.1 Right Forearm 29.5 34.1 Right Hand 600 1000 Output: Chest Tube Drainage 130 70 Right 130 70 Urine 0 Urine, Voided 0 Other: # Bowel Movements 0 - Physical Exam Head: Positive for: Atraumatic, Normocephalic Pupils: Positive for: PERRL Extroacular Muscles: Positive for: EOMI Conjunctiva: Positive for: Normal Mouth: Positive for: Moist Mucous Membranes. Negative for: Dry Neck: Positive for: Normal Range of Motion. Negative for: JVD Respiratory/Chest: Positive for: Other (right lung sounds diminshed) Cardiovascular: Positive for: Regular Rate and Rhythm, Normal S1, S2 Abdomen: Positive for: Normal Bowel Sounds. Negative for: Tenderness Upper Extremity: Positive for: Normal Inspection Lower Extremity: Positive for: Normal Inspection Neurological: Positive for: CN II-XII Intact, Speech Normal Skin: Positive for: Warm, Dry, Normal Color Psychiatric: Positive for: Alert, Oriented x 3, Normal Insight - Medications Active Medications: Active Medications Generic Name Dose Route Start Last Admin Trade Name Freq PRN Reason Stop Dose Admin Acetaminophen 650 mg 06/26/18 21:40 07/05/18 00:23 Tylenol 325mg Tab PO 650 mg Q6 PRN Administration for fever Epoetin Milton 10,000 unit 07/02/18 10:00 07/05/18 09:55 Procrit IV Not Given TTS [facility] Ethambutol HCl 800 mg 07/07/18 10:00 Myambutol PO TTS [facility] Protocol Hydromorphone HCl 0.5 mg 07/05/18 15:18 Dilaudid IVP Q4H PRN Pain, moderate (4-7) Meropenem 500 mg/ Sodium 100 mls @ 100 mls/hr 06/29/18 22:00 07/05/18 21:29 Chloride IVPB 100 mls/hr Q12H [facility] Administration Protocol Propofol 1,000 mg in 100 mls @ 1.309 mls/hr 07/05/18 16:04 07/06/18 04:22 Diprivan IV 11.45 mcg/kg/min .Q24H PRN 3 mls/hr TITRATE PER MD ORDER Administration Protocol 5 MCG/KG/MIN Isoniazid 300 mg 07/05/18 17:00 07/05/18 18:29 Niazid PO 300 mg DAILY [facility] Administration Protocol Metoprolol Succinate 25 mg 07/04/18 18:00 07/05/18 09:49 Toprol Xl PO 25 mg DAILY [facility] Administration Ondansetron HCl 4 mg 07/05/18 15:17 Zofran Inj IVP Q4 PRN Nausea/Vomiting Pantoprazole Sodium 40 mg 06/26/18 10:00 07/05/18 09:52 Protonix Ec Tab PO 40 mg DAILY [facility] Administration Pyrazinamide 1,000 mg 07/07/18 10:00 Pyrazinamide PO TTS [facility] Protocol Pyridoxine HCl 50 mg 06/30/18 11:04 07/05/18 09:52 Vitamin B6 50 Mg Tab PO 50 mg DAILY [facility] Administration Rifampin 450 mg 07/06/18 10:00 Rifampin PO DAILY [facility] Protocol Sevelamer Carbonate 800 mg 06/26/18 17:00 07/05/18 18:28 Renvela PO 800 mg TIDCC [facility] Administration - Patient Studies Lab Studies: Microbiology Studies 07/05/18 15:31 Gram Stain - Final Lung 07/05/18 13:00 Gram Stain - Final Pleural Fluid 07/05/18 13:00 Gram Stain - Final Other: Please Indicate Lab Studies 07/06/18 07/06/18 07/06/18 Range/Units 06:14 06:13 05:24 WBC 4.6 L (4.8-10.8) K/uL RBC 2.71 L (3.80-5.20) Mil/uL Hgb 8.7 L (11.0-16.0) g/dL Hct 26.9 L (34.0-47.0) % MCV 99.4 H (81.0-99.0) fL MCH 32.0 H (27.0-31.0) pg MCHC 32.2 L (33.0-37.0) g/dL RDW 17.4 H (11.5-14.5) % Plt Count 208 (130-400) K/uL MPV 8.2 (7.2-11.7) fL Neut % (Auto) 73.4 (50.0-75.0) % Lymph % (Auto) 13.7 L (20.0-40.0) % Gooding % (Auto) 8.4 (0.0-10.0) % Eos % (Auto) 4.0 (0.0-4.0) % Baso % (Auto) 0.5 (0.0-2.0) % Neut # (Auto) 3.4 (1.8-7.0) K/uL Lymph # (Auto) 0.6 L (1.0-4.3) K/uL Gooding # (Auto) 0.4 (0.0-0.8) K/uL Eos # (Auto) 0.2 (0.0-0.7) K/uL Baso # (Auto) 0.0 (0.0-0.2) K/uL Puncture Site Rb pCO2 36 (35-45) mm/Hg pO2 196 H (80-100) mm/Hg HCO3 21.9 (21-28) mmol/L ABG pH 7.37 (7.35-7.45) ABG Total CO2 21.9 L (22-28) mmol/L ABG O2 Saturation 99.2 H (95-98) % ABG Base Excess -3.9 L (-2.0-3.0) mmol/L ABG Hemoglobin 12.4 (11.7-17.4) g/dL ABG Carboxyhemoglobin 1.3 (0.5-1.5) % POC ABG HHb (Measured) 0.8 (0.0-5.0) % ABG Methemoglobin 0.9 (0.0-3.0) % Yang Test Na ABG Potassium (3.6-5.2) mmol/L A-a O2 Difference 44.0 mm/Hg Respiratory Index 0.2 Hgb O2 Saturation 97.0 (95.0-98.0) % Sodium 134 (132-148) mmol/l Chloride 101 (98-107) mmol/L Glucose (65-105) mg/dl Lactate (0.7-2.1) mmol/L Vent Mode Prvc Mechanical Rate 12 FiO2 40.0 % Tidal Volume 400 PEEP 5 Potassium 4.4 (3.6-5.2) mmol/L Carbon Dioxide 19 L (22-30) mmol/L Anion Gap 18 (10-20) BUN 27 H (7-17) mg/dL Creatinine 5.0 H (0.7-1.2) mg/dL Est GFR ( Amer) 11 Est GFR (Non-Af Amer) 9 Random Glucose 48 L D (65-105) mg/dL Calcium 8.3 L (8.6-10.4) mg/dl Phosphorus 6.5 H (2.5-4.5) mg/dL Magnesium 1.8 (1.6-2.3) mg/dL Total Bilirubin 0.8 (0.2-1.3) mg/dL AST 38 H D (14-36) U/L ALT 17 (9-52) U/L Alkaline Phosphatase 92 (38-126) U/L Total Protein 6.3 (6.3-8.3) g/dL Albumin 2.8 L (3.5-5.0) g/dL Globulin 3.5 (2.2-3.9) gm/dL Albumin/Globulin Ratio 0.8 L (1.0-2.1) Arterial Blood Potassium (3.6-5.2) mmol/L 07/05/18 Range/Units 16:54 WBC (4.8-10.8) K/uL RBC (3.80-5.20) Mil/uL Hgb (11.0-16.0) g/dL Hct (34.0-47.0) % MCV (81.0-99.0) fL MCH (27.0-31.0) pg MCHC (33.0-37.0) g/dL RDW (11.5-14.5) % Plt Count (130-400) K/uL MPV (7.2-11.7) fL Neut % (Auto) (50.0-75.0) % Lymph % (Auto) (20.0-40.0) % Gooding % (Auto) (0.0-10.0) % Eos % (Auto) (0.0-4.0) % Baso % (Auto) (0.0-2.0) % Neut # (Auto) (1.8-7.0) K/uL Lymph # (Auto) (1.0-4.3) K/uL Gooding # (Auto) (0.0-0.8) K/uL Eos # (Auto) (0.0-0.7) K/uL Baso # (Auto) (0.0-0.2) K/uL Puncture Site Rb pCO2 32 L (35-45) mm/Hg pO2 426 H (80-100) mm/Hg HCO3 29.6 H (21-28) mmol/L ABG pH 7.55 H (7.35-7.45) ABG Total CO2 29.0 H (22-28) mmol/L ABG O2 Saturation 99.9 H (95-98) % ABG Base Excess 5.9 H (-2.0-3.0) mmol/L ABG Hemoglobin (11.7-17.4) g/dL ABG Carboxyhemoglobin (0.5-1.5) % POC ABG HHb (Measured) (0.0-5.0) % ABG Methemoglobin (0.0-3.0) % Yang Test Na ABG Potassium 4.2 (3.6-5.2) mmol/L A-a O2 Difference 247.0 mm/Hg Respiratory Index 0.6 Hgb O2 Saturation (95.0-98.0) % Sodium 135.0 (132-148) mmol/l Chloride 107.0 (98-107) mmol/L Glucose 92 (65-105) mg/dl Lactate 1.0 (0.7-2.1) mmol/L Vent Mode A/c Mechanical Rate 14 FiO2 100.0 % Tidal Volume 450 PEEP 5 Potassium (3.6-5.2) mmol/L Carbon Dioxide (22-30) mmol/L Anion Gap (10-20) BUN (7-17) mg/dL Creatinine (0.7-1.2) mg/dL Est GFR ( Amer) Est GFR (Non-Af Amer) Random Glucose (65-105) mg/dL Calcium (8.6-10.4) mg/dl Phosphorus (2.5-4.5) mg/dL Magnesium (1.6-2.3) mg/dL Total Bilirubin (0.2-1.3) mg/dL AST (14-36) U/L ALT (9-52) U/L Alkaline Phosphatase (38-126) U/L Total Protein (6.3-8.3) g/dL Albumin (3.5-5.0) g/dL Globulin (2.2-3.9) gm/dL Albumin/Globulin Ratio (1.0-2.1) Arterial Blood Potassium 4.2 (3.6-5.2) mmol/L Laboratory Results - last 24 hr 07/05/18 07/06/18 07/06/18 16:54 05:24 06:13 WBC 4.6 L RBC 2.71 L Hgb 8.7 L Hct 26.9 L MCV 99.4 H MCH 32.0 H MCHC 32.2 L RDW 17.4 H Plt Count 208 MPV 8.2 Neut % (Auto) 73.4 Lymph % (Auto) 13.7 L Gooding % (Auto) 8.4 Eos % (Auto) 4.0 Baso % (Auto) 0.5 Neut # (Auto) 3.4 Lymph # (Auto) 0.6 L Gooding # (Auto) 0.4 Eos # (Auto) 0.2 Baso # (Auto) 0.0 Puncture Site Rb Rb pCO2 32 L 36 pO2 426 H 196 H HCO3 29.6 H 21.9 ABG pH 7.55 H 7.37 ABG Total CO2 29.0 H 21.9 L ABG O2 Saturation 99.9 H 99.2 H ABG Base Excess 5.9 H -3.9 L ABG Hemoglobin 12.4 ABG Carboxyhemoglobin 1.3 POC ABG HHb (Measured) 0.8 ABG Methemoglobin 0.9 Yang Test Na Na ABG Potassium 4.2 A-a O2 Difference 247.0 44.0 Respiratory Index 0.6 0.2 Hgb O2 Saturation 97.0 Sodium 135.0 Chloride 107.0 Glucose 92 Lactate 1.0 Vent Mode A/c Prvc Mechanical Rate 14 12 FiO2 100.0 40.0 Tidal Volume 450 400 PEEP 5 5 Potassium Carbon Dioxide Anion Gap BUN Creatinine Est GFR ( Amer) Est GFR (Non-Af Amer) Random Glucose Calcium Phosphorus Magnesium Total Bilirubin AST ALT Alkaline Phosphatase Total Protein Albumin Globulin Albumin/Globulin Ratio Arterial Blood Potassium 4.2 07/06/18 06:14 WBC RBC Hgb Hct MCV MCH MCHC RDW Plt Count MPV Neut % (Auto) Lymph % (Auto) Gooding % (Auto) Eos % (Auto) Baso % (Auto) Neut # (Auto) Lymph # (Auto) Gooding # (Auto) Eos # (Auto) Baso # (Auto) Puncture Site pCO2 pO2 HCO3 ABG pH ABG Total CO2 ABG O2 Saturation ABG Base Excess ABG Hemoglobin ABG Carboxyhemoglobin POC ABG HHb (Measured) ABG Methemoglobin Yang Test ABG Potassium A-a O2 Difference Respiratory Index Hgb O2 Saturation Sodium 134 Chloride 101 Glucose Lactate Vent Mode Mechanical Rate FiO2 Tidal Volume PEEP Potassium 4.4 Carbon Dioxide 19 L Anion Gap 18 BUN 27 H Creatinine 5.0 H Est GFR ( Amer) 11 Est GFR (Non-Af Amer) 9 Random Glucose 48 L D Calcium 8.3 L Phosphorus 6.5 H Magnesium 1.8 Total Bilirubin 0.8 AST 38 H D ALT 17 Alkaline Phosphatase 92 Total Protein 6.3 Albumin 2.8 L Globulin 3.5 Albumin/Globulin Ratio 0.8 L Arterial Blood Potassium Radiology Impressions: Radiology Impressions Chest X-Ray 07/05/18 15:14 IMPRESSION: Decrease in right pleural effusion, commensurate re-expansion of right lung. No pneumothorax following chest tube placement. Chest X-Ray 07/05/18 16:22 IMPRESSION: Satisfactory position of recently placed endotracheal tube. Otherwise no interval change. Fingerstick Blood Sugar Results: 96 Critical Care Progress Note - Nutrition Nutrition: Nutrition Category Date Time Status Renal Diet [DIET] Diets 07/05/18 Dinner Active
[2018-07-06] MEDS: HYDROmorphone 0.5 mg/0.5 ml ISec IVP PRN ×3 (07:54→23:12)
--- NOTE | 2018-07-06 08:25 | CP.PCM.PN ---
Subjective - Date & Time of Evaluation Date of Evaluation: 07/06/18 Time of Evaluation: 08:10 - Subjective Subjective: Pt intubated post Bx. Now awake on CPAP. (+) pain on CT site; no n/v, no diarrhea Objective - Vital Signs/Intake and Output Vital Signs (last 24 hours): Temp Pulse Resp BP Pulse Ox 98.1 F 79 12 88/50 L 100 07/06/18 04:00 07/06/18 06:37 07/06/18 06:37 07/06/18 06:37 07/06/18 06:30 Intake and Output: 07/06/18 07/06/18 06:59 18:59 Intake Total 1751.8 Output Total 70 Balance 1681.8 - Medications Medications: Current Medications Acetaminophen (Tylenol 325mg Tab) 650 mg PO Q6 PRN PRN Reason: for fever Last Admin: 07/05/18 00:23 Dose: 650 mg Epoetin Milton (Procrit) 10,000 unit IV TTS [facility] Last Admin: 07/05/18 09:55 Dose: Not Given Ethambutol HCl (Myambutol) 800 mg PO TTS [facility]; Protocol Hydromorphone HCl (Dilaudid) 0.5 mg IVP Q4H PRN PRN Reason: Pain, moderate (4-7) Last Admin: 07/06/18 07:54 Dose: 0.5 mg Meropenem 500 mg/ Sodium (Chloride) 100 mls @ 100 mls/hr IVPB Q12H [facility]; Protocol Last Admin: 07/05/18 21:29 Dose: 100 mls/hr Propofol (Diprivan) 1,000 mg in 100 mls @ 1.309 mls/hr IV .Q24H [facility]; Protocol PRN Reason: TITRATE PER MD ORDER Last Admin: 07/06/18 04:22 Dose: 11.45 mcg/kg/min, 3 mls/hr Isoniazid (Niazid) 300 mg PO DAILY [facility]; Protocol Last Admin: 07/05/18 18:29 Dose: 300 mg Metoprolol Succinate (Toprol Xl) 25 mg PO DAILY [facility] Last Admin: 07/05/18 09:49 Dose: 25 mg Ondansetron HCl (Zofran Inj) 4 mg IVP Q4 PRN PRN Reason: Nausea/Vomiting Pantoprazole Sodium (Protonix Ec Tab) 40 mg PO DAILY [facility] Last Admin: 07/05/18 09:52 Dose: 40 mg Pyrazinamide (Pyrazinamide) 1,000 mg PO TTS [facility]; Protocol Pyridoxine HCl (Vitamin B6 50 Mg Tab) 50 mg PO DAILY [facility] Last Admin: 07/05/18 09:52 Dose: 50 mg Rifampin (Rifampin) 450 mg PO DAILY [facility]; Protocol Sevelamer Carbonate (Renvela) 800 mg PO TIDCC [facility] Last Admin: 07/06/18 07:54 Dose: 800 mg - Labs Labs: 07/06/18 06:13 07/06/18 06:14 PT 11.5 SECONDS (9.7-12.2) 07/05/18 06:40 INR 1.1 07/05/18 06:40 APTT 35 SECONDS (21-34) H 07/05/18 06:40 - Constitutional Appears: No Acute Distress - Eye Exam Eye Exam: Normal appearance - ENT Exam ENT Exam: Mucous Membranes Moist - Neck Exam Neck Exam: Full ROM. absent: Normal Inspection, Thyromegaly - Respiratory Exam Respiratory Exam: Decreased Breath Sounds. absent: Rales, Rhonchi, Wheezes - Cardiovascular Exam Cardiovascular Exam: REGULAR RHYTHM, +S1, +S2. absent: Gallop, JVD - GI/Abdominal Exam GI & Abdominal Exam: Soft. absent: Tenderness - Extremities Exam Extremities Exam: Full ROM, Normal Capillary Refill. absent: Joint Swelling, Pedal Edema Assessment and Plan - Assessment and Plan (Free Text) Assessment: Resp Failure s/p Bx; Supportive care ? NGT to start feeding
[2018-07-06] MEDS: Meropenem 500 MG in Sodium Chloride 0.9% 100 ML IVPB SCH ×2 (09:30→21:20)
[2018-07-06] MEDS ORDERED: Epoetin Alfa 10,000 unit/ml Dialysis IV SCH (10:12)
--- NOTE | 2018-07-06 11:35 | RAD ---
Date of service: 07/06/2018 HISTORY: s/p Right VATS w/ RLL biopsy, chest tube COMPARISON: No prior. FINDINGS: In situ ETT, tip of which lies approximately 5.1 cm above boom. No change dual-lumen right IJ venous access catheter with tip in the SVC/RA junction. In situ NGT, the tip of which has not been included on this film though does lie well below EG junction. LUNGS: Mild bibasilar atelectasis and/or infiltrates with small bilateral effusions right larger than left.. PLEURA: As above. No pneumothorax apparent. CARDIOVASCULAR: No significant aortic atherosclerotic calcification identified. Heart appears enlarged. No pulmonary vascular congestion. OSSEOUS STRUCTURES: No significant abnormalities. VISUALIZED UPPER ABDOMEN: Normal. OTHER FINDINGS: None. IMPRESSION: Support lines and tubes as above. Bibasilar atelectasis and/or infiltrates and bilateral effusions right larger than left.
[2018-07-06] MEDS: Pantoprazole 40 mg EC Tab PO SCH (12:20)
[2018-07-06] MEDS: Metoprolol Succinate 25 mg XL Tab PO SCH (12:21)
--- NOTE | 2018-07-06 13:08 | CP.PCM.PN ---
Subjective - Date & Time of Evaluation Date of Evaluation: 07/06/18 Time of Evaluation: 13:06 - Subjective Subjective: s/p lung biopsy chest tube on right needed reintubation last night BP lowish unable to obtain ROS due to above Objective - Vital Signs/Intake and Output Vital Signs (last 24 hours): Temp Pulse Resp BP Pulse Ox 98.1 F 79 12 88/50 L 100 07/06/18 04:00 07/06/18 06:37 07/06/18 06:37 07/06/18 06:37 07/06/18 06:30 Intake and Output: 07/06/18 07/06/18 06:59 18:59 Intake Total 1751.8 Output Total 70 Balance 1681.8 - Medications Medications: Current Medications Acetaminophen (Tylenol 325mg Tab) 650 mg PO Q6 PRN PRN Reason: for fever Last Admin: 07/05/18 00:23 Dose: 650 mg Epoetin Milton (Procrit) 10,000 unit IV MWF [facility] Ethambutol HCl (Myambutol) 800 mg PO TTS [facility]; Protocol Hydromorphone HCl (Dilaudid) 0.5 mg IVP Q4H PRN PRN Reason: Pain, moderate (4-7) Last Admin: 07/06/18 07:54 Dose: 0.5 mg Meropenem 500 mg/ Sodium (Chloride) 100 mls @ 100 mls/hr IVPB Q12H [facility]; Protocol Last Admin: 07/06/18 09:30 Dose: 100 mls/hr Propofol (Diprivan) 1,000 mg in 100 mls @ 1.309 mls/hr IV .Q24H [facility]; Protocol PRN Reason: TITRATE PER MD ORDER Last Admin: 07/06/18 04:22 Dose: 11.45 mcg/kg/min, 3 mls/hr Isoniazid (Niazid) 300 mg PO DAILY [facility]; Protocol Last Admin: 07/06/18 09:57 Dose: 300 mg Metoprolol Succinate (Toprol Xl) 25 mg PO DAILY [facility] Last Admin: 07/06/18 12:21 Dose: 25 mg Ondansetron HCl (Zofran Inj) 4 mg IVP Q4 PRN PRN Reason: Nausea/Vomiting Pantoprazole Sodium (Protonix Ec Tab) 40 mg PO DAILY [facility] Last Admin: 07/06/18 12:20 Dose: 40 mg Pyrazinamide (Pyrazinamide) 1,000 mg PO TTS [facility]; Protocol Pyridoxine HCl (Vitamin B6 50 Mg Tab) 50 mg PO DAILY [facility] Last Admin: 07/06/18 09:57 Dose: 50 mg Rifampin (Rifampin) 450 mg PO DAILY [facility]; Protocol Last Admin: 07/06/18 09:57 Dose: 450 mg Sevelamer Carbonate (Renvela) 800 mg PO TIDCC [facility] Last Admin: 07/06/18 12:20 Dose: 800 mg - Labs Labs: 07/06/18 06:13 07/06/18 06:14 PT 11.5 SECONDS (9.7-12.2) 07/05/18 06:40 INR 1.1 07/05/18 06:40 APTT 35 SECONDS (21-34) H 07/05/18 06:40 - Constitutional Appears: Non-toxic, No Acute Distress - Head Exam Head Exam: ATRAUMATIC, NORMAL INSPECTION - Eye Exam Eye Exam: EOMI - ENT Exam ENT Exam: Mucous Membranes Moist - Neck Exam Neck Exam: Full ROM. absent: Lymphadenopathy - Respiratory Exam Respiratory Exam: Decreased Breath Sounds - Cardiovascular Exam Cardiovascular Exam: REGULAR RHYTHM. absent: Rubs - GI/Abdominal Exam GI & Abdominal Exam: Soft. absent: Tenderness - Extremities Exam Extremities Exam: absent: Pedal Edema - Neurological Exam Neurological Exam: Alert Assessment and Plan - Assessment and Plan (Free Text) Plan: hold HD until am chest tube and vent management per ICU await results of lung biopsy
[2018-07-06] MEDS ORDERED: HYDROmorphone 1 mg/ml ISec IVP ONE (16:38)
--- NOTE | 2018-07-06 16:53 | CP.PCM.PN ---
Subjective - Date & Time of Evaluation Date of Evaluation: 07/06/18 Time of Evaluation: 09:00 - Subjective Subjective: s/p VATS / chest tube / Lung Bx tolerated well Objective - Vital Signs/Intake and Output Vital Signs (last 24 hours): Temp Pulse Resp BP Pulse Ox 98.5 F 84 14 101/56 L 100 07/06/18 12:00 07/06/18 13:56 07/06/18 13:56 07/06/18 13:56 07/06/18 13:56 Intake and Output: 07/06/18 07/06/18 06:59 18:59 Intake Total 1751.8 229 Output Total 70 0 Balance 1681.8 229 - Medications Medications: Current Medications Acetaminophen (Tylenol 325mg Tab) 650 mg PO Q6 PRN PRN Reason: for fever Last Admin: 07/05/18 00:23 Dose: 650 mg Epoetin Milton (Procrit) 10,000 unit IV MWF [facility] Ethambutol HCl (Myambutol) 800 mg PO TTS [facility]; Protocol Hydromorphone HCl (Dilaudid) 0.5 mg IVP Q4H PRN PRN Reason: Pain, moderate (4-7) Last Admin: 07/06/18 13:52 Dose: 0.5 mg Meropenem 500 mg/ Sodium (Chloride) 100 mls @ 100 mls/hr IVPB Q12H [facility]; Protocol Last Admin: 07/06/18 09:30 Dose: 100 mls/hr Propofol (Diprivan) 1,000 mg in 100 mls @ 1.309 mls/hr IV .Q24H [facility]; Protocol PRN Reason: TITRATE PER MD ORDER Last Titration: 07/06/18 07:40 Dose: 0 mcg/kg/min, 0 mls/hr Isoniazid (Niazid) 300 mg PO DAILY [facility]; Protocol Last Admin: 07/06/18 09:57 Dose: 300 mg Metoprolol Succinate (Toprol Xl) 25 mg PO DAILY [facility] Last Admin: 07/06/18 12:21 Dose: 25 mg Ondansetron HCl (Zofran Inj) 4 mg IVP Q4 PRN PRN Reason: Nausea/Vomiting Pantoprazole Sodium (Protonix Ec Tab) 40 mg PO DAILY [facility] Last Admin: 07/06/18 12:20 Dose: 40 mg Pyrazinamide (Pyrazinamide) 1,000 mg PO TTS [facility]; Protocol Pyridoxine HCl (Vitamin B6 50 Mg Tab) 50 mg PO DAILY [facility] Last Admin: 07/06/18 09:57 Dose: 50 mg Rifampin (Rifampin) 450 mg PO DAILY [facility]; Protocol Last Admin: 07/06/18 09:57 Dose: 450 mg Sevelamer Carbonate (Renvela) 800 mg PO TIDCC [facility] Last Admin: 07/06/18 12:20 Dose: 800 mg - Labs Labs: 07/06/18 06:13 07/06/18 06:14 PT 11.5 SECONDS (9.7-12.2) 07/05/18 06:40 INR 1.1 07/05/18 06:40 APTT 35 SECONDS (21-34) H 07/05/18 06:40 - Constitutional Appears: Non-toxic, Chronically Ill - Head Exam Head Exam: NORMOCEPHALIC - Eye Exam Eye Exam: absent: Scleral icterus - ENT Exam ENT Exam: Mucous Membranes Dry - Neck Exam Neck Exam: absent: Lymphadenopathy - Respiratory Exam Respiratory Exam: Decreased Breath Sounds, Rhonchi - Cardiovascular Exam Cardiovascular Exam: REGULAR RHYTHM, +S1, +S2 - GI/Abdominal Exam GI & Abdominal Exam: Distended, Soft - Rectal Exam Rectal Exam: Deferred - Exam Exam: NORMAL INSPECTION - Extremities Exam Extremities Exam: absent: Pedal Edema - Back Exam Back Exam: absent: CVA tenderness (L), paraspinal tenderness - Neurological Exam Neurological Exam: Alert, Awake, CN II-XII Intact Assessment and Plan (1) ESRD (end stage renal disease) Status: Acute (2) Pleural effusion Status: Acute (3) Fever Status: Acute (4) Hypertensive chronic kidney disease with stage 5 chronic kidney disease or end stage renal disease Status: Acute (5) Pneumonia Status: Acute (6) ESRD (end stage renal disease) on dialysis Status: Chronic - Assessment and Plan (Free Text) Assessment: cont RIPE, IV antibiotics Chest tube follow up Dr Allen
--- NOTE | 2018-07-06 18:24 | CP.PCM.PN ---
Subjective - Date & Time of Evaluation Date of Evaluation: 07/06/18 Time of Evaluation: 11:00 - Subjective Subjective: Patient seen and examined at bedside. VATS yesterday (07/05) showed right loculated pleural effusion. Right lower lobe biopsy and pleural biopsy collected. Patient was intubated in the PACU for respiratory distress Tolerating CPAP Patient is awake and responsive Afebrile. Physical Exam Cardio: RRR, no murmur Pulm: Decreased breath sounds Abd: Soft, non-distended A/P Pleural Effusion - CXR 07/05 shows decrease in right pleural effusion, commensurate re-expansion of right lung, and satisfactory position of endotracheal tube - Fungal culture 07/05 showed no fungal elements - Gram stain of lung and pleura 07/05 showed rare polymorphonuclear WBCs, no organisms - Pending results of lung bacterial tissue culture 07/05 - Continue antibiotics -Wean to extubate ESRD Objective - Vital Signs/Intake and Output Vital Signs (last 24 hours): Temp Pulse Resp BP Pulse Ox 98.4 F 93 H 40 H 122/59 L 100 07/06/18 16:00 07/06/18 17:00 07/06/18 17:00 07/06/18 16:56 07/06/18 17:00 Intake and Output: 07/06/18 07/06/18 06:59 18:59 Intake Total 1751.8 389 Output Total 70 0 Balance 1681.8 389 - Medications Medications: Current Medications Acetaminophen (Tylenol 325mg Tab) 650 mg PO Q6 PRN PRN Reason: for fever Last Admin: 07/05/18 00:23 Dose: 650 mg Epoetin Milton (Procrit) 10,000 unit IV TTS [facility] Ethambutol HCl (Myambutol) 800 mg PO TTS [facility]; Protocol Hydromorphone HCl (Dilaudid) 0.5 mg IVP Q4H PRN PRN Reason: Pain, moderate (4-7) Last Admin: 07/06/18 13:52 Dose: 0.5 mg Meropenem 500 mg/ Sodium (Chloride) 100 mls @ 100 mls/hr IVPB Q12H [facility]; Protocol Last Admin: 07/06/18 09:30 Dose: 100 mls/hr Propofol (Diprivan) 1,000 mg in 100 mls @ 1.309 mls/hr IV .Q24H [facility]; Protocol PRN Reason: TITRATE PER MD ORDER Last Titration: 07/06/18 07:40 Dose: 0 mcg/kg/min, 0 mls/hr Isoniazid (Niazid) 300 mg PO DAILY [facility]; Protocol Last Admin: 07/06/18 09:57 Dose: 300 mg Metoprolol Succinate (Toprol Xl) 25 mg PO DAILY [facility] Last Admin: 07/06/18 12:21 Dose: 25 mg Ondansetron HCl (Zofran Inj) 4 mg IVP Q4 PRN PRN Reason: Nausea/Vomiting Pantoprazole Sodium (Protonix Ec Tab) 40 mg PO DAILY [facility] Last Admin: 07/06/18 12:20 Dose: 40 mg Pyrazinamide (Pyrazinamide) 1,000 mg PO TTS [facility]; Protocol Pyridoxine HCl (Vitamin B6 50 Mg Tab) 50 mg PO DAILY [facility] Last Admin: 07/06/18 09:57 Dose: 50 mg Rifampin (Rifampin) 450 mg PO DAILY [facility]; Protocol Last Admin: 07/06/18 09:57 Dose: 450 mg Sevelamer Carbonate (Renvela) 800 mg PO TIDCC [facility] Last Admin: 07/06/18 17:42 Dose: 800 mg - Labs Labs: 07/06/18 06:13 07/06/18 06:14 PT 11.5 SECONDS (9.7-12.2) 07/05/18 06:40 INR 1.1 07/05/18 06:40 APTT 35 SECONDS (21-34) H 07/05/18 06:40 Assessment and Plan (1) Pleural effusion Status: Acute (2) ESRD (end stage renal disease) Status: Acute
--- NOTE | 2018-07-06 23:35 | CP.PCM.PN ---
Subjective - Date & Time of Evaluation Date of Evaluation: 07/06/18 Time of Evaluation: 07:00 - Subjective Subjective: THORACIC SURGERY PROGRESS NOTE FOR DR. MAO Patient seen and examined at bedside in the ICU. Pt was reintubated in PACU and tranferred to the ICU postop. She is tolerating CPAP trials this AM and was later extubated. Objective - Vital Signs/Intake and Output Vital Signs (last 24 hours): Temp Pulse Resp BP Pulse Ox 99 F 101 H 16 117/73 100 07/06/18 20:00 07/06/18 23:03 07/06/18 23:03 07/06/18 23:03 07/06/18 23:03 Intake and Output: 07/06/18 07/07/18 18:59 06:59 Intake Total 429 Output Total 90 0 Balance 339 0 - Medications Medications: Current Medications Acetaminophen (Tylenol 325mg Tab) 650 mg PO Q6 PRN PRN Reason: for fever Last Admin: 07/05/18 00:23 Dose: 650 mg Epoetin Milton (Procrit) 10,000 unit IV TTS [facility] Ethambutol HCl (Myambutol) 800 mg PO TTS [facility]; Protocol Hydromorphone HCl (Dilaudid) 0.5 mg IVP Q4H PRN PRN Reason: Pain, moderate (4-7) Last Admin: 07/06/18 23:12 Dose: 0.5 mg Meropenem 500 mg/ Sodium (Chloride) 100 mls @ 100 mls/hr IVPB Q12H [facility]; Protocol Last Admin: 07/06/18 21:20 Dose: 100 mls/hr Propofol (Diprivan) 1,000 mg in 100 mls @ 1.309 mls/hr IV .Q24H [facility]; Protocol PRN Reason: TITRATE PER MD ORDER Last Titration: 07/06/18 07:40 Dose: 0 mcg/kg/min, 0 mls/hr Isoniazid (Niazid) 300 mg PO DAILY [facility]; Protocol Last Admin: 07/06/18 09:57 Dose: 300 mg Metoprolol Succinate (Toprol Xl) 25 mg PO DAILY [facility] Last Admin: 07/06/18 12:21 Dose: 25 mg Ondansetron HCl (Zofran Inj) 4 mg IVP Q4 PRN PRN Reason: Nausea/Vomiting Pantoprazole Sodium (Protonix Ec Tab) 40 mg PO DAILY [facility] Last Admin: 07/06/18 12:20 Dose: 40 mg Pyrazinamide (Pyrazinamide) 1,000 mg PO TTS [facility]; Protocol Pyridoxine HCl (Vitamin B6 50 Mg Tab) 50 mg PO DAILY [facility] Last Admin: 07/06/18 09:57 Dose: 50 mg Rifampin (Rifampin) 450 mg PO DAILY [facility]; Protocol Last Admin: 07/06/18 09:57 Dose: 450 mg Sevelamer Carbonate (Renvela) 800 mg PO TIDCC [facility] Last Admin: 07/06/18 17:42 Dose: 800 mg - Labs Labs: 07/06/18 06:13 07/06/18 06:14 PT 11.5 SECONDS (9.7-12.2) 07/05/18 06:40 INR 1.1 07/05/18 06:40 APTT 35 SECONDS (21-34) H 07/05/18 06:40 - Constitutional Appears: Non-toxic, No Acute Distress - Head Exam Head Exam: ATRAUMATIC, NORMAL INSPECTION - ENT Exam Additional comments: ETT - Respiratory Exam Respiratory Exam: NORMAL BREATHING PATTERN. absent: Respiratory Distress Additional comments: Right chest tube in place with 200cc serosanguinous output since OR - GI/Abdominal Exam GI & Abdominal Exam: Soft. absent: Distended, Firm, Guarding, Rigid, Tenderness - Neurological Exam Neurological Exam: Alert, Awake, Oriented x3 - Psychiatric Exam Psychiatric exam: Normal Affect, Normal Mood - Skin Skin Exam: Normal Color, Warm Assessment and Plan - Assessment and Plan (Free Text) Assessment: 47yo F with loculated pleaural effusion s/p Right VATS with right lower lobe bret ng biopsy and pleural biopsy, Exparel block - Extubated today - Right chest tube in place with 200cc serosanguinous drainage since OR yesterday - Daily CXR - Continue chest tube to suction - FU path from RLL biopsy - Discussed plan with Dr. Vesta Recinos PGY-4
[2018-07-07] MEDS: HYDROmorphone 0.5 mg/0.5 ml ISec IVP PRN ×3 (05:21→19:39)
[2018-07-07 06:22] LABS: LYMPH # 0.9 K/uL (1.0-4.3); MEAN CORPUSCULAR HEMOGLOBIN 31.9 pg (27.0-31.0); MONO # 0.7 K/uL (0.0-0.8); NEUT # 4.4 K/uL (1.8-7.0); WHITE BLOOD COUNT 6.4 K/uL (4.8-10.8)
[2018-07-07 06:31] LABS: BASO % 0.3 % (0.0-2.0); EOS # 0.4 K/uL (0.0-0.7); EOS % 5.9 % (0.0-4.0); HEMOGLOBIN 8.8 g/dL (11.0-16.0); MEAN CELL VOLUME 101.4 fL (81.0-99.0); MEAN CORPUSCULAR HGB CONC 31.5 g/dL (33.0-37.0); MEAN PLATELET VOLUME 7.8 fL (7.2-11.7); MONO % 11.1 % (0.0-10.0); NEUT % 68.7 % (50.0-75.0); NRBC % 0.1 % (0.0-2.0); RBC 2.77 Mil/uL (3.80-5.20); RED CELL DISTRIBUTION WIDTH 17.9 % (11.5-14.5)
[2018-07-07 06:41] LABS: ALB/GLOB RATIO 0.8 (1.0-2.1); ALBUMIN 2.9 g/dL (3.5-5.0); CALCIUM 7.9 mg/dl (8.6-10.4)
--- NOTE | 2018-07-07 08:22 | CP.PCM.PN ---
Subjective - Date & Time of Evaluation Date of Evaluation: 07/07/18 Time of Evaluation: 08:18 - Subjective Subjective: SURGERY NOTE FOR DR. MAO 47F seen and examined at bedside. Patient denies chest pain, denies shortness of breath, patient extubated toleration room air. Objective - Vital Signs/Intake and Output Vital Signs (last 24 hours): Temp Pulse Resp BP Pulse Ox 99.2 F 91 H 29 H 103/60 99 07/07/18 04:00 07/07/18 04:00 07/07/18 04:00 07/07/18 04:00 07/07/18 04:00 Intake and Output: 07/07/18 07/07/18 06:59 18:59 Intake Total 480 Output Total 50 Balance 430 - Medications Medications: Current Medications Acetaminophen (Tylenol 325mg Tab) 650 mg PO Q6 PRN PRN Reason: for fever Last Admin: 07/05/18 00:23 Dose: 650 mg Epoetin Milton (Procrit) 10,000 unit IV TTS [facility] Ethambutol HCl (Myambutol) 800 mg PO TTS [facility]; Protocol Hydromorphone HCl (Dilaudid) 0.5 mg IVP Q4H PRN PRN Reason: Pain, moderate (4-7) Last Admin: 07/07/18 05:21 Dose: 0.5 mg Meropenem 500 mg/ Sodium (Chloride) 100 mls @ 100 mls/hr IVPB Q12H [facility]; Protocol Last Admin: 07/06/18 21:20 Dose: 100 mls/hr Propofol (Diprivan) 1,000 mg in 100 mls @ 1.309 mls/hr IV .Q24H [facility]; Protocol PRN Reason: TITRATE PER MD ORDER Last Titration: 07/06/18 07:40 Dose: 0 mcg/kg/min, 0 mls/hr Isoniazid (Niazid) 300 mg PO DAILY [facility]; Protocol Last Admin: 07/06/18 09:57 Dose: 300 mg Metoprolol Succinate (Toprol Xl) 25 mg PO DAILY [facility] Last Admin: 07/06/18 12:21 Dose: 25 mg Ondansetron HCl (Zofran Inj) 4 mg IVP Q4 PRN PRN Reason: Nausea/Vomiting Pantoprazole Sodium (Protonix Ec Tab) 40 mg PO DAILY [facility] Last Admin: 07/06/18 12:20 Dose: 40 mg Pyrazinamide (Pyrazinamide) 1,000 mg PO TTS [facility]; Protocol Pyridoxine HCl (Vitamin B6 50 Mg Tab) 50 mg PO DAILY [facility] Last Admin: 07/06/18 09:57 Dose: 50 mg Rifampin (Rifampin) 450 mg PO DAILY [facility]; Protocol Last Admin: 07/06/18 09:57 Dose: 450 mg Sevelamer Carbonate (Renvela) 800 mg PO TIDCC [facility] Last Admin: 07/06/18 17:42 Dose: 800 mg - Labs Labs: 07/07/18 06:09 07/07/18 06:10 PT 11.5 SECONDS (9.7-12.2) 07/05/18 06:40 INR 1.1 07/05/18 06:40 APTT 35 SECONDS (21-34) H 07/05/18 06:40 - Constitutional Appears: Non-toxic, No Acute Distress - Respiratory Exam Respiratory Exam: Clear to Ausculation Bilateral, NORMAL BREATHING PATTERN Additional comments: right chest tube in place 60cc/24hrs serosanguinous fluid Chest tube site CDI - Cardiovascular Exam Cardiovascular Exam: REGULAR RHYTHM, +S1, +S2 - GI/Abdominal Exam GI & Abdominal Exam: Soft. absent: Distended, Firm, Guarding, Rigid, Tenderness, Rebound - Neurological Exam Neurological Exam: Alert, Awake Assessment and Plan - Assessment and Plan (Free Text) Assessment: 47F s/p right VATs with right lower lobe biopsy and pleural biopsy POD#2 Plan: - Place chest tube to waterseal - monitor daily CXR - Further recs discuss with Dr. Vesta Toney, PGY3
--- NOTE | 2018-07-07 09:14 | CP.PCM.PN ---
Subjective - Date & Time of Evaluation Date of Evaluation: 07/07/18 Time of Evaluation: 09:12 - Subjective Subjective: s/p repeat VATS, lung bx extubated now, alert chest tube in place- right for HD today Objective - Vital Signs/Intake and Output Vital Signs (last 24 hours): Temp Pulse Resp BP Pulse Ox 99.2 F 91 H 29 H 103/60 99 07/07/18 04:00 07/07/18 04:00 07/07/18 04:00 07/07/18 04:00 07/07/18 04:00 Intake and Output: 07/07/18 07/07/18 06:59 18:59 Intake Total 480 Output Total 50 Balance 430 - Medications Medications: Current Medications Acetaminophen (Tylenol 325mg Tab) 650 mg PO Q6 PRN PRN Reason: for fever Last Admin: 07/05/18 00:23 Dose: 650 mg Epoetin Milton (Procrit) 10,000 unit IV TTS [facility] Ethambutol HCl (Myambutol) 800 mg PO TTS [facility]; Protocol Hydromorphone HCl (Dilaudid) 0.5 mg IVP Q4H PRN PRN Reason: Pain, moderate (4-7) Last Admin: 07/07/18 05:21 Dose: 0.5 mg Meropenem 500 mg/ Sodium (Chloride) 100 mls @ 100 mls/hr IVPB Q12H [facility]; Protocol Last Admin: 07/06/18 21:20 Dose: 100 mls/hr Propofol (Diprivan) 1,000 mg in 100 mls @ 1.309 mls/hr IV .Q24H [facility]; Protocol PRN Reason: TITRATE PER MD ORDER Last Titration: 07/06/18 07:40 Dose: 0 mcg/kg/min, 0 mls/hr Isoniazid (Niazid) 300 mg PO DAILY [facility]; Protocol Last Admin: 07/06/18 09:57 Dose: 300 mg Metoprolol Succinate (Toprol Xl) 25 mg PO DAILY [facility] Last Admin: 07/06/18 12:21 Dose: 25 mg Ondansetron HCl (Zofran Inj) 4 mg IVP Q4 PRN PRN Reason: Nausea/Vomiting Pantoprazole Sodium (Protonix Ec Tab) 40 mg PO DAILY [facility] Last Admin: 07/06/18 12:20 Dose: 40 mg Pyrazinamide (Pyrazinamide) 1,000 mg PO TTS [facility]; Protocol Pyridoxine HCl (Vitamin B6 50 Mg Tab) 50 mg PO DAILY [facility] Last Admin: 07/06/18 09:57 Dose: 50 mg Rifampin (Rifampin) 450 mg PO DAILY [facility]; Protocol Last Admin: 07/06/18 09:57 Dose: 450 mg Sevelamer Carbonate (Renvela) 800 mg PO TIDCC [facility] Last Admin: 07/07/18 08:20 Dose: 800 mg - Labs Labs: 07/07/18 06:09 07/07/18 06:10 PT 11.5 SECONDS (9.7-12.2) 07/05/18 06:40 INR 1.1 07/05/18 06:40 APTT 35 SECONDS (21-34) H 07/05/18 06:40 - Constitutional Appears: No Acute Distress, Chronically Ill - Head Exam Head Exam: ATRAUMATIC, NORMAL INSPECTION - Eye Exam Eye Exam: EOMI, Normal appearance - Neck Exam Neck Exam: Normal Inspection. absent: Tenderness - Respiratory Exam Respiratory Exam: Decreased Breath Sounds, NORMAL BREATHING PATTERN - Cardiovascular Exam Cardiovascular Exam: REGULAR RHYTHM, +S1 - GI/Abdominal Exam GI & Abdominal Exam: Soft. absent: Tenderness - Extremities Exam Extremities Exam: Normal Inspection. absent: Tenderness - Neurological Exam Neurological Exam: Awake, CN II-XII Intact - Skin Skin Exam: Dry, Warm Assessment and Plan (1) ESRD (end stage renal disease) Status: Acute (2) Fever Status: Acute (3) HTN (hypertension) Status: Chronic (4) IgA nephropathy Status: Acute (5) Pneumonia Status: Acute - Assessment and Plan (Free Text) Plan: await bx results for dialysis today same TB coverage as per ID
[2018-07-07] MEDS: Metoprolol Succinate 25 mg XL Tab PO SCH (10:00)
--- NOTE | 2018-07-07 10:49 | RAD ---
Date of service: 07/07/2018 HISTORY: chest tube; s/p vats COMPARISON: 07/06/2018 FINDINGS: LUNGS: Right inferolateral pleural based opacity compatible small right pleural effusion with contiguous right basal atelectasis. Concomitant minimal patchy infiltrate here not excluded. Overall appearance unchanged. Right chest tube tip superomedial right hemithorax-similar Interval endotracheal tube removal PLEURA: Small right inferolateral pleural effusion/pleural thickening the inferred subsegmental compressive atelectasis here and/or hypoventilatory atelectasis. Appearance is similar. Small left pleural effusion probably slightly less now than before No pneumothorax seen. CARDIOVASCULAR: No aortic atherosclerotic calcification present. Right large bore central catheter tip in right atrium-similar Cardiomegaly-similar No significant appearing pulmonary venous congestion. OSSEOUS STRUCTURES: Thoraco lumbar spondylosis. Bilateral glenohumeral arthrosis. VISUALIZED UPPER ABDOMEN: Interval NG tube removal. OTHER FINDINGS: None. IMPRESSION: Interval endotracheal tube and NG tube removals. Right chest tube large bore right central catheter appearances and positions are similar. The bibasilar right side greater than left pleural base opacities are similar in appearance with some slight improvement at the left lung base suggested. Small residual right pleural effusion and/or thickening with likely a subsegmental atelectatic changes here. No increasing pleural effusion or interval pneumothorax seen.
[2018-07-07] MEDS: Epoetin Alfa 10,000 unit/ml Dialysis IV SCH (13:08)
[2018-07-07] MEDS: Meropenem 500 MG in Sodium Chloride 0.9% 100 ML IVPB SCH ×2 (13:24→22:33)
[2018-07-07] MEDS: Pantoprazole 40 mg EC Tab PO SCH (13:28)
--- NOTE | 2018-07-07 17:31 | CP.PCM.PN ---
Subjective - Date & Time of Evaluation Date of Evaluation: 07/07/18 Time of Evaluation: 17:29 - Subjective Subjective: S Feels weak. Transfer to . No fever. Objective - Vital Signs/Intake and Output Vital Signs (last 24 hours): Temp Pulse Resp BP Pulse Ox 98.2 F 89 18 94/60 L 100 07/07/18 16:00 07/07/18 16:00 07/07/18 16:00 07/07/18 16:00 07/07/18 16:00 Intake and Output: 07/07/18 07/07/18 06:59 18:59 Intake Total 480 Output Total 50 Balance 430 - Medications Medications: Current Medications Acetaminophen (Tylenol 325mg Tab) 650 mg PO Q6 PRN PRN Reason: for fever Last Admin: 07/05/18 00:23 Dose: 650 mg Epoetin Milton (Procrit) 10,000 unit IV TTS [facility] Last Admin: 07/07/18 13:08 Dose: 10,000 unit Ethambutol HCl (Myambutol) 800 mg PO TTS [facility]; Protocol Last Admin: 07/07/18 14:55 Dose: Not Given Hydromorphone HCl (Dilaudid) 0.5 mg IVP Q4H PRN PRN Reason: Pain, moderate (4-7) Last Admin: 07/07/18 15:06 Dose: 0.5 mg Meropenem 500 mg/ Sodium (Chloride) 100 mls @ 100 mls/hr IVPB Q12H [facility]; Protocol Last Admin: 07/07/18 13:24 Dose: 100 mls/hr Propofol (Diprivan) 1,000 mg in 100 mls @ 1.309 mls/hr IV .Q24H [facility]; Protocol PRN Reason: TITRATE PER MD ORDER Last Titration: 07/06/18 07:40 Dose: 0 mcg/kg/min, 0 mls/hr Isoniazid (Niazid) 300 mg PO DAILY [facility]; Protocol Last Admin: 07/07/18 13:28 Dose: 300 mg Metoprolol Succinate (Toprol Xl) 25 mg PO DAILY [facility] Last Admin: 07/07/18 10:00 Dose: Not Given Ondansetron HCl (Zofran Inj) 4 mg IVP Q4 PRN PRN Reason: Nausea/Vomiting Pantoprazole Sodium (Protonix Ec Tab) 40 mg PO DAILY [facility] Last Admin: 07/07/18 13:28 Dose: 40 mg Pyrazinamide (Pyrazinamide) 1,000 mg PO TTS [facility]; Protocol Last Admin: 07/07/18 13:27 Dose: 1,000 mg Pyridoxine HCl (Vitamin B6 50 Mg Tab) 50 mg PO DAILY [facility] Last Admin: 07/07/18 13:28 Dose: 50 mg Rifampin (Rifampin) 450 mg PO DAILY [facility]; Protocol Last Admin: 07/07/18 13:27 Dose: 450 mg Sevelamer Carbonate (Renvela) 800 mg PO TIDCC [facility] Last Admin: 07/07/18 17:23 Dose: 800 mg - Labs Labs: 07/07/18 06:09 07/07/18 06:10 PT 11.5 SECONDS (9.7-12.2) 07/05/18 06:40 INR 1.1 07/05/18 06:40 APTT 35 SECONDS (21-34) H 07/05/18 06:40 - Constitutional Appears: Chronically Ill - Head Exam Head Exam: NORMAL INSPECTION - ENT Exam ENT Exam: Normal Exam - Neck Exam Neck Exam: Normal Inspection - Respiratory Exam Respiratory Exam: Decreased Breath Sounds - Cardiovascular Exam Cardiovascular Exam: REGULAR RHYTHM - Rectal Exam Rectal Exam: Deferred - Extremities Exam Extremities Exam: absent: Pedal Edema - Neurological Exam Neurological Exam: Awake Assessment and Plan (1) Pleural effusion Status: Acute (2) Tachycardia Status: Acute (3) ESRD (end stage renal disease) on dialysis Status: Chronic (4) HTN (hypertension) Status: Chronic (5) Fever Status: Acute - Assessment and Plan (Free Text) Assessment: A/P: Continue medications. s/p dialysis. Awaiting lung biopsy results
--- NOTE | 2018-07-07 17:56 | CP.PCM.PN ---
Subjective - Date & Time of Evaluation Date of Evaluation: 07/07/18 Time of Evaluation: 11:10 - Subjective Subjective: Patient seen and examined Seen during hemodialysis No shortness of breath Right chest tube in place Objective - Vital Signs/Intake and Output Vital Signs (last 24 hours): Temp Pulse Resp BP Pulse Ox 98.2 F 89 18 94/60 L 100 07/07/18 16:00 07/07/18 16:00 07/07/18 16:00 07/07/18 16:00 07/07/18 16:00 Intake and Output: 07/07/18 07/07/18 06:59 18:59 Intake Total 480 Output Total 50 Balance 430 - Medications Medications: Current Medications Acetaminophen (Tylenol 325mg Tab) 650 mg PO Q6 PRN PRN Reason: for fever Last Admin: 07/05/18 00:23 Dose: 650 mg Epoetin Milton (Procrit) 10,000 unit IV TTS [facility] Last Admin: 07/07/18 13:08 Dose: 10,000 unit Ethambutol HCl (Myambutol) 800 mg PO TTS [facility]; Protocol Last Admin: 07/07/18 14:55 Dose: Not Given Hydromorphone HCl (Dilaudid) 0.5 mg IVP Q4H PRN PRN Reason: Pain, moderate (4-7) Last Admin: 07/07/18 15:06 Dose: 0.5 mg Meropenem 500 mg/ Sodium (Chloride) 100 mls @ 100 mls/hr IVPB Q12H [facility] Last Admin: 07/07/18 13:24 Dose: 100 mls/hr Propofol (Diprivan) 1,000 mg in 100 mls @ 1.309 mls/hr IV .Q24H [facility]; Protocol PRN Reason: TITRATE PER MD ORDER Last Titration: 07/06/18 07:40 Dose: 0 mcg/kg/min, 0 mls/hr Isoniazid (Niazid) 300 mg PO DAILY [facility]; Protocol Last Admin: 07/07/18 13:28 Dose: 300 mg Metoprolol Succinate (Toprol Xl) 25 mg PO DAILY [facility] Last Admin: 07/07/18 10:00 Dose: Not Given Ondansetron HCl (Zofran Inj) 4 mg IVP Q4 PRN PRN Reason: Nausea/Vomiting Pantoprazole Sodium (Protonix Ec Tab) 40 mg PO DAILY [facility] Last Admin: 07/07/18 13:28 Dose: 40 mg Pyrazinamide (Pyrazinamide) 1,000 mg PO TTS [facility]; Protocol Last Admin: 07/07/18 13:27 Dose: 1,000 mg Pyridoxine HCl (Vitamin B6 50 Mg Tab) 50 mg PO DAILY [facility] Last Admin: 07/07/18 13:28 Dose: 50 mg Rifampin (Rifampin) 450 mg PO DAILY [facility]; Protocol Last Admin: 07/07/18 13:27 Dose: 450 mg Sevelamer Carbonate (Renvela) 800 mg PO TIDCC [facility] Last Admin: 07/07/18 17:23 Dose: 800 mg - Labs Labs: 07/07/18 06:09 07/07/18 06:10 PT 11.5 SECONDS (9.7-12.2) 07/05/18 06:40 INR 1.1 07/05/18 06:40 APTT 35 SECONDS (21-34) H 07/05/18 06:40 - Head Exam Head Exam: ATRAUMATIC, NORMOCEPHALIC - ENT Exam ENT Exam: Mucous Membranes Moist - Neck Exam Neck Exam: Normal Inspection - Respiratory Exam Respiratory Exam: Decreased Breath Sounds - Cardiovascular Exam Cardiovascular Exam: REGULAR RHYTHM - GI/Abdominal Exam GI & Abdominal Exam: Soft - Extremities Exam Extremities Exam: Normal Inspection Assessment and Plan (1) Pleural effusion Assessment & Plan: Status post VATS and lung biopsy Pending pathology report Continue antibiotics per ID Continue hemodialysis Status: Acute (2) ESRD (end stage renal disease) Status: Acute
--- NOTE | 2018-07-07 19:51 | CP.PCM.PN ---
Subjective - Date & Time of Evaluation Date of Evaluation: 07/07/18 Time of Evaluation: 06:00 - Subjective Subjective: afeb chest tube in place iv rx reordered await Bx Objective - Vital Signs/Intake and Output Vital Signs (last 24 hours): Temp Pulse Resp BP Pulse Ox 98.2 F 89 18 94/60 L 100 07/07/18 16:00 07/07/18 16:00 07/07/18 16:00 07/07/18 16:00 07/07/18 16:00 - Medications Medications: Current Medications Acetaminophen (Tylenol 325mg Tab) 650 mg PO Q6 PRN PRN Reason: for fever Last Admin: 07/05/18 00:23 Dose: 650 mg Epoetin Milton (Procrit) 10,000 unit IV TTS [facility] Last Admin: 07/07/18 13:08 Dose: 10,000 unit Ethambutol HCl (Myambutol) 800 mg PO TTS [facility]; Protocol Last Admin: 07/07/18 14:55 Dose: Not Given Hydromorphone HCl (Dilaudid) 0.5 mg IVP Q4H PRN PRN Reason: Pain, moderate (4-7) Last Admin: 07/07/18 19:39 Dose: 0.5 mg Meropenem 500 mg/ Sodium (Chloride) 100 mls @ 100 mls/hr IVPB Q12H [facility]; Protocol Last Admin: 07/07/18 13:24 Dose: 100 mls/hr Propofol (Diprivan) 1,000 mg in 100 mls @ 1.309 mls/hr IV .Q24H PRN; Protocol PRN Reason: TITRATE PER MD ORDER Last Titration: 07/06/18 07:40 Dose: 0 mcg/kg/min, 0 mls/hr Isoniazid (Niazid) 300 mg PO DAILY [facility]; Protocol Last Admin: 07/07/18 13:28 Dose: 300 mg Metoprolol Succinate (Toprol Xl) 25 mg PO DAILY [facility] Last Admin: 07/07/18 10:00 Dose: Not Given Ondansetron HCl (Zofran Inj) 4 mg IVP Q4 PRN PRN Reason: Nausea/Vomiting Pantoprazole Sodium (Protonix Ec Tab) 40 mg PO DAILY [facility] Last Admin: 07/07/18 13:28 Dose: 40 mg Pyrazinamide (Pyrazinamide) 1,000 mg PO TTS [facility]; Protocol Last Admin: 07/07/18 13:27 Dose: 1,000 mg Pyridoxine HCl (Vitamin B6 50 Mg Tab) 50 mg PO DAILY [facility] Last Admin: 07/07/18 13:28 Dose: 50 mg Rifampin (Rifampin) 450 mg PO DAILY [facility]; Protocol Last Admin: 07/07/18 13:27 Dose: 450 mg Sevelamer Carbonate (Renvela) 800 mg PO TIDCC [facility] Last Admin: 07/07/18 17:23 Dose: 800 mg - Labs Labs: 07/07/18 06:09 07/07/18 06:10 PT 11.5 SECONDS (9.7-12.2) 07/05/18 06:40 INR 1.1 07/05/18 06:40 APTT 35 SECONDS (21-34) H 07/05/18 06:40 - Constitutional Appears: Cachectic, Chronically Ill - Head Exam Head Exam: ATRAUMATIC, NORMAL INSPECTION, NORMOCEPHALIC - Eye Exam Eye Exam: EOMI, Normal appearance, PERRL Pupil Exam: NORMAL ACCOMODATION, PERRL - ENT Exam ENT Exam: Mucous Membranes Moist, Normal Exam - Neck Exam Neck Exam: Full ROM, Normal Inspection. absent: Lymphadenopathy - Respiratory Exam Respiratory Exam: Decreased Breath Sounds, Rales. absent: Respiratory Distress - Cardiovascular Exam Cardiovascular Exam: REGULAR RHYTHM, +S1, +S2. absent: Murmur - GI/Abdominal Exam GI & Abdominal Exam: Soft, Normal Bowel Sounds. absent: Tenderness - Rectal Exam Rectal Exam: Deferred - Exam Exam: NORMAL INSPECTION - Extremities Exam Extremities Exam: Full ROM, Normal Capillary Refill, Normal Inspection. absent: Joint Swelling, Pedal Edema - Back Exam Back Exam: NORMAL INSPECTION - Neurological Exam Neurological Exam: Alert, Awake, CN II-XII Intact, Normal Gait, Oriented x3 - Psychiatric Exam Psychiatric exam: Normal Affect, Normal Mood - Skin Skin Exam: Dry, Intact, Normal Color, Warm Assessment and Plan (1) ESRD (end stage renal disease) Status: Acute (2) Pleural effusion Status: Acute (3) Fever Status: Acute (4) Hypertensive chronic kidney disease with stage 5 chronic kidney disease or end stage renal disease Status: Acute (5) Pneumonia Status: Acute (6) ESRD (end stage renal disease) on dialysis Status: Chronic - Assessment and Plan (Free Text) Assessment: afeb chest tube in place iv rx reordered await Bx
[2018-07-08] MEDS: HYDROmorphone 0.5 mg/0.5 ml ISec IVP PRN ×3 (00:29→22:44)
[2018-07-08 06:26] LABS: BASO % 0.5 % (0.0-2.0); EOS # 0.1 K/uL (0.0-0.7); EOS % 3.8 % (0.0-4.0); HEMOGLOBIN 8.6 g/dL (11.0-16.0); LYMPH # 0.6 K/uL (1.0-4.3); LYMPH % 14.5 % (20.0-40.0); MEAN CELL VOLUME 100.9 fL (81.0-99.0); MEAN CORPUSCULAR HEMOGLOBIN 31.5 pg (27.0-31.0); MEAN CORPUSCULAR HGB CONC 31.2 g/dL (33.0-37.0); MEAN PLATELET VOLUME 7.7 fL (7.2-11.7); MONO # 0.3 K/uL (0.0-0.8); MONO % 8.6 % (0.0-10.0); NEUT # 2.9 K/uL (1.8-7.0); NEUT % 72.6 % (50.0-75.0); RBC 2.74 Mil/uL (3.80-5.20); RED CELL DISTRIBUTION WIDTH 18.3 % (11.5-14.5); WHITE BLOOD COUNT 3.9 K/uL (4.8-10.8)
[2018-07-08 06:45] LABS: ALB/GLOB RATIO 0.7 (1.0-2.1); ALBUMIN 2.4 g/dL (3.5-5.0); CALCIUM 8.2 mg/dl (8.6-10.4)
--- NOTE | 2018-07-08 08:25 | CP.PCM.PN ---
Subjective - Date & Time of Evaluation Date of Evaluation: 07/08/18 Time of Evaluation: 08:22 - Subjective Subjective: Pt no complain; R chest tube in place No unusual chest pain, no SOB, (+) Fair appetite No n/v, no diarrhea Objective - Vital Signs/Intake and Output Vital Signs (last 24 hours): Temp Pulse Resp BP Pulse Ox 97.8 F 92 H 20 110/65 100 07/08/18 07:00 07/08/18 07:00 07/08/18 07:00 07/08/18 07:00 07/08/18 07:00 Intake and Output: 07/08/18 07/08/18 06:59 18:59 Output Total 0 Balance 0 - Medications Medications: Current Medications Acetaminophen (Tylenol 325mg Tab) 650 mg PO Q6 PRN PRN Reason: for fever Last Admin: 07/07/18 23:53 Dose: 650 mg Epoetin Milton (Procrit) 10,000 unit IV TTS [facility] Last Admin: 07/07/18 13:08 Dose: 10,000 unit Ethambutol HCl (Myambutol) 800 mg PO TTS [facility]; Protocol Last Admin: 07/07/18 14:55 Dose: Not Given Hydromorphone HCl (Dilaudid) 0.5 mg IVP Q4H PRN PRN Reason: Pain, moderate (4-7) Last Admin: 07/08/18 00:29 Dose: 0.5 mg Meropenem 500 mg/ Sodium (Chloride) 100 mls @ 100 mls/hr IVPB Q12H [facility]; Protocol Last Admin: 07/07/18 22:33 Dose: 100 mls/hr Propofol (Diprivan) 1,000 mg in 100 mls @ 1.309 mls/hr IV .Q24H PRN; Protocol PRN Reason: TITRATE PER MD ORDER Last Titration: 07/06/18 07:40 Dose: 0 mcg/kg/min, 0 mls/hr Isoniazid (Niazid) 300 mg PO DAILY [facility]; Protocol Last Admin: 07/07/18 13:28 Dose: 300 mg Metoprolol Succinate (Toprol Xl) 25 mg PO DAILY [facility] Last Admin: 07/07/18 10:00 Dose: Not Given Ondansetron HCl (Zofran Inj) 4 mg IVP Q4 PRN PRN Reason: Nausea/Vomiting Pantoprazole Sodium (Protonix Ec Tab) 40 mg PO DAILY [facility] Last Admin: 07/07/18 13:28 Dose: 40 mg Pyrazinamide (Pyrazinamide) 1,000 mg PO TTS [facility]; Protocol Last Admin: 07/07/18 13:27 Dose: 1,000 mg Pyridoxine HCl (Vitamin B6 50 Mg Tab) 50 mg PO DAILY [facility] Last Admin: 07/07/18 13:28 Dose: 50 mg Rifampin (Rifampin) 450 mg PO DAILY [facility]; Protocol Last Admin: 07/07/18 13:27 Dose: 450 mg Sevelamer Carbonate (Renvela) 800 mg PO TIDCC [facility] Last Admin: 07/08/18 08:13 Dose: 800 mg - Labs Labs: 07/08/18 06:13 07/08/18 06:13 PT 11.5 SECONDS (9.7-12.2) 07/05/18 06:40 INR 1.1 07/05/18 06:40 APTT 35 SECONDS (21-34) H 07/05/18 06:40 - Constitutional Appears: No Acute Distress - Eye Exam Eye Exam: Normal appearance - ENT Exam ENT Exam: Mucous Membranes Moist - Neck Exam Neck Exam: Full ROM. absent: Lymphadenopathy, Normal Inspection - Respiratory Exam Respiratory Exam: Decreased Breath Sounds. absent: Rales, Rhonchi, Wheezes - Cardiovascular Exam Cardiovascular Exam: REGULAR RHYTHM, +S1, +S2. absent: Gallop, JVD, Murmur - GI/Abdominal Exam GI & Abdominal Exam: Soft. absent: Guarding, Tenderness - Extremities Exam Extremities Exam: Full ROM, Normal Capillary Refill. absent: Calf Tenderness, Joint Swelling, Pedal Edema Assessment and Plan - Assessment and Plan (Free Text) Assessment: Recurrent large Pleural effusion s/p CT HTN, ESRD Cont supportive care/ awaiting pathology report
[2018-07-08] MEDS: Meropenem 500 MG in Sodium Chloride 0.9% 100 ML IVPB SCH ×2 (09:19→21:35)
[2018-07-08] MEDS: Metoprolol Succinate 25 mg XL Tab PO SCH (09:19)
[2018-07-08] MEDS: Pantoprazole 40 mg EC Tab PO SCH (09:20)
--- NOTE | 2018-07-08 10:44 | RAD ---
Date of service: 07/08/2018 HISTORY: chest tube; s/p VATS COMPARISON: 07/07/2018. FINDINGS: Right-sided dialysis catheter terminates in the right atrium. LUNGS: The lungs are well inflated. There is mild pulmonary venous congestion. There is airspace disease in the right lower lobe. PLEURA: Right-sided chest tube remains in stable position terminating in the medial upper lobe pleural cavity. There are small pleural effusions. CARDIOVASCULAR: Mild cardiomegaly. No aortic atherosclerotic calcifications present. OSSEOUS STRUCTURES: Within normal limits for the patient's age. VISUALIZED UPPER ABDOMEN: Normal. OTHER FINDINGS: None. IMPRESSION: Right chest tube remains in stable position. Small pleural effusions. Right lower lobe airspace disease may represent compressive atelectasis however superimposed pneumonia cannot be excluded. Follow-up is advised.
--- NOTE | 2018-07-08 11:09 | CP.PCM.PN ---
Subjective - Date & Time of Evaluation Date of Evaluation: 07/08/18 Time of Evaluation: 09:45 - Subjective Subjective: Patient seen and examined at bedside. Denies dyspnea. Right chest tube in place. Patient was febrile overnight (102.8). Currently afebrile. Physical Exam Gen: AAOx3 Cardio: RRR, no murmur Pulm: Decreased breath sounds Abd: Soft, non-distended A/P Pleural Effusion - Status post VATS and lung biopsy - Pending pathology report - Continue antibiotics per ID? - Continue hemodialysis - Consider removal of tube - Repeat CXR Objective - Vital Signs/Intake and Output Vital Signs (last 24 hours): Temp Pulse Resp BP Pulse Ox 97.8 F 92 H 20 110/65 100 07/08/18 07:00 07/08/18 07:00 07/08/18 07:00 07/08/18 07:00 07/08/18 07:00 Intake and Output: 07/08/18 07/08/18 06:59 18:59 Output Total 0 Balance 0 - Medications Medications: Current Medications Acetaminophen (Tylenol 325mg Tab) 650 mg PO Q6 PRN PRN Reason: for fever Last Admin: 07/07/18 23:53 Dose: 650 mg Epoetin Milton (Procrit) 10,000 unit IV TTS [facility] Last Admin: 07/07/18 13:08 Dose: 10,000 unit Ethambutol HCl (Myambutol) 800 mg PO TTS [facility]; Protocol Last Admin: 07/07/18 14:55 Dose: Not Given Hydromorphone HCl (Dilaudid) 0.5 mg IVP Q4H PRN PRN Reason: Pain, moderate (4-7) Last Admin: 07/08/18 00:29 Dose: 0.5 mg Meropenem 500 mg/ Sodium (Chloride) 100 mls @ 100 mls/hr IVPB Q12H [facility]; Protocol Last Admin: 07/08/18 09:19 Dose: 100 mls/hr Propofol (Diprivan) 1,000 mg in 100 mls @ 1.309 mls/hr IV .Q24H [facility]; Protocol PRN Reason: TITRATE PER MD ORDER Last Titration: 07/06/18 07:40 Dose: 0 mcg/kg/min, 0 mls/hr Isoniazid (Niazid) 300 mg PO DAILY [facility]; Protocol Last Admin: 07/07/18 13:28 Dose: 300 mg Metoprolol Succinate (Toprol Xl) 25 mg PO DAILY [facility] Last Admin: 07/08/18 09:19 Dose: 25 mg Ondansetron HCl (Zofran Inj) 4 mg IVP Q4 PRN PRN Reason: Nausea/Vomiting Pantoprazole Sodium (Protonix Ec Tab) 40 mg PO DAILY [facility] Last Admin: 07/08/18 09:20 Dose: 40 mg Pyrazinamide (Pyrazinamide) 1,000 mg PO TTS [facility]; Protocol Last Admin: 07/07/18 13:27 Dose: 1,000 mg Pyridoxine HCl (Vitamin B6 50 Mg Tab) 50 mg PO DAILY [facility] Last Admin: 07/08/18 09:20 Dose: 50 mg Rifampin (Rifampin) 450 mg PO DAILY [facility]; Protocol Last Admin: 07/08/18 09:20 Dose: 450 mg Sevelamer Carbonate (Renvela) 800 mg PO TIDCC [facility] Last Admin: 07/08/18 08:13 Dose: 800 mg - Labs Labs: 07/08/18 06:13 07/08/18 06:13 PT 11.5 SECONDS (9.7-12.2) 07/05/18 06:40 INR 1.1 07/05/18 06:40 APTT 35 SECONDS (21-34) H 07/05/18 06:40 Assessment and Plan (1) Pleural effusion Status: Acute (2) ESRD (end stage renal disease) Status: Acute
--- NOTE | 2018-07-08 13:43 | CP.PCM.PN ---
Subjective - Date & Time of Evaluation Date of Evaluation: 07/08/18 Time of Evaluation: 13:41 - Subjective Subjective: right chest tube still in place feels better stable dialysis 07/07 fevers down Objective - Vital Signs/Intake and Output Vital Signs (last 24 hours): Temp Pulse Resp BP Pulse Ox 97.8 F 92 H 20 110/65 100 07/08/18 07:00 07/08/18 07:00 07/08/18 07:00 07/08/18 07:00 07/08/18 07:00 Intake and Output: 07/08/18 07/08/18 06:59 18:59 Output Total 0 Balance 0 - Medications Medications: Current Medications Acetaminophen (Tylenol 325mg Tab) 650 mg PO Q6 PRN PRN Reason: for fever Last Admin: 07/07/18 23:53 Dose: 650 mg Epoetin [place] (Procrit) 10,000 unit IV TTS [facility] Last Admin: 07/07/18 13:08 Dose: 10,000 unit Ethambutol HCl (Myambutol) 800 mg PO TTS [facility]; Protocol Last Admin: 07/07/18 14:55 Dose: Not Given Hydromorphone HCl (Dilaudid) 0.5 mg IVP Q4H PRN PRN Reason: Pain, moderate (4-7) Last Admin: 07/08/18 11:42 Dose: 0.5 mg Meropenem 500 mg/ Sodium (Chloride) 100 mls @ 100 mls/hr IVPB Q12H [facility]; Protocol Last Admin: 07/08/18 09:19 Dose: 100 mls/hr Propofol (Diprivan) 1,000 mg in 100 mls @ 1.309 mls/hr IV .Q24H [facility]; Protocol PRN Reason: TITRATE PER MD ORDER Last Titration: 07/06/18 07:40 Dose: 0 mcg/kg/min, 0 mls/hr Isoniazid (Niazid) 300 mg PO DAILY [facility]; Protocol Last Admin: 07/08/18 11:42 Dose: 300 mg Metoprolol Succinate (Toprol Xl) 25 mg PO DAILY [facility] Last Admin: 07/08/18 09:19 Dose: 25 mg Ondansetron HCl (Zofran Inj) 4 mg IVP Q4 PRN PRN Reason: Nausea/Vomiting Pantoprazole Sodium (Protonix Ec Tab) 40 mg PO DAILY [facility] Last Admin: 07/08/18 09:20 Dose: 40 mg Pyrazinamide (Pyrazinamide) 1,000 mg PO TTS [facility]; Protocol Last Admin: 07/07/18 13:27 Dose: 1,000 mg Pyridoxine HCl (Vitamin B6 50 Mg Tab) 50 mg PO DAILY [facility] Last Admin: 07/08/18 09:20 Dose: 50 mg Rifampin (Rifampin) 450 mg PO DAILY [facility]; Protocol Last Admin: 07/08/18 09:20 Dose: 450 mg Sevelamer Carbonate (Renvela) 800 mg PO TIDCC [facility] Last Admin: 07/08/18 12:39 Dose: 800 mg - Labs Labs: 07/08/18 06:13 07/08/18 06:13 PT 11.5 SECONDS (9.7-12.2) 07/05/18 06:40 INR 1.1 07/05/18 06:40 APTT 35 SECONDS (21-34) H 07/05/18 06:40 - Constitutional Appears: No Acute Distress, Chronically Ill - Head Exam Head Exam: ATRAUMATIC, NORMAL INSPECTION - Eye Exam Eye Exam: EOMI, Normal appearance - Neck Exam Neck Exam: Normal Inspection. absent: Tenderness - Respiratory Exam Respiratory Exam: Decreased Breath Sounds, NORMAL BREATHING PATTERN - Cardiovascular Exam Cardiovascular Exam: REGULAR RHYTHM, +S1 - GI/Abdominal Exam GI & Abdominal Exam: Soft. absent: Tenderness - Extremities Exam Extremities Exam: Normal Inspection. absent: Tenderness - Neurological Exam Neurological Exam: Awake, CN II-XII Intact - Skin Skin Exam: Dry, Warm Assessment and Plan (1) ESRD (end stage renal disease) Status: Acute (2) Fever Status: Acute (3) HTN (hypertension) Status: Chronic (4) IgA nephropathy Status: Acute (5) Pneumonia Status: Acute - Assessment and Plan (Free Text) Plan: dialysis TTS antimicrobials as per ID EPO started
--- NOTE | 2018-07-08 19:12 | CP.PCM.PN ---
Subjective - Date & Time of Evaluation Date of Evaluation: 07/08/18 Time of Evaluation: 09:00 - Subjective Subjective: fever again not much drainage biopsy pending Objective - Vital Signs/Intake and Output Vital Signs (last 24 hours): Temp Pulse Resp BP Pulse Ox 98.7 F 82 18 107/69 100 07/08/18 15:00 07/08/18 15:00 07/08/18 15:00 07/08/18 15:00 07/08/18 15:00 Intake and Output: 07/08/18 07/09/18 18:59 06:59 Intake Total 300 Output Total 0 Balance 300 - Medications Medications: Current Medications Acetaminophen (Tylenol 325mg Tab) 650 mg PO Q6 PRN PRN Reason: for fever Last Admin: 07/07/18 23:53 Dose: 650 mg Epoetin Milton (Procrit) 10,000 unit IV TTS [facility] Last Admin: 07/07/18 13:08 Dose: 10,000 unit Ethambutol HCl (Myambutol) 800 mg PO TTS [facility]; Protocol Last Admin: 07/07/18 14:55 Dose: Not Given Hydromorphone HCl (Dilaudid) 0.5 mg IVP Q4H PRN PRN Reason: Pain, severe (8-10) Meropenem 500 mg/ Sodium (Chloride) 100 mls @ 100 mls/hr IVPB Q12H [facility]; Prot ocol Last Admin: 07/08/18 09:19 Dose: 100 mls/hr Propofol (Diprivan) 1,000 mg in 100 mls @ 1.309 mls/hr IV .Q24H [facility]; Protocol PRN Reason: TITRATE PER MD ORDER Last Titration: 07/06/18 07:40 Dose: 0 mcg/kg/min, 0 mls/hr Isoniazid (Niazid) 300 mg PO DAILY [facility]; Protocol Last Admin: 07/08/18 11:42 Dose: 300 mg Metoprolol Succinate (Toprol Xl) 25 mg PO DAILY [facility] Last Admin: 07/08/18 09:19 Dose: 25 mg Ondansetron HCl (Zofran Inj) 4 mg IVP Q4 PRN PRN Reason: Nausea/Vomiting Pantoprazole Sodium (Protonix Ec Tab) 40 mg PO DAILY [facility] Last Admin: 07/08/18 09:20 Dose: 40 mg Pyrazinamide (Pyrazinamide) 1,000 mg PO TTS [facility]; Protocol Last Admin: 07/07/18 13:27 Dose: 1,000 mg Pyridoxine HCl (Vitamin B6 50 Mg Tab) 50 mg PO DAILY [facility] Last Admin: 07/08/18 09:20 Dose: 50 mg Rifampin (Rifampin) 450 mg PO DAILY [facility]; Protocol Last Admin: 07/08/18 09:20 Dose: 450 mg Sevelamer Carbonate (Renvela) 800 mg PO TIDCC [facility] Last Admin: 07/08/18 17:06 Dose: 800 mg Tramadol HCl (Ultram) 25 mg PO TID PRN PRN Reason: Pain, moderate (4-7) - Labs Labs: 07/08/18 06:13 07/08/18 06:13 PT 11.5 SECONDS (9.7-12.2) 07/05/18 06:40 INR 1.1 07/05/18 06:40 APTT 35 SECONDS (21-34) H 07/05/18 06:40 - Constitutional Appears: No Acute Distress, Cachectic, Chronically Ill - Head Exam Head Exam: ATRAUMATIC, NORMAL INSPECTION, NORMOCEPHALIC - Eye Exam Eye Exam: EOMI, Normal appearance, PERRL Pupil Exam: NORMAL ACCOMODATION, PERRL - ENT Exam ENT Exam: Mucous Membranes Moist, Normal Exam - Neck Exam Neck Exam: Full ROM, Normal Inspection. absent: Lymphadenopathy - Respiratory Exam Respiratory Exam: Clear to Ausculation Bilateral, NORMAL BREATHING PATTERN - Cardiovascular Exam Cardiovascular Exam: REGULAR RHYTHM, +S1, +S2. absent: Murmur - GI/Abdominal Exam GI & Abdominal Exam: Soft, Normal Bowel Sounds. absent: Tenderness - Rectal Exam Rectal Exam: Deferred - Exam Exam: NORMAL INSPECTION - Extremities Exam Extremities Exam: Full ROM, Normal Capillary Refill, Normal Inspection. absent: Joint Swelling, Pedal Edema - Back Exam Back Exam: NORMAL INSPECTION - Neurological Exam Neurological Exam: Alert, Awake, CN II-XII Intact, Normal Gait, Oriented x3 - Psychiatric Exam Psychiatric exam: Normal Affect, Normal Mood - Skin Skin Exam: Dry, Intact, Normal Color, Warm Assessment and Plan (1) ESRD (end stage renal disease) Status: Acute (2) Pleural effusion Status: Acute (3) Fever Status: Acute (4) Hypertensive chronic kidney disease with stage 5 chronic kidney disease or end stage renal disease Status: Acute (5) Pneumonia Status: Acute (6) ESRD (end stage renal disease) on dialysis Status: Chronic - Assessment and Plan (Free Text) Assessment: r/o sarcoid, r/o TB, r/o lymphoma, r/o carcinoma other ? cont IV rx for HCAP await Bx
[2018-07-09] MEDS: HYDROmorphone 0.5 mg/0.5 ml ISec IVP PRN (05:20)
[2018-07-09 08:04] LABS: ALB/GLOB RATIO 0.7 (1.0-2.1); ALBUMIN 2.5 g/dL (3.5-5.0); CALCIUM 8.4 mg/dl (8.6-10.4)
--- NOTE | 2018-07-09 08:09 | CP.PCM.PN ---
Subjective - Date & Time of Evaluation Date of Evaluation: 07/09/18 Time of Evaluation: 08:08 - Subjective Subjective: SURGERY NOTE FOR DR. LEMONS Pt resting comfortably in bed. Denies CP, SOB, F & C, other complaints. CT without airleak, currently on waterseal. Objective - Vital Signs/Intake and Output Vital Signs (last 24 hours): Temp Pulse Resp BP Pulse Ox 98 F 81 20 105/65 100 07/09/18 07:00 07/09/18 07:00 07/09/18 07:00 07/09/18 07:00 07/09/18 07:00 Intake and Output: 07/09/18 07/09/18 06:59 18:59 Intake Total 400 Output Total 20 Balance 380 - Medications Medications: Current Medications Acetaminophen (Tylenol 325mg Tab) 650 mg PO Q6 PRN PRN Reason: for fever Last Admin: 07/07/18 23:53 Dose: 650 mg Epoetin Milton (Procrit) 10,000 unit IV TTS [facility] Last Admin: 07/07/18 13:08 Dose: 10,000 unit Ethambutol HCl (Myambutol) 800 mg PO TTS [facility]; Protocol Last Admin: 07/07/18 14:55 Dose: Not Given Hydromorphone HCl (Dilaudid) 0.5 mg IVP Q4H PRN PRN Reason: Pain, severe (8-10) Last Admin: 07/09/18 05:20 Dose: 0.5 mg Meropenem 500 mg/ Sodium (Chloride) 100 mls @ 100 mls/hr IVPB Q12H [facility]; Protocol Last Admin: 07/08/18 21:35 Dose: 100 mls/hr Propofol (Diprivan) 1,000 mg in 100 mls @ 1.309 mls/hr IV .Q24H [facility]; Protocol PRN Reason: TITRATE PER MD ORDER Last Titration: 07/06/18 07:40 Dose: 0 mcg/kg/min, 0 mls/hr Isoniazid (Niazid) 300 mg PO DAILY [facility]; Protocol Last Admin: 07/08/18 11:42 Dose: 300 mg Metoprolol Succinate (Toprol Xl) 25 mg PO DAILY [facility] Last Admin: 07/08/18 09:19 Dose: 25 mg Ondansetron HCl (Zofran Inj) 4 mg IVP Q4 PRN PRN Reason: Nausea/Vomiting Pantoprazole Sodium (Protonix Ec Tab) 40 mg PO DAILY [facility] Last Admin: 07/08/18 09:20 Dose: 40 mg Pyrazinamide (Pyrazinamide) 1,000 mg PO TTS [facility]; Protocol Last Admin: 07/07/18 13:27 Dose: 1,000 mg Pyridoxine HCl (Vitamin B6 50 Mg Tab) 50 mg PO DAILY [facility] Last Admin: 07/08/18 09:20 Dose: 50 mg Rifampin (Rifampin) 450 mg PO DAILY [facility]; Protocol Last Admin: 07/08/18 09:20 Dose: 450 mg Sevelamer Carbonate (Renvela) 800 mg PO TIDCC [facility] Last Admin: 07/08/18 17:06 Dose: 800 mg Tramadol HCl (Ultram) 25 mg PO TID PRN PRN Reason: Pain, moderate (4-7) - Labs Labs: 07/08/18 06:13 07/09/18 07:27 PT 11.5 SECONDS (9.7-12.2) 07/05/18 06:40 INR 1.1 07/05/18 06:40 APTT 35 SECONDS (21-34) H 07/05/18 06:40 - Constitutional Appears: Non-toxic, No Acute Distress - Head Exam Head Exam: ATRAUMATIC, NORMAL INSPECTION, NORMOCEPHALIC - Eye Exam Eye Exam: EOMI, Normal appearance - ENT Exam ENT Exam: Normal Exam - Neck Exam Neck Exam: Full ROM - Respiratory Exam Respiratory Exam: NORMAL BREATHING PATTERN. absent: Accessory Muscle Use, Chest Wall Tenderness, Respiratory Distress Additional comments: Right CT insertion site with dressing in place-clean/dry/intact. CT without airleaks, 30cc serous output/12hrs - Cardiovascular Exam Cardiovascular Exam: REGULAR RHYTHM - GI/Abdominal Exam GI & Abdominal Exam: Soft - Neurological Exam Neurological Exam: Alert, Awake, Oriented x3 - Psychiatric Exam Psychiatric exam: Normal Affect, Normal Mood - Skin Skin Exam: Dry, Intact, Normal Color, Warm Assessment and Plan - Assessment and Plan (Free Text) Assessment: 47F s/p right VATs with right lower lobe biopsy and pleural biopsy POD#4 Plan: CT to waterseal, plan to remove later today Daily CXR Pain control Renal diet Further care as per primary team NICOLE Lemons
--- NOTE | 2018-07-09 09:40 | RAD ---
Date of service: 07/09/2018 HISTORY: Chest tube; s/p vats COMPARISON: Comparison chest 07/08/2018 FINDINGS: No change right IJ large-bore central venous access catheter LUNGS: In situ right-sided chest tube. Mild bibasilar atelectasis and/or infiltrates with small bilateral effusions right greater than PLEURA: As above. No pneumothorax apparent. CARDIOVASCULAR: Questionable minimal aortic atherosclerotic calcification present. Cardiomegaly. . OSSEOUS STRUCTURES: No significant abnormalities. VISUALIZED UPPER ABDOMEN: Normal. OTHER FINDINGS: None. IMPRESSION: In situ right-sided chest tube. Mild bibasilar atelectasis and/or infiltrates with small bilateral effusions right greater than
[2018-07-09] MEDS: Metoprolol Succinate 25 mg XL Tab PO SCH (10:00)
[2018-07-09] MEDS: Pantoprazole 40 mg EC Tab PO SCH (10:00)
[2018-07-09] MEDS: Meropenem 500 MG in Sodium Chloride 0.9% 100 ML IVPB SCH ×2 (10:00→21:34)
--- NOTE | 2018-07-09 10:13 | CP.PCM.PN ---
Subjective - Date & Time of Evaluation Date of Evaluation: 07/09/18 Time of Evaluation: 10:11 - Subjective Subjective: seen at dialysis to UF 2000ml tolerating dialysis well afebrile course to have chest tube removed later today Objective - Vital Signs/Intake and Output Vital Signs (last 24 hours): Temp Pulse Resp BP Pulse Ox 98 F 81 20 105/65 100 07/09/18 07:00 07/09/18 07:00 07/09/18 07:00 07/09/18 07:00 07/09/18 07:00 Intake and Output: 07/09/18 07/09/18 06:59 18:59 Intake Total 400 Output Total 20 Balance 380 - Medications Medications: Current Medications Acetaminophen (Tylenol 325mg Tab) 650 mg PO Q6 PRN PRN Reason: for fever Last Admin: 07/07/18 23:53 Dose: 650 mg Epoetin Milton (Procrit) 10,000 unit IV TTS [facility] Last Admin: 07/07/18 13:08 Dose: 10,000 unit Ethambutol HCl (Myambutol) 800 mg PO TTS [facility]; Protocol Last Admin: 07/07/18 14:55 Dose: Not Given Hydromorphone HCl (Dilaudid) 0.5 mg IVP Q4H PRN PRN Reason: Pain, severe (8-10) Last Admin: 07/09/18 05:20 Dose: 0.5 mg Meropenem 500 mg/ Sodium (Chloride) 100 mls @ 100 mls/hr IVPB Q12H [facility]; Protocol Last Admin: 07/08/18 21:35 Dose: 100 mls/hr Propofol (Diprivan) 1,000 mg in 100 mls @ 1.309 mls/hr IV .Q24H PRN; Protocol PRN Reason: TITRATE PER MD ORDER Last Titration: 07/06/18 07:40 Dose: 0 mcg/kg/min, 0 mls/hr Isoniazid (Niazid) 300 mg PO DAILY [facility]; Protocol Last Admin: 07/08/18 11:42 Dose: 300 mg Metoprolol Succinate (Toprol Xl) 25 mg PO DAILY [facility] Last Admin: 07/08/18 09:19 Dose: 25 mg Ondansetron HCl (Zofran Inj) 4 mg IVP Q4 PRN PRN Reason: Nausea/Vomiting Pantoprazole Sodium (Protonix Ec Tab) 40 mg PO DAILY [facility] Last Admin: 07/08/18 09:20 Dose: 40 mg Pyrazinamide (Pyrazinamide) 1,000 mg PO TTS [facility]; Protocol Last Admin: 07/07/18 13:27 Dose: 1,000 mg Pyridoxine HCl (Vitamin B6 50 Mg Tab) 50 mg PO DAILY [facility] Last Admin: 07/08/18 09:20 Dose: 50 mg Rifampin (Rifampin) 450 mg PO DAILY [facility]; Protocol Last Admin: 07/08/18 09:20 Dose: 450 mg Sevelamer Carbonate (Renvela) 800 mg PO TIDCC [facility] Last Admin: 07/09/18 08:43 Dose: 800 mg Tramadol HCl (Ultram) 25 mg PO TID PRN PRN Reason: Pain, moderate (4-7) - Labs Labs: 07/08/18 06:13 07/09/18 07:27 PT 11.5 SECONDS (9.7-12.2) 07/05/18 06:40 INR 1.1 07/05/18 06:40 APTT 35 SECONDS (21-34) H 07/05/18 06:40 - Constitutional Appears: No Acute Distress, Chronically Ill - Head Exam Head Exam: ATRAUMATIC, NORMAL INSPECTION - Eye Exam Eye Exam: EOMI, Normal appearance - Neck Exam Neck Exam: Normal Inspection. absent: Tenderness - Respiratory Exam Respiratory Exam: Decreased Breath Sounds, NORMAL BREATHING PATTERN - Cardiovascular Exam Cardiovascular Exam: REGULAR RHYTHM, +S1 - GI/Abdominal Exam GI & Abdominal Exam: Soft. absent: Tenderness - Extremities Exam Extremities Exam: Normal Inspection. absent: Tenderness - Neurological Exam Neurological Exam: Awake, CN II-XII Intact - Skin Skin Exam: Dry, Warm Assessment and Plan (1) ESRD (end stage renal disease) Status: Acute (2) Fever Status: Acute (3) HTN (hypertension) Status: Chronic (4) IgA nephropathy Status: Acute (5) Pneumonia Status: Acute - Assessment and Plan (Free Text) Plan: same dialysis TTS Await chest tube removal
[2018-07-09 10:23] LABS: BASO % 1.1 % (0.0-2.0); EOS # 0.1 K/uL (0.0-0.7); EOS % 4.1 % (0.0-4.0); LYMPH # 0.3 K/uL (1.0-4.3); LYMPH % 9.3 % (20.0-40.0); MEAN CELL VOLUME 99.6 fL (81.0-99.0); MEAN CORPUSCULAR HEMOGLOBIN 31.7 pg (27.0-31.0); MEAN CORPUSCULAR HGB CONC 31.9 g/dL (33.0-37.0); MEAN PLATELET VOLUME 8.3 fL (7.2-11.7); MONO # 0.2 K/uL (0.0-0.8); MONO % 8.1 % (0.0-10.0); NEUT # 2.3 K/uL (1.8-7.0); NEUT % 77.4 % (50.0-75.0); NRBC % 0.1 % (0.0-2.0); PLATELET COUNT 126 K/uL (130-400); RED CELL DISTRIBUTION WIDTH 18.6 % (11.5-14.5)
[2018-07-09 10:25] LABS: HEMOGLOBIN 11.1 g/dL (11.0-16.0)
[2018-07-09] MEDS: Epoetin Alfa 10,000 unit/ml Dialysis IV SCH (10:47)
[2018-07-09] MEDS ORDERED: Albumin Human 25% (12.5 gm/50 ml) IV ONE ×2 (10:53→11:28)
[2018-07-09 11:05] LABS: BANDS 5 % (0-2); LYMPHOCYTE 9 % (20-40); TOTAL CELLS COUNTED 100
[2018-07-09 11:06] LABS: ANISOCYTOSIS SLIGHT; MONOCYTE 8 % (0-10); NEUTROPHIL 78 % (50-75); PLATELET ESTIMATE SLIGHTLY DECREASED (NORMAL); POIKILOCYTOSIS SLIGHT
[2018-07-09 11:07] LABS: OVALOCYTES SLIGHT
--- NOTE | 2018-07-09 16:02 | CP.PCM.PCO ---
Physician Communication Note - Physician Communication Note Physician Communication Note: R CT pulled at 4pm, FU CXR at 8pm
--- NOTE | 2018-07-09 19:25 | CP.PCM.PN ---
Subjective - Date & Time of Evaluation Date of Evaluation: 07/09/18 Time of Evaluation: 19:23 - Subjective Subjective: S: Feels richard. s/p chest tube removed Objective - Vital Signs/Intake and Output Vital Signs (last 24 hours): Temp Pulse Resp BP Pulse Ox 99.8 F H 80 18 111/54 L 100 07/09/18 18:56 07/09/18 11:15 07/09/18 09:50 07/09/18 12:50 07/09/18 09:50 Intake and Output: 07/09/18 07/10/18 18:59 06:59 Output Total 15 Balance -15 - Medications Medications: Current Medications Acetaminophen (Tylenol 325mg Tab) 650 mg PO Q6 PRN PRN Reason: for fever Last Admin: 07/09/18 18:56 Dose: 650 mg Epoetin Milton (Procrit) 10,000 unit IV TTS [facility] Last Admin: 07/09/18 10:47 Dose: 10,000 unit Ethambutol HCl (Myambutol) 800 mg PO TTS [facility]; Protocol Last Admin: 07/09/18 15:00 Dose: 800 mg Hydromorphone HCl (Dilaudid) 0.5 mg IVP Q4H PRN PRN Reason: Pain, severe (8-10) Last Admin: 07/09/18 05:20 Dose: 0.5 mg Meropenem 500 mg/ Sodium (Chloride) 100 mls @ 100 mls/hr IVPB Q12H [facility]; Protocol Last Admin: 07/09/18 10:00 Dose: Not Given Propofol (Diprivan) 1,000 mg in 100 mls @ 1.309 mls/hr IV .Q24H PRN; Protocol PRN Reason: TITRATE PER MD ORDER Last Titration: 07/06/18 07:40 Dose: 0 mcg/kg/min, 0 mls/hr Isoniazid (Niazid) 300 mg PO DAILY [facility]; Protocol Last Admin: 07/09/18 15:00 Dose: 300 mg Metoprolol Succinate (Toprol Xl) 25 mg PO DAILY [facility] Last Admin: 07/09/18 10:00 Dose: Not Given Ondansetron HCl (Zofran Inj) 4 mg IVP Q4 PRN PRN Reason: Nausea/Vomiting Pantoprazole Sodium (Protonix Ec Tab) 40 mg PO DAILY [facility] Last Admin: 07/09/18 10:00 Dose: Not Given Pyrazinamide (Pyrazinamide) 1,000 mg PO TTS [facility]; Protocol Last Admin: 07/09/18 15:00 Dose: 1,000 mg Pyridoxine HCl (Vitamin B6 50 Mg Tab) 50 mg PO DAILY [facility] Last Admin: 07/09/18 10:00 Dose: Not Given Rifampin (Rifampin) 450 mg PO DAILY [facility]; Protocol Last Admin: 07/09/18 15:01 Dose: 450 mg Sevelamer Carbonate (Renvela) 800 mg PO TIDCC [facility] Last Admin: 07/09/18 17:01 Dose: 800 mg Tramadol HCl (Ultram) 25 mg PO TID PRN PRN Reason: Pain, moderate (4-7) - Labs Labs: 07/09/18 10:19 07/09/18 07:27 PT 11.5 SECONDS (9.7-12.2) 07/05/18 06:40 INR 1.1 07/05/18 06:40 APTT 35 SECONDS (21-34) H 07/05/18 06:40 - Constitutional Appears: Chronically Ill - Head Exam Head Exam: NORMAL INSPECTION - Eye Exam Eye Exam: Normal appearance - ENT Exam ENT Exam: Normal Exam - Neck Exam Neck Exam: Normal Inspection - Respiratory Exam Respiratory Exam: Decreased Breath Sounds - Cardiovascular Exam Cardiovascular Exam: REGULAR RHYTHM - GI/Abdominal Exam GI & Abdominal Exam: Soft, Normal Bowel Sounds - Rectal Exam Rectal Exam: Deferred - Extremities Exam Extremities Exam: absent: Pedal Edema - Neurological Exam Neurological Exam: Alert Assessment and Plan (1) Pleural effusion Status: Acute (2) Tachycardia Status: Acute (3) ESRD (end stage renal disease) on dialysis Status: Chronic (4) HTN (hypertension) Status: Chronic (5) Fever Status: Acute - Assessment and Plan (Free Text) Assessment: A/p: Continue medications. For Chest X-ray
--- NOTE | 2018-07-10 07:11 | CP.PCM.PN ---
Subjective - Date & Time of Evaluation Date of Evaluation: 07/10/18 Time of Evaluation: 06:50 - Subjective Subjective: Thoracic Surgery Dr. Lemons Pt S&E @bedside. No acute events overnight. pt has no complaints this AM. reports resolution fo CP now that chest tube is removed. denies F/C, SOB, N/V. tolerating diet. Objective - Vital Signs/Intake and Output Vital Signs (last 24 hours): Temp Pulse Resp BP Pulse Ox 97.5 F L 73 20 110/69 100 07/10/18 04:30 07/10/18 04:30 07/10/18 04:30 07/10/18 04:30 07/10/18 04:30 Intake and Output: 07/10/18 07/10/18 06:59 18:59 Intake Total 120 Balance 120 - Medications Medications: Current Medications Acetaminophen (Tylenol 325mg Tab) 650 mg PO Q6 PRN PRN Reason: for fever Last Admin: 07/09/18 18:56 Dose: 650 mg Epoetin Milton (Procrit) 10,000 unit IV TTS [facility] Last Admin: 07/09/18 10:47 Dose: 10,000 unit Ethambutol HCl (Myambutol) 800 mg PO TTS [facility]; Protocol Last Admin: 07/09/18 15:00 Dose: 800 mg Hydromorphone HCl (Dilaudid) 0.5 mg IVP Q4H PRN PRN Reason: Pain, severe (8-10) Last Admin: 07/09/18 05:20 Dose: 0.5 mg Meropenem 500 mg/ Sodium (Chloride) 100 mls @ 100 mls/hr IVPB Q12H [facility]; Protocol Last Admin: 07/09/18 21:34 Dose: 100 mls/hr Propofol (Diprivan) 1,000 mg in 100 mls @ 1.309 mls/hr IV .Q24H [facility]; Protocol PRN Reason: TITRATE PER MD ORDER Last Titration: 07/06/18 07:40 Dose: 0 mcg/kg/min, 0 mls/hr Isoniazid (Niazid) 300 mg PO DAILY [facility]; Protocol Last Admin: 07/09/18 15:00 Dose: 300 mg Metoprolol Succinate (Toprol Xl) 25 mg PO DAILY [facility] Last Admin: 07/09/18 10:00 Dose: Not Given Ondansetron HCl (Zofran Inj) 4 mg IVP Q4 PRN PRN Reason: Nausea/Vomiting Pantoprazole Sodium (Protonix Ec Tab) 40 mg PO DAILY [facility] Last Admin: 07/09/18 10:00 Dose: Not Given Pyrazinamide (Pyrazinamide) 1,000 mg PO TTS [facility]; Protocol Last Admin: 07/09/18 15:00 Dose: 1,000 mg Pyridoxine HCl (Vitamin B6 50 Mg Tab) 50 mg PO DAILY [facility] Last Admin: 07/09/18 10:00 Dose: Not Given Rifampin (Rifampin) 450 mg PO DAILY [facility]; Protocol Last Admin: 07/09/18 15:01 Dose: 450 mg Sevelamer Carbonate (Renvela) 800 mg PO TIDCC [facility] Last Admin: 07/09/18 17:01 Dose: 800 mg Tramadol HCl (Ultram) 25 mg PO TID PRN PRN Reason: Pain, moderate (4-7) - Labs Labs: 07/09/18 10:19 07/09/18 07:27 PT 11.5 SECONDS (9.7-12.2) 07/05/18 06:40 INR 1.1 07/05/18 06:40 APTT 35 SECONDS (21-34) H 07/05/18 06:40 - Constitutional Appears: Non-toxic, No Acute Distress - Head Exam Head Exam: NORMAL INSPECTION - Eye Exam Eye Exam: Normal appearance - ENT Exam ENT Exam: Mucous Membranes Moist - Respiratory Exam Respiratory Exam: NORMAL BREATHING PATTERN. absent: Accessory Muscle Use, Respiratory Distress Additional comments: dressing c/d/i - Cardiovascular Exam Cardiovascular Exam: REGULAR RHYTHM. absent: Bradycardia, Tachycardia - GI/Abdominal Exam GI & Abdominal Exam: Soft. absent: Distended, Tenderness - Extremities Exam Extremities Exam: Normal Inspection - Neurological Exam Neurological Exam: Alert, Awake, Oriented x3 - Psychiatric Exam Psychiatric exam: Normal Affect, Normal Mood - Skin Skin Exam: Dry, Intact, Normal Color, Warm Assessment and Plan - Assessment and Plan (Free Text) Assessment: 47 y/o F POD#5 s/p right VATs w/ RLL Bx and pleural Bx Plan: - RCT removed yesterday, post-pull CXR clear - cont Abx per ID - f/u pathology - Further care as per primary team - Pt cleared for discharge from surgical standpoint - please reconsult if needed Pt discussed w/ Dr. Vesta Hylton DO PGY3
[2018-07-10 09:24] LABS: BASO % 1.3 % (0.0-2.0); EOS # 0.2 K/uL (0.0-0.7); EOS % 6.2 % (0.0-4.0); HEMOGLOBIN 10.1 g/dL (11.0-16.0); LYMPH # 0.5 K/uL (1.0-4.3); LYMPH % 14.3 % (20.0-40.0); MEAN CORPUSCULAR HEMOGLOBIN 31.9 pg (27.0-31.0); MEAN CORPUSCULAR HGB CONC 31.6 g/dL (33.0-37.0); MONO # 0.2 K/uL (0.0-0.8); MONO % 7.3 % (0.0-10.0); NEUT # 2.4 K/uL (1.8-7.0); NEUT % 70.9 % (50.0-75.0); RBC 3.17 Mil/uL (3.80-5.20); RED CELL DISTRIBUTION WIDTH 19.1 % (11.5-14.5); WHITE BLOOD COUNT 3.3 K/uL (4.8-10.8)
[2018-07-10] MEDS: Metoprolol Succinate 25 mg XL Tab PO SCH (09:28)
[2018-07-10] MEDS: Pantoprazole 40 mg EC Tab PO SCH (09:28)
[2018-07-10] MEDS: Meropenem 500 MG in Sodium Chloride 0.9% 100 ML IVPB SCH ×2 (09:34→21:20)
[2018-07-10 09:47] LABS: ALB/GLOB RATIO 0.8 (1.0-2.1); ALBUMIN 3.2 g/dL (3.5-5.0); CALCIUM 8.7 mg/dl (8.6-10.4)
--- NOTE | 2018-07-10 11:42 | CP.PCM.PN ---
Subjective - Date & Time of Evaluation Date of Evaluation: 07/10/18 Time of Evaluation: 11:42 - Subjective Subjective: Pulmonary follow up, Covering Dr Allen The Patient was seen and examined at the bedside, Medical records reviewed, and management issues were discussed and formulated with the house staff. 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 Denies any chest pain, SOB or Palpitations Objective - Vital Signs/Intake and Output Vital Signs (last 24 hours): Temp Pulse Resp BP Pulse Ox 97.8 F 72 20 114/69 99 07/10/18 08:00 07/10/18 08:00 07/10/18 08:00 07/10/18 08:00 07/10/18 08:00 Intake and Output: 07/10/18 07/10/18 06:59 18:59 Intake Total 120 Balance 120 - Medications Medications: Current Medications Acetaminophen (Tylenol 325mg Tab) 650 mg PO Q6 PRN PRN Reason: for fever Last Admin: 07/09/18 18:56 Dose: 650 mg Epoetin Milton (Procrit) 10,000 unit IV TTS [facility] Last Admin: 07/09/18 10:47 Dose: 10,000 unit Ethambutol HCl (Myambutol) 800 mg PO TTS [facility]; Protocol Last Admin: 07/09/18 15:00 Dose: 800 mg Hydromorphone HCl (Dilaudid) 0.5 mg IVP Q4H PRN PRN Reason: Pain, severe (8-10) Last Admin: 07/09/18 05:20 Dose: 0.5 mg Meropenem 500 mg/ Sodium (Chloride) 100 mls @ 100 mls/hr IVPB Q12H [facility]; Protocol Last Admin: 07/10/18 09:34 Dose: 100 mls/hr Propofol (Diprivan) 1,000 mg in 100 mls @ 1.309 mls/hr IV .Q24H [facility]; Protocol PRN Reason: TITRATE PER MD ORDER Last Titration: 07/06/18 07:40 Dose: 0 mcg/kg/min, 0 mls/hr Isoniazid (Niazid) 300 mg PO DAILY [facility]; Protocol Last Admin: 07/10/18 09:28 Dose: 300 mg Metoprolol Succinate (Toprol Xl) 25 mg PO DAILY [facility] Last Admin: 07/10/18 09:28 Dose: 25 mg Ondansetron HCl (Zofran Inj) 4 mg IVP Q4 PRN PRN Reason: Nausea/Vomiting Pantoprazole Sodium (Protonix Ec Tab) 40 mg PO DAILY [facility] Last Admin: 07/10/18 09:28 Dose: 40 mg Pyrazinamide (Pyrazinamide) 1,000 mg PO TTS [facility]; Protocol Last Admin: 07/09/18 15:00 Dose: 1,000 mg Pyridoxine HCl (Vitamin B6 50 Mg Tab) 50 mg PO DAILY [facility] Last Admin: 07/10/18 09:28 Dose: 50 mg Rifampin (Rifampin) 450 mg PO DAILY [facility]; Protocol Last Admin: 07/10/18 09:28 Dose: 450 mg Sevelamer Carbonate (Renvela) 800 mg PO TIDCC [facility] Last Admin: 07/10/18 09:28 Dose: 800 mg Tramadol HCl (Ultram) 25 mg PO TID PRN PRN Reason: Pain, moderate (4-7) - Labs Labs: 07/10/18 09:17 07/10/18 09:17 PT 11.5 SECONDS (9.7-12.2) 07/05/18 06:40 INR 1.1 07/05/18 06:40 APTT 35 SECONDS (21-34) H 07/05/18 06:40 - Constitutional Appears: Well, Non-toxic - Head Exam Head Exam: ATRAUMATIC, NORMAL INSPECTION, NORMOCEPHALIC - ENT Exam ENT Exam: Mucous Membranes Moist, Normal Exam - Neck Exam Neck Exam: Full ROM, Normal Inspection. absent: Lymphadenopathy - Respiratory Exam Respiratory Exam: Clear to Ausculation Bilateral, NORMAL BREATHING PATTERN - Cardiovascular Exam Cardiovascular Exam: REGULAR RHYTHM, +S1, +S2. absent: Murmur - Neurological Exam Neurological Exam: Alert, Awake, CN II-XII Intact, Oriented x3. 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
[2018-07-10] MEDS: Tramadol 25 mg PO PRN (13:05)
--- NOTE | 2018-07-10 13:50 | RAD ---
Date of service: 07/09/2018 HISTORY: s/p R CT pull COMPARISON: Comparison chest dated 07/09/2018 FINDINGS: Right IJ central venous access catheter with tip in the SVC/RA junction unchanged LUNGS: Interval removal right-sided chest tube.. Right lower lobe atelectasis and or infiltrate with small effusion and possibly a tiny residual pneumothorax (tiny hydropneumothorax). Mild left basilar atelectasis with small left-sided effusion. Central pulmonary venous congestive changes slightly improved PLEURA: As above. CARDIOVASCULAR: No aortic atherosclerotic calcification present. Heart remains enlarged. OSSEOUS STRUCTURES: No significant abnormalities. VISUALIZED UPPER ABDOMEN: Normal. OTHER FINDINGS: None. IMPRESSION: Interval removal right-sided chest tube.. Right lower lobe atelectasis and or infiltrate with small effusion and possibly a tiny residual pneumothorax (tiny hydropneumothorax). Mild left basilar atelectasis with small left-sided effusion. Central pulmonary venous congestive changes slightly improved
--- NOTE | 2018-07-10 15:19 | CP.PCM.PN ---
Subjective - Date & Time of Evaluation Date of Evaluation: 07/10/18 Time of Evaluation: 09:00 - Subjective Subjective: afeb iv rx renewed Objective - Vital Signs/Intake and Output Vital Signs (last 24 hours): Temp Pulse Resp BP Pulse Ox 97.8 F 72 20 114/69 99 07/10/18 08:00 07/10/18 08:00 07/10/18 08:00 07/10/18 08:00 07/10/18 08:00 Intake and Output: 07/10/18 07/10/18 06:59 18:59 Intake Total 120 400 Balance 120 400 - Medications Medications: Current Medications Acetaminophen (Tylenol 325mg Tab) 650 mg PO Q6 PRN PRN Reason: for fever Last Admin: 07/09/18 18:56 Dose: 650 mg Epoetin Milton (Procrit) 10,000 unit IV TTS [facility] Last Admin: 07/09/18 10:47 Dose: 10,000 unit Ethambutol HCl (Myambutol) 800 mg PO TTS [facility]; Protocol Last Admin: 07/09/18 15:00 Dose: 800 mg Hydromorphone HCl (Dilaudid) 0.5 mg IVP Q4H PRN PRN Reason: Pain, severe (8-10) Last Admin: 07/09/18 05:20 Dose: 0.5 mg Meropenem 500 mg/ Sodium (Chloride) 100 mls @ 100 mls/hr IVPB Q12H [facility]; Prot ocol Last Admin: 07/10/18 09:34 Dose: 100 mls/hr Propofol (Diprivan) 1,000 mg in 100 mls @ 1.309 mls/hr IV .Q24H [facility]N; Protocol PRN Reason: TITRATE PER MD ORDER Last Titration: 07/06/18 07:40 Dose: 0 mcg/kg/min, 0 mls/hr Isoniazid (Niazid) 300 mg PO DAILY [facility]; Protocol Last Admin: 07/10/18 09:28 Dose: 300 mg Metoprolol Succinate (Toprol Xl) 25 mg PO DAILY [facility] Last Admin: 07/10/18 09:28 Dose: 25 mg Ondansetron HCl (Zofran Inj) 4 mg IVP Q4 PRN PRN Reason: Nausea/Vomiting Pantoprazole Sodium (Protonix Ec Tab) 40 mg PO DAILY [facility] Last Admin: 07/10/18 09:28 Dose: 40 mg Pyrazinamide (Pyrazinamide) 1,000 mg PO TTS [facility]; Protocol Last Admin: 07/09/18 15:00 Dose: 1,000 mg Pyridoxine HCl (Vitamin B6 50 Mg Tab) 50 mg PO DAILY [facility] Last Admin: 07/10/18 09:28 Dose: 50 mg Rifampin (Rifampin) 450 mg PO DAILY [facility]; Protocol Last Admin: 07/10/18 09:28 Dose: 450 mg Sevelamer Carbonate (Renvela) 800 mg PO TIDCC [facility] Last Admin: 07/10/18 12:51 Dose: 800 mg Tramadol HCl (Ultram) 25 mg PO TID PRN PRN Reason: Pain, moderate (4-7) Last Admin: 07/10/18 13:05 Dose: 25 mg - Labs Labs: 07/10/18 09:17 07/10/18 09:17 PT 11.5 SECONDS (9.7-12.2) 07/05/18 06:40 INR 1.1 07/05/18 06:40 APTT 35 SECONDS (21-34) H 07/05/18 06:40 - Constitutional Appears: Non-toxic, No Acute Distress, Cachectic, Chronically Ill - Head Exam Head Exam: ATRAUMATIC, NORMAL INSPECTION, NORMOCEPHALIC - Eye Exam Eye Exam: EOMI, Normal appearance, PERRL Pupil Exam: NORMAL ACCOMODATION, PERRL - ENT Exam ENT Exam: Mucous Membranes Moist, Normal Exam - Neck Exam Neck Exam: Full ROM, Normal Inspection. absent: Lymphadenopathy - Respiratory Exam Respiratory Exam: Clear to Ausculation Bilateral, NORMAL BREATHING PATTERN - Cardiovascular Exam Cardiovascular Exam: REGULAR RHYTHM, +S1, +S2. absent: Murmur - GI/Abdominal Exam GI & Abdominal Exam: Soft, Normal Bowel Sounds. absent: Tenderness - Rectal Exam Rectal Exam: Deferred - Exam Exam: NORMAL INSPECTION - Extremities Exam Extremities Exam: Full ROM, Normal Capillary Refill, Normal Inspection. absent: Joint Swelling, Pedal Edema - Back Exam Back Exam: NORMAL INSPECTION - Neurological Exam Neurological Exam: Alert, Awake, CN II-XII Intact, Normal Gait, Oriented x3 - Psychiatric Exam Psychiatric exam: Normal Affect, Normal Mood - Skin Skin Exam: Dry, Intact, Normal Color, Warm Assessment and Plan (1) ESRD (end stage renal disease) Status: Acute (2) Pleural effusion Status: Acute (3) Fever Status: Acute (4) Hypertensive chronic kidney disease with stage 5 chronic kidney disease or end stage renal disease Status: Acute (5) Pneumonia Status: Acute (6) ESRD (end stage renal disease) on dialysis Status: Chronic - Assessment and Plan (Free Text) Assessment: will renew iv rx
[2018-07-11] MEDS: HYDROmorphone 0.5 mg/0.5 ml ISec IVP PRN (00:29)
--- NOTE | 2018-07-11 06:44 | OP ---
PROCEDURE DATE: 07/05/2018 PREOPERATIVE DIAGNOSES: Recurrent symptomatic right pleural effusion, respiratory insufficiency. POSTOPERATIVE DIAGNOSES: Recurrent symptomatic right pleural effusion, respiratory insufficiency. PROCEDURE: 1. Regional intercostal nerve block (multiple). 2. Right video-assisted thoracoscopic surgery with pleural biopsy. 3. Intrapleural pneumolysis. 4. Removal of fibrinous debris. 5. Right lower lobe wedge resection. SURGEON: Von Lemons M.D. HOME HEALTH SPEECH THERAPIST: Malika Recinos DO, PGY-4 General Surgery Resident. ANESTHESIA: General. ANESTHESIOLOGIST: As per record. INDICATIONS: As above. SPECIMENS: Right pleural fluid, right pleura, and right lower lobe wedge. ESTIMATED BLOOD LOSS: Minimal. PROCEDURE IN DETAIL: The patient was identified by the operating room staff and placed supine on to the operating room table. Bilateral Venodynes were placed. Adequate IV access was ensured by the anesthesiologist. Prophylactic IV antibiotics were administered. General endotracheal anesthesia was induced uneventfully. Ramirez catheter was not inserted given the fact that the patient has end-stage renal disease and is receiving dialysis. The patient was then turned to the left lateral decubitus position and maintained there with a beanbag. All pressure points were appropriately padded. With maximal hip flexion, the patient was securely positioned, prepped and draped in the usual sterile fashion. A regional intercostal nerve block was performed of the entire right lateral chest wall by infiltrating 0.25% Marcaine in all the intercostal spaces just medial to the vertebral takeoffs. A uniportal right VATS was next performed via a single port site at the junction of the seventh intercostal space posterior axillary line junction. Upon entering the hemithorax, significant amounts of straw-colored viscous fluid were evacuated. There was no evidence of blood. There was no evidence of pus. The fluid was completely evacuated and sampled. There was evidence of inflamed pleura, although there was no evidence of any pleural studding. Random biopsies of full thickness were taken and sent off the field as specimen. There was also a moderate amount of fibrinous adhesions in the posterior basilar and posterior lateral portions of the hemithorax. These were taken down primarily with gentle blunt manipulation and cautery as deemed necessary. All residual fibrinous debris was evacuated with instrumentation and some of it sent for specimen as well. The combination of the pneumolysis and the removal of the fibrinous debris allowed full lung expansion. There was an area of concern on the right lower lobe as far as parenchyma that was amenable to a quick wedge biopsy. This was performed with sequential firings of a linear Endo-ROSIBEL stapler using a thick parenchymal load. The specimen was removed and extricated from the pleural cavity and passed off the field as a specimen. The staple line was hemostatic and no evidence of any air leak. The hemothorax was drained with a single 28-[place] chest tube placed through an inferior stab wound and guided in a posterior apical fashion. Two-lung ventilation resumed and good pleural apposition was noted. The chest tube was anchored to the skin with a heavy monofilament suture and then attached to sterile Pleur-evac tubing and placed on suction. Sterile dressings were applied. Additional regional intercostal nerve block was performed by infiltrating the long-acting Marcaine referred to as Exparel. The patient was then laid supine, allowed to awaken, was extubated uneventfully. She was transferred back to the postanesthesia care unit with stable hemodynamics and stable respiratory status. All counts were correct x2. This was performed at [facility] and this was the second procedure for her in this hospital admission. Von Lemons M.D.
--- NOTE | 2018-07-11 08:07 | CP.PCM.PN ---
Subjective - Date & Time of Evaluation Date of Evaluation: 07/11/18 Time of Evaluation: 07:49 - Subjective Subjective: Pt has no complain of CP, mild SOB w/ effort. Very minimal dry cough, no n/v, no diarrhea Objective - Vital Signs/Intake and Output Vital Signs (last 24 hours): Temp Pulse Resp BP Pulse Ox 98.1 F 81 20 118/71 100 07/10/18 23:15 07/10/18 23:15 07/10/18 23:15 07/10/18 23:15 07/10/18 23:15 - Medications Medications: Current Medications Acetaminophen (Tylenol 325mg Tab) 650 mg PO Q6 PRN PRN Reason: for fever Last Admin: 07/09/18 18:56 Dose: 650 mg Epoetin Milton (Procrit) 10,000 unit IV TTS [facility] Last Admin: 07/09/18 10:47 Dose: 10,000 unit Ethambutol HCl (Myambutol) 800 mg PO TTS [facility]; Protocol Last Admin: 07/09/18 15:00 Dose: 800 mg Hydromorphone HCl (Dilaudid) 0.5 mg IVP Q4H PRN PRN Reason: Pain, severe (8-10) Last Admin: 07/11/18 00:29 Dose: 0.5 mg Meropenem 500 mg/ Sodium (Chloride) 100 mls @ 100 mls/hr IVPB Q12H [facility]; Protocol Last Admin: 07/10/18 21:20 Dose: 100 mls/hr Propofol (Diprivan) 1,000 mg in 100 mls @ 1.309 mls/hr IV .Q24H PRN; Protocol PRN Reason: TITRATE PER MD ORDER Last Titration: 07/06/18 07:40 Dose: 0 mcg/kg/min, 0 mls/hr Metoprolol Succinate (Toprol Xl) 25 mg PO DAILY [facility] Last Admin: 07/10/18 09:28 Dose: 25 mg Ondansetron HCl (Zofran Inj) 4 mg IVP Q4 PRN PRN Reason: Nausea/Vomiting Pantoprazole Sodium (Protonix Ec Tab) 40 mg PO DAILY [facility] Last Admin: 07/10/18 09:28 Dose: 40 mg Pyrazinamide (Pyrazinamide) 1,000 mg PO TTS [facility]; Protocol Last Admin: 07/09/18 15:00 Dose: 1,000 mg Pyridoxine HCl (Vitamin B6 50 Mg Tab) 50 mg PO DAILY [facility] Last Admin: 07/10/18 09:28 Dose: 50 mg Rifampin (Rifampin) 450 mg PO DAILY [facility]; Protocol Last Admin: 07/10/18 09:28 Dose: 450 mg Sevelamer Carbonate (Renvela) 800 mg PO TIDCC [facility] Last Admin: 07/11/18 07:45 Dose: Not Given Tramadol HCl (Ultram) 25 mg PO TID PRN PRN Reason: Pain, moderate (4-7) Last Admin: 07/10/18 13:05 Dose: 25 mg - Labs Labs: 07/10/18 09:17 07/10/18 09:17 PT 11.5 SECONDS (9.7-12.2) 07/05/18 06:40 INR 1.1 07/05/18 06:40 APTT 35 SECONDS (21-34) H 07/05/18 06:40 - Constitutional Appears: No Acute Distress - Eye Exam Eye Exam: Normal appearance - ENT Exam ENT Exam: Mucous Membranes Moist - Neck Exam Neck Exam: Full ROM. absent: Lymphadenopathy, Normal Inspection - Respiratory Exam Respiratory Exam: Decreased Breath Sounds. absent: Rales, Rhonchi, Wheezes - Cardiovascular Exam Cardiovascular Exam: +S1, +S2. absent: Gallop, REGULAR RHYTHM, JVD, Murmur - GI/Abdominal Exam GI & Abdominal Exam: Soft. absent: Tenderness - Extremities Exam Extremities Exam: Full ROM, Normal Capillary Refill. absent: Calf Tenderness, Joint Swelling, Pedal Edema Assessment and Plan - Assessment and Plan (Free Text) Assessment: Pneumonia on R; [place] Effusion x s/p removal of CT ESRD; HTN Cont IV antibx; RIPE Supportive care Discuss in lenght ? still unknown etiology of large effusion
[2018-07-11 08:11] LABS: BASO % 0.7 % (0.0-2.0); EOS # 0.3 K/uL (0.0-0.7); EOS % 11.2 % (0.0-4.0); HEMOGLOBIN 9.3 g/dL (11.0-16.0); LYMPH # 0.4 K/uL (1.0-4.3); LYMPH % 15.1 % (20.0-40.0); MEAN CELL VOLUME 100.8 fL (81.0-99.0); MEAN CORPUSCULAR HEMOGLOBIN 32.1 pg (27.0-31.0); MEAN CORPUSCULAR HGB CONC 31.9 g/dL (33.0-37.0); MEAN PLATELET VOLUME 8.8 fL (7.2-11.7); MONO # 0.2 K/uL (0.0-0.8); NEUT # 1.6 K/uL (1.8-7.0); NRBC % 0.1 % (0.0-2.0); RBC 2.9 Mil/uL (3.80-5.20); RED CELL DISTRIBUTION WIDTH 18.7 % (11.5-14.5); WHITE BLOOD COUNT 2.5 K/uL (4.8-10.8)
[2018-07-11 08:26] LABS: ALB/GLOB RATIO 0.7 (1.0-2.1); ALBUMIN 2.5 g/dL (3.5-5.0); CALCIUM 8.5 mg/dl (8.6-10.4)
[2018-07-11 08:27] LABS: ALB/GLOB RATIO 0.7 (1.0-2.1); ALBUMIN 2.5 g/dL (3.5-5.0); BILIRUBIN,DIRECT 1.2 mg/dL (0.0-0.4)
[2018-07-11 09:00] LABS: HEPATITIS B SURFACE AG Negative (NEGATIVE)
[2018-07-11 09:06] LABS: HEPATITIS A IGM NEGATIVE (NEGATIVE); HEPATITIS B CORE AB NEGATIVE (NEGATIVE)
[2018-07-11 09:17] LABS: HEPATITIS C ANTIBODY NEGATIVE (NEGATIVE)
[2018-07-11] MEDS: Pantoprazole 40 mg EC Tab PO SCH (10:02)
[2018-07-11] MEDS: Metoprolol Succinate 25 mg XL Tab PO SCH (10:02)
[2018-07-11] MEDS: Meropenem 500 MG in Sodium Chloride 0.9% 100 ML IVPB SCH ×2 (10:02→21:13)
--- NOTE | 2018-07-11 10:32 | US ---
Date of service: 07/11/2018 HISTORY: Elevated LFT's COMPARISON: CT abdomen and pelvis from 04/09/2018. TECHNIQUE: Grayscale imaging was performed. FINDINGS: LIVER: Measures 12.6 cm. There is diffuse increased echogenicity of the liver parenchyma. No mass. No intrahepatic bile duct dilatation. GALLBLADDER: There are no gallstones or pericholecystic fluid. Mild diffuse gallbladder wall thickening which measures 5 mm. The sonographic Malone's sign is negative. COMMON BILE DUCT: Measures 3.0 mm. No stones. No dilatation. PANCREAS: Unremarkable as visualized. No mass. No ductal dilatation. RIGHT KIDNEY: Measures 3.1cm. Small atrophic kidney with diffuse increased echogenicity. No hydronephrosis. There is a 9 mm simple cyst in the upper pole. LEFT KIDNEY: Measures 7.4cm. Small kidney. Diffuse increased cortical echogenicity with loss of corticomedullary differentiation. There is a 1.2 cm simple cyst in the interpolar region. No hydronephrosis. SPLEEN: Normal in size and contour. No mass. AORTA: No aneurysmal dilatation. IVC: Unremarkable. OTHER FINDINGS: There is a small right pleural effusion. IMPRESSION: 1. Fatty liver. 2. Chronic renal parenchymal disease with atrophic right kidney and small left kidney. 3. Mild diffuse gallbladder wall thickening nonspecific and likely secondary related to edema.
--- NOTE | 2018-07-11 11:20 | CP.PCM.PN ---
Subjective - Date & Time of Evaluation Date of Evaluation: 07/11/18 Time of Evaluation: 11:18 - Subjective Subjective: alert stable dialysis 3/2 Hg lower- to monitor no more dyspnea CT removed Objective - Vital Signs/Intake and Output Vital Signs (last 24 hours): Temp Pulse Resp BP Pulse Ox 98.4 F 76 20 109/63 100 07/11/18 08:08 07/11/18 08:08 07/11/18 08:08 07/11/18 08:08 07/11/18 08:08 - Medications Medications: Current Medications Acetaminophen (Tylenol 325mg Tab) 650 mg PO Q6 PRN PRN Reason: for fever Last Admin: 07/09/18 18:56 Dose: 650 mg Epoetin Milton (Procrit) 10,000 unit IV TTS [facility] Last Admin: 07/09/18 10:47 Dose: 10,000 unit Ethambutol HCl (Myambutol) 800 mg PO TTS [facility]; Protocol Last Admin: 07/09/18 15:00 Dose: 800 mg Hydromorphone HCl (Dilaudid) 0.5 mg IVP Q4H PRN PRN Reason: Pain, severe (8-10) Last Admin: 07/11/18 00:29 Dose: 0.5 mg Meropenem 500 mg/ Sodium (Chloride) 100 mls @ 100 mls/hr IVPB Q12H [facility]; Protocol Last Admin: 07/11/18 10:02 Dose: 100 mls/hr Propofol (Diprivan) 1,000 mg in 100 mls @ 1.309 mls/hr IV .Q24H [facility]; Protocol PRN Reason: TITRATE PER MD ORDER Last Titration: 07/06/18 07:40 Dose: 0 mcg/kg/min, 0 mls/hr Metoprolol Succinate (Toprol Xl) 25 mg PO DAILY [facility] Last Admin: 07/11/18 10:02 Dose: 25 mg Ondansetron HCl (Zofran Inj) 4 mg IVP Q4 PRN PRN Reason: Nausea/Vomiting Pyrazinamide (Pyrazinamide) 1,000 mg PO TTS [facility]; Protocol Last Admin: 07/09/18 15:00 Dose: 1,000 mg Pyridoxine HCl (Vitamin B6 50 Mg Tab) 50 mg PO DAILY [facility] Last Admin: 07/11/18 10:02 Dose: 50 mg Sevelamer Carbonate (Renvela) 800 mg PO TIDCC [facility] Last Admin: 07/11/18 07:45 Dose: Not Given Tramadol HCl (Ultram) 25 mg PO TID PRN PRN Reason: Pain, moderate (4-7) Last Admin: 07/10/18 13:05 Dose: 25 mg - Labs Labs: 07/11/18 07:55 07/11/18 07:55 PT 11.5 SECONDS (9.7-12.2) 07/05/18 06:40 INR 1.1 07/05/18 06:40 APTT 35 SECONDS (21-34) H 07/05/18 06:40 - Constitutional Appears: Non-toxic, No Acute Distress - Head Exam Head Exam: ATRAUMATIC, NORMAL INSPECTION - Eye Exam Eye Exam: EOMI, Normal appearance - Neck Exam Neck Exam: Normal Inspection. absent: Tenderness - Cardiovascular Exam Cardiovascular Exam: REGULAR RHYTHM, +S1 - GI/Abdominal Exam GI & Abdominal Exam: Soft. absent: Tenderness - Extremities Exam Extremities Exam: Normal Inspection. absent: Tenderness - Neurological Exam Neurological Exam: Awake, CN II-XII Intact - Skin Skin Exam: Dry, Warm Assessment and Plan (1) ESRD (end stage renal disease) Status: Acute (2) Fever Status: Acute (3) HTN (hypertension) Status: Chronic (4) IgA nephropathy Status: Acute (5) Pneumonia Status: Acute - Assessment and Plan (Free Text) Plan: dialysis TTS Treat for afb + just reported antimicrobials as per ID
--- NOTE | 2018-07-11 14:30 | CP.PCM.PN ---
Subjective - Date & Time of Evaluation Date of Evaluation: 07/11/18 Time of Evaluation: 13:00 - Subjective Subjective: Patient seen and examined Denies cough, denies shortness of breath Pleural fluid positive for AFB 3 AFB negative in the sputum On respiratory isolation? Objective - Vital Signs/Intake and Output Vital Signs (last 24 hours): Temp Pulse Resp BP Pulse Ox 98.4 F 76 20 109/63 100 07/11/18 08:08 07/11/18 08:08 07/11/18 08:08 07/11/18 08:08 07/11/18 08:08 - Medications Medications: Current Medications Acetaminophen (Tylenol 325mg Tab) 650 mg PO Q6 PRN PRN Reason: for fever Last Admin: 07/09/18 18:56 Dose: 650 mg Epoetin Milton (Procrit) 10,000 unit IV TTS [facility] Last Admin: 07/09/18 10:47 Dose: 10,000 unit Ethambutol HCl (Myambutol) 800 mg PO TTS [facility]; Protocol Last Admin: 07/09/18 15:00 Dose: 800 mg Hydromorphone HCl (Dilaudid) 0.5 mg IVP Q4H PRN PRN Reason: Pain, severe (8-10) Last Admin: 07/11/18 00:29 Dose: 0.5 mg Meropenem 500 mg/ Sodium (Chloride) 100 mls @ 100 mls/hr IVPB Q12H [facility]; Protocol Last Admin: 07/11/18 10:02 Dose: 100 mls/hr Propofol (Diprivan) 1,000 mg in 100 mls @ 1.309 mls/hr IV .Q24H PRN; Protocol PRN Reason: TITRATE PER MD ORDER Last Titration: 07/06/18 07:40 Dose: 0 mcg/kg/min, 0 mls/hr Metoprolol Succinate (Toprol Xl) 25 mg PO DAILY [facility] Last Admin: 07/11/18 10:02 Dose: 25 mg Ondansetron HCl (Zofran Inj) 4 mg IVP Q4 PRN PRN Reason: Nausea/Vomiting Pyrazinamide (Pyrazinamide) 1,000 mg PO TTS [facility]; Protocol Last Admin: 07/09/18 15:00 Dose: 1,000 mg Pyridoxine HCl (Vitamin B6 50 Mg Tab) 50 mg PO DAILY [facility] Last Admin: 07/11/18 10:02 Dose: 50 mg Sevelamer Carbonate (Renvela) 800 mg PO TIDCC [facility] Last Admin: 07/11/18 12:26 Dose: 800 mg Tramadol HCl (Ultram) 25 mg PO TID PRN PRN Reason: Pain, moderate (4-7) Last Admin: 07/10/18 13:05 Dose: 25 mg - Labs Labs: 07/11/18 07:55 07/11/18 07:55 PT 11.5 SECONDS (9.7-12.2) 07/05/18 06:40 INR 1.1 07/05/18 06:40 APTT 35 SECONDS (21-34) H 07/05/18 06:40 - Head Exam Head Exam: ATRAUMATIC, NORMOCEPHALIC - ENT Exam ENT Exam: Mucous Membranes Moist - Neck Exam Neck Exam: Normal Inspection - Respiratory Exam Respiratory Exam: Decreased Breath Sounds - Cardiovascular Exam Cardiovascular Exam: REGULAR RHYTHM Assessment and Plan (1) Pleural effusion Assessment & Plan: Tuberculous effusion Continue anti-TB meds Does not need respiratory isolation Continue hemodialysis Nucleic amplification test Status: Acute (2) ESRD (end stage renal disease) Status: Acute
--- NOTE | 2018-07-11 23:11 | CP.PCM.PN ---
Subjective - Date & Time of Evaluation Date of Evaluation: 07/11/18 Time of Evaluation: 07:00 - Subjective Subjective: + AFB SMEAR Objective - Vital Signs/Intake and Output Vital Signs (last 24 hours): Temp Pulse Resp BP Pulse Ox 98.2 F 86 20 121/75 95 07/11/18 15:00 07/11/18 15:00 07/11/18 15:00 07/11/18 15:00 07/11/18 15:00 Intake and Output: 07/11/18 07/12/18 18:59 06:59 Intake Total 350 400 Balance 350 400 - Medications Medications: Current Medications Epoetin Milton (Procrit) 10,000 unit IV TTS [facility] Last Admin: 07/09/18 10:47 Dose: 10,000 unit Ethambutol HCl (Myambutol) 800 mg PO TTS [facility]; Protocol Last Admin: 07/09/18 15:00 Dose: 800 mg Hydromorphone HCl (Dilaudid) 0.5 mg IVP Q4H PRN PRN Reason: Pain, severe (8-10) Last Admin: 07/11/18 00:29 Dose: 0.5 mg Meropenem 500 mg/ Sodium (Chloride) 100 mls @ 100 mls/hr IVPB Q12H [facility]; Protocol Last Admin: 07/11/18 21:13 Dose: 100 mls/hr Propofol (Diprivan) 1,000 mg in 100 mls @ 1.309 mls/hr IV .Q24H PRN; Protocol PRN Reason: TITRATE PER MD ORDER Last Titration: 07/06/18 07:40 Dose: 0 mcg/kg/min, 0 mls/hr Metoprolol Succinate (Toprol Xl) 25 mg PO DAILY [facility] Last Admin: 07/11/18 10:02 Dose: 25 mg Ondansetron HCl (Zofran Inj) 4 mg IVP Q4 PRN PRN Reason: Nausea/Vomiting Pyrazinamide (Pyrazinamide) 1,000 mg PO TTS [facility]; Protocol Last Admin: 07/09/18 15:00 Dose: 1,000 mg Pyridoxine HCl (Vitamin B6 50 Mg Tab) 50 mg PO DAILY [facility] Last Admin: 07/11/18 10:02 Dose: 50 mg Tramadol HCl (Ultram) 25 mg PO TID PRN PRN Reason: Pain, moderate (4-7) Last Admin: 07/10/18 13:05 Dose: 25 mg - Labs Labs: 07/11/18 07:55 07/11/18 07:55 PT 11.5 SECONDS (9.7-12.2) 07/05/18 06:40 INR 1.1 07/05/18 06:40 APTT 35 SECONDS (21-34) H 07/05/18 06:40 - Constitutional Appears: Non-toxic, Cachectic, Chronically Ill - Head Exam Head Exam: NORMOCEPHALIC - Eye Exam Eye Exam: absent: Scleral icterus Pupil Exam: NORMAL ACCOMODATION - ENT Exam ENT Exam: Mucous Membranes Dry - Neck Exam Neck Exam: absent: Lymphadenopathy - Respiratory Exam Respiratory Exam: Decreased Breath Sounds - Cardiovascular Exam Cardiovascular Exam: REGULAR RHYTHM - GI/Abdominal Exam GI & Abdominal Exam: Distended, Soft - Extremities Exam Extremities Exam: absent: Pedal Edema - Back Exam Back Exam: absent: CVA tenderness (L), CVA tenderness (R) - Neurological Exam Neurological Exam: Alert, Awake, CN II-XII Intact - Psychiatric Exam Psychiatric exam: Depressed - Skin Skin Exam: Dry Assessment and Plan (1) ESRD (end stage renal disease) Status: Acute (2) Pleural effusion Status: Acute (3) Fever Status: Acute (4) Hypertensive chronic kidney disease with stage 5 chronic kidney disease or end stage renal disease Status: Acute (5) Pneumonia Status: Acute (6) ESRD (end stage renal disease) on dialysis Status: Chronic
[2018-07-12] MEDS: HYDROmorphone 0.5 mg/0.5 ml ISec IVP PRN (00:45)
[2018-07-12 07:54] LABS: BASO % 1.1 % (0.0-2.0); EOS # 0.5 K/uL (0.0-0.7); EOS % 15.5 % (0.0-4.0); HEMOGLOBIN 8.9 g/dL (11.0-16.0); LYMPH # 0.4 K/uL (1.0-4.3); LYMPH % 13.7 % (20.0-40.0); MEAN CELL VOLUME 100.4 fL (81.0-99.0); MEAN CORPUSCULAR HEMOGLOBIN 31.2 pg (27.0-31.0); MEAN CORPUSCULAR HGB CONC 31.1 g/dL (33.0-37.0); MEAN PLATELET VOLUME 8.8 fL (7.2-11.7); MONO # 0.3 K/uL (0.0-0.8); MONO % 10.1 % (0.0-10.0); NEUT # 1.8 K/uL (1.8-7.0); NEUT % 59.6 % (50.0-75.0); NRBC % 0.1 % (0.0-2.0); RBC 2.86 Mil/uL (3.80-5.20); RED CELL DISTRIBUTION WIDTH 18.9 % (11.5-14.5)
[2018-07-12 08:20] LABS: ALB/GLOB RATIO 0.7 (1.0-2.1); ALBUMIN 2.5 g/dL (3.5-5.0); CALCIUM 8.5 mg/dl (8.6-10.4)
[2018-07-12] MEDS: Metoprolol Succinate 25 mg XL Tab PO SCH (09:11)
[2018-07-12] MEDS: Meropenem 500 MG in Sodium Chloride 0.9% 100 ML IVPB SCH ×2 (09:44→21:08)
--- NOTE | 2018-07-12 10:21 | CP.PCM.PN ---
Subjective - Date & Time of Evaluation Date of Evaluation: 07/12/18 Time of Evaluation: 10:20 - Subjective Subjective: comforbale in bed afebrile bp stable cbc chems noted ROS no fever no chest pain sob no cough hemoptysis no abd pain,n,v,d no dysuria Objective - Vital Signs/Intake and Output Vital Signs (last 24 hours): Temp Pulse Resp BP Pulse Ox 97.7 F 75 20 109/59 L 100 07/12/18 07:10 07/12/18 07:10 07/12/18 07:10 07/12/18 07:10 07/12/18 07:10 Intake and Output: 07/12/18 07/12/18 06:59 18:59 Intake Total 400 Balance 400 - Medications Medications: Current Medications Epoetin Milton (Procrit) 10,000 unit IV TTS [facility] Last Admin: 07/09/18 10:47 Dose: 10,000 unit Ethambutol HCl (Myambutol) 800 mg PO TTS [facility]; Protocol Last Admin: 07/12/18 09:11 Dose: 800 mg Hydromorphone HCl (Dilaudid) 0.5 mg IVP Q4H PRN PRN Reason: Pain, severe (8-10) Last Admin: 07/12/18 00:45 Dose: 0.5 mg Meropenem 500 mg/ Sodium (Chloride) 100 mls @ 100 mls/hr IVPB Q12H [facility]; Protocol Last Admin: 07/12/18 09:44 Dose: 100 mls/hr Propofol (Diprivan) 1,000 mg in 100 mls @ 1.309 mls/hr IV .Q24H PRN; Protocol PRN Reason: TITRATE PER MD ORDER Last Titration: 07/06/18 07:40 Dose: 0 mcg/kg/min, 0 mls/hr Metoprolol Succinate (Toprol Xl) 25 mg PO DAILY [facility] Last Admin: 07/12/18 09:11 Dose: 25 mg Ondansetron HCl (Zofran Inj) 4 mg IVP Q4 PRN PRN Reason: Nausea/Vomiting Pyrazinamide (Pyrazinamide) 1,000 mg PO TTS [facility]; Protocol Last Admin: 07/12/18 09:11 Dose: 1,000 mg Pyridoxine HCl (Vitamin B6 50 Mg Tab) 50 mg PO DAILY [facility] Last Admin: 07/12/18 09:11 Dose: 50 mg Tramadol HCl (Ultram) 25 mg PO TID PRN PRN Reason: Pain, moderate (4-7) Last Admin: 07/10/18 13:05 Dose: 25 mg - Labs Labs: 07/12/18 07:34 07/12/18 07:34 PT 11.5 SECONDS (9.7-12.2) 07/05/18 06:40 INR 1.1 07/05/18 06:40 APTT 35 SECONDS (21-34) H 07/05/18 06:40 - Constitutional Appears: No Acute Distress - Eye Exam Eye Exam: Normal appearance - ENT Exam ENT Exam: Mucous Membranes Moist - Respiratory Exam Respiratory Exam: Decreased Breath Sounds, NORMAL BREATHING PATTERN Additional comments: diminshed sounds at bases - Cardiovascular Exam Cardiovascular Exam: REGULAR RHYTHM - GI/Abdominal Exam GI & Abdominal Exam: Soft. absent: Distended, Tenderness - Extremities Exam Extremities Exam: absent: Calf Tenderness - Back Exam Back Exam: absent: CVA tenderness (L), CVA tenderness (R) - Neurological Exam Neurological Exam: Alert, Awake - Psychiatric Exam Psychiatric exam: Flat Affect - Skin Skin Exam: Dry, Warm Assessment and Plan (1) ESRD (end stage renal disease) Assessment & Plan: dialysis today try to ultrafiltrate Status: Acute (2) Pleural effusion Status: Acute (3) HTN (hypertension) Status: Chronic
[2018-07-12] MEDS: Epoetin Alfa 10,000 unit/ml Dialysis IV SCH (15:07)
--- NOTE | 2018-07-12 15:27 | CP.PCM.PN ---
Subjective - Date & Time of Evaluation Date of Evaluation: 07/12/18 Time of Evaluation: 14:00 - Subjective Subjective: Patient seen and examined at bedside. She denies cough and dyspnea. Pleural fluid positive for AFB. 3 AFB negative in the sputum in the past On respiratory isolation? Does not need it. Afebrile. Physical Exam General: AAOx3 Cardio: RRR, no murmur Pulm: Decreased breath sounds Abd: Soft, non-distended A/P? Tuberculosis effusion - Continue anti-TB meds - Continue hemodialysis Objective - Vital Signs/Intake and Output Vital Signs (last 24 hours): Temp Pulse Resp BP Pulse Ox 97.8 F 76 17 128/75 100 07/12/18 13:25 07/12/18 13:25 07/12/18 13:25 07/12/18 14:55 07/12/18 13:25 Intake and Output: 07/12/18 07/12/18 06:59 18:59 Intake Total 400 Balance 400 - Medications Medications: Current Medications Epoetin Milton (Procrit) 10,000 unit IV TTS [facility] Last Admin: 07/12/18 15:07 Dose: 10,000 unit Ethambutol HCl (Myambutol) 800 mg PO TTS [facility]; Protocol Heparin Sodium (Porcine) (Heparin (For Dialysis)) 3,700 units IVP TTS [facility] Stop: 07/26/18 23:00 Last Admin: 07/12/18 15:05 Dose: 3,700 units Hydromorphone HCl (Dilaudid) 0.5 mg IVP Q4H PRN PRN Reason: Pain, severe (8-10) Last Admin: 07/12/18 00:45 Dose: 0.5 mg Meropenem 500 mg/ Sodium (Chloride) 100 mls @ 100 mls/hr IVPB Q12H [facility]; Protocol Last Admin: 07/12/18 09:44 Dose: 100 mls/hr Propofol (Diprivan) 1,000 mg in 100 mls @ 1.309 mls/hr IV .Q24H PRN; Protocol PRN Reason: TITRATE PER MD ORDER Last Titration: 07/06/18 07:40 Dose: 0 mcg/kg/min, 0 mls/hr Isoniazid (Niazid) 300 mg PO DAILY@1600 [facility]; Protocol Metoprolol Succinate (Toprol Xl) 25 mg PO DAILY [facility] Last Admin: 07/12/18 09:11 Dose: 25 mg Ondansetron HCl (Zofran Inj) 4 mg IVP Q4 PRN PRN Reason: Nausea/Vomiting Pyrazinamide (Pyrazinamide) 1,000 mg PO TTS [facility]; Protocol Pyridoxine HCl (Vitamin B6 50 Mg Tab) 50 mg PO DAILY [facility] Last Admin: 07/12/18 09:11 Dose: 50 mg Rifampin (Rifampin) 450 mg PO DAILY@1600 [facility]; Protocol Tramadol HCl (Ultram) 25 mg PO TID PRN PRN Reason: Pain, moderate (4-7) Last Admin: 07/10/18 13:05 Dose: 25 mg - Labs Labs: 07/12/18 07:34 07/12/18 07:34 PT 11.5 SECONDS (9.7-12.2) 07/05/18 06:40 INR 1.1 07/05/18 06:40 APTT 35 SECONDS (21-34) H 07/05/18 06:40 Assessment and Plan (1) Pleural effusion Status: Acute (2) ESRD (end stage renal disease) Status: Acute
--- NOTE | 2018-07-12 18:16 | CP.PCM.PN ---
Subjective - Date & Time of Evaluation Date of Evaluation: 07/12/18 Time of Evaluation: 18:14 - Subjective Subjective: S: Feels better. No SOB. No fever. Objective - Vital Signs/Intake and Output Vital Signs (last 24 hours): Temp Pulse Resp BP Pulse Ox 97.7 F 84 17 114/70 100 07/12/18 16:25 07/12/18 16:25 07/12/18 16:25 07/12/18 16:25 07/12/18 16:25 Intake and Output: 07/12/18 07/12/18 06:59 18:59 Intake Total 400 Balance 400 - Medications Medications: Current Medications Epoetin Milton (Procrit) 10,000 unit IV TTS [facility] Last Admin: 07/12/18 15:07 Dose: 10,000 unit Ethambutol HCl (Myambutol) 800 mg PO TTS [facility]; Protocol Heparin Sodium (Porcine) (Heparin (For Dialysis)) 3,700 units IVP TTS [facility] Stop: 07/26/18 23:00 Last Admin: 07/12/18 15:05 Dose: 3,700 units Hydromorphone HCl (Dilaudid) 0.5 mg IVP Q4H PRN PRN Reason: Pain, severe (8-10) Last Admin: 07/12/18 00:45 Dose: 0.5 mg Meropenem 500 mg/ Sodium (Chloride) 100 mls @ 100 mls/hr IVPB Q12H [facility]; Protocol Last Admin: 07/12/18 09:44 Dose: 100 mls/hr Propofol (Diprivan) 1,000 mg in 100 mls @ 1.309 mls/hr IV .Q24H PRN; Protocol PRN Reason: TITRATE PER MD ORDER Last Titration: 07/06/18 07:40 Dose: 0 mcg/kg/min, 0 mls/hr Isoniazid (Niazid) 300 mg PO DAILY@1600 [facility]; Protocol Last Admin: 07/12/18 18:03 Dose: 300 mg Metoprolol Succinate (Toprol Xl) 25 mg PO DAILY [facility] Last Admin: 07/12/18 09:11 Dose: 25 mg Ondansetron HCl (Zofran Inj) 4 mg IVP Q4 PRN PRN Reason: Nausea/Vomiting Pyrazinamide (Pyrazinamide) 1,000 mg PO TTS [facility]; Protocol Pyridoxine HCl (Vitamin B6 50 Mg Tab) 50 mg PO DAILY [facility] Last Admin: 07/12/18 09:11 Dose: 50 mg Rifampin (Rifampin) 450 mg PO DAILY@1600 [facility]; Protocol Last Admin: 07/12/18 18:04 Dose: 450 mg Tramadol HCl (Ultram) 25 mg PO TID PRN PRN Reason: Pain, moderate (4-7) Last Admin: 07/10/18 13:05 Dose: 25 mg - Labs Labs: 07/12/18 07:34 07/12/18 07:34 PT 11.5 SECONDS (9.7-12.2) 07/05/18 06:40 INR 1.1 07/05/18 06:40 APTT 35 SECONDS (21-34) H 07/05/18 06:40 - Constitutional Appears: Chronically Ill - Head Exam Head Exam: NORMAL INSPECTION - Eye Exam Eye Exam: Normal appearance - ENT Exam ENT Exam: Normal Exam - Neck Exam Neck Exam: Normal Inspection - Cardiovascular Exam Cardiovascular Exam: REGULAR RHYTHM - GI/Abdominal Exam GI & Abdominal Exam: Soft - Rectal Exam Rectal Exam: Deferred Assessment and Plan (1) Pleural effusion Status: Acute (2) Tachycardia Status: Acute (3) ESRD (end stage renal disease) on dialysis Status: Chronic (4) HTN (hypertension) Status: Chronic (5) Fever Status: Acute - Assessment and Plan (Free Text) Assessment: A/P: Pleural effusion positive for tuberculosis. Continue TB medications. Eager to go home
[2018-07-13] MEDS: Tramadol 25 mg PO PRN (00:11)
--- NOTE | 2018-07-13 08:16 | CP.PCM.PN ---
Subjective - Date & Time of Evaluation Date of Evaluation: 07/13/18 Time of Evaluation: 08:05 - Subjective Subjective: P no complain; No more cough, no CP, no n/v, no diarrhea, no CP Objective - Vital Signs/Intake and Output Vital Signs (last 24 hours): Temp Pulse Resp BP Pulse Ox 97.7 F 81 20 109/64 95 07/13/18 07:00 07/13/18 07:00 07/13/18 07:00 07/13/18 07:00 07/13/18 07:00 Intake and Output: 07/13/18 07/13/18 06:59 18:59 Intake Total 460 Balance 460 - Medications Medications: Current Medications Epoetin Milton (Procrit) 10,000 unit IV TTS [facility] Last Admin: 07/12/18 15:07 Dose: 10,000 unit Ethambutol HCl (Myambutol) 800 mg PO TTS [facility]; Protocol Heparin Sodium (Porcine) (Heparin (For Dialysis)) 3,700 units IVP TTS [facility] Stop: 07/26/18 23:00 Last Admin: 07/12/18 15:05 Dose: 3,700 units Hydromorphone HCl (Dilaudid) 0.5 mg IVP Q4H PRN PRN Reason: Pain, severe (8-10) Last Admin: 07/12/18 00:45 Dose: 0.5 mg Meropenem 500 mg/ Sodium (Chloride) 100 mls @ 100 mls/hr IVPB Q12H [facility]; Protocol Last Admin: 07/12/18 21:08 Dose: 100 mls/hr Propofol (Diprivan) 1,000 mg in 100 mls @ 1.309 mls/hr IV .Q24H PRN; Protocol PRN Reason: TITRATE PER MD ORDER Last Titration: 07/06/18 07:40 Dose: 0 mcg/kg/min, 0 mls/hr Isoniazid (Niazid) 300 mg PO DAILY@1600 [facility]; Protocol Last Admin: 07/12/18 18:03 Dose: 300 mg Metoprolol Succinate (Toprol Xl) 25 mg PO DAILY [facility] Last Admin: 07/12/18 09:11 Dose: 25 mg Ondansetron HCl (Zofran Inj) 4 mg IVP Q4 PRN PRN Reason: Nausea/Vomiting Pyrazinamide (Pyrazinamide) 1,000 mg PO TTS [facility]; Protocol Pyridoxine HCl (Vitamin B6 50 Mg Tab) 50 mg PO DAILY [facility] Last Admin: 07/12/18 09:11 Dose: 50 mg Rifampin (Rifampin) 450 mg PO DAILY@1600 [facility]; Protocol Last Admin: 07/12/18 18:04 Dose: 450 mg Sevelamer Carbonate (Renvela) 800 mg PO TIDCC CHARITY Last Admin: 07/12/18 18:37 Dose: 800 mg Tramadol HCl (Ultram) 25 mg PO TID PRN PRN Reason: Pain, moderate (4-7) Last Admin: 07/13/18 00:11 Dose: 25 mg - Labs Labs: 07/12/18 07:34 07/12/18 07:34 PT 11.5 SECONDS (9.7-12.2) 07/05/18 06:40 INR 1.1 07/05/18 06:40 APTT 35 SECONDS (21-34) H 07/05/18 06:40 - Constitutional Appears: No Acute Distress - Eye Exam Eye Exam: Normal appearance. absent: Periorbital tenderness - ENT Exam ENT Exam: Mucous Membranes Moist - Respiratory Exam Respiratory Exam: Decreased Breath Sounds. absent: Rales, Rhonchi, Wheezes - GI/Abdominal Exam GI & Abdominal Exam: Soft. absent: Tenderness - Extremities Exam Extremities Exam: Full ROM, Normal Capillary Refill, Pedal Edema. 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
[2018-07-13] MEDS: Meropenem 500 MG in Sodium Chloride 0.9% 100 ML IVPB SCH (09:26)
[2018-07-13] MEDS: Metoprolol Succinate 25 mg XL Tab PO SCH (09:26)
--- NOTE | 2018-07-13 14:18 | CP.PCM.PN ---
Subjective - Date & Time of Evaluation Date of Evaluation: 07/13/18 Time of Evaluation: 14:18 - Subjective Subjective: Pulmonary follow up, Covering Dr Allen The Patient was seen and examined at the bedside, Medical records reviewed, and management issues were discussed and formulated with the house staff. 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 Awake, comfortable, NAD Afebrile Patient management was discussed with Ivanna at the TB clinic [phone] Patient on respiratory isolation Pleural fluid positive for AFB. Will get 3 consecutive AFB sputum smear and culture Pt need 3 consecutive negative specimens Patient will need sputum induction since she is not coughing and was ordered 3's basement ordered one for now second tomorrow morning and the third tomorrow evening and hopefully if the all negative patient can be discharged on Wednesday Tuberculosis effusion - Continue anti-TB meds - Continue hemodialysis Objective - Vital Signs/Intake and Output Vital Signs (last 24 hours): Temp Pulse Resp BP Pulse Ox 97.7 F 81 20 109/64 95 07/13/18 07:00 07/13/18 07:00 07/13/18 07:00 07/13/18 07:00 07/13/18 07:00 Intake and Output: 07/13/18 07/13/18 06:59 18:59 Intake Total 460 Balance 460 - Medications Medications: Current Medications Epoetin Milton (Procrit) 10,000 unit IV TTS [facility] Last Admin: 07/12/18 15:07 Dose: 10,000 unit Ethambutol HCl (Myambutol) 800 mg PO TTS [facility]; Protocol Heparin Sodium (Porcine) (Heparin (For Dialysis)) 3,700 units IVP TTS [facility] Stop: 07/26/18 23:00 Last Admin: 07/12/18 15:05 Dose: 3,700 units Hydromorphone HCl (Dilaudid) 0.5 mg IVP Q4H PRN PRN Reason: Pain, severe (8-10) Last Admin: 07/12/18 00:45 Dose: 0.5 mg Meropenem 500 mg/ Sodium (Chloride) 100 mls @ 100 mls/hr IVPB Q12H [facility]; Protocol Last Admin: 07/13/18 09:26 Dose: 100 mls/hr Propofol (Diprivan) 1,000 mg in 100 mls @ 1.309 mls/hr IV .Q24H PRN; Protocol PRN Reason: TITRATE PER MD ORDER Last Titration: 07/06/18 07:40 Dose: 0 mcg/kg/min, 0 mls/hr Isoniazid (Niazid) 300 mg PO DAILY@1600 [facility]; Protocol Last Admin: 07/12/18 18:03 Dose: 300 mg Metoprolol Succinate (Toprol Xl) 25 mg PO DAILY [facility] Last Admin: 07/13/18 09:26 Dose: 25 mg Ondansetron HCl (Zofran Inj) 4 mg IVP Q4 PRN PRN Reason: Nausea/Vomiting Pyrazinamide (Pyrazinamide) 1,000 mg PO TTS [facility]; Protocol Pyridoxine HCl (Vitamin B6 50 Mg Tab) 50 mg PO DAILY [facility] Last Admin: 07/13/18 09:26 Dose: 50 mg Rifampin (Rifampin) 450 mg PO DAILY@1600 [facility]; Protocol Last Admin: 07/12/18 18:04 Dose: 450 mg Sevelamer Carbonate (Renvela) 800 mg PO TIDCC [facility] Last Admin: 07/13/18 11:59 Dose: 800 mg Tramadol HCl (Ultram) 25 mg PO TID PRN PRN Reason: Pain, moderate (4-7) Last Admin: 07/13/18 00:11 Dose: 25 mg - Labs Labs: 07/12/18 07:34 07/12/18 07:34 PT 11.5 SECONDS (9.7-12.2) 07/05/18 06:40 INR 1.1 07/05/18 06:40 APTT 35 SECONDS (21-34) H 07/05/18 06:40 - Constitutional Appears: Well, Non-toxic, No Acute Distress - Head Exam Head Exam: ATRAUMATIC, NORMAL INSPECTION, NORMOCEPHALIC - ENT Exam ENT Exam: Mucous Membranes Dry - Neck Exam Neck Exam: Full ROM, Normal Inspection - Respiratory Exam Respiratory Exam: Decreased Breath Sounds, Rhonchi, NORMAL BREATHING PATTERN. absent: Accessory Muscle Use, Chest Wall Tenderness, Rales, Wheezes - Cardiovascular Exam Cardiovascular Exam: REGULAR RHYTHM, +S1, +S2. absent: Murmur - GI/Abdominal Exam GI & Abdominal Exam: Soft, Normal Bowel Sounds. absent: Tenderness Assessment and Plan (1) Tuberculosis, primary, pleurisy, histologic diagnosis Status: Acute (2) ESRD (end stage renal disease) Status: Acute (3) Fever Status: Acute (4) Pleural effusion Status: Acute (5) SOB (shortness of breath) Status: Acute (6) Tuberculosis of pleura Status: Acute
--- NOTE | 2018-07-13 14:30 | CP.PCM.PN ---
Subjective - Date & Time of Evaluation Date of Evaluation: 07/13/18 Time of Evaluation: 14:28 - Subjective Subjective: feels better no cough; no new complaint on anti TB regimen for dialysis in AM Objective - Vital Signs/Intake and Output Vital Signs (last 24 hours): Temp Pulse Resp BP Pulse Ox 97.7 F 81 20 109/64 95 07/13/18 07:00 07/13/18 07:00 07/13/18 07:00 07/13/18 07:00 07/13/18 07:00 Intake and Output: 07/13/18 07/13/18 06:59 18:59 Intake Total 460 Balance 460 - Medications Medications: Current Medications Epoetin Milton (Procrit) 10,000 unit IV TTS [facility] Last Admin: 07/12/18 15:07 Dose: 10,000 unit Ethambutol HCl (Myambutol) 800 mg PO TTS [facility]; Protocol Heparin Sodium (Porcine) (Heparin (For Dialysis)) 3,700 units IVP TTS [facility] Stop: 07/26/18 23:00 Last Admin: 07/12/18 15:05 Dose: 3,700 units Hydromorphone HCl (Dilaudid) 0.5 mg IVP Q4H PRN PRN Reason: Pain, severe (8-10) Last Admin: 07/12/18 00:45 Dose: 0.5 mg Meropenem 500 mg/ Sodium (Chloride) 100 mls @ 100 mls/hr IVPB Q12H [facility]; Protocol Last Admin: 07/13/18 09:26 Dose: 100 mls/hr Propofol (Diprivan) 1,000 mg in 100 mls @ 1.309 mls/hr IV .Q24H [facility]; Protocol PRN Reason: TITRATE PER MD ORDER Last Titration: 07/06/18 07:40 Dose: 0 mcg/kg/min, 0 mls/hr Isoniazid (Niazid) 300 mg PO DAILY@1600 [facility]; Protocol Last Admin: 07/12/18 18:03 Dose: 300 mg Metoprolol Succinate (Toprol Xl) 25 mg PO DAILY [facility] Last Admin: 07/13/18 09:26 Dose: 25 mg Ondansetron HCl (Zofran Inj) 4 mg IVP Q4 PRN PRN Reason: Nausea/Vomiting Pyrazinamide (Pyrazinamide) 1,000 mg PO TTS [facility]; Protocol Pyridoxine HCl (Vitamin B6 50 Mg Tab) 50 mg PO DAILY [facility] Last Admin: 07/13/18 09:26 Dose: 50 mg Rifampin (Rifampin) 450 mg PO DAILY@1600 [facility]; Protocol Last Admin: 07/12/18 18:04 Dose: 450 mg Sevelamer Carbonate (Renvela) 800 mg PO TIDCC [facility] Last Admin: 07/13/18 11:59 Dose: 800 mg Tramadol HCl (Ultram) 25 mg PO TID PRN PRN Reason: Pain, moderate (4-7) Last Admin: 07/13/18 00:11 Dose: 25 mg - Labs Labs: 07/12/18 07:34 07/12/18 07:34 PT 11.5 SECONDS (9.7-12.2) 07/05/18 06:40 INR 1.1 07/05/18 06:40 APTT 35 SECONDS (21-34) H 07/05/18 06:40 - Constitutional Appears: No Acute Distress, Chronically Ill - Head Exam Head Exam: ATRAUMATIC, NORMAL INSPECTION - Eye Exam Eye Exam: EOMI, Normal appearance - Neck Exam Neck Exam: Normal Inspection. absent: Tenderness - Respiratory Exam Respiratory Exam: Clear to Ausculation Bilateral, NORMAL BREATHING PATTERN - Cardiovascular Exam Cardiovascular Exam: REGULAR RHYTHM, +S1 - Extremities Exam Extremities Exam: Normal Inspection. absent: Tenderness - Neurological Exam Neurological Exam: Awake, CN II-XII Intact - Skin Skin Exam: Dry, Warm Assessment and Plan (1) ESRD (end stage renal disease) Status: Acute (2) Fever Status: Acute (3) HTN (hypertension) Status: Chronic (4) IgA nephropathy Status: Acute (5) Pneumonia Status: Acute - Assessment and Plan (Free Text) Plan: dialysis TTS recheck labs
--- NOTE | 2018-07-13 18:59 | CP.PCM.PN ---
Subjective - Date & Time of Evaluation Date of Evaluation: 07/13/18 Time of Evaluation: 10:00 - Subjective Subjective: afeb on RIPE Rx + pleurisy / TB Objective - Vital Signs/Intake and Output Vital Signs (last 24 hours): Temp Pulse Resp BP Pulse Ox 97.8 F 79 18 123/63 100 07/13/18 15:00 07/13/18 15:00 07/13/18 15:00 07/13/18 15:00 07/13/18 15:00 Intake and Output: 07/13/18 07/13/18 06:59 18:59 Intake Total 460 100 Balance 460 100 - Medications Medications: Current Medications Acetylcysteine (Acetylcysteine 20%) 4 ml INH RQ6 [facility] Albuterol/Ipratropium (Duoneb 3 Mg/0.5 Mg (3 Ml) Ud) 3 ml INH RQ6 [facility] Epoetin Milton (Procrit) 10,000 unit IV TTS [facility] Last Admin: 07/12/18 15:07 Dose: 10,000 unit Ethambutol HCl (Myambutol) 800 mg PO TTS [facility]; Protocol Heparin Sodium (Porcine) (Heparin (For Dialysis)) 3,700 units IVP TTS [facility] Stop: 07/26/18 23:00 Last Admin: 07/12/18 15:05 Dose: 3,700 units Hydromorphone HCl (Dilaudid) 0.5 mg IVP Q4H PRN PRN Reason: Pain, severe (8-10) Last Admin: 07/12/18 00:45 Dose: 0.5 mg Propofol (Diprivan) 1,000 mg in 100 mls @ 1.309 mls/hr IV .Q24H [facility]; Protocol PRN Reason: TITRATE PER MD ORDER Last Titration: 07/06/18 07:40 Dose: 0 mcg/kg/min, 0 mls/hr Isoniazid (Niazid) 300 mg PO DAILY@1600 [facility]; Protocol Last Admin: 07/13/18 16:44 Dose: 300 mg Metoprolol Succinate (Toprol Xl) 25 mg PO DAILY [facility] Last Admin: 07/13/18 09:26 Dose: 25 mg Ondansetron HCl (Zofran Inj) 4 mg IVP Q4 PRN PRN Reason: Nausea/Vomiting Pyrazinamide (Pyrazinamide) 1,000 mg PO TTS [facility]; Protocol Pyridoxine HCl (Vitamin B6 50 Mg Tab) 50 mg PO DAILY [facility] Last Admin: 07/13/18 09:26 Dose: 50 mg Rifampin (Rifampin) 450 mg PO DAILY@1600 [facility]; Protocol Last Admin: 07/13/18 17:00 Dose: 450 mg Sevelamer Carbonate (Renvela) 800 mg PO TIDCC [facility] Last Admin: 07/13/18 17:09 Dose: 800 mg Tramadol HCl (Ultram) 25 mg PO TID PRN PRN Reason: Pain, moderate (4-7) Last Admin: 07/13/18 00:11 Dose: 25 mg - Labs Labs: 07/12/18 07:34 07/12/18 07:34 PT 11.5 SECONDS (9.7-12.2) 07/05/18 06:40 INR 1.1 07/05/18 06:40 APTT 35 SECONDS (21-34) H 07/05/18 06:40 - Constitutional Appears: Well - Head Exam Head Exam: ATRAUMATIC, NORMAL INSPECTION, NORMOCEPHALIC - Eye Exam Eye Exam: EOMI, Normal appearance, PERRL Pupil Exam: NORMAL ACCOMODATION, PERRL - ENT Exam ENT Exam: Mucous Membranes Moist, Normal Exam - Neck Exam Neck Exam: Full ROM, Normal Inspection. absent: Lymphadenopathy - Respiratory Exam Respiratory Exam: Clear to Ausculation Bilateral, NORMAL BREATHING PATTERN - Cardiovascular Exam Cardiovascular Exam: REGULAR RHYTHM, +S1, +S2. absent: Murmur - GI/Abdominal Exam GI & Abdominal Exam: Soft, Normal Bowel Sounds. absent: Tenderness - Rectal Exam Rectal Exam: Deferred - Exam Exam: NORMAL INSPECTION - Extremities Exam Extremities Exam: Full ROM, Normal Capillary Refill, Normal Inspection. absent: Joint Swelling, Pedal Edema - Back Exam Back Exam: NORMAL INSPECTION - Neurological Exam Neurological Exam: Alert, Awake, CN II-XII Intact, Normal Gait, Oriented x3 - Psychiatric Exam Psychiatric exam: Normal Affect, Normal Mood - Skin Skin Exam: Dry, Intact, Normal Color, Warm Assessment and Plan (1) ESRD (end stage renal disease) Status: Acute (2) Pleural effusion Status: Acute (3) Fever Status: Acute (4) Hypertensive chronic kidney disease with stage 5 chronic kidney disease or end stage renal disease Status: Acute (5) Pneumonia Status: Acute (6) ESRD (end stage renal disease) on dialysis Status: Chronic - Assessment and Plan (Free Text) Assessment: await AFB sputum d/c on PO rx follow up in clinic
[2018-07-13] MEDS: Acetylcysteine 20% Inhal Soln (4ml) INH SCH ×2 (19:11→19:12)
[2018-07-13] MEDS: Albuterol-Ipratrop 3 mg / 0.5 (3 ml) UD INH SCH (19:12)
[2018-07-13] MEDS ORDERED: Albuterol-Ipratrop 3 mg / 0.5 (3 ml) UD INH SCH (20:00)
[2018-07-14] MEDS: Acetylcysteine 20% Inhal Soln (4ml) INH SCH ×4 (01:22→19:31)
[2018-07-14] MEDS: Albuterol-Ipratrop 3 mg / 0.5 (3 ml) UD INH SCH ×4 (01:22→19:31)
[2018-07-14 07:32] LABS: MEAN CELL VOLUME 102.1 fL (81.0-99.0); MEAN CORPUSCULAR HEMOGLOBIN 32.7 pg (27.0-31.0); MEAN PLATELET VOLUME 8.8 fL (7.2-11.7); RBC 2.75 Mil/uL (3.80-5.20); RED CELL DISTRIBUTION WIDTH 19.3 % (11.5-14.5); WHITE BLOOD COUNT 3.6 K/uL (4.8-10.8)
[2018-07-14 08:01] LABS: ALB/GLOB RATIO 0.7 (1.0-2.1); CALCIUM 8.9 mg/dl (8.6-10.4)
[2018-07-14] MEDS: Metoprolol Succinate 25 mg XL Tab PO SCH (09:04)
--- NOTE | 2018-07-14 09:54 | CP.PCM.PN ---
Subjective - Date & Time of Evaluation Date of Evaluation: 07/14/18 Time of Evaluation: 09:53 - Subjective Subjective: seen on dialysis on treatment for TP pleurisy to UF 1500ml feels much better no new complaint Objective - Vital Signs/Intake and Output Vital Signs (last 24 hours): Temp Pulse Resp BP Pulse Ox 97.7 F 82 20 132/77 100 07/14/18 08:53 07/14/18 08:53 07/14/18 08:53 07/14/18 08:53 07/14/18 08:53 - Medications Medications: Current Medications Acetylcysteine (Acetylcysteine 20%) 4 ml INH RQ6 [facility] Last Admin: 07/14/18 07:38 Dose: 4 ml Albuterol/Ipratropium (Duoneb 3 Mg/0.5 Mg (3 Ml) Ud) 3 ml INH RQ6 [facility] Last Admin: 07/14/18 07:38 Dose: 3 ml Epoetin Milton (Procrit) 10,000 unit IV TTS [facility] Last Admin: 07/12/18 15:07 Dose: 10,000 unit Ethambutol HCl (Myambutol) 800 mg PO TTS [facility]; Protocol Heparin Sodium (Porcine) (Heparin (For Dialysis)) 3,700 units IVP TTS [facility] Stop: 07/26/18 23:00 Last Admin: 07/12/18 15:05 Dose: 3,700 units Hydromorphone HCl (Dilaudid) 0.5 mg IVP Q4H PRN PRN Reason: Pain, severe (8-10) Last Admin: 07/12/18 00:45 Dose: 0.5 mg Propofol (Diprivan) 1,000 mg in 100 mls @ 1.309 mls/hr IV .Q24H PRN; Protocol PRN Reason: TITRATE PER MD ORDER Last Titration: 07/06/18 07:40 Dose: 0 mcg/kg/min, 0 mls/hr Isoniazid (Niazid) 300 mg PO DAILY@1600 [facility]; Protocol Last Admin: 07/13/18 16:44 Dose: 300 mg Metoprolol Succinate (Toprol Xl) 25 mg PO DAILY [facility] Last Admin: 07/14/18 09:04 Dose: Not Given Ondansetron HCl (Zofran Inj) 4 mg IVP Q4 PRN PRN Reason: Nausea/Vomiting Pyrazinamide (Pyrazinamide) 1,000 mg PO TTS [facility]; Protocol Pyridoxine HCl (Vitamin B6 50 Mg Tab) 50 mg PO DAILY [facility] Last Admin: 07/13/18 09:26 Dose: 50 mg Rifampin (Rifampin) 450 mg PO DAILY@1600 [facility]; Protocol Last Admin: 07/13/18 17:00 Dose: 450 mg Sevelamer Carbonate (Renvela) 800 mg PO TIDCC [facility] Last Admin: 07/14/18 08:20 Dose: 800 mg Tramadol HCl (Ultram) 25 mg PO TID PRN PRN Reason: Pain, moderate (4-7) Last Admin: 07/13/18 00:11 Dose: 25 mg - Labs Labs: 07/14/18 07:05 07/14/18 07:05 PT 11.5 SECONDS (9.7-12.2) 07/05/18 06:40 INR 1.1 07/05/18 06:40 APTT 35 SECONDS (21-34) H 07/05/18 06:40 - Constitutional Appears: No Acute Distress, Chronically Ill - Head Exam Head Exam: ATRAUMATIC, NORMAL INSPECTION - Eye Exam Eye Exam: EOMI, Normal appearance - Neck Exam Neck Exam: Normal Inspection. absent: Tenderness - Respiratory Exam Respiratory Exam: Clear to Ausculation Bilateral, NORMAL BREATHING PATTERN - Cardiovascular Exam Cardiovascular Exam: REGULAR RHYTHM, +S1 - GI/Abdominal Exam GI & Abdominal Exam: Soft. absent: Tenderness - Extremities Exam Extremities Exam: Normal Inspection. absent: Tenderness - Neurological Exam Neurological Exam: Alert, CN II-XII Intact - Skin Skin Exam: Dry, Warm Assessment and Plan (1) ESRD (end stage renal disease) Status: Acute (2) Fever Status: Acute (3) HTN (hypertension) Status: Chronic (4) IgA nephropathy Status: Acute (5) Pneumonia Status: Acute - Assessment and Plan (Free Text) Plan: dialysis TTS UF 1500ml today
[2018-07-14] MEDS: Epoetin Alfa 10,000 unit/ml Dialysis IV SCH (10:57)
[2018-07-14] MEDS: Sodium Chloride Nasal 0.65% Soln (30ml) NAS SCH (17:00)
--- NOTE | 2018-07-14 17:33 | CP.PCM.PN ---
Subjective - Date & Time of Evaluation Date of Evaluation: 07/14/18 Time of Evaluation: 17:32 - Subjective Subjective: Pulmonary follow up, Covering Dr Allen The Patient was seen and examined at the bedside, Medical records reviewed, and management issues were discussed and formulated with the house staff. 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 Awake, comfortable, NAD Afebrile Patient management was discussed with Ivanna at the TB clinic [phone] Patient on respiratory isolation Pleural fluid positive for AFB. Will get 3 consecutive AFB sputum smear and culture Pt need 3 consecutive negative specimens Patient will need sputum induction since she is not coughing and was ordered 3's basement ordered one for now second tomorrow morning and the third tomorrow evening and hopefully if the all negative patient can be discharged on Wednesday Tuberculosis effusion - Continue anti-TB meds - Continue hemodialysis Objective - Vital Signs/Intake and Output Vital Signs (last 24 hours): Temp Pulse Resp BP Pulse Ox 98 F 86 20 134/68 100 07/14/18 15:00 07/14/18 15:00 07/14/18 15:00 07/14/18 15:00 07/14/18 15:00 Intake and Output: 07/14/18 07/14/18 06:59 18:59 Intake Total 350 Balance 350 - Medications Medications: Current Medications Acetylcysteine (Acetylcysteine 20%) 4 ml INH RQ6 [facility] Last Admin: 07/14/18 13:10 Dose: Not Given Albuterol/Ipratropium (Duoneb 3 Mg/0.5 Mg (3 Ml) Ud) 3 ml INH RQ6 [facility] Last Admin: 07/14/18 13:10 Dose: Not Given Epoetin Milton (Procrit) 10,000 unit IV TTS [facility] Last Admin: 07/14/18 10:57 Dose: 10,000 unit Ethambutol HCl (Myambutol) 800 mg PO TTS [facility]; Protocol Last Admin: 07/14/18 17:00 Dose: 800 mg Heparin Sodium (Porcine) (Heparin (For Dialysis)) 3,700 units IVP TTS [facility] Stop: 07/26/18 23:00 Last Admin: 07/14/18 10:59 Dose: 3,700 units Hydromorphone HCl (Dilaudid) 0.5 mg IVP Q4H PRN PRN Reason: Pain, severe (8-10) Last Admin: 07/12/18 00:45 Dose: 0.5 mg Propofol (Diprivan) 1,000 mg in 100 mls @ 1.309 mls/hr IV .Q24H [facility]; Protocol PRN Reason: TITRATE PER MD ORDER Last Titration: 07/06/18 07:40 Dose: 0 mcg/kg/min, 0 mls/hr Isoniazid (Niazid) 300 mg PO DAILY@1600 [facility]; Protocol Last Admin: 07/14/18 17:00 Dose: 300 mg Metoprolol Succinate (Toprol Xl) 25 mg PO DAILY [facility] Last Admin: 07/14/18 09:04 Dose: Not Given Ondansetron HCl (Zofran Inj) 4 mg IVP Q4 PRN PRN Reason: Nausea/Vomiting Pyrazinamide (Pyrazinamide) 1,000 mg PO TTS [facility]; Protocol Last Admin: 07/14/18 17:00 Dose: 1,000 mg Pyridoxine HCl (Vitamin B6 50 Mg Tab) 50 mg PO DAILY [facility] Last Admin: 07/14/18 13:44 Dose: 50 mg Rifampin (Rifampin) 450 mg PO DAILY@1600 [facility]; Protocol Last Admin: 07/14/18 17:00 Dose: 450 mg Sevelamer Carbonate (Renvela) 800 mg PO TIDCC [facility] Last Admin: 07/14/18 17:19 Dose: 800 mg Sodium Chloride ([place] Baby Saline 30 Ml) 0 ml JORDANA Q8H [facility] Stop: 07/15/18 08:46 Tramadol HCl (Ultram) 25 mg PO TID PRN PRN Reason: Pain, moderate (4-7) Last Admin: 07/13/18 00:11 Dose: 25 mg - Labs Labs: 07/14/18 07:05 07/14/18 07:05 PT 11.5 SECONDS (9.7-12.2) 07/05/18 06:40 INR 1.1 07/05/18 06:40 APTT 35 SECONDS (21-34) H 07/05/18 06:40 - Constitutional Appears: Well, Non-toxic, Toxic - Head Exam Head Exam: ATRAUMATIC, NORMAL INSPECTION, NORMOCEPHALIC - Eye Exam Eye Exam: EOMI, Normal appearance Pupil Exam: NORMAL ACCOMODATION - ENT Exam ENT Exam: Mucous Membranes Moist, Normal Exam - Neck Exam Neck Exam: Full ROM, Normal Inspection - Respiratory Exam Respiratory Exam: Chest Wall Tenderness, Decreased Breath Sounds, Prolonged Expiratory Phase, Rhonchi. absent: Accessory Muscle Use, Clear to Ausculation Bilateral, Rales, Wheezes - Cardiovascular Exam Cardiovascular Exam: REGULAR RHYTHM, +S1, +S2. absent: Murmur - GI/Abdominal Exam GI & Abdominal Exam: Soft, Normal Bowel Sounds. absent: Tenderness Assessment and Plan (1) Tuberculosis, primary, pleurisy, histologic diagnosis Status: Acute (2) ESRD (end stage renal disease) Status: Acute (3) Fever Status: Acute (4) Pleural effusion Status: Acute (5) SOB (shortness of breath) Status: Acute (6) Tuberculosis of pleura Status: Acute
--- NOTE | 2018-07-14 17:57 | CP.PCM.PN ---
Subjective - Date & Time of Evaluation Date of Evaluation: 07/14/18 Time of Evaluation: 17:55 - Subjective Subjective: S: Feels beter. No fever. No cough. Eager to go home. Objective - Vital Signs/Intake and Output Vital Signs (last 24 hours): Temp Pulse Resp BP Pulse Ox 98 F 86 20 134/68 100 07/14/18 15:00 07/14/18 15:00 07/14/18 15:00 07/14/18 15:00 07/14/18 15:00 Intake and Output: 07/14/18 07/14/18 06:59 18:59 Intake Total 350 Balance 350 - Medications Medications: Current Medications Acetylcysteine (Acetylcysteine 20%) 4 ml INH RQ6 [facility] Last Admin: 07/14/18 13:10 Dose: Not Given Albuterol/Ipratropium (Duoneb 3 Mg/0.5 Mg (3 Ml) Ud) 3 ml INH RQ6 [facility] Last Admin: 07/14/18 13:10 Dose: Not Given Epoetin Milton (Procrit) 10,000 unit IV TTS [facility] Last Admin: 07/14/18 10:57 Dose: 10,000 unit Ethambutol HCl (Myambutol) 800 mg PO TTS [facility]; Protocol Last Admin: 07/14/18 17:00 Dose: 800 mg Heparin Sodium (Porcine) (Heparin (For Dialysis)) 3,700 units IVP TTS [facility] Stop: 07/26/18 23:00 Last Admin: 07/14/18 10:59 Dose: 3,700 units Hydromorphone HCl (Dilaudid) 0.5 mg IVP Q4H PRN PRN Reason: Pain, severe (8-10) Last Admin: 07/12/18 00:45 Dose: 0.5 mg Propofol (Diprivan) 1,000 mg in 100 mls @ 1.309 mls/hr IV .Q24H PRN; Protocol PRN Reason: TITRATE PER MD ORDER Last Titration: 07/06/18 07:40 Dose: 0 mcg/kg/min, 0 mls/hr Isoniazid (Niazid) 300 mg PO DAILY@1600 [facility]; Protocol Last Admin: 07/14/18 17:00 Dose: 300 mg Metoprolol Succinate (Toprol Xl) 25 mg PO DAILY [facility] Last Admin: 07/14/18 09:04 Dose: Not Given Ondansetron HCl (Zofran Inj) 4 mg IVP Q4 PRN PRN Reason: Nausea/Vomiting Pyrazinamide (Pyrazinamide) 1,000 mg PO TTS [facility]; Protocol Last Admin: 07/14/18 17:00 Dose: 1,000 mg Pyridoxine HCl (Vitamin B6 50 Mg Tab) 50 mg PO DAILY [facility] Last Admin: 07/14/18 13:44 Dose: 50 mg Rifampin (Rifampin) 450 mg PO DAILY@1600 [facility]; Protocol Last Admin: 07/14/18 17:00 Dose: 450 mg Sevelamer Carbonate (Renvela) 800 mg PO TIDCC [facility] Last Admin: 07/14/18 17:19 Dose: 800 mg Sodium Chloride ([place] Baby Saline 30 Ml) 0 ml JORDANA Q8H [facility] Stop: 07/15/18 08:46 Last Admin: 07/14/18 17:00 Dose: 1 spr Tramadol HCl (Ultram) 25 mg PO TID PRN PRN Reason: Pain, moderate (4-7) Last Admin: 07/13/18 00:11 Dose: 25 mg - Labs Labs: 07/14/18 07:05 07/14/18 07:05 PT 11.5 SECONDS (9.7-12.2) 07/05/18 06:40 INR 1.1 07/05/18 06:40 APTT 35 SECONDS (21-34) H 07/05/18 06:40 - Constitutional Appears: Chronically Ill - Head Exam Head Exam: NORMAL INSPECTION - Eye Exam Eye Exam: Normal appearance - ENT Exam ENT Exam: Normal Exam - Neck Exam Neck Exam: Normal Inspection - Respiratory Exam Respiratory Exam: NORMAL BREATHING PATTERN - Cardiovascular Exam Cardiovascular Exam: REGULAR RHYTHM - GI/Abdominal Exam GI & Abdominal Exam: Soft - Rectal Exam Rectal Exam: Deferred Assessment and Plan (1) Pleural effusion Status: Acute (2) Tachycardia Status: Acute (3) ESRD (end stage renal disease) on dialysis Status: Chronic (4) HTN (hypertension) Status: Chronic (5) Fever Status: Acute (6) Tuberculosis of pleura Status: Acute - Assessment and Plan (Free Text) Assessment: A/P: Continue tuberculosis medications. Pssible sicarge tomorrow
[2018-07-15] MEDS: Sodium Chloride Nasal 0.65% Soln (30ml) NAS SCH ×2 (00:57→08:42)
[2018-07-15] MEDS: Acetylcysteine 20% Inhal Soln (4ml) INH SCH ×3 (01:17→13:37)
[2018-07-15] MEDS: Albuterol-Ipratrop 3 mg / 0.5 (3 ml) UD INH SCH ×3 (01:17→13:37)
--- NOTE | 2018-07-15 08:16 | CP.PCM.PN ---
Subjective - Date & Time of Evaluation Date of Evaluation: 07/15/18 Time of Evaluation: 08:00 - Subjective Subjective: Pt no complain; Want to go home No sputum despite induction. No cough, no CP, no SOB, no n/v, no diarrhea, no fever Walks around the room Objective - Vital Signs/Intake and Output Vital Signs (last 24 hours): Temp Pulse Resp BP Pulse Ox 98.1 F 83 20 121/67 100 07/15/18 07:00 07/15/18 07:00 07/15/18 07:00 07/15/18 07:00 07/15/18 07:00 - Medications Medications: Current Medications Acetylcysteine (Acetylcysteine 20%) 4 ml INH RQ6 [facility] Last Admin: 07/15/18 01:17 Dose: 4 ml Albuterol/Ipratropium (Duoneb 3 Mg/0.5 Mg (3 Ml) Ud) 3 ml INH RQ6 [facility] Last Admin: 07/15/18 01:17 Dose: 3 ml Epoetin Milton (Procrit) 10,000 unit IV TTS [facility] Last Admin: 07/14/18 10:57 Dose: 10,000 unit Ethambutol HCl (Myambutol) 800 mg PO TTS [facility]; Protocol Last Admin: 07/14/18 17:00 Dose: 800 mg Heparin Sodium (Porcine) (Heparin (For Dialysis)) 3,700 units IVP TTS [facility] Stop: 07/26/18 23:00 Last Admin: 07/14/18 10:59 Dose: 3,700 units Hydromorphone HCl (Dilaudid) 0.5 mg IVP Q4H PRN PRN Reason: Pain, severe (8-10) Last Admin: 07/12/18 00:45 Dose: 0.5 mg Propofol (Diprivan) 1,000 mg in 100 mls @ 1.309 mls/hr IV .Q24H PRN; Protocol PRN Reason: TITRATE PER MD ORDER Last Titration: 07/06/18 07:40 Dose: 0 mcg/kg/min, 0 mls/hr Isoniazid (Niazid) 300 mg PO DAILY@1600 [facility]; Protocol Last Admin: 07/14/18 17:00 Dose: 300 mg Metoprolol Succinate (Toprol Xl) 25 mg PO DAILY [facility] Last Admin: 03/07/19 09:04 Dose: Not Given Ondansetron HCl (Zofran Inj) 4 mg IVP Q4 PRN PRN Reason: Nausea/Vomiting Pyrazinamide (Pyrazinamide) 1,000 mg PO TTS [facility]; Protocol Last Admin: 07/14/18 17:00 Dose: 1,000 mg Pyridoxine HCl (Vitamin B6 50 Mg Tab) 50 mg PO DAILY [facility] Last Admin: 07/14/18 13:44 Dose: 50 mg Rifampin (Rifampin) 450 mg PO DAILY@1600 [facility]; Protocol Last Admin: 07/14/18 17:00 Dose: 450 mg Sevelamer Carbonate (Renvela) 800 mg PO TIDCC [facility] Last Admin: 07/14/18 17:19 Dose: 800 mg Sodium Chloride (Erwin Baby Saline 30 Ml) 0 ml JORDANA Q8H [facility] Stop: 07/15/18 08:46 Last Admin: 07/15/18 00:57 Dose: 1 spr Tramadol HCl (Ultram) 25 mg PO TID PRN PRN Reason: Pain, moderate (4-7) Last Admin: 07/13/18 00:11 Dose: 25 mg - Labs Labs: 07/14/18 07:05 07/14/18 07:05 PT 11.5 SECONDS (9.7-12.2) 07/05/18 06:40 INR 1.1 07/05/18 06:40 APTT 35 SECONDS (21-34) H 07/05/18 06:40 - Constitutional Appears: No Acute Distress - Eye Exam Eye Exam: Normal appearance - ENT Exam ENT Exam: Mucous Membranes Moist - Neck Exam Neck Exam: Full ROM. absent: Lymphadenopathy, Normal Inspection - Respiratory Exam Respiratory Exam: Decreased Breath Sounds. absent: Rales, Rhonchi, Wheezes - Cardiovascular Exam Cardiovascular Exam: REGULAR RHYTHM, +S1, +S2. absent: Gallop, JVD - GI/Abdominal Exam GI & Abdominal Exam: absent: Tenderness, Normal Bowel Sounds - Extremities Exam Extremities Exam: Full ROM, Normal Capillary Refill. absent: Calf Tenderness, Joint Swelling, Pedal Edema Assessment and Plan - Assessment and Plan (Free Text) Assessment: [place]/ Large effusion - TB; ESRD Cont antiTB/ IV antibx will discharge if clear c/o CT and [facility]
[2018-07-15] MEDS: Metoprolol Succinate 25 mg XL Tab PO SCH (10:37)
--- NOTE | 2018-07-15 11:36 | RAD ---
Date of service: 07/15/2018 HISTORY: r/o tb COMPARISON: 07/09/2018 TECHNIQUE: Chest PA and lateral FINDINGS: LUNGS: No definite infiltrate. PLEURA: Small bilateral pleural effusion unchanged from prior examination. No pneumothorax. CARDIOVASCULAR: No aortic atherosclerotic calcification present. Normal cardiac size. Right tunneled central venous dialysis catheter. OSSEOUS STRUCTURES: No significant abnormalities. VISUALIZED UPPER ABDOMEN: Normal. OTHER FINDINGS: None. IMPRESSION: Small bilateral pleural effusion.
--- NOTE | 2018-07-15 13:02 | CP.PCM.PN ---
Subjective - Date & Time of Evaluation Date of Evaluation: 07/15/18 Time of Evaluation: 13:02 - Subjective Subjective: Pulmonary follow up, Covering Dr Allen The Patient was seen and examined at the bedside, Medical records reviewed, and management issues were discussed and formulated with the house staff. 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 Awake, comfortable, NAD Afebrile Patient management was discussed with Ivanna at the TB clinic [phone] Patient on respiratory isolation Pleural fluid positive for AFB. Will get 3 consecutive AFB sputum smear and culture Patient will need sputum induction since she is not coughing and was ordered 3's basement ordered one for now second tomorrow morning and the third tomorrow evening and hopefully if the all negative patient can be discharged on Wednesday Tuberculosis effusion - Continue anti-TB meds - Continue hemodialysis - Pt need 3 consecutive negative specimens before respiratory isolation could be discontinued Objective - Vital Signs/Intake and Output Vital Signs (last 24 hours): Temp Pulse Resp BP Pulse Ox 98.1 F 83 20 121/67 100 07/15/18 07:00 07/15/18 07:00 07/15/18 07:00 07/15/18 07:00 07/15/18 07:00 - Medications Medications: Current Medications Acetylcysteine (Acetylcysteine 20%) 4 ml INH RQ6 [facility] Last Admin: 07/15/18 01:17 Dose: 4 ml Albuterol/Ipratropium (Duoneb 3 Mg/0.5 Mg (3 Ml) Ud) 3 ml INH RQ6 [facility] Last Admin: 07/15/18 01:17 Dose: 3 ml Epoetin Milton (Procrit) 10,000 unit IV TTS [facility] Last Admin: 07/14/18 10:57 Dose: 10,000 unit Ethambutol HCl (Myambutol) 800 mg PO TTS [facility]; Protocol Last Admin: 07/14/18 17:00 Dose: 800 mg Heparin Sodium (Porcine) (Heparin (For Dialysis)) 3,700 units IVP TTS [facility] Stop: 07/26/18 23:00 Last Admin: 07/14/18 10:59 Dose: 3,700 units Hydromorphone HCl (Dilaudid) 0.5 mg IVP Q4H PRN PRN Reason: Pain, severe (8-10) Last Admin: 07/12/18 00:45 Dose: 0.5 mg Propofol (Diprivan) 1,000 mg in 100 mls @ 1.309 mls/hr IV .Q24H PRN; Protocol PRN Reason: TITRATE PER MD ORDER Last Titration: 07/06/18 07:40 Dose: 0 mcg/kg/min, 0 mls/hr Isoniazid (Niazid) 300 mg PO DAILY@1600 [facility]; Protocol Last Admin: 07/14/18 17:00 Dose: 300 mg Metoprolol Succinate (Toprol Xl) 25 mg PO DAILY [facility] Last Admin: 07/15/18 10:37 Dose: 25 mg Ondansetron HCl (Zofran Inj) 4 mg IVP Q4 PRN PRN Reason: Nausea/Vomiting Pyrazinamide (Pyrazinamide) 1,000 mg PO TTS [facility]; Protocol Last Admin: 07/14/18 17:00 Dose: 1,000 mg Pyridoxine HCl (Vitamin B6 50 Mg Tab) 50 mg PO DAILY [facility] Last Admin: 07/15/18 10:37 Dose: 50 mg Rifampin (Rifampin) 450 mg PO DAILY@1600 [facility]; Protocol Last Admin: 07/14/18 17:00 Dose: 450 mg Sevelamer Carbonate (Renvela) 800 mg PO TIDCC [facility] Last Admin: 07/15/18 12:42 Dose: 800 mg Tramadol HCl (Ultram) 25 mg PO TID PRN PRN Reason: Pain, moderate (4-7) Last Admin: 07/13/18 00:11 Dose: 25 mg - Labs Labs: 07/14/18 07:05 07/14/18 07:05 PT 11.5 SECONDS (9.7-12.2) 07/05/18 06:40 INR 1.1 07/05/18 06:40 APTT 35 SECONDS (21-34) H 07/05/18 06:40 - Constitutional Appears: Well, Non-toxic, Chronically Ill - Head Exam Head Exam: ATRAUMATIC, NORMAL INSPECTION - Eye Exam Eye Exam: EOMI, Normal appearance, PERRL Pupil Exam: NORMAL ACCOMODATION - ENT Exam ENT Exam: Mucous Membranes Moist, Normal Exam - Neck Exam Neck Exam: Normal Inspection - Respiratory Exam Respiratory Exam: Decreased Breath Sounds, Clear to Ausculation Bilateral. absent: Accessory Muscle Use, Chest Wall Tenderness, Prolonged Expiratory Phase, Rales, Rhonchi, Wheezes, Respiratory Distress - Cardiovascular Exam Cardiovascular Exam: REGULAR RHYTHM, RRR, +S1, +S2. absent: JVD, Murmur - GI/Abdominal Exam GI & Abdominal Exam: Soft, Normal Bowel Sounds. absent: Tenderness - Back Exam Back Exam: absent: CVA tenderness (L), CVA tenderness (R) - Neurological Exam Neurological Exam: Alert, Awake, CN II-XII Intact, Oriented x3 Assessment and Plan (1) Tuberculosis, primary, pleurisy, histologic diagnosis Status: Acute (2) ESRD (end stage renal disease) Status: Acute (3) Fever Status: Acute (4) Pleural effusion Status: Acute (5) SOB (shortness of breath) Status: Acute (6) Tuberculosis of pleura Status: Acute
--- NOTE | 2018-07-15 13:49 | CP.PCM.PN ---
Subjective - Date & Time of Evaluation Date of Evaluation: 07/15/18 Time of Evaluation: 13:46 - Subjective Subjective: s/p dialysis /- UF 2000ml on TB treatment trying to induce sputum for afb repeat; unsuccessful so far Objective - Vital Signs/Intake and Output Vital Signs (last 24 hours): Temp Pulse Resp BP Pulse Ox 98.1 F 83 20 121/67 100 07/15/18 07:00 07/15/18 07:00 07/15/18 07:00 07/15/18 07:00 07/15/18 07:00 - Medications Medications: Current Medications Acetylcysteine (Acetylcysteine 20%) 4 ml INH RQ6 [facility] Last Admin: 07/15/18 13:37 Dose: Not Given Albuterol/Ipratropium (Duoneb 3 Mg/0.5 Mg (3 Ml) Ud) 3 ml INH RQ6 [facility] Last Admin: 07/15/18 13:37 Dose: 3 ml Epoetin Milton (Procrit) 10,000 unit IV TTS [facility] Last Admin: 07/14/18 10:57 Dose: 10,000 unit Ethambutol HCl (Myambutol) 800 mg PO TTS [facility]; Protocol Last Admin: 07/14/18 17:00 Dose: 800 mg Heparin Sodium (Porcine) (Heparin (For Dialysis)) 3,700 units IVP TTS [facility] Stop: 07/26/18 23:00 Last Admin: 07/14/18 10:59 Dose: 3,700 units Hydromorphone HCl (Dilaudid) 0.5 mg IVP Q4H PRN PRN Reason: Pain, severe (8-10) Last Admin: 07/12/18 00:45 Dose: 0.5 mg Propofol (Diprivan) 1,000 mg in 100 mls @ 1.309 mls/hr IV .Q24H [facility]; Protocol PRN Reason: TITRATE PER MD ORDER Last Titration: 07/06/18 07:40 Dose: 0 mcg/kg/min, 0 mls/hr Isoniazid (Niazid) 300 mg PO DAILY@1600 [facility]; Protocol Last Admin: 07/14/18 17:00 Dose: 300 mg Metoprolol Succinate (Toprol Xl) 25 mg PO DAILY [facility] Last Admin: 07/15/18 10:37 Dose: 25 mg Ondansetron HCl (Zofran Inj) 4 mg IVP Q4 PRN PRN Reason: Nausea/Vomiting Pyrazinamide (Pyrazinamide) 1,000 mg PO TTS [facility]; Protocol Last Admin: 07/14/18 17:00 Dose: 1,000 mg Pyridoxine HCl (Vitamin B6 50 Mg Tab) 50 mg PO DAILY [facility] Last Admin: 07/15/18 10:37 Dose: 50 mg Rifampin (Rifampin) 450 mg PO DAILY@1600 [facility]; Protocol Last Admin: 07/14/18 17:00 Dose: 450 mg Sevelamer Carbonate (Renvela) 800 mg PO TIDCC [facility] Last Admin: 07/15/18 12:42 Dose: 800 mg Tramadol HCl (Ultram) 25 mg PO TID PRN PRN Reason: Pain, moderate (4-7) Last Admin: 07/13/18 00:11 Dose: 25 mg - Labs Labs: 07/14/18 07:05 07/14/18 07:05 PT 11.5 SECONDS (9.7-12.2) 07/05/18 06:40 INR 1.1 07/05/18 06:40 APTT 35 SECONDS (21-34) H 07/05/18 06:40 - Constitutional Appears: No Acute Distress, Chronically Ill - Head Exam Head Exam: ATRAUMATIC, NORMAL INSPECTION - Eye Exam Eye Exam: EOMI, Normal appearance - Respiratory Exam Respiratory Exam: Clear to Ausculation Bilateral, NORMAL BREATHING PATTERN - Cardiovascular Exam Cardiovascular Exam: REGULAR RHYTHM, +S1 - GI/Abdominal Exam GI & Abdominal Exam: Soft. absent: Tenderness - Extremities Exam Extremities Exam: Normal Inspection. absent: Tenderness - Neurological Exam Neurological Exam: Awake, CN II-XII Intact - Skin Skin Exam: Dry, Warm Assessment and Plan (1) ESRD (end stage renal disease) Status: Acute (2) Fever Status: Acute (3) HTN (hypertension) Status: Chronic (4) IgA nephropathy Status: Acute (5) Pneumonia Status: Acute - Assessment and Plan (Free Text) Plan: same dialysis TTS TB treatment induce repeat afb for discharge
--- NOTE | 2018-07-15 18:56 | CP.PCM.PN ---
Subjective - Date & Time of Evaluation Date of Evaluation: 07/15/18 Time of Evaluation: 09:00 - Subjective Subjective: afebrile in NAD await AFB smears- unable to produce may need induction or FOB Objective - Vital Signs/Intake and Output Vital Signs (last 24 hours): Temp Pulse Resp BP Pulse Ox 97.8 F 88 20 150/76 99 07/15/18 15:00 07/15/18 15:00 07/15/18 15:00 07/15/18 15:00 07/15/18 15:00 Intake and Output: 07/15/18 07/15/18 06:59 18:59 Intake Total 350 Balance 350 - Medications Medications: Current Medications Acetylcysteine (Acetylcysteine 20%) 4 ml INH RQ6 [facility] Last Admin: 07/15/18 13:37 Dose: Not Given Albuterol/Ipratropium (Duoneb 3 Mg/0.5 Mg (3 Ml) Ud) 3 ml INH RQ6 [facility] Last Admin: 07/15/18 13:37 Dose: 3 ml Epoetin Milton (Procrit) 10,000 unit IV TTS [facility] Last Admin: 07/14/18 10:57 Dose: 10,000 unit Ethambutol HCl (Myambutol) 800 mg PO TTS [facility]; Protocol Last Admin: 07/14/18 17:00 Dose: 800 mg Hydromorphone HCl (Dilaudid) 0.5 mg IVP Q4H PRN PRN Reason: Pain, severe (8-10) Last Admin: 07/12/18 00:45 Dose: 0.5 mg Propofol (Diprivan) 1,000 mg in 100 mls @ 1.309 mls/hr IV .Q24H [facility]; Protocol PRN Reason: TITRATE PER MD ORDER Last Titration: 07/06/18 07:40 Dose: 0 mcg/kg/min, 0 mls/hr Isoniazid (Niazid) 300 mg PO DAILY@1600 [facility]; Protocol Last Admin: 07/15/18 16:36 Dose: 300 mg Metoprolol Succinate (Toprol Xl) 25 mg PO DAILY [facility] Last Admin: 07/15/18 10:37 Dose: 25 mg Ondansetron HCl (Zofran Inj) 4 mg IVP Q4 PRN PRN Reason: Nausea/Vomiting Pyrazinamide (Pyrazinamide) 1,000 mg PO TTS [facility]; Protocol Last Admin: 07/14/18 17:00 Dose: 1,000 mg Pyridoxine HCl (Vitamin B6 50 Mg Tab) 50 mg PO DAILY [facility] Last Admin: 07/15/18 10:37 Dose: 50 mg Rifampin (Rifampin) 450 mg PO DAILY@1600 [facility]; Protocol Last Admin: 07/15/18 16:37 Dose: 450 mg Sevelamer Carbonate (Renvela) 800 mg PO TIDCC [facility] Last Admin: 07/15/18 18:19 Dose: 800 mg Tramadol HCl (Ultram) 25 mg PO TID PRN PRN Reason: Pain, moderate (4-7) Last Admin: 07/13/18 00:11 Dose: 25 mg - Labs Labs: 07/14/18 07:05 07/14/18 07:05 PT 11.5 SECONDS (9.7-12.2) 07/05/18 06:40 INR 1.1 07/05/18 06:40 APTT 35 SECONDS (21-34) H 07/05/18 06:40 - Constitutional Appears: Well - Head Exam Head Exam: ATRAUMATIC, NORMAL INSPECTION, NORMOCEPHALIC - Eye Exam Eye Exam: EOMI, Normal appearance, PERRL Pupil Exam: NORMAL ACCOMODATION, PERRL - ENT Exam ENT Exam: Mucous Membranes Moist, Normal Exam - Neck Exam Neck Exam: Full ROM, Normal Inspection. absent: Lymphadenopathy - Respiratory Exam Respiratory Exam: Clear to Ausculation Bilateral, NORMAL BREATHING PATTERN - Cardiovascular Exam Cardiovascular Exam: REGULAR RHYTHM, +S1, +S2. absent: Murmur - GI/Abdominal Exam GI & Abdominal Exam: Soft, Normal Bowel Sounds. absent: Tenderness - Rectal Exam Rectal Exam: Deferred - Exam Exam: NORMAL INSPECTION - Extremities Exam Extremities Exam: Full ROM, Normal Capillary Refill, Normal Inspection. absent: Joint Swelling, Pedal Edema - Back Exam Back Exam: NORMAL INSPECTION - Neurological Exam Neurological Exam: Alert, Awake, CN II-XII Intact, Normal Gait, Oriented x3 - Psychiatric Exam Psychiatric exam: Normal Affect, Normal Mood - Skin Skin Exam: Dry, Intact, Normal Color, Warm Assessment and Plan (1) ESRD (end stage renal disease) Status: Acute (2) Pleural effusion Status: Acute (3) Fever Status: Acute (4) Hypertensive chronic kidney disease with stage 5 chronic kidney disease or end stage renal disease Status: Acute (5) Pneumonia Status: Acute (6) ESRD (end stage renal disease) on dialysis Status: Chronic - Assessment and Plan (Free Text) Assessment: cont RIPE therapy
[2018-07-16] MEDS: Acetylcysteine 20% Inhal Soln (4ml) INH SCH ×4 (02:56→19:33)
[2018-07-16] MEDS: Albuterol-Ipratrop 3 mg / 0.5 (3 ml) UD INH SCH ×4 (02:56→19:33)
--- NOTE | 2018-07-16 08:21 | CP.PCM.PN ---
Subjective - Date & Time of Evaluation Date of Evaluation: 07/16/18 Time of Evaluation: 07:45 - Subjective Subjective: Pt no CP, no cough, no n/v, no diarrhea. Want to go home Objective - Vital Signs/Intake and Output Vital Signs (last 24 hours): Temp Pulse Resp BP Pulse Ox 98.8 F 97 H 20 134/82 98 07/15/18 23:25 07/15/18 23:25 07/15/18 23:25 07/15/18 23:25 07/15/18 23:25 - Medications Medications: Current Medications Acetylcysteine (Acetylcysteine 20%) 4 ml INH RQ6 [facility] Last Admin: 07/16/18 02:56 Dose: Not Given Albuterol/Ipratropium (Duoneb 3 Mg/0.5 Mg (3 Ml) Ud) 3 ml INH RQ6 [facility] Last Admin: 07/16/18 02:56 Dose: Not Given Epoetin Milton (Procrit) 10,000 unit IV TTS [facility] Last Admin: 07/14/18 10:57 Dose: 10,000 unit Ethambutol HCl (Myambutol) 800 mg PO TTS [facility]; Protocol Last Admin: 07/14/18 17:00 Dose: 800 mg Hydromorphone HCl (Dilaudid) 0.5 mg IVP Q4H PRN PRN Reason: Pain, severe (8-10) Last Admin: 07/12/18 00:45 Dose: 0.5 mg Propofol (Diprivan) 1,000 mg in 100 mls @ 1.309 mls/hr IV .Q24H PRN; Protocol PRN Reason: TITRATE PER MD ORDER Last Titration: 07/06/18 07:40 Dose: 0 mcg/kg/min, 0 mls/hr Isoniazid (Niazid) 300 mg PO DAILY@1600 [facility]; Protocol Last Admin: 07/15/18 16:36 Dose: 300 mg Metoprolol Succinate (Toprol Xl) 25 mg PO DAILY [facility] Last Admin: 07/15/18 10:37 Dose: 25 mg Ondansetron HCl (Zofran Inj) 4 mg IVP Q4 PRN PRN Reason: Nausea/Vomiting Pyrazinamide (Pyrazinamide) 1,000 mg PO TTS [facility]; Protocol Last Admin: 07/14/18 17:00 Dose: 1,000 mg Pyridoxine HCl (Vitamin B6 50 Mg Tab) 50 mg PO DAILY [facility] Last Admin: 07/15/18 10:37 Dose: 50 mg Rifampin (Rifampin) 450 mg PO DAILY@1600 [facility]; Protocol Last Admin: 07/15/18 16:37 Dose: 450 mg Sevelamer Carbonate (Renvela) 800 mg PO TIDCC [facility] Last Admin: 07/16/18 07:33 Dose: Not Given Tramadol HCl (Ultram) 25 mg PO TID PRN PRN Reason: Pain, moderate (4-7) Last Admin: 07/13/18 00:11 Dose: 25 mg - Labs Labs: 07/14/18 07:05 07/14/18 07:05 PT 11.5 SECONDS (9.7-12.2) 07/05/18 06:40 INR 1.1 07/05/18 06:40 APTT 35 SECONDS (21-34) H 07/05/18 06:40 - Constitutional Appears: No Acute Distress - Eye Exam Eye Exam: Normal appearance - ENT Exam ENT Exam: Mucous Membranes Moist - Neck Exam Neck Exam: Full ROM. absent: Lymphadenopathy, Normal Inspection - Respiratory Exam Respiratory Exam: Clear to Ausculation Bilateral. absent: Rales, Rhonchi, Wheezes - Cardiovascular Exam Cardiovascular Exam: REGULAR RHYTHM, +S1, +S2. absent: Gallop, JVD, Murmur - GI/Abdominal Exam GI & Abdominal Exam: Soft. absent: Guarding, Tenderness, Mass - Extremities Exam Extremities Exam: Full ROM, Normal Capillary Refill. absent: Calf Tenderness, Joint Swelling Assessment and Plan - Assessment and Plan (Free Text) Assessment: Large pleural effusion - TB; HTN, ESRD for possible bronchoscopy cont meds
[2018-07-16] MEDS: Metoprolol Succinate 25 mg XL Tab PO SCH (09:06)
--- NOTE | 2018-07-16 09:40 | CP.PCM.PN ---
Subjective - Date & Time of Evaluation Date of Evaluation: 07/16/18 Time of Evaluation: 09:38 - Subjective Subjective: no acute complaints for HD today sputum pending no chest pain no sob no nausea no vomiting no abominal pain no arthralgias decreased u/o no headache no pruritis Objective - Vital Signs/Intake and Output Vital Signs (last 24 hours): Temp Pulse Resp BP Pulse Ox 98.1 F 91 H 20 132/76 100 07/16/18 06:00 07/16/18 06:00 07/16/18 06:00 07/16/18 06:00 07/16/18 06:00 - Medications Medications: Current Medications Acetylcysteine (Acetylcysteine 20%) 4 ml INH RQ6 [facility] Last Admin: 07/16/18 02:56 Dose: Not Given Albuterol/Ipratropium (Duoneb 3 Mg/0.5 Mg (3 Ml) Ud) 3 ml INH RQ6 [facility] Last Admin: 07/16/18 02:56 Dose: Not Given Epoetin Milton (Procrit) 10,000 unit IV TTS [facility] Last Admin: 07/14/18 10:57 Dose: 10,000 unit Ethambutol HCl (Myambutol) 800 mg PO TTS [facility]; Protocol Last Admin: 07/16/18 09:06 Dose: 800 mg Propofol (Diprivan) 1,000 mg in 100 mls @ 1.309 mls/hr IV .Q24H PRN; Protocol PRN Reason: TITRATE PER MD ORDER Last Titration: 07/06/18 07:40 Dose: 0 mcg/kg/min, 0 mls/hr Isoniazid (Niazid) 300 mg PO DAILY@1600 [facility]; Protocol Last Admin: 07/15/18 16:36 Dose: 300 mg Metoprolol Succinate (Toprol Xl) 25 mg PO DAILY [facility] Last Admin: 07/16/18 09:06 Dose: Not Given Ondansetron HCl (Zofran Inj) 4 mg IVP Q4 PRN PRN Reason: Nausea/Vomiting Pyrazinamide (Pyrazinamide) 1,000 mg PO TTS [facility]; Protocol Last Admin: 07/16/18 09:06 Dose: 1,000 mg Pyridoxine HCl (Vitamin B6 50 Mg Tab) 50 mg PO DAILY [facility] Last Admin: 07/16/18 09:06 Dose: 50 mg Rifampin (Rifampin) 450 mg PO DAILY@1600 [facility]; Protocol Last Admin: 07/15/18 16:37 Dose: 450 mg Sevelamer Carbonate (Renvela) 800 mg PO TIDCC [facility] Last Admin: 07/16/18 09:05 Dose: 800 mg Tramadol HCl (Ultram) 25 mg PO TID PRN PRN Reason: Pain, moderate (4-7) Last Admin: 07/13/18 00:11 Dose: 25 mg - Labs Labs: 07/14/18 07:05 07/14/18 07:05 PT 11.5 SECONDS (9.7-12.2) 07/05/18 06:40 INR 1.1 07/05/18 06:40 APTT 35 SECONDS (21-34) H 07/05/18 06:40 - Constitutional Appears: No Acute Distress, Chronically Ill - Head Exam Head Exam: ATRAUMATIC, NORMAL INSPECTION - Eye Exam Eye Exam: EOMI - ENT Exam ENT Exam: Mucous Membranes Moist - Neck Exam Neck Exam: Full ROM. absent: Lymphadenopathy - Respiratory Exam Respiratory Exam: Decreased Breath Sounds. absent: Rhonchi - Cardiovascular Exam Cardiovascular Exam: REGULAR RHYTHM. absent: Rubs - GI/Abdominal Exam GI & Abdominal Exam: Soft. absent: Tenderness - Extremities Exam Extremities Exam: absent: Pedal Edema Assessment and Plan - Assessment and Plan (Free Text) Assessment: HD today for evaluation of sputum of AFB
[2018-07-16] MEDS: Epoetin Alfa 10,000 unit/ml Dialysis IV SCH (15:35)
--- NOTE | 2018-07-16 16:16 | CP.PCM.PN ---
Subjective - Date & Time of Evaluation Date of Evaluation: 07/16/18 Time of Evaluation: 16:16 - Subjective Subjective: Pulmonary follow up, The Patient was seen and examined at the bedside, Medical records reviewed, and management issues were discussed and formulated with the house staff. Patient feeling wee, denies chect pain, cough and dyspnea. Awake, comfortable, NAD Afebrile Patient remains on respiratory isolation Multiple attempts to get sputum via induction to send for AFB was unsuccessful Patient management was discussed with case libertadkenneth and Ivanna both from the TB clinic, the other accebtable alternative will be Bronch with BA<, Will arrange for Wednesday, Discussed the plan with the patient and her family, they agree Objective - Vital Signs/Intake and Output Vital Signs (last 24 hours): Temp Pulse Resp BP Pulse Ox 98.5 F 89 18 123/71 96 07/16/18 14:30 07/16/18 14:30 07/16/18 14:30 07/16/18 15:30 07/16/18 14:30 Intake and Output: 07/16/18 07/16/18 06:59 18:59 Intake Total 300 Balance 300 - Medications Medications: Current Medications Acetylcysteine (Acetylcysteine 20%) 4 ml INH RQ6 [facility] Last Admin: 07/16/18 13:22 Dose: Not Given Albuterol/Ipratropium (Duoneb 3 Mg/0.5 Mg (3 Ml) Ud) 3 ml INH RQ6 [facility] Last Admin: 07/16/18 13:22 Dose: Not Given Epoetin Milton (Procrit) 10,000 unit IV TTS [facility] Last Admin: 07/16/18 15:35 Dose: 10,000 unit Ethambutol HCl (Myambutol) 800 mg PO TTS [facility]; Protocol Last Admin: 07/16/18 09:06 Dose: 800 mg Propofol (Diprivan) 1,000 mg in 100 mls @ 1.309 mls/hr IV .Q24H PRN; Protocol PRN Reason: TITRATE PER MD ORDER Last Titration: 07/06/18 07:40 Dose: 0 mcg/kg/min, 0 mls/hr Isoniazid (Niazid) 300 mg PO DAILY@1600 [facility]; Protocol Last Admin: 07/15/18 16:36 Dose: 300 mg Metoprolol Succinate (Toprol Xl) 25 mg PO DAILY [facility] Last Admin: 07/16/18 09:06 Dose: Not Given Ondansetron HCl (Zofran Inj) 4 mg IVP Q4 PRN PRN Reason: Nausea/Vomiting Pyrazinamide (Pyrazinamide) 1,000 mg PO TTS [facility]; Protocol Last Admin: 07/16/18 09:06 Dose: 1,000 mg Pyridoxine HCl (Vitamin B6 50 Mg Tab) 50 mg PO DAILY [facility] Last Admin: 07/16/18 09:06 Dose: 50 mg Rifampin (Rifampin) 450 mg PO DAILY@1600 [facility]; Protocol Last Admin: 07/15/18 16:37 Dose: 450 mg Sevelamer Carbonate (Renvela) 800 mg PO TIDCC [facility] Last Admin: 07/16/18 13:00 Dose: Not Given Tramadol HCl (Ultram) 25 mg PO TID PRN PRN Reason: Pain, moderate (4-7) Last Admin: 07/13/18 00:11 Dose: 25 mg - Labs Labs: 07/14/18 07:05 07/14/18 07:05 PT 11.5 SECONDS (9.7-12.2) 07/05/18 06:40 INR 1.1 07/05/18 06:40 APTT 35 SECONDS (21-34) H 07/05/18 06:40 - Constitutional Appears: Well, Non-toxic, Toxic - Head Exam Head Exam: ATRAUMATIC, NORMAL INSPECTION - Eye Exam Eye Exam: EOMI, Normal appearance, PERRL Pupil Exam: NORMAL ACCOMODATION - ENT Exam ENT Exam: Mucous Membranes Moist, Normal Exam - Neck Exam Neck Exam: Full ROM, Normal Inspection - Respiratory Exam Respiratory Exam: Clear to Ausculation Bilateral, NORMAL BREATHING PATTERN - Cardiovascular Exam Cardiovascular Exam: REGULAR RHYTHM, RRR, +S1, +S2. absent: JVD - GI/Abdominal Exam GI & Abdominal Exam: Distended, Soft, Normal Bowel Sounds Assessment and Plan (1) Tuberculosis, primary, pleurisy, histologic diagnosis Status: Acute (2) ESRD (end stage renal disease) Status: Acute (3) Fever Status: Acute (4) Pleural effusion Status: Acute (5) SOB (shortness of breath) Status: Acute (6) Tuberculosis of pleura Status: Acute
[2018-07-17] MEDS: Albuterol-Ipratrop 3 mg / 0.5 (3 ml) UD INH SCH ×4 (01:14→20:29)
[2018-07-17] MEDS: Acetylcysteine 20% Inhal Soln (4ml) INH SCH ×4 (01:14→20:28)
[2018-07-17] MEDS: Metoprolol Succinate 25 mg XL Tab PO SCH (09:00)
--- NOTE | 2018-07-17 11:39 | CP.PCM.PN ---
Subjective - Date & Time of Evaluation Date of Evaluation: 07/17/18 Time of Evaluation: 11:39 - Subjective Subjective: Pulmonary follow up, Covering Dr Allen The Patient was seen and examined at the bedside, Medical records reviewed, and management issues were discussed and formulated with the house staff. Events reviewed Patient remains on respiratory isolation Multiple attempts to get sputum via induction to send for AFB was unsuccessful Patient management was discussed with case piyush and Ivanna both from the TB clinic, the other accebtable alternative will be Bronch with BAL Will arrange for Bronchoscopy, Discussed the plan with the patient and her family, they agree Keep Patient NPO after midnight on wednesday, Coag sent, hold AM dose of anticoagulations Objective - Vital Signs/Intake and Output Vital Signs (last 24 hours): Temp Pulse Resp BP Pulse Ox 98 F 92 H 18 151/80 H 100 07/17/18 08:59 07/17/18 08:59 07/17/18 08:59 07/17/18 08:59 07/17/18 08:59 - Medications Medications: Current Medications Acetylcysteine (Acetylcysteine 20%) 4 ml INH RQ6 [facility] Last Admin: 07/17/18 01:14 Dose: Not Given Albuterol/Ipratropium (Duoneb 3 Mg/0.5 Mg (3 Ml) Ud) 3 ml INH RQ6 [facility] Last Admin: 07/17/18 01:14 Dose: Not Given Epoetin Milton (Procrit) 10,000 unit IV TTS [facility] Last Admin: 07/16/18 15:35 Dose: 10,000 unit Ethambutol HCl (Myambutol) 800 mg PO TTS [facility]; Protocol Last Admin: 07/16/18 09:06 Dose: 800 mg Propofol (Diprivan) 1,000 mg in 100 mls @ 1.309 mls/hr IV .Q24H PRN; Protocol PRN Reason: TITRATE PER MD ORDER Last Titration: 07/06/18 07:40 Dose: 0 mcg/kg/min, 0 mls/hr Isoniazid (Niazid) 300 mg PO DAILY@1600 [facility]; Protocol Last Admin: 07/16/18 20:56 Dose: 300 mg Metoprolol Succinate (Toprol Xl) 25 mg PO DAILY [facility] Last Admin: 07/17/18 09:00 Dose: 25 mg Ondansetron HCl (Zofran Inj) 4 mg IVP Q4 PRN PRN Reason: Nausea/Vomiting Pyrazinamide (Pyrazinamide) 1,000 mg PO TTS [facility]; Protocol Last Admin: 07/16/18 09:06 Dose: 1,000 mg Pyridoxine HCl (Vitamin B6 50 Mg Tab) 50 mg PO DAILY [facility] Last Admin: 07/17/18 09:01 Dose: 50 mg Rifampin (Rifampin) 450 mg PO DAILY@1600 [facility]; Protocol Last Admin: 07/16/18 20:56 Dose: 450 mg Sevelamer Carbonate (Renvela) 800 mg PO TIDCC [facility] Last Admin: 07/17/18 09:00 Dose: 800 mg Tramadol HCl (Ultram) 25 mg PO TID PRN PRN Reason: Pain, moderate (4-7) Last Admin: 07/13/18 00:11 Dose: 25 mg - Labs Labs: 07/14/18 07:05 07/14/18 07:05 PT 11.5 SECONDS (9.7-12.2) 07/05/18 06:40 INR 1.1 07/05/18 06:40 APTT 35 SECONDS (21-34) H 07/05/18 06:40 - Constitutional Appears: Well - Head Exam Head Exam: ATRAUMATIC, NORMAL INSPECTION, NORMOCEPHALIC - Eye Exam Eye Exam: EOMI, Normal appearance, PERRL - Neck Exam Neck Exam: Full ROM, Normal Inspection. absent: Lymphadenopathy - Respiratory Exam Respiratory Exam: Clear to Ausculation Bilateral, NORMAL BREATHING PATTERN - Cardiovascular Exam Cardiovascular Exam: REGULAR RHYTHM, +S1, +S2. absent: Murmur - GI/Abdominal Exam GI & Abdominal Exam: Soft, Normal Bowel Sounds. absent: Tenderness Assessment and Plan (1) Tuberculosis, primary, pleurisy, histologic diagnosis Status: Acute (2) ESRD (end stage renal disease) Status: Acute (3) Fever Status: Acute (4) Pleural effusion Status: Acute (5) SOB (shortness of breath) Status: Acute (6) Tuberculosis of pleura Status: Acute
--- NOTE | 2018-07-17 14:33 | CP.PCM.PN ---
Subjective - Date & Time of Evaluation Date of Evaluation: 07/17/18 Time of Evaluation: 14:28 - Subjective Subjective: S: No fever. Eager to go home. Sitting in chair. Appear richard. Objective - Vital Signs/Intake and Output Vital Signs (last 24 hours): Temp Pulse Resp BP Pulse Ox 98 F 92 H 18 151/80 H 100 07/17/18 08:59 07/17/18 08:59 07/17/18 08:59 07/17/18 08:59 07/17/18 08:59 Intake and Output: 07/17/18 07/17/18 06:59 18:59 Intake Total 300 Balance 300 - Medications Medications: Current Medications Acetylcysteine (Acetylcysteine 20%) 4 ml INH RQ6 [facility] Last Admin: 07/17/18 13:31 Dose: Not Given Albuterol/Ipratropium (Duoneb 3 Mg/0.5 Mg (3 Ml) Ud) 3 ml INH RQ6 [facility] Last Admin: 07/17/18 13:30 Dose: Not Given Epoetin Milton (Procrit) 10,000 unit IV TTS [facility] Last Admin: 07/16/18 15:35 Dose: 10,000 unit Ethambutol HCl (Myambutol) 800 mg PO TTS [facility]; Protocol Last Admin: 07/16/18 09:06 Dose: 800 mg Propofol (Diprivan) 1,000 mg in 100 mls @ 1.309 mls/hr IV .Q24H PRN; Protocol PRN Reason: TITRATE PER MD ORDER Last Titration: 07/06/18 07:40 Dose: 0 mcg/kg/min, 0 mls/hr Isoniazid (Niazid) 300 mg PO DAILY@1600 [facility]; Protocol Last Admin: 07/16/18 20:56 Dose: 300 mg Metoprolol Succinate (Toprol Xl) 25 mg PO DAILY [facility] Last Admin: 07/17/18 09:00 Dose: 25 mg Ondansetron HCl (Zofran Inj) 4 mg IVP Q4 PRN PRN Reason: Nausea/Vomiting Pyrazinamide (Pyrazinamide) 1,000 mg PO TTS [facility]; Protocol Last Admin: 07/16/18 09:06 Dose: 1,000 mg Pyridoxine HCl (Vitamin B6 50 Mg Tab) 50 mg PO DAILY [facility] Last Admin: 07/17/18 09:01 Dose: 50 mg Rifampin (Rifampin) 450 mg PO DAILY@1600 [facility]; Protocol Last Admin: 07/16/18 20:56 Dose: 450 mg Sevelamer Carbonate (Renvela) 800 mg PO TIDCC [facility] Last Admin: 07/17/18 12:18 Dose: 800 mg Tramadol HCl (Ultram) 25 mg PO TID PRN PRN Reason: Pain, moderate (4-7) Last Admin: 07/13/18 00:11 Dose: 25 mg - Labs Labs: 07/14/18 07:05 07/14/18 07:05 PT 11.5 SECONDS (9.7-12.2) 07/05/18 06:40 INR 1.1 07/05/18 06:40 APTT 35 SECONDS (21-34) H 07/05/18 06:40 - Constitutional Appears: Non-toxic - Head Exam Head Exam: NORMAL INSPECTION - Eye Exam Eye Exam: Normal appearance - ENT Exam ENT Exam: Normal Exam - Neck Exam Neck Exam: Normal Inspection - Respiratory Exam Respiratory Exam: NORMAL BREATHING PATTERN - Cardiovascular Exam Cardiovascular Exam: REGULAR RHYTHM - GI/Abdominal Exam GI & Abdominal Exam: Soft - Rectal Exam Rectal Exam: Deferred - Extremities Exam Extremities Exam: Normal Inspection - Neurological Exam Neurological Exam: Alert Assessment and Plan (1) Pleural effusion Status: Acute (2) Tachycardia Status: Acute (3) ESRD (end stage renal disease) on dialysis Status: Chronic (4) HTN (hypertension) Status: Chronic (5) Fever Status: Acute (6) Tuberculosis of pleura Status: Acute - Assessment and Plan (Free Text) Assessment: A/P: Continue medications. For Bronchoscopy
--- NOTE | 2018-07-17 15:48 | CP.PCM.PN ---
Subjective - Date & Time of Evaluation Date of Evaluation: 07/17/18 Time of Evaluation: 08:00 - Subjective Subjective: low gradew fever + NAD await AFB smears cont RIPE Objective - Vital Signs/Intake and Output Vital Signs (last 24 hours): Temp Pulse Resp BP Pulse Ox 98 F 92 H 18 151/80 H 100 07/17/18 08:59 07/17/18 08:59 07/17/18 08:59 07/17/18 08:59 07/17/18 08:59 Intake and Output: 07/17/18 07/17/18 06:59 18:59 Intake Total 300 Balance 300 - Medications Medications: Current Medications Acetylcysteine (Acetylcysteine 20%) 4 ml INH RQ6 [facility] Last Admin: 07/17/18 13:31 Dose: Not Given Albuterol/Ipratropium (Duoneb 3 Mg/0.5 Mg (3 Ml) Ud) 3 ml INH RQ6 [facility] Last Admin: 07/17/18 13:30 Dose: Not Given Epoetin Milton (Procrit) 10,000 unit IV TTS [facility] Last Admin: 07/16/18 15:35 Dose: 10,000 unit Ethambutol HCl (Myambutol) 800 mg PO TTS [facility]; Protocol Last Admin: 07/16/18 09:06 Dose: 800 mg Propofol (Diprivan) 1,000 mg in 100 mls @ 1.309 mls/hr IV .Q24H PRN; Protocol PRN Reason: TITRATE PER MD ORDER Last Titration: 07/06/18 07:40 Dose: 0 mcg/kg/min, 0 mls/hr Isoniazid (Niazid) 300 mg PO DAILY@1600 [facility]; Protocol Last Admin: 07/16/18 20:56 Dose: 300 mg Metoprolol Succinate (Toprol Xl) 25 mg PO DAILY [facility] Last Admin: 07/17/18 09:00 Dose: 25 mg Ondansetron HCl (Zofran Inj) 4 mg IVP Q4 PRN PRN Reason: Nausea/Vomiting Pyrazinamide (Pyrazinamide) 1,000 mg PO TTS [facility]; Protocol Last Admin: 07/16/18 09:06 Dose: 1,000 mg Pyridoxine HCl (Vitamin B6 50 Mg Tab) 50 mg PO DAILY [facility] Last Admin: 07/17/18 09:01 Dose: 50 mg Rifampin (Rifampin) 450 mg PO DAILY@1600 [facility]; Protocol Last Admin: 07/16/18 20:56 Dose: 450 mg Sevelamer Carbonate (Renvela) 800 mg PO TIDCC [facility] Last Admin: 07/17/18 12:18 Dose: 800 mg Tramadol HCl (Ultram) 25 mg PO TID PRN PRN Reason: Pain, moderate (4-7) Last Admin: 07/13/18 00:11 Dose: 25 mg - Labs Labs: 07/14/18 07:05 07/14/18 07:05 PT 11.5 SECONDS (9.7-12.2) 07/05/18 06:40 INR 1.1 07/05/18 06:40 APTT 35 SECONDS (21-34) H 07/05/18 06:40 - Constitutional Appears: No Acute Distress, Cachectic, Chronically Ill - Head Exam Head Exam: ATRAUMATIC, NORMAL INSPECTION, NORMOCEPHALIC - Eye Exam Eye Exam: EOMI, Normal appearance, PERRL Pupil Exam: NORMAL ACCOMODATION, PERRL - ENT Exam ENT Exam: Mucous Membranes Moist, Normal Exam - Neck Exam Neck Exam: Full ROM, Normal Inspection. absent: Lymphadenopathy - Respiratory Exam Respiratory Exam: Clear to Ausculation Bilateral, NORMAL BREATHING PATTERN - Cardiovascular Exam Cardiovascular Exam: REGULAR RHYTHM, +S1, +S2. absent: Murmur - GI/Abdominal Exam GI & Abdominal Exam: Soft, Normal Bowel Sounds. absent: Tenderness - Rectal Exam Rectal Exam: Deferred - Exam Exam: NORMAL INSPECTION - Extremities Exam Extremities Exam: Full ROM, Normal Capillary Refill, Normal Inspection. absent: Joint Swelling, Pedal Edema - Back Exam Back Exam: NORMAL INSPECTION - Neurological Exam Neurological Exam: Alert, Awake, CN II-XII Intact, Normal Gait, Oriented x3 - Psychiatric Exam Psychiatric exam: Normal Affect, Normal Mood - Skin Skin Exam: Dry, Intact, Normal Color, Warm Assessment and Plan (1) ESRD (end stage renal disease) Status: Acute (2) Pleural effusion Status: Acute (3) Fever Status: Acute (4) Hypertensive chronic kidney disease with stage 5 chronic kidney disease or end stage renal disease Status: Acute (5) Pneumonia Status: Acute (6) ESRD (end stage renal disease) on dialysis Status: Chronic - Assessment and Plan (Free Text) Assessment: cont RIPE
[2018-07-18] MEDS: Albuterol-Ipratrop 3 mg / 0.5 (3 ml) UD INH SCH ×3 (01:30→13:10)
[2018-07-18] MEDS: Acetylcysteine 20% Inhal Soln (4ml) INH SCH ×3 (01:30→13:10)
[2018-07-18 07:49] LABS: INR 1.1
--- NOTE | 2018-07-18 08:27 | CP.PCM.PN ---
Subjective - Date & Time of Evaluation Date of Evaluation: 07/18/18 Time of Evaluation: 07:45 - Subjective Subjective: Pt no comp[arnold; Walks around the room. No CP, no SOB, no edema, no cough, no diarrhea. She has good appetite and feels stronger Objective - Vital Signs/Intake and Output Vital Signs (last 24 hours): Temp Pulse Resp BP Pulse Ox 98.2 F 86 20 130/75 100 07/18/18 07:05 07/18/18 07:05 07/18/18 07:05 07/18/18 07:05 07/18/18 07:05 - Medications Medications: Current Medications Acetylcysteine (Acetylcysteine 20%) 4 ml INH RQ6 [facility] Last Admin: 07/18/18 01:30 Dose: Not Given Albuterol/Ipratropium (Duoneb 3 Mg/0.5 Mg (3 Ml) Ud) 3 ml INH RQ6 [facility] Last Admin: 07/18/18 01:30 Dose: Not Given Epoetin Milton (Procrit) 10,000 unit IV TTS [facility] Last Admin: 07/16/18 15:35 Dose: 10,000 unit Ethambutol HCl (Myambutol) 800 mg PO TTS [facility]; Protocol Last Admin: 07/16/18 09:06 Dose: 800 mg Propofol (Diprivan) 1,000 mg in 100 mls @ 1.309 mls/hr IV .Q24H PRN; Protocol PRN Reason: TITRATE PER MD ORDER Last Titration: 07/06/18 07:40 Dose: 0 mcg/kg/min, 0 mls/hr Isoniazid (Niazid) 300 mg PO DAILY@1600 [facility]; Protocol Last Admin: 07/17/18 17:58 Dose: 300 mg Metoprolol Succinate (Toprol Xl) 25 mg PO DAILY [facility] Last Admin: 07/17/18 09:00 Dose: 25 mg Ondansetron HCl (Zofran Inj) 4 mg IVP Q4 PRN PRN Reason: Nausea/Vomiting Pyrazinamide (Pyrazinamide) 1,000 mg PO TTS [facility]; Protocol Last Admin: 07/16/18 09:06 Dose: 1,000 mg Pyridoxine HCl (Vitamin B6 50 Mg Tab) 50 mg PO DAILY [facility] Last Admin: 07/17/18 09:01 Dose: 50 mg Rifampin (Rifampin) 450 mg PO DAILY@1600 [facility]; Protocol Last Admin: 07/17/18 17:58 Dose: 450 mg Sevelamer Carbonate (Renvela) 800 mg PO TIDCC [facility] Last Admin: 07/17/18 17:58 Dose: 800 mg Tramadol HCl (Ultram) 25 mg PO TID PRN PRN Reason: Pain, moderate (4-7) Last Admin: 07/13/18 00:11 Dose: 25 mg - Labs Labs: 07/14/18 07:05 07/14/18 07:05 PT 12.0 SECONDS (9.7-12.2) 07/18/18 07:26 INR 1.1 07/18/18 07:26 APTT 40 SECONDS (21-34) H 07/18/18 07:26 - Constitutional Appears: No Acute Distress - Eye Exam Eye Exam: Normal appearance - ENT Exam ENT Exam: Mucous Membranes Moist - Neck Exam Neck Exam: Full ROM, Normal Inspection. absent: Lymphadenopathy - Respiratory Exam Respiratory Exam: Clear to Ausculation Bilateral. absent: Rales, Rhonchi, Wheezes - Cardiovascular Exam Cardiovascular Exam: REGULAR RHYTHM, +S1, +S2. absent: Gallop, JVD, Murmur - GI/Abdominal Exam GI & Abdominal Exam: Soft, Normal Bowel Sounds. absent: Tenderness - Extremities Exam Extremities Exam: Full ROM, Normal Capillary Refill. absent: Calf Tenderness, Joint Swelling, Pedal Edema Assessment and Plan - Assessment and Plan (Free Text) Assessment: Pneumonia/ atelectasis - resolve Large effusion s/p CT - markedly improve HTN, ESRD Cont RIPE Will restart Norvasc
[2018-07-18] MEDS: Metoprolol Succinate 25 mg XL Tab PO SCH (09:42)
--- NOTE | 2018-07-18 11:35 | CP.PCM.PN ---
Subjective - Date & Time of Evaluation Date of Evaluation: 07/18/18 Time of Evaluation: 11:33 - Subjective Subjective: feels much better no n, v, f, chills, CPs; appetite good for FOB in AM Objective - Vital Signs/Intake and Output Vital Signs (last 24 hours): Temp Pulse Resp BP Pulse Ox 98.2 F 86 20 130/75 100 07/18/18 07:05 07/18/18 07:05 07/18/18 07:05 07/18/18 07:05 07/18/18 07:05 - Medications Medications: Current Medications Acetylcysteine (Acetylcysteine 20%) 4 ml INH RQ6 [facility] Last Admin: 07/18/18 01:30 Dose: Not Given Albuterol/Ipratropium (Duoneb 3 Mg/0.5 Mg (3 Ml) Ud) 3 ml INH RQ6 [facility] Last Admin: 07/18/18 01:30 Dose: Not Given Epoetin Milton (Procrit) 10,000 unit IV TTS [facility] Last Admin: 07/16/18 15:35 Dose: 10,000 unit Ethambutol HCl (Myambutol) 800 mg PO TTS [facility]; Protocol Last Admin: 07/16/18 09:06 Dose: 800 mg Propofol (Diprivan) 1,000 mg in 100 mls @ 1.309 mls/hr IV .Q24H PRN; Protocol PRN Reason: TITRATE PER MD ORDER Last Titration: 07/06/18 07:40 Dose: 0 mcg/kg/min, 0 mls/hr Isoniazid (Niazid) 300 mg PO DAILY@1600 [facility]; Protocol Last Admin: 07/17/18 17:58 Dose: 300 mg Metoprolol Succinate (Toprol Xl) 25 mg PO DAILY [facility] Last Admin: 07/18/18 09:42 Dose: 25 mg Ondansetron HCl (Zofran Inj) 4 mg IVP Q4 PRN PRN Reason: Nausea/Vomiting Pyrazinamide (Pyrazinamide) 1,000 mg PO TTS [facility]; Protocol Last Admin: 07/16/18 09:06 Dose: 1,000 mg Pyridoxine HCl (Vitamin B6 50 Mg Tab) 50 mg PO DAILY [facility] Last Admin: 07/18/18 09:42 Dose: 50 mg Rifampin (Rifampin) 450 mg PO DAILY@1600 [facility]; Protocol Last Admin: 07/17/18 17:58 Dose: 450 mg Sevelamer Carbonate (Renvela) 800 mg PO TIDCC [facility] Last Admin: 07/18/18 09:42 Dose: 800 mg Tramadol HCl (Ultram) 25 mg PO TID PRN PRN Reason: Pain, moderate (4-7) Last Admin: 07/13/18 00:11 Dose: 25 mg - Labs Labs: 07/14/18 07:05 07/14/18 07:05 PT 12.0 SECONDS (9.7-12.2) 07/18/18 07:26 INR 1.1 07/18/18 07:26 APTT 40 SECONDS (21-34) H 07/18/18 07:26 - Constitutional Appears: No Acute Distress, Chronically Ill - Head Exam Head Exam: ATRAUMATIC, NORMAL INSPECTION - Eye Exam Eye Exam: EOMI, Normal appearance - Neck Exam Neck Exam: Normal Inspection. absent: Tenderness - Respiratory Exam Respiratory Exam: Clear to Ausculation Bilateral, NORMAL BREATHING PATTERN - Cardiovascular Exam Cardiovascular Exam: REGULAR RHYTHM, +S1 - GI/Abdominal Exam GI & Abdominal Exam: Soft. absent: Tenderness - Extremities Exam Extremities Exam: Normal Inspection. absent: Tenderness - Neurological Exam Neurological Exam: Awake, CN II-XII Intact - Skin Skin Exam: Dry, Warm Assessment and Plan (1) ESRD (end stage renal disease) Status: Acute (2) Fever Status: Acute (3) HTN (hypertension) Status: Chronic (4) IgA nephropathy Status: Acute (5) Pneumonia Status: Acute - Assessment and Plan (Free Text) Plan: FOB in AM anti TB regimen Dialysis in AM
--- NOTE | 2018-07-18 17:37 | CP.PCM.PN ---
Subjective - Date & Time of Evaluation Date of Evaluation: 07/18/18 Time of Evaluation: 17:36 - Subjective Subjective: Pulmonary follow up, Covering Dr Allen The Patient was seen and examined at the bedside, Medical records reviewed, and management issues were discussed and formulated with the house staff. Events reviewed Patient remains on respiratory isolation Multiple attempts to get sputum via induction to send for AFB was unsuccessful Patient management was discussed with case piyush and Ivanna both from the TB clinic, the other accebtable alternative will be Bronch with BAL Will arrange for Bronchoscopy, Discussed the plan with the patient and her family, they agree Keep Patient NPO after midnight today, Coag sent, hold AM dose of anticoagulations For Bronchoscopy with Dr Allen tomorrow morning Objective - Vital Signs/Intake and Output Vital Signs (last 24 hours): Temp Pulse Resp BP Pulse Ox 98.2 F 92 H 20 141/79 98 07/18/18 15:00 07/18/18 15:00 07/18/18 15:00 07/18/18 15:00 07/18/18 15:00 - Medications Medications: Current Medications Acetylcysteine (Acetylcysteine 20%) 4 ml INH RQ6 [facility] Last Admin: 07/18/18 13:10 Dose: Not Given Albuterol/Ipratropium (Duoneb 3 Mg/0.5 Mg (3 Ml) Ud) 3 ml INH RQ6 [facility] Last Admin: 07/18/18 13:10 Dose: Not Given Epoetin Milton (Procrit) 10,000 unit IV TTS [facility] Last Admin: 07/16/18 15:35 Dose: 10,000 unit Ethambutol HCl (Myambutol) 800 mg PO TTS [facility]; Protocol Last Admin: 07/16/18 09:06 Dose: 800 mg Propofol (Diprivan) 1,000 mg in 100 mls @ 1.309 mls/hr IV .Q24H PRN; Protocol PRN Reason: TITRATE PER MD ORDER Last Titration: 07/06/18 07:40 Dose: 0 mcg/kg/min, 0 mls/hr Isoniazid (Niazid) 300 mg PO DAILY@1600 [facility]; Protocol Last Admin: 07/17/18 17:58 Dose: 300 mg Metoprolol Succinate (Toprol Xl) 25 mg PO DAILY [facility] Last Admin: 07/18/18 09:42 Dose: 25 mg Ondansetron HCl (Zofran Inj) 4 mg IVP Q4 PRN PRN Reason: Nausea/Vomiting Pyrazinamide (Pyrazinamide) 1,000 mg PO TTS [facility]; Protocol Last Admin: 07/16/18 09:06 Dose: 1,000 mg Pyridoxine HCl (Vitamin B6 50 Mg Tab) 50 mg PO DAILY [facility] Last Admin: 07/18/18 09:42 Dose: 50 mg Rifampin (Rifampin) 450 mg PO DAILY@1600 [facility]; Protocol Last Admin: 07/18/18 17:17 Dose: 450 mg Sevelamer Carbonate (Renvela) 800 mg PO TIDCC [facility] Last Admin: 07/18/18 17:17 Dose: 800 mg Tramadol HCl (Ultram) 25 mg PO TID PRN PRN Reason: Pain, moderate (4-7) Last Admin: 07/13/18 00:11 Dose: 25 mg - Labs Labs: 07/14/18 07:05 07/14/18 07:05 PT 12.0 SECONDS (9.7-12.2) 07/18/18 07:26 INR 1.1 07/18/18 07:26 APTT 40 SECONDS (21-34) H 07/18/18 07:26 - Constitutional Appears: Well, Non-toxic - Head Exam Head Exam: ATRAUMATIC, NORMAL INSPECTION - Eye Exam Eye Exam: EOMI, Normal appearance, PERRL - ENT Exam ENT Exam: Mucous Membranes Moist, Normal Exam - Neck Exam Neck Exam: Full ROM, Normal Inspection. absent: Lymphadenopathy - Respiratory Exam Respiratory Exam: Clear to Ausculation Bilateral, NORMAL BREATHING PATTERN - Cardiovascular Exam Cardiovascular Exam: REGULAR RHYTHM, +S1, +S2. absent: Murmur - GI/Abdominal Exam GI & Abdominal Exam: Soft, Normal Bowel Sounds. absent: Tenderness Assessment and Plan (1) Tuberculosis, primary, pleurisy, histologic diagnosis Status: Acute (2) ESRD (end stage renal disease) Status: Acute (3) Fever Status: Acute (4) Pleural effusion Status: Acute (5) SOB (shortness of breath) Status: Acute (6) Tuberculosis of pleura Status: Acute
[2018-07-19] MEDS: Acetylcysteine 20% Inhal Soln (4ml) INH SCH ×3 (02:00→13:55)
[2018-07-19] MEDS: Epoetin Alfa 10,000 unit/ml Dialysis IV SCH (09:55)
--- NOTE | 2018-07-19 10:34 | CP.PCM.PN ---
Subjective - Date & Time of Evaluation Date of Evaluation: 07/19/18 Time of Evaluation: 10:35 - Subjective Subjective: bp stable afebrile presently on dialysis comfortable in bed ROS entire 10 point ROS negative Objective - Vital Signs/Intake and Output Vital Signs (last 24 hours): Temp Pulse Resp BP Pulse Ox 97.3 F L 85 16 159/86 H 100 07/19/18 09:20 07/19/18 09:20 07/19/18 09:20 07/19/18 09:20 07/19/18 08:19 - Medications Medications: Current Medications Acetylcysteine (Acetylcysteine 20%) 4 ml INH RQ6 [facility] Last Admin: 07/19/18 02:00 Dose: Not Given Epoetin Milton (Procrit) 10,000 unit IV TTS [facility] Last Admin: 07/19/18 09:55 Dose: 10,000 unit Ethambutol HCl (Myambutol) 800 mg PO TTS [facility]; Protocol Last Admin: 07/16/18 09:06 Dose: 800 mg Propofol (Diprivan) 1,000 mg in 100 mls @ 1.309 mls/hr IV .Q24H PRN; Protocol PRN Reason: TITRATE PER MD ORDER Last Titration: 07/06/18 07:40 Dose: 0 mcg/kg/min, 0 mls/hr Isoniazid (Niazid) 300 mg PO DAILY@1600 [facility]; Protocol Last Admin: 07/18/18 16:46 Dose: 300 mg Metoprolol Succinate (Toprol Xl) 25 mg PO DAILY [facility] Last Admin: 07/18/18 09:42 Dose: 25 mg Ondansetron HCl (Zofran Inj) 4 mg IVP Q4 PRN PRN Reason: Nausea/Vomiting Pyrazinamide (Pyrazinamide) 1,000 mg PO TTS [facility]; Protocol Last Admin: 07/16/18 09:06 Dose: 1,000 mg Pyridoxine HCl (Vitamin B6 50 Mg Tab) 50 mg PO DAILY [facility] Last Admin: 07/18/18 09:42 Dose: 50 mg Rifampin (Rifampin) 450 mg PO DAILY@1600 [facility]; Protocol Last Admin: 07/18/18 17:17 Dose: 450 mg Sevelamer Carbonate (Renvela) 800 mg PO TIDCC [facility] Last Admin: 07/18/18 17:17 Dose: 800 mg Tramadol HCl (Ultram) 25 mg PO TID PRN PRN Reason: Pain, moderate (4-7) Last Admin: 07/13/18 00:11 Dose: 25 mg - Labs Labs: 07/14/18 07:05 07/14/18 07:05 PT 12.0 SECONDS (9.7-12.2) 07/18/18 07:26 INR 1.1 07/18/18 07:26 APTT 40 SECONDS (21-34) H 07/18/18 07:26 - Constitutional Appears: Well, No Acute Distress - Eye Exam Eye Exam: absent: Conjunctival injection - ENT Exam ENT Exam: Mucous Membranes Moist - Respiratory Exam Respiratory Exam: Clear to Ausculation Bilateral, NORMAL BREATHING PATTERN - Cardiovascular Exam Cardiovascular Exam: REGULAR RHYTHM. absent: JVD - GI/Abdominal Exam GI & Abdominal Exam: Soft. absent: Distended, Tenderness - Extremities Exam Extremities Exam: absent: Calf Tenderness - Neurological Exam Neurological Exam: Alert - Psychiatric Exam Psychiatric exam: Normal Mood - Skin Skin Exam: Dry, Warm Assessment and Plan (1) ESRD (end stage renal disease) Status: Acute (2) Pleural effusion Status: Acute (3) HTN (hypertension) Status: Chronic - Assessment and Plan (Free Text) Plan: try to remove 2 kg
[2018-07-19] MEDS: Metoprolol Succinate 25 mg XL Tab PO SCH (14:23)
--- NOTE | 2018-07-19 16:47 | CP.PCM.PN ---
Subjective - Date & Time of Evaluation Date of Evaluation: 07/19/18 Time of Evaluation: 19:00 - Subjective Subjective: Pulmonary follow up, Covering Dr Allen The Patient was seen and examined at the bedside, Medical records reviewed, and management issues were discussed and formulated with the house staff. Events reviewed Objective - Vital Signs/Intake and Output Vital Signs (last 24 hours): Temp Pulse Resp BP Pulse Ox 97.9 F 100 H 20 149/82 100 07/19/18 15:00 07/19/18 15:00 07/19/18 15:00 07/19/18 15:00 07/19/18 15:00 - Medications Medications: Current Medications Acetylcysteine (Acetylcysteine 20%) 4 ml INH RQ6 [facility] Last Admin: 07/19/18 13:55 Dose: Not Given Epoetin Milton (Procrit) 10,000 unit IV TTS [facility] Last Admin: 07/19/18 09:55 Dose: 10,000 unit Propofol (Diprivan) 1,000 mg in 100 mls @ 1.309 mls/hr IV .Q24H PRN; Protocol PRN Reason: TITRATE PER MD ORDER Last Titration: 07/06/18 07:40 Dose: 0 mcg/kg/min, 0 mls/hr Isoniazid (Niazid) 300 mg PO DAILY@1600 [facility]; Protocol Last Admin: 07/18/18 16:46 Dose: 300 mg Metoprolol Succinate (Toprol Xl) 25 mg PO DAILY [facility] Last Admin: 07/19/18 14:23 Dose: Not Given Ondansetron HCl (Zofran Inj) 4 mg IVP Q4 PRN PRN Reason: Nausea/Vomiting Pyridoxine HCl (Vitamin B6 50 Mg Tab) 50 mg PO DAILY [facility] Last Admin: 07/19/18 14:23 Dose: Not Given Rifampin (Rifampin) 450 mg PO DAILY@1600 [facility]; Protocol Last Admin: 07/18/18 17:17 Dose: 450 mg Sevelamer Carbonate (Renvela) 800 mg PO TIDCC [facility] Last Admin: 07/19/18 14:22 Dose: Not Given Tramadol HCl (Ultram) 25 mg PO TID PRN PRN Reason: Pain, moderate (4-7) Last Admin: 07/13/18 00:11 Dose: 25 mg - Labs Labs: 07/14/18 07:05 07/14/18 07:05 PT 12.0 SECONDS (9.7-12.2) 07/18/18 07:26 INR 1.1 07/18/18 07:26 APTT 40 SECONDS (21-34) H 07/18/18 07:26 Assessment and Plan (1) Tuberculosis, primary, pleurisy, histologic diagnosis Status: Acute (2) ESRD (end stage renal disease) Status: Acute (3) Fever Status: Acute (4) Pleural effusion Status: Acute (5) SOB (shortness of breath) Status: Acute (6) Tuberculosis of pleura Status: Acute
--- NOTE | 2018-07-19 18:01 | CP.PCM.PN ---
Subjective - Date & Time of Evaluation Date of Evaluation: 07/19/18 Time of Evaluation: 17:59 - Subjective Subjective: S: Feels better. No fever. Objective - Vital Signs/Intake and Output Vital Signs (last 24 hours): Temp Pulse Resp BP Pulse Ox 97.9 F 100 H 20 149/82 100 07/19/18 15:00 07/19/18 15:00 07/19/18 15:00 07/19/18 15:00 07/19/18 15:00 - Medications Medications: Current Medications Acetylcysteine (Acetylcysteine 20%) 4 ml INH RQ6 [facility] Last Admin: 07/19/18 13:55 Dose: Not Given Epoetin Milton (Procrit) 10,000 unit IV TTS [facility] Last Admin: 07/19/18 09:55 Dose: 10,000 unit Propofol (Diprivan) 1,000 mg in 100 mls @ 1.309 mls/hr IV .Q24H [facility]; Protocol PRN Reason: TITRATE PER MD ORDER Last Titration: 07/06/18 07:40 Dose: 0 mcg/kg/min, 0 mls/hr Isoniazid (Niazid) 300 mg PO DAILY@1600 [facility]; Protocol Last Admin: 07/19/18 17:42 Dose: 300 mg Metoprolol Succinate (Toprol Xl) 25 mg PO DAILY [facility] Last Admin: 07/19/18 14:23 Dose: Not Given Ondansetron HCl (Zofran Inj) 4 mg IVP Q4 PRN PRN Reason: Nausea/Vomiting Pyridoxine HCl (Vitamin B6 50 Mg Tab) 50 mg PO DAILY [facility] Last Admin: 07/19/18 14:23 Dose: Not Given Rifampin (Rifampin) 450 mg PO DAILY@1600 [facility]; Protocol Last Admin: 07/19/18 17:42 Dose: 450 mg Sevelamer Carbonate (Renvela) 800 mg PO TIDCC [facility] Last Admin: 07/19/18 17:43 Dose: 800 mg Tramadol HCl (Ultram) 25 mg PO TID PRN PRN Reason: Pain, moderate (4-7) Last Admin: 07/13/18 00:11 Dose: 25 mg - Labs Labs: 07/14/18 07:05 07/14/18 07:05 PT 12.0 SECONDS (9.7-12.2) 03/11/19 07:26 INR 1.1 07/18/18 07:26 APTT 40 SECONDS (21-34) H 07/18/18 07:26 - Constitutional Appears: Non-toxic - Head Exam Head Exam: NORMAL INSPECTION - Eye Exam Eye Exam: Normal appearance - ENT Exam ENT Exam: Normal Exam - Neck Exam Neck Exam: Normal Inspection - Respiratory Exam Respiratory Exam: Decreased Breath Sounds - GI/Abdominal Exam GI & Abdominal Exam: Soft - Rectal Exam Rectal Exam: Deferred - Extremities Exam Extremities Exam: Normal Inspection - Neurological Exam Neurological Exam: Alert Assessment and Plan (1) Pleural effusion Status: Acute (2) Tachycardia Status: Acute (3) ESRD (end stage renal disease) on dialysis Status: Chronic (4) HTN (hypertension) Status: Chronic (5) Fever Status: Acute (6) Tuberculosis of pleura Status: Acute - Assessment and Plan (Free Text) Assessment: A/p: For Bronchoscopy. Continue medications
[2018-07-20] MEDS: Acetylcysteine 20% Inhal Soln (4ml) INH SCH ×2 (01:29→07:30)
--- NOTE | 2018-07-20 07:23 | CP.PCM.PN ---
Subjective - Date & Time of Evaluation Date of Evaluation: 07/20/18 Time of Evaluation: 07:21 - Subjective Subjective: tolerated HD no acute complaints no fever no cough no dyspnea no nausea no abdominal pain no headache or tremors no rash decreased urine output no arthralgias Objective - Vital Signs/Intake and Output Vital Signs (last 24 hours): Temp Pulse Resp BP Pulse Ox 98.7 F 95 H 20 146/74 100 07/20/18 05:05 07/20/18 05:05 07/20/18 05:05 07/20/18 05:05 07/20/18 05:05 - Medications Medications: Current Medications Acetylcysteine (Acetylcysteine 20%) 4 ml INH RQ6 [facility] Last Admin: 07/20/18 01:29 Dose: Not Given Epoetin Milton (Procrit) 10,000 unit IV TTS [facility] Last Admin: 07/19/18 09:55 Dose: 10,000 unit Propofol (Diprivan) 1,000 mg in 100 mls @ 1.309 mls/hr IV .Q24H [facility]; Protocol PRN Reason: TITRATE PER MD ORDER Last Titration: 07/06/18 07:40 Dose: 0 mcg/kg/min, 0 mls/hr Isoniazid (Niazid) 300 mg PO DAILY@1600 [facility]; Protocol Last Admin: 07/19/18 17:42 Dose: 300 mg Ondansetron HCl (Zofran Inj) 4 mg IVP Q4 PRN PRN Reason: Nausea/Vomiting Pyridoxine HCl (Vitamin B6 50 Mg Tab) 50 mg PO DAILY [facility] Last Admin: 07/19/18 14:23 Dose: Not Given Rifampin (Rifampin) 450 mg PO DAILY@1600 [facility]; Protocol Last Admin: 07/19/18 17:42 Dose: 450 mg Sevelamer Carbonate (Renvela) 800 mg PO TIDCC [facility] Last Admin: 07/19/18 17:43 Dose: 800 mg Tramadol HCl (Ultram) 25 mg PO TID PRN PRN Reason: Pain, moderate (4-7) Last Admin: 07/13/18 00:11 Dose: 25 mg - Labs Labs: 07/14/18 07:05 07/14/18 07:05 PT 12.0 SECONDS (9.7-12.2) 07/18/18 07:26 INR 1.1 07/18/18 07:26 APTT 40 SECONDS (21-34) H 07/18/18 07:26 - Constitutional Appears: Non-toxic, Chronically Ill - Head Exam Head Exam: ATRAUMATIC, NORMAL INSPECTION - Eye Exam Eye Exam: EOMI - ENT Exam ENT Exam: Mucous Membranes Moist - Neck Exam Neck Exam: Full ROM. absent: Lymphadenopathy - Respiratory Exam Respiratory Exam: absent: Wheezes Additional comments: poor inspiratory effort - Cardiovascular Exam Cardiovascular Exam: REGULAR RHYTHM. absent: Rubs - GI/Abdominal Exam GI & Abdominal Exam: Soft. absent: Tenderness - Extremities Exam Extremities Exam: absent: Pedal Edema - Neurological Exam Neurological Exam: Alert, Oriented x3 Assessment and Plan - Assessment and Plan (Free Text) Assessment: FOB planned today for AF[facility] HD in am continue same
--- NOTE | 2018-07-20 08:42 | CP.PCM.PN ---
Subjective - Date & Time of Evaluation Date of Evaluation: 12/20/18 Time of Evaluation: 08:25 - Subjective Subjective: Pt no complain; Frustrated c/o unable to leave hospital. No cough, no n/v, no SOB, no diarrhea Objective - Vital Signs/Intake and Output Vital Signs (last 24 hours): Temp Pulse Resp BP Pulse Ox 98.7 F 95 H 20 146/74 100 07/20/18 05:05 07/20/18 05:05 07/20/18 05:05 07/20/18 05:05 07/20/18 05:05 - Medications Medications: Current Medications Acetylcysteine (Acetylcysteine 20%) 4 ml INH RQ6 [facility] Last Admin: 07/20/18 01:29 Dose: Not Given Epoetin [place] (Procrit) 10,000 unit IV TTS [facility] Last Admin: 07/19/18 09:55 Dose: 10,000 unit Propofol (Diprivan) 1,000 mg in 100 mls @ 1.309 mls/hr IV .Q24H PRN; Protocol PRN Reason: TITRATE PER MD ORDER Last Titration: 07/06/18 07:40 Dose: 0 mcg/kg/min, 0 mls/hr Isoniazid (Niazid) 300 mg PO DAILY@1600 [facility]; Protocol Last Admin: 07/19/18 17:42 Dose: 300 mg Ondansetron HCl (Zofran Inj) 4 mg IVP Q4 PRN PRN Reason: Nausea/Vomiting Pyridoxine HCl (Vitamin B6 50 Mg Tab) 50 mg PO DAILY [facility] Last Admin: 07/19/18 14:23 Dose: Not Given Rifampin (Rifampin) 450 mg PO DAILY@1600 [facility]; Protocol Last Admin: 07/19/18 17:42 Dose: 450 mg Sevelamer Carbonate (Renvela) 800 mg PO TIDCC [facility] Last Admin: 07/20/18 07:52 Dose: Not Given Tramadol HCl (Ultram) 25 mg PO TID PRN PRN Reason: Pain, moderate (4-7) Last Admin: 07/13/18 00:11 Dose: 25 mg - Labs Labs: 07/14/18 07:05 07/14/18 07:05 PT 12.0 SECONDS (9.7-12.2) 07/18/18 07:26 INR 1.1 07/18/18 07:26 APTT 40 SECONDS (21-34) H 07/18/18 07:26 - Constitutional Appears: No Acute Distress - Eye Exam Eye Exam: Normal appearance - ENT Exam ENT Exam: Mucous Membranes Moist - Neck Exam Neck Exam: Full ROM. absent: Lymphadenopathy, Thyromegaly - Respiratory Exam Respiratory Exam: Clear to Ausculation Bilateral. absent: Rales, Rhonchi, Wheezes - Cardiovascular Exam Cardiovascular Exam: REGULAR RHYTHM, +S1, +S2. absent: Gallop, JVD - GI/Abdominal Exam GI & Abdominal Exam: Soft. absent: Tenderness, Normal Bowel Sounds - Extremities Exam Extremities Exam: Full ROM. absent: Calf Tenderness, Normal Capillary Refill, Pedal Edema Assessment and Plan - Assessment and Plan (Free Text) Assessment: Large effusion 2 to TB Pneumonia - resolve HTN, ESRD Restart Norvasc; On HD Discuss c/o on TB clinic holding discharge
--- NOTE | 2018-07-20 18:12 | CP.PCM.PN ---
Subjective - Date & Time of Evaluation Date of Evaluation: 07/20/18 Time of Evaluation: 08:00 - Subjective Subjective: seen on rounds no new complaints labs / x rays reviewed orders signed Objective - Vital Signs/Intake and Output Vital Signs (last 24 hours): Temp Pulse Resp BP Pulse Ox 98.5 F 97 H 20 132/64 97 07/20/18 16:00 07/20/18 16:00 07/20/18 16:00 07/20/18 16:00 07/20/18 16:00 - Medications Medications: Current Medications Acetylcysteine (Acetylcysteine 20%) 4 ml INH RQ6 [facility] Last Admin: 07/20/18 07:30 Dose: Not Given Epoetin Milton (Procrit) 10,000 unit IV TTS [facility] Last Admin: 07/19/18 09:55 Dose: 10,000 unit Isoniazid (Niazid) 300 mg PO DAILY@1600 [facility]; Protocol Last Admin: 07/20/18 17:42 Dose: 300 mg Ondansetron HCl (Zofran Inj) 4 mg IVP Q4 PRN PRN Reason: Nausea/Vomiting Pyridoxine HCl (Vitamin B6 50 Mg Tab) 50 mg PO DAILY [facility] Last Admin: 07/20/18 10:23 Dose: Not Given Rifampin (Rifampin) 450 mg PO DAILY@1600 [facility]; Protocol Last Admin: 07/20/18 17:42 Dose: 450 mg Sevelamer Carbonate (Renvela) 800 mg PO TIDCC [facility] Last Admin: 07/20/18 17:41 Dose: 800 mg Tramadol HCl (Ultram) 25 mg PO TID PRN PRN Reason: Pain, moderate (4-7) Last Admin: 07/13/18 00:11 Dose: 25 mg - Labs Labs: 07/14/18 07:05 07/14/18 07:05 PT 12.0 SECONDS (9.7-12.2) 07/18/18 07:26 INR 1.1 07/18/18 07:26 APTT 40 SECONDS (21-34) H 07/18/18 07:26 - Constitutional Appears: Non-toxic, Chronically Ill - Head Exam Head Exam: ATRAUMATIC, NORMAL INSPECTION, NORMOCEPHALIC - Eye Exam Eye Exam: EOMI, Normal appearance, PERRL Pupil Exam: NORMAL ACCOMODATION, PERRL - ENT Exam ENT Exam: Mucous Membranes Moist, Normal Exam - Neck Exam Neck Exam: Full ROM, Normal Inspection. absent: Lymphadenopathy - Respiratory Exam Respiratory Exam: Clear to Ausculation Bilateral, NORMAL BREATHING PATTERN - Cardiovascular Exam Cardiovascular Exam: REGULAR RHYTHM, +S1, +S2. absent: Murmur - GI/Abdominal Exam GI & Abdominal Exam: Soft, Normal Bowel Sounds. absent: Tenderness - Rectal Exam Rectal Exam: Deferred - Extremities Exam Extremities Exam: Full ROM, Normal Capillary Refill, Normal Inspection. absent: Joint Swelling, Pedal Edema - Back Exam Back Exam: NORMAL INSPECTION - Neurological Exam Neurological Exam: Alert, Awake, CN II-XII Intact, Normal Gait, Oriented x3 - Psychiatric Exam Psychiatric exam: Normal Affect, Normal Mood - Skin Skin Exam: Dry, Intact, Normal Color, Warm Assessment and Plan (1) ESRD (end stage renal disease) Status: Acute (2) Pleural effusion Status: Acute (3) Fever Status: Acute (4) Hypertensive chronic kidney disease with stage 5 chronic kidney disease or end stage renal disease Status: Acute (5) Pneumonia Status: Acute (6) ESRD (end stage renal disease) on dialysis Status: Chronic - Assessment and Plan (Free Text) Assessment: cont RIPE rx awaiting bronchoscopy
[2018-07-21] MEDS: Acetylcysteine 20% Inhal Soln (4ml) INH SCH ×3 (01:21→13:30)
--- NOTE | 2018-07-21 09:45 | CP.PCM.PN ---
Subjective - Date & Time of Evaluation Date of Evaluation: 07/21/18 Time of Evaluation: 09:42 - Subjective Subjective: seen at dialysis awake, alert no new complaint still unable to produce sputum; repeat afb not done await FOB afebrile; no n, v, diarrhea, chills Objective - Vital Signs/Intake and Output Vital Signs (last 24 hours): Temp Pulse Resp BP Pulse Ox 98.2 F 100 H 20 156/80 H 100 07/21/18 08:30 07/21/18 08:30 07/21/18 08:30 07/21/18 08:30 07/21/18 08:30 - Medications Medications: Current Medications Acetylcysteine (Acetylcysteine 20%) 4 ml INH RQ6 [facility] Last Admin: 07/21/18 07:45 Dose: Not Given Epoetin Milton (Procrit) 10,000 unit IV TTS [facility] Last Admin: 07/19/18 09:55 Dose: 10,000 unit Ethambutol HCl (Myambutol) 800 mg PO TTS [facility]; Protocol Last Admin: 07/21/18 09:06 Dose: 800 mg Isoniazid (Niazid) 300 mg PO DAILY@1600 [facility]; Protocol Last Admin: 07/20/18 17:42 Dose: 300 mg Ondansetron HCl (Zofran Inj) 4 mg IVP Q4 PRN PRN Reason: Nausea/Vomiting Pyrazinamide (Pyrazinamide) 1,000 mg PO TTS [facility]; Protocol Last Admin: 07/21/18 09:06 Dose: 1,000 mg Pyridoxine HCl (Vitamin B6 50 Mg Tab) 50 mg PO DAILY [facility] Last Admin: 07/21/18 09:06 Dose: 50 mg Rifampin (Rifampin) 450 mg PO DAILY@1600 [facility]; Protocol Last Admin: 07/20/18 17:42 Dose: 450 mg Sevelamer Carbonate (Renvela) 800 mg PO TIDCC [facility] Last Admin: 07/21/18 08:20 Dose: 800 mg Tramadol HCl (Ultram) 25 mg PO TID PRN PRN Reason: Pain, moderate (4-7) Last Admin: 07/13/18 00:11 Dose: 25 mg - Labs Labs: 07/14/18 07:05 07/14/18 07:05 PT 12.0 SECONDS (9.7-12.2) 07/18/18 07:26 INR 1.1 07/18/18 07:26 APTT 40 SECONDS (21-34) H 07/18/18 07:26 - Constitutional Appears: No Acute Distress, Chronically Ill - Head Exam Head Exam: ATRAUMATIC, NORMAL INSPECTION - Eye Exam Eye Exam: EOMI, Normal appearance - Neck Exam Neck Exam: Normal Inspection. absent: Tenderness - Respiratory Exam Respiratory Exam: Clear to Ausculation Bilateral, NORMAL BREATHING PATTERN - Cardiovascular Exam Cardiovascular Exam: REGULAR RHYTHM, +S1 - GI/Abdominal Exam GI & Abdominal Exam: Soft. absent: Tenderness - Extremities Exam Extremities Exam: Normal Inspection. absent: Tenderness - Neurological Exam Neurological Exam: Awake, CN II-XII Intact - Psychiatric Exam Psychiatric exam: Depressed - Skin Skin Exam: Dry, Warm Assessment and Plan (1) ESRD (end stage renal disease) Status: Acute (2) Fever Status: Acute (3) HTN (hypertension) Status: Chronic (4) IgA nephropathy Status: Acute (5) Pneumonia Status: Acute - Assessment and Plan (Free Text) Plan: dialysis now- UF 1500ml; and TTS anti TB regimen await repeat afb- possible FOB
[2018-07-21] MEDS: Epoetin Alfa 10,000 unit/ml Dialysis IV SCH (12:17)
[2018-07-21 16:03] VITALS: RESP 20
--- NOTE | 2018-07-21 16:46 | CP.PCM.PN ---
Subjective - Date & Time of Evaluation Date of Evaluation: 07/21/18 Time of Evaluation: 11:00 - Subjective Subjective: Patient seen and examined at bedside. She currently feels well. Patient is clinically much improved , has no fever, no cough, no weight loss, no night sweats. she has been on anti-TB meds for weeks. Objective - Vital Signs/Intake and Output Vital Signs (last 24 hours): Temp Pulse Resp BP Pulse Ox 98.9 F 103 H 20 181/87 H 98 07/21/18 15:01 07/21/18 15:01 07/21/18 15:01 07/21/18 15:01 07/21/18 15:01 - Medications Medications: Current Medications Acetylcysteine (Acetylcysteine 20%) 4 ml INH RQ6 [facility] Last Admin: 07/21/18 13:30 Dose: Not Given Epoetin Milton (Procrit) 10,000 unit IV TTS [facility] Last Admin: 07/21/18 12:17 Dose: 10,000 unit Ethambutol HCl (Myambutol) 800 mg PO TTS [facility]; Protocol Last Admin: 07/21/18 09:06 Dose: 800 mg Isoniazid (Niazid) 300 mg PO DAILY@1600 [facility]; Protocol Last Admin: 07/20/18 17:42 Dose: 300 mg Ondansetron HCl (Zofran Inj) 4 mg IVP Q4 PRN PRN Reason: Nausea/Vomiting Pyrazinamide (Pyrazinamide) 1,000 mg PO TTS [facility]; Protocol Last Admin: 07/21/18 09:06 Dose: 1,000 mg Pyridoxine HCl (Vitamin B6 50 Mg Tab) 50 mg PO DAILY [facility] Last Admin: 07/21/18 09:06 Dose: 50 mg Rifampin (Rifampin) 450 mg PO DAILY@1600 [facility]; Protocol Last Admin: 07/20/18 17:42 Dose: 450 mg Sevelamer Carbonate (Renvela) 800 mg PO TIDCC [facility] Last Admin: 07/21/18 13:13 Dose: 800 mg Tramadol HCl (Ultram) 25 mg PO TID PRN PRN Reason: Pain, moderate (4-7) Last Admin: 07/13/18 00:11 Dose: 25 mg - Labs Labs: 07/14/18 07:05 07/14/18 07:05 PT 12.0 SECONDS (9.7-12.2) 07/18/18 07:26 INR 1.1 07/18/18 07:26 APTT 40 SECONDS (21-34) H 07/18/18 07:26 - Head Exam Head Exam: ATRAUMATIC, NORMOCEPHALIC - ENT Exam ENT Exam: Mucous Membranes Moist - Neck Exam Neck Exam: Normal Inspection - Respiratory Exam Respiratory Exam: Clear to Ausculation Bilateral - Cardiovascular Exam Cardiovascular Exam: REGULAR RHYTHM - GI/Abdominal Exam GI & Abdominal Exam: Soft Assessment and Plan (1) Tuberculosis of pleura Assessment & Plan: Continue anti-TB meds Discontinue respiratory isolation Clinically improving and has been afebrile Continue hemodialysis Status: Acute (2) Pleural effusion Status: Acute (3) ESRD (end stage renal disease) Status: Acute
--- NOTE | 2018-07-21 18:54 | CP.PCM.PN ---
Subjective - Date & Time of Evaluation Date of Evaluation: 07/21/18 Time of Evaluation: 18:52 - Subjective Subjective: S: No fever. Eager to go home. Objective - Vital Signs/Intake and Output Vital Signs (last 24 hours): Temp Pulse Resp BP Pulse Ox 98.9 F 103 H 20 149/75 98 07/21/18 15:01 07/21/18 15:01 07/21/18 15:01 07/21/18 17:34 07/21/18 15:01 - Medications Medications: Current Medications Acetylcysteine (Acetylcysteine 20%) 4 ml INH RQ6 [facility] Last Admin: 07/21/18 13:30 Dose: Not Given Epoetin Milton (Procrit) 10,000 unit IV TTS [facility] Last Admin: 07/21/18 12:17 Dose: 10,000 unit Ethambutol HCl (Myambutol) 800 mg PO TTS [facility]; Protocol Last Admin: 07/21/18 09:06 Dose: 800 mg Isoniazid (Niazid) 300 mg PO DAILY@1600 [facility]; Protocol Last Admin: 07/21/18 17:31 Dose: 300 mg Ondansetron HCl (Zofran Inj) 4 mg IVP Q4 PRN PRN Reason: Nausea/Vomiting Pyrazinamide (Pyrazinamide) 1,000 mg PO TTS [facility]; Protocol Last Admin: 07/21/18 09:06 Dose: 1,000 mg Pyridoxine HCl (Vitamin B6 50 Mg Tab) 50 mg PO DAILY [facility] Last Admin: 07/21/18 09:06 Dose: 50 mg Rifampin (Rifampin) 450 mg PO DAILY@1600 [facility]; Protocol Last Admin: 07/21/18 17:31 Dose: 450 mg Sevelamer Carbonate (Renvela) 800 mg PO TIDCC [facility] Last Admin: 07/21/18 17:31 Dose: 800 mg Tramadol HCl (Ultram) 25 mg PO TID PRN PRN Reason: Pain, moderate (4-7) Last Admin: 07/13/18 00:11 Dose: 25 mg - Labs Labs: 07/14/18 07:05 07/14/18 07:05 PT 12.0 SECONDS (9.7-12.2) 07/18/18 07:26 INR 1.1 07/18/18 07:26 APTT 40 SECONDS (21-34) H 07/18/18 07:26 - Constitutional Appears: No Acute Distress - Head Exam Head Exam: NORMAL INSPECTION - Eye Exam Eye Exam: Normal appearance - ENT Exam ENT Exam: Normal Exam - Respiratory Exam Respiratory Exam: Decreased Breath Sounds - Cardiovascular Exam Cardiovascular Exam: REGULAR RHYTHM - GI/Abdominal Exam GI & Abdominal Exam: Soft - Rectal Exam Rectal Exam: Deferred - Extremities Exam Extremities Exam: Normal Inspection - Neurological Exam Neurological Exam: Alert Assessment and Plan (1) Pleural effusion Status: Acute (2) Tachycardia Status: Acute (3) ESRD (end stage renal disease) on dialysis Status: Chronic (4) HTN (hypertension) Status: Chronic (5) Fever Status: Acute (6) Tuberculosis of pleura Status: Acute - Assessment and Plan (Free Text) Assessment: A/P: Continue medications.
--- NOTE | 2018-07-21 19:02 | CP.PCM.PN ---
Subjective - Date & Time of Evaluation Date of Evaluation: 07/21/18 Time of Evaluation: 07:00 - Subjective Subjective: 47 yo female with ESRD on HD was admitted here with FUO and found to have pleurisy secondary to TB after a stormy hospital course with ICU admissions and HIV NURSE's - ultimately requiring VATS / pleural and lung Biopsy she has been on Anti TB meds for at least 3 weeks and has no cough or sputum production at this time She has no fever chills cough or SOB at this time she will continue her 4 TB meds as out pt and follow with Dr Carrera in clinic as well as Dr Allen pending sensitivities Objective - Vital Signs/Intake and Output Vital Signs (last 24 hours): Temp Pulse Resp BP Pulse Ox 98.9 F 103 H 20 149/75 98 07/21/18 15:01 07/21/18 15:01 07/21/18 15:01 07/21/18 17:34 07/21/18 15:01 - Medications Medications: Current Medications Acetylcysteine (Acetylcysteine 20%) 4 ml INH RQ6 [facility] Last Admin: 07/21/18 13:30 Dose: Not Given Epoetin [place] (Procrit) 10,000 unit IV TTS [facility] Last Admin: 07/21/18 12:17 Dose: 10,000 unit Ethambutol HCl (Myambutol) 800 mg PO TTS [facility]; Protocol Last Admin: 07/21/18 09:06 Dose: 800 mg Isoniazid (Niazid) 300 mg PO DAILY@1600 [facility]; Protocol Last Admin: 07/21/18 17:31 Dose: 300 mg Ondansetron HCl (Zofran Inj) 4 mg IVP Q4 PRN PRN Reason: Nausea/Vomiting Pyrazinamide (Pyrazinamide) 1,000 mg PO TTS [facility]; Protocol Last Admin: 07/21/18 09:06 Dose: 1,000 mg Pyridoxine HCl (Vitamin B6 50 Mg Tab) 50 mg PO DAILY [facility] Last Admin: 07/21/18 09:06 Dose: 50 mg Rifampin (Rifampin) 450 mg PO DAILY@1600 [facility]; Protocol Last Admin: 07/21/18 17:31 Dose: 450 mg Sevelamer Carbonate (Renvela) 800 mg PO TIDCC [facility] Last Admin: 07/21/18 17:31 Dose: 800 mg Tramadol HCl (Ultram) 25 mg PO TID PRN PRN Reason: Pain, moderate (4-7) Last Admin: 07/13/18 00:11 Dose: 25 mg - Labs Labs: 07/14/18 07:05 07/14/18 07:05 PT 12.0 SECONDS (9.7-12.2) 07/18/18 07:26 INR 1.1 07/18/18 07:26 APTT 40 SECONDS (21-34) H 07/18/18 07:26 - Constitutional Appears: Well, Non-toxic, No Acute Distress - Head Exam Head Exam: ATRAUMATIC, NORMAL INSPECTION, NORMOCEPHALIC - Eye Exam Eye Exam: EOMI, Normal appearance, PERRL Pupil Exam: NORMAL ACCOMODATION, PERRL - ENT Exam ENT Exam: Mucous Membranes Moist, Normal Exam - Neck Exam Neck Exam: Full ROM, Normal Inspection. absent: Lymphadenopathy - Respiratory Exam Respiratory Exam: Clear to Ausculation Bilateral, NORMAL BREATHING PATTERN - Cardiovascular Exam Cardiovascular Exam: REGULAR RHYTHM, +S1, +S2. absent: Murmur - GI/Abdominal Exam GI & Abdominal Exam: Soft, Normal Bowel Sounds. absent: Tenderness - Rectal Exam Rectal Exam: Deferred - Exam Exam: NORMAL INSPECTION - Extremities Exam Extremities Exam: Full ROM, Normal Capillary Refill, Normal Inspection. absent: Joint Swelling, Pedal Edema - Back Exam Back Exam: NORMAL INSPECTION - Neurological Exam Neurological Exam: Alert, Awake, CN II-XII Intact, Normal Gait, Oriented x3 - Psychiatric Exam Psychiatric exam: Normal Affect, Normal Mood - Skin Skin Exam: Dry, Intact, Normal Color, Warm Assessment and Plan (1) ESRD (end stage renal disease) Status: Acute (2) Pleural effusion Status: Acute (3) Fever Status: Acute (4) Hypertensive chronic kidney disease with stage 5 chronic kidney disease or end stage renal disease Status: Acute (5) Pneumonia Status: Acute (6) ESRD (end stage renal disease) on dialysis Status: Chronic - Assessment and Plan (Free Text) Assessment: 47 yo female with ESRD on HD was admitted here with FUO and found to have pleurisy secondary to TB after a stormy hospital course with ICU admissions and HIV NURSE's - ultimately requiring VATS / pleural and lung Biopsy she has been on Anti TB meds for at least 3 weeks and has no cough or sputum production at this time She has no fever chills cough or SOB at this time she will continue her 4 TB meds as out pt and follow with Dr Carrera in clinic as well as Dr Allen pending sensitivities
[2018-07-22] MEDS: Acetylcysteine 20% Inhal Soln (4ml) INH SCH (01:32)
[2018-07-22 02:09] VITALS: PULSE 98
[2018-07-22 08:28] VITALS: BP 140/81; TEMP 98.1; O2SAT 96
--- NOTE | 2018-07-22 08:42 | CP.PCM.PN ---
Subjective - Date & Time of Evaluation Date of Evaluation: 07/22/18 Time of Evaluation: 08:25 - Subjective Subjective: Pt feels well; Still on isolation No CP, no SOB, no edema, no cough, no diarrhea, no n/v Objective - Vital Signs/Intake and Output Vital Signs (last 24 hours): Temp Pulse Resp BP Pulse Ox 98.1 F 98 H 20 140/81 96 07/22/18 07:30 07/22/18 07:30 07/22/18 07:30 07/22/18 07:30 07/22/18 07:30 - Medications Medications: Current Medications Acetylcysteine (Acetylcysteine 20%) 4 ml INH RQ6 [facility] Last Admin: 07/22/18 01:32 Dose: Not Given Epoetin [place] (Procrit) 10,000 unit IV TTS [facility] Ethambutol HCl (Myambutol) 800 mg PO TTS [facility]; Protocol Last Admin: 07/21/18 09:06 Dose: 800 mg Ondansetron HCl (Zofran Inj) 4 mg IVP Q4 PRN PRN Reason: Nausea/Vomiting Pyrazinamide (Pyrazinamide) 1,000 mg PO TTS [facility]; Protocol Last Admin: 07/21/18 09:06 Dose: 1,000 mg Pyridoxine HCl (Vitamin B6 50 Mg Tab) 50 mg PO DAILY [facility] Last Admin: 07/21/18 09:06 Dose: 50 mg Sevelamer Carbonate (Renvela) 800 mg PO TIDCC [facility] Last Admin: 07/21/18 17:31 Dose: 800 mg Tramadol HCl (Ultram) 25 mg PO TID PRN PRN Reason: Pain, moderate (4-7) Last Admin: 07/13/18 00:11 Dose: 25 mg - Labs Labs: 07/14/18 07:05 07/14/18 07:05 PT 12.0 SECONDS (9.7-12.2) 07/18/18 07:26 INR 1.1 07/18/18 07:26 APTT 40 SECONDS (21-34) H 07/18/18 07:26 - Constitutional Appears: No Acute Distress - Eye Exam Eye Exam: Normal appearance - ENT Exam ENT Exam: Mucous Membranes Moist - Neck Exam Neck Exam: Full ROM. absent: Lymphadenopathy - Respiratory Exam Respiratory Exam: Decreased Breath Sounds. absent: Rhonchi, Wheezes - Cardiovascular Exam Cardiovascular Exam: JVD, +S1, +S2. absent: Gallop, REGULAR RHYTHM, Murmur - GI/Abdominal Exam GI & Abdominal Exam: Soft - Extremities Exam Extremities Exam: Full ROM, Normal Capillary Refill. absent: Calf Tenderness, Joint Swelling, Pedal Edema Assessment and Plan - Assessment and Plan (Free Text) Assessment: large pleural effusion s/p CT; TB in pleura HTN, ESRD cont RIPE Restart Amlodipine
--- NOTE | 2018-07-22 09:47 | CP.PCM.PN ---
Subjective - Date & Time of Evaluation Date of Evaluation: 07/22/18 Time of Evaluation: 08:00 - Subjective Subjective: Patient seen and examined Sitting comfortably in no distress Afebrile Denies cough, denies chest pain, denies shortness of breath Status post hemodialysis yesterday Objective - Vital Signs/Intake and Output Vital Signs (last 24 hours): Temp Pulse Resp BP Pulse Ox 98.1 F 98 H 20 140/81 96 07/22/18 07:30 07/22/18 07:30 07/22/18 07:30 07/22/18 07:30 07/22/18 07:30 - Medications Medications: Current Medications Acetylcysteine (Acetylcysteine 20%) 4 ml INH RQ6 [facility] Last Admin: 07/22/18 01:32 Dose: Not Given Amlodipine Besylate (Norvasc) 2.5 mg PO DAILY [facility] Last Admin: 07/22/18 09:10 Dose: 2.5 mg Epoetin [place] (Procrit) 10,000 unit IV TTS [facility] Ethambutol HCl (Myambutol) 800 mg PO TTS [facility]; Protocol Last Admin: 07/21/18 09:06 Dose: 800 mg Ondansetron HCl (Zofran Inj) 4 mg IVP Q4 PRN PRN Reason: Nausea/Vomiting Pyrazinamide (Pyrazinamide) 1,000 mg PO TTS [facility]; Protocol Last Admin: 07/21/18 09:06 Dose: 1,000 mg Pyridoxine HCl (Vitamin B6 50 Mg Tab) 50 mg PO DAILY [facility] Last Admin: 07/22/18 09:10 Dose: 50 mg Sevelamer Carbonate (Renvela) 800 mg PO TIDCC [facility] Last Admin: 07/22/18 09:10 Dose: 800 mg Tramadol HCl (Ultram) 25 mg PO TID PRN PRN Reason: Pain, moderate (4-7) Last Admin: 07/13/18 00:11 Dose: 25 mg - Labs Labs: 07/14/18 07:05 07/14/18 07:05 PT 12.0 SECONDS (9.7-12.2) 07/18/18 07:26 INR 1.1 07/18/18 07:26 APTT 40 SECONDS (21-34) H 07/18/18 07:26 - Head Exam Head Exam: ATRAUMATIC, NORMOCEPHALIC - Eye Exam Eye Exam: Normal appearance - ENT Exam ENT Exam: Mucous Membranes Moist - Neck Exam Neck Exam: Normal Inspection - Respiratory Exam Respiratory Exam: Clear to Ausculation Bilateral - Cardiovascular Exam Cardiovascular Exam: REGULAR RHYTHM - GI/Abdominal Exam GI & Abdominal Exam: Soft, Normal Bowel Sounds Assessment and Plan (1) Tuberculosis of pleura Assessment & Plan: Discharge home on anti-TB meds Follow-up in the office Continue hemodialysis Case discussed with infectious disease Status: Acute (2) Pleural effusion Status: Acute (3) ESRD (end stage renal disease) Status: Acute
[2018-07-23] MEDS ORDERED: Epoetin Alfa 10,000 unit/ml Dialysis IV SCH (10:00)
--- NOTE | 2018-08-08 08:16 | CP.PCM.DIS ---
Provider - Provider Date of Admission: 06/25/18 13:12 CC: short of breath 47 y/o female with ESRD, HTN and latent TB. Patient recently admitted for large pleural effusion and had Bx. Pt place on antiTB and sent home pending culture, Pt had recurrence of SOB and effusion - readmitted Attending physician: Aston Briones MD Consults: 06/25/18 13:15 Nephrology Consult Stat Comment: Consulting Provider: Cheikh Granados Consulting Physician: Cheikh Granados Reason for Consult: sob Pulmonology Consult Routine Comment: Consulting Provider: Zbigniew Allen Consulting Physician: Zbigniew Allen Reason for Consult: pleural effusion 06/25/18 22:45 Cardiology Consult Routine Comment: Consulting Provider: Oleg Ascencio Consulting Physician: Oleg Ascencio Reason for Consult: tachycardia 06/26/18 17:11 Physician Consult Routine Comment: Consulting Provider: Vignesh Awan Consulting Physician: Vignesh Awan Reason for Consult: plerual effusion 07/05/18 15:28 Critical Care Consult Routine Comment: please avulate for icu admission postop Consulting Provider: Zbigniew Allen Consulting Physician: Zbigniew Allen Reason for Consult: postop 07/10/18 18:55 Wound Care [Nursing Referral for Wound Care] Routine Comment: Physician Instructions: Reason For Exam: Sacral skin tear Time Spent in preparation of Discharge (in minutes): 20 Hospital Course - Lab Results Lab Results: Micro Results 07/05/18 15:11 Other: Please Indicate Mycobacterial Culture - Preliminary 06/27/18 17:06 Other: Please Indicate Mycobacterial Culture - Preliminary 07/05/18 13:00 Lung Fungal Culture - Preliminary NO FUNGUS GROWTH IN 3 WEEKS. 07/05/18 15:33 Other: Please Indicate Fungal Culture - Preliminary NO FUNGUS GROWTH IN 3 WEEKS. 07/05/18 15:17 Other: Please Indicate Mycobacterial Culture - Preliminary 07/05/18 15:34 Other: Please Indicate Mycobacterial Culture - Preliminary 07/05/18 13:00 Pleural Fluid Gram Stain - Final 07/05/18 13:00 Pleural Fluid Body Fluid Culture - Final No growth. 07/05/18 13:00 Other: Please Indicate Gram Stain - Final 07/05/18 13:00 Other: Please Indicate Tissue Culture - Final No growth. 07/05/18 15:31 Lung Gram Stain - Final 07/05/18 15:31 Lung Tissue Culture - Final No growth. 07/07/18 15:57 Nose MRSA Culture - Final MRSA NOT DETECTED 07/05/18 13:00 Pleural Fluid Anaerobic Culture - Final NO ANAEROBES ISOLATED. 07/05/18 13:00 Other: Please Indicate Anaerobic Culture - Final NO ANAEROBES ISOLATED. 07/05/18 15:32 Other: Please Indicate Anaerobic Culture - Final NO ANAEROBES ISOLATED. 07/06/18 02:51 Naris MRSA Culture (Admit) - Final MRSA NOT DETECTED 07/04/18 12:53 Urine,Clean Catch Urine Culture - Final Gram Positive Cocci 07/05/18 13:00 Pleural Fluid Fungal Smear - Final 06/29/18 17:00 Blood-Venous Blood Culture - Final NO GROWTH AFTER 5 DAYS 06/29/18 17:00 Blood-Venous Gram Stain - Final TEST NOT PERFORMED 06/29/18 17:30 Blood-Venous Blood Culture - Final NO GROWTH AFTER 5 DAYS 06/29/18 17:30 Blood-Venous Gram Stain - Final TEST NOT PERFORMED 07/01/18 18:26 Nose MRSA Culture - Final MRSA NOT DETECTED 06/27/18 13:24 Pleural Fluid Gram Stain - Final 06/27/18 13:24 Pleural Fluid Body Fluid Culture - Final No growth. 06/26/18 03:51 Blood Blood Culture - Final NO GROWTH AFTER 5 DAYS 06/26/18 03:51 Blood Gram Stain - Final TEST NOT PERFORMED 06/26/18 03:51 Blood Blood Culture - Final NO GROWTH AFTER 5 DAYS 06/26/18 03:51 Blood Gram Stain - Final TEST NOT PERFORMED 06/25/18 12:30 Blood Blood Culture - Final NO GROWTH AFTER 5 DAYS 06/25/18 12:30 Blood Gram Stain - Final TEST NOT PERFORMED 06/25/18 12:13 Blood Blood Culture - Final NO GROWTH AFTER 5 DAYS 06/25/18 12:13 Blood Gram Stain - Final TEST NOT PERFORMED 06/26/18 03:51 Naris MRSA Culture (Admit) - Final MRSA NOT DETECTED Most Recent Lab Values WBC 3.6 K/uL (4.8-10.8) L 07/14/18 07:05 RBC 2.75 Mil/uL (3.80-5.20) L 07/14/18 07:05 Hgb 9.0 g/dL (11.0-16.0) L 07/14/18 07:05 Hct 28.1 % (34.0-47.0) L 07/14/18 07:05 MCV 102.1 fL (81.0-99.0) H 07/14/18 07:05 MCH 32.7 pg (27.0-31.0) H 07/14/18 07:05 MCHC 32.0 g/dL (33.0-37.0) L 07/14/18 07:05 RDW 19.3 % (11.5-14.5) H 07/14/18 07:05 Plt Count 121 K/uL (130-400) L 07/14/18 07:05 MPV 8.8 fL (7.2-11.7) 07/14/18 07:05 Neut % (Auto) 59.6 % (50.0-75.0) 07/12/18 07:34 Lymph % (Auto) 13.7 % (20.0-40.0) L 07/12/18 07:34 [place] % (Auto) 10.1 % (0.0-10.0) H 07/12/18 07:34 Eos % (Auto) 15.5 % (0.0-4.0) H 07/12/18 07:34 Baso % (Auto) 1.1 % (0.0-2.0) 07/12/18 07:34 Neut # (Auto) 1.8 K/uL (1.8-7.0) 07/12/18 07:34 Lymph # (Auto) 0.4 K/uL (1.0-4.3) L 07/12/18 07:34 [place] # (Auto) 0.3 K/uL (0.0-0.8) 07/12/18 07:34 Eos # (Auto) 0.5 K/uL (0.0-0.7) 07/12/18 07:34 Baso # (Auto) 0.0 K/uL (0.0-0.2) 07/12/18 07:34 Neutrophils % (Manual) 78 % (50-75) H 07/09/18 10:19 Band Neutrophils % 5 % (0-2) H 07/09/18 10:19 Lymphocytes % (Manual) 9 % (20-40) L 07/09/18 10:19 Monocytes % (Manual) 8 % (0-10) 07/09/18 10:19 Differential Comment 07/14/18 07:05 Platelet Estimate Slightly decreased (NORMAL) L 07/09/18 10:19 Poikilocytosis (manual Slight 07/09/18 10:19 Anisocytosis (manual) Slight 07/09/18 10:19 Macrocytosis (manual) Slight 07/09/18 10:19 Ovalocytes Slight 07/09/18 10:19 ESR 103 mm/hr (0-20) H 06/30/18 14:54 PT 12.0 SECONDS (9.7-12.2) 07/18/18 07:26 INR 1.1 07/18/18 07:26 APTT 40 SECONDS (21-34) H 07/18/18 07:26 Puncture Site Rb 07/06/18 05:24 pCO2 36 mm/Hg (35-45) 07/06/18 05:24 pO2 196 mm/Hg (80-100) H 07/06/18 05:24 HCO3 21.9 mmol/L (21-28) 07/06/18 05:24 ABG pH 7.37 (7.35-7.45) 07/06/18 05:24 ABG Total CO2 21.9 mmol/L (22-28) L 07/06/18 05:24 ABG O2 Saturation 99.2 % (95-98) H 07/06/18 05:24 ABG Base Excess -3.9 mmol/L (-2.0-3.0) L 07/06/18 05:24 ABG Hemoglobin 12.4 g/dL (11.7-17.4) 07/06/18 05:24 ABG Carboxyhemoglobin 1.3 % (0.5-1.5) 07/06/18 05:24 POC ABG HHb (Measured) 0.8 % (0.0-5.0) 07/06/18 05:24 ABG Methemoglobin 0.9 % (0.0-3.0) 07/06/18 05:24 Yang Test Na 07/06/18 05:24 ABG Potassium 4.2 mmol/L (3.6-5.2) 07/05/18 16:54 A-a O2 Difference 44.0 mm/Hg 07/06/18 05:24 Respiratory Index 0.2 07/06/18 05:24 Hgb O2 Saturation 97.0 % (95.0-98.0) 07/06/18 05:24 Sodium 135.0 mmol/l (132-148) 07/05/18 16:54 Chloride 107.0 mmol/L (98-107) 07/05/18 16:54 Glucose 92 mg/dl (65-105) 07/05/18 16:54 Lactate 1.0 mmol/L (0.7-2.1) 07/05/18 16:54 Vent Mode Prvc 07/06/18 05:24 Mechanical Rate 12 07/06/18 05:24 FiO2 40.0 % 07/06/18 05:24 Tidal Volume 400 07/06/18 05:24 PEEP 5 07/06/18 05:24 Crit Value Called To Dr briones 06/25/18 23:00 [facility]:00 Crit Value Read Back Y 06/25/18 23:00 Blood Gas Notified Time 231106/25/18 23:00 Sodium 136 mmol/L (132-148) 07/14/18 07:05 Potassium 4.3 mmol/L (3.6-5.2) 07/14/18 07:05 Chloride 98 mmol/L (98-107) 07/14/18 07:05 Carbon Dioxide 26 mmol/L (22-30) 07/14/18 07:05 Anion Gap 16 (10-20) 07/14/18 07:05 BUN 28 mg/dL (7-17) H 07/14/18 07:05 Creatinine 5.4 mg/dL (0.7-1.2) H 07/14/18 07:05 Est GFR ( Amer) 10 07/14/18 07:05 Est GFR (Non-Af Amer) 8 07/14/18 07:05 POC Glucose (mg/dL) 78 mg/dL (65-110) 07/20/18 06:26 Random Glucose 75 mg/dL (65-105) 07/14/18 07:05 Lactic Acid 0.9 mmol/L (0.7-2.1) 06/26/18 03:51 Calcium 8.9 mg/dl (8.6-10.4) 07/14/18 07:05 Phosphorus 4.8 mg/dL (2.5-4.5) H 07/14/18 07:05 Magnesium 1.9 mg/dL (1.6-2.3) 07/12/18 07:34 % Saturation 70 (20-55) H 07/14/18 07:05 Ferritin 1180.0 ng/mL 07/14/18 07:05 Total Bilirubin 2.0 mg/dL (0.2-1.3) H 07/14/18 07:05 Direct Bilirubin 1.2 mg/dL (0.0-0.4) H 07/11/18 07:55 AST 40 U/L (14-36) H D 07/14/18 07:05 ALT 37 U/L (9-52) 07/14/18 07:05 Alkaline Phosphatase 124 U/L (38-126) 07/14/18 07:05 Troponin I 0.0580 ng/mL (0.00-0.120) 06/25/18 12:13 C-Reactive Protein 69.50 mg/L (0.0-9.9) H 06/30/18 14:54 NT-Pro-B Natriuret Pep 01459 pg/mL (0-450) H 06/25/18 12:13 Total Protein 7.1 g/dL (6.3-8.3) 07/14/18 07:05 Albumin 3.0 g/dL (3.5-5.0) L 07/14/18 07:05 Globulin 4.2 gm/dL (2.2-3.9) H 07/14/18 07:05 Albumin/Globulin Ratio 0.7 (1.0-2.1) L 07/14/18 07:05 Angiotensin Convert Enz 55 U/L (9-67) 06/27/18 06:28 25-OH Vitamin D Total 14.1 NG/ML (30.0-100.0) L 06/27/18 06:28 Procalcitonin 5.39 NG/ML (0.19-0.49) H 06/29/18 14:48 Calcium (PTH Intact) 10.1 mg/dL (8.6-10.2) 06/27/18 06:28 PTH w/Ion &Tot Calcium 35 pg/mL (14-64) 06/27/18 06:28 PTH Related Protein 80 pg/mL (14-27) H 06/27/18 06:28 Arterial Blood Potassium 4.2 mmol/L (3.6-5.2) 07/05/18 16:54 Fluid Source Pleural 06/27/18 13:24 Fluid Appearance Sl cloudy (CLEAR) 06/27/18 13:24 Fluid WBC 564.0 /mm3 (0.0-300.0) H 06/27/18 13:24 Fluid RBC 376.0 /mm3 (0.0-0.0) H 06/27/18 13:24 Fluid Tot Cell Count 100 (0-0) H 06/27/18 13:24 Fluid Neutrophils 7.0 % (0-0) H 06/27/18 13:24 Fluid Lymphocytes 86.0 % (0-0) H 06/27/18 13:24 Fld Monocyte/Macrophag 7 % (0-0) H 06/27/18 13:24 Fluid Albumin 2.6 g/dL 06/27/18 13:24 Fluid Comment 06/27/18 13:24 Pleural Total Protein 6.4 g/dL 06/27/18 13:24 Pleural LDH 180 U/L 06/27/18 13:24 Pleural Glucose 60 mg/dL 06/27/18 13:24 Pleural Amylase 68 U/L 06/27/18 13:24 Pleural Lipase 24.0 U/L (<10) H 06/27/18 13:24 Pleural Cholesterol 94 mg/dL 06/27/18 13:24 Pleural Triglycerides 78 mg/dL 06/27/18 13:24 Pleur Adenosine Deamin 36.2 U/L (<9.2) H 06/27/18 13:24 Pleural Fluid CEA 2.5 ng/mL (<10.0) 06/27/18 13:24 Rheumatoid Factor IgG 6 U (<=6) 06/27/18 14:47 Rheumatoid Factor IgA <5 U (<=6) 06/27/18 14:47 Rheumatoid Factor IgM <5 U (<=6) 06/27/18 14:47 IBAN Screen Negative (Negative) 06/29/18 14:48 ANCA Screen Negative (NEGATIVE) 06/27/18 14:47 c-ANCA Titer TNP 06/27/18 14:47 Proteinase 3 (PR3) <1.0 AI (<1.0) 06/27/18 14:47 p-ANCA Titer TNP 06/27/18 14:47 Atypical p-ANCA Titer TNP 06/27/18 14:47 Myeloperoxidase Ab <1.0 AI (<1.0) 06/27/18 14:47 C. difficile Ag & Toxin Negative (NEGATIVE) 06/28/18 18:18 Hepatitis A IgM Ab Negative (NEGATIVE) 07/11/18 07:55 Hep Bs Antigen Negative (NEGATIVE) 07/11/18 07:55 Hep B Core IgM Ab Negative (NEGATIVE) 07/11/18 07:55 Hepatitis C Antibody Negative (NEGATIVE) 07/11/18 07:55 Influenza Typ A,B (EIA) Negative for flu a/b (NEGATIVE) 06/28/18 18:18 Blood Type O POSITIVE 07/04/18 11:29 Antibody Screen Negative 07/04/18 11:29 - Hospital Course Hospital Course: Pt readmitted and but6 Bx showed non caseating granuloma. Pt work up for sarcoid but not place on steroid. While in hospital - TB culture was (+) TB. State/ TB clinic got involved and pt was place on isolation despite can not produce sputum and on (4) antiTB meds. Bonchoscopy was contemplated for social indication/ satisfy TB clinic. However pulmonary defer it and was discharge improve. Discharge Exam - Head Exam Head Exam: ATRAUMATIC, NORMOCEPHALIC - Eye Exam Eye Exam: Normal appearance - ENT Exam ENT Exam: Mucous Membranes Moist - Respiratory Exam Respiratory Exam: Decreased Breath Sounds. absent: Rales, Rhonchi, Wheezes - Cardiovascular Exam Cardiovascular Exam: REGULAR RHYTHM, +S1, +S2. absent: Gallop, JVD, Systolic Murmur - GI/Abdominal Exam GI & Abdominal Exam: Soft. absent: Guarding, Tenderness - Extremities Exam Extremities exam: full ROM, normal capillary refill, pedal pulses present Discharge Plan - Follow Up Plan Condition: FAIR Disposition: HOME/ ROUTINE Instructions: High Blood Pressure (DC), Pleural Effusion (DC), Tuberculosis (DC), Ethambutol, Rifampin, Isoniazid, and Pyrazinamide, End Stage Kidney Disease (DC), Dialysis and Diet, Dyspnea (GEN), Fever in Adults (GEN), Renal Failure Diet (DC) Referrals: Zbigniew Allen MD [Staff Provider] - Aston Briones MD [Staff Provider] - Cheikh Granados MD [Staff Provider] - Vignesh Awan MD [Staff Provider] - Oleg Ascencio MD [Staff Provider] -
== END 2018-07-22 12:54 | disposition home or self-care (01) | DRG 163 ==
LOC: C.ER 11:10 → C.9E 13:12 → C.6T 13:30 → C.9I 06-26 00:43 → C.6T 07-01 16:52 → C.9I 07-05 15:44 → C.6T 07-07 14:53
PROVIDERS: ADMIT Internal Medicine; ATTEND Internal Medicine
PROC: 5A1D70Z Performance of Urinary Filtration, Intermittent, Less than 6 Hours Per Day (ICD-10-PCS; 2018-06-26)
PROC: 5A09457 Assistance with Respiratory Ventilation, 24-96 Consecutive Hours, Continuous Positive Airway Pressure (ICD-10-PCS; 2018-06-26)
PROC: 0W9930Z Drainage of Right Pleural Cavity with Drainage Device, Percutaneous Approach (ICD-10-PCS; 2018-06-27)
PROC: 0BBN4ZX Excision of Right Pleura, Percutaneous Endoscopic Approach, Diagnostic (ICD-10-PCS; 2018-07-05)
PROC: 0W9930Z Drainage of Right Pleural Cavity with Drainage Device, Percutaneous Approach (ICD-10-PCS; 2018-07-05)
PROC: 0BH17EZ Insertion of Endotracheal Airway into Trachea, Via Natural or Artificial Opening (ICD-10-PCS; 2018-07-05)
PROC: 5A1945Z Respiratory Ventilation, 24-96 Consecutive Hours (ICD-10-PCS; 2018-07-05)
PROC: 0BTF4ZZ Resection of Right Lower Lung Lobe, Percutaneous Endoscopic Approach (ICD-10-PCS; principal; 2018-07-05 13:00)
DX: A15.9 Respiratory tuberculosis unspecified (principal); J96.90 Respiratory failure, unspecified, unspecified whether with hypoxia or hypercapnia; N18.6 End stage renal disease; I12.0 Hypertensive chronic kidney disease with stage 5 chronic kidney disease or end stage renal disease; I47.1 Supraventricular tachycardia; J98.19 Other pulmonary collapse; J18.9 Pneumonia, unspecified organism; J90 Pleural effusion, not elsewhere classified; D86.9 Sarcoidosis, unspecified; D63.1 Anemia in chronic kidney disease; E83.52 Hypercalcemia; E11.22 Type 2 diabetes mellitus with diabetic chronic kidney disease; Z99.2 Dependence on renal dialysis; E11.21 Type 2 diabetes mellitus with diabetic nephropathy

== ENCOUNTER 2018-07-25 10:00 | Inpatient (IN) | payer OTHER ==
[2018-07-25 10:32] VITALS: BMI 22.6
--- NOTE | 2018-07-25 10:51 | C.PDOC ---
History Of Present Illness 47 y/o female,w/PMhx of ESRD, presents to the ER requesting dialysis. Patient states that she was recently admitted in [facility] ([facility]) and she was diagnosed with TB in pleura. At the time, they were unable to induce AFB sputum and she was started on TB medications. She states that has dialysis on Tuesdays, , and Saturdays. She notes that she went for dialysis appointment 2 days ago. However, she was not able to undergo dialysis because they were requesting negative AFB sputum. Denies having fever,chills, CP, and SOB. Of note, patient is tachycardic and hypertensive in the ER. Time Seen by Provider: 07/25/18 10:45 Chief Complaint (Nursing): Shortness Of Breath History Per: Patient History/Exam Limitations: no limitations Past Medical History Reviewed: Historical Data, Nursing Documentation, Vital Signs Vital Signs: Last Vital Signs Temp 97.1 F L 07/25/18 10:33 Pulse 121 H 07/25/18 10:33 Resp 24 07/25/18 10:33 BP 172/106 H 07/25/18 10:33 Pulse Ox 97 07/25/18 10:33 - Medical History PMH: Asthma, HTN, End Stage Renal Disease, Chronic Kidney Disease Denies: Kidney Stones Other Surgeries: Hx of surgeries - [facility] (06/25/18) ASSISTANCE WITH RESPIRATORY VENTILATION, 24-96 HRS, CPAP (06/25/18) BYPASS L BRACH ART TO UP ARM VEIN W AUTOL ART, OPEN (04/07/18) DRAINAGE OF L PLEURAL CAV WITH DRAIN DEV, PERC ENDO APPROACH (06/09/18) DRAINAGE OF R PLEURAL CAV WITH DRAIN DEV, PERC APPROACH (06/25/18) EXCISION OF LEFT PLEURA, PERC ENDO APPROACH, DIAGN (06/09/18) EXCISION OF MEDIASTINUM, PERC ENDO APPROACH, DIAGN (06/09/18) EXCISION OF RIGHT PLEURA, PERC ENDO APPROACH, DIAGN (06/25/18) INSERT OF INFUSION DEV INTO PERITON CAV, PERC ENDO APPROACH (05/27/17) INSERTION OF ENDOTRACHEAL AIRWAY INTO TRACHEA, VIA OPENING (06/25/18) INSERTION OF INFUSION DEV INTO SUP VENA CAVA, PERC APPROACH (04/07/18) INTRODUCE LOCAL ANESTH IN PERIPH NRV, PLEXI, PERC (06/09/18) RELEASE LEFT PLEURA, PERCUTANEOUS ENDOSCOPIC APPROACH (06/09/18) RELEASE PERITONEUM, PERCUTANEOUS ENDOSCOPIC APPROACH (04/07/18) REMOVAL OF INFUSION DEVICE FROM LOWER VEIN, PERC APPROACH (04/07/18) RESECTION OF RIGHT LOWER LUNG LOBE, PERC ENDO APPROACH (06/25/18) RESPIRATORY VENTILATION, 24-96 CONSECUTIVE HOURS (06/25/18) Family History: States: No Known Family Hx - Social History Hx Alcohol Use: No Hx Substance Use: No - Immunization History Hx Tetanus Toxoid Vaccination: Yes Hx Influenza Vaccination: Yes Hx Pneumococcal Vaccination: Yes Review Of Systems Except As Marked, All Systems Reviewed And Found Negative. Constitutional: Negative for: Fever, Chills Cardiovascular: Negative for: Chest Pain Respiratory: Negative for: Shortness of Breath Gastrointestinal: Negative for: Nausea, Vomiting, Abdominal Pain Physical Exam - Physical Exam Appears: Non-toxic, No Acute Distress, Other (awake,alert,cooperative) Skin: Normal Color, Warm, Dry Head: Atraumatic, Normacephalic Eye(s): bilateral: Normal Inspection Nose: Normal Oral Mucosa: Moist Neck: Supple Chest: Symmetrical Cardiovascular: Rhythm Regular Respiratory: Normal Breath Sounds, No Rales, No Rhonchi, No Wheezing Gastrointestinal/Abdominal: Normal Exam, Soft, No Tenderness, No Guarding, No Rebound Neurological/Psych: Oriented x3, Normal Speech ED Course And Treatment - Laboratory Results Result Diagrams: 07/25/18 11:11 07/25/18 11:11 O2 Sat by Pulse Oximetry: 97 (RA) Pulse Ox Interpretation: Normal Medical Decision Making Medical Decision Making: Plan: --Labs --ECG --CXR Updates: Dhara Lai from Infection Control is aware of patient. She notes that she does not need to be in isolation because patient is being treated for TB. Disposition Discussed With : Florentino Carrera - Disposition Disposition: HOSPITALIZED Disposition Time: 12:42 Condition: GUARDED Forms: [facility] (Finnish) - POA Present On Arrival: None - Clinical Impression Clinical Impression: Dyspnea, ESRD (end stage renal disease) - Scribe Statement The provider has reviewed the documentation as recorded by the Scribe Angelito Joel Provider Attestation: All medical record entries made by the Scribe were at my direction and personally dictated by me. I have reviewed the chart and agree that the record accurately reflects my personal performance of the history, physical exam, medical decision making, and the department course for this patient. I have also personally directed, reviewed, and agree with the discharge instructions and disposition. Decision To Admit - Pt Status Changed To: Hospital Disposition Of: Observation - . Bed Request Type: Telemetry Admitting Physician: Florentino aCrrera Patient Diagnosis: Dyspnea, ESRD (end stage renal disease)
[2018-07-25 11:36] LABS: BASO % 1.6 % (0.0-2.0); EOS # 0.1 K/uL (0.0-0.7); EOS % 6.3 % (0.0-4.0); HEMOGLOBIN 9.8 g/dL (11.0-16.0); LYMPH # 0.4 K/uL (1.0-4.3); LYMPH % 16.5 % (20.0-40.0); MEAN CORPUSCULAR HEMOGLOBIN 33.7 pg (27.0-31.0); MEAN CORPUSCULAR HGB CONC 31.9 g/dL (33.0-37.0); MEAN PLATELET VOLUME 8.3 fL (7.2-11.7); MONO # 0.2 K/uL (0.0-0.8); MONO % 10.3 % (0.0-10.0); NEUT # 1.6 K/uL (1.8-7.0); NEUT % 65.3 % (50.0-75.0); RBC 2.91 Mil/uL (3.80-5.20); RED CELL DISTRIBUTION WIDTH 22.8 % (11.5-14.5); WHITE BLOOD COUNT 2.4 K/uL (4.8-10.8)
[2018-07-25 11:38] LABS: MEAN CELL VOLUME 105.4 fL (81.0-99.0)
--- NOTE | 2018-07-25 11:43 | CP.PCM.CON ---
History of Present Illness - History of Present Illness History of Present Illness: 47 y/o FF admitted for documentation of negative afb. Outpt dialysiswould not admit patient without documentation of neg afb Recent dx TB pleurisy; on treatment. s/p VATS On dialysis for chronic GN x 1 year Failed CCPD treatment due to adhesions h/o HTN Review of Systems - Constitutional Constitutional: Fatigue, Weight Loss, Weakness - EENT Eyes: absent: As Per HPI, Blind Spots, Blurred Vision, Change in Vision, Decreased Night Vision, Diplopia, Discharge, Dry Eye, Exophthalmos, Floaters, Irritation, Itchy Eyes, Loss of Peripheral Vision, Pain, Photophobia, Requires Corrective Lenses, Sees Flashes, Spots in Vision, Tunnel Vision, Other Visual Disturbances, Loss of Vision, Other Ears: absent: As Per HPI, Decreased Hearing, Ear Discharge, Ear Pain, Tinnitus, Abnormal Hearing, Disequilibrium, Dizziness, Other Nose/Mouth/Throat: absent: As Per HPI, Epistaxis, Nasal Congestion, Nasal Discharge, Nasal Obstruction, Nasal Trauma, Nose Pain, Post Nasal Drip, Sinus Pain, Sinus Pressure, Bleeding Gums, Change in Voice, Dental Pain, Dry Mouth, Dysphagia, Halitosis, Hoarsness, Lip Swelling, Mouth Lesions, Mouth Pain, Odynophagia, Sore Throat, Throat Swelling, Tongue Swelling, Facial Pain, Neck Pain, Neck Mass, Other - Cardiovascular Cardiovascular: Dyspnea on Exertion - Respiratory Respiratory: Cough, Dyspnea on Exertion - Gastrointestinal Gastrointestinal: Early Satiety - Genitourinary Genitourinary: As Per HPI - Musculoskeletal Musculoskeletal: Muscle Cramps, Muscle Weakness, Myalgias - Neurological Neurological: absent: As Per HPI, Abnormal Gait, Abnormal Hearing, Abnormal Movements, Abnormal Speech, Behavioral Changes, Burning Sensations, Confusion, Convulsions, Disequilibrium, Dizziness, Numbness, Focal Weakness, Frequent Fa lls, Headaches, Lack of Coordination, Loss of Vision, Memory Loss, Paresthesias, Radicular Pain, Restless Legs, Sensory Deficit, Syncope, Tingling, Tremor, Vertigo, Weakness, Other Visual Disturbances, Other Past Patient History - Infectious Disease Hx of Infectious Diseases: None - Tetanus Immunizations Tetanus Immunization: Unknown - Past Medical History & Family History Past Medical History?: Yes Past Family History: Reviewed and not pertinent - Past Social History Smoking Status: Never Smoked Chewing Tobacco Use: No Cigar Use: No Alcohol: None Drugs: Denies Home Situation {Lives}: With Family - CARDIAC Hx Hypertension: Yes - PULMONARY Hx Asthma: Yes - NEUROLOGICAL Hx Neurological Disorder: No - HEENT Hx HEENT Problems: No - RENAL Hx Chronic Kidney Disease: Yes Hx Kidney Stones: No - ENDOCRINE/METABOLIC Hx Endocrine Disorders: No - HEMATOLOGICAL/ONCOLOGICAL Hx Blood Disorders: Yes Hx Blood Transfusions: Yes () - INTEGUMENTARY Hx Dermatological Problems: No - MUSCULOSKELETAL/RHEUMATOLOGICAL Hx Musculoskeletal Disorders: No Hx Falls: No - GASTROINTESTINAL Hx Gastrointestinal Disorders: No - GENITOURINARY/GYNECOLOGICAL Hx Genitourinary Disorders: No - PSYCHIATRIC Hx Substance Use: No - SURGICAL HISTORY Hx Surgeries: Yes Other/Comment: left lung drain. left arm fistula - ANESTHESIA Hx Anesthesia: Yes Hx Anesthesia Reactions: No Meds Allergies/Adverse Reactions: Allergies Allergy/AdvReac Type Severity Reaction Status Date / Time No Known Allergies Allergy Verified 07/25/18 10:31 Physical Exam - Constitutional Appears: No Acute Distress, Chronically Ill - Head Exam Head Exam: ATRAUMATIC, NORMAL INSPECTION - Eye Exam Eye Exam: EOMI, Normal appearance - Neck Exam Neck exam: Positive for: Normal Inspection. Negative for: Tenderness - Respiratory Exam Respiratory Exam: Clear to Auscultation Bilateral, NORMAL BREATHING PATTERN - Cardiovascular Exam Cardiovascular Exam: REGULAR RHYTHM, +S1 - GI/Abdominal Exam GI & Abdominal Exam: Soft. absent: Tenderness - Extremities Exam Extremities exam: Positive for: pedal edema, tenderness - Neurological Exam Neurological exam: Alert, CN II-XII Intact - Skin Skin Exam: Dry, Warm Results - Vital Signs Recent Vital Signs: Last Vital Signs Temp 97.1 F L 07/25/18 10:33 Pulse 113 H 07/25/18 10:43 Resp 20 07/25/18 10:43 BP 156/90 H 07/25/18 10:43 Pulse Ox 97 07/25/18 10:51 - Labs Result Diagrams: 07/25/18 11:11 Labs: Laboratory Results - last 24 hr 07/25/18 11:11 WBC 2.4 L RBC 2.91 L Hgb 9.8 L Hct 30.7 L MCV 105.4 H D MCH 33.7 H MCHC 31.9 L RDW 22.8 H Plt Count 192 MPV 8.3 Neut % (Auto) 65.3 Lymph % (Auto) 16.5 L [place] % (Auto) 10.3 H Eos % (Auto) 6.3 H Baso % (Auto) 1.6 Neut # (Auto) 1.6 L Lymph # (Auto) 0.4 L [place] # (Auto) 0.2 Eos # (Auto) 0.1 Baso # (Auto) 0.0 Assessment & Plan (1) TB pleurisy Status: Acute (2) Hypertensive chronic kidney disease with stage 5 chronic kidney disease or end stage renal disease Status: Acute (3) ESRD (end stage renal disease) Status: Acute (4) HTN (hypertension) Status: Chronic - Assessment and Plan (Free Text) Plan: dialysis MWF Will need FOB to document neg afb continue TB meds as per pulmonary
[2018-07-25 11:59] LABS: ALB/GLOB RATIO 0.7 (1.0-2.1); ALBUMIN 3.7 g/dL (3.5-5.0); ALT/SGPT < 6 U/L (9-52); AST/SGOT 22 U/L (14-36); BLOOD UREA NITROGEN 58 mg/dL (7-17); CALCIUM 9.4 mg/dl (8.6-10.4); GFR NON-AFRICAN AMERICAN 4
[2018-07-25 12:15] LABS: B-TYPE NATRIURETIC PEPTIDE 104000 pg/mL (0-450)
--- NOTE | 2018-07-25 13:20 | RAD ---
Chest x-ray single frontal view History: Shortness of breath. Comparison: 06/09/2018 Findings: Right central venous catheter tip extending into the right atrium. Moderate bilateral pleural effusions. Prominent bibasilar airspace opacities. Right hilar prominence. Diffuse increased interstitial lung markings. Few scattered nodular densities in both lung reed. Biapical pleural thickening. Cardiomegaly. Degenerative changes in the spine and shoulders. Impression: Right central venous catheter tip extending into the right atrium. Moderate bilateral pleural effusions. Prominent bibasilar airspace opacities. Right hilar prominence. Diffuse increased interstitial lung markings. Few scattered nodular densities in both lung reed. Biapical pleural thickening. Cardiomegaly.
--- NOTE | 2018-07-25 17:47 | CP.PCM.CON ---
History of Present Illness - History of Present Illness History of Present Illness: Patient is 47 years old female with PMHX of ESRD presenting to the ED requesting dialysis. Patient was recently discharged from [facility]. She was admitted for PLEURAL TB . During the course of her stay, we were not able to induce AFB sputum and she was on TB medications. She receives dialysis on Tuesdays, , and Saturdays. She was not able to receive dialysis on Sunday 07/23 because there is no record negative AFB sputum. Patient admits to cough.Patient denies fevers, chills, chest pain, SOB. PMHX: Asthma, HTN, ESRD FAMILY HX: Noncontributory ALL: NKDA MEDS: As per chart SOCIAL: denies tobacco, EToH, Drug use Physical Exam Oxygen Saturation 97% NC General: NAD Cardio: Tachycardic, S1. S2, No murmurs, rubs, gallops Resp: CTA Abd: Soft, non-tender, No rebound, rigidity, guarding A/P 1) TB Pleurisy -Patient is on schedule for Bronchoscopy 11AM 07/26/18 -Continue TB meds 2) ESRD -Chronic -Inpatient Dialysis Past Patient History - Infectious Disease Hx of Infectious Diseases: None - Tetanus Immunizations Tetanus Immunization: Unknown - Past Medical History & Family History Past Medical History?: Yes Past Family History: Reviewed and not pertinent - Past Social History Smoking Status: Never Smoked Chewing Tobacco Use: No Cigar Use: No Alcohol: None Drugs: Denies Home Situation {Lives}: With Family - CARDIAC Hx Hypertension: Yes - PULMONARY Hx Asthma: Yes - NEUROLOGICAL Hx Neurological Disorder: No - HEENT Hx HEENT Problems: No - RENAL Hx Chronic Kidney Disease: Yes Hx Kidney Stones: No - ENDOCRINE/METABOLIC Hx Endocrine Disorders: No - HEMATOLOGICAL/ONCOLOGICAL Hx Blood Disorders: Yes Hx Blood Transfusions: Yes () - INTEGUMENTARY Hx Dermatological Problems: No - MUSCULOSKELETAL/RHEUMATOLOGICAL Hx Musculoskeletal Disorders: No Hx Falls: No - GASTROINTESTINAL Hx Gastrointestinal Disorders: No - GENITOURINARY/GYNECOLOGICAL Hx Genitourinary Disorders: No - PSYCHIATRIC Hx Substance Use: No - SURGICAL HISTORY Hx Surgeries: Yes Other/Comment: left lung drain. left arm fistula - ANESTHESIA Hx Anesthesia: Yes Hx Anesthesia Reactions: No Meds Allergies/Adverse Reactions: Allergies Allergy/AdvReac Type Severity Reaction Status Date / Time No Known Allergies Allergy Verified 07/25/18 10:31 Results - Vital Signs Recent Vital Signs: Last Vital Signs Temp 97.7 F 07/25/18 16:15 Pulse 123 H 07/25/18 16:15 Resp 18 07/25/18 16:15 BP 158/103 H 07/25/18 16:15 Pulse Ox 100 07/25/18 16:15 - Labs Result Diagrams: 07/25/18 11:11 07/25/18 11:11 Labs: Laboratory Results - last 24 hr 07/25/18 07/25/18 11:11 11:11 WBC 2.4 L RBC 2.91 L Hgb 9.8 L Hct 30.7 L MCV 105.4 H D MCH 33.7 H MCHC 31.9 L RDW 22.8 H Plt Count 192 MPV 8.3 Neut % (Auto) 65.3 Lymph % (Auto) 16.5 L [place] % (Auto) 10.3 H Eos % (Auto) 6.3 H Baso % (Auto) 1.6 Neut # (Auto) 1.6 L Lymph # (Auto) 0.4 L [place] # (Auto) 0.2 Eos # (Auto) 0.1 Baso # (Auto) 0.0 Sodium 137 Potassium 4.5 Chloride 101 Carbon Dioxide 23 Anion Gap 18 BUN 58 H Creatinine 9.7 H* D Est GFR ( Amer) 5 Est GFR (Non-Af Amer) 4 Random Glucose 77 Calcium 9.4 Total Bilirubin 1.1 AST 22 ALT < 6 L D Alkaline Phosphatase 128 H Troponin I 0.1860 H* NT-Pro-B Natriuret Pep 418497 H Total Protein 8.8 H Albumin 3.7 Globulin 5.1 H Albumin/Globulin Ratio 0.7 L
[2018-07-26 08:07] LABS: CALCIUM 8.3 mg/dl (8.6-10.4)
--- NOTE | 2018-07-26 08:48 | CP.PCM.HP ---
History of Present Illness - History of Present Illness History of Present Illness: cc: SOB 47 y/o female with ESRD, HTN, Recent Dx for pleral TB and ? pneumonitis. Pt discharge and was scheduled HD on 07/23. Pt's HD center refuse to dialyze patient with out negative AFB even clear by [facility]. Pt felt weak and SOB. She was ask to go to ER for HD. Present on Admission - Present on Admission Any Indicators Present on Admission: Yes History of DVT/PE: No History of Uncontrolled Diabetes: No Urinary Catheter: No Decubitus Ulcer Present: No Review of Systems - Review of Systems Systems not reviewed;Unavailable: Altered Mental Status - Constitutional Constitutional: absent: Headache, Sleep Apnea - EENT Eyes: absent: Exophthalmos, Pain, Spots in Vision Ears: absent: Decreased Hearing, Disequilibrium Nose/Mouth/Throat: absent: Nasal Congestion, Post Nasal Drip, Bleeding Gums, Change in Voice, Dysphagia - Breasts Breasts: absent: Mass - Cardiovascular Cardiovascular: Dyspnea on Exertion. absent: Chest Pain, Diaphoresis, Edema, Irregular Heart Rhythm, Leg Edema, Pedal Edema - Respiratory Respiratory: Dyspnea on Exertion. absent: Cough, Hemoptysis, Chest Congestion, Excessive Mucous Production - Gastrointestinal Gastrointestinal: absent: Abdominal Pain, Fecal Incontinence, Heartburn, Nausea - Musculoskeletal Musculoskeletal: absent: Atrophy, Back Pain, Muscle Weakness, Numbness - Integumentary Integumentary: absent: Change in Hair, Dry Skin, Photosensitivity, Pruritus, Rash Past Patient History - Infectious Disease Hx of Infectious Diseases: None - Tetanus Immunizations Tetanus Immunization: Unknown - Past Medical History & Family History Past Medical History?: Yes Past Family History: Reviewed and not pertinent - Past Social History Smoking Status: Never Smoked Chewing Tobacco Use: No Cigar Use: No Alcohol: None Drugs: Denies Home Situation {Lives}: With Family - CARDIAC Hx Hypertension: Yes - PULMONARY Hx Asthma: Yes - NEUROLOGICAL Hx Neurological Disorder: No - HEENT Hx HEENT Problems: No - RENAL Hx Chronic Kidney Disease: Yes Hx Kidney Stones: No - ENDOCRINE/METABOLIC Hx Endocrine Disorders: No - HEMATOLOGICAL/ONCOLOGICAL Hx Blood Disorders: Yes Hx Blood Transfusions: Yes () - INTEGUMENTARY Hx Dermatological Problems: No - MUSCULOSKELETAL/RHEUMATOLOGICAL Hx Musculoskeletal Disorders: No Hx Falls: No - GASTROINTESTINAL Hx Gastrointestinal Disorders: No - GENITOURINARY/GYNECOLOGICAL Hx Genitourinary Disorders: No - PSYCHIATRIC Hx Substance Use: No - SURGICAL HISTORY Hx Surgeries: Yes Other/Comment: left lung drain. left arm fistula - ANESTHESIA Hx Anesthesia: Yes Hx Anesthesia Reactions: No Meds Allergies/Adverse Reactions: Allergies Allergy/AdvReac Type Severity Reaction Status Date / Time No Known Allergies Allergy Verified 07/25/18 10:31 Physical Exam - Constitutional Appears: Well - Eye Exam Eye Exam: Normal appearance - ENT Exam ENT Exam: Mucous Membranes Moist - Neck Exam Neck exam: Positive for: Full Rom. Negative for: Lymphadenopathy, Meningismus - Respiratory Exam Respiratory Exam: Decreased Breath Sounds. absent: Rales, Rhonchi, Wheezes - GI/Abdominal Exam GI & Abdominal Exam: Soft. absent: Pulsatile Mass, Tenderness - Extremities Exam Extremities exam: Positive for: full ROM, normal capillary refill. Negative for: calf tenderness, joint swelling, pedal edema Results - Vital Signs Recent Vital Signs: Last Vital Signs Temp 98.2 F 07/26/18 07:25 Pulse 117 H 07/26/18 07:25 Resp 20 07/26/18 07:25 BP 159/99 H 07/26/18 07:25 Pulse Ox 100 07/26/18 07:25 - Labs Result Diagrams: 07/25/18 11:11 07/26/18 07:06 Labs: Laboratory Results - last 24 hr 07/25/18 07/25/18 07/26/18 11:11 11:11 07:06 WBC 2.4 L RBC 2.91 L Hgb 9.8 L Hct 30.7 L MCV 105.4 H D MCH 33.7 H MCHC 31.9 L RDW 22.8 H Plt Count 192 MPV 8.3 Neut % (Auto) 65.3 Lymph % (Auto) 16.5 L [place] % (Auto) 10.3 H Eos % (Auto) 6.3 H Baso % (Auto) 1.6 Neut # (Auto) 1.6 L Lymph # (Auto) 0.4 L [place] # (Auto) 0.2 Eos # (Auto) 0.1 Baso # (Auto) 0.0 Sodium 137 136 Potassium 4.5 4.2 Chloride 101 99 Carbon Dioxide 23 30 Anion Gap 18 11 BUN 58 H 30 H Creatinine 9.7 H* D 5.7 H Est GFR ( Amer) 5 10 Est GFR (Non-Af Amer) 4 8 Random Glucose 77 80 Calcium 9.4 8.3 L Total Bilirubin 1.1 AST 22 ALT < 6 L D Alkaline Phosphatase 128 H Troponin I 0.1860 H* NT-Pro-B Natriuret Pep 932081 H Total Protein 8.8 H Albumin 3.7 Globulin 5.1 H Albumin/Globulin Ratio 0.7 L Assessment & Plan - Assessment and Plan (Free Text) Assessment: SOB/ Inc Effusion - likely c/o did not get dialyze ESRD, HTN, Pleural TB for Bbronchospy today Supportive care
--- NOTE | 2018-07-26 10:03 | CP.PCM.PN ---
Subjective - Date & Time of Evaluation Date of Evaluation: 07/26/18 Time of Evaluation: 10:05 - Subjective Subjective: bp stable temp 100.4 comfortable in bed sob better with oxygen ROS no chest pain no cough no abd pain,N,V,D anuric Objective - Vital Signs/Intake and Output Vital Signs (last 24 hours): Temp Pulse Resp BP Pulse Ox 98.2 F 117 H 20 159/99 H 100 07/26/18 07:25 07/26/18 07:25 07/26/18 07:25 07/26/18 07:25 07/26/18 07:25 Intake and Output: 07/26/18 07/26/18 06:59 18:59 Intake Total 200 Balance 200 - Medications Medications: Current Medications Amlodipine Besylate (Norvasc) 5 mg PO DAILY [facility] Last Admin: 07/26/18 09:58 Dose: 5 mg Amlodipine Besylate (Norvasc) 2.5 mg PO DAILY [facility] Last Admin: 07/26/18 09:58 Dose: 2.5 mg Ethambutol HCl (Myambutol) 800 mg PO TTS [facility]; Protocol Heparin Sodium (Porcine) (Heparin) 5,000 units SC Q12 [facility] Isoniazid (Niazid) 300 mg PO DAILY [facility]; Protocol Pyrazinamide (Pyrazinamide) 1,000 mg PO TTS [facility]; Protocol Pyridoxine HCl (Vitamin B6 50 Mg Tab) 50 mg PO DAILY [facility] Last Admin: 07/26/18 09:57 Dose: 50 mg Pyridoxine HCl (Vitamin B6 50 Mg Tab) 50 mg PO DAILY [facility] Rifampin (Rifampin) 450 mg PO DAILY [facility]; Protocol - Labs Labs: 07/25/18 11:11 07/26/18 07:06 - Constitutional Appears: No Acute Distress - ENT Exam ENT Exam: Mucous Membranes Moist - Respiratory Exam Respiratory Exam: NORMAL BREATHING PATTERN Additional comments: coarse sounds prolonged insp and exp - Cardiovascular Exam Cardiovascular Exam: REGULAR RHYTHM - GI/Abdominal Exam GI & Abdominal Exam: Soft. absent: Distended, Tenderness - Extremities Exam Extremities Exam: absent: Calf Tenderness - Back Exam Back Exam: absent: CVA tenderness (L), CVA tenderness (R) - Neurological Exam Neurological Exam: Alert, Awake - Psychiatric Exam Psychiatric exam: absent: Anxious - Skin Skin Exam: Dry, Warm Assessment and Plan (1) ESRD (end stage renal disease) Status: Acute (2) Pleural effusion Status: Acute (3) Type 2 diabetes mellitus with diabetic nephropathy Status: Acute (4) ESRD (end stage renal disease) on dialysis Status: Chronic (5) HTN (hypertension) Status: Chronic - Assessment and Plan (Free Text) Plan: dialysis scheduled for 07/27 bronchosopy today
[2018-07-26] MEDS ORDERED: Lidocaine 2% MPF (5 ml) Inj ONE ×2 (10:46→11:06)
[2018-07-26] MEDS ORDERED: EPINEPHrine 1 mg/ml (1:1000) Inj ONE (10:46)
[2018-07-26] MEDS ORDERED: Succinylcholine Chloride 20 mg/ml Syr (5 ml) IV ONE (11:22)
[2018-07-26] MEDS ORDERED: Propofol 10 mg/ml Inj (20 ML) ONE (11:22)
--- NOTE | 2018-07-26 14:34 | CP.PCM.PN ---
Subjective - Date & Time of Evaluation Date of Evaluation: 07/26/18 Time of Evaluation: 12:00 - Subjective Subjective: Patient seen and examined Patient readmitted for bronchoscopy and hemodialysis Dialysis center refused to do hemodialysis and requesting for bronchoscopy and AFB Patient denies cough, denies fever chills Objective - Vital Signs/Intake and Output Vital Signs (last 24 hours): Temp Pulse Resp BP Pulse Ox 98.3 F 114 H 30 H 145/87 99 07/26/18 12:30 07/26/18 12:30 07/26/18 12:30 07/26/18 12:30 07/26/18 12:30 Intake and Output: 07/26/18 07/26/18 06:59 18:59 Intake Total 200 100 Balance 200 100 - Medications Medications: Current Medications Amlodipine Besylate (Norvasc) 5 mg PO DAILY [facility] Last Admin: 07/26/18 09:58 Dose: 5 mg Amlodipine Besylate (Norvasc) 2.5 mg PO DAILY [facility] Last Admin: 07/26/18 09:58 Dose: 2.5 mg Ethambutol HCl (Myambutol) 800 mg PO TTS [facility]; Protocol Heparin Sodium (Porcine) (Heparin) 5,000 units SC Q12 [facility] Last Admin: 07/26/18 10:00 Dose: Not Given Isoniazid (Niazid) 300 mg PO DAILY [facility]; Protocol Pyrazinamide (Pyrazinamide) 1,000 mg PO TTS [facility]; Protocol Pyridoxine HCl (Vitamin B6 50 Mg Tab) 50 mg PO DAILY [facility] Last Admin: 07/26/18 09:57 Dose: 50 mg Pyridoxine HCl (Vitamin B6 50 Mg Tab) 50 mg PO DAILY [facility] Last Admin: 07/26/18 10:00 Dose: Not Given Rifampin (Rifampin) 450 mg PO DAILY [facility]; Protocol - Labs Labs: 07/25/18 11:11 07/26/18 07:06 - Head Exam Head Exam: ATRAUMATIC, NORMOCEPHALIC - ENT Exam ENT Exam: Mucous Membranes Moist - Neck Exam Neck Exam: Normal Inspection - Respiratory Exam Respiratory Exam: Decreased Breath Sounds - Cardiovascular Exam Cardiovascular Exam: REGULAR RHYTHM - GI/Abdominal Exam GI & Abdominal Exam: Soft, Normal Bowel Sounds - Extremities Exam Extremities Exam: Normal Inspection - Neurological Exam Neurological Exam: Alert Assessment and Plan (1) ESRD (end stage renal disease) Status: Acute (2) TB pleurisy Assessment & Plan: Status post bronchoscopy and bronchoalveolar lavage PCR Sputum AFB post bronchoscopy Continue hemodialysis Status: Acute
--- NOTE | 2018-07-27 08:37 | CP.PCM.PN ---
Subjective - Date & Time of Evaluation Date of Evaluation: 07/27/18 Time of Evaluation: 08:21 - Subjective Subjective: Pt feels well; no more SOB and no cough No CP, no edema, palpitation, n/v, nor diarrhea Objective - Vital Signs/Intake and Output Vital Signs (last 24 hours): Temp Pulse Resp BP Pulse Ox 97.5 F L 115 H 20 131/81 100 07/27/18 07:10 07/27/18 08:30 07/27/18 07:10 07/27/18 07:10 07/27/18 07:10 Intake and Output: 07/27/18 07/27/18 06:59 18:59 Intake Total 300 Balance 300 - Medications Medications: Current Medications Amlodipine Besylate (Norvasc) 5 mg PO DAILY [facility] Last Admin: 07/26/18 09:58 Dose: 5 mg Amlodipine Besylate (Norvasc) 2.5 mg PO DAILY [facility] Last Admin: 07/26/18 09:58 Dose: 2.5 mg Ethambutol HCl (Myambutol) 800 mg PO TTS [facility]; Protocol Last Admin: 07/26/18 16:44 Dose: 800 mg Heparin Sodium (Porcine) (Heparin) 5,000 units SC Q12 [facility] Last Admin: 07/26/18 21:52 Dose: 5,000 units Isoniazid (Niazid) 300 mg PO DAILY [facility]; Protocol Last Admin: 07/26/18 17:49 Dose: 300 mg Pyrazinamide (Pyrazinamide) 1,000 mg PO TTS [facility]; Protocol Last Admin: 07/26/18 17:49 Dose: 1,000 mg Pyridoxine HCl (Vitamin B6 50 Mg Tab) 50 mg PO DAILY [facility] Last Admin: 07/26/18 09:57 Dose: 50 mg Pyridoxine HCl (Vitamin B6 50 Mg Tab) 50 mg PO DAILY [facility] Last Admin: 07/26/18 10:00 Dose: Not Given Rifampin (Rifampin) 450 mg PO DAILY [facility]; Protocol Last Admin: 07/26/18 16:45 Dose: 450 mg - Labs Labs: 07/25/18 11:11 07/26/18 07:06 - Constitutional Appears: No Acute Distress - Eye Exam Eye Exam: Normal appearance - ENT Exam ENT Exam: Mucous Membranes Moist, Normal Oropharynx - Neck Exam Neck Exam: Full ROM. absent: Lymphadenopathy, Tenderness - Respiratory Exam Respiratory Exam: Decreased Breath Sounds. absent: Rales, Rhonchi, Wheezes - Cardiovascular Exam Cardiovascular Exam: REGULAR RHYTHM, +S1, +S2. absent: Gallop, JVD, Murmur - GI/Abdominal Exam GI & Abdominal Exam: Soft. absent: Tenderness, Normal Bowel Sounds - Extremities Exam Extremities Exam: Full ROM, Normal Capillary Refill. absent: Calf Tenderness, Joint Swelling, Pedal Edema Assessment and Plan - Assessment and Plan (Free Text) Assessment: s/p Bronchoscopy Pleural TB; ESRD, HTN For diacharge if neg AFB and accepted c/o OPD Dialysis Cont meds
--- NOTE | 2018-07-27 13:06 | CP.PCM.PN ---
Subjective - Date & Time of Evaluation Date of Evaluation: 07/27/18 Time of Evaluation: 13:04 - Subjective Subjective: s/p FOB for dialysis now to UF 2300ml HTN controlled Feels well Await afb results Objective - Vital Signs/Intake and Output Vital Signs (last 24 hours): Temp Pulse Resp BP Pulse Ox 97.5 F L 115 H 20 131/81 100 07/27/18 07:10 07/27/18 08:30 07/27/18 07:10 07/27/18 07:10 07/27/18 07:10 Intake and Output: 07/27/18 07/27/18 06:59 18:59 Intake Total 300 Balance 300 - Medications Medications: Current Medications Amlodipine Besylate (Norvasc) 5 mg PO DAILY [facility] Last Admin: 07/27/18 12:40 Dose: Not Given Amlodipine Besylate (Norvasc) 2.5 mg PO DAILY [facility] Last Admin: 07/27/18 12:41 Dose: Not Given Ethambutol HCl (Myambutol) 800 mg PO TTS [facility]; Protocol Last Admin: 07/26/18 16:44 Dose: 800 mg Heparin Sodium (Porcine) (Heparin) 5,000 units SC Q12 [facility] Last Admin: 07/27/18 12:40 Dose: Not Given Isoniazid (Niazid) 300 mg PO DAILY [facility]; Protocol Last Admin: 07/27/18 12:40 Dose: Not Given Pyrazinamide (Pyrazinamide) 1,000 mg PO TTS [facility]; Protocol Last Admin: 07/26/18 17:49 Dose: 1,000 mg Pyridoxine HCl (Vitamin B6 50 Mg Tab) 50 mg PO DAILY [facility] Last Admin: 07/27/18 12:41 Dose: Not Given Pyridoxine HCl (Vitamin B6 50 Mg Tab) 50 mg PO DAILY [facility] Last Admin: 07/27/18 12:41 Dose: Not Given Rifampin (Rifampin) 450 mg PO DAILY [facility]; Protocol Last Admin: 07/27/18 12:41 Dose: Not Given - Labs Labs: 07/25/18 11:11 07/26/18 07:06 - Constitutional Appears: No Acute Distress, Chronically Ill - Head Exam Head Exam: ATRAUMATIC, NORMAL INSPECTION - Eye Exam Eye Exam: EOMI, Normal appearance - Neck Exam Neck Exam: Normal Inspection. absent: Tenderness - Respiratory Exam Respiratory Exam: Clear to Ausculation Bilateral, NORMAL BREATHING PATTERN - Cardiovascular Exam Cardiovascular Exam: REGULAR RHYTHM, +S1 - GI/Abdominal Exam GI & Abdominal Exam: Soft. absent: Tenderness - Extremities Exam Extremities Exam: Normal Inspection. absent: Tenderness - Neurological Exam Neurological Exam: Awake, CN II-XII Intact - Skin Skin Exam: Dry, Warm Assessment and Plan (1) TB pleurisy Status: Acute (2) Hypertensive chronic kidney disease with stage 5 chronic kidney disease or end stage renal disease Status: Acute (3) ESRD (end stage renal disease) Status: Acute (4) HTN (hypertension) Status: Chronic - Assessment and Plan (Free Text) Plan: dialysis now await afb results
--- NOTE | 2018-07-27 14:52 | CP.PCM.PN ---
Subjective - Date & Time of Evaluation Date of Evaluation: 07/27/18 Time of Evaluation: 13:30 - Subjective Subjective: Patient seen and examined Alert, Awake, No acute distress Cough and SOB have resolved Denies fever, chest pain, SOB, hemoptysis Afebrile Brochoscopy was performed on 07/26. Pending results, patient is clinically stable for discharge. Physical Exam Oxygen Saturation 100% NC General: NAD Cardio: Tachycardic, S1. S2, No murmurs, rubs, gallops Resp: CTA Abd: Soft, non-tender, No rebound, rigidity, guarding A/P 1) TB Pleurisy -F/U Bronchoscopy Results from 07/26 pending Pathology results -Continue TB meds 2) ESRD -Chronic -Continue Dialysis Objective - Vital Signs/Intake and Output Vital Signs (last 24 hours): Temp Pulse Resp BP Pulse Ox 97.7 F 108 H 16 144/87 100 07/27/18 12:55 07/27/18 12:55 07/27/18 12:55 07/27/18 14:20 07/27/18 12:55 Intake and Output: 07/27/18 07/27/18 06:59 18:59 Intake Total 300 Balance 300 - Medications Medications: Current Medications Amlodipine Besylate (Norvasc) 5 mg PO DAILY [facility] Last Admin: 07/27/18 12:40 Dose: Not Given Amlodipine Besylate (Norvasc) 2.5 mg PO DAILY [facility] Last Admin: 07/27/18 12:41 Dose: Not Given Ethambutol HCl (Myambutol) 800 mg PO TTS [facility]; Protocol Last Admin: 07/26/18 16:44 Dose: 800 mg Heparin Sodium (Porcine) (Heparin) 5,000 units SC Q12 [facility] Last Admin: 07/27/18 12:40 Dose: Not Given Isoniazid (Niazid) 300 mg PO DAILY [facility]; Protocol Last Admin: 07/27/18 12:40 Dose: Not Given Pyrazinamide (Pyrazinamide) 1,000 mg PO TTS [facility]; Protocol Last Admin: 07/26/18 17:49 Dose: 1,000 mg Pyridoxine HCl (Vitamin B6 50 Mg Tab) 50 mg PO DAILY [facility] Last Admin: 07/27/18 12:41 Dose: Not Given Pyridoxine HCl (Vitamin B6 50 Mg Tab) 50 mg PO DAILY [facility] Last Admin: 07/27/18 12:41 Dose: Not Given Rifampin (Rifampin) 450 mg PO DAILY [facility]; Protocol Last Admin: 07/27/18 12:41 Dose: Not Given - Labs Labs: 07/25/18 11:11 07/26/18 07:06
--- NOTE | 2018-07-27 22:54 | CARD ---
APPROVED REPORT Date of service: 07/25/2018 EKG Measurement Heart [id number] <Conclusion> Sinus tachycardia Cannot rule out Anterior infarct, age undetermined Abnormal ECG
--- NOTE | 2018-07-28 06:17 | OP ---
PROCEDURE DATE: 07/26/2018 PROCEDURE: Fiberoptic bronchoscopy with bronchoalveolar lavage. SURGEON: Zbigniew Allen MD INDICATION: Rule out pulmonary TB. Fiberoptic bronchoscopy procedure was done. DESCRIPTION OF PROCEDURE: After obtaining consent from the patient, explaining to the patient's the risks and benefits which she understood, the patient was intubated by anesthesiologist and the bronchoscope was passed through the endotracheal tube into the trachea. The main boom was sharp. The left main, the left upper and the left lower lobe all appeared normal. the bronchoscope pulled back and passed into the right side. No endobronchial lesion seen, very friable right lower lobe mucosa. Bronchoalveolar lavage was done from right lower lobe and right upper lobe. The patient tolerated the procedure well. No complications. Zbigniew Allen MD
--- NOTE | 2018-07-28 09:51 | CP.PCM.PN ---
Subjective - Date & Time of Evaluation Date of Evaluation: 07/28/18 Time of Evaluation: 09:49 - Subjective Subjective: Awaiting afb results Feels better stable dialysis 07/27 no other complaint Objective - Vital Signs/Intake and Output Vital Signs (last 24 hours): Temp Pulse Resp BP Pulse Ox 98.2 F 111 H 20 149/86 100 07/28/18 07:25 07/28/18 07:25 07/28/18 07:25 07/28/18 07:25 07/28/18 07:25 Intake and Output: 07/28/18 07/28/18 06:59 18:59 Intake Total 400 Balance 400 - Medications Medications: Current Medications Amlodipine Besylate (Norvasc) 5 mg PO DAILY [facility] Last Admin: 07/27/18 16:47 Dose: 5 mg Amlodipine Besylate (Norvasc) 2.5 mg PO DAILY [facility] Last Admin: 07/27/18 16:47 Dose: 2.5 mg Ethambutol HCl (Myambutol) 800 mg PO TTS [facility]; Protocol Last Admin: 07/26/18 16:44 Dose: 800 mg Heparin Sodium (Porcine) (Heparin) 5,000 units SC Q12 [facility] Last Admin: 07/27/18 21:55 Dose: 5,000 units Isoniazid (Niazid) 300 mg PO DAILY [facility]; Protocol Last Admin: 07/27/18 16:46 Dose: 300 mg Pyrazinamide (Pyrazinamide) 1,000 mg PO TTS [facility]; Protocol Last Admin: 07/26/18 17:49 Dose: 1,000 mg Pyridoxine HCl (Vitamin B6 50 Mg Tab) 50 mg PO DAILY [facility] Last Admin: 07/27/18 16:47 Dose: 50 mg Pyridoxine HCl (Vitamin B6 50 Mg Tab) 50 mg PO DAILY [facility] Last Admin: 07/27/18 12:41 Dose: Not Given Rifampin (Rifampin) 450 mg PO DAILY [facility]; Protocol Last Admin: 07/27/18 16:47 Dose: 450 mg - Labs Labs: 07/25/18 11:11 07/26/18 07:06 - Constitutional Appears: No Acute Distress, Chronically Ill - Head Exam Head Exam: ATRAUMATIC, NORMAL INSPECTION - Eye Exam Eye Exam: EOMI, Normal appearance - Neck Exam Neck Exam: Normal Inspection. absent: Tenderness - Respiratory Exam Respiratory Exam: Clear to Ausculation Bilateral, NORMAL BREATHING PATTERN - Cardiovascular Exam Cardiovascular Exam: REGULAR RHYTHM, +S1 - GI/Abdominal Exam GI & Abdominal Exam: Soft. absent: Tenderness - Extremities Exam Extremities Exam: Normal Inspection. absent: Tenderness - Neurological Exam Neurological Exam: Awake, CN II-XII Intact - Skin Skin Exam: Dry, Warm Assessment and Plan (1) TB pleurisy Status: Acute (2) Hypertensive chronic kidney disease with stage 5 chronic kidney disease or end stage renal disease Status: Acute (3) ESRD (end stage renal disease) Status: Acute (4) HTN (hypertension) Status: Chronic - Assessment and Plan (Free Text) Plan: dialysis in AM Eventually switch back to TTS schedule await afb results
--- NOTE | 2018-07-28 17:42 | CP.PCM.PN ---
Subjective - Date & Time of Evaluation Date of Evaluation: 07/28/18 Time of Evaluation: 08:45 - Subjective Subjective: Patient seen and examined Alert, Awake, No acute distress Denies fever, chest pain, Cough, SOB, hemoptysis Afebrile Brochoscopy was performed on 07/26. Pending results, patient is clinically stable for discharge. Hospital will need to inform her dialysis center of the results so she may continue dialysis outpatient. Physical Exam Oxygen Saturation 100% NC General: NAD Cardio: Tachycardic, S1. S2, No murmurs, rubs, gallops Resp: CTA Abd: Soft, non-tender, No rebound, rigidity, guarding A/P 1) TB Pleurisy -Still waiting for results from Bronchoscopy 07/26 -Continue TB meds 2) ESRD -Chronic -Continue Dialysis outpatient pending results of Bronchoscopy Objective - Vital Signs/Intake and Output Vital Signs (last 24 hours): Temp Pulse Resp BP Pulse Ox 98.1 F 105 H 20 135/80 100 07/28/18 16:00 07/28/18 16:00 07/28/18 16:00 07/28/18 16:00 07/28/18 16:00 Intake and Output: 07/28/18 07/28/18 06:59 18:59 Intake Total 400 350 Balance 400 350 - Medications Medications: Current Medications Amlodipine Besylate (Norvasc) 5 mg PO DAILY [facility] Last Admin: 07/28/18 11:37 Dose: 5 mg Amlodipine Besylate (Norvasc) 2.5 mg PO DAILY [facility] Last Admin: 07/28/18 11:37 Dose: 2.5 mg Ethambutol HCl (Myambutol) 800 mg PO TTS [facility]; Protocol Last Admin: 07/28/18 11:33 Dose: 800 mg Heparin Sodium (Porcine) (Heparin) 5,000 units SC Q12 [facility] Last Admin: 07/28/18 11:38 Dose: 5,000 units Isoniazid (Niazid) 300 mg PO DAILY [facility]; Protocol Last Admin: 07/28/18 11:33 Dose: 300 mg Pyrazinamide (Pyrazinamide) 1,000 mg PO TTS [facility]; Protocol Last Admin: 07/28/18 11:32 Dose: 1,000 mg Pyridoxine HCl (Vitamin B6 50 Mg Tab) 50 mg PO DAILY [facility] Last Admin: 07/28/18 11:37 Dose: 50 mg Pyridoxine HCl (Vitamin B6 50 Mg Tab) 50 mg PO DAILY [facility] Last Admin: 07/28/18 11:38 Dose: Not Given Rifampin (Rifampin) 450 mg PO DAILY [facility]; Protocol Last Admin: 07/28/18 11:32 Dose: 450 mg - Labs Labs: 07/25/18 11:11 07/26/18 07:06
--- NOTE | 2018-07-28 18:56 | CP.PCM.PN ---
Subjective - Date & Time of Evaluation Date of Evaluation: 07/28/18 Time of Evaluation: 18:53 - Subjective Subjective: S: Feels richard. No fever Objective - Vital Signs/Intake and Output Vital Signs (last 24 hours): Temp Pulse Resp BP Pulse Ox 98.1 F 105 H 20 135/80 100 07/28/18 16:00 07/28/18 16:00 07/28/18 16:00 07/28/18 16:00 07/28/18 16:00 Intake and Output: 07/28/18 07/28/18 06:59 18:59 Intake Total 400 350 Balance 400 350 - Medications Medications: Current Medications Amlodipine Besylate (Norvasc) 5 mg PO DAILY [facility] Last Admin: 07/28/18 11:37 Dose: 5 mg Amlodipine Besylate (Norvasc) 2.5 mg PO DAILY [facility] Last Admin: 07/28/18 11:37 Dose: 2.5 mg Ethambutol HCl (Myambutol) 800 mg PO TTS [facility]; Protocol Last Admin: 07/28/18 11:33 Dose: 800 mg Heparin Sodium (Porcine) (Heparin) 5,000 units SC Q12 [facility] Last Admin: 07/28/18 11:38 Dose: 5,000 units Isoniazid (Niazid) 300 mg PO DAILY [facility]; Protocol Last Admin: 07/28/18 11:33 Dose: 300 mg Pyrazinamide (Pyrazinamide) 1,000 mg PO TTS [facility]; Protocol Last Admin: 07/28/18 11:32 Dose: 1,000 mg Pyridoxine HCl (Vitamin B6 50 Mg Tab) 50 mg PO DAILY [facility] Last Admin: 07/28/18 11:37 Dose: 50 mg Pyridoxine HCl (Vitamin B6 50 Mg Tab) 50 mg PO DAILY [facility] Last Admin: 07/28/18 11:38 Dose: Not Given Rifampin (Rifampin) 450 mg PO DAILY [facility]; Protocol Last Admin: 07/28/18 11:32 Dose: 450 mg - Labs Labs: 07/25/18 11:11 07/26/18 07:06 - Constitutional Appears: No Acute Distress - Head Exam Head Exam: NORMAL INSPECTION - Eye Exam Eye Exam: Normal appearance - ENT Exam ENT Exam: Normal Exam - Neck Exam Neck Exam: Normal Inspection - Respiratory Exam Respiratory Exam: NORMAL BREATHING PATTERN - Cardiovascular Exam Cardiovascular Exam: REGULAR RHYTHM - GI/Abdominal Exam GI & Abdominal Exam: Soft - Rectal Exam Rectal Exam: Deferred - Extremities Exam Extremities Exam: Normal Inspection - Neurological Exam Neurological Exam: Alert Assessment and Plan (1) TB pleurisy Status: Acute (2) ESRD (end stage renal disease) Status: Chronic - Assessment and Plan (Free Text) Assessment: A/p: Awaiting bronchoscopy TB culture result. Continue medications
--- NOTE | 2018-07-29 07:47 | CP.PCM.PN ---
Subjective - Date & Time of Evaluation Date of Evaluation: 07/29/18 Time of Evaluation: 07:45 - Subjective Subjective: Pt feels well; Want to go home Afraid c/o will not get HD in [facility] No CP, no SOB, no edema, no cough, no diarrhea, no n/v Objective - Vital Signs/Intake and Output Vital Signs (last 24 hours): Temp Pulse Resp BP Pulse Ox 97.9 F 100 H 20 128/81 100 07/28/18 23:55 07/28/18 23:55 07/28/18 23:55 07/28/18 23:55 07/28/18 23:55 Intake and Output: 07/29/18 07/29/18 06:59 18:59 Intake Total 480 Balance 480 - Medications Medications: Current Medications Amlodipine Besylate (Norvasc) 5 mg PO DAILY [facility] [place] Last Admin: 07/28/18 11:37 Dose: 5 mg Amlodipine Besylate (Norvasc) 2.5 mg PO DAILY [facility] Last Admin: 07/28/18 11:37 Dose: 2.5 mg Ethambutol HCl (Myambutol) 800 mg PO TTS [facility]; Protocol Last Admin: 07/28/18 11:33 Dose: 800 mg Heparin Sodium (Porcine) (Heparin) 5,000 units SC Q12 [facility] Last Admin: 07/28/18 21:26 Dose: 5,000 units Isoniazid (Niazid) 300 mg PO DAILY [facility]; Protocol Last Admin: 07/28/18 11:33 Dose: 300 mg Pyrazinamide (Pyrazinamide) 1,000 mg PO TTS [facility]; Protocol Last Admin: 07/28/18 11:32 Dose: 1,000 mg Pyridoxine HCl (Vitamin B6 50 Mg Tab) 50 mg PO DAILY [facility] Last Admin: 07/28/18 11:37 Dose: 50 mg Pyridoxine HCl (Vitamin B6 50 Mg Tab) 50 mg PO DAILY [facility] Last Admin: 07/28/18 11:38 Dose: Not Given Rifampin (Rifampin) 450 mg PO DAILY [facility]; Protocol Last Admin: 07/28/18 11:32 Dose: 450 mg - Labs Labs: 07/25/18 11:11 07/26/18 07:06 - Constitutional Appears: No Acute Distress - Eye Exam Eye Exam: Normal appearance - ENT Exam ENT Exam: Mucous Membranes Moist - Neck Exam Neck Exam: Full ROM - Respiratory Exam Respiratory Exam: Clear to Ausculation Bilateral. absent: Rales, Rhonchi, Wheezes - Cardiovascular Exam Cardiovascular Exam: REGULAR RHYTHM, +S1, +S2. absent: Gallop, JVD - GI/Abdominal Exam GI & Abdominal Exam: Soft. absent: Guarding, Tenderness, Mass - Extremities Exam Extremities Exam: Full ROM, Normal Capillary Refill. absent: Calf Tenderness, Joint Swelling Assessment and Plan - Assessment and Plan (Free Text) Assessment: Pleural TB; ESRD; HTN For discharge is will get OPD HD Cont meds
--- NOTE | 2018-07-29 13:38 | CP.PCM.PN ---
Subjective - Date & Time of Evaluation Date of Evaluation: 07/29/18 Time of Evaluation: 13:36 - Subjective Subjective: seen on dialysis tolerating UF 2500ml afb negative feels better Objective - Vital Signs/Intake and Output Vital Signs (last 24 hours): Temp Pulse Resp BP Pulse Ox 98.1 F 108 H 16 126/79 96 07/29/18 12:50 07/29/18 12:50 07/29/18 12:50 07/29/18 12:50 07/29/18 12:50 Intake and Output: 07/29/18 07/29/18 06:59 18:59 Intake Total 480 Balance 480 - Medications Medications: Current Medications Amlodipine Besylate (Norvasc) 5 mg PO DAILY [facility] Last Admin: 07/29/18 10:39 Dose: Not Given Ethambutol HCl (Myambutol) 800 mg PO TTS [facility]; Protocol Last Admin: 07/28/18 11:33 Dose: 800 mg Heparin Sodium (Porcine) (Heparin) 5,000 units SC Q12 [facility] Last Admin: 07/29/18 10:38 Dose: 5,000 units Isoniazid (Niazid) 300 mg PO DAILY [facility]; Protocol Last Admin: 07/29/18 10:39 Dose: Not Given Pyrazinamide (Pyrazinamide) 1,000 mg PO TTS [facility]; Protocol Last Admin: 07/28/18 11:32 Dose: 1,000 mg Pyridoxine HCl (Vitamin B6 50 Mg Tab) 50 mg PO DAILY [facility] Last Admin: 07/29/18 10:39 Dose: Not Given Pyridoxine HCl (Vitamin B6 50 Mg Tab) 50 mg PO DAILY [facility] Last Admin: 07/29/18 10:39 Dose: Not Given Rifampin (Rifampin) 450 mg PO DAILY [facility]; Protocol Last Admin: 07/29/18 10:39 Dose: Not Given - Labs Labs: 07/25/18 11:11 07/26/18 07:06 - Constitutional Appears: No Acute Distress, Chronically Ill - Head Exam Head Exam: ATRAUMATIC, NORMAL INSPECTION - Eye Exam Eye Exam: EOMI, Normal appearance - Neck Exam Neck Exam: Normal Inspection. absent: Tenderness - Respiratory Exam Respiratory Exam: Clear to Ausculation Bilateral, NORMAL BREATHING PATTERN - Cardiovascular Exam Cardiovascular Exam: REGULAR RHYTHM, +S1 - GI/Abdominal Exam GI & Abdominal Exam: Soft. absent: Tenderness - Extremities Exam Extremities Exam: Normal Inspection. absent: Tenderness - Neurological Exam Neurological Exam: Awake, CN II-XII Intact - Skin Skin Exam: Dry, Warm Assessment and Plan (1) TB pleurisy Status: Acute (2) Hypertensive chronic kidney disease with stage 5 chronic kidney disease or end stage renal disease Status: Acute (3) ESRD (end stage renal disease) Status: Chronic (4) HTN (hypertension) Status: Chronic - Assessment and Plan (Free Text) Plan: dialysis TTS await approval by [facility] for outpt HD
--- NOTE | 2018-07-29 13:50 | CP.PCM.PN ---
Subjective - Date & Time of Evaluation Date of Evaluation: 07/29/18 Time of Evaluation: 09:00 - Subjective Subjective: Patient seen and examined sitting comfortably in no acute distress Denies cough, denies fever chills, denies night sweats Bronchial washing negative for AFB Objective - Vital Signs/Intake and Output Vital Signs (last 24 hours): Temp Pulse Resp BP Pulse Ox 98.1 F 108 H 16 126/79 96 07/29/18 12:50 07/29/18 12:50 07/29/18 12:50 07/29/18 12:50 07/29/18 12:50 Intake and Output: 07/29/18 07/29/18 06:59 18:59 Intake Total 480 Balance 480 - Medications Medications: Current Medications Amlodipine Besylate (Norvasc) 5 mg PO DAILY [facility] Last Admin: 07/29/18 10:39 Dose: Not Given Ethambutol HCl (Myambutol) 800 mg PO TTS [facility]; Protocol Last Admin: 07/28/18 11:33 Dose: 800 mg Heparin Sodium (Porcine) (Heparin) 5,000 units SC Q12 [facility] Last Admin: 07/29/18 10:38 Dose: 5,000 units Isoniazid (Niazid) 300 mg PO DAILY [facility]; Protocol Last Admin: 07/29/18 10:39 Dose: Not Given Pyrazinamide (Pyrazinamide) 1,000 mg PO TTS [facility]; Protocol Last Admin: 07/28/18 11:32 Dose: 1,000 mg Pyridoxine HCl (Vitamin B6 50 Mg Tab) 50 mg PO DAILY [facility] Last Admin: 07/29/18 10:39 Dose: Not Given Pyridoxine HCl (Vitamin B6 50 Mg Tab) 50 mg PO DAILY [facility] Last Admin: 07/29/18 10:39 Dose: Not Given Rifampin (Rifampin) 450 mg PO DAILY [facility]; Protocol Last Admin: 07/29/18 10:39 Dose: Not Given - Labs Labs: 07/25/18 11:11 07/26/18 07:06 - Head Exam Head Exam: ATRAUMATIC, NORMOCEPHALIC - ENT Exam ENT Exam: Mucous Membranes Moist - Neck Exam Neck Exam: Normal Inspection - Respiratory Exam Respiratory Exam: Clear to Ausculation Bilateral - Cardiovascular Exam Cardiovascular Exam: REGULAR RHYTHM Assessment and Plan (1) TB pleurisy Assessment & Plan: Bronchial washing negative for AFB Continue anti-TB medication Stable for discharge from pulmonary standpoint Follow-up as outpatient Status: Acute (2) ESRD (end stage renal disease) Status: Chronic
[2018-07-29 17:47] VITALS: O2SAT 100
[2018-07-30 07:15] LABS: BASO % 1.3 % (0.0-2.0); EOS # 0.2 K/uL (0.0-0.7); EOS % 13.3 % (0.0-4.0); HEMOGLOBIN 8.9 g/dL (11.0-16.0); LYMPH # 0.4 K/uL (1.0-4.3); LYMPH % 23.8 % (20.0-40.0); MEAN CELL VOLUME 104.9 fL (81.0-99.0); MEAN CORPUSCULAR HEMOGLOBIN 34.1 pg (27.0-31.0); MEAN CORPUSCULAR HGB CONC 32.5 g/dL (33.0-37.0); MEAN PLATELET VOLUME 7.6 fL (7.2-11.7); MONO # 0.3 K/uL (0.0-0.8); MONO % 16.4 % (0.0-10.0); NEUT # 0.8 K/uL (1.8-7.0); NEUT % 45.2 % (50.0-75.0); NRBC % 0.2 % (0.0-2.0); RBC 2.6 Mil/uL (3.80-5.20); RED CELL DISTRIBUTION WIDTH 20.6 % (11.5-14.5)
[2018-07-30 07:36] LABS: WHITE BLOOD COUNT 1.8 K/uL (4.8-10.8)
[2018-07-30 07:42] LABS: ALB/GLOB RATIO 0.7 (1.0-2.1); ALBUMIN 3.3 g/dL (3.5-5.0); ALT/SGPT < 6 U/L (9-52); AST/SGOT 32 U/L (14-36); BLOOD UREA NITROGEN 21 mg/dL (7-17); CALCIUM 8.7 mg/dl (8.6-10.4); GFR NON-AFRICAN AMERICAN 9
--- NOTE | 2018-07-30 08:02 | CP.PCM.PN ---
Subjective - Date & Time of Evaluation Date of Evaluation: 07/30/18 Time of Evaluation: 07:50 - Subjective Subjective: Pt feels well; no CP, no SOB, no edema, no cough Pleural fluid - also (+) AFB WBC dec to 1.8; ANC 810 Objective - Vital Signs/Intake and Output Vital Signs (last 24 hours): Temp Pulse Resp BP Pulse Ox 98.2 F 105 H 20 125/75 100 07/29/18 23:50 07/29/18 23:50 07/29/18 23:50 07/29/18 23:50 07/29/18 23:50 Intake and Output: 07/30/18 07/30/18 06:59 18:59 Intake Total 400 Balance 400 - Medications Medications: Current Medications Amlodipine Besylate (Norvasc) 5 mg PO DAILY [facility] Last Admin: 07/29/18 10:39 Dose: Not Given Ethambutol HCl (Myambutol) 800 mg PO TTS [facility]; Protocol Last Admin: 07/28/18 11:33 Dose: 800 mg Heparin Sodium (Porcine) (Heparin) 5,000 units SC Q12 [facility] Last Admin: 07/29/18 21:28 Dose: 5,000 units Isoniazid (Niazid) 300 mg PO DAILY [facility]; Protocol Last Admin: 07/29/18 10:39 Dose: Not Given Pyrazinamide (Pyrazinamide) 1,000 mg PO TTS [facility]; Protocol Last Admin: 07/28/18 11:32 Dose: 1,000 mg Pyridoxine HCl (Vitamin B6 50 Mg Tab) 50 mg PO DAILY [facility] Last Admin: 07/29/18 10:39 Dose: Not Given Pyridoxine HCl (Vitamin B6 50 Mg Tab) 50 mg PO DAILY [facility] Last Admin: 07/29/18 10:39 Dose: Not Given Rifampin (Rifampin) 450 mg PO DAILY [facility]; Protocol Last Admin: 07/29/18 10:39 Dose: Not Given - Labs Labs: 07/30/18 07:03 07/30/18 07:03 - Constitutional Appears: No Acute Distress - Eye Exam Eye Exam: Normal appearance - ENT Exam ENT Exam: Mucous Membranes Moist - Neck Exam Neck Exam: Full ROM. absent: Lymphadenopathy - Respiratory Exam Respiratory Exam: Decreased Breath Sounds. absent: Rales, Rhonchi, Wheezes - Cardiovascular Exam Cardiovascular Exam: REGULAR RHYTHM, +S1, +S2. absent: Gallop, JVD, Murmur - GI/Abdominal Exam GI & Abdominal Exam: Soft. absent: Tenderness - Extremities Exam Extremities Exam: Full ROM, Normal Capillary Refill. absent: Calf Tenderness, Joint Swelling Assessment and Plan - Assessment and Plan (Free Text) Assessment: Pleural TB; HTN, ESRD Leucop[enia but ANC > 500 For discharge Advise serial labs next week Cont meds
[2018-07-30 09:46] VITALS: RESP 16
--- NOTE | 2018-07-30 09:58 | CP.PCM.PN ---
Subjective - Date & Time of Evaluation Date of Evaluation: 07/30/18 Time of Evaluation: 09:55 - Subjective Subjective: notes reviewed Comfortable on hd Seen in dialysis unit No complaints 10 point ros negative qb 325 Objective - Vital Signs/Intake and Output Vital Signs (last 24 hours): Temp Pulse Resp BP Pulse Ox 98 F 111 H 16 114/71 100 07/30/18 09:43 07/30/18 09:43 07/30/18 09:43 07/30/18 09:43 07/30/18 07:25 Intake and Output: 07/30/18 07/30/18 06:59 18:59 Intake Total 400 Balance 400 - Medications Medications: Current Medications Amlodipine Besylate (Norvasc) 5 mg PO DAILY [facility] Last Admin: 07/29/18 10:39 Dose: Not Given Ethambutol HCl (Myambutol) 800 mg PO TTS [facility]; Protocol Last Admin: 07/28/18 11:33 Dose: 800 mg Heparin Sodium (Porcine) (Heparin) 5,000 units SC Q12 [facility] Last Admin: 07/29/18 21:28 Dose: 5,000 units Isoniazid (Niazid) 300 mg PO DAILY [facility]; Protocol Last Admin: 07/29/18 10:39 Dose: Not Given Pyrazinamide (Pyrazinamide) 1,000 mg PO TTS [facility]; Protocol Last Admin: 07/28/18 11:32 Dose: 1,000 mg Pyridoxine HCl (Vitamin B6 50 Mg Tab) 50 mg PO DAILY [facility] Last Admin: 07/29/18 10:39 Dose: Not Given Pyridoxine HCl (Vitamin B6 50 Mg Tab) 50 mg PO DAILY [facility] Last Admin: 07/29/18 10:39 Dose: Not Given Rifampin (Rifampin) 450 mg PO DAILY [facility]; Protocol Last Admin: 07/29/18 10:39 Dose: Not Given - Labs Labs: 07/30/18 07:03 07/30/18 07:03 - Constitutional Appears: Well, Non-toxic - Head Exam Head Exam: ATRAUMATIC, NORMAL INSPECTION - Eye Exam Eye Exam: EOMI, Normal appearance - ENT Exam ENT Exam: Normal Oropharynx - Neck Exam Neck Exam: absent: Lymphadenopathy, Thyromegaly - Respiratory Exam Respiratory Exam: absent: Rales, Rhonchi, Wheezes - Cardiovascular Exam Cardiovascular Exam: +S1, +S2. absent: JVD - GI/Abdominal Exam GI & Abdominal Exam: Soft, Normal Bowel Sounds - Extremities Exam Extremities Exam: absent: Joint Swelling, Pedal Edema - Neurological Exam Neurological Exam: Alert, Awake, Oriented x3 Assessment and Plan (1) Hypertensive chronic kidney disease with stage 5 chronic kidney disease or end stage renal disease Status: Acute (2) ESRD (end stage renal disease) Status: Chronic (3) Anemia Status: Chronic - Assessment and Plan (Free Text) Assessment: Tolerating hd well UF goal 2 kg Monitor bp on hd Dialysis today to return to outpatient schedule Stable renal greene, continue current care
[2018-07-30 13:41] VITALS: BP 98/64; PULSE 114; TEMP 97.6
== END 2018-07-30 13:10 | disposition home or self-care (01) | DRG 682 ==
LOC: C.ER 10:00 → C.9E 12:44 → C.6T 14:14 → OBSVTOIN 07-28 19:00
PROVIDERS: ADMIT Internal Medicine; ATTEND Internal Medicine
PROC: 0B9F8ZX Drainage of Right Lower Lung Lobe, Via Natural or Artificial Opening Endoscopic, Diagnostic (ICD-10-PCS; principal; 2018-07-26 11:00)
DX: I12.0 Hypertensive chronic kidney disease with stage 5 chronic kidney disease or end stage renal disease (principal); N18.6 End stage renal disease; Z86.11 Personal history of tuberculosis; J45.909 Unspecified asthma, uncomplicated; Z99.2 Dependence on renal dialysis; D64.9 Anemia, unspecified